=== PATIENT | female | born 1950 | race Caucasian/White ===

== ENCOUNTER 2023-02-23 09:53 | Outpatient (OUT) | payer MEDICARE, SELFPAY ==
[2023-02-23 10:16] LABS: Basophils Percent Auto 0.6 % (0.2-2.0); Eosinophils Absolute Auto 0.2 10^3/uL (0.0-0.7); Eosinophils Percent Auto 2.6 % (0.9-7.0); Hematocrit 43.2 % (36.0-48.0); Hemoglobin 14.1 g/dL (12.0-16.0); Lymphocytes Absolute Auto 3.7 10^3/uL (1.2-3.8); Lymphocytes Percent Auto 50.8 % (20.5-60.0); Mean Corpuscular HGB Conc 32.6 g/dL (29.9-35.2); Mean Corpuscular Hemoglobin 29.3 pg (26.7-34.0); Mean Corpuscular Volume 89.6 fL (81.0-99.0); Mean Platelet Volume 11.3 fL (9.5-13.5); Monocytes Absolute Auto 0.5 10^3/uL (0.3-0.8); Monocytes Percent Auto 6.2 % (1.7-12.0); Neutrophils Absolute Auto 2.9 10^3/uL (1.4-6.5); Neutrophils Percent Auto 39.8 % (43.0-75.0); Platelet Count 218 10^3/uL (150-450); Red Blood Count 4.82 10^6/uL (4.20-5.40); Red Cell Distribution Width 14.3 % (11.0-15.0); White Blood Count 7.3 10^3/uL (4.0-11.0)
[2023-02-23 11:11] LABS: Alanine Aminotransferase 58 U/L (14-59); Anion Gap 14.3; BUN Creatinine Ratio 18.2; Calcium 9.2 mg/dL (8.5-10.1); Carbon Dioxide 25.6 mmol/L (21.0-32.0); Chloride 104 mmol/L (98-107); Chol HDL Ratio 3.6; Cholesterol 151 mg/dL (<=200); Estimated GFR (African America >60 (>=60); Estimated GFR (Non-African Ame >60 (>=60); Glucose 111 mg/dL (74-106); HDL Cholesterol 42 mg/dL (40-60); Potassium 3.9 mmol/L (3.5-5.1); Sodium 140 mmol/L (136-145); Thyroid Stimulating Hormone 4.853 uIU/mL (0.358-3.740); Triglycerides 95 mg/dL (<=150)
== END 2023-02-23 09:54 | disposition home or self-care (01) ==
LOC: LAB 09:55
PROVIDERS: PCP Internal Medicine; Visit Provider Internal Medicine
DX: Z79.899 Other long term (current) drug therapy (principal); E78.00 Pure hypercholesterolemia, unspecified; I10 Essential (primary) hypertension; E55.9 Vitamin D deficiency, unspecified; E06.3 Autoimmune thyroiditis
CPT/HCPCS: 36415; 80048; 80061; 82306; 84443; 84460; 85025

== ENCOUNTER 2023-05-18 10:50 | Outpatient (OUT) | payer MEDICARE, SELFPAY ==
--- NOTE | 2023-05-18 10:55 | MM_ITS ---
Patient Name: EPI GEORGE MR#: [id number] : 1950 Exam Date: 05/18/2023 Ordering Doctor: DR Al Soto D.O. RADIOLOGY REPORT PROCEDURE: MM TOMOSYNTHESIS SCREENING BI COMPARISON: MG MAMM SCREEN 3D IFEANYI CAD, 03/28/2021. MG MAMM SCREEN 3D IFEANYI CAD, 05/16/2022. INDICATIONS: screening Calculator Name NCI Breast Cancer Risk Assessment Tool 5 Year Breast Cancer Risk 1.30% Lifetime Breast Cancer Risk 3.30% Personal Breast Cancer No Personal Ovarian Cancer No Treatments None Family Cancers None LOCATION: [facility] BREAST COMPOSITION: Heterogeneously dense,which may obscure small masses. FINDINGS: DIAGNOSTIC CATEGORY 1--NEGATIVE. NO CHANGE FROM COMPARISON ASSESSMENT. Scattered benign-appearing calcifications are present. Scattered benign-appearing lymph nodes are present. RIGHT BREAST: No significant suspicious finding. LEFT BREAST: No significant suspicious finding. RECOMMENDATIONS: ROUTINE MAMMOGRAM AND CLINICAL EVALUATION IN 12 MONTHS. PLEASE NOTE: A NORMAL MAMMOGRAM DOES NOT EXCLUDE THE POSSIBILITY OF BREAST CANCER. A CLINICALLY SUSPICIOUS PALPABLE LUMP SHOULD BE BIOPSIED. Dictated by: Renan Ryder MD on 05/18/2023 at 14:17 Approved by: Renan Ryder MD on 05/18/2023 at 14:18
--- NOTE | 2023-05-18 10:55 | XR_ITS ---
[address] [address] Patient Name: EPI GEORGE MRN: [id number] date: 1950 Sex: F Assigned Patient Location: MAMMO Current Patient Location: [facility] Accession/Order Number: [id number] Exam Date: 05/18/2023 11:15 Report Date: 05/18/2023 11:49 At the request of: EDGAR LEVINE Procedure: XR DEXA axial skeleton EXAMINATION: XR DEXA axial skeleton, 05/18/2023 11:15 AM EST HISTORY: menopause Z78.0 COMPARISON: 2021, 2016, 2008. TECHNIQUE: Dual-energy X-ray absorptiometry (DEXA) bone density study performed for the axial skeleton. HISTORY: menopause Z78.0 FINDINGS: Bone mineral density AP spine L1-L4 measures 1.108 g/sq cm. T score -0.6. WHO classification: Normal. Lowest bone mineral density left femoral trochanter measures 0.662 g/sq cm. T score -1.6. WHO classification: Osteopenia XR/XR DEXA axial skeleton IMPRESSION: Osteopenia. Moderate fracture risk Electronically authenticated by: FRANCESCO PARKER Date: 05/18/2023 11:49
--- OUTSIDE RECORDS SUMMARY | 2023-05-18 11:12 | XMS_ITS | CCD ---
Author Name Unknown Address [address] [place] [address] Organization [facility] Care Team Providers Care Veterinary Technician Instructor Name Role Phone TAMERA [facility] Primary Care Unavailable DANNY, STEVIE Carbajal Attending Unavailable CROAK, STEVIE Carbajal Admitting Unavailable BALL, DR HERNÁNDEZ Admitting Unavailable BALL, DR HERNÁNDEZ Attending Unavailable BALL, DR HERNÁNDEZ Primary Care Unavailable BALL, DR HERNÁNDEZ Consulting Unavailable ZieberDandre Consulting Unavailable BALL, DR HERNÁNDEZ Admitting Unavailable BALL, DR HERNÁNDEZ Attending Unavailable BALL, DR HERNÁNDEZ Primary Care Unavailable BALL, DR HERNÁNDEZ Consulting Unavailable BALL, DR HERNÁNDEZ Admitting Unavailable BALL, DR HERNÁNDEZ Attending Unavailable BALL, DR HERNÁNDEZ Primary Care Unavailable BALL, DR HERNÁNDEZ Consulting Unavailable REQUEST, DR GONSALVES LISTED Admitting Unavaila ble REQUEST, DR GONSALVES LISTED Attending Unavaila ble BALL, DR HERNÁNDEZ Primary Care Unavailable REQUEST, DR GONSALVES LISTED Consulting Unavaila ble Ball, Al Unavailable Allergies Allergy Classification Reported Allergen(s) Allergy Type Date of Onset Reaction(s) Facility (1 source) Sulfamethoxazole / Trimethoprim Drug Allergy [facility] Repository (2 sources) patient allergy list reviewed by nurse or physicia Propensity to adverse reactions 06-30-19 Comment:Done [facility] Other (2 sources) Allergies Reconciled Propensity to adverse reactions Unknown [facility] Other (3 sources) Substance with sulfonamide structure and antibacterial mechanism of action (substance) Drug allergy 03-29-19 Unknown [facility] Other Medications Current Medications Medication Drug Class(es) Dates Sig (Normalized) Sig (Original) amLODIPine 2.5 mg oral tablet (4 sources) Dihydropyridine Calcium Channel Mar Start: 05-11-2023 take 2.5 mg by mouth twice daily Amlodipine Active 2.5 MG PO Twice daily May 11, 2023 12:00am take 1 tablet by mouth twice vidhi ly amLODIPine Besylate 2.5 MG 1 tablet Orally twice daily for 90 days Active take 1 tablet by mouth once henrietta y amLODIPine Besylate 2.5 MG Take 1 tablet by mouth once daily for 90 Active atorvastatin (3 sources) HMG-CoA Reductase Inhibitor Atorvastatin Calcium Active estradiol 0.1 mg/ml vaginal cream (2 sources) Estrogen Start: 05-11-2023 Estradiol Active 1 APPLICATOR VAGINAL As Directed May 11, 2023 12:00am Estradiol 0.1 MG /GM as directed Vaginal Active levothyroxine sodium 0.075 mg oral tablet (4 sources) l-Thyroxine Start: 05-11-2023 take 1 tablet by mouth once daily Levothyroxine (Euthyrox) 75 mcg tablet Active 75 MCG PO Daily May 11, 2023 12:00am Start: 02-26-2022 take 1 tablet by suzie th every twenty-four hours Euthyrox 75 MCG 1 tablet on an empty stomach oral daily for 90 days *Pick strength-form from [employer] for eRX* Feb, Active Start: 02-26-2022 take 1 tablet by mouth once da dario Euthyrox 75mcg Euthyrox 75mcg, 1 Tablet daily # 90, 02/26/2022, Ref. x3. Active oral daily for 90 *Pick strength-form from [employer] for eRX* Feb, Active losartan potassium 100 mg oral tablet (5 sources) Angiotensin 2 Receptor Mar Start: 05-11-2023 take 100 mg by mouth once daily Losartan Active 100 MG PO Daily May 11, 2023 12:00am Start: 02-26-2022 take 1 tablet by suzie th every twenty-four hours Losartan Potassium 100 MG 1 tablet Orally Once a day for 90 days Feb, Active lovastatin 20 mg oral tablet (4 sources) HMG-CoA Reductase Inhibitor Start: 05-11-2023 take 20 mg by mouth once daily Lovastatin Active 20 MG PO Daily May 11, 2023 12:00am Start: 02-26-2022 take 1 tablet by suzie th every twenty-four hours Lovastatin 20 MG 1 tablet oral daily for 90 days *Pick strength-form from [employer] for eRX* Feb, Active polymyxin b 11211 unt/ml / trimethoprim 1 mg/ml ophthalmic solution (1 source) Dihydrofolate Reductase Inhibitor Antibacterial, Polymyxin-class Antibacterial Start: 05-11-2023 take 1 drop(s) into the eye(s) four times daily Polymyxin B Sulf-Trimethoprim Active 1 DROPS OPHTHALMIC Four times daily 12 25May 11, 2023 12:00am Completed/Discontinued Medications Medication Drug Class(es) Dates Sig (Normalized) Sig (Original) cephalexin 500 mg oral capsule (3 sources) Cephalosporin Antibacterial Start: 09-26-2018 take 1 capsule by mouth every eight hours Cephalexin 500 MG 1 capsule Orally three times a day for 5 days Sep, Not-Taking/PRN Losartan Potassium-HCTZ (3 sources) Losartan Potassium-HCTZ Not-Taking/PRN Losartan Potassi um-HCTZ Active phenazopyridine hydrochloride 200 mg oral tablet (3 sources) Start: 09-26-2018 take 1 tablet by mouth every eight hours Pyridium 200 MG 1 tablet after meals Orally Three times a day for 2 day(s) Sep, Not-Taking/PRN Problems Active Problems Problem Classification Problem Date Documented Date Episodic/Chronic Diseases of white blood cells (7 sources) Lymphocytosis (symptomatic); Translations: [Lymphocytosis] Onset: 08-21-2021 Chronic Disorders of lipid metabolism (14 sources) Pure hypercholesterolemia, unspecified; Translations: [Hyperlipidemia] Onset: 06-29-2016 Resolved: 02-20-2021 Chronic Essential hypertension (9 sources) Essential (primary) hypertension; Translations: [Essential hypertension] Onset: 03-01-2022 Chronic Genitourinary symptoms and ill-defined conditions (3 sources) Polyuria; Translations: [Other polyuria] Episodic Immunizations and screening for infectious disease (3 sources) Vaccination given; Translations: [Encounter for immunization] Episodic Inflammation; infection of eye (except that caused by tuberculosis or sexually transmitteddisease) (2 sources) Bacterial conjunctivitis; Translations: [Unspecified conjunctivitis] 05-11-2023 Episodic Nutritional deficiencies (3 sources) Vitamin D deficiency; Translations: [Vitamin D deficiency, unspecified] Chronic Other aftercare (2 sources) Other correction (current) drug therapy; Translations: [OTH PROPERTY CUSTODIAN CURRENT DRUG THERAPY] Onset: 03-01-2022 Episodic Other aftercare (3 sources) Long-term current use of drug therapy; Translations: [Other 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 (current) drug therapy] Episodic Other injuries and conditions due to external causes (3 sources) History of fall; Translations: [History of falling] Episodic Other nutritional; endocrine; and metabolic disorders (3 sources) Overweight; Translations: [Overweight] Episodic Other screening for suspected conditions (not mental disorders or infectious disease) (5 sources) Encounter for screening mammogram for malignant neoplasm of breast; Translations: [ENC SCR MAMMO MALIG NEOPLASM BREAST] Onset: 05-16-2022 Episodic Prolapse of female genital organs (3 sources) Uterovaginal prolapse; Translations: [Uterovaginal prolapse, unspecified] Chronic Residual codes; unclassified (3 sources) Postmenopausal state; Translations: [Asymptomatic menopausal state] Episodic Residual codes; unclassified (3 sources) Procedure not done; Translations: [Procedure and treatment not carried out because of patient's decision for unspecified reasons] Episodic Residual codes; unclassified (1 source) Asymptomatic menopausal state Episodic Thyroid disorders (13 sources) Autoimmune thyroiditis; Translations: [Thyroiditis] Onset: 03-01-2022 Chronic Viral infection (6 sources) Herpes simplex; Translations: [Herpesviral infection, unspecified] Episodic Past or Other Problems Problem Classification Problem Date Documented Da te Episodic/Chronic Bacterial infection; unspecified site (3 sources) Bacterial infectious disease; Translations: [Bacterial infection, unspecified, in conditions classified elsewhere and of unspecified site] Onset: 09-29-2018 Episodic Malaise and fatigue (3 sources) Malaise and fatigue; Translations: [Other malaise and fatigue] Onset: 06-12-2017 Episodic Menopausal disorders (6 sources) Menopausal symptom; Translations: [Symptomatic menopausal or female climacteric states] Onset: 04-29-2016 Resolved: 02-20-2021 Chronic Residual codes; unclassified (3 sources) Requires influenza virus vaccination; Translations: [Need for prophylactic vaccination and inoculation, Influenza] Onset: 01-06-2018 Episodic Spondylosis; intervertebral disc disorders; other back problems (3 sources) Low back pain; Translations: [Low back pain, unspecified] Onset: 10-12-2018 Episodic Unclassified (3 sources) Long-term current use of drug therapy; Translations: [Long-term (current) use of other medications] Onset: 06-21-2018 Urinary tract infections (3 sources) Acute cystitis; Translations: [Acute cystitis without hematuria] Onset: 09-29-2018 Episodic Results Test Name Value Interpretation Reference Range Facility GEOVANNI - TSHon 06-05-2022 TSH 0.299 uIU/mL Critically low 0.358-3.740 [facility] Comment on above: Performed By: #### D ATTSH #### [facility] [address] [address] [address] Kali Haynes TSH RANGE SEE BELOW Normal [facility] Comment on above: Result Comment: <0.3 4 UIU/ml HYPERTHYROID 0.34-5.60 UIU/ml EUTHYROID >5.60 UIU/ml HYPOTHYROID Performed By: #### D ATTSH #### [facility] [address] [address] [address] Kali Haynes MG MAMM SCREEN 3D IFEANYI CADon 05-16-2022 MG MAMM SCREEN 3D IFEANYI CAD Patient: EPI DAILEY Exam Date: 05/16/2022 : 1950 Gender:F Ordering : DR AL SOTO D.O. Admission #: [id number] Family : Order #: [id number] CLICK HERE TO VIEW EXAM RADIOLOGY REPORT PROCEDURE: MAMMOGRAM SCREENING 3D BILATERAL CAD COMPARISON: MG MAMM SCREEN IFEANYI W CAD, 07/01/2018. MG MAMM SCREEN IFEANYI W CAD, 07/10/2016. MG MAMM IFEANYI SCRN W CAD DIG, 11/08/2014. MG MAMM SCREEN 3D IFEANYI CAD, 03/28/2021. INDICATIONS: Screening mammography Calculator Name NCI Breast Cancer Risk Assessment Tool 5 Year Breast Cancer Risk 1.30% Lifetime Breast Cancer Risk 3.50% Personal Breast Cancer No Personal Ovarian Cancer No Treatments None Family Cancers None LOCATION: [facility] BREAST COMPOSITION: Heterogeneously dense,which may obscure small masses. FINDINGS: DIAGNOSTIC CATEGORY 1--NEGATIVE. RIGHT BREAST: No significant suspicious finding. No significant change has occurred. LEFT BREAST: No significant suspicious finding. No significant change has occurred. RECOMMENDATIONS: ROUTINE MAMMOGRAM AND CLINICAL EVALUATION IN 12 MONTHS. PLEASE NOTE: A NORMAL MAMMOGRAM DOES NOT EXCLUDE THE POSSIBILITY OF BREAST CANCER. A CLINICALLY SUSPICIOUS PALPABLE LUMP SHOULD BE BIOPSIED. Dictated by: Dandre Ward M.D. on 05/16/2022 at 14:23 Approved by: Dandre Ward M.D. on 05/16/2022 at 14:31 Normal [facility] CBC AUTO DIFFon 02-24-2022 BASO # 0.0 103/ul Normal 0.0-0.1 [facility] Comment on above: Performed By: #### C BC #### [facility] [address] [address] [address] Kali Haynes Basophils/100 WBC (Bld) 0.5 % Normal 0.2-2.0 [facility] Comment on above: Performed By: #### C BC #### [facility] [address] [address] [address] Kali Haynes EO # 0.2 103/ul Normal 0.0-0.7 [facility] Comment on above: Performed By: #### C BC #### [facility] [address] [address] [address] Kali Haynes Eosinophils/100 WBC (Bld) 2.8 % Normal 0.9-7.0 [facility] Comment on above: Performed By: #### C BC #### [facility] [address] [address] [address] Kali Haynes Erythrocyte distribution width (RBC) [Ratio] 13.9 % Normal 11.0-15.0 [facility] Comment on above: Performed By: #### C BC #### [facility] [address] [address] [address] Kali Haynes Hematocrit (Bld) [Volume fraction] 43.0 % Normal 36.0-48.0 [facility] Comment on above: Performed By: #### C BC #### [facility] [address] [address] [address] Kali Haynes Hemoglobin (Bld) [Mass/Vol] 14.5 g/dL Normal 12.0-16.0 [facility] Comment on above: Performed By: #### C BC #### [facility] [address] [address] [address] Kali Haynes IG # 0.01 10e3/ul Normal 0.00-0.03 [facility] Comment on above: Performed By: #### C BC #### [facility] [address] [place] [address] Dr. Kali Haynes IG % 0.2 % Normal 0.0-0.5 [facility] Comment on above: Performed By: #### C BC #### [facility] [address] [place] [address] Dr. Kali Haynes LYMPH # 3.9 103/ul Critically high 1.2-3.8 [facility] Comment on above: Performed By: #### C BC #### [facility] [address] [place] [address] Dr. Kali Haynes Lymphocytes/100 WBC (Bld) 59.7 % Normal 20.5-60.0 [facility] Comment on above: Performed By: #### C BC #### [facility] [address] [place] [address] Dr. Kali Haynes MANUAL DIFF REQ NO Normal [facility] Comment on above: Performed By: #### C BC #### [facility] [address] [place] [address] Dr. Kali Haynes MCH (RBC) [Entitic mass] 29.3 pg Normal 26.7-34.0 [facility] Comment on above: Performed By: #### C BC #### [facility] [address] [place] [address] Dr. Kali Haynes MCHC (RBC) [Mass/Vol] 33.7 g/dL Normal 29.9-35.2 [facility] Comment on above: Performed By: #### C BC #### [facility] [address] [place] [address] Dr. Kali Haynes MCV (RBC) [Entitic vol] 86.9 fL Normal 81.0-99.0 [facility] Comment on above: Performed By: #### C BC #### [facility] [address] [place] [address] Dr. Kali Haynes MONO # 0.4 103/ul Normal 0.3-0.8 [facility] Comment on above: Performed By: #### C BC #### [facility] [address] [address] [address] Kali Haynes Monocytes/100 WBC (Bld) 6.5 % Normal 1.7-12.0 [facility] Comment on above: Performed By: #### C BC #### [facility] [address] [address] [address] Kali Haynes NEUT # 2.0 103/ul Normal 1.4-6.5 [facility] Comment on above: Performed By: #### C BC #### [facility] [address] [address] [address] Kali Haynes Neutrophils/100 WBC (Bld) 30.3 % Critically low 43.0-75.0 [facility] Comment on above: Performed By: #### C BC #### [facility] [address] [place] [address] Dr. Kali Haynes Platelet mean volume (Bld) [Entitic vol] 11.1 fL Normal 9.5-13.5 [facility] Comment on above: Performed By: #### C BC #### [facility] [address] [place] [address] Dr. Kali Haynes PLT 221 103/ul Normal 150-450 [facility] Comment on above: Performed By: #### C BC #### [facility] [address] [place] [address] Dr. Kali Haynes RBC 4.95 106/ul Normal 4.20-5.40 [facility] Comment on above: Performed By: #### C BC #### [facility] [address] [place] [address] Dr. Kali Haynes WBC 6.5 103/ul Normal 4.0-11.0 [facility] Comment on above: Performed By: #### C BC #### [facility] [address] [place] [address] Dr. Kali Haynes LIPID PROFILEon 02-24-2022 CHOL-HDL RATIO NORM SEE BELOW Normal [facility] Comment on above: Result Comment: 3.3 - 4.4 LOW RISK 4.4 - 7.1 AVERAGE RISK 7.1 - 11.0 MODERATE RISK >11.0 HIGH RISK Performed By: #### T SH, BMP, LIPID, ALT #### [facility] [address] [address] [address] Kali Haynes Cholesterol [Mass/Vol] 151 mg/dL Normal <=200 [facility] Comment on above: Performed By: #### T SH, BMP, LIPID, ALT #### [facility] [address] [address] [address] Kali Haynes Cholesterol in HDL [Mass/Vol] 39 mg/dL Critically low 40-60 [facility] Comment on above: Performed By: #### T SH, BMP, LIPID, ALT #### [facility] [address] [place] [address] Dr. Kali Haynes Cholesterol in LDL [Mass/Vol] 85.6 mg/dL Normal [facility] Comment on above: Performed By: #### T SH, BMP, LIPID, ALT #### [facility] [address] [address] [address] Kali Haynes Cholesterol.total/C holesterol in HDL [Mass ratio] 3.9 {ratio} Normal [facility] Comment on above: Performed By: #### T SH, BMP, LIPID, ALT #### [facility] [address] [place] [address] Dr. Kali Haynes HDL NORMAL > or = 60 mg/dl - LO W CARDIOVASCULAR RISK <40 mg/dl - HIGH CARDIOVASCULAR RISK Normal [facility] Comment on above: Performed By: #### T SH, BMP, LIPID, ALT #### [facility] [address] [place] [address] Dr. Kali Haynes LDL CALC NORMAL SEE BELOW Normal [facility] Comment on above: Result Comment: <100 mg/dl OPTIMAL 100 - 129 mg/dl NEAR OR ABOVE OPTIMAL 130 - 159 mg/dl BORDERLINE HIGH 160 - 189 mg/dl HIGH >190 mg/dl VERY HIGH Performed By: #### T SH, BMP, LIPID, ALT #### [facility] [address] [address] [address] Kali Haynes Triglyceride [Mass/Vol] 132 mg/dL Normal <=150 [facility] Comment on above: Performed By: #### T SH, BMP, LIPID, ALT #### [facility] [address] [address] [address] Kali Haynes VLDL CALC 26.4 mg/dL Normal [facility] Comment on above: Performed By: #### T SH, BMP, LIPID, ALT #### [facility] [address] [address] [address] Kali Haynes PROF CHEM 8 (BAS METB)on Anion gap [Moles/Vol] 12.5 mmol/L Normal [facility] Comment on above: Performed By: #### T SH, BMP, LIPID, ALT #### [facility] [address] [address] [address] Kali Haynes Calcium [Mass/Vol] 9.4 mg/dL Normal 8.5-10.1 [facility] Comment on above: Performed By: #### T SH, BMP, LIPID, ALT #### [facility] [address] [place] [address] Dr. Kali Haynes Chloride [Moles/Vol] 103 mmol/L Normal 98-107 [facility] Comment on above: Performed By: #### T SH, BMP, LIPID, ALT #### [facility] [address] [place] [address] Dr. Kali Haynes CO2 [Moles/Vol] 26.3 mmol/L Normal 21.0-32.0 [facility] Comment on above: Performed By: #### T SH, BMP, LIPID, ALT #### [facility] [address] [place] [address] Dr. Kali Haynes Creatinine [Mass/Vol] 0.82 mg/dL Normal 0.55-1.02 [facility] Comment on above: Performed By: #### T SH, BMP, LIPID, ALT #### [facility] [address] [place] [address] Dr. Kali Haynes EGFR-AF BURUNDIAN >60 Normal >=60 [facility] Comment on above: Performed By: #### T SH, BMP, LIPID, ALT #### [facility] [address] [address] [address] Kali Haynes EGFR-NON AF BURUNDIAN >60 Normal >=60 [facility] Comment on above: Performed By: #### T SH, BMP, LIPID, ALT #### [facility] [address] [address] [address] Kali Haynes Glucose [Mass/Vol] 110 mg/dL Critically high 74-106 [facility] Comment on above: Performed By: #### T SH, BMP, LIPID, ALT #### [facility] [address] [address] [address] Kali Haynes Potassium [Moles/Vol] 3.8 mmol/L Normal 3.5-5.1 [facility] Comment on above: Performed By: #### T SH, BMP, LIPID, ALT #### [facility] [address] [address] [address] Kali Haynes Sodium [Moles/Vol] 138 mmol/L Normal 136-145 [facility] Comment on above: Performed By: #### T SH, BMP, LIPID, ALT #### [facility] [address] [address] [address] Kali Haynes Urea nitrogen [Mass/Vol] 17.0 mg/dL Normal 7.0-18.0 [facility] Comment on above: Performed By: #### T SH, BMP, LIPID, ALT #### [facility] [address] [address] [address] Kali Haynes Urea nitrogen/Creatinine [Mass ratio] 20.7 mg/mg Normal [facility] Comment on above: Performed By: #### T SH, BMP, LIPID, ALT #### [facility] [address] [address] [address] Kali Haynes SGPTon 02-24-2022 ALT [Catalytic activity/Vol] 36 U/L Normal 14-59 [facility] Comment on above: Performed By: #### T SH, BMP, LIPID, ALT #### [facility] [address] [address] [address] Kali Haynes TSHon 02-24-2022 TSH 4.788 uIU/mL Critically high 0.358-3.740 [facility] Comment on above: Performed By: #### T SH, BMP, LIPID, ALT #### [facility] [address] [place] [address] Dr. Kali Haynes CBC AUTO DIFFon 08-21-2021 BASO # 0.0 103/ul Normal 0.0-0.1 [facility] Comment on above: Performed By: #### C BC #### [facility] [address] [place] [address] Dr. Kali Haynes Basophils/100 WBC (Bld) 0.5 % Normal 0.2-2.0 [facility] Comment on above: Performed By: #### C BC #### [facility] [address] [place] [address] Dr. Kali Haynes EO # 0.2 103/ul Normal 0.0-0.7 [facility] Comment on above: Performed By: #### C BC #### [facility] [address] [place] [address] Dr. Kali Haynes Eosinophils/100 WBC (Bld) 2.6 % Normal 0.9-7.0 [facility] Comment on above: Performed By: #### C BC #### [facility] [address] [place] [address] Dr. Kali Haynes Erythrocyte distribution width (RBC) [Ratio] 14.4 % Normal 11.0-15.0 [facility] Comment on above: Performed By: #### C BC #### [facility] [address] [place] [address] Dr. Kali Haynes Hematocrit (Bld) [Volume fraction] 40.4 % Normal 36.0-48.0 [facility] Comment on above: Performed By: #### C BC #### [facility] [address] [place] [address] Dr. Kali Haynes Hemoglobin (Bld) [Mass/Vol] 13.3 g/dL Normal 12.0-16.0 [facility] Comment on above: Performed By: #### C BC #### [facility] [address] [place] [address] Dr. Kali Haynes IG # 0.01 10e3/ul Normal 0.00-0.03 [facility] Comment on above: Performed By: #### C BC #### [facility] [address] [place] [address] Dr. Kali Haynes IG % 0.2 % Normal 0.0-0.5 [facility] Comment on above: Performed By: #### C BC #### [facility] [address] [place] [address] Dr. Kali Haynes LYMPH # 3.0 103/ul Normal 1.2-3.8 [facility] Comment on above: Performed By: #### C BC #### [facility] [address] [place] [address] Dr. Kali Haynes Lymphocytes/100 WBC (Bld) 48.6 % Normal 20.5-60.0 [facility] Comment on above: Performed By: #### C BC #### [facility] [address] [place] [address] Dr. Kali Haynes MANUAL DIFF REQ NO Normal [facility] Comment on above: Performed By: #### C BC #### [facility] [address] [place] [address] Dr. Kali Haynes MCH (RBC) [Entitic mass] 29.0 pg Normal 26.7-34.0 [facility] Comment on above: Performed By: #### C BC #### [facility] [address] [place] [address] Dr. Kali Haynes MCHC (RBC) [Mass/Vol] 32.9 g/dL Normal 29.9-35.2 [facility] Comment on above: Performed By: #### C BC #### [facility] [address] [place] [address] Dr. Kali Haynes MCV (RBC) [Entitic vol] 88.0 fL Normal 81.0-99.0 [facility] Comment on above: Performed By: #### C BC #### [facility] [address] [place] [address] Dr. Kali Haynes MONO # 0.5 103/ul Normal 0.3-0.8 [facility] Comment on above: Performed By: #### C BC #### [facility] Laboratory [address] [place] [address] Dr. Kali Haynes Monocytes/100 WBC (Bld) 7.4 % Normal 1.7-12.0 [facility] Comment on above: Performed By: #### C BC #### [facility] [address] [place] [address] Dr. Kali Haynes NEUT # 2.5 103/ul Normal 1.4-6.5 [facility] Comment on above: Performed By: #### C BC #### [facility] [address] [place] [address] Dr. Kali Haynes Neutrophils/100 WBC (Bld) 40.7 % Critically low 43.0-75.0 [facility] Comment on above: Performed By: #### C BC #### [facility] [address] [place] [address] Dr. Kali Haynes Platelet mean volume (Bld) [Entitic vol] 11.3 fL Normal 9.5-13.5 [facility] Comment on above: Performed By: #### C BC #### [facility] [address] [place] [address] Dr. Kali Haynes PLT 218 103/ul Normal 150-450 [facility] Comment on above: Performed By: #### C BC #### [facility] [address] [place] [address] Dr. Kali Haynes RBC 4.59 106/ul Normal 4.20-5.40 [facility] Comment on above: Performed By: #### C BC #### [facility] [address] [place] [address] Dr. Kali Haynes WBC 6.2 103/ul Normal 4.0-11.0 [facility] Comment on above: Performed By: #### C BC #### [facility] [address] [place] [address] Dr. Kali Haynes Basic Metab w/rfx MGon 10-12 (cont.) Normal [facility] Comment on above: Result Comment: Aver age GFR for 60-69 years old: 85 mL/min/1.73sq m Chronic Kidney Disease: <60 mL/min/1.73sq m Kidney failure: <15 mL/min/1.73sq m eGFR calculated using average adult body mass. Additional eGFR calculator available at: http://www.[employer]/multiple_crcl_2012.htm Performed By: #### C DP, BMPX #### [place] [address] Food Stand Manager: Antonio Vázquez MD Anion gap [Moles/Vol] 11 mmol/L Normal 9-17 [facility] Comment on above: Performed By: #### C DP, BMPX #### [place] [address] Food Stand Manager: Antonio Vázquez MD Calcium [Mass/Vol] 9.0 mg/dL Normal 8.6-10.4 [facility] Comment on above: Performed By: #### C DP, BMPX #### [place] [address] Food Stand Manager: Antonio Vázquez MD Chloride [Moles/Vol] 99 mmol/L Normal 98-107 [facility] Comment on above: Performed By: #### C DP, BMPX #### [place] [address] Food Stand Manager: Antonio Vázquez MD CO2 [Moles/Vol] 21 mmol/L Normal 20-31 [facility] Comment on above: Performed By: #### C DP, BMPX #### [place] [id number] Food Stand Manager: Antonio Vázquez MD Creatinine [Mass/Vol] 0.63 mg/dL Normal 0.50-0.90 [facility] Comment on above: Performed By: #### C DP, BMPX #### [facility] [address] [place], [place] [id number] Food Stand Manager: Antonio Vázquez MD GFR, Amer >60 Normal >60 [facility] Comment on above: Performed By: #### C DP, BMPX #### [facility] [id number] [place], [place] [id number] Food Stand Manager: Antonio Vázquez MD GFR,non Amer >60 Normal >60 [facility] Comment on above: Performed By: #### C DP, BMPX #### [place] [id number] Food Stand Manager: Antonio Vázquez MD Glucose [Mass/Vol] 132 mg/dL High 70-99 [facility] Comment on above: Performed By: #### C DP, BMPX #### [place] [id number] Food Stand Manager: Antonio Vázquez MD Potassium [Moles/Vol] 3.7 mmol/L Normal 3.7-5.3 [facility] Comment on above: Performed By: #### C DP, BMPX #### [place] [id number] Food Stand Manager: Antonio Vázquez MD Sodium [Moles/Vol] 131 mmol/L Low 135-144 [facility] Comment on above: Performed By: #### C DP, BMPX #### [address] [id number] Food Stand Manager: Antonio Vázquez MD Urea nitrogen [Mass/Vol] 13 mg/dL Normal 8-23 [facility] Comment on above: Performed By: #### C DP, BMPX #### [place] [address] Food Stand Manager: Antonio Vázquez MD BUN/CRE Ratio NOT REPORTED Normal -20 [facility] Comment on above: Performed By: #### C DP, BMPX #### [place] [address] Food Stand Manager: Antonio Vázquez MD Staging: NOT REPORTED Normal [facility] Comment on above: Performed By: #### C DP, BMPX #### [place] [address] Food Stand Manager: Antonio Vázquez MD CBC with Diffon 10-12-2020 Abs. Basophil 0.10 k/uL Normal 0.0-0.2 [facility] Comment on above: Performed By: #### C DP, BMPX #### [place] [address] Food Stand Manager: Antonio Vázquez MD Abs.Neutrophil (Seg) 6.20 k/uL Normal 1.8-7.7 [facility] Comment on above: Performed By: #### C DP, BMPX #### [place] [address] Food Stand Manager: Antonio Vázquez MD Basophils/100 WBC (Bld) 1 % Normal 0-2 [facility] Comment on above: Performed By: #### C DP, BMPX #### [place] [address] Food Stand Manager: Antonio Vázquez MD Eosinophils (Bld) [#/Vol] 0.00 10*3/uL Normal 0.0-0.4 [facility] Comment on above: Performed By: #### C DP, BMPX #### [place] [address] Food Stand Manager: Antonio Vázquez MD Eosinophils/100 WBC (Bld) 0 % Low 1-4 [facility] Comment on above: Performed By: #### C DP, BMPX #### [place] [address] Food Stand Manager: Antonio Vázquez MD Erythrocyte distribution width (RBC) [Ratio] 14.0 % Normal 12.5-15.4 [facility] Comment on above: Performed By: #### C DP, BMPX #### [place] [address] Food Stand Manager: Antonio Vázquez MD Hematocrit (Bld) [Volume fraction] 34.5 % Low 36-46 [facility] Comment on above: Performed By: #### C DP, BMPX #### [place] [address] Food Stand Manager: Antonio Vázquez MD Hemoglobin (Bld) [Mass/Vol] 11.3 g/dL Low 12.0-16.0 [facility] Comment on above: Performed By: #### C DP, BMPX #### [place] [address] Food Stand Manager: Antonio Vázquez MD Lymphocytes (Bld) [#/Vol] 4.10 10*3/uL Normal 1.0-4.8 [facility] Comment on above: Performed By: #### C DP, BMPX #### [place] [address] Food Stand Manager: Antonio Vázquez MD Lymphocytes/100 WBC (Bld) 38 % Normal 24-44 [facility] Comment on above: Performed By: #### C DP, BMPX #### [place] [address] Food Stand Manager: Antonio Vázquez MD MCH (RBC) [Entitic mass] 29.7 pg Normal 26-34 [facility] Comment on above: Performed By: #### C DP, BMPX #### [place] [address] Food Stand Manager: Antonio Vázquez MD MCHC (RBC) [Mass/Vol] 32.9 g/dL Normal 31-37 [facility] Comment on above: Performed By: #### C DP, BMPX #### [place] [address] Food Stand Manager: Antonio Vázquez MD MCV (RBC) [Entitic vol] 90.4 fL Normal 80-100 [facility] Comment on above: Performed By: #### C DP, BMPX #### [place] [address] Food Stand Manager: Antonio Vázquez MD Monocytes (Bld) [#/Vol] 0.50 10*3/uL Normal 0.1-1.2 [facility] Comment on above: Performed By: #### C DP, BMPX #### [place] [address] Food Stand Manager: Antonio Vázquez MD Monocytes/100 WBC (Bld) 5 % Normal 2-11 [facility] Comment on above: Performed By: #### C DP, BMPX #### [place] [address] Food Stand Manager: Antoino Vázquez MD Neutrophil (Seg) 56 % Normal 36-66 [facility] Comment on above: Performed By: #### C DP, BMPX #### [place] [id number] Food Stand Manager: Antonio Vázquez MD Platelet mean volume (Bld) [Entitic vol] 9.6 fL Normal 6.0-12.0 [facility] Comment on above: Performed By: #### C DP, BMPX #### [place] [id number] Food Stand Manager: Antonio Vázquez MD Platelets (Bld) [#/Vol] 172 10*3/uL Normal 140-450 [facility] Comment on above: Performed By: #### C DP, BMPX #### [place] [address] Food Stand Manager: Antonio Vázquez MD RBC (Bld) [#/Vol] 3.81 10*6/uL Low 4.0-5.2 [facility] Comment on above: Performed By: #### C DP, BMPX #### [place] [address] Food Stand Manager: Antonio Vázquez MD WBC (Bld) [#/Vol] 11.0 10*3/uL Normal 3.5-11.0 [facility] Comment on above: Performed By: #### C DP, BMPX #### [place] [id number] Food Stand Manager: Antonio Vázquez MD Abs.Imm.Granulocyte NOT REPORTED Normal 0.00-0.30 [facility] Comment on above: Performed By: #### C DP, BMPX #### [facility] [address] [place] [address] Food Stand Manager: Antonio Vázquez MD Auto Diff Performed NOT REPORTED Normal [facility] Comment on above: Performed By: #### C DP, BMPX #### [address] [address] Food Stand Manager: Antonio Vázquez MD Immature Granulocyte NOT REPORTED Normal 0 [facility] Comment on above: Performed By: #### C DP, BMPX #### [place] [address] Food Stand Manager: Antonio Vázquez MD NRBC Automated NOT REPORTED Normal [facility] Comment on above: Performed By: #### C DP, BMPX #### [place] [address] Food Stand Manager: Antonio Vázquez MD Platelet Estimate NOT REPORTED Normal [facility] Comment on above: Performed By: #### C DP, BMPX #### [place] [address] Food Stand Manager: Antonio Vázquez MD RBC morphology finding Nom (Bld) NOT REPORTED Normal [facility] Comment on above: Performed By: #### C DP, BMPX #### [place] [address] Food Stand Manager: Antonio Vázquez MD WBC Morphology NOT REPORTED Normal [facility] Comment on above: Performed By: #### C DP, BMPX #### [place] [id number] Food Stand Manager: Antonio Vázquez MD OPERATIVE REPORTon 1 OPERATIVE REPORT [address] [place] [address] OPERATIVE REPORT PATIENT NAME: EPI DAILEY : 1950 MED REC NO: [id number] ROOM: [facility] ACCOUNT NO: [id number] ADMIT DATE: 10/11/2020 PROVIDER: Stevie Hopper DATE OF PROCEDURE: 10/11/2020 INDICATIONS FOR SURGERY: Symptomatic pelvic organ prolapse and stress urinary incontinence. PREOPERATIVE DIAGNOSES: Grade 2 uterine prolapse, grade 3 cystocele, grade 1-2 rectocele under anesthesia with stress urinary incontinence. POSTOPERATIVE DIAGNOSES: Grade 2 uterine prolapse, grade 3 cystocele, grade 1-2 rectocele under anesthesia with stress urinary incontinence plus enterocele and grade 1 endometriosis of the right uterosacral ligament. PROCEDURES: Robotic-assisted laparoscopic hysterectomy with bilateral salpingo-oophorectomy, internal Galdamez-Montelongo culdoplasty with uterosacral suspension and enterocele repair, anterior colporrhaphy, cystourethroscopy, filling cystometrogram, Lynx retropubic sling placement, posterior colporrhaphy, fulguration of endometriosis. SURGEON: Stevie Hopper DO ASSISTANTS: Radha Martinez DO and Juanita Pacheco DO ANESTHESIA: General endotracheal. FINDINGS: As above. SPECIMENS: Uterus, cervix, fallopian tubes, ovaries, vaginal mucosa. BLOOD LOSS: 30 mL. COMPLICATIONS: None. IMPLANTS: Lynx retropubic sling. COURSE: Prior to the procedure, risks and benefits of the procedure explained to the patient. The patient understood and signed informed consent under no duress or confusion. She received a preoperative antibiotic and EPC cuffs were functional. She was taken back to the OR and prepped and draped in sterile fashion in the dorsal lithotomy position in [facility], confirmed to be neutrally positioned by myself. A surgical time-out was taken. A weighted speculum was placed in the vagina and a VCare uterine manipulator was placed without incident. A Awan catheter was also placed to drain clear urine. With the legs lowered and the patient in supine position, an infraumbilical skin incision was made. A Veress needle introduced in the intraperitoneal cavity. A saline test confirmed appropriate placement and adequate CO2 gas insufflation followed for an operative pneumoperitoneum. The Veress was exchanged for an 8-mm bladeless trocar, which was placed atraumatically. The patient was tipped in Trendelenburg position. 8-mm ports were placed in the right and left lower quadrants and a 12-mm port was placed in the right upper quadrant. The robot had bipolar [place] forceps docked in 2 with the robot and monopolar scissors in 4. The utero-ovarian, round, and broad ligaments were clamped, fulgurated and cut down to the level of the uterine vessels. Ureters were away. The broad ligaments were taken down and the vessels were skeletonized, clamped, fulgurated and cut. The bladder flap was taken down anteriorly. Uterosacral ligaments were transected posteriorly and there was some blueberry nodules of endometriosis on the right uterosacral ligament that were fulgurated. Eventually dissection down to the cuff was obtained and circumferential transection of the cuff away from the vagina was completed. Uterus and cervix were delivered vaginally. Tubo-ovarian structures were drawn into the midline, clamped, fulgurated, and cut and then delivered vaginally. The vaginal mucosa was then closed in a [id number] mucosal-mucosal fashion, incorporating the angles and uterosacral ligaments into the cuff for support. PDS suture was also used to complete an internal Galdamez-Montelongo culdoplasty and uterosacral suspension, thus obliterating the enterocele sac. A low-pressure test at this time confirmed some adequate hemostasis. The patient was lowered to 10 degrees Trendelenburg after robot was undocked. The laparoscope was kept active except for the accessory port, which had its fascia closed with a Tomas Solis fascial closure device and no defects were noted. This was to observe the sling being placed to ensure no intraperitoneal passage of the sling trocars. Next, for the sling, a marking pen was used to make two suprapubic hong staying 2 cm lateral to pubic symphysial midline. These were injected with 15 mL a piece of 1% lidocaine plain. The mid-urethra was injected with 5 mL of 1% lidocaine with epinephrine. Scalpel incisions were made in all three areas. Metzenbaum dissection staying superficial to the periurethral fascia, gained access to the retropubic bilaterally without undue increase in bleeding. The urethra was deviated during this time with the Awan catheter. Cystourethroscopy with 17-Filipino 30-degree cystourethroscope confirmed bilateral ureteral patency and Pyridium-stained urine out of the ureters with the Lasix challenge. There was no intravesical or intraurethral passage of sling trocars. The sling with sheath was then attached to the trocars (more content not included)... Normal [facility] Surgical Pathologyon 10-11-2 021 Surgical Pathology (NOTE) -- Diagnosis -- 1. UTERUS, BILATERAL TUBES AND OVARIES, HYSTERECTOMY WITH BILATERAL SALPINGO-OOPHORECTOMY: -ADENOMYOSIS. -BENIGN ENDOMETRIAL POLYPS. -WEAKLY PROLIFERATIVE ENDOMETRIUM. -MILD CHRONIC CERVICITIS WITH FOCAL EROSION. -BENIGN BILATERAL FALLOPIAN TUBES WITH BENIGN PARATUBAL CYSTS. -BENIGN BILATERAL OVARIES. 2. VAGINAL MUCOSA, EXCISION: -BENIGN SQUAMOUS MUCOSA WITH MILD STROMAL CHRONIC INFLAMMATION. Renan Keating M.D Electronically Signed Out 10/12/2020 Clinical Information Pre-op Diagnosis: CYSTOCELE, RECTOCELE, UTERINE PROLAPSE Operative Findings: UTERUS, BILATERAL TUBES AND OVARIES Operation Performed: HYSTERECTOMY VAGINAL LAPAROSCOPIC ROBOTIC ASSISTED WITH BILATERAL SALPINGO-OOPHORECTOMY, VAGINAL REPAIR ANTERIOR/POSTERIOR LYNX SLING CYSTOSCOPY Source of Specimen 1: UTERUS, BILATERAL TUBES, AND OVARIES 2: VAGINAL MUCOSA Gross Description 1. EPI ARIEL, UTERUS, BILATERAL TUBES AND OVARIES Uterus with attached cervix and separate adnexa. Dimensions: Uterus and cervix 7.6 x 5.2 x 2.5 cm. Weight: Uterus and cervix 42 grams, first tube and ovary 3 grams, second tube and ovary 4 grams. Serosa: [place]-ho. Cervix: 4.3 x 3.5 x 3.4 cm, unremarkable with a patent os. Endometrium: The cavity is 3.5 x 1.5 cm with a pale ho surface and anteriorly and posteriorly, there are two polypoid foci, 0.4 cm and 0.7 cm. The subjacent myometrium is unremarkable. Myometrium: The myometrium has a maximum thickness of 1.2 cm with no masses. Tubes/ovaries: The first fallopian tube segment is fimbriated, 3.5 cm long x 0.4 cm in diameter with a pink-ho serosa, a few adhesions and an unremarkable lumen. The 2.5 x 1.5 x 0.8 cm corresponding ovary has an intact pink-ho external surface. Sectioning reveals no masses. The second fimbriated fallopian tube segment is 4.5 cm long x 0.4 cm in diameter with a pink-ho serosa and an unremarkable lumen. The 2.0 x 1.2 x 0.7 cm corresponding ovary has a ho-pink external surface. Sectioning reveals no masses. Cassette summary: A anterior cervix, B posterior cervix, C-D anterior endomyometrium full thickness sections including polypoid focus, E-F posterior endomyometrium full thickness sections including polypoid focus, G-H first tube and ovary with tube in entirety, I-J second tube and ovary with tube in entirety. 2. EPI DAILEY, VAGINAL MUCOSA Wrinkled pink-white fragments, 4.0 x 1.8 x 0.6 cm in aggregate. No masses are seen. Equipment Engineering Technician sections 1cs. tm Microscopic Description 1, 2. Microscopic examination performed. SURGICAL PATHOLOGY CONSULTATION Patient Name: EPI DAILEY Rec: [id number] Path Number: [id number] [facility] ANATOMIC PATHOLOGY [address] [place] [id number] Normal [facility] Comment on above: Performed By: #### P PPVS #### [address] [address] Food Stand Manager: Matthew España MD Type + Screenon 10-11-2020 Type + Screen Sample Expiration 10/14/2020,2359 Arm Band Number BE [id number] ABO/Rh(D) B POSITIVE Antibody Screen NEGATIVE Normal [facility] Comment on above: Performed By: #### T YS #### [facility] [address] [place] [address] Food Stand Manager: Antonio Vázquez MD Auth for Release of Medical Recordson 03-30-2020 Auth for Release of Medical Records [id number] 0CD:127 [facility] Auth for Release of Medical Records [id number] 0CD:127 Normal [facility] Retail - Clinical Noteon Retail - Clinical Note [id number] CD:127 Normal [facility] BASIC METABOLIC PANELon 08- Calcium [Mass/Vol] 9.4 mg/dL Normal 8.6-10.3 [facility] Comment on above: Order Comment: No: D o not add to previous draw Performed By: #### 0 0071, 40592, 21584 #### [facility] [address] [place] [address], [place] Chloride [Moles/Vol] 102 mmol/L Normal 98-107 [facility] Comment on above: Order Comment: No: D o not add to previous draw Performed By: #### 0 0071, 33874, 57880 #### [facility] [address] [place] [address], [place] CO2 [Moles/Vol] 27 mmol/L Normal 21-31 [facility] Comment on above: Order Comment: No: D o not add to previous draw Performed By: #### 0 0071, 81783, 94771 #### [facility] [address] [place] [address], [place] Creatinine [Mass/Vol] 0.63 mg/dL Normal 0.60-1.20 [facility] Comment on above: Order Comment: No: D o not add to previous draw Performed By: #### 0 0071, 17959, 49862 #### [facility] [address] [place] [address], [place] GFR/1.73 sq M predicted among blacks MDRD (S/P/Bld) [Vol rate/Area] mL/min/{1.73_m2} Normal >60 [facility] Comment on above: Order Comment: No: D o not add to previous draw Performed By: #### 0 0071, 40778, 11474 #### [facility] [address] [place] [address], [place] GFR/1.73 sq M predicted among non-blacks MDRD (S/P/Bld) [Vol rate/Area] mL/min/{1.73_m2} Normal >60 [facility] Comment on above: Order Comment: No: D o not add to previous draw Performed By: #### 0 0071, 59263, 42977 #### [facility] [address] [place] [address], [place] Glucose [Mass/Vol] 129 mg/dL High 70-100 [facility] Comment on above: Order Comment: No: D o not add to previous draw Performed By: #### 0 0071, 69347, 60361 #### [facility] [address] [place] [address], [place] Potassium [Moles/Vol] 3.2 mmol/L Low 3.5-5.1 [facility] Comment on above: Order Comment: No: D o not add to previous draw Performed By: #### 0 0071, 65800, 53826 #### [facility] [address] [place] [address], [place] Sodium [Moles/Vol] 137 mmol/L Normal 136-145 [facility] Comment on above: Order Comment: No: D o not add to previous draw Performed By: #### 0 0071, 71155, 13972 #### [facility] [address] [place] [address], [place] Urea nitrogen [Mass/Vol] 11 mg/dL Normal 7-25 [facility] Comment on above: Order Comment: No: D o not add to previous draw Performed By: #### 0 0071, 93655, 60537 #### [facility] [address] [place] [address], [place] CBC COMPLETE BLOOD COUNTon 0 - Erythrocyte distribution width (RBC) [Ratio] 15.2 % High 11.5-15.0 [facility] Comment on above: Order Comment: No: D o not add to previous draw Performed By: #### 0 0071, 15823, 05228 #### [facility] [address] [place] [address], [place] Hematocrit (Bld) [Volume fraction] 37.7 % Normal 36.0-45.0 [facility] Comment on above: Order Comment: No: D o not add to previous draw Performed By: #### 0 0071, 73284, 34489 #### [facility] [address] [place] [address], [place] Hemoglobin (Bld) [Mass/Vol] 12.7 g/dL Normal 12.0-15.0 [facility] Comment on above: Order Comment: No: D o not add to previous draw Performed By: #### 0 0071, 83065, 72140 #### [facility] [address] [place] [address], [place] MCH (RBC) [Entitic mass] 28.7 pg Normal 27.0-33.0 [facility] Comment on above: Order Comment: No: D o not add to previous draw Performed By: #### 0 0071, 66895, 68890 #### [facility] [address] [place] [address], [place] MCHC (RBC) [Mass/Vol] 33.7 g/dL Normal 32.0-35.0 [facility] Comment on above: Order Comment: No: D o not add to previous draw Performed By: #### 0 0071, 85562, 34853 #### [facility] [address] [place] [address], [place] MCV (RBC) [Entitic vol] 85.1 fL Normal 82.0-98.0 [facility] Comment on above: Order Comment: No: D o not add to previous draw Performed By: #### 0 0071, 63276, 82101 #### [facility] [address] [place] [address], [place] Nucleated RBC/100 WBC (Bld) [Ratio] 0 % Normal 0-0 [facility] Comment on above: Order Comment: No: D o not add to previous draw Performed By: #### 0 0071, 11552, 78704 #### [facility] [address] [place] [address], [place] PLAT CNT 237 10*3/uL Normal 150-400 [facility] Comment on above: Order Comment: No: D o not add to previous draw Performed By: #### 0 0071, 88182, 57407 #### [facility] [address] [place] [address], [place] RBC (Bld) [#/Vol] 4.43 10*6/uL Normal 3.80-5.00 [facility] Comment on above: Order Comment: No: D o not add to previous draw Performed By: #### 0 0071, 90757, 37242 #### [facility] [address] [facility] [place] [address], [place] WBC (Bld) [#/Vol] 10.34 10*3/uL Normal 4.00-10.60 [facility] Comment on above: Order Comment: No: D o not add to previous draw Performed By: #### 0 0071, 07181, 23565 #### [facility] [address] Cardiovascular Lab Reporton 11-16-2018 Cardiovascular Lab Report [facility] Patient Name: [facility] Epi MR #: [id number] Department of Physician: Isaura Ching M.D. Division of Service Date: 11/15/2018 Cardiology Birthdate: 1950 Adult Cardiovascular Room #: 3AB 072113 Services [place] [address] Cardiovascular Laboratory Report FINAL IMPRESSIONS: 1. Mild plaque of the left anterior descending coronary artery, otherwise nonobstructive coronary arteries angiographically. 2. Normal global left ventricular systolic function by noninvasive imaging. 3. Suggestion of left ventricular hypertrophy by left ventriculography. 4. Normal right-sided heart pressures and wedge pressures. 5. Normal cardiac output/cardiac index. RECOMMENDATIONS: 1. The patient's presentation is most consistent with a type 2 uid-XR-souetuvhi myocardial infarction/supply-jim nd mismatch. This does not represent an acute coronary syndrome and the patient does not require dual antiplatelet therapy. 2. Aggressive cardiovascular risk factor modification. 3. Optimization of medical management; given plaque disease, aspirin, dqorldfv-vn-tzuo intensity statin therapy, a beta mar. If left ventricular hypertrophy is conformed, would recommend addition of an angiotension concerting enzyme inhibitor or receptor mar. 4. Further recommendations deferred to the inpatient services. PROCEDURES: Ultrasound-guided access of the right internal jugular vein, right heart catheterization, bilateral selective coronary angiography via right radial approach, left ventriculography. METHODS: After risks, benefits, and alternatives were explained, written informed consent was obtained. The patient was prepped and draped in the usual sterile fashion over the right neck and right wrist. Using 1% lidocaine solution, local infiltration anesthesia was achieved over the right neck. Using a modified Seldinger technique, a micropuncture kit and under ultrasound guidance, access of the right internal jugular vein was obtained. A 6-Filipino 11 cm sheath was inserted without difficulty. A Vazquez catheter was used for right heart catheterization measuring pressures in the right atrium, right ventricle, pulmonary artery, and pulmonary capillary wedge positions. Oxygen saturations were obtained and a cardiac output/cardiac index was calculated using the Fatou principle. The Vazquez catheter was removed. Local infiltration anesthesia was achieved over the right wrist. A micropuncture kit was used to access the right radial artery. A 6-Filipino Glidesheath was inserted without difficulty. Bilateral selective coronary angiography was performed using JR5 and JL3.5 catheters. An angled pigtail catheter was used for left ventriculography, using 33 mL at a constant rate of 11 mL/second. Aortic pullback pressure measurements were performed. At this point and after reviewing the images and data, it was elected to conclude the procedure. All catheters removed. The radial sheath was removed with application of a TR band per protocol to achieve optimal hemostasis. Overall, the patient tolerated the procedure well. There were no overt complications. She was to be transferred to the holding area in stable condition. FINDINGS: Hemodynamics: AO 162/87. RA 4. RV 28/3, 7. PA 28/11 (20). PCWP 8. TPG 12. Cardiac output 4.47/cardiac index 2.53. LEFT VENTRICULOGRAPHY: Single plane ventriculography in the right anterior oblique projection shows an ejection fraction estimated to be 50%-55% with no significant wall motion abnormalities or significant mitral regurgitation. There appears to be evidence of left ventricular hypertrophy. The aortic root appears within normal limits in size with no obvious dissection, flaps, or aneurysmal segments. CORONARY ARTERIES: Left main coronary artery. This arises from the left coronary cusp. It bifurcates into the left anterior descending and left circumflex coronary arteries. It is free of significant stenosis. Left anterior descending coronary artery. This shows mild plaque with luminal irregularities in the midportion. No significant high-grade stenosis seen. Left circumflex coronary artery. This is angiographically nonobstructive. Right coronary artery. This is a dominant vessel, giving rise to the posterior descending and posterolateral branches and is angiographically nonobstructive. INDICATIONS: The patient is a 68-year-old woman, who presented with urinary tract infection and sepsis. Troponin was found to be elevated, suggesting possible underlying coronary artery disease. She presented today for coronary angiography and an invasive hemodynamic study. Electronically Signed by: Baltazar Camilo M.D. 11/17/2018 10:17 A Baltazar Camilo M.D. Date Dict: 11/15/2018/11:30 Anne Camilo M.D. Date Trans: 11/16/2018 09:01 Tressa/alisa [id number] Normal [facility] LIVER BATTERYon 11-16-2018 Albumin [Mass/Vol] 3.6 g/dL Normal 3.5-5.7 [facility] Comment on above: Order Comment: No: D o not add to previous draw Performed By: #### 0 0071, [id number], 93882 #### [facility] [address] [place] [address], [place] ALKALINE PHOSPH 54 IU/L Normal 34-104 [facility] Comment on above: Order Comment: No: D o not add to previous draw Performed By: #### 0 0071, 20335, 04361 #### [facility] [address] [place] [address], [place] ALT [Catalytic activity/Vol] 63 U/L High 7-52 [facility] Comment on above: Order Comment: No: D o not add to previous draw Performed By: #### 0 0071, 16796, 27830 #### [facility] [address] [place] [address], [place] AST [Catalytic activity/Vol] 19 U/L Normal 13-39 [facility] Comment on above: Order Comment: No: D o not add to previous draw Performed By: #### 0 0071, 95898, 19391 #### [facility] [address] [place] [address], [place] Bilirubin [Mass/Vol] 0.5 mg/dL Normal 0.3-1.0 [facility] Comment on above: Order Comment: No: D o not add to previous draw Performed By: #### 0 0071, 27499, 93159 #### [facility] [address] [place] [address], [place] Bilirubin.direct [Mass/Vol] 0.1 mg/dL Normal 0.0-0.2 [facility] Comment on above: Order Comment: No: D o not add to previous draw Performed By: #### 0 0071, 56685, 75503 #### [facility] [address] [place] [address], [place] Protein [Mass/Vol] 6.5 g/dL Normal 6.0-8.3 [facility] Comment on above: Order Comment: No: D o not add to previous draw Performed By: #### 0 0071, 19261, 20473 #### [facility] [address] [place] [address], [place] MAGNESIUM BLOODon 11-16-2018 Magnesium [Mass/Vol] 1.8 mg/dL Low 1.9-2.7 [facility] Comment on above: Order Comment: No: D o not add to previous draw Performed By: #### 0 0071, 51360, 46583 #### [facility] [address] [place] [address], [place] PHOSPHORUS BLOODon 9 Phosphate [Mass/Vol] 3.1 mg/dL Normal 2.5-5.0 [facility] Comment on above: Order Comment: No: D o not add to previous draw Performed By: #### 0 0071, 38785, 28857 #### [facility] [address] [place] [address], [place] BASIC METABOLIC PANELon 10-22 Calcium [Mass/Vol] 9.0 mg/dL Normal 8.6-10.3 [facility] Comment on above: Order Comment: No: D o not add to previous draw Performed By: #### 0 0071, 46224, 93228 #### [facility] [address] [place] [address], [place] Chloride [Moles/Vol] 103 mmol/L Normal 98-107 [facility] Comment on above: Order Comment: No: D o not add to previous draw Performed By: #### 0 0071, 67257, 04080 #### [facility] [address] [place] [address], [place] CO2 [Moles/Vol] 25 mmol/L Normal 21-31 [facility] Comment on above: Order Comment: No: D o not add to previous draw Performed By: #### 0 0071, 89130, 30151 #### [facility] [address] [place] [address], [place] Creatinine [Mass/Vol] 0.65 mg/dL Normal 0.60-1.20 [facility] Comment on above: Order Comment: No: D o not add to previous draw Performed By: #### 0 0071, 04523, 61195 #### [facility] [address] [place] [address], [place] GFR/1.73 sq M predicted among blacks MDRD (S/P/Bld) [Vol rate/Area] mL/min/{1.73_m2} Normal >60 [facility] Comment on above: Order Comment: No: D o not add to previous draw Performed By: #### 0 0071, 28173, 21296 #### [facility] [address] [place] [address], [place] GFR/1.73 sq M predicted among non-blacks MDRD (S/P/Bld) [Vol rate/Area] mL/min/{1.73_m2} Normal >60 [facility] Comment on above: Order Comment: No: D o not add to previous draw Performed By: #### 0 0071, 26319, 16106 #### [facility] [address] [place] [address], [place] Glucose [Mass/Vol] 192 mg/dL High 70-100 [facility] Comment on above: Order Comment: No: D o not add to previous draw Performed By: #### 0 0071, 92361, 96114 #### [facility] [address] [place] [address], [place] Potassium [Moles/Vol] 3.0 mmol/L Low 3.5-5.1 [facility] Comment on above: Order Comment: No: D o not add to previous draw Performed By: #### 0 0071, 16249, 18961 #### [facility] [address] [place] [address], [place] Sodium [Moles/Vol] 138 mmol/L Normal 136-145 [facility] Comment on above: Order Comment: No: D o not add to previous draw Performed By: #### 0 0071, 54978, 16581 #### [facility] [address] [place] [address], [place] Urea nitrogen [Mass/Vol] 10 mg/dL Normal 7-25 [facility] Comment on above: Order Comment: No: D o not add to previous draw Performed By: #### 0 0071, 58767, 63166 #### [facility] [address] [place] [address], [place] LIVER BATTERYon 11-15-2018 Albumin [Mass/Vol] 3.3 g/dL Low 3.5-5.7 [facility] Comment on above: Order Comment: No: D o not add to previous draw Performed By: #### 0 0071, 07127, 99504 #### [facility] [address] [place] [address], [place] ALKALINE PHOSPH 51 IU/L Normal 34-104 [facility] Comment on above: Order Comment: No: D o not add to previous draw Performed By: #### 0 0071, 35778, 26419 #### [facility] [address] [place] [address], [place] ALT [Catalytic activity/Vol] 70 U/L High 7-52 [facility] Comment on above: Order Comment: No: D o not add to previous draw Performed By: #### 0 0071, 73622, 73823 #### [facility] [address] [place] [address], [place] AST [Catalytic activity/Vol] 22 U/L Normal 13-39 [facility] Comment on above: Order Comment: No: D o not add to previous draw Performed By: #### 0 0071, 61666, 80669 #### [facility] [address] [place] [address], [place] Bilirubin [Mass/Vol] 0.4 mg/dL Normal 0.3-1.0 [facility] Comment on above: Order Comment: No: D o not add to previous draw Performed By: #### 0 0071, 78080, 63162 #### [facility] [address] [place] [address], [place] Bilirubin.direct [Mass/Vol] 0.1 mg/dL Normal 0.0-0.2 [facility] Comment on above: Order Comment: No: D o not add to previous draw Performed By: #### 0 0071, 03276, 61993 #### [facility] [address] [place] [address], [place] Protein [Mass/Vol] 6.2 g/dL Normal 6.0-8.3 [facility] Comment on above: Order Comment: No: D o not add to previous draw Performed By: #### 0 0071, 01608, 30434 #### [facility] [address] [facility] [facility] UFH HEPARIN ASSAYon 11-16-19 19 UNFRACTIONATED HEPARIN 0.71 IU/mL High 0.30-0.70 [facility] Comment on above: Result Comment: [place] roxaban and Apixaban will interfere with the anti Xa assay used to monitor UFH and LMWH. Performed By: #### 3 0965 #### [facility] [address] BASIC METABOLIC PANELon 10-22 Calcium [Mass/Vol] 8.9 mg/dL Normal 8.6-10.3 [facility] Comment on above: Order Comment: No: D o not add to previous draw Criteria for reflexing a culture was not met. Please call the lab at [phone] within 24 hours of collection time if culture is needed Performed By: #### 3 6094 #### [facility] [address] [place] [address], [place] Chloride [Moles/Vol] 105 mmol/L Normal 98-107 [facility] Comment on above: Order Comment: No: D o not add to previous draw Criteria for reflexing a culture was not met. Please call the lab at [phone] within 24 hours of collection time if culture is needed Performed By: #### 3 0965 #### [facility] [address] [facility] [place] [address], [place] CO2 [Moles/Vol] 25 mmol/L Normal 21-31 [facility] Comment on above: Order Comment: No: D o not add to previous draw Criteria for reflexing a culture was not met. Please call the lab at [phone] within 24 hours of collection time if culture is needed Performed By: #### 3 0965 #### [facility] [address] [place] [address], [place] Creatinine [Mass/Vol] 0.64 mg/dL Normal 0.60-1.20 [facility] Comment on above: Order Comment: No: D o not add to previous draw Criteria for reflexing a culture was not met. Please call the lab at [phone] within 24 hours of collection time if culture is needed Performed By: #### 3 0965 #### [facility] [address] [place] [address], [place] GFR/1.73 sq M predicted among blacks MDRD (S/P/Bld) [Vol rate/Area] mL/min/{1.73_m2} Normal >60 [facility] Comment on above: Order Comment: No: D o not add to previous draw Criteria for reflexing a culture was not met. Please call the lab at [phone] within 24 hours of collection time if culture is needed Performed By: #### 3 0965 #### [facility] [address] [place] [address], [place] GFR/1.73 sq M predicted among non-blacks MDRD (S/P/Bld) [Vol rate/Area] mL/min/{1.73_m2} Normal >60 [facility] Comment on above: Order Comment: No: D o not add to previous draw Criteria for reflexing a culture was not met. Please call the lab at [phone] within 24 hours of collection time if culture is needed Performed By: #### 3 0965 #### [facility] [address] [place] [address], [place] Glucose [Mass/Vol] 129 mg/dL High 70-100 [facility] Comment on above: Order Comment: No: D o not add to previous draw Criteria for reflexing a culture was not met. Please call the lab at [phone] within 24 hours of collection time if culture is needed Performed By: #### 3 0965 #### [facility] [address] [place] [address], [place] Potassium [Moles/Vol] 3.6 mmol/L Normal 3.5-5.1 [facility] Comment on above: Order Comment: No: D o not add to previous draw Criteria for reflexing a culture was not met. Please call the lab at 7668 within 24 hours of collection time if culture is needed Performed By: #### 3 0965 #### [facility] [address] [facility] [place] [address], [place] Sodium [Moles/Vol] 137 mmol/L Normal 136-145 [facility] Comment on above: Order Comment: No: D o not add to previous draw Criteria for reflexing a culture was not met. Please call the lab at [phone] within 24 hours of collection time if culture is needed Performed By: #### 3 0965 #### [facility] [address] [facility] [place] [address], [place] Urea nitrogen [Mass/Vol] 11 mg/dL Normal 7-25 [facility] Comment on above: Order Comment: No: D o not add to previous draw Criteria for reflexing a culture was not met. Please call the lab at [phone] within 24 hours of collection time if culture is needed Performed By: #### 3 0965 #### [facility] [address] [place] [address], [place] CBC W/DIFFon 11-14-2018 ABS BASOPHILS 0.0 10*3/uL Normal 0.0-0.2 [facility] Comment on above: Order Comment: No: D o not add to previous draw Criteria for reflexing a culture was not met. Please call the lab at [phone] within 24 hours of collection time if culture is needed Performed By: #### 3 0965 #### [facility] [address] ABS IMM GRANS 0.0 10*3/uL Normal 0.0-0.2 [facility] Comment on above: Order Comment: No: D o not add to previous draw Criteria for reflexing a culture was not met. Please call the lab at [phone] within 24 hours of collection time if culture is needed Performed By: #### 3 0965 #### [facility] [address] ABS NEUTROPHILS 5.0 10*3/uL Normal 1.6-7.6 [facility] Comment on above: Order Comment: No: D o not add to previous draw Criteria for reflexing a culture was not met. Please call the lab at 7668 within 24 hours of collection time if culture is needed Performed By: #### 3 0965 #### [facility] [address] Basophils/100 WBC (Bld) 0.1 % Normal 0.0-1.0 [facility] Comment on above: Order Comment: No: D o not add to previous draw Criteria for reflexing a culture was not met. Please call the lab at [phone] within 24 hours of collection time if culture is needed Performed By: #### 3 0965 #### [facility] [address] [place] [address], [place] Eosinophils (Bld) [#/Vol] 0.2 10*3/uL Normal 0.0-0.5 [facility] Comment on above: Order Comment: No: D o not add to previous draw Criteria for reflexing a culture was not met. Please call the lab at 7668 within 24 hours of collection time if culture is needed Performed By: #### 3 0965 #### [facility] [address] [place] [address], [place] Eosinophils/100 WBC (Bld) 1.8 % Normal 0.0-6.0 [facility] Comment on above: Order Comment: No: D o not add to previous draw Criteria for reflexing a culture was not met. Please call the lab at [phone] within 24 hours of collection time if culture is needed Performed By: #### 3 0965 #### [facility] [address] [place] [address], [place] Erythrocyte distribution width (RBC) [Ratio] 15.9 % High 11.5-15.0 [facility] Comment on above: Order Comment: No: D o not add to previous draw Criteria for reflexing a culture was not met. Please call the lab at [phone] within 24 hours of collection time if culture is needed Performed By: #### 3 0965 #### [facility] [address] [facility] [place] [address], [place] Hematocrit (Bld) [Volume fraction] 36.8 % Normal 36.0-45.0 [facility] Comment on above: Order Comment: No: D o not add to previous draw Criteria for reflexing a culture was not met. Please call the lab at 7668 within 24 hours of collection time if culture is needed Performed By: #### 3 0965 #### [facility] [address] [facility] [place] [address], [place] Hemoglobin (Bld) [Mass/Vol] 12.1 g/dL Normal 12.0-15.0 [facility] Comment on above: Order Comment: No: D o not add to previous draw Criteria for reflexing a culture was not met. Please call the lab at 7668 within 24 hours of collection time if culture is needed Performed By: #### 3 0965 #### [facility] [address] [place] [address], [place] IMMATURE GRANS 0.4 % Normal 0.0-1.[address] [facility] Comment on above: Order Comment: No: D o not add to previous draw Criteria for reflexing a culture was not met. Please call the lab at [phone] within 24 hours of collection time if culture is needed Performed By: #### 3 0965 #### [facility] [address] [facility] [place] [address], [place] Lymphocytes (Bld) [#/Vol] 4.7 10*3/uL High 1.2-4.0 [facility] Comment on above: Order Comment: No: D o not add to previous draw Criteria for reflexing a culture was not met. Please call the lab at 7668 within 24 hours of collection time if culture is needed Performed By: #### 3 0965 #### [facility] [address] [place] [address], [place] Lymphocytes/100 WBC (Bld) 45.2 % High 20.0-45.0 [facility] Comment on above: Order Comment: No: D o not add to previous draw Criteria for reflexing a culture was not met. Please call the lab at 7668 within 24 hours of collection time if culture is needed Performed By: #### 3 0965 #### [facility] [address] [facility] [place] [address], [place] MCH (RBC) [Entitic mass] 28.7 pg Normal 27.0-33.0 [facility] Comment on above: Order Comment: No: D o not add to previous draw Criteria for reflexing a culture was not met. Please call the lab at [phone] within 24 hours of collection time if culture is needed Performed By: #### 3 0965 #### [facility] [address] [facility] [place] [address], [place] MCHC (RBC) [Mass/Vol] 32.9 g/dL Normal 32.0-35.0 [facility] Comment on above: Order Comment: No: D o not add to previous draw Criteria for reflexing a culture was not met. Please call the lab at 7668 within 24 hours of collection time if culture is needed Performed By: #### 3 0965 #### [facility] [address] [place] [address], [place] MCV (RBC) [Entitic vol] 87.2 fL Normal 82.0-98.0 [facility] Comment on above: Order Comment: No: D o not add to previous draw Criteria for reflexing a culture was not met. Please call the lab at 7668 within 24 hours of collection time if culture is needed Performed By: #### 3 0965 #### [facility] [address] [place] [address], [place] Monocytes (Bld) [#/Vol] 0.5 10*3/uL Normal 0.1-1.0 [facility] Comment on above: Order Comment: No: D o not add to previous draw Criteria for reflexing a culture was not met. Please call the lab at 7668 within 24 hours of collection time if culture is needed Performed By: #### 3 0965 #### [address] MONOS 4.5 % Low 5.0-12.0 [facility] Comment on above: Order Comment: No: D o not add to previous draw Criteria for reflexing a culture was not met. Please call the lab at 7668 within 24 hours of collection time if culture is needed Performed By: #### 3 0965 #### [facility] [address] Neutrophils/100 WBC (Bld) 48.0 % Normal 40.0-72.0 [facility] Comment on above: Order Comment: No: D o not add to previous draw Criteria for reflexing a culture was not met. Please call the lab at 7668 within 24 hours of collection time if culture is needed Performed By: #### 3 0965 #### [place] [address], [place] Nucleated RBC/100 WBC (Bld) [Ratio] 0 % Normal 0-0 [facility] Comment on above: Order Comment: No: D o not add to previous draw Criteria for reflexing a culture was not met. Please call the lab at 7668 within 24 hours of collection time if culture is needed Performed By: #### 3 0965 #### [facility] [address] [place] [address], [place] PLAT CNT 193 10*3/uL Normal 150-400 [facility] Comment on above: Order Comment: No: D o not add to previous draw Criteria for reflexing a culture was not met. Please call the lab at 7668 within 24 hours of collection time if culture is needed Performed By: #### 3 0965 #### [facility] [address] [place] [address], [place] RBC (Bld) [#/Vol] 4.22 10*6/uL Normal 3.80-5.00 [facility] Comment on above: Order Comment: No: D o not add to previous draw Criteria for reflexing a culture was not met. Please call the lab at [phone] within 24 hours of collection time if culture is needed Performed By: #### 3 0965 #### [address] WBC (Bld) [#/Vol] 10.38 10*3/uL Normal 4.00-10.60 [facility] Comment on above: Order Comment: No: D o not add to previous draw Criteria for reflexing a culture was not met. Please call the lab at [phone] within 24 hours of collection time if culture is needed Performed By: #### 3 0965 #### [address] CHEST AND LATERALon 11-15-19 19 CHEST AND LATERAL [facility] Department of Radiology [address] [place] [id number] ======== Patient Name: EPI DAILEY : 1950 Sex: F Age: Race: White Pt. Location: [address] [place] [address] Patient Status: I Ordered Date: 11/14/2018 8:00:00 AM Completed Date: 11/14/2018 12:39 PM Requesting Provider: ROBIN LEBLANC Attending Provider: NIR CENTENO Report Copy To: Signs & Symptoms: Shortness of Breath History: See Comments Comments: R/O Pulmonary Edema Exam: CHEST AND LATERAL ======== CHEST AND LATERAL 11/14/2018 12:39 PM EDT SIGNS AND SYMPTOMS: Shortness of Breath TECHNOLOGIST COMMENTS: Patient states having shortness of breath. Hx of HTN. QUESTION FOR THE RADIOLOGIST: R/O Pulmonary Edema PROTOCOL: AP(PA) and Lateral views were obtained. COMPARISON: None FINDINGS: Trachea is midline. The cardiomediastinal silhouette is within normal limits. Left basilar densities, likely representing atelectatic changes however developing pneumonia cannot be excluded. Small bilateral pleural effusions. No pneumothorax. No acute osseous abnormalities. Cervical fusion hardware is noted. IMPRESSION: * Left basilar densities, likely representing atelectatic changes * Small bilateral pleural effusions. Approved by:Gagan Greene on 11/14/2018 6:42 PM EDT. I, Jamey Hamilton, have reviewed the images and report and concur with these findings. Electronically signed by:Jamey Hamilton. Transcribed by: [email or web address], User Resident: GAGAN GREENE Electronically Signed by: JAMEY HAMILTON @ 11/15/2018 09:14 AM I personally read this/these film(s) with this resident Normal [facility] Comment on above: Order Comment: No: D o not add to previous draw Criteria for reflexing a culture was not met. Please call the lab at [phone] within 24 hours of collection time if culture is needed LIPID PROFILEon 11-14-2018 Cholesterol [Mass/Vol] 113 mg/dL Low 120-200 [facility] Comment on above: Order Comment: No: D o not add to previous draw Criteria for reflexing a culture was not met. Please call the lab at [phone] within 24 hours of collection time if culture is needed Result Comment: CHOL ESTEROL REFERENCE RANGE: 20 YEARS AND OLDER CARDIOVASCULAR RISK Less than 200 mg/dl Low Risk 200 to 239 mg/dl Borderline Risk 240 mg/dl and greater High Risk Performed By: #### 3 0965 #### [facility] [address] [place] [address], [place] Cholesterol in HDL [Mass/Vol] 29 mg/dL Normal 23-92 [facility] Comment on above: Order Comment: No: D o not add to previous draw Criteria for reflexing a culture was not met. Please call the lab at [phone] within 24 hours of collection time if culture is needed Result Comment: Slig ht variation in normal range could be due to gender and/or age. HDL CHOLESTEROL REFERENCE RANGE: 20 years and older Cardiovascular Risk > or =60 mg/dL Desirable 40 TO 59 mg/dL Low Risk <40 mg/dL High Risk Performed By: #### 3 0965 #### [facility] [address] [place] [address], [place] Cholesterol in LDL [Mass/Vol] 61 mg/dL Normal 0-130 [facility] Comment on above: Order Comment: No: D o not add to previous draw Criteria for reflexing a culture was not met. Please call the lab at [phone] within 24 hours of collection time if culture is needed Result Comment: LDL IS A CALCULATION LDL IS ONLY VALID IF THE TRIG IS LESS THAN 400. Performed By: #### 3 0965 #### [facility] [address] [place] [address], [place] Cholesterol.total/C holesterol in HDL [Mass ratio] 3.9 {ratio} Normal 0.0-4.5 [facility] Comment on above: Order Comment: No: D o not add to previous draw Criteria for reflexing a culture was not met. Please call the lab at [phone] within 24 hours of collection time if culture is needed Performed By: #### 3 0965 #### [facility] [address] NON-HDL CHOLESTEROL 84 mg/dL Normal [facility] Comment on above: Order Comment: No: D o not add to previous draw Criteria for reflexing a culture was not met. Please call the lab at [phone] within 24 hours of collection time if culture is needed Performed By: #### 3 0965 #### [facility] [address] Triglyceride [Mass/Vol] 113 mg/dL Normal 40-149 [facility] Comment on above: Order Comment: No: D o not add to previous draw Criteria for reflexing a culture was not met. Please call the lab at [phone] within 24 hours of collection time if culture is needed Result Comment: TRIG LYCERIDE REFERENCE RANGE: 20 YEARS AND OLDER CARDIOVASCULAR RISK LESS THAN 150 mg/dl LOW RISK 150 TO 199 mg/dl BORDERLINE RISK 200 mg/dl AND GREATER HIGH RISK Performed By: #### 3 0965 #### [facility] [address] [facility] [place] [address], [place] VLDL CHOL 23 mg/dL Normal 0-40 [facility] Comment on above: Order Comment: No: D o not add to previous draw Criteria for reflexing a culture was not met. Please call the lab at [phone] within 24 hours of collection time if culture is needed Performed By: #### 3 0965 #### [facility] [address] [facility] [address] MAGNESIUM BLOODon 11-14-2018 Magnesium [Mass/Vol] 2.0 mg/dL Normal 1.9-2.7 [facility] Comment on above: Order Comment: No: D o not add to previous draw Criteria for reflexing a culture was not met. Please call the lab at [phone] within 24 hours of collection time if culture is needed Performed By: #### 3 0965 #### [facility] [address] [place], [place] [address] MRI LUMBAR SPINE W WO CONTRA STon 11-14-2018 MRI LUMBAR SPINE W WO CONTRAST [facility] Department of Radiology [address] [place] [address] ======== Patient Name: EPI DAILEY : 1950 Sex: F Age: Race: White Pt. Location: [id number] Patient Status: I Ordered Date: 11/13/2018 7:45:00 PM Completed Date: 11/14/2018 12:26 PM Requesting Provider: ROBIN LEBLANC Attending Provider: NIR CENTENO Report Copy To: Signs & Symptoms: Weakness in Extremity (specify) History: See Comments Comments: R/O Herniated Disc (Ruptured), left lower extremitty Exam: MRI LUMBAR SPINE W WO CONTRAST ======== MRI LUMBAR SPINE W WO CONTRAST 11/14/2018 12:26 PM EDT SIGNS AND SYMPTOMS: Weakness in Extremity (specify) TECHNOLOGIST COMMENTS: LBP, LLE weakness x1 month QUESTION FOR THE RADIOLOGIST: R/O Herniated Disc (Ruptured), left lower extremitty PROTOCOL: The following pulse sequences were utilized when imaging the lumbar spine: sagittal T2, sagittal T1, sagittal STIR, and axial T2. CONTRAST: Contrast: DOTAREM, 15 milliliter, Intravenous COMPARISON: None. FINDINGS: The bones of the lumbar spine are in anatomic alignment. There is preservation of vertebral body heights and intervertebral disc spaces. The marrow signals within normal limits with suggestion of hemangioma at L5. The conus terminates at the T12-L1 level. No epidural or paraspinous fluid collection is appreciated. At T12-L1: There is a normal disc, central canal, and neural foramen. At L1-L2: There is a normal disc, central canal, and neural foramen. At L2-L3: There is a normal disc, central canal, and neural foramen. At L3-L4: There is a normal disc, central canal, and neural foramen. Mild bilateral facet joint hypertrophy and ligamentum flavum hypertrophy. At L4-L5: There is a normal disc, central canal, and neural foramen. Mild bilateral facet joint and ligamentum flavum hypertrophy. At L5-S1: There is a normal disc, central canal, and neural foramen. The graph following contrast demonstration, no pathologic enhancement is appreciated. IMPRESSION: Suggestion of hemangioma at L5. Otherwise, unremarkable pre and postcontrast MRI examination of the lumbosacral spine. Electronically signed by:Kunal Bloom. Transcribed by: [email or web address], User Resident: Electronically Signed by: KUNAL BLOOM @ 11/15/2018 02:54 PM Normal [facility] Comment on above: Order Comment: No: D o not add to previous draw PROTHROMBIN TIMEon 9 INR Coag (PPP) [Relative time] 1.04 {INR} Normal 0.91-1.16 [facility] Comment on above: Order Comment: No: D o not add to previous draw Criteria for reflexing a culture was not met. Please call the lab at [phone] within 24 hours of collection time if culture is needed Result Comment: ACCC P RECOMMENDED INR FOR WARFARIN THERAPY ------ ------- CONDITION INR PROPHYLAXIS OF VENOUS THROMBOSIS 2-3 (HIGH-RISK SURGERY) TREATMENT OF VENOUS THROMBOSIS 2-3 TREATMENT OF PULMONARY EMBOLISM 2-3 PREVENTION OF SYSTEMIC EMBOLISM: 2-3 ACUTE MYOCARDIAL INFARCTION TISSUE HEART VALVES VALVULAR HEART DISEASE ATRIAL FIBRILLATION RECURRENT SYSTEMIC EMBOLISM MECHANICAL HEART VALVE 2.5-3.5 FROM: ORAL ANTICOAGULANTS. MECHANISM OF ACTION, CLINICAL EFFECTIVENESS, AND OPTIMAL THERAPEUTIC RANGE. CHEST 1995;108:[id number]-246S. Performed By: #### 3 0965 #### [facility] [address] PT Coag (PPP) [Time] 13.6 s Normal 12.3-14.8 [facility] Comment on above: Order Comment: No: D o not add to previous draw Criteria for reflexing a culture was not met. Please call the lab at [phone] within 24 hours of collection time if culture is needed Result Comment: ALL RESULTS MUST BE INTERPRETED WITH RESPECT TO BLOOD DRAWING ARTIFACT OR DILUTION ERROR OF ANTICOAGULANT AT THE TIME OF SAMPLING. Performed By: #### 3 0965 #### [facility] [address] TROPONIN-Ion 11-14-2018 Troponin I.cardiac [Mass/Vol] 1.03 ng/mL Critically high 0.00-0.04 [facility] Comment on above: Order Comment: No: D o not add to previous draw Result Comment: M-MA EVIOUS CRITICAL RESULT REFERENCE RANGES: 0.00 - 0.04 ng/ml NORMAL 0.05 - 0.50 ng/ml INDETERMINATE > 0.50 ng/ml CONSISTENT WITH AN M.I. Performed By: #### 3 5200 #### [facility] [address] UFH HEPARIN ASSAYon 11-15-19 19 UNFRACTIONATED HEPARIN 0.21 IU/mL Low 0.30-0.70 [facility] Comment on above: Result Comment: Dora roxaban and Apixaban will interfere with the anti Xa assay used to monitor UFH and LMWH. Performed By: #### 3 0965 #### [facility] [address] UNFRACTIONATED HEPARIN 0.26 IU/mL Low 0.30-0.70 [facility] Comment on above: Result Comment: Dora roxaban and Apixaban will interfere with the anti Xa assay used to monitor UFH and LMWH. Performed By: #### 3 0965 #### [facility] [address] [place] [address], [place] UNFRACTIONATED HEPARIN 0.21 IU/mL Low 0.30-0.70 [facility] Comment on above: Result Comment: Dora roxaban and Apixaban will interfere with the anti Xa assay used to monitor UFH and LMWH. Performed By: #### 3 0965 #### [facility] [address] [place] [address], [place] UNFRACTIONATED HEPARIN <0.10 Critically low 0.30-0.70 [facility] Comment on above: Result Comment: [place] roxaban and Apixaban will interfere with the anti Xa assay used to monitor UFH and LMWH. RESULTS CHECKED AND CALLED. ACCURATELY READ BACK BY WILIAM DOMINGO RN @0058 Performed By: #### 3 0477 #### [facility] [address] [place] [address], [place] BASIC METABOLIC PANELon 08-2 Calcium [Mass/Vol] 9.2 mg/dL Normal 8.6-10.3 [facility] Comment on above: Order Comment: No: D o not add to previous draw Performed By: #### 0 0071, 16050, 48182 #### [facility] [address] [place] [address], [place] Chloride [Moles/Vol] 103 mmol/L Normal 98-107 [facility] Comment on above: Order Comment: No: D o not add to previous draw Performed By: #### 0 0071, 50630, 41196 #### [facility] [address] [place] [address], [place] CO2 [Moles/Vol] 22 mmol/L Normal 21-31 [facility] Comment on above: Order Comment: No: D o not add to previous draw Performed By: #### 0 0071, 96157, 52631 #### [facility] [address] [place] [address], [place] Creatinine [Mass/Vol] 0.74 mg/dL Normal 0.60-1.20 [facility] Comment on above: Order Comment: No: D o not add to previous draw Performed By: #### 0 0071, 77538, 03749 #### [facility] [address] [place] [address], [place] GFR/1.73 sq M predicted among blacks MDRD (S/P/Bld) [Vol rate/Area] mL/min/{1.73_m2} Normal >60 [facility] Comment on above: Order Comment: No: D o not add to previous draw Performed By: #### 0 0071, 77318, 15815 #### [facility] [address] [place] [address], [place] GFR/1.73 sq M predicted among non-blacks MDRD (S/P/Bld) [Vol rate/Area] mL/min/{1.73_m2} Normal >60 [facility] Comment on above: Order Comment: No: D o not add to previous draw Performed By: #### 0 0071, 10681, 13891 #### [facility] [address] [place] [address], [place] Glucose [Mass/Vol] 116 mg/dL High 70-100 [facility] Comment on above: Order Comment: No: D o not add to previous draw Performed By: #### 0 0071, 75848, 98500 #### [facility] [address] [place] [address], [place] Potassium [Moles/Vol] 3.5 mmol/L Normal 3.5-5.1 [facility] Comment on above: Order Comment: No: D o not add to previous draw Performed By: #### 0 0071, 52085, 42502 #### [facility] [address] [facility] Sodium [Moles/Vol] 137 mmol/L Normal 136-145 [facility] Comment on above: Order Comment: No: D o not add to previous draw Performed By: #### 0 0071, 83391, 00840 #### [facility] [address] [facility]. [address] Urea nitrogen [Mass/Vol] 14 mg/dL Normal 7-25 [facility] Comment on above: Order Comment: No: D o not add to previous draw Performed By: #### 0 0071, 63885, 88450 #### [facility] [address] BNP (B-TYPE NATRIURETIC PEPT NICK)on 11-13-2018 Natriuretic peptide B (Bld) [Mass/Vol] 695 pg/mL High 0-100 [facility] Comment on above: Order Comment: Yes: Add to Previous draw if able Result Comment: Give n the appropriate clinical setting a BNP result of >100 pg/mL indicates congestive heart failure. Performed By: #### 8 5123, 61847 #### [facility] [address] [facility]. [address] CBC W/DIFFon 11-13-2018 ABS BASOPHILS 0.0 10*3/uL Normal 0.0-0.2 [facility] Comment on above: Performed By: #### 5 0103 #### [facility] [address] [facility]. [address] ABS IMM GRANS 0.1 10*3/uL Normal 0.0-0.2 [facility] Comment on above: Performed By: #### 5 0103 #### [facility] [address] [facility]. [address] ABS NEUTROPHILS 9.9 10*3/uL High 1.6-7.6 [facility] Comment on above: Performed By: #### 5 0103 #### [facility] [address] [place] [address], [place] Basophils/100 WBC (Bld) 0.1 % Normal 0.0-1.0 [facility] Comment on above: Performed By: #### 5 0103 #### [facility] [address] [facility] [place] [address], [place] Eosinophils (Bld) [#/Vol] 0.0 10*3/uL Normal 0.0-0.5 [facility] Comment on above: Performed By: #### 5 0103 #### [facility] [address] [facility] [place] [address], [place] Eosinophils/100 WBC (Bld) 0.2 % Normal 0.0-6.0 [facility] Comment on above: Performed By: #### 5 0103 #### [facility] [address] [facility] Erythrocyte distribution width (RBC) [Ratio] 15.9 % High 11.5-15.0 [facility] Comment on above: Performed By: #### 5 0103 #### [facility] [address] [facility] [place] [address], [place] Hematocrit (Bld) [Volume fraction] 36.8 % Normal 36.0-45.0 [facility] Comment on above: Performed By: #### 5 0103 #### [facility] [address] [facility] [place] [address], [place] Hemoglobin (Bld) [Mass/Vol] 12.4 g/dL Normal 12.0-15.0 [facility] Comment on above: Performed By: #### 5 0103 #### [facility] [address] [place] [address], [place] IMMATURE GRANS 0.6 % Normal 0.0-1.0 [facility] Comment on above: Performed By: #### 5 3 #### [facility] [address] [facility]. [address] Lymphocytes (Bld) [#/Vol] 5.0 10*3/uL High 1.2-4.0 [facility] Comment on above: Performed By: #### 5 3 #### [facility] [address] [facility] [place] [address], [place] Lymphocytes/100 WBC (Bld) 32.2 % Normal 20.0-45.0 [facility] Comment on above: Performed By: #### 102 #### [facility] [address] MCH (RBC) [Entitic mass] 28.8 pg Normal 27.0-33.0 [facility] Comment on above: Performed By: #### 102 #### [facility] [address] [facility]. [address] MCHC (RBC) [Mass/Vol] 33.7 g/dL Normal 32.0-35.0 [facility] Comment on above: Performed By: #### 102 #### [facility] [address] MCV (RBC) [Entitic vol] 85.6 fL Normal 82.0-98.0 [facility] Comment on above: Performed By: #### 5 3 #### [facility] [address] [facility] [place] [address], [place] Monocytes (Bld) [#/Vol] 0.5 10*3/uL Normal 0.1-1.0 [facility] Comment on above: Performed By: #### 102 #### [facility] [address] [place] [address], [place] MONOS 3.3 % Low 5.0-12.0 [facility] Comment on above: Performed By: #### 102 #### [facility] [address] [place] [address], [place] Neutrophils/100 WBC (Bld) 63.6 % Normal 40.0-72.0 [facility] Comment on above: Performed By: #### 5 0103 #### [facility] [address] [place] [address], [place] Nucleated RBC/100 WBC (Bld) [Ratio] 0 % Normal 0-0 [facility] Comment on above: Performed By: #### 5 0103 #### [facility] [address] [place] [address], [place] PLAT CNT 213 10*3/uL Normal 150-400 [facility] Comment on above: Performed By: #### 5 0103 #### [facility] [address] [place] [address], [place] RBC (Bld) [#/Vol] 4.30 10*6/uL Normal 3.80-5.00 [facility] Comment on above: Performed By: #### 5 0103 #### [facility] [address] [facility] [place] [address], [place] WBC (Bld) [#/Vol] 15.51 10*3/uL High 4.00-10.60 [facility] Comment on above: Performed By: #### 5 0103 #### [facility] [address] [facility] [place] [address], [place] HEMOGLOBIN A1Con 11-13-2018 HbA1c (Bld) [Mass fraction] 117 mg/dL Normal 70-126 [facility] Comment on above: Order Comment: Yes: Add to Previous draw if able Performed By: #### 8 5123, 80493 #### [facility] [address] [place] [address], [place] HbA1c (Bld) [Mass fraction] 5.7 % Normal 4.0-6.0 [facility] Comment on above: Order Comment: Yes: Add to Previous draw if able Performed By: #### 8 5123, 84572 #### [facility] [address] [place] [address], [place] LIVER BATTERYon 11-13-2018 Albumin [Mass/Vol] 3.7 g/dL Normal 3.5-5.7 [facility] Comment on above: Order Comment: No: D o not add to previous draw Performed By: #### 0 0071, 06347, 23719 #### [facility] [address] [place] [address], [place] ALKALINE PHOSPH 61 IU/L Normal 34-104 [facility] Comment on above: Order Comment: No: D o not add to previous draw Performed By: #### 0 0071, 50321, 67238 #### [facility] [address] [place] [address], [place] ALT [Catalytic activity/Vol] 156 U/L High 7-52 [facility] Comment on above: Order Comment: No: D o not add to previous draw Performed By: #### 0 0071, 11563, 79821 #### [facility] [address] [place] [address], [place] AST [Catalytic activity/Vol] 62 U/L High 13-39 [facility] Comment on above: Order Comment: No: D o not add to previous draw Performed By: #### 0 0071, 04484, 21870 #### [facility] [address] [place] [address], [place] Bilirubin [Mass/Vol] 0.5 mg/dL Normal 0.3-1.0 [facility] Comment on above: Order Comment: No: D o not add to previous draw Performed By: #### 0 0071, 19467, 38201 #### [facility] [address] [place] [address], [place] Bilirubin.direct [Mass/Vol] 0.1 mg/dL Normal 0.0-0.2 [facility] Comment on above: Order Comment: No: D o not add to previous draw Performed By: #### 0 0071, 66947, 51685 #### [facility] [address] [place] [address], [place] Protein [Mass/Vol] 6.8 g/dL Normal 6.0-8.3 [facility] Comment on above: Order Comment: No: D o not add to previous draw Performed By: #### 0 0071, 23801, 00166 #### [facility] [address] [place] [address], [place] TROPONIN-Ion 11-13-2018 Troponin I.cardiac [Mass/Vol] 1.42 ng/mL Critically high 0.00-0.04 [facility] Comment on above: Order Comment: No: D o not add to previous draw Result Comment: M-MA EVIOUS CRITICAL RESULT REFERENCE RANGES: 0.00 - 0.04 ng/ml NORMAL 0.05 - 0.50 ng/ml INDETERMINATE > 0.50 ng/ml CONSISTENT WITH AN M.I. Performed By: #### 3 5200 #### [facility] [address] [facility] [place] [address], [place] Troponin I.cardiac [Mass/Vol] 1.12 ng/mL Critically high 0.00-0.04 [facility] Comment on above: Order Comment: No: D o not add to previous draw Result Comment: M-CR ITICAL RESULT(S) REVIEWED, CALLED TO AND READ BACK BY MONICA HERNANDEZ RN @ 2000 ON 11-13-18 REFERENCE RANGES: 0.00 - 0.04 ng/ml NORMAL 0.05 - 0.50 ng/ml INDETERMINATE > 0.50 ng/ml CONSISTENT WITH AN M.I. Performed By: #### 0 0071, 31361, 00857 #### [facility] [address] [place] [address], [place] URINALYSIS REFLEXon 11-14-19 19 Appearance (U) CLEAR Normal CLEAR [facility] Comment on above: Order Comment: No: D o not add to previous draw Criteria for reflexing a culture was not met. Please call the lab at [phone] within 24 hours of collection time if culture is needed Performed By: #### 3 0965 #### [facility] [address] [place] [address], [place] Bilirubin [Mass/Vol] Negative Normal NEGATIVE [facility] Comment on above: Order Comment: No: D o not add to previous draw Criteria for reflexing a culture was not met. Please call the lab at [phone] within 24 hours of collection time if culture is needed Performed By: #### 3 0965 #### [facility] [address] [place] [address], [place] BLOOD Negative Normal NEGATIVE [facility] Comment on above: Order Comment: No: D o not add to previous draw Criteria for reflexing a culture was not met. Please call the lab at [phone] within 24 hours of collection time if culture is needed Performed By: #### 3 0965 #### [facility] [address] [place] [address], [place] Color (U) YELLOW Abnormal YELLOW [facility] Comment on above: Order Comment: No: D o not add to previous draw Criteria for reflexing a culture was not met. Please call the lab at [phone] within 24 hours of collection time if culture is needed Performed By: #### 3 0965 #### [facility] [address] [place] [address], [place] Glucose [Mass/Vol] Negative Normal NEGATIVE [facility] Comment on above: Order Comment: No: D o not add to previous draw Criteria for reflexing a culture was not met. Please call the lab at [phone] within 24 hours of collection time if culture is needed Performed By: #### 3 0965 #### [facility] [address] [place] [address], [place] KETONE Negative Normal NEGATIVE [facility] Comment on above: Order Comment: No: D o not add to previous draw Criteria for reflexing a culture was not met. Please call the lab at [phone] within 24 hours of collection time if culture is needed Performed By: #### 3 0965 #### [facility] [address] [place] [address], [place] LEUK EMMANUELLE Negative Normal NEGATIVE [facility] Comment on above: Order Comment: No: D o not add to previous draw Criteria for reflexing a culture was not met. Please call the lab at [phone] within 24 hours of collection time if culture is needed Performed By: #### 3 0965 #### [facility] [address] [place] [address], [place] MICRO NOT DONE negative chemical reactions unless requested in original order Normal [facility] Comment on above: Order Comment: No: D o not add to previous draw Criteria for reflexing a culture was not met. Please call the lab at [phone] within 24 hours of collection time if culture is needed Performed By: #### 3 0965 #### [facility] [address] [place] [address], [place] Nitrite Ql (U) Negative Normal NEGATIVE [facility] Comment on above: Order Comment: No: D o not add to previous draw Criteria for reflexing a culture was not met. Please call the lab at [phone] within 24 hours of collection time if culture is needed Performed By: #### 3 0965 #### [facility] [address] [facility] [place] [address], [place] pH (Bld) 6.0 Normal 5.0-8.0 [facility] Comment on above: Order Comment: No: D o not add to previous draw Criteria for reflexing a culture was not met. Please call the lab at [phone] within 24 hours of collection time if culture is needed Performed By: #### 3 [id number] #### [facility] [address] [place] [address], [place] Protein (U) [Mass/Vol] Negative Normal NEGATIVE [facility] Comment on above: Order Comment: No: D o not add to previous draw Criteria for reflexing a culture was not met. Please call the lab at [phone] within 24 hours of collection time if culture is needed Performed By: #### 3 0965 #### [facility] [address] [place] [address], [place] SPEC GRAV 1.009 Low 1.015-1.020 [facility] Comment on above: Order Comment: No: D o not add to previous draw Criteria for reflexing a culture was not met. Please call the lab at [phone] within 24 hours of collection time if culture is needed Performed By: #### 3 0965 #### [facility] [address] [place] [address], [place] Vital Signs Date Time Vital Sign Value Performing Clinician Facility 05-11-2023 13:30-0500 Body height 162.56 cm [facility] 05-11-2023 13:30-0500 Body mass index (BMI) [Ratio] 27.6 kg/m2 [facility] 05-11-2023 13:30-0500 Body weight 73.02 kg [facility] 05-11-2023 13:30-0500 Diastolic blood pressure 72 mm[Hg] [facility] 05-11-2023 13:30-0500 Heart rate 84 /min [facility] 05-11-2023 13:30-0500 SaO2% (BldA) [Mass fraction] 97 % [facility] 05-11-2023 13:30-0500 Systolic blood pressure 168 mm[Hg] [facility] 02-27-2023 11:00-0500 Body height 162.56 cm [employer] Other [facility] 02-27-2023 11:00-0500 Body mass index (BMI) [Ratio] 26.43 kg/m2 [employer] Other [facility] Other 02-27-2023 11:00-0500 Body weight 69.85 kg Al [employer] Other [facility] 02-27-2023 11:00-0500 Diastolic blood pressure 72 mm[Hg] [employer] Other [facility] 02-27-2023 11:00-0500 Respiratory rate 18 /min Al Charles Other [facility] Other 02-27-2023 11:00-0500 Systolic blood pressure 190 mm[Hg] Al Soto Other [facility] Encounters Encounter Date Encounter Type Care Provider Facility Start: 05-11-2023 End: 05-11-2023 ambulatory [facility] Work Phone: Start: 05-11-2023 End: 05-11-2023 Patient encounter procedure [facility] Physician [facility] Work Phone: Start: 02-27-2023 End: 02-27-2023 ambulatory Al Soto Other [facility] Other Start: 02-27-2023 Patient encounter procedure Al Soto [facility] Start: 02-27-2023 End: 02-27-2023 Patient encounter procedure [facility] Physician [facility] Work Phone: Start: 02-19-2023 End: 02-19-2023 ambulatory Al Soto Other [facility] Other Start: 02-19-2023 Telephone encounter Al Soto [facility] Start: 12-29-2022 End: 12-29-2022 ambulatory Al Soto Other [facility] Other Start: 12-29-2022 Nursing evaluation o f patient and report Al Soto [facility] Start: 06-05-2022 End: 06-06-2022 ambulatory NONE LISTED REQUEST Facility:[facility] Start: 05-16-2022 End: 05-17-[address] AL SOTO Facility:[facility] Start: 02-26-2022 Adult health examination Al Soto Other [facility] Other Start: 02-24-2022 End: 02-25-[address] AL SOTO Facility:[facility] Start: 08-21-2021 End: 08-22-[address] AL SOTO Facility:[facility] Start: 10-11-2020 End: 10-12-2020 ambulatory TAMERA M Lesia [facility] Procedures Date Procedure Procedure Detail Performing Clinician Start: 06-29-2017 Screening mammography B jose m Soto Other Start: 04-29-2016 General examination of patient Al Soto Other Start: 04-29-2016 Screening for malign ant neoplasm of colon Al Soto Other Start: 04-29-2016 Screening for osteoporosis Al Soto Other Depression screening Geovany Soto Other Screening for malign ant neoplasm of breast Al Soto Other Immunizations Immunization Date Immunization Notes Care Provider Juana raymond 12-29-2022 influenza virus vaccine, unspecified formulation [facility] 12-29-2022 influenza, high dose seasonal, preservative-free Al Soto Other [employer] Other 12-26-2021 influenza virus vaccine, split virus (incl. purified surface antigen) Al Soto Other [employer] Other 12-26-2021 influenza virus vaccine, unspecified formulation [facility] 07-07-2018 pneumococcal polysaccharide vaccine, 23 valent Al Soto Other [facility] 01-06-2018 influenza virus vaccine, split virus (incl. purified surface antigen) Al Soto Other [facility] [employer] Other 01-06-2018 influenza virus vaccine, unspecified formulation [facility] 06-29-2017 diphtheria, tetanus toxoids and acellular pertussis vaccine, unspecified formulation Al Soto Other [facility] 06-29-2017 pneumococcal conjuga te vaccine, 13 valent Al Soto Other [facility] Payers Date Payer Category Payer Medicare [id number] 1958 Self-pay [id number] 1950 Unknown [id number] 1950 Unknown [id number] 1950 Unknown [id number] [id number] 1950 Unknown [id number] [id number] Self-pay Self Pay [id number] Unknown [id number] [id number] Social History Date Type Detail Facility Unknown if ever smoked [facility] Other Sex Assigned At Sex Assigned At Bir th [facility] Other Start: 05-11-2023 Tobacco smoking status NHIS Never smoked tobacco (finding) [facility] Start: 1950 Sex Assigned At Female F [facility] Evaluation note 02-27-2023 Note Date & Type Note Facility 02-27-2023 Evaluation note Encounter Date Diagnosis Assessment Notes Feb, Medicare annual wellness visit, subsequent (ICD-10 - Z00.00) Personalized health advice was given to the beneficiary including a written plan for screenings discussed and provided. Advanced care planning reviewed and/or information given as requested. Additional counseling was provided here today in regards to, [ ]. The above visit was performed by [ ], under direct supervision of [ ]. Document reviewed and amended by provider signed below. Feb, Primary hypertension (ICD-10 - I10) This patient is instructed to consume a healthy, low-fat, low-salt diet. They are also encouraged to continue exercise to achieve/maintain a normal BMI. Feb, Hypercholesteremia (ICD-10 - E78.00) Instructed on diet and exercise with continued statin therapy.Discussed the beneficial effects of lowering cholesterol in reducing the risk for cerebrovascular and cardiovascular disease. Feb, Other specified hypothyroidism (ICD-10 - E03.8) Feb, Autoimmune thyroiditis (ICD-10 - E06.3) Clinically euthyroid TSH minally elevated, recommend rechecking in 3mo (GEOVANNI) Feb, Screening mammogram for breast cancer (ICD-10 - Z12.31) Instructed patient on monthly SBE and yearly mammograms. Feb, Menopause (ICD-10 - Z78.0) Continue estrogen crm. Healthy diet and exercise. WHIT dawson [facility] Other Evaluation note 02-19-2023 Note Date & Type Note Facility 02-19-2023 Evaluation note Encounter Date Diagnosis Assessment Notes Jan, Primary hypertension (ICD-10 - I10) Jan, Hypercholesteremia (ICD-10 - E78.00) Jan, Other specified hypothyroidism (ICD-10 - E03.8) Jan, Autoimmune thyroiditis (ICD-10 - E06.3) Jan, Vitamin D deficiency (ICD-10 - E55.9) Jan, High risk medication use (ICD-10 - Z79.899) [facility] Other Evaluation note Note Date & Type Note Facility Evaluation note No Information [employer] Other Evaluation note Note Date & Type Note Facility Evaluation note Diagnosis Onset Date Bacterial conjunctivitis of right eye acute [facility] Work Phone: History general Narrative - Reported Note Date & Type Note Facility History general Narrative - Reported Type Medical History hypertension Medical History hypercholesterolemia Surgical History Problem Title : ANTE RIOR CERVICAL DISCECTOMY AND FUSION (ACDF) (78256), Problem Status : Active, Surgical History Problem Title : past surgical history reviewed, Problem Description : past surgical history reviewed, Problem Comment : reviewed - no changes required, Problem Status : Inactive, Surgical History Problem Title : Spin al Fusion - Neck, Problem Status : Active, [facility] Other History general Narrative - Reported Note Date & Type Note Facility History general Narrative - Reported Type Medical History hypertension Medical History hypercholesterolemia Surgical History neck surgery Hospitalization History see surgical history [facility] Other Summary Purpose Family History Relationship Condition Age at Onset Recorded Date/T addy father Unknown Not Specified Unknown Hypertension Unknown Advance Directives Advance Directive Response Recorded Date/ Time Advance Directives No September 27 10:11am Hospital Course Note MR#: [id number] [facility] Pt. Name: Epi Dailey Admitted: 11/13/2018 Discharged: 11/16/2018 Date of : 1950 Physician: Ryan Rehman MD DISCHARGE SUMMARY DIAGNOSES AT ADMISSION: 1. Nei-AA-ehmzdkuai myocardial infarction. 2. Acute congestive heart failure exacerbation. 3. Oropharyngeal candidiasis. DIAGNOSES AT DISCHARGE: 1. Vnc-CE-svdcdpywc myocardial infarction. 2. Acute diastolic congestive heart failure exacerbation, resolved. 3. Oropharyngeal candidiasis, resolved. 4. Questionable pneumonia treated. 5. Hypertension controlled. 6. Hyperlipidemia. 7. Abnormal LFTs, resolved. HOSPITAL COURSE: This is a 68-year-old female, who was recently treated with Bactrim for her urinary tract infection and was also started on antibiotics and steroids for possible pneumonia, was transferred from the [facility] for worsening shortness of breath along with left lower extremity weakness. The patient was started on Zosyn and ciprofloxacin for the last so (more content not included)... Chief Complaint and Reason for Visit Chief Complaint Wellness Rash Reason for Visit Bacterial conjunctiv itis of right eye Additional Source Comments INFORMATION SOURCE (unrecogn ized section and content) DATE CREATED AUTHOR 12/31/2018 [facility] DATE CREATED AUTHOR AUTHOR'S ORGANIZ ATION 03/30/2020 [facility] DATE CREATED AUTHOR AUTHOR'S ORGANIZ ATION 10/29/[address] [facility] DATE CREATED AUTHOR AUTHOR'S ORGANIZ ATION 06/06/2022 [facility] REASON FOR VISIT (unrecogniz ed section and content) [facility] Care Teams (unrecognized sec tion and content) Team Status: Active Member Role Status Dates Al Soto DO Primary Care Provider Active Team Status: Inactive Member Role Status Dates Al Soto DO Attending Provider Active Sta rt: February 27, 2023 End: February 27, 2023 Team Status: Inactive Member Role Status Dates Al Soto DO Primary Care Provider Active Start: May 11, 2023 End: May 11, 2023 PALOMO Shepherd Attending Provider Active Start: April End: May 11, 2023 Goals (unrecognized section and content) Goals may be documented in a n alternate section FOR RECORDS PERTAINING TO PATIENTS WHO ARE OR HAVE BEEN ENROLLED IN A CHEMICAL DEPENDENCY/SUBSTANCEABUSE PROGRAM, SOME INFORMATION MAY BE OMITTED. This clinical summary was aggregated from multiple sources. Caution should be exercised in using it in the provision of clinical care. This summary normalizes information from multiple sources, and as a consequence, information in this document may materially change the coding, format and clinical context of patient data. In addition, data may be omitted in some cases. CLINICAL DECISIONS SHOULD BE BASED ON THE PRIMARY CLINICAL RECORDS. [employer] provides no warranty or guarantee of the accuracy or completeness of information in this document.
== END 2023-05-18 10:51 | disposition home or self-care (01) ==
LOC: MAMMO 10:50
PROVIDERS: PCP Internal Medicine; Visit Provider Internal Medicine
DX: Z12.31 Encounter for screening mammogram for malignant neoplasm of breast (principal); Z78.0 Asymptomatic menopausal state; M85.80 Other specified disorders of bone density and structure, unspecified site
CPT/HCPCS: 77063; 77067; 77080

== ENCOUNTER 2024-03-08 09:49 | Outpatient (OUT) | payer MEDICARE, SELFPAY ==
--- OUTSIDE RECORDS SUMMARY | 2024-03-08 10:04 | XMS_ITS | CCD ---
Author Organization [facility] Care Team Providers Care Insurance Licensing Supervisor Name Role Phone [facility]AM[facility] Primary Care Unavailable CROAK, STEVIE Carbajal Attending Unavailable CROAK, STEVIE Carbajal [...] source) Sulfamethoxazole / Trimethoprim Drug Allergy [facility] Repository (2 sources) patient allergy list reviewed by nurse or physicia Propensity to adverse reactions 06-30-19 Comment:Done [employer] Other (2 sources) Allergies Reconciled Propensity to adverse reactions Unknown [employer] Other (3 sources) Substance with sulfonamide structure and antibacterial mechanism of action (substance) Drug allergy 03-29-19 21 Unknown [employer] Other Medications Current Medications Medication Drug Class(es) [...] daily for 90 days *Pick strength-form from [employer] for eRX* Feb, Active Start: 02-26-2022 take 1 tablet by mouth once da dario Euthyrox 75mcg Euthyrox 75mcg, 1 Tablet daily # 90, 02/26/2022, Ref. x3. Active oral daily for 90 *Pick strength-form from [employer] for eRX* Feb, Active losartan potassium 100 [...] daily for 90 days *Pick strength-form from [employer] for eRX* Feb, Active polymyxin b 11064 unt/ml / trimethoprim 1 mg/ml ophthalmic solution [...] unspecified] Chronic Other aftercare (2 sources) Other [employer]aker (current) drug therapy; Translations: [OTH CARE HOME CURRENT DRUG THERAPY] Onset: 03-01-2022 Episodic Other aftercare (3 sources) Long-term current use of drug therapy; Translations: [Other [employer] (current) drug therapy] Episodic Other injuries and [...] 06-05-2022 TSH 0.299 uIU/mL Critically low 0.358-3.740 [facility] Comment on above: Performed By: #### D ATTSH #### [facility] [address] [place], [place] [address] Dr. Kali Haynes TSH RANGE SEE BELOW Normal [facility] Comment on above: Result Comment: <0.3 4 UIU/ml HYPERTHYROID 0.34-5.60 UIU/ml EUTHYROID >5.60 UIU/ml HYPOTHYROID Performed By: #### D ATTSH #### [facility] [address] [place], [place] [address] Dr. Kali Haynes MG MAMM SCREEN 3D IFEANYI CADon 05-16-2022 MG MAMM SCREEN 3D IFEANYI CAD Patient: EPI DAILEY Exam Date: 05/16/2022 : 1950 Gender:F Ordering : DR AL SOTO D.O. Admission #: [id number] Family : Order #: [id number] CLICK HERE TO VIEW EXAM RADIOLOGY REPORT [...] Treatments None Family Cancers None LOCATION: [facility] BREAST COMPOSITION: Heterogeneously dense,which may obscure [...] M.D. on 05/16/2022 at 14:31 Normal [facility] CBC AUTO DIFFon 02-24-2022 BASO # 0.0 103/ul Normal 0.0-0.1 [facility] Comment on above: Performed By: #### C BC #### [facility] [address] [place] [address] Dr. Kali Haynes Basophils/100 WBC (Bld) 0.5 % Normal 0.2-2.0 [facility] Comment on above: Performed By: #### C BC #### [facility] [address] [place] [address] Dr. Kali Haynes EO # 0.2 103/ul Normal 0.0-0.7 [facility] Comment on above: Performed By: #### C BC #### [facility] [address] [place] [address] Dr. Kali Haynes Eosinophils/100 WBC (Bld) 2.8 % Normal 0.9-7.0 [facility] Comment on above: Performed By: #### C BC #### [facility] [address] [place] [address] Dr. Kali Haynes Erythrocyte distribution width (RBC) [Ratio] 13.9 % Normal 11.0-15.0 [facility] Comment on above: Performed By: #### C BC #### [facility] [address] [place] [address] Dr. Kali Haynes Hematocrit (Bld) [Volume fraction] 43.0 % Normal 36.0-48.0 [facility] Comment on above: Performed By: #### C BC #### [facility] [address] [place] [address] Dr. Kali Haynes Hemoglobin (Bld) [Mass/Vol] 14.5 g/dL Normal 12.0-16.0 [facility] Comment on above: Performed By: #### C BC #### [facility] [address] [place] [address] Dr. Kali Haynes IG # 0.01 10e3/ul Normal 0.00-0.03 [facility] Comment on above: Performed By: #### C BC #### [facility] [address] [place] [address] Dr. Kali Haynes IG % 0.2 % Normal 0.0-0.5 [facility] Comment on above: Performed By: #### C BC #### [facility] [address] [place] [address] Dr. Kali Haynes LYMPH # 3.9 103/ul Critically high 1.2-3.8 [facility] Comment on above: Performed By: #### C BC #### [facility] [address] [place] [address] Dr. Kali Haynes Lymphocytes/100 WBC (Bld) 59.7 % Normal 20.5-60.0 [facility] Comment on above: Performed By: #### C BC #### [facility] [address] [place] [address] Dr. Kali Haynes MANUAL DIFF REQ NO Normal [facility] Comment on above: Performed By: #### C BC #### [facility] [address] [place] [address] Dr. Kali Haynes MCH (RBC) [Entitic mass] 29.3 pg Normal 26.7-34.0 [facility] Comment on above: Performed By: #### C BC #### [facility] [address] [place] [address] Dr. Kali Haynes MCHC (RBC) [Mass/Vol] 33.7 g/dL Normal 29.9-35.2 [facility] Comment on above: Performed By: #### C BC #### [facility] [address] [place] [address] Dr. Kali Haynes MCV (RBC) [Entitic vol] 86.9 fL Normal 81.0-99.0 [facility] Comment on above: Performed By: #### C BC #### [facility] [address] [place] [address] Dr. Kali Hayens MONO # 0.4 103/ul Normal 0.3-0.8 [facility] Comment on above: Performed By: #### C BC #### [facility] [address] [place] [address] Dr. Kali Haynes Monocytes/100 WBC (Bld) 6.5 % Normal 1.7-12.0 [facility] Comment on above: Performed By: #### C BC #### [facility] [address] [place] [address] Dr. Kali Haynes NEUT # 2.0 103/ul Normal 1.4-6.5 [facility] Comment on above: Performed By: #### C BC #### [facility] [address] [place] [address] Dr. Kali Haynes Neutrophils/100 WBC (Bld) 30.3 % Critically low 43.0-75.0 [facility] Comment on above: Performed By: #### C BC #### [facility] [address] [place] [address] Dr. Kali Haynes Platelet mean volume (Bld) [Entitic vol] 11.1 fL Normal 9.5-13.5 [facility] Comment on above: Performed By: #### C BC #### [facility] [address] [place] [address] Dr. Kali Haynes PLT 221 103/ul Normal 150-450 [facility] Comment on above: Performed By: #### C BC #### [facility] [address] [place] [address] Dr. Kali Haynes RBC 4.95 106/ul Normal 4.20-5.40 [facility] Comment on above: Performed By: #### C BC #### [facility] [address] [place] [address] Dr. Kali Haynes WBC 6.5 103/ul Normal 4.0-11.0 [facility] Comment on above: Performed By: #### C BC #### [facility] [address] [place] [address] Dr. Kali Haynes LIPID PROFILEon 02-24-2022 CHOL-HDL RATIO NORM SEE BELOW Normal [facility] Comment on above: Result Comment: 3.3 - 4.4 LOW RISK 4.4 - 7.1 AVERAGE RISK 7.1 - 11.0 MODERATE RISK >11.0 HIGH RISK Performed By: #### T SH, BMP, LIPID, ALT #### [facility] [address] [place] [address] [address] Kali Haynes Cholesterol [Mass/Vol] 151 mg/dL Normal <=200 [facility] Comment on above: Performed By: #### T SH, BMP, LIPID, ALT #### [facility] [address] [place] [address] [address] Kali Haynes Cholesterol in HDL [Mass/Vol] 39 mg/dL Critically low 40-60 [facility] Comment on above: Performed By: #### T SH, BMP, LIPID, ALT #### [facility] [address] [place] [address] [address] Kali Haynes Cholesterol in LDL [Mass/Vol] 85.6 mg/dL Normal [facility] Comment on above: Performed By: #### T SH, BMP, LIPID, ALT #### [facility] [address] [place] [address] [address] Kali Haynes Cholesterol.total/C holesterol in HDL [Mass ratio] 3.9 {ratio} Normal [facility] Comment on above: Performed By: #### T SH, BMP, LIPID, ALT #### [facility] [address] [place] [address] [address] Kali Haynes HDL NORMAL > or = 60 mg/dl - LO W CARDIOVASCULAR RISK <40 mg/dl - HIGH CARDIOVASCULAR RISK Normal [facility] Comment on above: Performed By: #### T SH, BMP, LIPID, ALT #### [facility] [address] [place] [address] [address] Kali Haynes LDL CALC NORMAL SEE BELOW Normal [facility] Comment on above: Result Comment: <100 mg/dl OPTIMAL 100 - 129 mg/dl NEAR OR ABOVE OPTIMAL 130 - 159 mg/dl BORDERLINE HIGH 160 - 189 mg/dl HIGH >190 mg/dl VERY HIGH Performed By: #### T SH, BMP, LIPID, ALT #### [facility] [address] [place] [address] [address] Kali Haynes Triglyceride [Mass/Vol] 132 mg/dL Normal <=150 [facility] Comment on above: Performed By: #### T SH, BMP, LIPID, ALT #### [facility] [address] [place] [address] [address] Kali Haynes VLDL CALC 26.4 mg/dL Normal [facility] Comment on above: Performed By: #### T SH, BMP, LIPID, ALT #### [facility] [address] [place] [address] Dr. Kali Haynes PROF CHEM 8 (BAS METB)on Anion gap [Moles/Vol] 12.5 mmol/L Normal [facility] Comment on above: Performed By: #### T SH, BMP, LIPID, ALT #### [facility] [address] [place] [address] Dr. Kali Haynes Calcium [Mass/Vol] 9.4 mg/dL Normal 8.5-10.1 [facility] Comment on above: Performed By: #### T SH, BMP, LIPID, ALT #### [facility] [address] [place] [address] Dr. Kali Haynes Chloride [Moles/Vol] 103 mmol/L Normal 98-107 [facility] Comment on above: Performed By: #### T SH, BMP, LIPID, ALT #### [facility] [address] [place] [address] [address] Kail Haynes CO2 [Moles/Vol] 26.3 mmol/L Normal 21.0-32.0 [facility] [place] [facility] Comment on above: Performed By: #### T SH, BMP, LIPID, ALT #### [facility] [address] [place] [address] [address] Kali Haynes Creatinine [Mass/Vol] 0.82 mg/dL Normal 0.55-1.02 [facility] Comment on above: Performed By: #### T SH, BMP, LIPID, ALT #### [facility] [address] [place] [address] Dr. Kali Haynes EGFR-AF CITIZ[place] >60 Normal >=60 [facility] Comment on above: Performed By: #### T SH, BMP, LIPID, ALT #### [facility] [address] [place] [address] [address] Kali Haynes EGFR-NON AF CITIZEN [place] >60 Normal >=60 [facility] Comment on above: Performed By: #### T SH, BMP, LIPID, ALT #### [facility] [address] [place] [address] [address] Kali Haynes Glucose [Mass/Vol] 110 mg/dL Critically high 74-106 [facility] Comment on above: Performed By: #### T SH, BMP, LIPID, ALT #### [facility] [address] [place] [address] Dr. Kali Haynes Potassium [Moles/Vol] 3.8 mmol/L Normal 3.5-5.1 [facility] Comment on above: Performed By: #### T SH, BMP, LIPID, ALT #### [facility] [address] [place] [address] Dr. Kali Haynes Sodium [Moles/Vol] 138 mmol/L Normal 136-145 [facility] Comment on above: Performed By: #### T SH, BMP, LIPID, ALT #### [facility] [address] [place] [address] Dr. Kali Haynes Urea nitrogen [Mass/Vol] 17.0 mg/dL Normal 7.0-18.0 [facility] Comment on above: Performed By: #### T SH, BMP, LIPID, ALT #### [facility] [address] [place] [address] Dr. Kali Haynes Urea nitrogen/Creatinine [Mass ratio] 20.7 mg/mg Normal [facility] Comment on above: Performed By: #### T SH, BMP, LIPID, ALT #### [facility] [address] [place] [address] Dr. Kali Haynes SGPTon 02-24-2022 ALT [Catalytic activity/Vol] 36 U/L Normal 14-59 [facility] Comment on above: Performed By: #### T SH, BMP, LIPID, ALT #### [facility] [address] [place] [address] Dr. Kali Haynes TSHon 02-24-2022 TSH 4.788 uIU/mL Critically high 0.358-3.740 [facility] Comment on above: Performed By: #### T SH, BMP, LIPID, ALT #### [facility] [address] [place] [address] [address] Kali Haynes CBC AUTO DIFFon 08-21-2021 BASO # 0.0 103/ul Normal 0.0-0.1 [facility] Comment on above: Performed By: #### C BC #### [facility] [address] [place] [address] [address] Kali Haynes Basophils/100 WBC (Bld) 0.5 % Normal 0.2-2.0 [facility] Comment on above: Performed By: #### C BC #### [facility] [address] [place] [address] [address] Kali Haynes EO # 0.2 103/ul Normal 0.0-0.7 [facility] Comment on above: Performed By: #### C BC #### [facility] [address] [place] [address] [address] Kali Haynes Eosinophils/100 WBC (Bld) 2.6 % Normal 0.9-7.0 [facility] Comment on above: Performed By: #### C BC #### [facility] [address] [place] [address] [address] Kali Haynes Erythrocyte distribution width (RBC) [Ratio] 14.4 % Normal 11.0-15.0 [facility] Comment on above: Performed By: #### C BC #### [facility] [address] [place] [address] [address] Kali Haynes Hematocrit (Bld) [Volume fraction] 40.4 % Normal 36.0-48.0 [facility] Comment on above: Performed By: #### C BC #### [facility] [address] [place] [address] [address] Kali Haynes Hemoglobin (Bld) [Mass/Vol] 13.3 g/dL Normal 12.0-16.0 [facility] Comment on above: Performed By: #### C BC #### [facility] [address] [place] [address] [address] Kali Haynes IG # 0.01 10e3/ul Normal 0.00-0.03 [facility] Comment on above: Performed By: #### C BC #### [facility] [address] [place] [address] Dr. Kali Haynes IG % 0.2 % Normal 0.0-0.5 [facility] Comment on above: Performed By: #### C BC #### [facility] [address] [place] [address] Dr. Kali Haynes LYMPH # 3.0 103/ul Normal 1.2-3.8 [facility] Comment on above: Performed By: #### C BC #### [facility] [address] [place] [address] Dr. Kali Haynes Lymphocytes/100 WBC (Bld) 48.6 % Normal 20.5-60.0 [facility] Comment on above: Performed By: #### C BC #### [facility] [address] [place] [address] Dr. Kali Haynes MANUAL DIFF REQ NO Normal [facility] Comment on above: Performed By: #### C BC #### [facility] [address] [place] [address] Dr. Kali Haynes MCH (RBC) [Entitic mass] 29.0 pg Normal 26.7-34.0 [facility] Comment on above: Performed By: #### C BC #### [facility] [address] [place] [address] Dr. Kali Haynes MCHC (RBC) [Mass/Vol] 32.9 g/dL Normal 29.9-35.2 [facility] Comment on above: Performed By: #### C BC #### [facility] [address] [place] [address] Dr. Kali Haynes MCV (RBC) [Entitic vol] 88.0 fL Normal 81.0-99.0 [facility] Comment on above: Performed By: #### C BC #### [facility] [address] [place] [address] Dr. Kali Haynes MONO # 0.5 103/ul Normal 0.3-0.8 [facility] Comment on above: Performed By: #### C BC #### [facility] [address] [place] [address] Dr. Kali Haynes Monocytes/100 WBC (Bld) 7.4 % Normal 1.7-12.0 [facility] Comment on above: Performed By: #### C BC #### [facility] [address] [place] [address] [address] Kali Haynes NEUT # 2.5 103/ul Normal 1.4-6.5 [facility] Comment on above: Performed By: #### C BC #### [facility] [address] [place] [address] Dr. Kali Haynes Neutrophils/100 WBC (Bld) 40.7 % Critically low 43.0-75.0 [facility] Comment on above: Performed By: #### C BC #### [facility] [address] [place] [address] Dr. Kali Haynes Platelet mean volume (Bld) [Entitic vol] 11.3 fL Normal 9.5-13.5 [facility] Comment on above: Performed By: #### C BC #### [facility] [address] [place] [address] Dr. Kali Haynes PLT 218 103/ul Normal 150-450 [facility] Comment on above: Performed By: #### C BC #### [facility] [address] [place] [address] Dr. Kali Haynes RBC 4.59 106/ul Normal 4.20-5.40 [facility] Comment on above: Performed By: #### C BC #### [facility] [address] [place] [address] Dr. Kali Haynes WBC 6.2 103/ul Normal 4.0-11.0 [facility] Comment on above: Performed By: #### C BC #### [facility] [address] [place] [address] Dr. Kali Haynes Basic Metab w/rfx MGon 10-12 (cont.) Normal [facility] Comment on above: Result Comment: Aver age GFR for 60-69 years old: 85 mL/min/1.73sq m Chronic Kidney Disease: <60 mL/min/1.73sq m Kidney failure: <15 mL/min/1.73sq m eGFR calculated using average adult body mass. Additional eGFR calculator available at: http://www.Axial.Food.ee/multiple_crcl_2012.htm Performed By: #### C DP, BMPX #### [place] [address] [employer] Operator: Antonio Vázquez MD Anion gap [Moles/Vol] 11 mmol/L Normal 9-17 [facility] Comment on above: Performed By: #### C DP, BMPX #### [place] [address] [employer] M[employer] Operator: Antonio Vázquez MD Calcium [Mass/Vol] 9.0 mg/dL Normal 8.6-10.4 [facility] Comment on above: Performed By: #### C DP, BMPX #### [place] [address] [employer] M[employer] Operator: Antonio Vázquez MD Chloride [Moles/Vol] 99 mmol/L Normal 98-107 [facility] Comment on above: Performed By: #### C DP, BMPX #### [place] [address] [employer] Operator: Antonio Vázquez MD CO2 [Moles/Vol] 21 mmol/L Normal 20-31 [facility] Comment on above: Performed By: #### C DP, BMPX #### [place] [address] [employer] Operator: Antonio Vázquez MD Creatinine [Mass/Vol] 0.63 mg/dL Normal 0.50-0.90 [facility] Comment on above: Performed By: #### C DP, BMPX #### [address] [address] [employer] Operator: Antonio Vázquez MD GFR, Amer >60 Normal >60 [facility] Comment on above: Performed By: #### C DP, BMPX #### [place] [address] [employer] Operator: Antonio Vázquez MD GFR,non Amer >60 Normal >60 [facility] Comment on above: Performed By: #### C DP, BMPX #### [place] [address] [employer] Operator: Antonio Vázquez MD Glucose [Mass/Vol] 132 mg/dL High 70-99 [facility] Comment on above: Performed By: #### C DP, BMPX #### [place] [address] [employer] Operator: Antonio Vázquez MD Potassium [Moles/Vol] 3.7 mmol/L Normal 3.7-5.3 [facility] Comment on above: Performed By: #### C DP, BMPX #### [place] [address] [employer] Operator: Antonio Vázquez MD Sodium [Moles/Vol] 131 mmol/L Low 135-144 [facility] Comment on above: Performed By: #### C DP, BMPX #### [place] [address] [employer] Operator: Antonio Vázquez MD Urea nitrogen [Mass/Vol] 13 mg/dL Normal 8-23 [facility] Comment on above: Performed By: #### C DP, BMPX #### [place] [address] Gl[employer] Mounter Operator: Antonio Vázquez MD BUN/CRE Ratio NOT REPORTED Normal 9-20 [facility] Comment on above: Performed By: #### C DP, BMPX #### [place] [address] [employer] Mounter Operator: Antonio Vázquez MD Staging: NOT REPORTED Normal [facility] Comment on above: Performed By: #### C DP, BMPX #### [place] [address] [employer] Mounter Operator: Antonio Vázquez MD CBC with Diffon 10-12-2020 Abs. Basophil 0.10 k/uL Normal 0.0-0.2 [facility] Comment on above: Performed By: #### C DP, BMPX #### [place] [address] [employer] Mounter Operator: Antonio Vázquez MD Abs.Neutrophil (Seg) 6.20 k/uL Normal 1.8-7.7 [facility] Comment on above: Performed By: #### C DP, BMPX #### [place] [address] [employer] Mounter Operator: Antonio Vázquez MD Basophils/100 WBC (Bld) 1 % Normal 0-2 [facility] Comment on above: Performed By: #### C DP, BMPX #### [place] [address] [employer] Mounter Operator: Antonio Vázquez MD Eosinophils (Bld) [#/Vol] 0.00 10*3/uL Normal 0.0-0.4 [facility] Comment on above: Performed By: #### C DP, BMPX #### [facility] [id number] [place] [address] Gl[employer] Mounter Operator: Antonio Vázquez MD Eosinophils/100 WBC (Bld) 0 % Low 1-4 [facility] Comment on above: Performed By: #### C DP, BMPX #### [place] [address] [employer] Mounter Operator: Antonio Vázquez MD Erythrocyte distribution width (RBC) [Ratio] 14.0 % Normal 12.5-15.4 [facility] Comment on above: Performed By: #### C DP, BMPX #### [place] [address] [employer] Mounter Operator: Antonio Vázquez MD Hematocrit (Bld) [Volume fraction] 34.5 % Low 36-46 [facility] Comment on above: Performed By: #### C DP, BMPX #### [place] [address] [employer] Mounter Operator: Antonio Vázquez MD Hemoglobin (Bld) [Mass/Vol] 11.3 g/dL Low 12.0-16.0 [facility] Comment on above: Performed By: #### C DP, BMPX #### [place] [address] [employer] Mounter Operator: Antonio Vázquez MD Lymphocytes (Bld) [#/Vol] 4.10 10*3/uL Normal 1.0-4.8 [facility] Comment on above: Performed By: #### C DP, BMPX #### [place] [address] [employer] Mounter Operator: Antonio Vázquez MD Lymphocytes/100 WBC (Bld) 38 % Normal 24-44 [facility] Comment on above: Performed By: #### C DP, BMPX #### [place] [address] [employer] Mounter Operator: Antonio Vázquez MD MCH (RBC) [Entitic mass] 29.7 pg Normal 26-34 [facility] Comment on above: Performed By: #### C DP, BMPX #### [place] [address] [employer] Mounter Operator: Antonio Vázquez MD MCHC (RBC) [Mass/Vol] 32.9 g/dL Normal 31-37 [facility] Comment on above: Performed By: #### C DP, BMPX #### [place] [address] [employer] Mounter Operator: Antonio Vázquez MD MCV (RBC) [Entitic vol] 90.4 fL Normal 80-100 [facility] Comment on above: Performed By: #### C DP, BMPX #### [place] [address] [employer] Mounter Operator: Antonio Vázquez MD Monocytes (Bld) [#/Vol] 0.50 10*3/uL Normal 0.1-1.2 [facility] Comment on above: Performed By: #### C DP, BMPX #### [place] [address] [employer] Mounter Operator: Antonio Vázquez MD Monocytes/100 WBC (Bld) 5 % Normal 2-11 [facility] Comment on above: Performed By: #### C DP, BMPX #### [place] [address] [employer] Mounter Operator: Antonio Vázquez MD Neutrophil (Seg) 56 % Normal 36-66 [facility] Comment on above: Performed By: #### C DP, BMPX #### [place] [address] [employer] Mounter Operator: Antonio Vázquez MD Platelet mean volume (Bld) [Entitic vol] 9.6 fL Normal 6.0-12.0 [facility] Comment on above: Performed By: #### C DP, BMPX #### [place] [address] Gl[employer] Mounter Operator: Antonio Vázquez MD Platelets (Bld) [#/Vol] 172 10*3/uL Normal 140-450 [facility] Comment on above: Performed By: #### C DP, BMPX #### [place] [address] Glue Mounter Operator: Antonio Vázquez MD RBC (Bld) [#/Vol] 3.81 10*6/uL Low 4.0-5.2 [facility] Comment on above: Performed By: #### C DP, BMPX #### [place] [address] Glue Mounter Operator: Antonio Vázquez MD WBC (Bld) [#/Vol] 11.0 10*3/uL Normal 3.5-11.0 [facility] Comment on above: Performed By: #### C DP, BMPX #### [place] [address] Glue Mounter Operator: Antonio Vázquez MD Abs.Imm.Granulocyte NOT REPORTED Normal 0.00-0.30 [facility] Comment on above: Performed By: #### C DP, BMPX #### [place] [address] Glue Mounter Operator: Antonio Vázquez MD Auto Diff Performed NOT REPORTED Normal [facility] Comment on above: Performed By: #### C DP, BMPX #### [place] [address] Glue Mounter Operator: Antonio Vázquez MD Immature Granulocyte NOT REPORTED Normal 0 [facility] Comment on above: Performed By: #### C DP, BMPX #### [place] [address] Glue Mounter Operator: Antonio Vázquez MD NRBC Automated NOT REPORTED Normal [facility] Comment on above: Performed By: #### C DP, BMPX #### [place] [address] Glue Mounter Operator: Antonio Vázquez MD Platelet Estimate NOT REPORTED Normal [facility] Comment on above: Performed By: #### C DP, BMPX #### [place] [address] Glue Mounter Operator: Antonio Vázquez MD RBC morphology finding Nom (Bld) NOT REPORTED Normal [facility] Comment on above: Performed By: #### C DP, BMPX #### [place] [address] Glue Mounter Operator: Antonio Vázquez MD WBC Morphology NOT REPORTED Normal [facility] Comment on above: Performed By: #### C DP, BMPX #### [place] [address] Glue Mounter Operator: Antonio Vázquez MD OPERATIVE REPORTon OPERATIVE REPORT [address] [address] OPERATIVE REPORT PATIENT NAME: EPI DAILEY : 1950 MED REC NO: [id number] ROOM: [facility] ACCOUNT NO: [id number] ADMIT DATE: 10/11/2020 PROVIDER: Stevie Hopper DATE [...] fashion in the dorsal lithotomy position in [facility], confirmed to be neutrally positioned by myself. [...] vaginal mucosa was then closed in a sfrfmu-ci-crpnf mucosal-mucosal fashion, incorporating the angles and uterosacral [...] time with the Awan catheter. Cystourethroscopy with 17-Italian 30-degree cystourethroscope confirmed bilateral ureteral patency and Pyridium-stained urine out of the ureters with the Lasix challenge. There was no intravesical or intraurethral passage of sling trocars. The sling with sheath was then attached to the trocars (more content not included)... Normal [facility] Surgical Pathologyon 021 Surgical Pathology (NOTE) -- Diagnosis -- [...] second tube and ovary 4 grams. Serosa: [place]-ho. Cervix: 4.3 x 3.5 x 3.4 cm, [...] cm in aggregate. No masses are seen. Rv Technician sections 1cs. tm Microscopic Description 1, 2. Microscopic examination performed. SURGICAL PATHOLOGY CONSULTATION Patient Name: EPI DAILEY [facility] Rec: [id number] Path Number: [id number] [facility] CONSULTING PATHOLOGISTS [facility] ANATOMIC PATHOLOGY [address] [place] [id number] [facility] Comment on above: Performed By: #### P PPVS #### [address] [address] Glue Mounter Operator: Matthew España MD Type + Screenon 10-11-2020 Type + Screen Sample Expiration 10/14/2020,2359 Arm Band Number BE [id number] ABO/Rh(D) B POSITIVE Antibody Screen NEGATIVE [facility] Comment on above: Performed By: #### T YS #### [address] [id number] Glue Mounter Operator: Antonio Vázquez MD Auth for Release of Medical Recordson 03-30-2020 Auth for Release of Medical Records [id number] 0CD:127 [facility] Auth for Release of Medical Records [id number] 0CD:127 [facility] Retail - Clinical Noteon Retail - Clinical Note [id number]#1.00 CD:127 Normal [facility] BASIC METABOLIC PANELon 08-2 Calcium [Mass/Vol] 9.4 mg/dL Normal 8.6-10.3 [facility] Comment on above: Order Comment: No: D o not add to previous draw Performed By: #### 0 0071, 35159, 24948 #### [facility] [address] [place] [address], [place] Chloride [Moles/Vol] 102 mmol/L Normal 98-107 [facility] Comment on above: Order Comment: No: D o not add to previous draw Performed By: #### 0 0071, 68547, 36847 #### [facility] [address] [place] [address], [place] CO2 [Moles/Vol] 27 mmol/L Normal 21-31 [facility] Comment on above: Order Comment: No: D o not add to previous draw Performed By: #### 0 0071, 37552, 36079 #### [facility] [address] [place] [address], [place] Creatinine [Mass/Vol] 0.63 mg/dL Normal 0.60-1.20 [facility] Comment on above: Order Comment: No: D o not add to previous draw Performed By: #### 0 0071, 27488, 98365 #### [facility] [address] [place] [address], [place] GFR/1.73 sq M predicted among blacks MDRD (S/P/Bld) [Vol rate/Area] mL/min/{1.73_m2} Normal >60 [facility] Comment on above: Order Comment: No: D o not add to previous draw Performed By: #### 0 0071, 41643, 13121 #### [facility] [address] [place] [address], [place] GFR/1.73 sq M predicted among non-blacks MDRD (S/P/Bld) [Vol rate/Area] mL/min/{1.73_m2} Normal >60 [facility] Comment on above: Order Comment: No: D o not add to previous draw Performed By: #### 0 0071, 36660, 21043 #### [facility] [address] [place] [address], [place] Glucose [Mass/Vol] 129 mg/dL High 70-100 [facility] Comment on above: Order Comment: No: D o not add to previous draw Performed By: #### 0 0071, 51553, 05051 #### [facility] [address] [place] [address], [facility] Potassium [Moles/Vol] 3.2 mmol/L Low 3.5-5.1 [facility] Comment on above: Order Comment: No: D o not add to previous draw Performed By: #### 0 0071, 44516, 78142 #### [facility] [address] [place] [address], [place] Sodium [Moles/Vol] 137 mmol/L Normal 136-145 [facility] Comment on above: Order Comment: No: D o not add to previous draw Performed By: #### 0 0071, 15562, 31856 #### [facility] [address] [place] [address], [place] Urea nitrogen [Mass/Vol] 11 mg/dL Normal 7-25 [facility] Comment on above: Order Comment: No: D o not add to previous draw Performed By: #### 0 0071, 10122, 55570 #### [facility] [address] [place] [address], [facility] CBC COMPLETE BLOOD COUNTon 0 11-16-2018 Erythrocyte distribution width (RBC) [Ratio] 15.2 % High 11.5-15.0 [facility] Comment on above: Order Comment: No: D o not add to previous draw Performed By: #### 0 0071, 40788, 16752 #### [facility] [address] [place] [address], [facility] Hematocrit (Bld) [Volume fraction] 37.7 % Normal 36.0-45.0 [facility] Comment on above: Order Comment: No: D o not add to previous draw Performed By: #### 0 0071, 01194, 55991 #### [facility] [address] [place] [address], [facility] Hemoglobin (Bld) [Mass/Vol] 12.7 g/dL Normal 12.0-15.0 [facility] Comment on above: Order Comment: No: D o not add to previous draw Performed By: #### 0 0071, 22266, 66496 #### [facility] [address] [place] [address], [facility] MCH (RBC) [Entitic mass] 28.7 pg Normal 27.0-33.0 [facility] Comment on above: Order Comment: No: D o not add to previous draw Performed By: #### 0 0071, 33589, 86332 #### [facility] [address] [place] [address], [facility] MCHC (RBC) [Mass/Vol] 33.7 g/dL Normal 32.0-35.0 [facility] Comment on above: Order Comment: No: D o not add to previous draw Performed By: #### 0 0071, 38417, 69640 #### [facility] [address] [place] [address], [place] MCV (RBC) [Entitic vol] 85.1 fL Normal 82.0-98.0 [facility] Comment on above: Order Comment: No: D o not add to previous draw Performed By: #### 0 0071, 57454, 60639 #### [facility] [address] [place] [address], [place] Nucleated RBC/100 WBC (Bld) [Ratio] 0 % Normal 0-0 [facility] Comment on above: Order Comment: No: D o not add to previous draw Performed By: #### 0 0071, 50046, 35259 #### [facility] [address] [facility] [place] [address], [facility] PLAT CNT 237 10*3/uL Normal 150-400 [facility] Comment on above: Order Comment: No: D o not add to previous draw Performed By: #### 0 0071, 12578, 87479 #### [facility] [address] [place] [address], [facility] RBC (Bld) [#/Vol] 4.43 10*6/uL Normal 3.80-5.00 [facility] Comment on above: Order Comment: No: D o not add to previous draw Performed By: #### 0 0071, 73277, 86846 #### [facility] [address] [facility] [place] [address], [facility] WBC (Bld) [#/Vol] 10.34 10*3/uL Normal 4.00-10.60 [facility] Comment on above: Order Comment: No: D o not add to previous draw Performed By: #### 0 0071, 87290, 77615 #### [facility] [address] [facility]. [address] Cardiovascular Lab Reporton 11-16-2018 Cardiovascular Lab Report [facility] Patient Name: [facility] Epi MR #: [id number] Department of Physician: Isaura Ching M.D. Division of Service Date: 11/15/2018 Cardiology Birthdate: 1950 Adult Cardiovascular Room #: 3AB [id number] [place] [address] Cardiovascular Laboratory Report FINAL IMPRESSIONS: 1. Mild [...] is most consistent with a type 2 kzc-TP-smhhvzznn myocardial infarction/supply-jim nd mismatch. This does not represent an acute coronary syndrome and the patient does not require dual antiplatelet therapy. 2. Aggressive cardiovascular risk factor modification. 3. Optimization of medical management; given plaque disease, aspirin, eqqvonii-mu-ejdw intensity statin therapy, a beta mar. If [...] right internal jugular vein was obtained. A 6-Italian 11 cm sheath was inserted without difficulty. [...] to access the right radial artery. A 6-Italian Glidesheath was inserted without difficulty. Bilateral selective [...] A Baltazar Camilo M.D. Date Dict: 11/15/2018/11:30 Tressa/Baltazar Camilo M.D. Date Trans: 11/16/2018 09:01 Tressa/alisa [id number] Normal [facility] LIVER BATTERYon 11-16-2018 Albumin [Mass/Vol] 3.6 g/dL Normal 3.5-5.7 [facility]: Order Comment: No: D o not add to previous draw Performed By: #### 0 0071, 00148, 31435 #### [facility] [address] [place] [address], [place] ALKALINE PHOSPH 54 IU/L Normal 34-104 [facility] Comment on above: Order Comment: No: D o not add to previous draw Performed By: #### 0 0071, 65029, 70125 #### [facility] [address] [place] [address], [place] ALT [Catalytic activity/Vol] 63 U/L High 7-52 [facility] Comment on above: Order Comment: No: D o not add to previous draw Performed By: #### 0 0071, 00650, 71090 #### [facility] [address] [place] [address], [place] AST [Catalytic activity/Vol] 19 U/L Normal 13-39 [facility] Comment on above: Order Comment: No: D o not add to previous draw Performed By: #### 0 0071, 71808, 87957 #### [facility] [address] [place] [address], [place] Bilirubin [Mass/Vol] 0.5 mg/dL Normal 0.3-1.0 [facility] Comment on above: Order Comment: No: D o not add to previous draw Performed By: #### 0 0071, 43434, 98409 #### [facility] [address] [place] [address], [place] Bilirubin.direct [Mass/Vol] 0.1 mg/dL Normal 0.0-0.2 [facility] Comment on above: Order Comment: No: D o not add to previous draw Performed By: #### 0 0071, 28531, 71079 #### [facility] [address] [place] [address], [place] Protein [Mass/Vol] 6.5 g/dL Normal 6.0-8.3 [facility] Comment on above: Order Comment: No: D o not add to previous draw Performed By: #### 0 0071, 25954, 88659 #### [facility] [address] [place] [address], [facility] MAGNESIUM BLOODon 11-16-2018 Magnesium [Mass/Vol] 1.8 mg/dL Low 1.9-2.7 [facility] Comment on above: Order Comment: No: D o not add to previous draw Performed By: #### 0 0071, 42651, 95284 #### [facility] [address] [place] [address], [facility] PHOSPHORUS BLOODon 9 Phosphate [Mass/Vol] 3.1 mg/dL Normal 2.5-5.0 [facility] Comment on above: Order Comment: No: D o not add to previous draw Performed By: #### 0 0071, 30129, 99071 #### [facility] [address] [place] [address], [facility] BASIC METABOLIC PANELon 10-22 Calcium [Mass/Vol] 9.0 mg/dL Normal 8.6-10.3 [facility] Comment on above: Order Comment: No: D o not add to previous draw Performed By: #### 0 0071, 21257, 21182 #### [facility] [address] [place] [address], [facility] Chloride [Moles/Vol] 103 mmol/L Normal 98-107 [facility] Comment on above: Order Comment: No: D o not add to previous draw Performed By: #### 0 0071, 38322, 36249 #### [facility] [address] [place] [address], [place] CO2 [Moles/Vol] 25 mmol/L Normal 21-31 [facility] Comment on above: Order Comment: No: D o not add to previous draw Performed By: #### 0 0071, 31167, 76520 #### [facility] [address] [place] [address], [place] Creatinine [Mass/Vol] 0.65 mg/dL Normal 0.60-1.20 [facility] Comment on above: Order Comment: No: D o not add to previous draw Performed By: #### 0 0071, 94442, 71767 #### [facility] [address] [place] [address], [place] GFR/1.73 sq M predicted among blacks MDRD (S/P/Bld) [Vol rate/Area] mL/min/{1.73_m2} Normal >60 [facility] Comment on above: Order Comment: No: D o not add to previous draw Performed By: #### 0 0071, 26097, 59748 #### [facility] [address] [place] [address], [place] GFR/1.73 sq M predicted among non-blacks MDRD (S/P/Bld) [Vol rate/Area] mL/min/{1.73_m2} Normal >60 [facility] Comment on above: Order Comment: No: D o not add to previous draw Performed By: #### 0 0071, 91273, 63518 #### [facility] [address] [place] [address], [place] Glucose [Mass/Vol] 192 mg/dL High 70-100 [facility] Comment on above: Order Comment: No: D o not add to previous draw Performed By: #### 0 0071, 41140, 82679 #### [facility] [address] [place] [address], [place] Potassium [Moles/Vol] 3.0 mmol/L Low 3.5-5.1 [facility] Comment on above: Order Comment: No: D o not add to previous draw Performed By: #### 0 0071, 07259, 31350 #### [facility] [address] [place] [address], [place] Sodium [Moles/Vol] 138 mmol/L Normal 136-145 [facility] Comment on above: Order Comment: No: D o not add to previous draw Performed By: #### 0 0071, 17719, 92472 #### [facility] [address] [place] [address], [place] Urea nitrogen [Mass/Vol] 10 mg/dL Normal 7-25 [facility] Comment on above: Order Comment: No: D o not add to previous draw Performed By: #### 0 0071, 79493, 95918 #### [facility] [address] [place] [address], [place] LIVER BATTERYon 11-15-2018 Albumin [Mass/Vol] 3.3 g/dL Low 3.5-5.7 [facility] Comment on above: Order Comment: No: D o not add to previous draw Performed By: #### 0 0071, 54335, 88085 #### [facility] [address] [place] [address], [place] ALKALINE PHOSPH 51 IU/L Normal 34-104 [facility] Comment on above: Order Comment: No: D o not add to previous draw Performed By: #### 0 0071, 06705, 87587 #### [facility] [address] [place] [address], [place] ALT [Catalytic activity/Vol] 70 U/L High 7-52 [facility] Comment on above: Order Comment: No: D o not add to previous draw Performed By: #### 0 0071, 84233, 94378 #### [facility] [address] [place] [address], [place] AST [Catalytic activity/Vol] 22 U/L Normal 13-39 [facility] Comment on above: Order Comment: No: D o not add to previous draw Performed By: #### 0 0071, 56521, 58527 #### [facility] [address] [place] [address], [place] Bilirubin [Mass/Vol] 0.4 mg/dL Normal 0.3-1.0 [facility] Comment on above: Order Comment: No: D o not add to previous draw Performed By: #### 0 0071, 29980, 17757 #### [facility] [address] Bilirubin.direct [Mass/Vol] 0.1 mg/dL Normal 0.0-0.2 [facility] Comment on above: Order Comment: No: D o not add to previous draw Performed By: #### 0 0071, 53316, 91556 #### [facility] [address] [facility]. [address] Protein [Mass/Vol] 6.2 g/dL Normal 6.0-8.3 [facility] Comment on above: Order Comment: No: D o not add to previous draw Performed By: #### 0 0071, 27293, 91312 #### [facility] [address] UFH HEPARIN ASSAYon 11-16-19 19 UNFRACTIONATED HEPARIN 0.71 IU/mL High 0.30-0.70 [facility] Comment on above: Result Comment: [place] roxaban and Apixaban will interfere with the anti Xa assay used to monitor UFH and LMWH. Performed By: #### 3 0965 #### [facility] [address] BASIC METABOLIC PANELon 10-22 Calcium [Mass/Vol] 8.9 mg/dL Normal 8.6-10.3 [facility] Comment on above: Order Comment: No: D o not add to previous draw Criteria for reflexing a culture was not met. Please call the lab at [phone] within 24 hours of collection time if culture is needed Performed By: #### 3 0965 #### [facility] [address] Chloride [Moles/Vol] 105 mmol/L Normal 98-107 [facility] Comment on above: Order Comment: No: D o not add to previous draw Criteria for reflexing a culture was not met. Please call the lab at [phone] within 24 hours of collection time if culture is needed Performed By: #### 3 0965 #### [facility] [address] [place] [address], [facility] CO2 [Moles/Vol] 25 mmol/L Normal 21-31 [facility] Comment on above: Order Comment: No: D o not add to previous draw Criteria for reflexing a culture was not met. Please call the lab at [phone] within 24 hours of collection time if culture is needed Performed By: #### 3 0965 #### [facility] [address] [place] [address], [facility] Creatinine [Mass/Vol] 0.64 mg/dL Normal 0.60-1.20 [facility] Comment on above: Order Comment: No: D o not add to previous draw Criteria for reflexing a culture was not met. Please call the lab at [phone] within 24 hours of collection time if culture is needed Performed By: #### 3 0965 #### [facility] [address] [facility] [place] [place] [address], [facility] GFR/1.73 sq M predicted among blacks MDRD (S/P/Bld) [Vol rate/Area] mL/min/{1.73_m2} Normal >60 [facility] Comment on above: Order Comment: No: D o not add to previous draw Criteria for reflexing a culture was not met. Please call the lab at [phone] within 24 hours of collection time if culture is needed Performed By: #### 3 0965 #### [facility] [address] [facility] [place] [address], [facility] GFR/1.73 sq M predicted among non-blacks MDRD (S/P/Bld) [Vol rate/Area] mL/min/{1.73_m2} Normal >60 [facility] Comment on above: Order Comment: No: D o not add to previous draw Criteria for reflexing a culture was not met. Please call the lab at [phone] within 24 hours of collection time if culture is needed Performed By: #### 3 0965 #### [facility] [address] [facility] [place] [address], [facility] Glucose [Mass/Vol] 129 mg/dL High 70-100 [facility] Comment on above: Order Comment: No: D o not add to previous draw Criteria for reflexing a culture was not met. Please call the lab at [phone] within 24 hours of collection time if culture is needed Performed By: #### 3 0965 #### [facility] [address] [place] [address], [facility] Potassium [Moles/Vol] 3.6 mmol/L Normal 3.5-5.1 [facility] Comment on above: Order Comment: No: D o not add to previous draw Criteria for reflexing a culture was not met. Please call the lab at [phone] within 24 hours of collection time if culture is needed Performed By: #### 3 0965 #### [facility] [address] Sodium [Moles/Vol] 137 mmol/L Normal 136-145 [facility] Comment on above: Order Comment: No: D o not add to previous draw Criteria for reflexing a culture was not met. Please call the lab at [phone] within 24 hours of collection time if culture is needed Performed By: #### 3 0965 #### [facility] [address] Urea nitrogen [Mass/Vol] 11 mg/dL Normal 7-25 [facility] Comment on above: Order Comment: No: D o not add to previous draw Criteria for reflexing a culture was not met. Please call the lab at [phone] within 24 hours of collection time if culture is needed Performed By: #### 3 0965 #### [facility] [address] [place] [address], [facility] CBC W/DIFFon 11-14-2018 ABS BASOPHILS 0.0 10*3/uL Normal 0.0-0.2 [facility] Comment on above: Order Comment: No: D o not add to previous draw Criteria for reflexing a culture was not met. Please call the lab at [phone] within 24 hours of collection time if culture is needed Performed By: #### 3 0965 #### [facility] [address] ABS IMM GRANS 0.0 10*3/uL Normal 0.0-0.2 [facility] Comment on above: Order Comment: No: D o not add to previous draw Criteria for reflexing a culture was not met. Please call the lab at [phone] within 24 hours of collection time if culture is needed Performed By: #### 3 0965 #### [facility] [address] ABS NEUTROPHILS 5.0 10*3/uL Normal 1.6-7.6 [facility] Comment on above: Order Comment: No: D o not add to previous draw Criteria for reflexing a culture was not met. Please call the lab at [phone] within 24 hours of collection time if culture is needed Performed By: #### 3 0965 #### [facility] [address] Basophils/100 WBC (Bld) 0.1 % Normal 0.0-1.0 [facility] Comment on above: Order Comment: No: D o not add to previous draw Criteria for reflexing a culture was not met. Please call the lab at [phone] within 24 hours of collection time if culture is needed Performed By: #### 3 0965 #### [facility] [address] [place] [address], [facility] Eosinophils (Bld) [#/Vol] 0.2 10*3/uL Normal 0.0-0.5 The [facility] Comment on above: Order Comment: No: D o not add to previous draw Criteria for reflexing a culture was not met. Please call the lab at [phone] within 24 hours of collection time if culture is needed Performed By: #### 3 0965 #### [facility] [address] [place] [address], [facility] Eosinophils/100 WBC (Bld) 1.8 % Normal 0.0-6.0 [facility] Comment on above: Order Comment: No: D o not add to previous draw Criteria for reflexing a culture was not met. Please call the lab at 7668 within 24 hours of collection time if culture is needed Performed By: #### 3 0965 #### [facility] [address] Erythrocyte distribution width (RBC) [Ratio] 15.9 % High 11.5-15.0 [facility] Comment on above: Order Comment: No: D o not add to previous draw Criteria for reflexing a culture was not met. Please call the lab at 7668 within 24 hours of collection time if culture is needed Performed By: #### 3 0965 #### [facility] [address] Hematocrit (Bld) [Volume fraction] 36.8 % Normal 36.0-45.0 [facility] Comment on above: Order Comment: No: D o not add to previous draw Criteria for reflexing a culture was not met. Please call the lab at 7668 within 24 hours of collection time if culture is needed Performed By: #### 3 0965 #### [facility] [address] Hemoglobin (Bld) [Mass/Vol] 12.1 g/dL Normal 12.0-15.0 [facility] Comment on above: Order Comment: No: D o not add to previous draw Criteria for reflexing a culture was not met. Please call the lab at 7668 within 24 hours of collection time if culture is needed Performed By: #### 3 0965 #### [facility] [address] [place] [address], [facility] IMMATURE GRANS 0.4 % Normal 0.0-1.0 [facility] Comment on above: Order Comment: No: D o not add to previous draw Criteria for reflexing a culture was not met. Please call the lab at 7668 within 24 hours of collection time if culture is needed Performed By: #### 3 0965 #### [facility] [address] [place] [address], [facility] Lymphocytes (Bld) [#/Vol] 4.7 10*3/uL High 1.2-4.0 [facility] Comment on above: Order Comment: No: D o not add to previous draw Criteria for reflexing a culture was not met. Please call the lab at 7668 within 24 hours of collection time if culture is needed Performed By: #### 3 0965 #### [facility] [address] [place] [address], [facility] Lymphocytes/100 WBC (Bld) 45.2 % High 20.0-45.0 [facility] Comment on above: Order Comment: No: D o not add to previous draw Criteria for reflexing a culture was not met. Please call the lab at 7668 within 24 hours of collection time if culture is needed Performed By: #### 3 0965 #### [facility] [address] [place] [address], [facility] MCH (RBC) [Entitic mass] 28.7 pg Normal 27.0-33.0 [facility] Comment on above: Order Comment: No: D o not add to previous draw Criteria for reflexing a culture was not met. Please call the lab at 7668 within 24 hours of collection time if culture is needed Performed By: #### 3 0965 #### [facility] [address] [place] [address], [facility] MCHC (RBC) [Mass/Vol] 32.9 g/dL Normal 32.0-35.0 [facility] Comment on above: Order Comment: No: D o not add to previous draw Criteria for reflexing a culture was not met. Please call the lab at 7668 within 24 hours of collection time if culture is needed Performed By: #### 3 0965 #### [facility] [address] [place] [address], [facility] MCV (RBC) [Entitic vol] 87.2 fL Normal 82.0-98.0 [facility] Comment on above: Order Comment: No: D o not add to previous draw Criteria for reflexing a culture was not met. Please call the lab at 7668 within 24 hours of collection time if culture is needed Performed By: #### 3 0965 #### [facility] [address] [place] [address], [facility] Monocytes (Bld) [#/Vol] 0.5 10*3/uL Normal 0.1-1.0 [facility] Comment on above: Order Comment: No: D o not add to previous draw Criteria for reflexing a culture was not met. Please call the lab at 7668 within 24 hours of collection time if culture is needed Performed By: #### 3 0965 #### [facility] [address] [place] [address], [place] MONOS 4.5 % Low 5.0-12.0 [facility] Comment on above: Order Comment: No: D o not add to previous draw Criteria for reflexing a culture was not met. Please call the lab at 7668 within 24 hours of collection time if culture is needed Performed By: #### 3 0965 #### [facility] [address] [place] [address], [facility] Neutrophils/100 WBC (Bld) 48.0 % Normal 40.0-72.0 [facility] Comment on above: Order Comment: No: D o not add to previous draw Criteria for reflexing a culture was not met. Please call the lab at 7668 within 24 hours of collection time if culture is needed Performed By: #### 3 0965 #### [facility] [address] [place] [address], [facility] Nucleated RBC/100 WBC (Bld) [Ratio] 0 % Normal 0-0 [facility] Comment on above: Order Comment: No: D o not add to previous draw Criteria for reflexing a culture was not met. Please call the lab at 7668 within 24 hours of collection time if culture is needed Performed By: #### 3 0965 #### [facility] [address] [place] [address], [facility] PLAT CNT 193 10*3/uL Normal 150-400 The [facility] Comment on above: Order Comment: No: D o not add to previous draw Criteria for reflexing a culture was not met. Please call the lab at 7668 within 24 hours of collection time if culture is needed Performed By: #### 3 0965 #### [facility] [address] RBC (Bld) [#/Vol] 4.22 10*6/uL Normal 3.80-5.00 [facility] Comment on above: Order Comment: No: D o not add to previous draw Criteria for reflexing a culture was not met. Please call the lab at 7668 within 24 hours of collection time if culture is needed Performed By: #### 3 0965 #### [facility] [address] WBC (Bld) [#/Vol] 10.38 10*3/uL Normal 4.00-10.60 [facility] Comment on above: Order Comment: No: D o not add to previous draw Criteria for reflexing a culture was not met. Please call the lab at 7668 within 24 hours of collection time if culture is needed Performed By: #### 3 0965 #### [address] CHEST AND LATERALon 11-15-19 CHEST AND LATERAL [facility] Department of Radiology [address] [place] [id number] ======== Patient Name: EPI DAILEY : 1950 Sex: F Age: Race: White Pt. Location: [address] [place] [address] Patient Status: I Ordered Date: 11/14/2018 8:00:00 [...] findings. Electronically signed by:Jamey Hamilton. Transcribed by: [email or web address], User Resident: GAGAN GREENE Electronically Signed by: JAMEY HAMILTON @ 11/15/2018 09:14 AM I personally read this/these film(s) with this resident Normal [facility] Comment on above: Order Comment: No: D o not add to previous draw Criteria for reflexing a culture was not met. Please call the lab at 7668 within 24 hours of collection time if culture is needed LIPID PROFILEon 11-14-2018 Cholesterol [Mass/Vol] 113 mg/dL Low 120-200 [facility] Comment on above: Order Comment: No: [...] Risk Performed By: #### 3 0965 #### [facility] [address] [place] [address], [place] Cholesterol in HDL [Mass/Vol] 29 mg/dL Normal 23-92 [facility] Comment on above: Order Comment: No: [...] Risk Performed By: #### 3 0965 #### [facility] [address] [place] [address], [place] Cholesterol in LDL [Mass/Vol] 61 mg/dL Normal 0-130 [facility] Comment on above: Order Comment: No: D o not add to previous draw Criteria for reflexing a culture was not met. Please call the lab at 7668 within 24 hours of collection time if culture is needed Result Comment: LDL IS A CALCULATION LDL IS ONLY VALID IF THE TRIG IS LESS THAN 400. Performed By: #### 3 0965 #### [facility] [address] [place] [address], [place] Cholesterol.total/C holesterol in HDL [Mass ratio] 3.9 {ratio} Normal 0.0-4.5 [facility] Comment on above: Order Comment: No: D o not add to previous draw Criteria for reflexing a culture was not met. Please call the lab at 7668 within 24 hours of collection time if culture is needed Performed By: #### 3 0965 #### [facility] [address] NON-HDL CHOLESTEROL 84 mg/dL Normal [facility] Comment on above: Order Comment: No: D o not add to previous draw Criteria for reflexing a culture was not met. Please call the lab at 7668 within 24 hours of collection time if culture is needed Performed By: #### 3 0965 #### [facility] [address] [facility]. [address] Triglyceride [Mass/Vol] 113 mg/dL Normal 40-149 [facility] Comment on above: Order Comment: No: [...] RISK Performed By: #### 3 0965 #### [facility] [address] [place] [address], [facility] VLDL CHOL 23 mg/dL Normal 0-40 [facility] Comment on above: Order Comment: No: D o not add to previous draw Criteria for reflexing a culture was not met. Please call the lab at 7668 within 24 hours of collection time if culture is needed Performed By: #### 3 0965 #### [address] [place] [address], [facility] MAGNESIUM BLOODon 11-14-2018 Magnesium [Mass/Vol] 2.0 mg/dL Normal 1.9-2.7 [facility] Comment on above: Order Comment: No: D o not add to previous draw Criteria for reflexing a culture was not met. Please call the lab at 7668 within 24 hours of collection time if culture is needed Performed By: #### 3 0965 #### [facility] [address] [facility] [place] [address], [facility] MRI LUMBAR SPINE W WO CONTRA STon 11-14-2018 MRI LUMBAR SPINE W WO CONTRAST [facility] Department of Radiology [address] [place] [id number] ======== Patient Name: EPI DAILEY : 1950 Sex: F Age: Race: White Pt. Location: [id number] Patient Status: I Ordered Date: 11/13/2018 7:45:00 [...] spine. Electronically signed by:Kunal Bloom. Transcribed by: [email or web address], User Resident: Electronically Signed by: KUNAL BLOOM @ 11/15/2018 02:54 PM Normal [facility] Comment on above: Order Comment: No: D o not add to previous draw PROTHROMBIN TIMEon 9 INR Coag (PPP) [Relative time] 1.04 {INR} Normal 0.91-1.16 [facility] Comment on above: Order Comment: No: D o not add to previous draw Criteria for reflexing a culture was not met. Please call the lab at [phone] within 24 hours of collection time if [...] 1995;[id number]. Performed By: #### 3 0965 #### [facility] [address] PT Coag (PPP) [Time] 13.6 s Normal 12.3-14.8 [facility] Comment on above: Order Comment: No: [...] SAMPLING. Performed By: #### 3 0965 #### [facility] [address] TROPONIN-Ion 11-14-2018 Troponin I.cardiac [Mass/Vol] 1.03 ng/mL Critically high 0.00-0.04 [facility] Comment on above: Order Comment: No: D o not add to previous draw Result Comment: M-ID EVIOUS CRITICAL RESULT REFERENCE RANGES: 0.00 - 0.04 ng/ml NORMAL 0.05 - 0.50 ng/ml INDETERMINATE > 0.50 ng/ml CONSISTENT WITH AN M.I. Performed By: #### 3 5200 #### [facility] [address] UFH HEPARIN ASSAYon 11-15-19 19 UNFRACTIONATED HEPARIN 0.21 IU/mL Low 0.30-0.70 [facility] Comment on above: Result Comment: [place]ora roxaban and Apixaban will interfere with the anti Xa assay used to monitor UFH and LMWH. Performed By: #### 3 0965 #### [facility] [address] UNFRACTIONATED HEPARIN 0.26 IU/mL Low 0.30-0.70 [facility] Comment on above: Result Comment: [place] roxaban and Apixaban will interfere with the anti Xa assay used to monitor UFH and LMWH. Performed By: #### 3 0965 #### [facility] [address] [place] [address], [facility] UNFRACTIONATED HEPARIN 0.21 IU/mL Low 0.30-0.70 [facility] Comment on above: Result Comment: Dora roxaban and Apixaban will interfere with the anti Xa assay used to monitor UFH and LMWH. Performed By: #### 3 0965 #### [facility] [address] [place] [address], [facility] UNFRACTIONATED HEPARIN <0.10 Critically low 0.30-0.70 [facility] Comment on above: Result Comment: [place]ora roxaban and Apixaban will interfere with the anti Xa assay used to monitor UFH and LMWH. RESULTS CHECKED AND CALLED. ACCURATELY READ BACK BY WILIAM DOMINGO RN @0058 Performed By: #### 3 0477 #### [facility] [address] [facility]. [address] BASIC METABOLIC PANELon 08-2 Calcium [Mass/Vol] 9.2 mg/dL Normal 8.6-10.3 [facility] Comment on above: Order Comment: No: D o not add to previous draw Performed By: #### 0 0071, 47736, 97635 #### [facility] [address] [facility] [place] [place] [address], [facility] Chloride [Moles/Vol] 103 mmol/L Normal 98-107 [facility] Comment on above: Order Comment: No: D o not add to previous draw Performed By: #### 0 0071, 80404, 08379 #### [facility] [address] [place] [address], [facility] CO2 [Moles/Vol] 22 mmol/L Normal 21-31 [facility] Comment on above: Order Comment: No: D o not add to previous draw Performed By: #### 0 0071, 66184, 83627 #### [facility] [address] [place] [address], [place] Creatinine [Mass/Vol] 0.74 mg/dL Normal 0.60-1.20 [facility] Comment on above: Order Comment: No: D o not add to previous draw Performed By: #### 0 0071, 38384, 81763 #### [facility] [address] [place] [address], [place] GFR/1.73 sq M predicted among blacks MDRD (S/P/Bld) [Vol rate/Area] mL/min/{1.73_m2} Normal >60 [facility] Comment on above: Order Comment: No: D o not add to previous draw Performed By: #### 0 0071, 75814, 09170 #### [facility] [address] [place] [address], [place] GFR/1.73 sq M predicted among non-blacks MDRD (S/P/Bld) [Vol rate/Area] mL/min/{1.73_m2} Normal >60 [facility] Comment on above: Order Comment: No: D o not add to previous draw Performed By: #### 0 0071, 26976, 13428 #### [facility] [address] [place] [address], [place] Glucose [Mass/Vol] 116 mg/dL High 70-100 [facility] Comment on above: Order Comment: No: D o not add to previous draw Performed By: #### 0 0071, 80832, 38744 #### [facility] [address] [place] [address], [place] Potassium [Moles/Vol] 3.5 mmol/L Normal 3.5-5.1 [facility] Comment on above: Order Comment: No: D o not add to previous draw Performed By: #### 0 0071, 11063, 67731 #### [facility] [address] [place] [address], [place] Sodium [Moles/Vol] 137 mmol/L Normal 136-145 [facility] Comment on above: Order Comment: No: D o not add to previous draw Performed By: #### 0 0071, 00224, 43857 #### [facility] [address] [facility] Urea nitrogen [Mass/Vol] 14 mg/dL Normal 7-25 [facility] Comment on above: Order Comment: No: D o not add to previous draw Performed By: #### 0 0071, 06502, 38086 #### [facility] [address] BNP (B-TYPE NATRIURETIC PEPT NICK)on 11-13-2018 Natriuretic peptide B (Bld) [Mass/Vol] 695 pg/mL High 0-100 [facility] Comment on above: Order Comment: Yes: Add to Previous draw if able Result Comment: Give n the appropriate clinical setting a BNP result of >100 pg/mL indicates congestive heart failure. Performed By: #### 8 5123, 24029 #### [facility] [address] [facility] [place] [address], [facility] CBC W/DIFFon 11-13-2018 ABS BASOPHILS 0.0 10*3/uL Normal 0.0-0.2 The [facility] Comment on above: Performed By: #### 5 0103 #### [facility] [address] [facility] [place] [place] [address], [facility] ABS IMM GRANS 0.1 10*3/uL Normal 0.0-0.2 [facility] Comment on above: Performed By: #### 5 0103 #### [facility] [address] [facility] [place] [place] [address], [facility] ABS NEUTROPHILS 9.9 10*3/uL High 1.6-7.6 [facility] Comment on above: Performed By: #### 5 0103 #### [facility] [address] [facility]. [address] Basophils/100 WBC (Bld) 0.1 % Normal 0.0-1.0 [facility] Comment on above: Performed By: #### 5 0103 #### [facility] [address] [place] [address], [facility] Eosinophils (Bld) [#/Vol] 0.0 10*3/uL Normal 0.0-0.5 [facility] Comment on above: Performed By: #### 5 0103 #### [facility] [address] [place] [address], [facility] Eosinophils/100 WBC (Bld) 0.2 % Normal 0.0-6.0 [facility] Comment on above: Performed By: #### 5 0103 #### [facility] [address] [facility] Erythrocyte distribution width (RBC) [Ratio] 15.9 % High 11.5-15.0 [facility] Comment on above: Performed By: #### 5 0103 #### [facility] [address] Hematocrit (Bld) [Volume fraction] 36.8 % Normal 36.0-45.0 [facility] Comment on above: Performed By: #### 5 0103 #### [facility] [address] [facility] Hemoglobin (Bld) [Mass/Vol] 12.4 g/dL Normal 12.0-15.0 [facility] Comment on above: Performed By: #### 5 0103 #### [facility] [address] [place] [address], [facility] IMMATURE GRANS 0.6 % Normal 0.0-1.0 [facility] Comment on above: Performed By: #### 5 0103 #### [facility] [address] [facility] [place] [address], [facility] Lymphocytes (Bld) [#/Vol] 5.0 10*3/uL High 1.2-4.0 [facility] Comment on above: Performed By: #### 5 0103 #### [facility] [address] [facility] [place] [address], [facility] Lymphocytes/100 WBC (Bld) 32.2 % Normal 20.0-45.0 [facility] Comment on above: Performed By: #### 5 0103 #### [facility] [address] [place] [address], [facility] MCH (RBC) [Entitic mass] 28.8 pg Normal 27.0-33.0 [facility] Comment on above: Performed By: #### 5 3 #### [facility] [address] [facility] MCHC (RBC) [Mass/Vol] 33.7 g/dL Normal 32.0-35.0 [facility] Comment on above: Performed By: #### 5 0103 #### [facility] [address] [facility] [place] [place] [address], [facility] MCV (RBC) [Entitic vol] 85.6 fL Normal 82.0-98.0 [facility] Comment on above: Performed By: #### 5 3 #### [facility] [address] [facility] [place] [place] [address], [facility] Monocytes (Bld) [#/Vol] 0.5 10*3/uL Normal 0.1-1.0 [facility] Comment on above: Performed By: #### 5 3 #### [facility] [address] [facility] [place] [place] [address], [facility] MONOS 3.3 % Low 5.0-12.0 [facility] Comment on above: Performed By: #### 5 3 #### [facility] [address] [place] [address], [facility] Neutrophils/100 WBC (Bld) 63.6 % Normal 40.0-72.0 [facility] Comment on above: Performed By: #### 5 0103 #### [facility] [address] [place] [address], [facility] Nucleated RBC/100 WBC (Bld) [Ratio] 0 % Normal 0-0 [facility] Comment on above: Performed By: #### 5 0103 #### [facility] [address] [place] [address], [facility] PLAT CNT 213 10*3/uL Normal 150-400 The [facility] Comment on above: Performed By: #### 5 0103 #### [facility] [address] [place] [address], [facility] RBC (Bld) [#/Vol] 4.30 10*6/uL Normal 3.80-5.00 [facility] Comment on above: Performed By: #### 5 0103 #### [facility] [address] [place] [address], [facility] WBC (Bld) [#/Vol] 15.51 10*3/uL High 4.00-10.60 [facility] Comment on above: Performed By: #### 5 0103 #### [facility] [address] [place] [address], [facility] HEMOGLOBIN A1Con 11-13-2018 HbA1c (Bld) [Mass fraction] 117 mg/dL Normal 70-126 [facility] Comment on above: Order Comment: Yes: Add to Previous draw if able Performed By: #### 8 5123, 60447 #### [facility] [address] [place] [address], [facility] HbA1c (Bld) [Mass fraction] 5.7 % Normal 4.0-6.0 [facility] Comment on above: Order Comment: Yes: Add to Previous draw if able Performed By: #### 8 8013, 38787 #### [facility] [address] [place] [address], [facility] LIVER BATTERYon 11-13-2018 Albumin [Mass/Vol] 3.7 g/dL Normal 3.5-5.7 [facility] Comment on above: Order Comment: No: D o not add to previous draw Performed By: #### 0 0071, 47755, 80601 #### [facility] [address] [place] [address], [place] ALKALINE PHOSPH 61 IU/L Normal 34-104 [facility] Comment on above: Order Comment: No: D o not add to previous draw Performed By: #### 0 0071, 35019, 06052 #### [facility] [address] [place] [address], [place] ALT [Catalytic activity/Vol] 156 U/L High 7-52 [facility] Comment on above: Order Comment: No: D o not add to previous draw Performed By: #### 0 0071, 26428, 55593 #### [facility] [address] [place] [address], [facility] AST [Catalytic activity/Vol] 62 U/L High 13-39 [facility] Comment on above: Order Comment: No: D o not add to previous draw Performed By: #### 0 0071, 60751, 20409 #### [facility] [address] [place] [address], [place] Bilirubin [Mass/Vol] 0.5 mg/dL Normal 0.3-1.0 [facility] Comment on above: Order Comment: No: D o not add to previous draw Performed By: #### 0 0071, 87400, 58424 #### [facility] [address] [place] [address], [place] Bilirubin.direct [Mass/Vol] 0.1 mg/dL Normal 0.0-0.2 [facility] [facility] Comment on above: Order Comment: No: D o not add to previous draw Performed By: #### 0 [id number], [id number], [id number] #### [facility] [address] [place] [address], [facility] Protein [Mass/Vol] 6.8 g/dL Normal 6.0-8.3 [facility] Comment on above: Order Comment: No: D o not add to previous draw Performed By: #### 0 [id number], [id number], [id number] #### [facility] [address] TROPONIN-Ion 11-13-2018 Troponin I.cardiac [Mass/Vol] 1.42 ng/mL Critically high 0.00-0.04 [facility] Comment on above: Order Comment: No: D o not add to previous draw Result Comment: M-ID EVIOUS CRITICAL RESULT REFERENCE RANGES: 0.00 - 0.04 ng/ml NORMAL 0.05 - 0.50 ng/ml INDETERMINATE > 0.50 ng/ml CONSISTENT WITH AN M.I. Performed By: #### 3 [id number] #### [facility] [address] Troponin I.cardiac [Mass/Vol] 1.12 ng/mL Critically high 0.00-0.04 [facility] Comment on above: Order Comment: No: D o not add to previous draw Result Comment: M-CR ITICAL RESULT(S) REVIEWED, CALLED TO AND READ BACK BY MONICA HERNANDEZ RN @ 2000 ON 11-13-18 REFERENCE RANGES: 0.00 - 0.04 ng/ml NORMAL 0.05 - 0.50 ng/ml INDETERMINATE > 0.50 ng/ml CONSISTENT WITH AN M.I. Performed By: #### 0 0071, [id number], [id number] #### [facility] [address] URINALYSIS REFLEXon 11-14-19 Appearance (U) CLEAR Normal CLEAR [facility] Comment on above: Order Comment: No: D o not add to previous draw Criteria for reflexing a culture was not met. Please call the lab at [phone] within 24 hours of collection time if culture is needed Performed By: #### 3 0965 #### [facility] [address] [place] [address], [place] Bilirubin [Mass/Vol] Negative Normal NEGATIVE [facility] Comment on above: Order Comment: No: D o not add to previous draw Criteria for reflexing a culture was not met. Please call the lab at [phone] within 24 hours of collection time if culture is needed Performed By: #### 3 0965 #### [facility] [address] [place] [address], [place] BLOOD Negative Normal NEGATIVE [facility] Comment on above: Order Comment: No: D o not add to previous draw Criteria for reflexing a culture was not met. Please call the lab at [phone] within 24 hours of collection time if culture is needed Performed By: #### 3 0965 #### [facility] [address] [place] [address], [place] Color (U) YELLOW Abnormal YELLOW [facility] Comment on above: Order Comment: No: D o not add to previous draw Criteria for reflexing a culture was not met. Please call the lab at [phone] within 24 hours of collection time if culture is needed Performed By: #### 3 0965 #### [facility] [address] [place] [address], [place] Glucose [Mass/Vol] Negative Normal NEGATIVE [facility] Comment on above: Order Comment: No: D o not add to previous draw Criteria for reflexing a culture was not met. Please call the lab at [phone] within 24 hours of collection time if culture is needed Performed By: #### 3 0965 #### [facility] [address] [place] [address], [place] KETONE Negative Normal NEGATIVE [facility] Comment on above: Order Comment: No: D o not add to previous draw Criteria for reflexing a culture was not met. Please call the lab at [phone] within 24 hours of collection time if culture is needed Performed By: #### 3 0965 #### [facility] [address] [place] [address], [facility] LEUK EMMANUELLE Negative Normal NEGATIVE [facility] Comment on above: Order Comment: No: D o not add to previous draw Criteria for reflexing a culture was not met. Please call the lab at [phone] within 24 hours of collection time if culture is needed Performed By: #### 3 0965 #### [facility] [address] [facility] [address], [facility] MICRO NOT DONE negative chemical reactions unless requested in original order Normal [facility] Comment on above: Order Comment: No: D o not add to previous draw Criteria for reflexing a culture was not met. Please call the lab at [phone] within 24 hours of collection time if culture is needed Performed By: #### 3 0965 #### [facility] [address] [facility] [place] [address], [facility] Nitrite Ql (U) Negative Normal NEGATIVE [facility] Comment on above: Order Comment: No: D o not add to previous draw Criteria for reflexing a culture was not met. Please call the lab at [phone] within 24 hours of collection time if culture is needed Performed By: #### 3 0965 #### [facility] [address] [facility] [place] [address], [facility] pH (Bld) 6.0 Normal 5.0-8.0 [facility] Comment on above: Order Comment: No: D o not add to previous draw Criteria for reflexing a culture was not met. Please call the lab at [phone] within 24 hours of collection time if culture is needed Performed By: #### 3 0965 #### [facility] [address] [facility] [place] [address], [facility] Protein (U) [Mass/Vol] Negative Normal NEGATIVE [facility] Comment on above: Order Comment: No: D o not add to previous draw Criteria for reflexing a culture was not met. Please call the lab at [phone] within 24 hours of collection time if culture is needed Performed By: #### 3 0965 #### [facility] [address] [facility] [address], [facility] SPEC GRAV 1.009 Low 1.015-1.020 [facility] Comment on above: Order Comment: No: D o not add to previous draw Criteria for reflexing a culture was not met. Please call the lab at [phone] within 24 hours of collection time if culture is needed Performed By: #### 3 0965 #### [facility] [address] Vital Signs Date Time Vital Sign Value Performing Clinician Facility 05-11-2023 13:30-0500 Body height 162.56 cm [facility] 05-11-2023 13:30-0500 Body mass index (BMI) [Ratio] 27.6 kg/m2 [facility] 05-11-2023 13:30-0500 Body weight 73.02 kg [facility] 05-11-2023 13:30-0500 Diastolic blood pressure 72 mm[Hg] [facility] 05-11-2023 13:30-0500 Heart rate 84 /min [facility] 05-11-2023 13:30-0500 SaO2% (BldA) [Mass fraction] 97 % [facility] 05-11-2023 13:30-0500 Systolic blood pressure 168 mm[Hg] [facility] 02-27-2023 11:00-0500 Body height 162.56 cm Al Ball Other [facility] 02-27-2023 11:00-0500 Body mass index (BMI) [Ratio] 26.43 kg/m2 Al Ball Other [facility] Other 02-27-2023 11:00-0500 Body weight 69.85 kg Al Ball Other [facility] 02-27-2023 11:00-0500 Diastolic blood pressure 72 mm[Hg] Al Ball Other [facility] 02-27-2023 11:00-0500 Respiratory rate 18 /min Al Ball Other [facility] Other 02-27-2023 11:00-0500 Systolic blood pressure 190 mm[Hg] Al Soto Other [facility] Encounters Encounter Date Encounter Type Care Provider Facility Start: 05-11-2023 End: 05-11-2023 ambulatory [facility] Work Phone: Start: 05-11-2023 End: 05-11-2023 Patient encounter procedure [facility] Work Phone: Start: 02-27-2023 End: 02-27-2023 ambulatory Al Soto Other [facility] Other Start: 02-27-2023 Patient encounter procedure Al Soto [facility] Start: 02-27-2023 End: 02-27-2023 Patient encounter procedure [facility] Physician [facility] Work Phone: Start: 02-19-2023 End: 02-19-2023 ambulatory Al Soto Other [facility] Other Start: 02-19-2023 Telephone encounter Al Soto [facility] Start: 12-29-2022 End: 12-29-2022 ambulatory Al Soto Other [facility] Other Start: 12-29-2022 Nursing evaluation o f patient and report Al Soto [facility] Start: 06-05-2022 End: 06-06-[address] GONSALVES LISTED REQUEST Facility:[facility] Start: 05-16-2022 End: 05-17-[address] AL SOTO Facility:[facility] Start: 02-26-2022 Adult health examination Al Soto Other [facility] Other Start: 02-24-2022 End: 02-25-[address] AL SOTO Facility:[facility] Start: 08-21-2021 End: 08-22-[address] AL SOTO Facility:[facility] Start: 10-11-2020 End: 10-12-2020 ambulatory [facility] Procedures Date Procedure Procedure Detail Performing Clinician [...] influenza virus vaccine, unspecified formulation [facility] 12-29-2022 influenza, high dose seasonal, preservative-free Al Soto Other [facility] Other 12-26-2021 influenza virus vaccine, split virus (incl. purified surface antigen) Al Soto Other [facility] Other 12-26-2021 influenza virus vaccine, unspecified formulation [facility] 07-07-2018 pneumococcal polysaccharide vaccine, 23 valent Al Soto Other [facility] 01-06-2018 influenza virus vaccine, split virus (incl. purified surface antigen) Al Soto Other [facility] Other 01-06-2018 influenza virus vaccine, unspecified formulation [facility] 06-29-2017 diphtheria, tetanus toxoids and acellular pertussis vaccine, unspecified formulation Al Soto Other [facility] 06-29-2017 pneumococcal conjuga te vaccine, 13 valent Al Soto Other [facility] Payers Date Payer Category Payer Medicare [id number] 1958 Self-pay [id number] 1950 Unknown [id number] [id number] 1950 Unknown [id number] [id number] 1950 Unknown [id number] [id number] 1950 Unknown [id number] [id number] [id number] Self-pay Self Pay [id number] Unknown [id number] [id number] Social History Date Type Detail Facility Unknown if ever smoked [facility] Other Sex Assigned At Sex Assigned At Bir th [facility] Other Start: 05-11-2023 Tobacco smoking status NHIS Never smoked tobacco (finding) [facility] Start: 1950 Sex Assigned At Female F [facility] Evaluation note 02-27-2023 Note Date & Type [...] Continue estrogen crm. Healthy diet and exercise. DEXA qoy [facility] Other Evaluation note 02-19-2023 Note Date & Type Note Facility 02-19-2023 Evaluation note Encounter Date Diagnosis Assessment Notes Jan, Primary hypertension (ICD-10 - I10) Jan, Hypercholesteremia (ICD-10 - E78.00) Jan, Other specified hypothyroidism (ICD-10 - E03.8) Jan, Autoimmune thyroiditis (ICD-10 - E06.3) Jan, Vitamin D deficiency (ICD-10 - E55.9) Jan, High risk medication use (ICD-10 - Z79.899) [facility] Other Evaluation note Note Date & Type Note Facility Evaluation note No Information [facility] Other Evaluation note Note Date & Type Note Facility Evaluation note Diagnosis Onset Date Bacterial conjunctivitis of right eye [facility] Work Phone: History general Narrative - Reported Note Date & Type Note Facility History general Narrative - Reported Type Medical History hypertension Medical History hypercholesterolemia Surgical History Problem Title : ANTE RIOR CERVICAL DISCECTOMY AND FUSION (ACDF) (51835), Problem Status : Active, Surgical History Problem Title : past surgical history reviewed, Problem Description : past surgical history reviewed, Problem Comment : reviewed - no changes required, Problem Status : Inactive, Surgical History Problem Title : Spin al Fusion - Neck, Problem Status : Active, [facility] Other History general Narrative - Reported Note Date & Type Note Facility History general Narrative - Reported Type Medical History hypertension Medical History hypercholesterolemia Surgical History neck surgery Hospitalization History see surgical history [facility] Other Summary Purpose Family History Relationship Condition Age at Onset Recorded Date/T addy father Unknown Not Specified Unknown Hypertension Unknown Advance Directives Advance Directive Response Recorded Date/ Time Advance Directives No September 27 9 10:11am Hospital Course Note MR#: [id number] Pt. Name: Epi Dailey Admitted: 11/13/2018 Discharged: 11/16/2018 Date of : 1950 Physician: Ryan Rehman MD DISCHARGE SUMMARY DIAGNOSES AT ADMISSION: 1. [id number] myocardial infarction. 2. Acute congestive heart failure exacerbation. 3. Oropharyngeal candidiasis. DIAGNOSES AT DISCHARGE: 1. [id number] myocardial infarction. 2. Acute diastolic congestive heart failure exacerbation, resolved. 3. Oropharyngeal candidiasis, resolved. 4. Questionable pneumonia treated. 5. Hypertension controlled. 6. Hyperlipidemia. 7. Abnormal LFTs, resolved. HOSPITAL COURSE: This is a 68-year-old female, who was recently treated with Bactrim for her urinary tract infection and was also started on antibiotics and steroids for possible pneumonia, was transferred from the [facility] for worsening shortness of breath along with left lower extremity weakness. The patient was started on Zosyn and ciprofloxacin for the last so (more content not included)... Chief Complaint and Reason for Visit Chief Complaint Wellness Rash Reason for Visit Bacterial conjunctiv itis of right eye Additional Source Comments INFORMATION SOURCE (unrecogn ized section and content) DATE CREATED AUTHOR 12/31/2018 [facility] DATE CREATED AUTHOR AUTHOR'S ORGANIZ ATION 03/30/2020 [facility] DATE CREATED AUTHOR AUTHOR'S ORGANIZ ATION 10/29/2020 [facility] DATE CREATED AUTHOR AUTHOR'S ORGANIZ ATION 06/06/2022 [facility] pitwi REASON FOR VISIT (unrecogniz ed section and content) FLU [facility]Wellness Lab OrdersW [facility] Care Teams (unrecognized sec tion [...] May 11, 2023 End: May 11, 2023 Maria Guadalupe Youssef APRN MAKE UP OPERATOR HELPER-C Attending Provider Active Start: April End: May [...] BE BASED ON THE PRIMARY CLINICAL RECORDS. [facility] [place] [employer] [facility]. provides no warranty or guarantee of the accuracy or completeness of information in this document.
[2024-03-08 10:21] LABS: Basophils Percent Auto 0.6 % (0.2-2.0); Eosinophils Absolute Auto 0.2 10^3/uL (0.0-0.7); Eosinophils Percent Auto 3.2 % (0.9-7.0); Hematocrit 41.7 % (36.0-48.0); Hemoglobin 14.2 g/dL (12.0-16.0); Immature Granulocytes Abs Auto 0.01 10^3/uL (0.00-0.03); Immature Granulocytes Pct Auto 0.1 % (0.0-0.5); Lymphocytes Absolute Auto 3.7 10^3/uL (1.2-3.8); Lymphocytes Percent Auto 53.7 % (20.5-60.0); Mean Corpuscular HGB Conc 34.1 g/dL (29.9-35.2); Mean Platelet Volume 11.4 fL (9.5-13.5); Monocytes Absolute Auto 0.5 10^3/uL (0.3-0.8); Monocytes Percent Auto 6.7 % (1.7-12.0); Neutrophils Absolute Auto 2.5 10^3/uL (1.4-6.5); Neutrophils Percent Auto 35.7 % (43.0-75.0); Platelet Count 221 10^3/uL (150-450); Red Blood Count 4.74 10^6/uL (4.20-5.40); Red Cell Distribution Width 14.3 % (11.0-15.0); White Blood Count 6.9 10^3/uL (4.0-11.0)
[2024-03-08 10:36] LABS: Alanine Aminotransferase 56 U/L (14-59); Albumin Globulin Ratio 0.9; Albumin Level 3.7 g/dL (3.4-5.0); Alkaline Phosphatase 76 U/L (46-116); Aspartate Amino Transferase 45 U/L (15-37); BUN Creatinine Ratio 14.3; Bilirubin Total 0.5 mg/dL (0.2-1.0); Calcium 9.2 mg/dL (8.5-10.1); Chloride 106 mmol/L (98-107); Chol HDL Ratio 4.1; Cholesterol 151 mg/dL (<=200); Estimated GFR (African America >60 (>=60 mL/min/1.73m^2); Estimated GFR (Non-African Ame >60 (>=60 mL/min/1.73m^2); Globulin 3.9 g/dL; Glucose 107 mg/dL (74-106); HDL Cholesterol 37 mg/dL (40-60); Sodium 142 mmol/L (136-145); Total Protein 7.6 g/dL (6.4-8.2); Triglycerides 149 mg/dL (<=150); VLDL CHOLESTEROL 29.8 mg/dL
== END 2024-03-08 09:50 | disposition home or self-care (01) ==
LOC: LAB 09:52
PROVIDERS: PCP Internal Medicine; Visit Provider Internal Medicine
DX: E03.9 Hypothyroidism, unspecified (principal); I10 Essential (primary) hypertension; E78.00 Pure hypercholesterolemia, unspecified
CPT/HCPCS: 36415; 80053; 80061; 84443; 85025

== ENCOUNTER 2024-04-18 13:31 | Emergency (ER) | payer MEDICARE, SELFPAY ==
[2024-04-18 13:56] VITALS: BP 161/91; PULSE 93; TEMP 36.9; O2SAT 95; BMI 26.6
--- NOTE | 2024-04-18 14:06 | CT_ITS ---
[address] [address] Patient Name: EPI GEORGE MRN: [id number] date: 1950 Sex: F Assigned Patient Location: ER Current Patient Location: ER Accession/Order Number: [id number] Exam Date: 04/18/2024 15:10 Report Date: 04/18/2024 15:39 At the request of: MASON CARROLL Procedure: CT abdomen pelvis w con EXAMINATION: CT abdomen pelvis w con HISTORY: Rectal bleeding , cramping, diarrhea COMPARISON: No relevant comparison available. TECHNIQUE: Axial, Coronal, and Sagittal images were obtained without and/or with IV contrast as indicated by examination type. Dose reduction techniques were achieved by using automated exposure control and/or adjustment of mA and/or kV according to patient size and/or use of iterative reconstruction technique. FINDINGS: LUNG BASES: No visible pulmonary or pleural disease. LIVER: No enlargement, atrophy, suspicious density, or significant focal lesion. BILIARY: No dilatation or calcification. PANCREAS: No lesion, fluid collection, or abnormal duct dilatation. SPLEEN: No enlargement or focal lesion. ADRENALS: No mass or enlargement. KIDNEYS: No mass, obstruction, or calcification. BOWEL/MESENTERY: Prominent circumferential wall thickening and edematous appearance of the descending and proximal sigmoid colon. No bowel obstruction, free air, free fluid. Scattered small lymph nodes within the mesentery. AORTA/VASCULAR: No aneurysm or dissection. RETROPERITONEUM: No mass or adenopathy. LYMPH NODES: No pelvic adenopathy. URINARY BLADDER: No visible focal wall thickening, lesion, or calculus. PELVIC ORGANS: Hysterectomy. ABDOMINAL WALL: No mass or hernia. BONES: No bony lesion or fracture. OTHER: Negative. CT/CT abdomen pelvis w con IMPRESSION: 1. Acute colitis of the descending and sigmoid colon. No obstruction. Electronically authenticated by: TRA LOVE Date: 04/18/2024 15:39
--- NOTE | 2024-04-18 14:08 | ED.GENADUL1 ---
HPI HPI - General Adult General Chief complaint: GI Bleed Stated complaint: ANAL BLEEDING DIARRHEA Time Seen by Provider: 04/18/24 14:02 Source: patient Mode of arrival: walk-in Limitations: no limitations History of Present Illness HPI narrative: 74-year-old female presents to the emergency department for a chief complaint of bloody diarrhea. She has had this for 2 to 3 days and yesterday she had abdominal cramping but that seems to have gone away. No fever or vomiting. She has never had a colonoscopy and has never had rectal bleeding like this previously. Related Data Home Medications ?Medication ?Instructions ?Recorded ?Confirmed amlodipine 2.5 mg tablet 2.5 mg PO BID 04/18/24 04/18/24 levothyroxine 75 mcg tablet 75 mcg PO DAILY 04/18/24 04/18/24 lisinopril 20 mg tablet 20 mg PO BID 04/18/24 04/18/24 lovastatin 20 mg tablet 20 mg PO DAILY 04/18/24 04/18/24 Previous Rx's ?Medication ?Instructions ?Recorded ciprofloxacin HCl 500 mg tablet 500 mg PO Q12H #20 tabs 04/18/24 (Cipro) metronidazole 500 mg tablet 500 mg PO TID #30 tabs 04/18/24 Allergies Allergy/AdvReac Type Severity Reaction Status Date / Time sulfamethoxazole (From AdvReac Mild Redness of Verified 04/18/24 13:55 Bactrim) Skin trimethoprim (From Bactrim) AdvReac Mild Redness of Verified 04/18/24 13:55 Skin Opioid HPI Opioid Management Most Recent Opioid Data: No Data to Display Review of Systems ROS Narrative A ten point review of systems is negative except as noted above. Exam Narrative Exam Narrative: Nurses note and vital signs reviewed and patient is not hypoxic. General: The patient appears well and in no apparent distress. Patient is resting comfortably on cart. Skin: Warm, dry, no pallor noted. There is no rash noted. Head: Normocephalic, atraumatic Eye: Normal conjunctiva, no drainage Ears, Nose, Mouth, and Throat: oral mucosa is moist. Nares patent. Cardiovascular: Regular Rate and Rhythm Respiratory: Patient is in no distress, no accessory muscle use, lungs are clear to auscultation, no wheezing, rales or rhonchi Back: non-tender GI: no tenderness to palpation, no masses appreciated. No rebound, guarding, or rigidity noted. No external hemorrhoids. Musculoskeletal: The patient has no evidence of calf tenderness, no pitting edema, symmetrical pulses noted bilaterally Neurological: A&O, normal speech Psychiatric: Cooperative Constitutional Vital Signs, click to edit/add: Last Vital Signs Temp 98.4 F 04/18/24 13:56 Pulse 84 04/18/24 14:23 Resp 18 04/18/24 14:23 BP 171/87 H 04/18/24 14:23 Pulse Ox 96 04/18/24 14:23 O2 Del Method Room Air 04/18/24 13:56 Course Vital Signs Vital signs: Vital Signs Temperature 98.4 F 04/18/24 13:56 Pulse Rate 93 H 04/18/24 13:56 Respiratory Rate 18 04/18/24 13:56 Blood Pressure 161/91 H 04/18/24 13:56 Pulse Oximetry 95 04/18/24 13:56 Oxygen Delivery Method Room Air 04/18/24 13:56 Temperature 98.4 F 04/18/24 13:56 Pulse Rate 84 04/18/24 14:23 Respiratory Rate 18 04/18/24 14:23 Blood Pressure 171/87 H 04/18/24 14:23 Pulse Oximetry 96 04/18/24 14:23 Oxygen Delivery Method Room Air 04/18/24 13:56 Medical Decision Making MDM Narrative Medical decision making narrative: CT scan per radiologist suggest colitis. The patient tells me that the last 2 times she had a bowel movement there was no blood in it. She does not require admission to the hospital at this point and is prescribed Cipro and Flagyl. Treatment diagnosis and follow-up were discussed with the patient. Differential Diagnosis Differential Diagnosis: Internal hemorrhoid, external hemorrhoid, colitis, diverticulitis Lab Data Lab results reviewed: Yes I reviewed the patient's lab results Labs: Lab Results 04/18/24 Range/Units 14:10 WBC 12.6 H (4.0-11.0) 10^3/uL RBC 4.96 (4.20-5.40) 10^6/uL Hgb 14.5 (12.0-16.0) g/dL Hct 43.6 (36.0-48.0) % MCV 87.9 (81.0-99.0) fL MCH 29.2 (26.7-34.0) pg MCHC 33.3 (29.9-35.2) g/dL RDW 14.0 (11.0-15.0) % Plt Count 265 (150-450) 10^3/uL MPV 11.3 (9.5-13.5) fL Neut % (Auto) 61.9 (43.0-75.0) % Lymph % (Auto) 31.8 (20.5-60.0) % Isabella % (Auto) 5.6 (1.7-12.0) % Eos % (Auto) 0.3 L (0.9-7.0) % Baso % (Auto) 0.2 (0.2-2.0) % Neut # (Auto) 7.8 H (1.4-6.5) 10^3/uL Lymph # (Auto) 4.0 H (1.2-3.8) 10^3/uL Isabella # (Auto) 0.7 (0.3-0.8) 10^3/uL Eos # (Auto) 0.0 (0.0-0.7) 10^3/uL Baso # (Auto) 0.0 (0.0-0.1) 10^3/uL Abs Immat Gran (auto) 0.02 (0.00-0.03) 10^3/uL Imm/Tot Granulo (auto) 0.2 (0.0-0.5) % Sodium 136 (136-145) mmol/L Potassium 3.6 (3.5-5.1) mmol/L Chloride 101 (98-107) mmol/L Carbon Dioxide 24.7 (21.0-32.0) mmol/L Anion Gap 13.9 BUN 13.0 (7.0-18.0) mg/dL Creatinine 1.02 (0.55-1.02) mg/dL Est GFR ( Amer) >60 (>=60 mL/min/1.73m^2) Est GFR (Non-Af Amer) 53 L (>=60 mL/min/1.73m^2) BUN/Creatinine Ratio 12.7 Glucose 123 H (74-106) mg/dL Calcium 9.8 (8.5-10.1) mg/dL Imaging Data CT scan - abdomen: Radiologist's impression: ITS Impressions Abdomen/Pelvis CT 04/18/24 14:06 IMPRESSION: 1. Acute colitis of the descending and sigmoid colon. No obstruction. Electronically authenticated by: TRA LOVE Date: 04/18/2024 15:39 Discharge Plan Discharge Chief Complaint: GI Bleed Clinical Impression: Colitis Patient Disposition: Home, Self-Care Time of Disposition Decision: 15:49 Condition: Good Mode of Transportation: Private Vehicle Prescriptions / Home Meds: New metronidazole 500 mg tablet 500 mg PO TID Qty: 30 0RF ciprofloxacin HCl [Cipro] 500 mg tablet 500 mg PO Q12H Qty: 20 0RF No Action amlodipine 2.5 mg tablet 2.5 mg PO BID lisinopril 20 mg tablet 20 mg PO BID lovastatin 20 mg tablet 20 mg PO DAILY levothyroxine 75 mcg tablet 75 mcg PO DAILY Print Language: Arabic Instructions: Colitis (ED) Referrals: Al Soto DO [Primary Care Provider] - 1 week
--- OUTSIDE RECORDS SUMMARY | 2024-04-18 14:13 | XMS_ITS | CCD ---
Author Organization [facility] Care Team Providers Care Speech Pathology Supervisor Name Role Phone TAMERA CHI Primary [...] source) Sulfamethoxazole / Trimethoprim Drug Allergy [facility] Repository (2 sources) patient allergy list reviewed by nurse or physicia Propensity to adverse reactions 06-30-19 Comment:Done [facility] Other (2 sources) Allergies Reconciled Propensity to adverse reactions Unknown [facility] Other (3 sources) Substance with sulfonamide structure and antibacterial mechanism of action (substance) Drug allergy 03-29-19 21 Unknown [facility] Other Medications Current Medications Medication Drug Class(es) [...] daily for 90 days *Pick strength-form from [employer] for eRX* Feb, Active Start: 02-26-2022 take 1 tablet by mouth once da dario Euthyrox 75mcg Euthyrox 75mcg, 1 Tablet daily # 90, 02/26/2022, Ref. x3. 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 Kali Haynes TSH RANGE SEE BELOW Normal [facility] Comment on above: Result Comment: <0.3 4 UIU/ml HYPERTHYROID 0.34-5.60 UIU/ml EUTHYROID >5.60 UIU/ml HYPOTHYROID Performed By: #### D ATTSH #### [facility] [address] [place], [place] [address] Dr. Kali Haynes MG MAMM SCREEN 3D IFEANYI CADon 05-16-2022 MG MAMM SCREEN 3D IFEANYI CAD Patient: EPI DAILEY Exam Date: 05/16/2022 : 1950 Gender:F Ordering : DR AL SOTO D.O. Admission #: [id number] Family : Order #: [id number] CLICK HERE TO VIEW EXAM RADIOLOGY REPORT [...] Treatments None Family Cancers None LOCATION: [facility] BREAST COMPOSITION: Heterogeneously dense,which may obscure [...] M.D. on 05/16/2022 at 14:31 Normal [facility] CBC AUTO DIFFon 02-24-2022 BASO # 0.0 103/ul Normal 0.0-0.1 [facility] Comment on above: Performed By: #### C BC #### [facility] [address] [place] [address] Dr. Kali Haynes Basophils/100 WBC (Bld) 0.5 % Normal 0.2-2.0 [facility] Comment on above: Performed By: #### C BC #### [facility] [address] [place] [address] Dr. Kali Haynes EO # 0.2 103/ul Normal 0.0-0.7 [facility] Comment on above: Performed By: #### C BC #### [facility] [address] [place] [address] Dr. Kali Haynes Eosinophils/100 WBC (Bld) 2.8 % Normal 0.9-7.0 [facility] Comment on above: Performed By: #### C BC #### [facility] [address] [place] [address] Dr. Kali Haynes Erythrocyte distribution width (RBC) [Ratio] 13.9 % Normal 11.0-15.0 [facility] Comment on above: Performed By: #### C BC #### [facility] [address] [place] [address] Dr. Kali Haynes Hematocrit (Bld) [Volume fraction] 43.0 % Normal 36.0-48.0 [facility] Comment on above: Performed By: #### C BC #### [facility] [address] [place] [address] Dr. Kali Haynes Hemoglobin (Bld) [Mass/Vol] 14.5 g/dL Normal 12.0-16.0 [facility] Comment on above: Performed By: #### C BC #### [facility] [address] [place] [address] Dr. Kali Haynes IG # 0.01 10e3/ul Normal 0.00-0.03 [facility] Comment on above: Performed By: #### C BC #### [facility] [address] [place] [address] Dr. Kali Haynes IG % 0.2 % Normal 0.0-0.5 [facility] Comment on above: Performed By: #### C BC #### [facility] [address] [place] [address] Dr. Kali Haynes LYMPH # 3.9 103/ul Critically high 1.2-3.8 [facility] Comment on above: Performed By: #### C BC #### [facility] [address] [place] [address] Dr. Kali Haynes Lymphocytes/100 WBC (Bld) 59.7 % Normal 20.5-60.0 [facility] Comment on above: Performed By: #### C BC #### [facility] [address] [place] [address] Dr. Kali Haynes MANUAL DIFF REQ NO Normal [facility] Comment on above: Performed By: #### C BC #### [facility] [address] [place] [address] Dr. Kali Haynes MCH (RBC) [Entitic mass] 29.3 pg Normal 26.7-34.0 [facility] Comment on above: Performed By: #### C BC #### [facility] [address] [place] [address] Dr. Kali Haynes MCHC (RBC) [Mass/Vol] 33.7 g/dL Normal 29.9-35.2 [facility] Comment on above: Performed By: #### C BC #### [facility] [address] [place] [address] Dr. Kali Haynes MCV (RBC) [Entitic vol] 86.9 fL Normal 81.0-99.0 [facility] Comment on above: Performed By: #### C BC #### [facility] [address] [place] [address] Dr. Kali Haynes MONO # 0.4 103/ul Normal 0.3-0.8 [facility] Comment on above: Performed By: #### C BC #### [facility] [address] [place] [address] Dr. Kali Haynes Monocytes/100 WBC (Bld) 6.5 % Normal 1.7-12.0 [facility] Comment on above: Performed By: #### C BC #### [facility] [address] [place] [address] Dr. Kali Haynes NEUT # 2.0 103/ul Normal 1.4-6.5 [facility] Comment on above: Performed By: #### C BC #### [facility] [address] [place] [address] Dr. Kali Haynes Neutrophils/100 WBC (Bld) 30.3 % Critically low 43.0-75.0 [facility] Comment on above: Performed By: #### C BC #### [facility] [address] [place] [address] Dr. Kali Haynes Platelet mean volume (Bld) [Entitic vol] 11.1 fL Normal 9.5-13.5 [facility] Comment on above: Performed By: #### C BC #### [facility] [address] [place] [address] Dr. Kali Haynes PLT 221 103/ul Normal 150-450 [facility] Comment on above: Performed By: #### C BC #### [facility] [address] [place] [address] Dr. Kali Haynes RBC 4.95 106/ul Normal 4.20-5.40 [facility] Comment on above: Performed By: #### C BC #### [facility] [address] [place] [address] Dr. Kali Haynes WBC 6.5 103/ul Normal 4.0-11.0 [facility] Comment on above: Performed By: #### C BC #### [facility] [address] [place] [address] Dr. Kali Haynes LIPID PROFILEon 02-24-2022 CHOL-HDL RATIO NORM SEE BELOW Normal [facility] Comment on above: Result Comment: 3.3 - 4.4 LOW RISK 4.4 - 7.1 AVERAGE RISK 7.1 - 11.0 MODERATE RISK >11.0 HIGH RISK Performed By: #### T SH, BMP, LIPID, ALT #### [facility] [address] [place] [address] [address] Kali Haynes Cholesterol [Mass/Vol] 151 mg/dL Normal <=200 [facility] Comment on above: Performed By: #### T SH, BMP, LIPID, ALT #### [facility] [address] [place] [address] [address] Kali Haynes Cholesterol in HDL [Mass/Vol] 39 mg/dL Critically low 40-60 [facility] Comment on above: Performed By: #### T SH, BMP, LIPID, ALT #### [facility] [address] [place] [address] [address] Kali Haynes Cholesterol in LDL [Mass/Vol] 85.6 mg/dL Normal [facility] Comment on above: Performed By: #### T SH, BMP, LIPID, ALT #### [facility] [address] [place] [address] [address] Kali Haynes Cholesterol.total/C holesterol in HDL [Mass ratio] 3.9 {ratio} Normal [facility] Comment on above: Performed By: #### T SH, BMP, LIPID, ALT #### [facility] [address] [place] [address] [address] Kali Haynes HDL NORMAL > or = 60 mg/dl - LO W CARDIOVASCULAR RISK <40 mg/dl - HIGH CARDIOVASCULAR RISK Normal [facility] Comment on above: Performed By: #### T SH, BMP, LIPID, ALT #### [facility] [address] [place] [address] [address] Kali Haynes LDL CALC NORMAL SEE BELOW Normal [facility] Comment on above: Result Comment: <100 mg/dl OPTIMAL 100 - 129 mg/dl NEAR OR ABOVE OPTIMAL 130 - 159 mg/dl BORDERLINE HIGH 160 - 189 mg/dl HIGH >190 mg/dl VERY HIGH Performed By: #### T SH, BMP, LIPID, ALT #### [facility] [address] [place] [address] [address] Kali Haynes Triglyceride [Mass/Vol] 132 mg/dL Normal <=150 [facility] Comment on above: Performed By: #### T SH, BMP, LIPID, ALT #### [facility] [address] [place] [address] [address] Kali Haynes VLDL CALC 26.4 mg/dL Normal [facility] Comment on above: Performed By: #### T SH, BMP, LIPID, ALT #### [facility] [address] [place] [address] Dr. Kali Haynes PROF CHEM 8 (BAS METB)on Anion gap [Moles/Vol] 12.5 mmol/L Normal [facility] Comment on above: Performed By: #### T SH, BMP, LIPID, ALT #### [facility] [address] [place] [address] Dr. Kali Haynes Calcium [Mass/Vol] 9.4 mg/dL Normal 8.5-10.1 [facility] Comment on above: Performed By: #### T SH, BMP, LIPID, ALT #### [facility] [address] [place] [address] Dr. Kali Haynes Chloride [Moles/Vol] 103 mmol/L Normal 98-107 [facility] Comment on above: Performed By: #### T SH, BMP, LIPID, ALT #### [facility] [address] [place] [address] [address] Kali Haynes CO2 [Moles/Vol] 26.3 mmol/L Normal 21.0-32.0 [facility] Comment on above: Performed By: #### T SH, BMP, LIPID, ALT #### [facility] [address] [place] [address] [address] Kali Haynes Creatinine [Mass/Vol] 0.82 mg/dL Normal 0.55-1.02 [facility] Comment on above: Performed By: #### T SH, BMP, LIPID, ALT #### [facility] [address] [place] [address] Dr. Kali Haynes EGFR-AF MARSHALLESE >60 Normal >=60 [facility] Comment on above: Performed By: #### T SH, BMP, LIPID, ALT #### [facility] [address] [place] [address] [address] Kali Haynes EGFR-NON AF MARSHALLESE >60 Normal >=60 [facility] Comment on above: Performed By: #### T SH, BMP, LIPID, ALT #### [facility] [address] [place] [address] [address] Kali Haynes Glucose [Mass/Vol] 110 mg/dL Critically high 74-[address] [facility] Comment on above: Performed By: #### T SH, BMP, LIPID, ALT #### [facility] [address] [place] [address] Dr. Kali Haynes Potassium [Moles/Vol] 3.8 mmol/L Normal 3.5-5.1 [facility] Comment on above: Performed By: #### T SH, BMP, LIPID, ALT #### [facility] [address] [place] [address] Dr. Kali Haynes Sodium [Moles/Vol] 138 mmol/L Normal 136-145 [facility] Comment on above: Performed By: #### T SH, BMP, LIPID, ALT #### [facility] [address] [place] [address] Dr. Kali Haynes Urea nitrogen [Mass/Vol] 17.0 mg/dL Normal 7.0-18.0 [facility] Comment on above: Performed By: #### T SH, BMP, LIPID, ALT #### [facility] [address] [place] [address] Dr. Kali Haynes Urea nitrogen/Creatinine [Mass ratio] 20.7 mg/mg Normal [facility] Comment on above: Performed By: #### T SH, BMP, LIPID, ALT #### [facility] [address] [place] [address] Dr. Kali Haynes SGPTon 02-24-2022 ALT [Catalytic activity/Vol] 36 U/L Normal 14-59 [facility] Comment on above: Performed By: #### T SH, BMP, LIPID, ALT #### [facility] [address] [place] [address] Dr. Kali Haynes TSHon 02-24-2022 TSH 4.788 uIU/mL Critically high 0.358-3.740 [facility] Comment on above: Performed By: #### T SH, BMP, LIPID, ALT #### [facility] [address] [place] [address] [address] Kali Haynes CBC AUTO DIFFon 08-21-2021 BASO # 0.0 103/ul Normal 0.0-0.1 [facility] Comment on above: Performed By: #### C BC #### [facility] [address] [place] [address] [address] Kali Haynes Basophils/100 WBC (Bld) 0.5 % Normal 0.2-2.0 [facility] Comment on above: Performed By: #### C BC #### [facility] [address] [place] [address] [address] Kali Haynes EO # 0.2 103/ul Normal 0.0-0.7 [facility] Comment on above: Performed By: #### C BC #### [facility] [address] [place] [address] [address] Kali Haynes Eosinophils/100 WBC (Bld) 2.6 % Normal 0.9-7.0 [facility] Comment on above: Performed By: #### C BC #### [facility] [address] [place] [address] [address] Kali Haynes Erythrocyte distribution width (RBC) [Ratio] 14.4 % Normal 11.0-15.0 [facility] Comment on above: Performed By: #### C BC #### [facility] [address] [place] [address] [address] Kali Haynes Hematocrit (Bld) [Volume fraction] 40.4 % Normal 36.0-48.0 [facility] Comment on above: Performed By: #### C BC #### [facility] [address] [place] [address] [address] Kali Haynes Hemoglobin (Bld) [Mass/Vol] 13.3 g/dL Normal 12.0-16.0 [facility] Comment on above: Performed By: #### C BC #### [facility] [address] [place] [address] [address] Kali Haynes IG # 0.01 10e3/ul Normal 0.00-0.03 [facility] Comment on above: Performed By: #### C BC #### [facility] [address] [place] [address] Dr. Kali Haynes IG % 0.2 % Normal 0.0-0.5 [facility] Comment on above: Performed By: #### C BC #### [facility] [address] [place] [address] Dr. Kali Haynes LYMPH # 3.0 103/ul Normal 1.2-3.8 [facility] Comment on above: Performed By: #### C BC #### [facility] [address] [place] [address] Dr. Kali Haynes Lymphocytes/100 WBC (Bld) 48.6 % Normal 20.5-60.0 [facility] Comment on above: Performed By: #### C BC #### [facility] [address] [place] [address] Dr. Kali Haynes MANUAL DIFF REQ NO Normal [facility] Comment on above: Performed By: #### C BC #### [facility] [address] [place] [address] Dr. Kali Haynes MCH (RBC) [Entitic mass] 29.0 pg Normal 26.7-34.0 [facility] Comment on above: Performed By: #### C BC #### [facility] [address] [place] [address] Dr. Kali Haynes MCHC (RBC) [Mass/Vol] 32.9 g/dL Normal 29.9-35.2 [facility] Comment on above: Performed By: #### C BC #### [facility] [address] [place] [address] Dr. Kali Haynes MCV (RBC) [Entitic vol] 88.0 fL Normal 81.0-99.0 [facility] Comment on above: Performed By: #### C BC #### [facility] [address] [place] [address] Dr. Kali Haynes MONO # 0.5 103/ul Normal 0.3-0.8 [facility] Comment on above: Performed By: #### C BC #### [facility] [address] [place] [address] Dr. Kali Haynes Monocytes/100 WBC (Bld) 7.4 % Normal 1.7-12.0 [facility] Comment on above: Performed By: #### C BC #### [facility] [address] [place] [address] [address] Kali Haynes NEUT # 2.5 103/ul Normal 1.4-6.5 [facility] Comment on above: Performed By: #### C BC #### [facility] [address] [place] [address] Dr. Kali Haynes Neutrophils/100 WBC (Bld) 40.7 % Critically low 43.0-75.0 [facility] Comment on above: Performed By: #### C BC #### [facility] [address] [place] [address] Dr. Kali Haynes Platelet mean volume (Bld) [Entitic vol] 11.3 fL Normal 9.5-13.5 [facility] Comment on above: Performed By: #### C BC #### [facility] [address] [place] [address] Dr. Kali Haynes PLT 218 103/ul Normal 150-450 [facility] Comment on above: Performed By: #### C BC #### [facility] [address] [place] [address] Dr. Kali Haynes RBC 4.59 106/ul Normal 4.20-5.40 [facility] Comment on above: Performed By: #### C BC #### [facility] [address] [place] [address] Dr. Kali Haynes WBC 6.2 103/ul Normal 4.0-11.0 [facility] Comment on above: Performed By: #### C BC #### [facility] [address] [place] [address] Dr. Kali Haynes Basic Metab w/rfx MGon 10-12 (cont.) Normal [facility] Comment on above: Result Comment: Aver age GFR for 60-69 years old: 85 mL/min/1.73sq m Chronic Kidney Disease: <60 mL/min/1.73sq m Kidney failure: <15 mL/min/1.73sq m eGFR calculated using average adult body mass. Additional eGFR calculator available at: http://www.[employer].Applyful/multiple_crcl_2012.htm Performed By: #### C DP, BMPX #### [place] [address] [employer] Supervisor: Antonio Vázquez MD Anion gap [Moles/Vol] 11 mmol/L Normal 9-17 [facility] Comment on above: Performed By: #### C DP, BMPX #### [place] [address] [employer] Supervisor: Antonio Vázquez MD Calcium [Mass/Vol] 9.0 mg/dL Normal 8.6-10.4 [facility] Comment on above: Performed By: #### C DP, BMPX #### [place] [address] [employer] Supervisor: Antonio Vázquez MD Chloride [Moles/Vol] 99 mmol/L Normal 98-107 [facility] Comment on above: Performed By: #### C DP, BMPX #### [place] [address] [employer] Supervisor: Antonio Vázquez MD CO2 [Moles/Vol] 21 mmol/L Normal 20-31 [facility] Comment on above: Performed By: #### C DP, BMPX #### [place] [address] [employer] Supervisor: Antonio Vázquez MD Creatinine [Mass/Vol] 0.63 mg/dL Normal 0.50-0.90 [facility] Comment on above: Performed By: #### C DP, BMPX #### [address] [address] [employer] Supervisor: Antonio Vázquez MD GFR, Amer >60 Normal >60 [facility] Comment on above: Performed By: #### C DP, BMPX #### [place] [address] [employer] Supervisor: Antonio Vázquez MD GFR,non Amer >60 Normal >60 [facility] Comment on above: Performed By: #### C DP, BMPX #### [place] [address] [employer] Supervisor: Antonio Vázquez MD Glucose [Mass/Vol] 132 mg/dL High 70-99 [facility] Comment on above: Performed By: #### C DP, BMPX #### [place] [address] [employer] Supervisor: Antonio Vázquez MD Potassium [Moles/Vol] 3.7 mmol/L Normal 3.7-5.3 [facility] Comment on above: Performed By: #### C DP, BMPX #### [place] [address] [employer] Supervisor: Antonio Vázquez MD Sodium [Moles/Vol] 131 mmol/L Low 135-144 [facility] Comment on above: Performed By: #### C DP, BMPX #### [place] [address] [employer] Supervisor: Antonio Vázquez MD Urea nitrogen [Mass/Vol] 13 mg/dL Normal 8-23 [facility] Comment on above: Performed By: #### C DP, BMPX #### [place] [address] [employer] Supervisor: Antonio Vázquez MD BUN/CRE Ratio NOT REPORTED Normal 9-20 [facility] Comment on above: Performed By: #### C DP, BMPX #### [place] [address] [employer] Supervisor: Antonio Vázquez MD Staging: NOT REPORTED Normal [facility] Comment on above: Performed By: #### C DP, BMPX #### [place] [address] [employer] Supervisor: Antonio Vázquez MD CBC with Diffon 10-12-2020 Abs. Basophil 0.10 k/uL Normal 0.0-0.2 [facility] Comment on above: Performed By: #### C DP, BMPX #### [place] [address] [employer] Supervisor: Antonio Vázquez MD Abs.Neutrophil (Seg) 6.20 k/uL Normal 1.8-7.7 [facility] Comment on above: Performed By: #### C DP, BMPX #### [place] [address] [employer] Supervisor: Antonio Vázquez MD Basophils/100 WBC (Bld) 1 % Normal 0-2 [facility] Comment on above: Performed By: #### C DP, BMPX #### [place] [address] [employer] Supervisor: Antonio Vázquez MD Eosinophils (Bld) [#/Vol] 0.00 10*3/uL Normal 0.0-0.4 [facility] Comment on above: Performed By: #### C DP, BMPX #### [facility] [id number] [place] [address] [employer] Supervisor: Antonio Vázquez MD Eosinophils/100 WBC (Bld) 0 % Low 1-4 [facility] Comment on above: Performed By: #### C DP, BMPX #### [place] [address] [employer] Supervisor: Antonio Vázquez MD Erythrocyte distribution width (RBC) [Ratio] 14.0 % Normal 12.5-15.4 [facility] Comment on above: Performed By: #### C DP, BMPX #### [place] [address] [employer] Supervisor: Antonio Vázquez MD Hematocrit (Bld) [Volume fraction] 34.5 % Low 36-46 [facility] Comment on above: Performed By: #### C DP, BMPX #### [place] [address] [employer] Supervisor: Antonio Vázquez MD Hemoglobin (Bld) [Mass/Vol] 11.3 g/dL Low 12.0-16.0 [facility] Comment on above: Performed By: #### C DP, BMPX #### [place] [address] [employer] Supervisor: Antonio Vázquez MD Lymphocytes (Bld) [#/Vol] 4.10 10*3/uL Normal 1.0-4.8 [facility] Comment on above: Performed By: #### C DP, BMPX #### [place] [address] [employer] Supervisor: Antonio Vázquez MD Lymphocytes/100 WBC (Bld) 38 % Normal 24-44 [facility] Comment on above: Performed By: #### C DP, BMPX #### [place] [address] [employer] Supervisor: Antonio Vázquez MD MCH (RBC) [Entitic mass] 29.7 pg Normal 26-34 [facility] Comment on above: Performed By: #### C DP, BMPX #### [place] [address] [employer] Supervisor: Antonio Vázquez MD MCHC (RBC) [Mass/Vol] 32.9 g/dL Normal 31-37 [facility] Comment on above: Performed By: #### C DP, BMPX #### [place] [address] [employer] Supervisor: Antonio Vázquez MD MCV (RBC) [Entitic vol] 90.4 fL Normal 80-100 [facility] Comment on above: Performed By: #### C DP, BMPX #### [place] [address] [employer] Supervisor: Antonio Vázquez MD Monocytes (Bld) [#/Vol] 0.50 10*3/uL Normal 0.1-1.2 [facility] Comment on above: Performed By: #### C DP, BMPX #### [place] [address] [employer] Supervisor: Antonio Vázquez MD Monocytes/100 WBC (Bld) 5 % Normal 2-11 [facility] Comment on above: Performed By: #### C DP, BMPX #### [place] [address] [employer] Supervisor: Antonio Vázquez MD Neutrophil (Seg) 56 % Normal 36-66 [facility] Comment on above: Performed By: #### C DP, BMPX #### [place] [address] [employer] Supervisor: Antonio Vázquez MD Platelet mean volume (Bld) [Entitic vol] 9.6 fL Normal 6.0-12.0 [facility] [facility] Comment on above: Performed By: #### C DP, BMPX #### [place] [address] [employer] Supervisor: Antonio Vázquez MD Platelets (Bld) [#/Vol] 172 10*3/uL Normal 140-450 [facility] Comment on above: Performed By: #### C DP, BMPX #### [place] [address] [employer] Supervisor: Antonio Vázquez MD RBC (Bld) [#/Vol] 3.81 10*6/uL Low 4.0-5.2 [facility] Comment on above: Performed By: #### C DP, BMPX #### [place] [address] [employer] Supervisor: Antonio Vázquez MD WBC (Bld) [#/Vol] 11.0 10*3/uL Normal 3.5-11.0 [facility] Comment on above: Performed By: #### C DP, BMPX #### [place] [address] [employer] Supervisor: Antonio Vázquez MD Abs.Imm.Granulocyte NOT REPORTED Normal 0.00-0.30 [facility] Comment on above: Performed By: #### C DP, BMPX #### [place] [address] [employer] Supervisor: Antonio Vázquez MD Auto Diff Performed NOT REPORTED Normal [facility] Comment on above: Performed By: #### C DP, BMPX #### [place] [address] [employer] Supervisor: Antonio Vázquez MD Immature Granulocyte NOT REPORTED Normal 0 [facility] Comment on above: Performed By: #### C DP, BMPX #### [place] [address] [employer] Supervisor: Atnonio Vázquez MD NRBC Automated NOT REPORTED Normal [facility] Comment on above: Performed By: #### C DP, BMPX #### [place] [address] [employer] Supervisor: Antonio Vázquez MD Platelet Estimate NOT REPORTED Normal [facility] Comment on above: Performed By: #### C DP, BMPX #### [place] [address] [employer] Supervisor: Antonio Vázquez MD RBC morphology finding Nom (Bld) NOT REPORTED Normal [facility] Comment on above: Performed By: #### C DP, BMPX #### [place] [address] [employer] Supervisor: Antonio Vázquez MD WBC Morphology NOT REPORTED Normal [facility] Comment on above: Performed By: #### C DP, BMPX #### [place] [address] [employer] Supervisor: Antonio Vázquez MD OPERATIVE REPORTon OPERATIVE REPORT [address] [id number] OPERATIVE REPORT PATIENT NAME: EPI DAILEY : 1950 MED REC NO: [id number] ROOM: [facility] ACCOUNT NO: [id number] ADMIT DATE: 10/11/2020 PROVIDER: Stevie Hopper DATE [...] fashion in the dorsal lithotomy position in [facility], confirmed to be neutrally positioned by [...] vaginal mucosa was then closed in a mjqeyx-ml-bcbgf mucosal-mucosal fashion, incorporating the angles and uterosacral [...] time with the Awan catheter. Cystourethroscopy with 17-Samoan 30-degree cystourethroscope confirmed bilateral ureteral patency and Pyridium-stained urine out of the ureters with the Lasix challenge. There was no intravesical or intraurethral passage of sling trocars. The sling with sheath was then attached to the trocars (more content not included)... Normal [facility] Surgical Pathologyon 021 Surgical Pathology (NOTE) -- [...] second tube and ovary 4 grams. Serosa: [place]-ho. Cervix: 4.3 x 3.5 x 3.4 cm, [...] cm in aggregate. No masses are seen. Nurse Executive sections 1cs. tm Microscopic Description 1, 2. Microscopic examination performed. SURGICAL PATHOLOGY CONSULTATION Patient Name: EPI DAILEY [facility] Rec: [id number] Path Number: [id number] [facility] CONSULTING PATHOLOGISTS [facility] ANATOMIC PATHOLOGY [address] [place] [id number] [facility] Comment on above: Performed By: #### P PPVS #### [address] [address] [employer] Supervisor: Matthew España MD Type + Screenon 10-11-2020 Type + Screen Sample Expiration 10/14/2020,2359 Arm Band Number BE [id number] ABO/Rh(D) B POSITIVE Antibody Screen NEGATIVE [facility] Comment on above: Performed By: #### T YS #### [address] [id number] [employer] Supervisor: Antonio Vázquez MD Auth for Release of Medical Recordson 03-30-2020 Auth for Release of Medical Records [id number] 0CD:127 [facility] Auth for Release of Medical Records [id number] 0CD:127 [facility] Retail - Clinical Noteon Retail - Clinical Note [id number] CD:127 Normal [facility] BASIC METABOLIC PANELon 08-2 Calcium [Mass/Vol] 9.4 mg/dL Normal 8.6-10.3 [facility] Comment on above: Order Comment: No: D o not add to previous draw Performed By: #### 0 0071, 92417, 81316 #### [facility] [address] [place] [address], [place] Chloride [Moles/Vol] 102 mmol/L Normal 98-107 [facility] Comment on above: Order Comment: No: D o not add to previous draw Performed By: #### 0 0071, 95115, 70873 #### [facility] [address] [place] [address], [place] CO2 [Moles/Vol] 27 mmol/L Normal 21-31 [facility] Comment on above: Order Comment: No: D o not add to previous draw Performed By: #### 0 0071, 00907, 68244 #### [facility] [address] [place] [address], [place] Creatinine [Mass/Vol] 0.63 mg/dL Normal 0.60-1.20 [facility] Comment on above: Order Comment: No: D o not add to previous draw Performed By: #### 0 0071, 25738, 37257 #### [facility] [address] [place] [address], [place] GFR/1.73 sq M predicted among blacks MDRD (S/P/Bld) [Vol rate/Area] mL/min/{1.73_m2} Normal >60 [facility] Comment on above: Order Comment: No: D o not add to previous draw Performed By: #### 0 0071, 73109, 72719 #### [facility] [address] [place] [address], [place] GFR/1.73 sq M predicted among non-blacks MDRD (S/P/Bld) [Vol rate/Area] mL/min/{1.73_m2} Normal >60 [facility] Comment on above: Order Comment: No: D o not add to previous draw Performed By: #### 0 0071, 07785, 79430 #### [facility] [address] [place] [address], [place] Glucose [Mass/Vol] 129 mg/dL High 70-100 [facility] Comment on above: Order Comment: No: D o not add to previous draw Performed By: #### 0 0071, 07070, 35218 #### [facility] [address] [place] [address], [facility] Potassium [Moles/Vol] 3.2 mmol/L Low 3.5-5.1 [facility] Comment on above: Order Comment: No: D o not add to previous draw Performed By: #### 0 0071, 59635, 20628 #### [facility] [address] [place] [address], [place] Sodium [Moles/Vol] 137 mmol/L Normal 136-145 [facility] Comment on above: Order Comment: No: D o not add to previous draw Performed By: #### 0 0071, 98317, 95742 #### [facility] [address] [place] [address], [place] Urea nitrogen [Mass/Vol] 11 mg/dL Normal 7-25 [facility] Comment on above: Order Comment: No: D o not add to previous draw Performed By: #### 0 0071, 17430, 49301 #### [facility] [address] [place] [address], [facility] CBC COMPLETE BLOOD COUNTon 0 11-16-2018 Erythrocyte distribution width (RBC) [Ratio] 15.2 % High 11.5-15.0 [facility] Comment on above: Order Comment: No: D o not add to previous draw Performed By: #### 0 0071, 43063, 91207 #### [facility] [address] [place] [address], [facility] Hematocrit (Bld) [Volume fraction] 37.7 % Normal 36.0-45.0 [facility] Comment on above: Order Comment: No: D o not add to previous draw Performed By: #### 0 0071, 04023, 76975 #### [facility] [address] [place] [address], [facility] Hemoglobin (Bld) [Mass/Vol] 12.7 g/dL Normal 12.0-15.0 [facility] Comment on above: Order Comment: No: D o not add to previous draw Performed By: #### 0 0071, 10451, 69982 #### [facility] [address] [place] [address], [facility] MCH (RBC) [Entitic mass] 28.7 pg Normal 27.0-33.0 [facility] Comment on above: Order Comment: No: D o not add to previous draw Performed By: #### 0 0071, 90498, 03550 #### [facility] [address] [place] [address], [facility] MCHC (RBC) [Mass/Vol] 33.7 g/dL Normal 32.0-35.0 [facility] Comment on above: Order Comment: No: D o not add to previous draw Performed By: #### 0 0071, 73792, 65140 #### [facility] [address] [place] [address], [place] MCV (RBC) [Entitic vol] 85.1 fL Normal 82.0-98.0 [facility] Comment on above: Order Comment: No: D o not add to previous draw Performed By: #### 0 0071, 61816, 25828 #### [facility] [address] [place] [address], [place] Nucleated RBC/100 WBC (Bld) [Ratio] 0 % Normal 0-0 [facility] Comment on above: Order Comment: No: D o not add to previous draw Performed By: #### 0 0071, 69739, 61383 #### [facility] [address] [facility] [place] [address], [facility] PLAT CNT 237 10*3/uL Normal 150-400 [facility] Comment on above: Order Comment: No: D o not add to previous draw Performed By: #### 0 0071, 58358, 71221 #### [facility] [address] [facility] [place] [address], [facility] RBC (Bld) [#/Vol] 4.43 10*6/uL Normal 3.80-5.00 [facility] Comment on above: Order Comment: No: D o not add to previous draw Performed By: #### 0 0071, 42964, 32308 #### [facility] [address] [facility] [place] [address], [facility] WBC (Bld) [#/Vol] 10.34 10*3/uL Normal 4.00-10.60 [facility] Comment on above: Order Comment: No: D o not add to previous draw Performed By: #### 0 0071, 78550, 50281 #### [facility] [address] [facility]. [address] Cardiovascular Lab Reporton 11-16-2018 Cardiovascular Lab Report [facility] Patient Name: [facility] Epi MR #: [id number] Department of Physician: Isaura Ching M.D. Division of Service Date: 11/15/2018 Cardiology Birthdate: 1950 Adult Cardiovascular Room #: 3AB [address] [place] [address] Cardiovascular Laboratory Report FINAL IMPRESSIONS: 1. Mild [...] is most consistent with a type 2 bun-OM-sszbsdgpf myocardial infarction/supply-jim nd mismatch. This does not represent an acute coronary syndrome and the patient does not require dual antiplatelet therapy. 2. Aggressive cardiovascular risk factor modification. 3. Optimization of medical management; given plaque disease, aspirin, ffbqohrp-jk-ybne intensity statin therapy, a beta mar. If [...] right internal jugular vein was obtained. A 6-Samoan 11 cm sheath was inserted without difficulty. [...] to access the right radial artery. A 6-Samoan Glidesheath was inserted without difficulty. Bilateral selective [...] Camilo M.D. Date Trans: 11/16/2018 09:01 Tressa/alisa [id number] Normal [facility] LIVER BATTERYon 11-16-2018 Albumin [Mass/Vol] 3.6 g/dL Normal 3.5-5.7 [facility] Comment on above: Order Comment: No: D o not add to previous draw Performed By: #### 0 0071, 33477, 52709 #### [facility] [address] [place] [address], [place] ALKALINE PHOSPH 54 IU/L Normal 34-104 [facility] Comment on above: Order Comment: No: D o not add to previous draw Performed By: #### 0 0071, 80253, 35733 #### [facility] [address] [place] [address], [place] ALT [Catalytic activity/Vol] 63 U/L High 7-52 [facility] Comment on above: Order Comment: No: D o not add to previous draw Performed By: #### 0 0071, 42019, 89542 #### [facility] [address] [place] [address], [place] AST [Catalytic activity/Vol] 19 U/L Normal 13-39 [facility] Comment on above: Order Comment: No: D o not add to previous draw Performed By: #### 0 0071, 92297, 17802 #### [facility] [address] [place] [address], [place] Bilirubin [Mass/Vol] 0.5 mg/dL Normal 0.3-1.0 [facility] Comment on above: Order Comment: No: D o not add to previous draw Performed By: #### 0 0071, 02929, 90677 #### [facility] [address] [place] [address], [place] Bilirubin.direct [Mass/Vol] 0.1 mg/dL Normal 0.0-0.2 [facility] Comment on above: Order Comment: No: D o not add to previous draw Performed By: #### 0 0071, 18976, 99354 #### [facility] [address] [place] [address], [place] Protein [Mass/Vol] 6.5 g/dL Normal 6.0-8.3 [facility] Comment on above: Order Comment: No: D o not add to previous draw Performed By: #### 0 0071, 02954, 57379 #### [facility] [address] [place] [address], [facility] MAGNESIUM BLOODon 11-16-2018 Magnesium [Mass/Vol] 1.8 mg/dL Low 1.9-2.7 [facility] Comment on above: Order Comment: No: D o not add to previous draw Performed By: #### 0 0071, 53940, 76711 #### [facility] [address] [place] [address], [facility] PHOSPHORUS BLOODon 9 Phosphate [Mass/Vol] 3.1 mg/dL Normal 2.5-5.0 [facility] Comment on above: Order Comment: No: D o not add to previous draw Performed By: #### 0 0071, 03797, 33743 #### [facility] [address] [place] [address], [facility] BASIC METABOLIC PANELon 10-22 Calcium [Mass/Vol] 9.0 mg/dL Normal 8.6-10.3 [facility] Comment on above: Order Comment: No: D o not add to previous draw Performed By: #### 0 0071, 87283, 92955 #### [facility] [address] [place] [address], [facility] Chloride [Moles/Vol] 103 mmol/L Normal 98-107 [facility] Comment on above: Order Comment: No: D o not add to previous draw Performed By: #### 0 0071, 68157, 76927 #### [facility] [address] [place] [address], [place] CO2 [Moles/Vol] 25 mmol/L Normal 21-31 [facility] Comment on above: Order Comment: No: D o not add to previous draw Performed By: #### 0 0071, 74957, 07259 #### [facility] [address] [place] [address], [place] Creatinine [Mass/Vol] 0.65 mg/dL Normal 0.60-1.20 [facility] Comment on above: Order Comment: No: D o not add to previous draw Performed By: #### 0 0071, 55482, 03633 #### [facility] [address] [place] [address], [place] GFR/1.73 sq M predicted among blacks MDRD (S/P/Bld) [Vol rate/Area] mL/min/{1.73_m2} Normal >60 [facility] Comment on above: Order Comment: No: D o not add to previous draw Performed By: #### 0 0071, 19578, 81577 #### [facility] [address] [place] [address], [place] GFR/1.73 sq M predicted among non-blacks MDRD (S/P/Bld) [Vol rate/Area] mL/min/{1.73_m2} Normal >60 [facility] Comment on above: Order Comment: No: D o not add to previous draw Performed By: #### 0 0071, 76436, 98647 #### [facility] [address] [place] [address], [place] Glucose [Mass/Vol] 192 mg/dL High 70-100 [facility] Comment on above: Order Comment: No: D o not add to previous draw Performed By: #### 0 0071, 90425, 06626 #### [facility] [address] [place] [address], [place] Potassium [Moles/Vol] 3.0 mmol/L Low 3.5-5.1 [facility] Comment on above: Order Comment: No: D o not add to previous draw Performed By: #### 0 0071, 08642, 75670 #### [facility] [address] [place] [address], [place] Sodium [Moles/Vol] 138 mmol/L Normal 136-145 [facility] Comment on above: Order Comment: No: D o not add to previous draw Performed By: #### 0 0071, 75169, 20029 #### [facility] [address] [place] [address], [place] Urea nitrogen [Mass/Vol] 10 mg/dL Normal 7-25 [facility] Comment on above: Order Comment: No: D o not add to previous draw Performed By: #### 0 0071, 27054, 39366 #### [facility] [address] [place] [address], [place] LIVER BATTERYon 11-15-2018 Albumin [Mass/Vol] 3.3 g/dL Low 3.5-5.7 [facility] Comment on above: Order Comment: No: D o not add to previous draw Performed By: #### 0 0071, 66135, 89761 #### [facility] [address] [place] [address], [place] ALKALINE PHOSPH 51 IU/L Normal 34-104 [facility] Comment on above: Order Comment: No: D o not add to previous draw Performed By: #### 0 0071, 86795, 86970 #### [facility] [address] [place] [address], [place] ALT [Catalytic activity/Vol] 70 U/L High 7-52 [facility] Comment on above: Order Comment: No: D o not add to previous draw Performed By: #### 0 0071, 48670, 93247 #### [facility] [address] [place] [address], [place] AST [Catalytic activity/Vol] 22 U/L Normal 13-39 [facility] Comment on above: Order Comment: No: D o not add to previous draw Performed By: #### 0 0071, 20854, 02930 #### [facility] [address] [place] [address], [place] Bilirubin [Mass/Vol] 0.4 mg/dL Normal 0.3-1.0 [facility] Comment on above: Order Comment: No: D o not add to previous draw Performed By: #### 0 0071, 12758, 44846 #### [facility] [address] Bilirubin.direct [Mass/Vol] 0.1 mg/dL Normal 0.0-0.2 [facility] Comment on above: Order Comment: No: D o not add to previous draw Performed By: #### 0 0071, 76522, 21082 #### [facility] [address] [facility]. [address] Protein [Mass/Vol] 6.2 g/dL Normal 6.0-8.3 [facility] Comment on above: Order Comment: No: D o not add to previous draw Performed By: #### 0 0071, 70611, 27252 #### [facility] [address] UFH HEPARIN ASSAYon 11-16-19 19 UNFRACTIONATED HEPARIN 0.71 IU/mL High 0.30-0.70 [facility] Comment on above: Result Comment: Dora roxaban and Apixaban will interfere with the anti Xa assay used to monitor UFH and LMWH. Performed By: #### 3 0965 #### [facility] [address] BASIC METABOLIC PANELon 10-22 Calcium [Mass/Vol] 8.9 mg/dL Normal 8.6-10.3 [facility] Comment on above: Order Comment: No: D o not add to previous draw Criteria for reflexing a culture was not met. Please call the lab at [phone] within 24 hours of collection time if culture is needed Performed By: #### 3 0965 #### [facility] [address] Chloride [Moles/Vol] 105 mmol/L Normal 98-107 [facility] Comment on above: Order Comment: No: D o not add to previous draw Criteria for reflexing a culture was not met. Please call the lab at [phone] within 24 hours of collection time if culture is needed Performed By: #### 3 0965 #### [facility] [address] [place] [address], [facility] CO2 [Moles/Vol] 25 mmol/L Normal 21-31 [facility] Comment on above: Order Comment: No: D o not add to previous draw Criteria for reflexing a culture was not met. Please call the lab at [phone] within 24 hours of collection time if culture is needed Performed By: #### 3 0965 #### [facility] [address] [place] [address], [facility] Creatinine [Mass/Vol] 0.64 mg/dL Normal 0.60-1.20 [facility] Comment on above: Order Comment: No: D o not add to previous draw Criteria for reflexing a culture was not met. Please call the lab at [phone] within 24 hours of collection time if culture is needed Performed By: #### 3 0965 #### [facility] [address] [facility] [place] [address], [facility] GFR/1.73 sq M predicted among blacks MDRD (S/P/Bld) [Vol rate/Area] mL/min/{1.73_m2} Normal >60 [facility] Comment on above: Order Comment: No: D o not add to previous draw Criteria for reflexing a culture was not met. Please call the lab at [phone] within 24 hours of collection time if culture is needed Performed By: #### 3 0965 #### [facility] [address] [facility] [place] [address], [facility] GFR/1.73 sq M predicted among non-blacks MDRD (S/P/Bld) [Vol rate/Area] mL/min/{1.73_m2} Normal >60 [facility] Comment on above: Order Comment: No: D o not add to previous draw Criteria for reflexing a culture was not met. Please call the lab at [phone] within 24 hours of collection time if culture is needed Performed By: #### 3 0965 #### [facility] [address] [facility] [place] [address], [facility] Glucose [Mass/Vol] 129 mg/dL High 70-100 [facility] Comment on above: Order Comment: No: D o not add to previous draw Criteria for reflexing a culture was not met. Please call the lab at [phone] within 24 hours of collection time if culture is needed Performed By: #### 3 0965 #### [facility] [address] [place] [address], [facility] Potassium [Moles/Vol] 3.6 mmol/L Normal 3.5-5.1 [facility] Comment on above: Order Comment: No: D o not add to previous draw Criteria for reflexing a culture was not met. Please call the lab at [phone] within 24 hours of collection time if culture is needed Performed By: #### 3 0965 #### [facility] [address] Sodium [Moles/Vol] 137 mmol/L Normal 136-145 [facility] Comment on above: Order Comment: No: D o not add to previous draw Criteria for reflexing a culture was not met. Please call the lab at [phone] within 24 hours of collection time if culture is needed Performed By: #### 3 0965 #### [facility] [address] Urea nitrogen [Mass/Vol] 11 mg/dL Normal 7-25 [facility] Comment on above: Order Comment: No: D o not add to previous draw Criteria for reflexing a culture was not met. Please call the lab at [phone] within 24 hours of collection time if culture is needed Performed By: #### 3 0965 #### [facility] [address] [place] [address], [facility] CBC W/DIFFon 11-14-2018 ABS BASOPHILS 0.0 10*3/uL Normal 0.0-0.2 [facility] Comment on above: Order Comment: No: D o not add to previous draw Criteria for reflexing a culture was not met. Please call the lab at [phone] within 24 hours of collection time if culture is needed Performed By: #### 3 0965 #### [facility] [address] ABS IMM GRANS 0.0 10*3/uL Normal 0.0-0.2 [facility] Comment on above: Order Comment: No: D o not add to previous draw Criteria for reflexing a culture was not met. Please call the lab at [phone] within 24 hours of collection time if culture is needed Performed By: #### 3 0965 #### [facility] [address] ABS NEUTROPHILS 5.0 10*3/uL Normal 1.6-7.6 [facility] Comment on above: Order Comment: No: D o not add to previous draw Criteria for reflexing a culture was not met. Please call the lab at [phone] within 24 hours of collection time if culture is needed Performed By: #### 3 0965 #### [facility] [address] Basophils/100 WBC (Bld) 0.1 % Normal 0.0-1.0 [facility] Comment on above: Order Comment: No: D o not add to previous draw Criteria for reflexing a culture was not met. Please call the lab at [phone] within 24 hours of collection time if culture is needed Performed By: #### 3 0965 #### [facility] [address] [place] [address], [facility] Eosinophils (Bld) [#/Vol] 0.2 10*3/uL Normal 0.0-0.5 [facility] Comment on above: Order Comment: No: D o not add to previous draw Criteria for reflexing a culture was not met. Please call the lab at [phone] within 24 hours of collection time if culture is needed Performed By: #### 3 0965 #### [facility] [address] [place] [address], [facility] Eosinophils/100 WBC (Bld) 1.8 % Normal 0.0-6.0 [facility] Comment on above: Order Comment: No: D o not add to previous draw Criteria for reflexing a culture was not met. Please call the lab at [phone] within 24 hours of collection time if culture is needed Performed By: #### 3 0965 #### [facility] [address] Erythrocyte distribution width (RBC) [Ratio] 15.9 % High 11.5-15.0 [facility] Comment on above: Order Comment: No: D o not add to previous draw Criteria for reflexing a culture was not met. Please call the lab at [phone] within 24 hours of collection time if culture is needed Performed By: #### 3 0965 #### [facility] [address] Hematocrit (Bld) [Volume fraction] 36.8 % Normal 36.0-45.0 [facility] Comment on above: Order Comment: No: D o not add to previous draw Criteria for reflexing a culture was not met. Please call the lab at 7668 within 24 hours of collection time if culture is needed Performed By: #### 3 0965 #### [facility] [address] Hemoglobin (Bld) [Mass/Vol] 12.1 g/dL Normal 12.0-15.0 [facility] Comment on above: Order Comment: No: D o not add to previous draw Criteria for reflexing a culture was not met. Please call the lab at 7668 within 24 hours of collection time if culture is needed Performed By: #### 3 0965 #### [facility] [address] [place] [address], [facility] IMMATURE GRANS 0.4 % Normal 0.0-1.0 [facility] Comment on above: Order Comment: No: D o not add to previous draw Criteria for reflexing a culture was not met. Please call the lab at 7668 within 24 hours of collection time if culture is needed Performed By: #### 3 0965 #### [facility] [address] [place] [address], [facility] Lymphocytes (Bld) [#/Vol] 4.7 10*3/uL High 1.2-4.0 [facility] Comment on above: Order Comment: No: D o not add to previous draw Criteria for reflexing a culture was not met. Please call the lab at 7668 within 24 hours of collection time if culture is needed Performed By: #### 3 0965 #### [facility] [address] [place] [address], [facility] Lymphocytes/100 WBC (Bld) 45.2 % High 20.0-45.0 [facility] Comment on above: Order Comment: No: D o not add to previous draw Criteria for reflexing a culture was not met. Please call the lab at 7668 within 24 hours of collection time if culture is needed Performed By: #### 3 0965 #### [facility] [address] [facility] [place] [address], [facility] MCH (RBC) [Entitic mass] 28.7 pg Normal 27.0-33.0 [facility] Comment on above: Order Comment: No: D o not add to previous draw Criteria for reflexing a culture was not met. Please call the lab at [phone] within 24 hours of collection time if culture is needed Performed By: #### 3 0965 #### [facility] [address] [facility] [place] [address], [facility] MCHC (RBC) [Mass/Vol] 32.9 g/dL Normal 32.0-35.0 [facility] Comment on above: Order Comment: No: D o not add to previous draw Criteria for reflexing a culture was not met. Please call the lab at [phone] within 24 hours of collection time if culture is needed Performed By: #### 3 0965 #### [facility] [address] [place] [address], [facility] MCV (RBC) [Entitic vol] 87.2 fL Normal 82.0-98.0 [facility] Comment on above: Order Comment: No: D o not add to previous draw Criteria for reflexing a culture was not met. Please call the lab at [phone] within 24 hours of collection time if culture is needed Performed By: #### 3 0965 #### [facility] [address] [place] [address], [facility] Monocytes (Bld) [#/Vol] 0.5 10*3/uL Normal 0.1-1.0 [facility] Comment on above: Order Comment: No: D o not add to previous draw Criteria for reflexing a culture was not met. Please call the lab at 7668 within 24 hours of collection time if culture is needed Performed By: #### 3 0965 #### [facility] [address] [place] [address], [place] MONOS 4.5 % Low 5.0-12.0 [facility] Comment on above: Order Comment: No: D o not add to previous draw Criteria for reflexing a culture was not met. Please call the lab at [phone] within 24 hours of collection time if culture is needed Performed By: #### 3 0965 #### [facility] [address] [place] [address], [facility] Neutrophils/100 WBC (Bld) 48.0 % Normal 40.0-72.0 [facility] Comment on above: Order Comment: No: D o not add to previous draw Criteria for reflexing a culture was not met. Please call the lab at 7668 within 24 hours of collection time if culture is needed Performed By: #### 3 0965 #### [facility] [address] [place] [address], [facility] Nucleated RBC/100 WBC (Bld) [Ratio] 0 % Normal 0-0 [facility] Comment on above: Order Comment: No: D o not add to previous draw Criteria for reflexing a culture was not met. Please call the lab at [phone] within 24 hours of collection time if culture is needed Performed By: #### 3 0965 #### [facility] [address] [place] [address], [facility] PLAT CNT 193 10*3/uL Normal 150-400 [facility] Comment on above: Order Comment: No: D o not add to previous draw Criteria for reflexing a culture was not met. Please call the lab at [phone] within 24 hours of collection time if culture is needed Performed By: #### 3 0965 #### [facility] [address] RBC (Bld) [#/Vol] 4.22 10*6/uL Normal 3.80-5.00 [facility] Comment on above: Order Comment: No: D o not add to previous draw Criteria for reflexing a culture was not met. Please call the lab at [phone] within 24 hours of collection time if culture is needed Performed By: #### 3 0965 #### [facility] [address] WBC (Bld) [#/Vol] 10.38 10*3/uL Normal 4.00-10.60 [facility] Comment on above: Order Comment: No: D o not add to previous draw Criteria for reflexing a culture was not met. Please call the lab at 7668 within 24 hours of collection time if culture is needed Performed By: #### 3 0965 #### [address] CHEST AND LATERALon 11-15-19 CHEST AND LATERAL [facility] Department of Radiology [address] [place] [id number] ======== Patient Name: EPI DAILEY : 1950 Sex: F Age: Race: White Pt. Location: [address] [place] [address] Patient Status: I Ordered Date: 11/14/2018 8:00:00 [...] findings. Electronically signed by:Jamey Hamilton. Transcribed by: [email or web address], User Resident: GAGAN GREENE Electronically Signed by: JAMEY HAMILTON @ 11/15/2018 09:14 AM I personally read this/these film(s) with this resident Normal [facility] Comment on above: Order Comment: No: D o not add to previous draw Criteria for reflexing a culture was not met. Please call the lab at [phone] within 24 hours of collection time if culture is needed LIPID PROFILEon 11-14-2018 Cholesterol [Mass/Vol] 113 mg/dL Low 120-200 [facility] Comment on above: Order Comment: No: [...] Risk Performed By: #### 3 0965 #### [facility] [address] [place] [address], [place] Cholesterol in HDL [Mass/Vol] 29 mg/dL Normal 23-92 [facility] Comment on above: Order Comment: No: [...] Risk Performed By: #### 3 0965 #### [facility] [address] [facility] [place] [address], [place] Cholesterol in LDL [Mass/Vol] 61 mg/dL Normal 0-130 [facility] Comment on above: Order Comment: No: D o not add to previous draw Criteria for reflexing a culture was not met. Please call the lab at [phone] within 24 hours of collection time if culture is needed Result Comment: LDL IS A CALCULATION LDL IS ONLY VALID IF THE TRIG IS LESS THAN 400. Performed By: #### 3 0965 #### [facility] [address] [place] [address], [place] Cholesterol.total/C holesterol in HDL [Mass ratio] 3.9 {ratio} Normal 0.0-4.5 [facility] Comment on above: Order Comment: No: D o not add to previous draw Criteria for reflexing a culture was not met. Please call the lab at [phone] within 24 hours of collection time if culture is needed Performed By: #### 3 0965 #### [facility] [address] NON-HDL CHOLESTEROL 84 mg/dL Normal [facility] Comment on above: Order Comment: No: D o not add to previous draw Criteria for reflexing a culture was not met. Please call the lab at [phone] within 24 hours of collection time if culture is needed Performed By: #### 3 0965 #### [facility] [address] [facility]. [address] Triglyceride [Mass/Vol] 113 mg/dL Normal 40-149 [facility] Comment on above: Order Comment: No: [...] RISK Performed By: #### 3 0965 #### [facility] [address] [place] [address], [facility] VLDL CHOL 23 mg/dL Normal 0-40 [facility] Comment on above: Order Comment: No: D o not add to previous draw Criteria for reflexing a culture was not met. Please call the lab at [phone] within 24 hours of collection time if culture is needed Performed By: #### 3 0965 #### [address] [place] [address], [facility] MAGNESIUM BLOODon 11-14-2018 Magnesium [Mass/Vol] 2.0 mg/dL Normal 1.9-2.7 [facility] Comment on above: Order Comment: No: D o not add to previous draw Criteria for reflexing a culture was not met. Please call the lab at [phone] within 24 hours of collection time if culture is needed Performed By: #### 3 0965 #### [facility] [address] [facility] [place] [address], [facility] MRI LUMBAR SPINE W WO CONTRA STon 11-14-2018 MRI LUMBAR SPINE W WO CONTRAST [facility] Department of Radiology [address] [place] [id number] ======== Patient Name: EPI DAILEY : 1950 Sex: F Age: Race: White Pt. Location: [id number] Patient Status: I Ordered Date: 11/13/2018 7:45:00 [...] spine. Electronically signed by:Kunal Bloom. Transcribed by: [email or web address], User Resident: Electronically Signed by: KUNAL BLOOM @ 11/15/2018 02:54 PM Normal [facility] Comment on above: Order Comment: No: D o not add to previous draw PROTHROMBIN TIMEon 9 INR Coag (PPP) [Relative time] 1.04 {INR} Normal 0.91-1.16 [facility] Comment on above: Order Comment: No: D o not add to previous draw Criteria for reflexing a culture was not met. Please call the lab at [phone] within 24 hours of collection time if [...] 1995;[id number]. Performed By: #### 3 0965 #### [facility] [address] PT Coag (PPP) [Time] 13.6 s Normal 12.3-14.8 [facility] Comment on above: Order Comment: No: [...] SAMPLING. Performed By: #### 3 0965 #### [facility] [address] TROPONIN-Ion 11-14-2018 Troponin I.cardiac [Mass/Vol] 1.03 ng/mL Critically high 0.00-0.04 [facility] Comment on above: Order Comment: No: D o not add to previous draw Result Comment: M-IL EVIOUS CRITICAL RESULT REFERENCE RANGES: 0.00 - 0.04 ng/ml NORMAL 0.05 - 0.50 ng/ml INDETERMINATE > 0.50 ng/ml CONSISTENT WITH AN M.I. Performed By: #### 3 5200 #### [facility] [address] UFH HEPARIN ASSAYon 11-15-19 19 UNFRACTIONATED HEPARIN 0.21 IU/mL Low 0.30-0.70 [facility] Comment on above: Result Comment: Dora roxaban and Apixaban will interfere with the anti Xa assay used to monitor UFH and LMWH. Performed By: #### 3 0965 #### [facility] [address] UNFRACTIONATED HEPARIN 0.26 IU/mL Low 0.30-0.70 [facility] Comment on above: Result Comment: Dora roxaban and Apixaban will interfere with the anti Xa assay used to monitor UFH and LMWH. Performed By: #### 3 0965 #### [facility] [address] [place] [address], [facility] UNFRACTIONATED HEPARIN 0.21 IU/mL Low 0.30-0.70 [facility] Comment on above: Result Comment: Dora roxaban and Apixaban will interfere with the anti Xa assay used to monitor UFH and LMWH. Performed By: #### 3 0965 #### [facility] [address] [place] [address], [facility] UNFRACTIONATED HEPARIN <0.10 Critically low 0.30-0.70 [facility] Comment on above: Result Comment: Lodi roxaban and Apixaban will interfere with the anti Xa assay used to monitor UFH and LMWH. RESULTS CHECKED AND CALLED. ACCURATELY READ BACK BY WILIAM DOMINGO RN @0058 Performed By: #### 3 0477 #### [facility] [address] [facility]. [address] BASIC METABOLIC PANELon 08-2 Calcium [Mass/Vol] 9.2 mg/dL Normal 8.6-10.3 [facility] Comment on above: Order Comment: No: D o not add to previous draw Performed By: #### 0 0071, 24544, 18095 #### [facility] [address] [facility] [place] [address], [facility] Chloride [Moles/Vol] 103 mmol/L Normal 98-107 [facility] Comment on above: Order Comment: No: D o not add to previous draw Performed By: #### 0 0071, 04286, 46136 #### [facility] [address] [place] [address], [facility] CO2 [Moles/Vol] 22 mmol/L Normal 21-31 [facility] Comment on above: Order Comment: No: D o not add to previous draw Performed By: #### 0 0071, 48739, 15620 #### [facility] [address] [place] [address], [place] Creatinine [Mass/Vol] 0.74 mg/dL Normal 0.60-1.20 [facility] Comment on above: Order Comment: No: D o not add to previous draw Performed By: #### 0 0071, 96708, 21410 #### [facility] [address] [place] [address], [place] GFR/1.73 sq M predicted among blacks MDRD (S/P/Bld) [Vol rate/Area] mL/min/{1.73_m2} Normal >60 [facility] Comment on above: Order Comment: No: D o not add to previous draw Performed By: #### 0 0071, 14859, 20286 #### [facility] [address] [place] [address], [place] GFR/1.73 sq M predicted among non-blacks MDRD (S/P/Bld) [Vol rate/Area] mL/min/{1.73_m2} Normal >60 [facility] Comment on above: Order Comment: No: D o not add to previous draw Performed By: #### 0 0071, 12493, 12861 #### [facility] [address] [place] [address], [place] Glucose [Mass/Vol] 116 mg/dL High 70-100 [facility] Comment on above: Order Comment: No: D o not add to previous draw Performed By: #### 0 0071, 48504, 00464 #### [facility] [address] [place] [address], [place] Potassium [Moles/Vol] 3.5 mmol/L Normal 3.5-5.1 [facility] Comment on above: Order Comment: No: D o not add to previous draw Performed By: #### 0 0071, 51544, 23242 #### [facility] [address] [place] [address], [place] Sodium [Moles/Vol] 137 mmol/L Normal 136-145 [facility] Comment on above: Order Comment: No: D o not add to previous draw Performed By: #### 0 0071, 15522, 50777 #### [facility] [address] [facility] [address] Urea nitrogen [Mass/Vol] 14 mg/dL Normal 7-25 [facility] Comment on above: Order Comment: No: D o not add to previous draw Performed By: #### 0 0071, 51844, 05106 #### [facility] [address] BNP (B-TYPE NATRIURETIC PEPT NICK)on 11-13-2018 Natriuretic peptide B (Bld) [Mass/Vol] 695 pg/mL High 0-100 [facility] Comment on above: Order Comment: Yes: Add to Previous draw if able Result Comment: Give n the appropriate clinical setting a BNP result of >100 pg/mL indicates congestive heart failure. Performed By: #### 8 5123, 71555 #### [facility] [address] [facility] [place] [address], [facility] CBC W/DIFFon 11-13-2018 ABS BASOPHILS 0.0 10*3/uL Normal 0.0-0.2 [facility] Comment on above: Performed By: #### 5 0103 #### [facility] [address] [facility] [place] [address], [facility] ABS IMM GRANS 0.1 10*3/uL Normal 0.0-0.2 [facility] Comment on above: Performed By: #### 5 0103 #### [facility] [address] [facility] [place] [address], [facility] ABS NEUTROPHILS 9.9 10*3/uL High 1.6-7.6 [facility] Comment on above: Performed By: #### 5 0103 #### [facility] [address] [facility]. [address] Basophils/100 WBC (Bld) 0.1 % Normal 0.0-1.0 [facility] Comment on above: Performed By: #### 5 0103 #### [facility] [address] [place] [address], [facility] Eosinophils (Bld) [#/Vol] 0.0 10*3/uL Normal 0.0-0.5 [facility] Comment on above: Performed By: #### 5 0103 #### [facility] [address] [place] [address], [facility] Eosinophils/100 WBC (Bld) 0.2 % Normal 0.0-6.0 [facility] Comment on above: Performed By: #### 5 0103 #### [facility] [address] [facility] [address] Erythrocyte distribution width (RBC) [Ratio] 15.9 % High 11.5-15.0 [facility] Comment on above: Performed By: #### 5 0103 #### [facility] [address] Hematocrit (Bld) [Volume fraction] 36.8 % Normal 36.0-45.0 [facility] Comment on above: Performed By: #### 5 0103 #### [facility] [address] [facility] [address] Hemoglobin (Bld) [Mass/Vol] 12.4 g/dL Normal 12.0-15.0 [facility] Comment on above: Performed By: #### 5 0103 #### [facility] [address] [place] [address], [facility] IMMATURE GRANS 0.6 % Normal 0.0-1.0 [facility] Comment on above: Performed By: #### 5 0103 #### [facility] [address] [facility] [place] [address], [facility] Lymphocytes (Bld) [#/Vol] 5.0 10*3/uL High 1.2-4.0 [facility] Comment on above: Performed By: #### 5 0103 #### [facility] [address] [facility] [place] [address], [facility] Lymphocytes/100 WBC (Bld) 32.2 % Normal 20.0-45.0 [facility] Comment on above: Performed By: #### 5 0103 #### [facility] [address] [facility] [place] [address], [facility] MCH (RBC) [Entitic mass] 28.8 pg Normal 27.0-33.0 [facility] Comment on above: Performed By: #### 5 3 #### [facility] [address] [facility] [address] MCHC (RBC) [Mass/Vol] 33.7 g/dL Normal 32.0-35.0 [facility] Comment on above: Performed By: #### 5 0103 #### [facility] [address] [facility] [place] [address], [facility] MCV (RBC) [Entitic vol] 85.6 fL Normal 82.0-98.0 [facility] Comment on above: Performed By: #### 5 3 #### [facility] [address] [facility] [place] [address], [facility] Monocytes (Bld) [#/Vol] 0.5 10*3/uL Normal 0.1-1.0 [facility] Comment on above: Performed By: #### 5 3 #### [facility] [address] [facility] [place] [address], [facility] MONOS 3.3 % Low 5.0-12.0 [facility] Comment on above: Performed By: #### 5 3 #### [facility] [address] [facility] [place] [address], [facility] Neutrophils/100 WBC (Bld) 63.6 % Normal 40.0-72.0 [facility] Comment on above: Performed By: #### 5 0103 #### [facility] [address] [place] [address], [facility] Nucleated RBC/100 WBC (Bld) [Ratio] 0 % Normal 0-0 [facility] Comment on above: Performed By: #### 5 0103 #### [facility] [address] [place] [address], [facility] PLAT CNT 213 10*3/uL Normal 150-400 [facility] Comment on above: Performed By: #### 5 0103 #### [facility] [address] [facility] [place] [address], [facility] RBC (Bld) [#/Vol] 4.30 10*6/uL Normal 3.80-5.00 [facility] Comment on above: Performed By: #### 5 0103 #### [facility] [address] [place] [address], [facility] WBC (Bld) [#/Vol] 15.51 10*3/uL High 4.00-10.60 [facility] Comment on above: Performed By: #### 5 0103 #### [facility] [address] [facility] [place] [address], [facility] HEMOGLOBIN A1Con 11-13-2018 HbA1c (Bld) [Mass fraction] 117 mg/dL Normal 70-126 [facility] Comment on above: Order Comment: Yes: Add to Previous draw if able Performed By: #### 8 5123, 89048 #### [facility] [address] [place] [address], [facility] HbA1c (Bld) [Mass fraction] 5.7 % Normal 4.0-6.0 [facility] Comment on above: Order Comment: Yes: Add to Previous draw if able Performed By: #### 8 5883, 10005 #### [facility] [address] [place] [address], [facility] LIVER BATTERYon 11-13-2018 Albumin [Mass/Vol] 3.7 g/dL Normal 3.5-5.7 [facility] Comment on above: Order Comment: No: D o not add to previous draw Performed By: #### 0 0071, 07163, 24758 #### [facility] [address] [place] [address], [place] ALKALINE PHOSPH 61 IU/L Normal 34-104 [facility] Comment on above: Order Comment: No: D o not add to previous draw Performed By: #### 0 0071, 83827, 65489 #### [facility] [address] [place] [address], [place] ALT [Catalytic activity/Vol] 156 U/L High 7-52 [facility] Comment on above: Order Comment: No: D o not add to previous draw Performed By: #### 0 0071, 31300, 39877 #### [facility] [address] [place] [address], [facility] AST [Catalytic activity/Vol] 62 U/L High 13-39 [facility] Comment on above: Order Comment: No: D o not add to previous draw Performed By: #### 0 0071, 67425, 02229 #### [facility] [address] [place] [address], [place] Bilirubin [Mass/Vol] 0.5 mg/dL Normal 0.3-1.0 [facility] Comment on above: Order Comment: No: D o not add to previous draw Performed By: #### 0 0071, 16690, 62232 #### [facility] [address] [place] [address], [place] Bilirubin.direct [Mass/Vol] 0.1 mg/dL Normal 0.0-0.2 [facility] Comment on above: Order Comment: No: D o not add to previous draw Performed By: #### 0 0071, 23311, 43635 #### [facility] [address] [place] [address], [facility] Protein [Mass/Vol] 6.8 g/dL Normal 6.0-8.3 [facility] Comment on above: Order Comment: No: D o not add to previous draw Performed By: #### 0 0071, 14655, 04256 #### [facility] [address] TROPONIN-Ion 11-13-2018 Troponin I.cardiac [Mass/Vol] 1.42 ng/mL Critically high 0.00-0.04 [facility] Comment on above: Order Comment: No: D o not add to previous draw Result Comment: M-IL EVIOUS CRITICAL RESULT REFERENCE RANGES: 0.00 - 0.04 ng/ml NORMAL 0.05 - 0.50 ng/ml INDETERMINATE > 0.50 ng/ml CONSISTENT WITH AN M.I. Performed By: #### 3 5200 #### [facility] [address] Troponin I.cardiac [Mass/Vol] 1.12 ng/mL Critically high 0.00-0.04 [facility] Comment on above: Order Comment: No: D o not add to previous draw Result Comment: M-CR ITICAL RESULT(S) REVIEWED, CALLED TO AND READ BACK BY MONICA HERNANDEZ RN @ 2000 ON 11-13-18 REFERENCE RANGES: 0.00 - 0.04 ng/ml NORMAL 0.05 - 0.50 ng/ml INDETERMINATE > 0.50 ng/ml CONSISTENT WITH AN M.I. Performed By: #### 0 [id number], [id number], [id number] #### [facility] [address] URINALYSIS REFLEXon 11-14-19 Appearance (U) CLEAR Normal CLEAR [facility] Comment on above: Order Comment: No: D o not add to previous draw Criteria for reflexing a culture was not met. Please call the lab at [phone] within 24 hours of collection time if culture is needed Performed By: #### 3 0965 #### [facility] [address] [place] [address], [place] Bilirubin [Mass/Vol] Negative Normal NEGATIVE [facility] Comment on above: Order Comment: No: D o not add to previous draw Criteria for reflexing a culture was not met. Please call the lab at [phone] within 24 hours of collection time if culture is needed Performed By: #### 3 0965 #### [facility] [address] [place] [address], [place] BLOOD Negative Normal NEGATIVE [facility] Comment on above: Order Comment: No: D o not add to previous draw Criteria for reflexing a culture was not met. Please call the lab at [phone] within 24 hours of collection time if culture is needed Performed By: #### 3 0965 #### [facility] [address] [place] [address], [place] Color (U) YELLOW Abnormal YELLOW [facility] Comment on above: Order Comment: No: D o not add to previous draw Criteria for reflexing a culture was not met. Please call the lab at [phone] within 24 hours of collection time if culture is needed Performed By: #### 3 0965 #### [facility] [address] [place] [address], [place] Glucose [Mass/Vol] Negative Normal NEGATIVE [facility] Comment on above: Order Comment: No: D o not add to previous draw Criteria for reflexing a culture was not met. Please call the lab at [phone] within 24 hours of collection time if culture is needed Performed By: #### 3 0965 #### [facility] [address] [place] [address], [place] KETONE Negative Normal NEGATIVE [facility] Comment on above: Order Comment: No: D o not add to previous draw Criteria for reflexing a culture was not met. Please call the lab at [phone] within 24 hours of collection time if culture is needed Performed By: #### 3 0965 #### [facility] [address] [place] [address], [facility] LEUK EMMANUELLE Negative Normal NEGATIVE [facility] Comment on above: Order Comment: No: D o not add to previous draw Criteria for reflexing a culture was not met. Please call the lab at [phone] within 24 hours of collection time if culture is needed Performed By: #### 3 0965 #### [facility] [address] [facility] [place] [address], [facility] MICRO NOT DONE negative chemical reactions unless requested in original order Normal [facility] Comment on above: Order Comment: No: D o not add to previous draw Criteria for reflexing a culture was not met. Please call the lab at [phone] within 24 hours of collection time if culture is needed Performed By: #### 3 0965 #### [facility] [address] [facility] [place] [address], [facility] Nitrite Ql (U) Negative Normal NEGATIVE [facility] Comment on above: Order Comment: No: D o not add to previous draw Criteria for reflexing a culture was not met. Please call the lab at [phone] within 24 hours of collection time if culture is needed Performed By: #### 3 0965 #### [facility] [address] [facility] [place] [address], [facility] pH (Bld) 6.0 Normal 5.0-8.0 [facility] Comment on above: Order Comment: No: D o not add to previous draw Criteria for reflexing a culture was not met. Please call the lab at [phone] within 24 hours of collection time if culture is needed Performed By: #### 3 0965 #### [facility] [address] [facility] [place] [address], [facility] Protein (U) [Mass/Vol] Negative Normal NEGATIVE [facility] Comment on above: Order Comment: No: D o not add to previous draw Criteria for reflexing a culture was not met. Please call the lab at [phone] within 24 hours of collection time if culture is needed Performed By: #### 3 0965 #### [facility] [address] [place] [address], [facility] SPEC GRAV 1.009 Low 1.015-1.020 [facility] Comment on above: Order Comment: No: D o not add to previous draw Criteria for reflexing a culture was not met. Please call the lab at [phone] within 24 hours of collection time if culture is needed Performed By: #### 3 0965 #### [facility] [address] Vital Signs Date Time Vital Sign Value Performing Clinician Facility 05-11-2023 13:30-0500 Body height 162.56 cm [facility] 05-11-2023 13:30-0500 Body mass index (BMI) [Ratio] 27.6 kg/m2 [facility] 05-11-2023 13:30-0500 Body weight 73.02 kg [facility] 05-11-2023 13:30-0500 Diastolic blood pressure 72 mm[Hg] [facility] 05-11-2023 13:30-0500 Heart rate 84 /min [facility] 05-11-2023 13:30-0500 SaO2% (BldA) [Mass fraction] 97 % [facility] 05-11-2023 13:30-0500 Systolic blood pressure 168 mm[Hg] [facility] 02-27-2023 11:00-0500 Body height 162.56 cm Al Ball Other [facility] 02-27-2023 11:00-0500 Body mass index (BMI) [Ratio] 26.43 kg/m2 [place] Ball Other [facility] 02-27-2023 11:00-0500 Body weight 69.85 kg Al Ball Other [facility] 02-27-2023 11:00-0500 Diastolic blood pressure 72 mm[Hg] Al Ball Other [facility] 02-27-2023 11:00-0500 Respiratory rate 18 /min Al Ball Other [facility] Other 02-27-2023 11:00-0500 Systolic blood pressure 190 mm[Hg] Al Soto Other [facility] Encounters Encounter Date Encounter Type Care Provider Facility Start: 05-11-2023 End: 05-11-2023 ambulatory [facility] Work Phone: Start: 05-11-2023 End: 05-11-2023 Patient encounter procedure [facility] Work Phone: Start: 02-27-2023 End: 02-27-2023 ambulatory Al Soto Other [facility] Other Start: 02-27-2023 Patient encounter procedure Al Soto [facility] Start: 02-27-2023 End: 02-27-2023 Patient encounter procedure [facility] Work Phone: Start: 02-19-2023 End: 02-19-2023 ambulatory Al Soto Other [facility] Other Start: 02-19-2023 Telephone encounter Al Soto [facility] Start: 12-29-2022 End: 12-29-2022 ambulatory Al Soto Other [facility] Other Start: 12-29-2022 Nursing evaluation o f patient and report Al Soto [facility] Start: 06-05-2022 End: 06-06-[address] GONSALVES LISTED REQUEST Facility:[facility] Start: 05-16-2022 End: 05-17-[address] AL SOTO Facility:[facility] Start: 02-26-2022 Adult health examination Al Soto Other [facility] Other Start: 02-24-2022 End: 02-25-[address] AL SOTO Facility:[facility] Start: 08-21-2021 End: 08-22-[address] AL SOTO Facility:[facility] Start: 10-11-2020 End: 10-12-2020 ambulatory [facility] Procedures Date Procedure Procedure Detail [...] raymond 12-29-2022 influenza virus vaccine, unspecified formulation [facility] 12-29-2022 influenza, high dose seasonal, preservative-free Al Soto Other [facility] Other 12-26-2021 influenza virus vaccine, split virus (incl. purified surface antigen) Al Soto Other [facility] Other 12-26-2021 influenza virus vaccine, unspecified formulation [facility] 07-07-2018 pneumococcal polysaccharide vaccine, 23 valent Al Soto Other [facility] 01-06-2018 influenza virus vaccine, split virus (incl. purified surface antigen) Al Soto Other [facility] Other 01-06-2018 influenza virus vaccine, unspecified formulation [facility] 06-29-2017 diphtheria, tetanus toxoids and acellular pertussis vaccine, unspecified formulation Al Soto Other [facility] 06-29-2017 pneumococcal conjuga te vaccine, 13 valent Al Soto Other [facility] Payers Date Payer Category Payer Medicare [id number] 1958 Self-pay [id number] 1950 Unknown [id number] 1950 Unknown [id number] 1950 Unknown [id number] [id number] 1950 Unknown [id number] [id number] [id number] Self-pay Self Pay [id number] Unknown [id number] [id number] Social History Date Type Detail Facility Unknown if ever smoked [facility] Other Sex Assigned At Sex Assigned At Bir th [facility] Other Start: 05-11-2023 Tobacco smoking status NHIS Never smoked tobacco (finding) [facility] Start: 1950 Sex Assigned At Female F [facility] Evaluation note 02-27-2023 Note Date & [...] crm. Healthy diet and exercise. DEXA qoy [facility] Other Evaluation note 02-19-2023 Note Date & Type Note Facility 02-19-2023 Evaluation note Encounter Date Diagnosis Assessment Notes Jan, Primary hypertension (ICD-10 - I10) Jan, Hypercholesteremia (ICD-10 - E78.00) Jan, Other specified hypothyroidism (ICD-10 - E03.8) Jan, Autoimmune thyroiditis (ICD-10 - E06.3) Jan, Vitamin D deficiency (ICD-10 - E55.9) Jan, High risk medication use (ICD-10 - Z79.899) [facility] Other Evaluation note Note Date & Type Note Facility Evaluation note No Information [facility] Other Evaluation note Note Date & Type Note Facility Evaluation note Diagnosis Onset Date Bacterial conjunctivitis of right eye [facility] Work Phone: History general Narrative - Reported Note Date & Type Note Facility History general Narrative - Reported Type Medical History hypertension Medical History hypercholesterolemia Surgical History Problem Title : ANTE RIOR CERVICAL DISCECTOMY AND FUSION (ACDF) (89611), Problem Status : Active, Surgical History Problem Title : past surgical history reviewed, Problem Description : past surgical history reviewed, Problem Comment : reviewed - no changes required, Problem Status : Inactive, Surgical History Problem Title : Spin al Fusion - Neck, Problem Status : Active, [facility] Other History general Narrative - Reported Note Date & Type Note Facility History general Narrative - Reported Type Medical History hypertension Medical History hypercholesterolemia Surgical History neck surgery Hospitalization History see surgical history [facility] Other Summary Purpose Family History Relationship Condition Age at Onset Recorded Date/T addy father Unknown Not Specified Unknown Hypertension Unknown Advance Directives Advance Directive Response Recorded Date/ Time Advance Directives No September 27 9 10:11am Hospital Course Note MR#: [id number] [facility] Pt. Name: Epi Dailey Admitted: 11/13/2018 Discharged: 11/16/2018 Date of : 1950 Physician: Ryan Rehman MD DISCHARGE SUMMARY DIAGNOSES AT ADMISSION: 1. Ngp-PW-fygdmxqxo myocardial infarction. 2. Acute congestive heart failure exacerbation. 3. Oropharyngeal candidiasis. DIAGNOSES AT DISCHARGE: 1. Wwv-VM-gtrmnuqva myocardial infarction. 2. Acute diastolic congestive heart failure exacerbation, resolved. 3. Oropharyngeal candidiasis, resolved. 4. Questionable pneumonia treated. 5. Hypertension controlled. 6. Hyperlipidemia. 7. Abnormal LFTs, resolved. HOSPITAL COURSE: This is a 68-year-old female, who was recently treated with Bactrim for her urinary tract infection and was also started on antibiotics and steroids for possible pneumonia, was [facility] for worsening shortness of breath along with left lower extremity weakness. The patient was started on Zosyn and ciprofloxacin for the last so (more content not included)... Chief Complaint and Reason for Visit Chief Complaint Wellness Rash Reason for Visit Bacterial conjunctiv itis of right eye Additional Source Comments INFORMATION SOURCE (unrecogn ized section and content) DATE CREATED AUTHOR 12/31/2018 [facility] DATE CREATED AUTHOR AUTHOR'S ORGANIZ ATION 03/30/2020 [facility] DATE CREATED AUTHOR AUTHOR'S ORGANIZ ATION 10/29/2020 [facility] DATE CREATED AUTHOR AUTHOR'S ORGANIZ ATION 06/06/2022 [facility] pitmn REASON FOR VISIT (unrecogniz ed section and content) [facility] Care Teams (unrecognized sec tion and content) Team Status: Active Member Role Status Dates lA Soto DO Primary Care Provider Active Team Status: Inactive Member Role Status Dates Al Soto DO Attending Provider Active Sta rt: February 27, 2023 End: February 27, 2023 Team Status: Inactive Member Role Status Dates Al Soto DO Primary Care Provider Active Start: May 11, 2023 End: May 11, 2023 Maria Guadalupe Youssef APRN ASSISTANT CURATOR-C Attending Provider Active Start: April End: May [...] BE BASED ON THE PRIMARY CLINICAL RECORDS. [facility]. provides no warranty or guarantee of the accuracy or completeness of information in this document.
[2024-04-18 14:23] VITALS: BP 171/87; PULSE 84; O2SAT 96
[2024-04-18 14:29] LABS: Basophils Percent Auto 0.2 % (0.2-2.0); Eosinophils Percent Auto 0.3 % (0.9-7.0); Hematocrit 43.6 % (36.0-48.0); Hemoglobin 14.5 g/dL (12.0-16.0); Immature Granulocytes Abs Auto 0.02 10^3/uL (0.00-0.03); Immature Granulocytes Pct Auto 0.2 % (0.0-0.5); Lymphocytes Percent Auto 31.8 % (20.5-60.0); Mean Corpuscular HGB Conc 33.3 g/dL (29.9-35.2); Mean Corpuscular Hemoglobin 29.2 pg (26.7-34.0); Mean Corpuscular Volume 87.9 fL (81.0-99.0); Mean Platelet Volume 11.3 fL (9.5-13.5); Monocytes Absolute Auto 0.7 10^3/uL (0.3-0.8); Monocytes Percent Auto 5.6 % (1.7-12.0); Neutrophils Absolute Auto 7.8 10^3/uL (1.4-6.5); Neutrophils Percent Auto 61.9 % (43.0-75.0); Platelet Count 265 10^3/uL (150-450); Red Blood Count 4.96 10^6/uL (4.20-5.40); White Blood Count 12.6 10^3/uL (4.0-11.0)
[2024-04-18 14:37] LABS: Anion Gap 13.9; BUN Creatinine Ratio 12.7; Calcium 9.8 mg/dL (8.5-10.1); Carbon Dioxide 24.7 mmol/L (21.0-32.0); Chloride 101 mmol/L (98-107); Estimated GFR (African America >60 (>=60 mL/min/1.73m^2); Estimated GFR (Non-African Ame 53 (>=60 mL/min/1.73m^2); Glucose 123 mg/dL (74-106); Potassium 3.6 mmol/L (3.5-5.1); Sodium 136 mmol/L (136-145)
== END 2024-04-18 15:55 | disposition home or self-care (01) ==
PROVIDERS: Emergency Provider Emergency Medicine; PCP Internal Medicine
DX: K52.9 Noninfective gastroenteritis and colitis, unspecified (principal); Z90.710 Acquired absence of both cervix and uterus
CPT/HCPCS: 36415; 74177; 80048; 85025; 87045; 87046; 87427; 99285; Q9967

== ENCOUNTER 2024-05-19 11:26 | Outpatient (OUT) | payer MEDICARE, SELFPAY ==
--- NOTE | 2024-05-19 11:32 | MM_ITS ---
Patient Name: EPI GEORGE MR#: [id number] : 1950 Exam Date: 05/19/2024 Ordering Doctor: DR Al Soto D.O. RADIOLOGY REPORT PROCEDURE: MM TOMOSYNTHESIS SCREENING BI COMPARISON: MM TOMOSYNTHESIS SCREENING BI, 05/18/2023. MG MAMM SCREEN 3D IFEANYI CAD, 05/16/2022. MG MAMM SCREEN 3D IFEANYI CAD, 03/28/2021. MG MAMM IFEANYI SCRN W CAD DIG, 11/08/2014. INDICATIONS: Screening Calculator Name NCI Breast Cancer Risk Assessment Tool 5 Year Breast Cancer Risk 1.30% Lifetime Breast Cancer Risk 3.10% Personal Breast Cancer No Personal Ovarian Cancer No Treatments None Family Cancers None LOCATION: [facility] BREAST COMPOSITION: There are scattered areas of fibroglandular density. FINDINGS: DIAGNOSTIC CATEGORY 1--NEGATIVE. NO CHANGE FROM COMPARISON ASSESSMENT. RIGHT BREAST: No significant suspicious finding. LEFT BREAST: No significant suspicious finding. RECOMMENDATIONS: ROUTINE MAMMOGRAM AND CLINICAL EVALUATION IN 12 MONTHS. PLEASE NOTE: A NORMAL MAMMOGRAM DOES NOT EXCLUDE THE POSSIBILITY OF BREAST CANCER. A CLINICALLY SUSPICIOUS PALPABLE LUMP SHOULD BE BIOPSIED. Dictated by: Jose Hampton DO on 05/19/2024 at 13:25 Approved by: Jose Hampton DO on 05/19/2024 at 13:28
== END 2024-05-19 11:27 | disposition home or self-care (01) ==
LOC: MAMMO 11:26
PROVIDERS: PCP Internal Medicine; Visit Provider Internal Medicine
DX: Z12.31 Encounter for screening mammogram for malignant neoplasm of breast (principal)
CPT/HCPCS: 77063; 77067

== ENCOUNTER 2024-08-11 10:53 | Outpatient (RCR) | payer MEDICARE, SELFPAY | END 2024-09-15 07:48 | disposition home or self-care (01) | LOC: PT 10:53 | PROVIDERS: PCP Internal Medicine; Visit Provider Internal Medicine | DX: M25.511 Pain in right shoulder (principal) | CPT/HCPCS: 97110; 97112; 97140; 97163 ==

== ENCOUNTER 2024-10-28 12:28 | Outpatient (OUT) | payer MEDICARE, SELFPAY ==
--- OUTSIDE RECORDS SUMMARY | 2024-10-28 12:30 | XMS_ITS | Encounter Summary ---
Author Organization [facility] s tem Address [id number] [address] [place] [address] Care Team Providers Care Floor Trader Name Role Phone Unavailable Primary Care Provider Unavailabl e Encounter Details Date Type Department Care Team (Late st Contact Info) Description 11/03/2022 [facility] [address] [place] [address] Keri Wilkerson Social History Tobacco Use Types Packs/Day Years Used Date Smoking Tobacco: Never Smokeless Tobacco: Never Alcohol Use Standard Drinks/Week Comments Yes 0 (1 standard drink = 0.6 oz pur e alcohol) social Childcare Answer Date Recorded Childcare Unknown 08/30/2018 Employment Answer Date Recorded Employment Unknown 08/30/2018 Comments No Sex and Gender Information Value Date Recorded Sex Assigned at Not on file Legal Sex Female 12:14 PM EDT Gender Identity Not on file Sexual Orientation Not on file documented as of this encounter Miscellaneous Notes * Telephone Encounter - Keri Wilkerson - 11/03/2022 2:12 PM EDT Patient called the office after doing some reading/research. She read that a hormonal cream could help her prolapse. She would like your opinion on it it would be something that could possibly help her. If something is sent in for her she would like it sent to [facility] in [place]. Please advise. Thank you. * Telephone Encounter - SISSY Joshua - 11/03/2022 2:12 PM EDT I called patient back. Questions answered about vaginal estrogen. Patient has an appt next week with the provider that did her surgery and she states she will ask him about it. She declines a prescription today. documented in this encounter Plan of Treatment Not on file documented as of this encounter Visit Diagnoses Not on filedocumented in this encounter
--- OUTSIDE RECORDS SUMMARY | 2024-10-28 12:30 | XMS_ITS | Clinical Summary ---
Author Organization [facility] Address [address], [address] [place] [address] Care Team Providers Care Director Of Enterprise Applications Name Role Phone Al Soto DO Primary Care Provider [phone] Allergies Active Allergy Reactions Criticality Noted Date Comments Sulfa Antibiotics Hives,Other (See Comments) 03/29/2020 Sulfamethoxazole-Trimethopri m 09/22/2024 Medications Coenzyme Q10 (COQ10) 100 MG CAPS Take by mouth daily Active lovastatin (MEVACOR) 20 MG tablet Take 1 tablet by mouth nightly Active levothyroxine (SYNTHROID) 50 MCG tablet Take 1 tablet by mouth Daily Active losartan (COZAAR) 25 MG tablet Take 1 tablet by mouth daily Active amLODIPine (NORVASC) 2.5 MG tablet Take 1 tablet by mouth in the morning and at bedtime Active estradiol (ESTRACE VAGINAL) 0.1 MG/GM vaginal creamIndicatio ns:Postmenopau shawn atrophic vaginitis Place 1 g vaginally Twice a Week 42.5 g 3 4 Active nystatin-triam cinolone (MYCOLOG II) 394747-1.1 UNIT/GM-% cream Apply topically 2 times daily. 1 each 5 Active metroNIDAZOLE (METROGEL) 0.75 % vaginal gel Place 1 Applicatorful vaginally 2 times daily for 5 days 10 each 5 025 Active Problems Problem Noted Date Diagnosed Date RALH, BSO, A/P repair, Lynx sling, Cysto 10/11/20 10/11/2020 Overview (10/12/2020): Robotic-assisted laparoscopic hysterectomy with bilateral salpingo-oophorectomy, internal Galdamez-Montelongo culdoplasty with uterosacral suspension and enterocele repair, anterior colporrhaphy, cystourethroscopy, filling cystometrogram, Lynx retropubic sling placement, posterior colporrhaphy, fulguration of endometriosis Cystocele with rectocele 10/09/2020 Uterine prolapse 10/09/2020 Hypertension Thyroid disease Hyperlipidemia Encounters Date Type Department Care Team Description 09/22/2024 9:13 PM EDT - 09/22/2024 11:59 PM EDT Hospital Encounter [facility] [address] [place] [address] Vaginal itching Discharge Disposition: Home or Self Care 09/22/2024 2:15 PM EDT Office Visit [facility]ro[facility] [address] [place] [address] Poli Hopper DO Vaginal itching (Primary Dx); Pelvic pressure in female; Vaginal atrophy; Urethrocele 09/22/2024 Results Follow-Up [facility]necology [facility] [address] [place] [address] Poli Hopper DO from Last 3 Months Immunizations Immunization Administration Dates Next Due COVID-19, MODERNA SHIRA bloom r, Primary or Immunocompromised, (age 12y+), IM, 100 mcg/0.5mL 05/28/2020,05/01/2020 Social History Tobacco Use Types Packs/Day Years Used Date Smoking Tobacco: Never Smokeless Tobacco: Never Tobacco Cessation:Counseling Given: Not Answered Alcohol Use Standard Drinks/Week Comments Yes 0 (1 standard drink = 0.6 oz pur e alcohol) social Comments No Sex and Gender Information Value Date Recorded Sex Assigned at Not on file Legal Sex Female 4:30 AM EST Gender Identity Not on file Sexual Orientation Not on file Last Filed Vital Signs Vital Sign Reading Time Taken Comments Blood Pressure 170/82 09/22/2024 2:22 PM EDT Pulse 90 01/25/2024 1:51 PM EST Temperature 36.8 C (98.2 F) 01/25/2024 1:51 PM EST Respiratory Rate 14 10/12/2020 8:00 AM EDT Oxygen Saturation 98% 09/22/2024 2:22 PM EDT Inhaled Oxygen Concentration - - Weight 72.6 kg (160 lb) 01/25/2024 1:51 PM EST Height 158.8 cm (5' 2.5 ) 01/25/2024 1:51 PM EST Body Mass Index 28.8 01/25/2024 1:51 PM EST Plan of Treatment Health Maintenance Due Date Last Done Comments Lipids 1961 Depression Screen 1963 Hepatitis C screen 1969 Breast cancer screen 1991 Colonoscopy 01/11/1996 Colorectal Cancer Screen 01/11/1996 FIT/FOBT: Average risk 01/11/1996 Fecal-DNA (Cologuard): Average risk 01/11/1996 Sigmoidoscopy/CT colonography 01/11/1996 DEXA (modify frequency per FRAX score) 2006 COVID-19 Vaccine ( season) 2023 05/28/2020, 05/01/2020 Annual Wellness Visit (Medicare) 12/28/2023 Flu vaccine (#1) 10/21/2024 12/21/2023, 11/2022, 12/26/2021, Additional history exists Respiratory Syncytial Virus (RSV) or age 60 yrs+ (1 - 1-dose 75+ series) 2026 DTaP/Tdap/Td vaccine (2 - Tdap) 06/30/2027 06/29/2017 Pneumococcal 50+ years Vaccine Completed 07/07/2018, 06/29/2017 Shingles vaccine Completed 10/15/2022, 04/04/2022 Hepatitis A vaccine Aged Out No longe r eligible based on patient's age to complete this topic Hepatitis B vaccine Aged Out No longe r eligible based on patient's age to complete this topic Hib vaccine Aged Out No longer eligi ble based on patient's age to complete this topic Meningococcal (ACWY) vaccine Aged Out No longer eligible based on patient's age to complete this topic Meningococcal B vaccine Aged Out No l onger eligible based on patient's age to complete this topic Polio vaccine Aged Out No longer elig ible based on patient's age to complete this topic Medical Devices Implanted Type Area Heater Tender Device Identifier Shelf Expiration Date Model / Serial / Lot Sling Watch Repair Technician Polypr Suprpub Midurethral Halo Ndl Guid Tb Hndl Implanted:Qty: 1 on 10/11/2020 by Poli Hopper DO at [facility] Urologic al/Watch Repair Technician Urinary Bladder [facility]- 07/23/2023 [id number] / / [id number] Description:[id number] Procedures Procedure Name Priority Date/Time Associated Diagnosis Comments VAGINITIS DNA PROBE Routine 09/22/2024 9 :14 PM EDT Vaginal itching POCT URINALYSIS DIPSTICK W/O MICROSCOPE (AUTO) Routine 09/22/2024 3:51 PM EDT Vaginal itching from Last 3 Months Results * (ABNORMAL) Vaginitis DNA Probe (09/22/2024 9:14 PM EDT) Source .VAGINAL SWAB 09/22/2024 9:14 PM EDT [facility] Nomi Trichomonas NEGATIVE NEGATIVE 09/22/2024 9:14 PM EDT [facility] Comment:for Trichomonas Vagi nalis GARDNERELLA VAGINALIS POSITIVE(A) NEGATIVE 09/22/2024 9:14 PM EDT [facility] N[facility] Comment:for Gardnerella vagi nalis Zaida species NEGATIVE NEGATIVE 9:14 PM EDT [facility] N[facility] Comment: for Zaida sp. Method of testing is a DNA probe intended for detection and identification of Zaida species, Gardnerella vaginalis, and Trichomonas vaginalis nucleic acid in vaginal fluid specimens from patients with symptoms of vaginitis/vaginosis. SPECIMEN FROM CERVIX OR VAGINA / Unknown 09/22/2024 9:14 PM EDT 09/22/2024 9:14 PM EDT Poli Hopper DO MICROBIOLOGY - GENERAL ORDERAB LES Final Result [facility] [address] [place] [address], [facility] [phone] * POCT Urinalysis No Micro (Auto) (09/22/2024 3:51 PM EDT) Color, UA yellow Clarity, UA clear Glucose, UA POC norm mg/dL Bilirubin, UA neg Ketones, UA neg mg/dL Spec Grav, UA 1.020 Blood, UA POC neg pH, UA 6 Protein, UA POC neg mg/dL Urobilinogen, UA norm mg/dL Leukocytes, UA neg Nitrite, UA neg Urine 09/22/2024 3:51 PM EDT Poli Hopper DO POINT OF CARE TEST ORDERABLES Final Result from Last 3 Months Insurance MEDICARE [address] MEDICARE Advance Directives * Full Code (Latest Code Status on File) Date Activated Date Inactivated Comments 10/11/2020 12:36 PM 10/12/2020 3:44 PM Care Teams Director Of Enterprise Applications Relationship Specialty Start Date End Date Ball, Al, DO [address] [place] [address] PCP - General Internal Medicine 01/25/24
--- OUTSIDE RECORDS SUMMARY | 2024-10-28 12:30 | XMS_ITS | Encounter Summary ---
Author Organization [facility] Address [address] [place], [place] [id number] Care Team Providers Care Bulb Brander Name Role Phone Al Soto DO Primary Care Provider [phone] Pcp, No Primary Care Provider Unavailabl e Source Comments In the event this information is protected by the Federal Confidentiality of Alcohol and Drug AbusePatient Records regulations: The Federal rules restrict any use of the information to criminally investigate or prosecute any alcohol or drug abuse patient.[facility] Encounter Details Date Type Department Care Team (Latest Contact Info) Description 07/18/2002 Prob Sum Review Provider, [facility] Social History Tobacco Use Types Packs/Day Years Used Date Smoking Tobacco: Never Assessed Comments Unknown Sex and Gender Information Value Date Recorded Sex Assigned at Not on file Legal Sex Female 9:57 AM EST Gender Identity Not on file Sexual Orientation Not on file documented as of this encounter Plan of Treatment Not on file documented as of this encounter Visit Diagnoses Not on filedocumented in this encounter Care Teams Bulb Brander Relationship Specialty Start Date End Date Al Soto DO [address] [place] [address] PCP - General 05/10/02 10/04/21 Pcp, No PCP - General 10/05/21 04/22/22 documented as of this encounter
--- OUTSIDE RECORDS SUMMARY | 2024-10-28 12:30 | XMS_ITS | Clinical Summary ---
Author Organization [facility] Healthcare Address [address] [place] [address] Care Team Providers Care Attending Radiologist Name Role Phone Unavailable Primary Care Provider Unavailabl e Social History Tobacco Use Types Packs/Day Years Used Date Smoking Tobacco: Never Assessed Comments Unknown Sex and Gender Information Value Date Recorded Sex Assigned at Not on file Legal Sex Female 12:02 PM EST Gender Identity Not on file Sexual Orientation Not on file Plan of Treatment Not on file
--- OUTSIDE RECORDS SUMMARY | 2024-10-28 12:31 | XMS_ITS | Clinical Summary ---
Author Organization [facility] Address [address] [place], [place] [id number] Care Team Providers Care Senior Safety Support Manager Name Role Phone Unavailable Primary Care Provider Unavailabl e Social History Tobacco Use Types Packs/Day Years Used Date Smoking Tobacco: Never Assessed Comments Unknown Sex and Gender Information Value Date Recorded Sex Assigned at Not on file Legal Sex Female 9:57 AM EST Gender Identity Not on file Sexual Orientation Not on file Plan of Treatment Health Maintenance Due Date Last Done Comments Anxiety Screening 1969 Depression Screening 1969 Hepatitis C Screening 1969 DTaP,Tdap,Td Vaccine (1 - Tdap) [address] Colonography 01/11/1996 Cologuard (FIT-DNA) 01/11/1996 Colonoscopy 01/11/1996 Colorectal Cancer Screening 01/11/1996 Diabetes Screening 01/11/1996 Fecal Occult Blood 01/11/1996 Lipid Screening 01/11/1996 Sigmoidoscopy 01/11/1996 Pneumococcal Vaccine: 50+ (1 of 1 - PCV) 2001 Shingrix Vaccine (1 of 2) 2001 Bone Density Screening 01/11/2016 Advance Directive Discussion 03/23/2024 Influenza Vaccine (#1) 2024 RSV Vaccine (1 - 1-dose 75+ series) 2026 Insurance [employer]
--- OUTSIDE RECORDS SUMMARY | 2024-10-28 12:31 | XMS_ITS | Encounter Summary ---
Author Organization [facility] Address [address] [facility] [address] [facility], [address] [place] [address] Care Team Providers Care Student Career Development Specialist Name Role Phone Al Soto DO Primary Care Provider [phone] Encounter Details Date Type Department Care Team (Late st Contact Info) Description 09/22/2024 Results Follow-Up [facility] Urogynecology and Pelvic Rehabilitation [address] [facility] [address] [place] [id number] Poli Hopper DO [address] [facility] [address] [place] [address] Social History Tobacco Use Types Packs/Day Years [...] on filedocumented in this encounter Care Teams Student Career Development Specialist Relationship Specialty Start Date End Date Al Soto DO [address] [facility] [place] [address] PCP - General Internal Medicine 01/25/24 documented as of this encounter
--- OUTSIDE RECORDS SUMMARY | 2024-10-28 12:31 | XMS_ITS | Clinical Summary ---
Author Organization [facility] Address [address] [place] [address] Phone Care Team Providers Care Wearing Apparel Presser Name Role Phone Unavailable Primary Care Provider Unavailabl e Encounters Date Type Department Care Team Description 09/21/2024 Telephone [facility] [address] [place] [address] [place] [phone] Bonifacio Melton MD from Last 3 Months Social History Tobacco Use Types Packs/Day Years Used Date Smoking Tobacco: Never Assessed Comments Unknown Sex and Gender Information Value Date Recorded Sex Assigned at Not on file Legal Sex Female 7:42 PM EST Gender Identity Not on file Sexual Orientation Not on file Plan of Treatment Not on file
--- OUTSIDE RECORDS SUMMARY | 2024-10-28 12:31 | XMS_ITS | Encounter Summary ---
Author Organization [facility] Address [address] [place] [address] Phone Care Team Providers Care Forestry Pilot Name Role Phone Unavailable Primary Care Provider Unavailabl e Encounter Details Date Type Department Care Team (Late st Contact Info) Description 09/21/2024 Telephone [facility] [address] [phone] Bonifacio Melton MD [address] [facility], [address] [place] [id number] Social History Tobacco Use Types Packs/Day Years [...]
--- NOTE | 2024-10-28 12:40 | MR_ITS ---
The [address] [address] Patient Name: EPI GEORGE MRN: [id number] date: 1950 Sex: F Assigned Patient Location: LAB Current Patient Location: LAB Accession/Order Number: [id number] Exam Date: 10/28/2024 19:32 Report Date: 10/28/2024 19:40 At the request of: EDGAR LEIVNE DO Procedure: MR cervical spine wo/w con MRI of the cervical spine performed without with contrast INDICATION: History of cervical spine arthrodesis cervical spine pain with radiculopathy radiating into shoulders and elbows. COMPARISON: None FINDINGS: The craniocervical junction is maintained. Cervical cord is unremarkable in signal morphology. The postsurgical changes status post multilevel ACF C5-C7. The vertebral heights preserved. Mild straightening. Slight heterogeneous appearance of bone marrow with overall diminished marrow signal is nonspecific but could suggest an infiltrative process and correlation with CBC is recommended. Heterogeneous appearance of ascites seen with multiple myeloma. No findings of pathologic fracture. Prevertebral and paraspinal soft tissues unremarkable. C2-C3: Facet arthropathy. Mild right foraminal narrowing. Left foramen patent. Canal is patent. No significant disc disease. C3-C4: Facet arthropathy, moderate to severe. This causes moderate to severe neural foraminal narrowing. Canal is patent. C4-C5: Moderate facet arthropathy. Canal and foramina are patent. No significant disease. C5-6: Interbody fusion. Canal and foramina are patent. C6-7: Interbody fusion. Minimal ossific spurring extending to both foramina zones noted causing mild foraminal narrowing. Canal is patent. C7-T1: Mild to moderate facet arthropathy. No significant disease central canal or neural from narrowing identified At T1-T2 there is evidence of a right subarticular zone disc protrusion on the sagittal images. Suspect mild canal narrowing. Mild left and [id number] right foraminal narrowing. Following contrast administration, no abnormal postcontrast enhancement identified MR/MR cervical spine wo/w con IMPRESSION: Degenerative changes notably involving posterior elements of the cervical spine causing foraminal encroachment, most pronounced C3-C4, as detailed above. Diffusely diminished marrow signal appearing heterogeneous. Correlate with CBC is strongly recommended. This could suggest an infiltrative or myeloproliferative process, one such differential includes anemia. Given the heterogeneous appearance of the marrow signal, multiple myeloma could be considered in the differential for the marrow signal abnormality.. There are no findings of pathologic compression fracture. Incidental note of the right subarticular zone protrusion T1-T2 Impression dictated by: Chad Decker M.D. 10/28/2024 7:40 PM Dictation Location: [place] [address] Electronically authenticated by: [id number] Date: 10/28/2024 19:40
--- OUTSIDE RECORDS SUMMARY | 2024-10-28 12:43 | XMS_ITS | CCD ---
Author Organization [facility] Inform ion [facility] Care Team Providers Care Short Haul Driver Name Role Phone CHARLES, DR HERNÁNDEZ Admitting Unavailable BALL, DR HERNÁNDEZ Attending Unavailable BALL, DR HERNÁNDEZ Primary Care Unavailable BALL, DR HERNÁNDEZ Consulting Unavailable [employer] Consulting Unavailable BALL, DR HERNÁNDEZ Admitting Unavailable [...] REQUEST, DR GONSALVES LISTED Consulting Unavaila ble Al Soto Unavailable Al Soto DO Primary Care Provider Al Soto DO Attending Provider [phone] Al Soto DO Primary Care Provider STEVIE DELGADO Referring AL Chaney Primary Care Unavailable Allergies Allergy Classification Reported Allergen(s) Allergy Type Date of Onset Reaction(s) Facility (1 source) Sulfamethoxazole / Trimethoprim Drug Allergy [facility] Repository (2 sources) patient allergy list reviewed by nurse or physicia Propensity to adverse reactions 06-30-19 18 Comment:Done [employer] Other (2 sources) Allergies Reconciled Propensity to adverse reactions Unknown [employer] Other (4 sources) Substance with sulfonamide structure and antibacterial mechanism of action (substance) Drug allergy 03-29-19 21 Hives, Other (See Comments) [facility] (1 source) Sulfamethoxazole / Trimethoprim Drug Allergy 09-23-19 [facility] Medications Current Medications Medication Drug Class(es) Dates Sig (Normalized) Sig (Original) amLODIPine 2.5 mg oral tablet (9 sources) Dihydropyridine Calcium Channel Mar Start: 02-29-2024 take 1 tablet by mouth twice daily Amlodipine 2.5 mg tablet Active 0 .ROUTE .COMPLEX 180 February 29, 2024 5:57pm Take 1 tablet by mouth twice daily for 90 days Complies with drug therapy Start: 05-11-2023 End: 02-29-2024 take 1 tablet by mouth twice daily Amlodipine 2.5 mg tablet Discontinued 2.5 MG PO Twice daily May 11, 2023 1:00am February 29, 2024 5:57pm take 1 tablet by suzie th once daily amLODIPine Besylate 2.5 MG Take 1 tablet by mouth once daily for 90 Active atorvastatin (3 sources) HMG-CoA Reductase Inhibitor Atorvastatin Calcium Active baclofen 10 mg oral tablet (1 source) gamma-Aminobutyric Acid-ergic Agonist Start: take 1 tablet by mouth once daily at bedtime Baclofen 10 mg tablet Active 10 MG PO Daily at bedtime 10 July 29, 2024 12:00am Complies with drug therapy estradiol 0.1 mg/ml vaginal cream (5 sources) Estrogen Start: estradiol (ESTRACE VAGINAL) 0.1 MG/GM vaginal cream Indications: Postmenopausal atrophic vaginitis Place 1 g vaginally Twice a Week 42.5 g 3 01/25/2024 Active Start: 05-11-2023 Estradiol 0.01 % (0.1 mg/gram) cream Active 1 APPLICATOR VAGINAL As Directed May 11, 2023 1:00am Complies with drug therapy Estradiol 0.1 MG /GM as directed Vaginal Active levothyroxine sodium 0.075 mg oral tablet (9 sources) l-Thyroxine Start: 03-03-2024 take 1 tablet by mouth once daily Levothyroxine 75 mcg tablet Active 0 .ROUTE .COMPLEX March 03, 2024 11:30am TAKE 1 TABLET BY MOUTH ONCE DAILY ON AN EMPTY STOMACH FOR 90 DAYS Complies with drug therapy Start: 03-03-2024 take 1 tablet by suzie th once daily Levothyroxine 75 mcg tablet Active 0 .ROUTE .COMPLEX March 03, 2024 10:30am TAKE 1 TABLET BY MOUTH ONCE DAILY ON AN EMPTY STOMACH FOR 90 DAYS Start: 05-11-2023 End: 03-03-2024 take 1 tablet by mouth once daily Levothyroxine (Euthyrox) 75 mcg tablet Discontinued 75 MCG PO Daily May 11, 2023 1:00am March 03, 2024 11:30am Start: 02-26-2022 take 1 tablet by suzie th every twenty-four hours Euthyrox 75 MCG 1 tablet on an empty stomach oral daily for 90 days *Pick strength-form from Lumexis for eRX* Feb, Active Start: 02-26-2022 take 1 tablet by suzie th once daily Euthyrox 75mcg Euthyrox 75mcg, 1 Tablet daily # 90, 02/26/2022, Ref. x3. Active oral daily for 90 *Pick strength-form from Lumexis for eRX* Feb, Active take 1 tablet by suzie th once daily levothyroxine (SYNTHROID) 50 MCG tablet Take 1 tablet by mouth Daily Active lisinopril 20 mg oral tablet (4 sources) Angiotensin Converting Enzyme Inhibitor Start: 03-14-2024 End: 03-14-2024 take 1 tablet by mouth twice daily Lisinopril 20 mg tablet Active 20 MG PO Twice daily 180 90 March 14, 2024 1:00am Complies with drug therapy lovastatin 20 mg oral tablet (9 sources) HMG-CoA Reductase Inhibitor Start: 02-22-2024 take 1 tablet by mouth once daily Lovastatin 20 mg tablet Active 0 .ROUTE .COMPLEX February 22, 2024 9:38am Take 1 tablet by mouth once daily for 90 days Complies with drug therapy Start: 05-11-2023 End: 02-22-2024 take 1 tablet by mouth once daily Lovastatin 20 mg tablet Discontinued 20 MG PO Daily May 11, 2023 1:00am February 22, 2024 9:39am Start: 02-26-2022 take 1 tablet by suzie th every twenty-four hours Lovastatin 20 MG 1 tablet oral daily for 90 days *Pick strength-form from Lumexis for eRX* Feb, Active nystatin 080493 unt/ml / triamcinolone acetonide 1 mg/ml topical cream (1 source) Polyene Antifungal, Corticosteroid Start: 09-22-2024 nystatin-triamcinolone (MYCOLOG II) 358304-4.1 UNIT/GM-% cream Apply topically 2 times daily. 1 each 09/22/2024 Active polymyxin b 75268 unt/ml / trimethoprim 1 mg/ml ophthalmic solution (3 sources) Dihydrofolate Reductase Inhibitor Antibacterial, Polymyxin-class Antibacterial Start: 05-11-2023 take 1 drop(s) into the eye(s) four times daily Polymyxin B Sulf-Trimethoprim 10,000 unit- 1 mg/mL drops Active 1 DROPS OPHTHALMIC Four times daily 12 25May 11, 2023 1:00am Complies with drug therapy Start: 05-11-2023 take 1 drop(s) into the eye(s) four times daily Polymyxin B Sulf-Trimethoprim Active 1 DROPS OPHTHALMIC Four times daily 12 25May 11, 2023 12:00am ubidecarenone 100 mg / vitam in e 5 unt oral capsule (1 source) take 1 capsule by mo uth once daily Coenzyme Q10 (COQ10) 100 MG CAPS Take by mouth daily Active Completed/Discontinued Medications Medication Drug Class(es) Dates Sig (Normalized) Sig (Original) cephalexin 500 mg oral capsule (3 sources) Cephalosporin Antibacterial Start: 09-26-2018 take 1 capsule by mouth every eight hours Cephalexin 500 MG 1 capsule Orally three times a day for 5 days Sep, Not-Taking/PRN fluconazole 150 mg oral tablet (1 source) Azole Antifungal Start: 05-10-2024 End: 09-02-2024 take 1 tablet by mouth once daily Fluconazole 150 mg tablet Discontinued 150 MG PO Daily 03 23May 10, 2024 1:00am September 02, 2024 7:37am losartan potassium 100 mg oral tablet (8 sources) Angiotensin 2 Receptor Mar Start: 05-11-2023 End: 03-14-2024 take 1 tablet by mouth once daily Losartan 100 mg tablet Discontinued 100 MG PO Daily May 11, 2023 1:00am March 14, 2024 12:43pm Start: 02-26-2022 take 1 tablet by suzie every twenty-four hours Losartan Potassium 100 MG 1 tablet Orally Once a day for 90 days Feb, Active take 1 tablet by mouth once henrietta y losartan (COZAAR) 25 MG tablet Take 1 tablet by mouth daily Active Losartan Potassium-HCTZ (3 sources) Losartan Potassi um-HCTZ Not-Taking/PRN Losartan Potassi um-HCTZ Active phenazopyridine hydrochloride 200 mg oral tablet (3 sources) Start: 09-26-2018 take 1 tablet by mouth every eight hours Pyridium 200 MG 1 tablet after meals Orally Three times a day for 2 day(s) Sep, Not-Taking/PRN predniSONE 20 mg oral tablet (1 source) Start: 07-29-2024 End: 09-02-2024 Prednisone 20 mg tablet Discontinued 20 MG PO As Directed 15 10 July 29, 2024 12:00am September 02, 2024 7:37am 1 tab bid w/ food x 5 days, then qd w/ food x 5 days Problems Active Problems Problem Classification Problem Date Documented Da te Episodic/Chronic Diseases of white blood cells (7 sources) Lymphocytosis (symptomatic); Translations: [Lymphocytosis] Onset: 08-21-2021 Chronic Disorders of lipid metabolism (18 sources) Pure hypercholesterolemia, unspecified; Translations: [Hyperlipidemia] Onset: 06-29-2016 Resolved: 02-20-2021 Chronic Essential hypertension (13 sources) Essential (primary) hypertension; Translations: [Essential hypertension] Onset: 03-01-2022 Chronic Gastrointestinal hemorrhage (3 sources) Hematochezia; Translations: [Melena] 04-26-2024 Episodic Genitourinary symptoms and ill-defined conditions (3 sources) Polyuria; Translations: [Other polyuria] Episodic Immunizations and screening for infectious disease (3 sources) Vaccination given; Translations: [Encounter for immunization] Episodic Inflammation; infection of eye (except that caused by tuberculosis or sexually transmitteddisease) (2 sources) Bacterial conjunctivitis; Translations: [Unspecified conjunctivitis] 05-11-2023 Episodic Noninfectious gastroenteritis (3 sources) Colitis; Translations: [Noninfective gastroenteritis and colitis, unspecified] 04-26-2024 Episodic Nutritional deficiencies (3 sources) Vitamin D deficiency; Translations: [Vitamin D deficiency, unspecified] Chronic Other aftercare (2 sources) Other snf (current) drug therapy; Translations: [OTH NURSING HOME CURRENT DRUG THERAPY] Onset: 03-01-2022 Episodic Other aftercare (3 sources) Long-term current use of drug therapy; Translations: [Other terminal operations manager (current) drug therapy] Episodic Other connective tissue disease (1 source) History of cervical spine fusion; Translations: [Arthrodesis status] 09-20-2024 Episodic Other connective tissue disease (2 sources) Radicular pain; Translations: [Neuralgia and neuritis, unspecified] 07-29-2024 Episodic Other female genital disorders (1 source) Pruritus of vagina; Translations: [Other specified noninflammatory disorders of vagina] 09-22-2024 Episodic Other female genital disorders (1 source) Other specified noninflammatory disorders of vagina; Translations: [Other specified noninflammatory disorders of vagina] Onset: 09-22-2024 Episodic Other injuries and conditions due to external causes (3 sources) History of fall; Translations: [History of falling] Episodic Other nutritional; endocrine; and metabolic disorders (5 sources) Overweight; Translations: [Overweight] 02-19-2024 Episodic Other nutritional; endocrine; and metabolic disorders (1 source) Overweight; Translations: [Overweight] 03-14-2024 Episodic Other screening for suspected conditions (not mental disorders or infectious disease) (8 sources) Encounter for screening mammogram for malignant neoplasm of breast; Translations: [Patient encounter status] Onset: 05-16-2022 Episodic Prolapse of female genital organs (5 sources) Uterovaginal prolapse; Translations: [Uterovaginal prolapse, unspecified] Onset: 10-09-2020 10-09-2020 Chronic Residual codes; unclassified (3 sources) Postmenopausal state; Translations: [Asymptomatic menopausal state] Episodic Residual codes; unclassified (3 sources) Procedure not done; Translations: [Procedure and treatment not carried out because of patient's decision for unspecified reasons] Episodic Residual codes; unclassified (1 source) Asymptomatic menopausal state Episodic Spondylosis; intervertebral disc disorders; other back problems (3 sources) Cervical spondylosis; Translations: [Other spondylosis with radiculopathy, cervical region] 09-20-2024 Chronic Spondylosis; intervertebral disc disorders; other back problems (4 sources) Low back pain; Translations: [Low back pain, unspecified] Onset: 10-12-2018 07-29-2024 Episodic Thyroid disorders (16 sources) Autoimmune thyroiditis; Translations: [Thyroiditis] Onset: 03-01-2022 Chronic Thyroid disorders (1 source) Disorder of thyroid gland; Translations: [Disorder of thyroid, unspecified] 10-11-2020 Episodic Viral infection (6 sources) Herpes simplex; Translations: [...] vaccination and inoculation, Influenza] Onset: 01-06-2018 Episodic Unclassified (3 sources) Long-term current use of drug therapy; Translations: [Long-term (current) use of other medications] Onset: 06-21-2018 Urinary tract infections (3 sources) Acute cystitis; Translations: [Acute cystitis without hematuria] Onset: 09-29-2018 Episodic Results Test Name Value Interpretation Reference Range Facility Vaginitis DNA Probeon 2024 Zaida Negative Normal NEG [facility] Comment on above: Result Comment: for Zaida sp. Method of testing is a DNA probe intended for detection and identification of Zaida species, Gardnerella vaginalis, and Trichomonas vaginalis nucleic acid in vaginal fluid specimens from patients with symptoms of vaginitis/vaginosis. Performed By: #### V AGP #### [employer] [address] [place] [address] [id number] [employer] Unit Leader: Matthew España MD Gardnerella Positive Abnormal NEG [facility] Comment on above: Result Comment: for Gardnerella vaginalis Performed By: #### V AGP #### [employer] [address] [place] [address] [id number] [employer] Unit Leader: Matthew España MD Trichomonas Negative Normal NEG [facility] Comment on above: Result Comment: for Trichomonas Vaginalis Performed By: #### V AGP #### [employer] [address] [place] [address] [id number] [employer] Unit Leader: Matthew España MD Vaginitis DNA Probeon 2024 Source .VAGINAL SWAB Normal [facility] Comment on above: Performed By: #### V AGP #### [facility] [employer] [address] [place] [id number] Infantry Unit Leader: Matthew España MD Basophils Auto (Bld) [#/Vol] on 04-18-2024 Basophils (Bld) [#/Vol] Automated basophil count 0.0-0.1 [facility] Basophils/100 WBC Auto (Bld) on 04-18-2024 Basophils/100 WBC (Bld) Automated basophil % 0.2-2.0 [facility] Eosinophils/100 WBC Auto (Bl d)on 04-18-2024 Eosinophils/100 WBC (Bld) Automated eosinophil % Low 0.9-7.0 [facility] Erythrocyte distribution wid th Auto (RBC) [Ratio]on 04-18-2024 Erythrocyte distribution width (RBC) [Ratio] Erythrocyte distribution width [Ratio] by Automated count 11.0-15.0 [facility] Estimated glomerular filtrat ion rate (GFR) non- Americanon 04-18-2024 GFR/1.73 sq M.predicted among non-blacks MDRD (S/P/Bld) [Vol rate/Area] Estimated glomerular filtration rate (GFR) non- Low >=60 mL/min/1.73m 2 [facility] Hematocrit Auto (Bld) [Volum e fraction]on 04-18-2024 Hematocrit (Bld) [Volume fraction] Hematocrit [Volume Fraction] of Blood by Automated count 36.0-48.0 [facility] Hemoglobin [Mass/volume] in Bloodon 04-18-2024 Hemoglobin (Bld) [Mass/Vol] Hemoglobin [Mass/volume] in Blood 12.0-16.0 [facility] Laboratory - Chemistry and C hemistry - challengeon 04-18-2024 Calcium [Mass/Vol] 9.8 mg/dL 8.5-10.1 [facility] Chloride [Moles/Vol] 101 mmol/L 98-107 [facility] CO2 [Moles/Vol] 24.7 mmol/L 21.0-32.0 [facility] Creatinine [Mass/Vol] 1.02 mg/dL 0.55-1.02 [facility] GFR/1.73 sq M.predicted MDRD (S/P/Bld) [Vol rate/Area] mL/min/{1.73_m2} >=60 mL/min/1.73m 2 [facility] Glucose [Mass/Vol] 123 mg/dL High 74-106 [facility] Potassium [Moles/Vol] 3.6 mmol/L 3.5-5.1 [facility] Sodium [Moles/Vol] 136 mmol/L 136-145 [facility] Urea nitrogen [Mass/Vol] 13.0 mg/dL 7.0-18.0 [facility] Urea nitrogen/Creatinine [Mass ratio] 12.7 mg/mg [facility] Laboratory - Hematology and Cell countson 04-18-2024 Immature granulocytes/100 WBC (Bld) 0.2 % 0.0-0.5 [facility] Leukocytes [#/volume] correc nayla for nucleated erythrocytes in Blood by Automated counon 04-18-2024 WBC corrected for nucl RBC Auto (Bld) [#/Vol] Leukocytes [#/volume] corrected for nucleated erythrocytes in Blood by Automated coun High 4.0-11.0 [facility] Lymphocytes Auto (Bld) [#/Vo l]on 04-18-2024 Lymphocytes (Bld) [#/Vol] Lymphocytes [#/volume] in Blood by Automated count High 1.2-3.8 [facility] Lymphocytes/100 WBC Auto (Bl d)on 04-18-2024 Lymphocytes/100 WBC (Bld) Lymphocytes/100 leukocytes in Blood by Automated count 20.5-60.0 [facility] MCH Auto (RBC) [Entitic mass ]on 04-18-2024 MCH (RBC) [Entitic mass] MCH [Entitic mass] by Automated count 26.7-34.0 [facility] MCHC Auto (RBC) [Mass/Vol]on 04-18-2024 MCHC (RBC) [Mass/Vol] MCHC [Mass/volume] by Automated count 29.9-35.2 [facility] MCV Auto (RBC) [Entitic vol] on 04-18-2024 MCV (RBC) [Entitic vol] MCV [Entitic volume] by Automated count 81.0-99.0 [facility] Monocytes Auto (Bld) [#/Vol] on 04-18-2024 Monocytes (Bld) [#/Vol] Automated blood monocyte count 0.3-0.8 [facility] Monocytes/100 WBC Auto (Bld) on 04-18-2024 Monocytes/100 WBC (Bld) Automated monocyte % 1.7-12.0 [facility] Neutrophils Auto (Bld) [#/Vo l]on 04-18-2024 Neutrophils (Bld) [#/Vol] Neutrophils [#/volume] in Blood by Automated count High 1.4-6.5 [facility] Neutrophils/100 WBC Auto (Bl d)on 04-18-2024 Neutrophils/100 WBC (Bld) Automated neutrophil % 43.0-75.0 [facility] No Panel Informationon 04-18 Eosinophils # (Auto) 0.0 10 3/uL 0.0-0.7 [facility] Immature Granulocyte # (Auto) 0.02 10 3/uL 0.00-0.03 [facility] Platelet mean volume Auto (B ld) [Entitic vol]on 04-18-2024 Platelet mean volume (Bld) [Entitic vol] Platelet mean volume [Entitic volume] in Blood by Automated count 9.5-13.5 [facility] Platelets Auto (Bld) [#/Vol] on 04-18-2024 Platelets (Bld) [#/Vol] Platelets [#/volume] in Blood by Automated count 150-450 [facility] RBC Auto (Bld) [#/Vol]on RBC (Bld) [#/Vol] Erythrocytes [#/volume] in Blood by Automated count 4.20-5.40 [facility] Serum or plasma anion gap de terminationon 04-18-2024 Anion gap [Moles/Vol] Serum or plasma anion gap determination [facility] Basophils Auto (Bld) [#/Vol] on 03-08-2024 Basophils (Bld) [#/Vol] Automated basophil count 0.0-0.1 [facility] Basophils/100 WBC Auto (Bld) on 03-08-2024 Basophils/100 WBC (Bld) Automated basophil % 0.2-2.0 [facility] Cholesterol in LDL Calc [Mas s/Vol]on 03-08-2024 Cholesterol in LDL [Mass/Vol] Cholesterol in LDL [Mass/volume] in Serum or Plasma by calculation [facility] Comment on above: <100 mg/dl [id number] 0-129 mg/dl NEAR OR ABOVE [id number] mg/dl BORDERLINE [id number] mg/dl HIGH>190 mg/dl VERY HIGH Cholesterol in VLDL Calc [Ma ss/Vol]on 03-08-2024 Cholesterol in VLDL [Mass/Vol] Cholesterol in VLDL [Mass/volume] in Serum or Plasma by calculation [facility] Eosinophils/100 WBC Auto (Bl d)on 03-08-2024 Eosinophils/100 WBC (Bld) Automated eosinophil % 0.9-7.0 [facility] Erythrocyte distribution wid th Auto (RBC) [Ratio]on 03-08-2024 Erythrocyte distribution width (RBC) [Ratio] Erythrocyte distribution width [Ratio] by Automated count 11.0-15.0 [facility] Estimated glomerular filtrat ion rate (GFR) non- Americanon 03-08-2024 GFR/1.73 sq M.predicted among non-blacks MDRD (S/P/Bld) [Vol rate/Area] Estimated glomerular filtration rate (GFR) non- >=60 mL/min/1.73m 2 [facility] Globulin Calc (S) [Mass/Vol] on 03-08-2024 Globulin (S) [Mass/Vol] Serum globulin measurement by calculation (mass/volume) [facility] Hematocrit Auto (Bld) [Volum e fraction]on 03-08-2024 Hematocrit (Bld) [Volume fraction] Hematocrit [Volume Fraction] of Blood by Automated count 36.0-48.0 [facility] Hemoglobin [Mass/volume] in Bloodon 03-08-2024 Hemoglobin (Bld) [Mass/Vol] Hemoglobin [Mass/volume] in Blood 12.0-16.0 [facility] Laboratory - Chemistry and C hemistry - challengeon 03-08-2024 Albumin [Mass/Vol] 3.7 g/dL 3.4-5.0 [facility] ALP [Catalytic activity/Vol] 76 U/L 46-116 [facility] ALT [Catalytic activity/Vol] 56 U/L 14-59 [facility] AST [Catalytic activity/Vol] 45 U/L High 15-37 [facility] Bilirubin [Mass/Vol] 0.5 mg/dL 0.2-1.0 [facility] Calcium [Mass/Vol] 9.2 mg/dL 8.5-10.1 [facility] Chloride [Moles/Vol] 106 mmol/L 98-107 [facility] Cholesterol [Mass/Vol] 151 mg/dL <=200 [facility] Cholesterol in HDL [Mass/Vol] 37 mg/dL Low 40-60 [facility] Comment on above: > or =60 mg/dl - LOW CARDIOVASCULAR RISK<40 mg/dl - HIGH CARDIOVASCULAR RISK CO2 [Moles/Vol] 27.0 mmol/L 21.0-32.0 [facility] Creatinine [Mass/Vol] 0.91 mg/dL 0.55-1.02 [facility] GFR/1.73 sq M.predicted MDRD (S/P/Bld) [Vol rate/Area] mL/min/{1.73_m2} >=60 mL/min/1.73m 2 [facility] Glucose [Mass/Vol] 107 mg/dL High 74-106 [facility] Potassium [Moles/Vol] 4.0 mmol/L 3.5-5.1 [facility] Protein [Mass/Vol] 7.6 g/dL 6.4-8.2 [facility] Sodium [Moles/Vol] 142 mmol/L 136-145 [facility] Triglyceride [Mass/Vol] 149 mg/dL <=150 [facility] TSH Qn 1.900 m[IU]/L 0.358-3.740 [facility] Urea nitrogen [Mass/Vol] 13.0 mg/dL 7.0-18.0 [facility] Urea nitrogen/Creatinine [Mass ratio] 14.3 mg/mg [facility] Laboratory - Hematology and Cell countson 03-08-2024 Immature granulocytes/100 WBC (Bld) 0.1 % 0.0-0.5 [facility] Leukocytes [#/volume] correc nayla for nucleated erythrocytes in Blood by Automated counon 03-08-2024 WBC corrected for nucl RBC Auto (Bld) [#/Vol] Leukocytes [#/volume] corrected for nucleated erythrocytes in Blood by Automated coun 4.0-11.0 [facility] Lymphocytes Auto (Bld) [#/Vo l]on 03-08-2024 Lymphocytes (Bld) [#/Vol] Lymphocytes [#/volume] in Blood by Automated count 1.2-3.8 [facility] Lymphocytes/100 WBC Auto (Bl d)on 03-08-2024 Lymphocytes/100 WBC (Bld) Lymphocytes/100 leukocytes in Blood by Automated count 20.5-60.0 [facility] MCH Auto (RBC) [Entitic mass ]on 03-08-2024 MCH (RBC) [Entitic mass] MCH [Entitic mass] by Automated count 26.7-34.0 [facility] MCHC Auto (RBC) [Mass/Vol]on 03-08-2024 MCHC (RBC) [Mass/Vol] MCHC [Mass/volume] by Automated count 29.9-35.2 [facility] MCV Auto (RBC) [Entitic vol] on 03-08-2024 MCV (RBC) [Entitic vol] MCV [Entitic volume] by Automated count 81.0-99.0 [facility] Monocytes Auto (Bld) [#/Vol] on 03-08-2024 Monocytes (Bld) [#/Vol] Automated blood monocyte count 0.3-0.8 [facility] Monocytes/100 WBC Auto (Bld) on 03-08-2024 Monocytes/100 WBC (Bld) Automated monocyte % 1.7-12.0 [facility] Neutrophils Auto (Bld) [#/Vo l]on 03-08-2024 Neutrophils (Bld) [#/Vol] Neutrophils [#/volume] in Blood by Automated count 1.4-6.5 [facility] Neutrophils/100 WBC Auto (Bl d)on 03-08-2024 Neutrophils/100 WBC (Bld) Automated neutrophil % Low 43.0-75.0 [facility] No Panel Informationon 03-08 Eosinophils # (Auto) 0.2 10 3/uL 0.0-0.7 [facility] Immature Granulocyte # (Auto) 0.01 10 3/uL 0.00-0.03 [facility] Platelet mean volume Auto (B ld) [Entitic vol]on 03-08-2024 Platelet mean volume (Bld) [Entitic vol] Platelet mean volume [Entitic volume] in Blood by Automated count 9.5-13.5 [facility] Platelets Auto (Bld) [#/Vol] on 03-08-2024 Platelets (Bld) [#/Vol] Platelets [#/volume] in Blood by Automated count 150-450 [facility] RBC Auto (Bld) [#/Vol]on RBC (Bld) [#/Vol] Erythrocytes [#/volume] in Blood by Automated count 4.20-5.40 [facility] Serum or plasma albumin/glob ulin mass ratioon 03-08-2024 Albumin/Globulin [Mass ratio] Serum or plasma albumin/globulin mass ratio [facility] Serum or plasma anion gap de terminationon 03-08-2024 Anion gap [Moles/Vol] Serum or plasma anion gap determination [facility] Serum or plasma total choles terol/high density lipoprotein (HDL) cholesterol mass lai 03-08-2024 Cholesterol.total/Ch olesterol in HDL [Mass ratio] Serum or plasma total cholesterol/high density lipoprotein (HDL) cholesterol mass rat [facility] Comment on above: 3.3 - 4.4 LOW RISK4. 4 - 7.1 AVERAGE RISK7.1 - 11.0 MODERATE RISK>11.0 HIGH RISK GEOVANNI - TSHon 06-05-2022 TSH 0.299 uIU/mL Critically low 0.358-3.740 [facility] Comment on above: Performed By: #### D ATTSH #### [facility] [address] [address] [address] Kali Haynes TSH RANGE SEE BELOW Normal [facility] Comment on above: Result Comment: <0.3 4 UIU/ml HYPERTHYROID 0.34-5.60 UIU/ml EUTHYROID >5.60 UIU/ml HYPOTHYROID Performed By: #### D ATTSH #### [facility] [address] [address] [address] Kali Haynes MG MAMM SCREEN 3D IFEANYI CADon 05-16-2022 MG MAMM SCREEN 3D IFEANYI CAD Patient: EPI DAILEY Exam Date: 05/16/2022 : 1950 Gender:F Ordering : DR AL SOTO D.O. Admission #: [id number] Family : Order #: [id number] CLICK HERE TO VIEW EXAM RADIOLOGY REPORT [...] Treatments None Family Cancers None LOCATION: [facility] BREAST COMPOSITION: Heterogeneously dense,which may obscure [...] M.D. on 05/16/2022 at 14:31 Normal [facility] CBC AUTO DIFFon 02-24-2022 BASO # 0.0 103/ul Normal 0.0-0.1 [facility] Comment on above: Performed By: #### C BC #### [facility] [address] [place], [place] [address] Dr. Kali Haynes Basophils/100 WBC (Bld) 0.5 % Normal 0.2-2.0 [facility] Comment on above: Performed By: #### C BC #### [facility] [address] [place] [address] Dr. Kali Haynes EO # 0.2 103/ul Normal 0.0-0.7 [facility] Comment on above: Performed By: #### C BC #### [facility] [address] [place] [address] Dr. Kali Haynes Eosinophils/100 WBC (Bld) 2.8 % Normal 0.9-7.0 [facility] Comment on above: Performed By: #### C BC #### [facility] [address] [place] [address] Dr. Kali Haynes Erythrocyte distribution width (RBC) [Ratio] 13.9 % Normal 11.0-15.0 [facility] Comment on above: Performed By: #### C BC #### [facility] [address] [place] [address] Dr. Kali Haynes Hematocrit (Bld) [Volume fraction] 43.0 % Normal 36.0-48.0 [facility] Comment on above: Performed By: #### C BC #### [facility] [address] [place] [address] Dr. Kali Haynes Hemoglobin (Bld) [Mass/Vol] 14.5 g/dL Normal 12.0-16.0 [facility] Comment on above: Performed By: #### C BC #### [facility] [address] [place] [address] Dr. Kali Haynes IG # 0.01 10e3/ul Normal 0.00-0.03 [facility] Comment on above: Performed By: #### C BC #### [facility] [address] [place] [address] Dr. Kali Haynes IG % 0.2 % Normal 0.0-0.5 [facility] Comment on above: Performed By: #### C BC #### [facility] [address] [place] [address] Dr. Kali Haynes LYMPH # 3.9 103/ul Critically high 1.2-3.8 [facility] Comment on above: Performed By: #### C BC #### [facility] [address] [place] [address] Dr. Kali Haynes Lymphocytes/100 WBC (Bld) 59.7 % Normal 20.5-60.0 [facility] Comment on above: Performed By: #### C BC #### [facility] [address] [place] [address] Dr. Kali Haynes MANUAL DIFF REQ NO Normal [facility] Comment on above: Performed By: #### C BC #### [facility] [address] [place] [address] Dr. Kali Haynes MCH (RBC) [Entitic mass] 29.3 pg Normal 26.7-34.0 [facility] Comment on above: Performed By: #### C BC #### [facility] [address] [place] [address] Dr. Kali Haynes MCHC (RBC) [Mass/Vol] 33.7 g/dL Normal 29.9-35.2 [facility] Comment on above: Performed By: #### C BC #### [facility] [address] [place] [address] Dr. Kali Haynes MCV (RBC) [Entitic vol] 86.9 fL Normal 81.0-99.0 [facility] Comment on above: Performed By: #### C BC #### [facility] [address] [place] [address] Dr. Kali Haynes MONO # 0.4 103/ul Normal 0.3-0.8 [facility] Comment on above: Performed By: #### C BC #### [facility] [address] [place] [address] Dr. Kali Haynes Monocytes/100 WBC (Bld) 6.5 % Normal 1.7-12.0 [facility] Comment on above: Performed By: #### C BC #### [facility] [address] [place] [address] Dr. Kali Haynes NEUT # 2.0 103/ul Normal 1.4-6.5 [facility] Comment on above: Performed By: #### C BC #### [facility] [address] [place] [address] Dr. Kali Haynes Neutrophils/100 WBC (Bld) 30.3 % Critically low 43.0-75.0 [facility] Comment on above: Performed By: #### C BC #### [facility] [address] [place] [address] Dr. Kali Haynes Platelet mean volume (Bld) [Entitic vol] 11.1 fL Normal 9.5-13.5 [facility] Comment on above: Performed By: #### C BC #### [facility] [address] [place] [address] Dr. Kali Haynes PLT 221 103/ul Normal 150-450 [facility] Comment on above: Performed By: #### C BC #### [facility] [address] [place] [address] Dr. Kali Haynes RBC 4.95 106/ul Normal 4.20-5.40 [facility] Comment on above: Performed By: #### C BC #### [facility] [address] [place] [address] Dr. Kali Haynes WBC 6.5 103/ul Normal 4.0-11.0 [facility] Comment on above: Performed By: #### C BC #### [facility] [address] [place] [address] Dr. Kali Haynes LIPID PROFILEon 02-24-2022 CHOL-HDL RATIO NORM SEE BELOW Normal [facility] Comment on above: Result Comment: 3.3 - 4.4 LOW RISK 4.4 - 7.1 AVERAGE RISK 7.1 - 11.0 MODERATE RISK >11.0 HIGH RISK Performed By: #### T SH, BMP, LIPID, ALT #### [facility] [address] [place] [address] Dr. Kali Haynes Cholesterol [Mass/Vol] 151 mg/dL Normal <=200 [facility] Comment on above: Performed By: #### T SH, BMP, LIPID, ALT #### [facility] [address] [place] [address] Dr. Kali Haynes Cholesterol in HDL [Mass/Vol] 39 mg/dL Critically low 40-60 [facility] Comment on above: Performed By: #### T SH, BMP, LIPID, ALT #### [facility] [address] [address] [address] Kali Haynes Cholesterol in LDL [Mass/Vol] 85.6 mg/dL Normal [facility] Comment on above: Performed By: #### T SH, BMP, LIPID, ALT #### [facility] [address] [address] [address] Kali Haynes Cholesterol.total/Ch olesterol in HDL [Mass ratio] 3.9 {ratio} Normal [facility] Comment on above: Performed By: #### T SH, BMP, LIPID, ALT #### [facility] [address] [place] [address] Dr. Kali Haynes HDL NORMAL > or = 60 mg/dl - LO W CARDIOVASCULAR RISK <40 mg/dl - HIGH CARDIOVASCULAR RISK Normal [facility] Comment on above: Performed By: #### T SH, BMP, LIPID, ALT #### [facility] [address] [address] [address] Kali Haynes LDL CALC NORMAL SEE BELOW Normal [facility] Comment on above: Result Comment: <100 mg/dl OPTIMAL 100 - 129 mg/dl NEAR OR ABOVE OPTIMAL 130 - 159 mg/dl BORDERLINE HIGH 160 - 189 mg/dl HIGH >190 mg/dl VERY HIGH Performed By: #### T SH, BMP, LIPID, ALT #### [facility] [address] [place] [address] Dr. Kali Haynes Triglyceride [Mass/Vol] 132 mg/dL Normal <=150 [facility] Comment on above: Performed By: #### T SH, BMP, LIPID, ALT #### [facility] [address] [address] [address] Kali Haynes VLDL CALC 26.4 mg/dL Normal [facility] Comment on above: Performed By: #### T SH, BMP, LIPID, ALT #### [facility] [address] [address] [address] Kali Haynes PROF CHEM 8 (BAS METB)on Anion gap [Moles/Vol] 12.5 mmol/L Normal [facility] Comment on above: Performed By: #### T SH, BMP, LIPID, ALT #### [facility] [address] [address] [address] Kali Haynes Calcium [Mass/Vol] 9.4 mg/dL Normal 8.5-10.1 [facility] Comment on above: Performed By: #### T SH, BMP, LIPID, ALT #### [facility] [address] [address] [address] Kali Haynes Chloride [Moles/Vol] 103 mmol/L Normal 98-107 [facility] Comment on above: Performed By: #### T SH, BMP, LIPID, ALT #### [facility] [address] [place] [address] Dr. Kali Haynes CO2 [Moles/Vol] 26.3 mmol/L Normal 21.0-32.0 [facility] Comment on above: Performed By: #### T SH, BMP, LIPID, ALT #### [facility] [address] [place] [address] Dr. Kali Haynes Creatinine [Mass/Vol] 0.82 mg/dL Normal 0.55-1.02 [facility] Comment on above: Performed By: #### T SH, BMP, LIPID, ALT #### [facility] [address] [place] [address] Dr. Kali Haynes EGFR-AF [facility] >60 Normal >=60 [facility] Comment on above: Performed By: #### T SH, BMP, LIPID, ALT #### [facility] [address] [place] [address] Dr. Kali Haynes EGFR-NON AF [facility] >60 Normal >=60 [facility] Comment on above: Performed By: #### T SH, BMP, LIPID, ALT #### [facility] [address] [place] [address] Dr. Kali Haynes Glucose [Mass/Vol] 110 mg/dL Critically high 74-106 [facility] Comment on above: Performed By: #### T SH, BMP, LIPID, ALT #### [facility] [address] [place] [address] Dr. Kali Haynes Potassium [Moles/Vol] 3.8 mmol/L Normal 3.5-5.1 [facility] Comment on above: Performed By: #### T SH, BMP, LIPID, ALT #### [facility] [address] [place] [address] Dr. Kali Haynes Sodium [Moles/Vol] 138 mmol/L Normal 136-145 [facility] Comment on above: Performed By: #### T SH, BMP, LIPID, ALT #### [facility] [address] [place] [address] Dr. Kali Haynes Urea nitrogen [Mass/Vol] 17.0 mg/dL Normal 7.0-18.0 [facility] Comment on above: Performed By: #### T SH, BMP, LIPID, ALT #### [facility] [address] [place] [address] Dr. Kali Haynes Urea nitrogen/Creatinine [Mass ratio] 20.7 mg/mg Normal [facility] Comment on above: Performed By: #### T SH, BMP, LIPID, ALT #### [facility] [address] [place] [address] Dr. [facility] ALT [Catalytic activity/Vol] 36 U/L Normal 14-59 [facility] Comment on above: Performed By: #### T SH, BMP, LIPID, ALT #### [facility] [address] [place] [address] Dr. Kali Haynes TSHon 02-24-2022 TSH 4.788 uIU/mL Critically high 0.358-3.740 [facility] Comment on above: Performed By: #### T SH, BMP, LIPID, ALT #### [facility] [address] [place] [address] Dr. Kali Haynes CBC AUTO DIFFon 08-21-2021 BASO # 0.0 103/ul Normal 0.0-0.1 [facility] Comment on above: Performed By: #### C BC #### [facility] [address] [place] [address] Dr. Kali Haynes Basophils/100 WBC (Bld) 0.5 % Normal 0.2-2.0 [facility] Comment on above: Performed By: #### C BC #### [facility] [address] [place] [address] Dr. Kali Haynes EO # 0.2 103/ul Normal 0.0-0.7 [facility] Comment on above: Performed By: #### C BC #### [facility] [address] [place] [address] Dr. Kali Haynes Eosinophils/100 WBC (Bld) 2.6 % Normal 0.9-7.0 [facility] Comment on above: Performed By: #### C BC #### [facility] [address] [place] [address] Dr. Kali Haynes Erythrocyte distribution width (RBC) [Ratio] 14.4 % Normal 11.0-15.0 [facility] Comment on above: Performed By: #### C BC #### [facility] [address] [place] [address] Dr. Kali Haynes Hematocrit (Bld) [Volume fraction] 40.4 % Normal 36.0-48.0 [facility] Comment on above: Performed By: #### C BC #### [facility] [address] [place] [address] Dr. Kali Haynes Hemoglobin (Bld) [Mass/Vol] 13.3 g/dL Normal 12.0-16.0 [facility] Comment on above: Performed By: #### C BC #### [facility] [address] [place] [address] Dr. Kali Haynes IG # 0.01 10e3/ul Normal 0.00-0.03 [facility] Comment on above: Performed By: #### C BC #### [facility] [address] [place] [address] Dr. Kali Haynes IG % 0.2 % Normal 0.0-0.5 [facility] Comment on above: Performed By: #### C BC #### [facility] [address] [place] [address] Dr. Kali Haynes LYMPH # 3.0 103/ul Normal 1.2-3.8 [facility] Comment on above: Performed By: #### C BC #### [facility] [address] [place] [address] Dr. Kali Haynes Lymphocytes/100 WBC (Bld) 48.6 % Normal 20.5-60.0 [facility] Comment on above: Performed By: #### C BC #### [facility] [address] [place] [address] Dr. Kali Haynes MANUAL DIFF REQ NO Normal [facility] Comment on above: Performed By: #### C BC #### [facility] [address] [place] [address] Dr. Kali Haynes MCH (RBC) [Entitic mass] 29.0 pg Normal 26.7-34.0 [facility] Comment on above: Performed By: #### C BC #### [facility] [address] [place] [address] Dr. Kali Haynes MCHC (RBC) [Mass/Vol] 32.9 g/dL Normal 29.9-35.2 [facility] Comment on above: Performed By: #### C BC #### [facility] [address] [place] [address] Dr. Kali Haynes MCV (RBC) [Entitic vol] 88.0 fL Normal 81.0-99.0 [facility] Comment on above: Performed By: #### C BC #### [facility] [address] [place] [address] Dr. Kali Haynes MONO # 0.5 103/ul Normal 0.3-0.8 [facility] Comment on above: Performed By: #### C BC #### [facility] [address] [place] [address] Dr. Kali Haynes Monocytes/100 WBC (Bld) 7.4 % Normal 1.7-12.0 [facility] Comment on above: Performed By: #### C BC #### [facility] [address] [place] [address] Dr. Kali Haynes NEUT # 2.5 103/ul Normal 1.4-6.5 [facility] Comment on above: Performed By: #### C BC #### [facility] [address] [place] [address] Dr. Kali Haynes Neutrophils/100 WBC (Bld) 40.7 % Critically low 43.0-75.0 [facility] Comment on above: Performed By: #### C BC #### [facility] [address] [place] [address] Dr. Kali Haynes Platelet mean volume (Bld) [Entitic vol] 11.3 fL Normal 9.5-13.5 [facility] Comment on above: Performed By: #### C BC #### [facility] [address] [place] [address] Dr. Kali Haynes PLT 218 103/ul Normal 150-450 [facility] Comment on above: Performed By: #### C BC #### [facility] [address] [place] [address] Dr. Kali Haynes RBC 4.59 106/ul Normal 4.20-5.40 [facility] Comment on above: Performed By: #### C BC #### [facility] [address] [place] [address] Dr. Kali Haynes WBC 6.2 103/ul Normal 4.0-11.0 [facility] Comment on above: Performed By: #### C BC #### [facility] [address] [place] [address] Dr. Kali Haynes Auth for Release of Medical Recordson 03-30-2020 Auth for Release of Medical Records .[id number] 0CD:127 [facility] Auth for Release of Medical Records ..[id number] 0CD:127 [facility] Retail - Clinical Noteon Retail - Clinical Note [id number] CD:127 [facility] BASIC METABOLIC PANELon 10-22 Calcium [Mass/Vol] 9.4 mg/dL Normal 8.6-10.[address] [facility] Comment on above: Order Comment: No: D o not add to previous draw Performed By: #### 0 0071, 65480, 50741 #### [facility] [address] [place] [address], [place] Chloride [Moles/Vol] 102 mmol/L Normal 98-107 [facility] Comment on above: Order Comment: No: D o not add to previous draw Performed By: #### 0 0071, 11565, 90267 #### [facility] [address] [place] [address], [place] CO2 [Moles/Vol] 27 mmol/L Normal 21-31 [facility] Comment on above: Order Comment: No: D o not add to previous draw Performed By: #### 0 0071, 34882, 24169 #### [facility] [address] [place] [address], [place] Creatinine [Mass/Vol] 0.63 mg/dL Normal 0.60-1.20 [facility] Comment on above: Order Comment: No: D o not add to previous draw Performed By: #### 0 0071, 86926, 16481 #### [facility] [address] [place] [address], [place] GFR/1.73 sq M predicted among blacks MDRD (S/P/Bld) [Vol rate/Area] mL/min/{1.73_m2} Normal >60 [facility] Comment on above: Order Comment: No: D o not add to previous draw Performed By: #### 0 0071, 03991, 48846 #### [facility] [address] [place] [address], [place] GFR/1.73 sq M predicted among non-blacks MDRD (S/P/Bld) [Vol rate/Area] mL/min/{1.73_m2} Normal >60 [facility] Comment on above: Order Comment: No: D o not add to previous draw Performed By: #### 0 0071, 75858, 08097 #### [facility] [address] [place] [address], [place] Glucose [Mass/Vol] 129 mg/dL High 70-100 [facility] Comment on above: Order Comment: No: D o not add to previous draw Performed By: #### 0 0071, 31855, 88572 #### [facility] [address] [place] [address], [place] Potassium [Moles/Vol] 3.2 mmol/L Low 3.5-5.1 [facility] Comment on above: Order Comment: No: D o not add to previous draw Performed By: #### 0 0071, 41041, 90671 #### [facility] [address] [place] [address], [place] Sodium [Moles/Vol] 137 mmol/L Normal 136-145 [facility] Comment on above: Order Comment: No: D o not add to previous draw Performed By: #### 0 0071, 11750, 20403 #### [facility] [address] [place] [address], [place] Urea nitrogen [Mass/Vol] 11 mg/dL Normal 7-25 [facility] Comment on above: Order Comment: No: D o not add to previous draw Performed By: #### 0 0071, 77057, 79722 #### [facility] [address] [place] [address], [place] CBC COMPLETE BLOOD COUNTon 0 - Erythrocyte distribution width (RBC) [Ratio] 15.2 % High 11.5-15.0 [facility] Comment on above: Order Comment: No: D o not add to previous draw Performed By: #### 0 0071, 20186, 23767 #### [facility] [address] [place] [address], [place] Hematocrit (Bld) [Volume fraction] 37.7 % Normal 36.0-45.0 [facility] Comment on above: Order Comment: No: D o not add to previous draw Performed By: #### 0 0071, 21991, 36692 #### [facility] [address] [place] [address], [facility] Hemoglobin (Bld) [Mass/Vol] 12.7 g/dL Normal 12.0-15.0 [facility] Comment on above: Order Comment: No: D o not add to previous draw Performed By: #### 0 0071, 48398, 00158 #### [facility] [address] [place] [address], [facility] MCH (RBC) [Entitic mass] 28.7 pg Normal 27.0-33.0 [facility] Comment on above: Order Comment: No: D o not add to previous draw Performed By: #### 0 0071, 32147, 92370 #### [facility] [address] [place] [address], [facility] MCHC (RBC) [Mass/Vol] 33.7 g/dL Normal 32.0-35.0 [facility] Comment on above: Order Comment: No: D o not add to previous draw Performed By: #### 0 0071, 05710, 30398 #### [facility] [address] [facility] [facility] [place] [address], [facility] MCV (RBC) [Entitic vol] 85.1 fL Normal 82.0-98.0 [facility] Comment on above: Order Comment: No: D o not add to previous draw Performed By: #### 0 0071, 58013, 38226 #### [facility] [address] [facility] [place] [address], [facility] Nucleated RBC/100 WBC (Bld) [Ratio] 0 % Normal 0-0 [facility] Comment on above: Order Comment: No: D o not add to previous draw Performed By: #### 0 0071, 70623, 84519 #### [facility] [address] [place] [address], [facility] PLAT CNT 237 10*3/uL Normal 150-400 [facility] Comment on above: Order Comment: No: D o not add to previous draw Performed By: #### 0 0071, 50509, 91037 #### [facility] [address] [place] [address], [facility] RBC (Bld) [#/Vol] 4.43 10*6/uL Normal 3.80-5.00 [facility] Comment on above: Order Comment: No: D o not add to previous draw Performed By: #### 0 0071, 75344, 25791 #### [facility] [address] [place] [address], [facility] WBC (Bld) [#/Vol] 10.34 10*3/uL Normal 4.00-10.60 [facility] Comment on above: Order Comment: No: D o not add to previous draw Performed By: #### 0 0071, 69275, 20346 #### [facility] [address] [facility] [place], [place] [id number] [place] [address] Cardiovascular Lab Reporton 11-16-2018 Cardiovascular Lab Report [facility] Patient Name: [facility] MR #: [id number] Department of Physician: Isaura Ching M.D. Division of Service Date: 11/15/2018 Cardiology Birthdate: 1950 Adult Cardiovascular Room #: 3AB [id number] Services [employer] [facility] [address] [place], [place] [address] Cardiovascular Laboratory Report FINAL IMPRESSIONS: 1. 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 This does not represent an acute coronary syndrome and the patient does not require dual antiplatelet therapy. 2. Aggressive cardiovascular risk factor modification. 3. Optimization of medical management; given plaque disease, aspirin, uerzdulu-pz-ylkn intensity statin therapy, a beta mar. If left ventricular hypertrophy is conformed, would recommend addition of an angiotension concerting enzyme inhibitor or receptor amr. 4. Further recommendations deferred to the inpatient [...] right internal jugular vein was obtained. A 6-Ukrainian 11 cm sheath was inserted without difficulty. [...] to access the right radial artery. A 6-Ukrainian Glidesheath was inserted without difficulty. Bilateral selective [...] Camilo M.D. Date Trans: 11/16/2018 09:01 Tressa/alisa [id number] Normal [facility] LIVER BATTERYon 11-16-2018 Albumin [Mass/Vol] 3.6 g/dL Normal 3.5-5.7 [facility] Comment on above: Order Comment: No: D o not add to previous draw Performed By: #### 0 0071, 35656, 72580 #### [facility] [address] [place] [address], [facility] ALKALINE PHOSPH 54 IU/L Normal 34-104 [facility] Comment on above: Order Comment: No: D o not add to previous draw Performed By: #### 0 0071, 47445, 13090 #### [facility] [address] [place] [address], [place] ALT [Catalytic activity/Vol] 63 U/L High 7-52 [facility] Comment on above: Order Comment: No: D o not add to previous draw Performed By: #### 0 0071, 79486, 11796 #### [facility] [address] [place] [address], [place] AST [Catalytic activity/Vol] 19 U/L Normal 13-39 [facility] Comment on above: Order Comment: No: D o not add to previous draw Performed By: #### 0 0071, 50423, 00569 #### [facility] [address] [place] [address], [place] Bilirubin [Mass/Vol] 0.5 mg/dL Normal 0.3-1.0 [facility] Comment on above: Order Comment: No: D o not add to previous draw Performed By: #### 0 0071, 12135, 20875 #### [facility] [address] [place] [address], [place] Bilirubin.direct [Mass/Vol] 0.1 mg/dL Normal 0.0-0.2 [facility] Comment on above: Order Comment: No: D o not add to previous draw Performed By: #### 0 0071, 32865, 73880 #### [facility] [address] [place] [address], [place] Protein [Mass/Vol] 6.5 g/dL Normal 6.0-8.3 [facility] Comment on above: Order Comment: No: D o not add to previous draw Performed By: #### 0 0071, 76143, 73624 #### [facility] [address] [place] [address], [place] MAGNESIUM BLOODon 11-16-2018 Magnesium [Mass/Vol] 1.8 mg/dL Low 1.9-2.7 [facility] Comment on above: Order Comment: No: D o not add to previous draw Performed By: #### 0 0071, 42202, 53593 #### [facility] [address] [place] [address], [place] PHOSPHORUS BLOODon 9 Phosphate [Mass/Vol] 3.1 mg/dL Normal 2.5-5.0 [facility] Comment on above: Order Comment: No: D o not add to previous draw Performed By: #### 0 0071, 42138, 92984 #### [facility] [address] [place] [address], [place] BASIC METABOLIC PANELon 10-22 Calcium [Mass/Vol] 9.0 mg/dL Normal 8.6-10.[address] [facility] Comment on above: Order Comment: No: D o not add to previous draw Performed By: #### 0 0071, 69619, 77663 #### [facility] [address] [place] [address], [place] Chloride [Moles/Vol] 103 mmol/L Normal 98-107 [facility] Comment on above: Order Comment: No: D o not add to previous draw Performed By: #### 0 0071, 56322, 57965 #### [facility] [address] [place] [address], [place] CO2 [Moles/Vol] 25 mmol/L Normal 21-31 [facility] Comment on above: Order Comment: No: D o not add to previous draw Performed By: #### 0 0071, 25511, 70266 #### [facility] [address] [place] [address], [place] Creatinine [Mass/Vol] 0.65 mg/dL Normal 0.60-1.20 [facility] Comment on above: Order Comment: No: D o not add to previous draw Performed By: #### 0 0071, 16811, 43024 #### [facility] [address] [place] [address], [place] GFR/1.73 sq M predicted among blacks MDRD (S/P/Bld) [Vol rate/Area] mL/min/{1.73_m2} Normal >60 [facility] Comment on above: Order Comment: No: D o not add to previous draw Performed By: #### 0 0071, 29080, 52054 #### [facility] [address] [place] [address], [place] GFR/1.73 sq M predicted among non-blacks MDRD (S/P/Bld) [Vol rate/Area] mL/min/{1.73_m2} Normal >60 [facility] Comment on above: Order Comment: No: D o not add to previous draw Performed By: #### 0 0071, 17549, 84087 #### [facility] [address] [place] [address], [place] Glucose [Mass/Vol] 192 mg/dL High 70-100 [facility]: Order Comment: No: D o not add to previous draw Performed By: #### 0 0071, 04808, 79813 #### [facility] [address] [place] [address], [place] Potassium [Moles/Vol] 3.0 mmol/L Low 3.5-5.1 [facility] Comment on above: Order Comment: No: D o not add to previous draw Performed By: #### 0 0071, 66243, 42628 #### [facility] [address] [place] [address], [place] Sodium [Moles/Vol] 138 mmol/L Normal 136-145 [facility] Comment on above: Order Comment: No: D o not add to previous draw Performed By: #### 0 0071, 60780, 72707 #### [facility] [address] [place] [address], [place] Urea nitrogen [Mass/Vol] 10 mg/dL Normal 7-25 [facility] Comment on above: Order Comment: No: D o not add to previous draw Performed By: #### 0 0071, 10752, 33725 #### [facility] [address] [place] [address], [place] LIVER BATTERYon 11-15-2018 Albumin [Mass/Vol] 3.3 g/dL Low 3.5-5.[address] [facility] Comment on above: Order Comment: No: D o not add to previous draw Performed By: #### 0 0071, 24825, 46892 #### [facility] [address] [place] [address], [place] ALKALINE PHOSPH 51 IU/L Normal 34-104 [facility] Comment on above: Order Comment: No: D o not add to previous draw Performed By: #### 0 0071, 13943, 19869 #### [facility] [address] [place] [address], [place] ALT [Catalytic activity/Vol] 70 U/L High 7-52 [facility] Comment on above: Order Comment: No: D o not add to previous draw Performed By: #### 0 0071, 37081, 10867 #### [facility] [address] [place] [address], [place] AST [Catalytic activity/Vol] 22 U/L Normal 13-39 [facility] Comment on above: Order Comment: No: D o not add to previous draw Performed By: #### 0 0071, 10527, 32770 #### [facility] [address] [place] [address], [place] Bilirubin [Mass/Vol] 0.4 mg/dL Normal 0.3-1.0 [facility] Comment on above: Order Comment: No: D o not add to previous draw Performed By: #### 0 0071, 73272, 84278 #### [facility] [address] [place] [address], [place] Bilirubin.direct [Mass/Vol] 0.1 mg/dL Normal 0.0-0.2 [facility] Comment on above: Order Comment: No: D o not add to previous draw Performed By: #### 0 0071, 64978, 17000 #### [facility] [address] [place] [address], [facility] Protein [Mass/Vol] 6.2 g/dL Normal 6.0-8.3 [facility] Comment on above: Order Comment: No: D o not add to previous draw Performed By: #### 0 0071, 81898, 01925 #### [facility] [address] [facility] [address] UFH HEPARIN ASSAYon 11-16-19 19 UNFRACTIONATED HEPARIN 0.71 IU/mL High 0.30-0.70 [facility] Comment on above: Result Comment: Dora roxaban and Apixaban will interfere with the anti Xa assay used to monitor UFH and LMWH. Performed By: #### 3 0965 #### [facility] [address] BASIC METABOLIC PANELon 10-22 Calcium [Mass/Vol] 8.9 mg/dL Normal 8.6-10.3 [facility] Comment on above: Order Comment: No: D o not add to previous draw Criteria for reflexing a culture was not met. Please call the lab at [phone] within 24 hours of collection time if culture is needed Performed By: #### 3 0965 #### [facility] [address] [place] [address], [facility] Chloride [Moles/Vol] 105 mmol/L Normal 98-107 [facility] Comment on above: Order Comment: No: D o not add to previous draw Criteria for reflexing a culture was not met. Please call the lab at [phone] within 24 hours of collection time if culture is needed Performed By: #### 3 0965 #### [facility] [address] [place] [address], [facility] CO2 [Moles/Vol] 25 mmol/L Normal 21-31 [facility] Comment on above: Order Comment: No: D o not add to previous draw Criteria for reflexing a culture was not met. Please call the lab at [phone] within 24 hours of collection time if culture is needed Performed By: #### 3 0965 #### [facility] [address] [facility] [place] [address], [facility] Creatinine [Mass/Vol] 0.64 mg/dL Normal 0.60-1.20 [facility] Comment on above: Order Comment: No: D o not add to previous draw Criteria for reflexing a culture was not met. Please call the lab at [phone] within 24 hours of collection time if culture is needed Performed By: #### 3 0965 #### [facility] [address] [facility] [place] [address], [facility] GFR/1.73 sq M predicted among blacks MDRD (S/P/Bld) [Vol rate/Area] mL/min/{1.73_m2} Normal >60 [facility] Comment on above: Order Comment: No: D o not add to previous draw Criteria for reflexing a culture was not met. Please call the lab at [phone] within 24 hours of collection time if culture is needed Performed By: #### 3 0965 #### [facility] [address] [facility] [place] [address], [facility] GFR/1.73 sq M predicted among non-blacks MDRD (S/P/Bld) [Vol rate/Area] mL/min/{1.73_m2} Normal >60 [facility] Comment on above: Order Comment: No: D o not add to previous draw Criteria for reflexing a culture was not met. Please call the lab at [phone] within 24 hours of collection time if culture is needed Performed By: #### 3 0965 #### [facility] [address] [place] [address], [facility] Glucose [Mass/Vol] 129 mg/dL High 70-[address] [facility] Comment on above: Order Comment: No: D o not add to previous draw Criteria for reflexing a culture was not met. Please call the lab at [phone] within 24 hours of collection time if culture is needed Performed By: #### 3 0965 #### [facility] [address] [place] [address], [facility] Potassium [Moles/Vol] 3.6 mmol/L Normal 3.5-5.1 [facility] Comment on above: Order Comment: No: D o not add to previous draw Criteria for reflexing a culture was not met. Please call the lab at [phone] within 24 hours of collection time if culture is needed Performed By: #### 3 0965 #### [facility] [address] [facility] [place] [address], [facility] Sodium [Moles/Vol] 137 mmol/L Normal 136-145 [facility] Comment on above: Order Comment: No: D o not add to previous draw Criteria for reflexing a culture was not met. Please call the lab at [phone] within 24 hours of collection time if culture is needed Performed By: #### 3 0965 #### [facility] [address] [facility] [place] [address], [facility] Urea nitrogen [Mass/Vol] 11 mg/dL Normal 7-25 [facility] Comment on above: Order Comment: No: D o not add to previous draw Criteria for reflexing a culture was not met. Please call the lab at [phone] within 24 hours of collection time if culture is needed Performed By: #### 3 0965 #### [facility] [address] [facility] [place] [address], [facility] CBC W/DIFFon 11-14-2018 ABS BASOPHILS 0.0 10*3/uL Normal 0.0-0.2 [facility] Comment on above: Order Comment: No: D o not add to previous draw Criteria for reflexing a culture was not met. Please call the lab at [phone] within 24 hours of collection time if culture is needed Performed By: #### 3 0965 #### [facility] [address] ABS IMM GRANS 0.0 10*3/uL Normal 0.0-0.2 [facility] Comment on above: Order Comment: No: D o not add to previous draw Criteria for reflexing a culture was not met. Please call the lab at [phone] within 24 hours of collection time if culture is needed Performed By: #### 3 0965 #### [facility] [address] ABS NEUTROPHILS 5.0 10*3/uL Normal 1.6-7.6 [facility] Comment on above: Order Comment: No: D o not add to previous draw Criteria for reflexing a culture was not met. Please call the lab at [phone] within 24 hours of collection time if culture is needed Performed By: #### 3 0965 #### [facility] [address] Basophils/100 WBC (Bld) 0.1 % Normal 0.0-1.0 [facility] Comment on above: Order Comment: No: D o not add to previous draw Criteria for reflexing a culture was not met. Please call the lab at [phone] within 24 hours of collection time if culture is needed Performed By: #### 3 0965 #### [facility] [address] [place] [address], [facility] Eosinophils (Bld) [#/Vol] 0.2 10*3/uL Normal 0.0-0.5 [facility] Comment on above: Order Comment: No: D o not add to previous draw Criteria for reflexing a culture was not met. Please call the lab at [phone] within 24 hours of collection time if culture is needed Performed By: #### 3 0965 #### [facility] [address] [place] [address], [facility] Eosinophils/100 WBC (Bld) 1.8 % Normal 0.0-6.0 [facility] Comment on above: Order Comment: No: D o not add to previous draw Criteria for reflexing a culture was not met. Please call the lab at [phone] within 24 hours of collection time if culture is needed Performed By: #### 3 0965 #### [facility] [address] [facility] Erythrocyte distribution width (RBC) [Ratio] 15.9 % High 11.5-15.0 [facility] Comment on above: Order Comment: No: D o not add to previous draw Criteria for reflexing a culture was not met. Please call the lab at [phone] within 24 hours of collection time if culture is needed Performed By: #### 3 0965 #### [facility] [address] [facility] [address] Hematocrit (Bld) [Volume fraction] 36.8 % Normal 36.0-45.0 [facility] Comment on above: Order Comment: No: D o not add to previous draw Criteria for reflexing a culture was not met. Please call the lab at [phone] within 24 hours of collection time if culture is needed Performed By: #### 3 0965 #### [facility] [address] [facility]. [address] Hemoglobin (Bld) [Mass/Vol] 12.1 g/dL Normal 12.0-15.0 [facility] Comment on above: Order Comment: No: D o not add to previous draw Criteria for reflexing a culture was not met. Please call the lab at [phone] within 24 hours of collection time if culture is needed Performed By: #### 3 0965 #### [facility] [address] [place] [address], [facility] IMMATURE GRANS 0.4 % Normal 0.0-1.0 [facility] Comment on above: Order Comment: No: D o not add to previous draw Criteria for reflexing a culture was not met. Please call the lab at [phone] within 24 hours of collection time if culture is needed Performed By: #### 3 0965 #### [facility] [address] Lymphocytes (Bld) [#/Vol] 4.7 10*3/uL High 1.2-4.0 [facility] Comment on above: Order Comment: No: D o not add to previous draw Criteria for reflexing a culture was not met. Please call the lab at [phone] within 24 hours of collection time if culture is needed Performed By: #### 3 0965 #### [facility] [address] Lymphocytes/100 WBC (Bld) 45.2 % High 20.0-45.0 [facility] Comment on above: Order Comment: No: D o not add to previous draw Criteria for reflexing a culture was not met. Please call the lab at [phone] within 24 hours of collection time if culture is needed Performed By: #### 3 0965 #### [facility] [address] MCH (RBC) [Entitic mass] 28.7 pg Normal 27.0-33.0 [facility] Comment on above: Order Comment: No: D o not add to previous draw Criteria for reflexing a culture was not met. Please call the lab at [phone] within 24 hours of collection time if culture is needed Performed By: #### 3 0965 #### [facility] [address] MCHC (RBC) [Mass/Vol] 32.9 g/dL Normal 32.0-35.0 [facility] Comment on above: Order Comment: No: D o not add to previous draw Criteria for reflexing a culture was not met. Please call the lab at [phone] within 24 hours of collection time if culture is needed Performed By: #### 3 0965 #### [facility] [address] [place] [address], [facility] MCV (RBC) [Entitic vol] 87.2 fL Normal 82.0-98.0 [facility] Comment on above: Order Comment: No: D o not add to previous draw Criteria for reflexing a culture was not met. Please call the lab at [phone] within 24 hours of collection time if culture is needed Performed By: #### 3 0965 #### [facility] [address] [facility] [place] [address], [facility] Monocytes (Bld) [#/Vol] 0.5 10*3/uL Normal 0.1-1.0 [facility] Comment on above: Order Comment: No: D o not add to previous draw Criteria for reflexing a culture was not met. Please call the lab at [phone] within 24 hours of collection time if culture is needed Performed By: #### 3 0965 #### [facility] [address] MONOS 4.5 % Low 5.0-12.0 [facility] Comment on above: Order Comment: No: D o not add to previous draw Criteria for reflexing a culture was not met. Please call the lab at [phone] within 24 hours of collection time if culture is needed Performed By: #### 3 0965 #### [facility] [address] [facility] [place] [address], [facility] Neutrophils/100 WBC (Bld) 48.0 % Normal 40.0-72.0 [facility] Comment on above: Order Comment: No: D o not add to previous draw Criteria for reflexing a culture was not met. Please call the lab at [phone] within 24 hours of collection time if culture is needed Performed By: #### 3 0965 #### [facility] [address] [facility] [place] [address], [facility] Nucleated RBC/100 WBC (Bld) [Ratio] 0 % Normal 0-0 [facility] Comment on above: Order Comment: No: D o not add to previous draw Criteria for reflexing a culture was not met. Please call the lab at [phone] within 24 hours of collection time if culture is needed Performed By: #### 3 0965 #### [facility] [address] [place] [address], [facility] PLAT CNT 193 10*3/uL Normal 150-400 [facility] Comment on above: Order Comment: No: D o not add to previous draw Criteria for reflexing a culture was not met. Please call the lab at [phone] within 24 hours of collection time if culture is needed Performed By: #### 3 0965 #### [address] RBC (Bld) [#/Vol] 4.22 10*6/uL Normal 3.80-5.00 [facility] Comment on above: Order Comment: No: D o not add to previous draw Criteria for reflexing a culture was not met. Please call the lab at [phone] within 24 hours of collection time if culture is needed Performed By: #### 3 0965 #### [address] WBC (Bld) [#/Vol] 10.38 10*3/uL Normal 4.00-10.60 [facility] Comment on above: Order Comment: No: D o not add to previous draw Criteria for reflexing a culture was not met. Please call the lab at [phone] within 24 hours of collection time if culture is needed Performed By: #### 3 0965 #### [address] CHEST AND LATERALon 11-15-19 CHEST AND LATERAL [facility] Department of Radiology [address] [place] [id number] ======== Patient Name: EPI DAILEY : 1950 Sex: F Age: Race: White Pt. Location: [address] [place] [address] Patient Status: I Ordered Date: 11/14/2018 8:00:00 [...] findings. Electronically signed by:Jamey Hamilton. Transcribed by: [email or web address], User Resident: GAGAN GREENE Electronically Signed by: JAMEY HAMILTON @ 11/15/2018 09:14 AM I personally read this/these film(s) with this resident Normal [facility] Comment on above: Order Comment: No: D o not add to previous draw Criteria for reflexing a culture was not met. Please call the lab at [phone] within 24 hours of collection time if culture is needed LIPID PROFILEon 11-14-2018 Cholesterol [Mass/Vol] 113 mg/dL Low 120-200 [facility] Comment on above: Order Comment: [...] Risk Performed By: #### 3 0965 #### [facility] [address] [place] [address], [facility] Cholesterol in HDL [Mass/Vol] 29 mg/dL Normal 23-92 [facility] Comment on above: Order Comment: [...] Risk Performed By: #### 3 0965 #### [facility] [address] [facility] [place] [address], [facility] Cholesterol in LDL [Mass/Vol] 61 mg/dL Normal 0-130 [facility] Comment on above: Order Comment: No: D o not add to previous draw Criteria for reflexing a culture was not met. Please call the lab at [phone] within 24 hours of collection time if culture is needed Result Comment: LDL IS A CALCULATION LDL IS ONLY VALID IF THE TRIG IS LESS THAN 400. Performed By: #### 3 0965 #### [facility] [address] [facility] [place] [address], [facility] Cholesterol.total/Ch olesterol in HDL [Mass ratio] 3.9 {ratio} Normal 0.0-4.5 [facility] Comment on above: Order Comment: No: D o not add to previous draw Criteria for reflexing a culture was not met. Please call the lab at [phone] within 24 hours of collection time if culture is needed Performed By: #### 3 0965 #### [facility] [address] [place] [address], [place] NON-HDL CHOLESTEROL 84 mg/dL Normal [facility] Comment on above: Order Comment: No: D o not add to previous draw Criteria for reflexing a culture was not met. Please call the lab at [phone] within 24 hours of collection time if culture is needed Performed By: #### 3 0965 #### [facility] [address] [place], [place] [id number] [place] [address] Triglyceride [Mass/Vol] 113 mg/dL Normal 40-149 [facility] Comment on above: Order Comment: [...] RISK Performed By: #### 3 0965 #### [facility] [address] VLDL CHOL 23 mg/dL Normal 0-40 [facility] Comment on above: Order Comment: No: D o not add to previous draw Criteria for reflexing a culture was not met. Please call the lab at [phone] within 24 hours of collection time if culture is needed Performed By: #### 3 0965 #### [id number] [place] [address] MAGNESIUM BLOODon 11-14-2018 Magnesium [Mass/Vol] 2.0 mg/dL Normal 1.9-2.7 [facility] Comment on above: Order Comment: No: D o not add to previous draw Criteria for reflexing a culture was not met. Please call the lab at [phone] within 24 hours of collection time if culture is needed Performed By: #### 3 0965 #### [facility] [address] [place] [address], [facility] MRI LUMBAR SPINE W WO CONTRA STon 11-14-2018 MRI LUMBAR SPINE W WO CONTRAST [facility] Department of Radiology [address] [place] [address] ======== Patient Name: EPI DAILEY : 1950 Sex: F Age: Race: White Pt. Location: [id number] Patient Status: I Ordered Date: 11/13/2018 7:45:00 [...] spine. Electronically signed by:Kunal Bloom. Transcribed by: [id number], User Resident: Electronically Signed by: KUNAL BLOOM @ 11/15/2018 02:54 PM Normal [facility] Comment on above: Order Comment: No: D o not add to previous draw PROTHROMBIN TIMEon 9 INR Coag (PPP) [Relative time] 1.04 {INR} Normal 0.91-1.16 [facility] Comment on above: Order Comment: No: D o not add to previous draw Criteria for reflexing a culture was not met. Please call the lab at [phone] within 24 hours of collection time if culture is needed Result Comment: ACCC P RECOMMENDED INR FOR WARFARIN THERAPY ------- ------- CONDITION INR PROPHYLAXIS OF VENOUS THROMBOSIS 2-3 (HIGH-RISK SURGERY) TREATMENT OF VENOUS THROMBOSIS 2-3 TREATMENT OF PULMONARY EMBOLISM 2-3 PREVENTION OF SYSTEMIC EMBOLISM: 2-3 ACUTE MYOCARDIAL INFARCTION TISSUE HEART VALVES VALVULAR HEART DISEASE ATRIAL FIBRILLATION RECURRENT SYSTEMIC EMBOLISM MECHANICAL HEART VALVE 2.5-3.5 FROM: ORAL ANTICOAGULANTS. MECHANISM OF ACTION, CLINICAL EFFECTIVENESS, AND OPTIMAL THERAPEUTIC RANGE. CHEST 1995;108:231S-246S. Performed By: #### 3 0965 #### [facility] [address] [facility]. [address] PT Coag (PPP) [Time] 13.6 s Normal 12.3-14.8 [facility] Comment on above: Order Comment: [...] SAMPLING. Performed By: #### 3 0965 #### [facility] [address] [facility]. [address] TROPONIN-Ion 11-14-2018 Troponin I.cardiac [Mass/Vol] 1.03 ng/mL Critically high 0.00-0.04 [facility] Comment on above: Order Comment: No: D o not add to previous draw Result Comment: M-NC EVIOUS CRITICAL RESULT REFERENCE RANGES: 0.00 - 0.04 ng/ml NORMAL 0.05 - 0.50 ng/ml INDETERMINATE > 0.50 ng/ml CONSISTENT WITH AN M.I. Performed By: #### 3 5200 #### [facility] [address] UFH HEPARIN ASSAYon 11-15-19 19 UNFRACTIONATED HEPARIN 0.21 IU/mL Low 0.30-0.70 [facility] Comment on above: Result Comment: Guild roxaban and Apixaban will interfere with the anti Xa assay used to monitor UFH and LMWH. Performed By: #### 3 0965 #### [facility] [address] [facility]. [address] UNFRACTIONATED HEPARIN 0.26 IU/mL Low 0.30-0.70 [facility] Comment on above: Result Comment: Dora roxaban and Apixaban will interfere with the anti Xa assay used to monitor UFH and LMWH. Performed By: #### 3 0965 #### [facility] [address] [place] [address], [facility] UNFRACTIONATED HEPARIN 0.21 IU/mL Low 0.30-0.70 [facility] Comment on above: Result Comment: Dora roxaban and Apixaban will interfere with the anti Xa assay used to monitor UFH and LMWH. Performed By: #### 3 0965 #### [facility] [address] [place] [id number], [facility] UNFRACTIONATED HEPARIN <0.10 Critically low 0.30-0.70 [facility] Comment on above: Result Comment: Dora roxaban and Apixaban will interfere with the anti Xa assay used to monitor UFH and LMWH. RESULTS CHECKED AND CALLED. ACCURATELY READ BACK BY WILIAM DOMINGO RN @0058 Performed By: #### 3 0477 #### [facility] [address] [facility] [place] [address], [facility] BASIC METABOLIC PANELon 08-2 Calcium [Mass/Vol] 9.2 mg/dL Normal 8.6-10.[address] [facility] Comment on above: Order Comment: No: D o not add to previous draw Performed By: #### 0 0071, 30643, 64358 #### [facility] [address] [facility] [place] [address], [facility] Chloride [Moles/Vol] 103 mmol/L Normal 98-107 [facility] Comment on above: Order Comment: No: D o not add to previous draw Performed By: #### 0 0071, 25227, 98671 #### [facility] [address] [place] [address], [place] CO2 [Moles/Vol] 22 mmol/L Normal 21-31 [facility] Comment on above: Order Comment: No: D o not add to previous draw Performed By: #### 0 0071, 87949, 26653 #### [facility] [address] [place] [address], [place] Creatinine [Mass/Vol] 0.74 mg/dL Normal 0.60-1.20 [facility] Comment on above: Order Comment: No: D o not add to previous draw Performed By: #### 0 0071, 92355, 70322 #### [facility] [address] [place] [address], [place] GFR/1.73 sq M predicted among blacks MDRD (S/P/Bld) [Vol rate/Area] mL/min/{1.73_m2} Normal >60 [facility] Comment on above: Order Comment: No: D o not add to previous draw Performed By: #### 0 0071, 98996, 20445 #### [facility] [address] [place] [address], [place] GFR/1.73 sq M predicted among non-blacks MDRD (S/P/Bld) [Vol rate/Area] mL/min/{1.73_m2} Normal >60 [facility] Comment on above: Order Comment: No: D o not add to previous draw Performed By: #### 0 0071, 88602, 95974 #### [facility] [address] [place] [address], [place] Glucose [Mass/Vol] 116 mg/dL High 70-100 [facility] Comment on above: Order Comment: No: D o not add to previous draw Performed By: #### 0 0071, 63628, 08364 #### [facility] [address] [place] [address], [place] Potassium [Moles/Vol] 3.5 mmol/L Normal 3.5-5.1 [facility] Comment on above: Order Comment: No: D o not add to previous draw Performed By: #### 0 0071, 12585, 51938 #### [facility] [address] [place] [address], [place] Sodium [Moles/Vol] 137 mmol/L Normal 136-145 [facility]: Order Comment: No: D o not add to previous draw Performed By: #### 0 0071, 89511, 68803 #### [facility] [address] Urea nitrogen [Mass/Vol] 14 mg/dL Normal 7-25 [facility] Comment on above: Order Comment: No: D o not add to previous draw Performed By: #### 0 0071, 18693, 88018 #### [facility] [address] [facility]. [address] BNP (B-TYPE NATRIURETIC PEPT NICK)on 11-13-2018 Natriuretic peptide B (Bld) [Mass/Vol] 695 pg/mL High 0-100 [facility] Comment on above: Order Comment: Yes: Add to Previous draw if able Result Comment: Give n the appropriate clinical setting a BNP result of >100 pg/mL indicates congestive heart failure. Performed By: #### 8 5123, 66773 #### [facility] [address] [facility]. [address] CBC W/DIFFon 11-13-2018 ABS BASOPHILS 0.0 10*3/uL Normal 0.0-0.2 [facility] Comment on above: Performed By: #### 5 0103 #### [facility] [address] [facility]. [address] ABS IMM GRANS 0.1 10*3/uL Normal 0.0-0.2 [facility] Comment on above: Performed By: #### 5 0103 #### [facility] [address] ABS NEUTROPHILS 9.9 10*3/uL High 1.6-7.6 [facility] Comment on above: Performed By: #### 5 0103 #### [facility] [address] [place] [address], [facility] Basophils/100 WBC (Bld) 0.1 % Normal 0.0-1.0 [facility] Comment on above: Performed By: #### 5 0103 #### [facility] [address] [place] [address], [facility] Eosinophils (Bld) [#/Vol] 0.0 10*3/uL Normal 0.0-0.5 [facility] Comment on above: Performed By: #### 5 0103 #### [facility] [address] [facility] [place] [address], [facility] Eosinophils/100 WBC (Bld) 0.2 % Normal 0.0-6.0 [facility] Comment on above: Performed By: #### 5 0103 #### [facility] [address] [facility]. [address] Erythrocyte distribution width (RBC) [Ratio] 15.9 % High 11.5-15.0 [facility] Comment on above: Performed By: #### 5 0103 #### [facility] [address] [facility]. [address] Hematocrit (Bld) [Volume fraction] 36.8 % Normal 36.0-45.0 [facility] Comment on above: Performed By: #### 5 0103 #### [facility] [address] [facility] [place] [address], [facility] Hemoglobin (Bld) [Mass/Vol] 12.4 g/dL Normal 12.0-15.0 [facility] Comment on above: Performed By: #### 5 0103 #### [facility] [address] [facility] [place] [address], [facility] IMMATURE GRANS 0.6 % Normal 0.0-1.0 [facility] Comment on above: Performed By: #### 5 0103 #### [facility] [address] [place] [address], [facility] Lymphocytes (Bld) [#/Vol] 5.0 10*3/uL High 1.2-4.0 [facility] Comment on above: Performed By: #### 5 0103 #### [facility] [address] [place] [address], [facility] Lymphocytes/100 WBC (Bld) 32.2 % Normal 20.0-45.0 [facility] Comment on above: Performed By: #### 5 0103 #### [facility] [address] [place] [address], [facility] MCH (RBC) [Entitic mass] 28.8 pg Normal 27.0-33.0 [facility] Comment on above: Performed By: #### 5 0103 #### [facility] [address] [facility] [place] [address], [facility] MCHC (RBC) [Mass/Vol] 33.7 g/dL Normal 32.0-35.0 [facility] Comment on above: Performed By: #### 5 3 #### [facility] [address] [facility] [place] [address], [facility] MCV (RBC) [Entitic vol] 85.6 fL Normal 82.0-98.0 [facility] Comment on above: Performed By: #### 5 3 #### [facility] [address] [facility] [place] [address], [facility] Monocytes (Bld) [#/Vol] 0.5 10*3/uL Normal 0.1-1.0 [facility] Comment on above: Performed By: #### 5 3 #### [facility] [address] [facility] [place] [address], [facility] MONOS 3.3 % Low 5.0-12.0 [facility] Comment on above: Performed By: #### 5 3 #### [facility] [address] [place] [address], [facility] Neutrophils/100 WBC (Bld) 63.6 % Normal 40.0-72.0 [facility] Comment on above: Performed By: #### 5 3 #### [facility] [address] [place] [address], [facility] Nucleated RBC/100 WBC (Bld) [Ratio] 0 % Normal 0-0 [facility] Comment on above: Performed By: #### 5 3 #### [facility] [address] [place] [address], [place] PLAT CNT 213 10*3/uL Normal 150-400 [facility] Comment on above: Performed By: #### 5 0103 #### [facility] [address] [place] [address], [place] RBC (Bld) [#/Vol] 4.30 10*6/uL Normal 3.80-5.00 [facility] Comment on above: Performed By: #### 5 3 #### [facility] [address] [place] [address], [facility] WBC (Bld) [#/Vol] 15.51 10*3/uL High 4.00-10.60 [facility] Comment on above: Performed By: #### 5 0103 #### [facility] [address] [place] [address], [facility] HEMOGLOBIN A1Con 11-13-2018 HbA1c (Bld) [Mass fraction] 117 mg/dL Normal 70-126 [facility] Comment on above: Order Comment: Yes: Add to Previous draw if able Performed By: #### 8 3273, 61284 #### [facility] [address] [place] [address], [facility] HbA1c (Bld) [Mass fraction] 5.7 % Normal 4.0-6.0 [facility] Comment on above: Order Comment: Yes: Add to Previous draw if able Performed By: #### 8 0443, 14067 #### [facility] [address] [place] [address], [place] LIVER BATTERYon 11-13-2018 Albumin [Mass/Vol] 3.7 g/dL Normal 3.5-5.7 [facility] Comment on above: Order Comment: No: D o not add to previous draw Performed By: #### 0 0071, 25097, 67520 #### [facility] [address] [place] [address], [place] ALKALINE PHOSPH 61 IU/L Normal 34-104 [facility] Comment on above: Order Comment: No: D o not add to previous draw Performed By: #### 0 0071, 64983, 23084 #### [facility] [address] [place] [address], [place] ALT [Catalytic activity/Vol] 156 U/L High 7-52 [facility] Comment on above: Order Comment: No: D o not add to previous draw Performed By: #### 0 0071, 98583, 17330 #### [facility] [address] [place] [address], [place] AST [Catalytic activity/Vol] 62 U/L High 13-39 [facility] Comment on above: Order Comment: No: D o not add to previous draw Performed By: #### 0 0071, 74876, 33282 #### [facility] [address] [place] [address], [place] Bilirubin [Mass/Vol] 0.5 mg/dL Normal 0.3-1.0 [facility] Comment on above: Order Comment: No: D o not add to previous draw Performed By: #### 0 0071, 77235, 20179 #### [facility] [address] [place] [address], [place] Bilirubin.direct [Mass/Vol] 0.1 mg/dL Normal 0.0-0.2 [facility] Comment on above: Order Comment: No: D o not add to previous draw Performed By: #### 0 0071, 49083, 11233 #### [facility] [address] [place] [address], [place] Protein [Mass/Vol] 6.8 g/dL Normal 6.0-8.[address] [facility] Comment on above: Order Comment: No: D o not add to previous draw Performed By: #### 0 0071, 66851, 47351 #### [facility] [address] [place] [address], [facility] TROPONIN-Ion 11-13-2018 Troponin I.cardiac [Mass/Vol] 1.42 ng/mL Critically high 0.00-0.04 [facility] Comment on above: Order Comment: No: D o not add to previous draw Result Comment: M-NC EVIOUS CRITICAL RESULT REFERENCE RANGES: 0.00 - 0.04 ng/ml NORMAL 0.05 - 0.50 ng/ml INDETERMINATE > 0.50 ng/ml CONSISTENT WITH AN M.I. Performed By: #### 3 5200 #### [facility] [address] [facility]. [address] Troponin I.cardiac [Mass/Vol] 1.12 ng/mL Critically high 0.00-0.04 [facility] Comment on above: Order Comment: No: D o not add to previous draw Result Comment: M-CR ITICAL RESULT(S) REVIEWED, CALLED TO AND READ BACK BY MONICA HERNANDEZ RN @ 2000 ON 11-13-18 REFERENCE RANGES: 0.00 - 0.04 ng/ml NORMAL 0.05 - 0.50 ng/ml INDETERMINATE > 0.50 ng/ml CONSISTENT WITH AN M.I. Performed By: #### 0 0071, 93269, 78155 #### [facility] [address] [place] [address], [facility] URINALYSIS REFLEXon 11-14-19 19 Appearance (U) CLEAR Normal CLEAR [facility] Comment on above: Order Comment: No: D o not add to previous draw Criteria for reflexing a culture was not met. Please call the lab at [phone] within 24 hours of collection time if culture is needed Performed By: #### 3 7110 #### [facility] [address] [place] [address], [place] Bilirubin [Mass/Vol] Negative Normal NEGATIVE [facility] Comment on above: Order Comment: No: D o not add to previous draw Criteria for reflexing a culture was not met. Please call the lab at [phone] within 24 hours of collection time if culture is needed Performed By: #### 3 0965 #### [facility] [address] [place] [address], [place] BLOOD Negative Normal NEGATIVE [facility] Comment on above: Order Comment: No: D o not add to previous draw Criteria for reflexing a culture was not met. Please call the lab at [phone] within 24 hours of collection time if culture is needed Performed By: #### 3 0965 #### [facility] [address] [place] [address], [place] Color (U) YELLOW Abnormal YELLOW [facility] Comment on above: Order Comment: No: D o not add to previous draw Criteria for reflexing a culture was not met. Please call the lab at [phone] within 24 hours of collection time if culture is needed Performed By: #### 3 0965 #### [facility] [address] [place] [address], [place] Glucose [Mass/Vol] Negative Normal NEGATIVE [facility] Comment on above: Order Comment: No: D o not add to previous draw Criteria for reflexing a culture was not met. Please call the lab at [phone] within 24 hours of collection time if culture is needed Performed By: #### 3 0965 #### [facility] [address] [place] [address], [place] KETONE Negative Normal NEGATIVE [facility] Comment on above: Order Comment: No: D o not add to previous draw Criteria for reflexing a culture was not met. Please call the lab at [phone] within 24 hours of collection time if culture is needed Performed By: #### 3 0965 #### [facility] [address] [place] [address], [place] LEUK EMMANUELLE Negative Normal NEGATIVE [facility] Comment on above: Order Comment: No: D o not add to previous draw Criteria for reflexing a culture was not met. Please call the lab at [phone] within 24 hours of collection time if culture is needed Performed By: #### 3 0965 #### [facility] [address] [place] [address], [facility] MICRO NOT DONE negative chemical reactions unless requested in original order Normal [facility] Comment on above: Order Comment: No: D o not add to previous draw Criteria for reflexing a culture was not met. Please call the lab at [phone] within 24 hours of collection time if culture is needed Performed By: #### 3 0965 #### [facility] [address] [facility] [place] [address], [facility] Nitrite Ql (U) Negative Normal NEGATIVE [facility] Comment on above: Order Comment: No: D o not add to previous draw Criteria for reflexing a culture was not met. Please call the lab at [phone] within 24 hours of collection time if culture is needed Performed By: #### 3 0965 #### [facility] [address] [facility] [place] [place] [address], [facility] pH (Bld) 6.0 Normal 5.0-8.0 [facility] Comment on above: Order Comment: No: D o not add to previous draw Criteria for reflexing a culture was not met. Please call the lab at [phone] within 24 hours of collection time if culture is needed Performed By: #### 3 0965 #### [facility] [address] [facility] [place] [address], [facility] Protein (U) [Mass/Vol] Negative Normal NEGATIVE [facility] Comment on above: Order Comment: No: D o not add to previous draw Criteria for reflexing a culture was not met. Please call the lab at [phone] within 24 hours of collection time if culture is needed Performed By: #### 3 0965 #### [facility] [address] [place] [address], [facility] SPEC GRAV 1.009 Low 1.015-1.020 [facility] Comment on above: Order Comment: No: D o not add to previous draw Criteria for reflexing a culture was not met. Please call the lab at [phone] within 24 hours of collection time if culture is needed Performed By: #### 3 0965 #### [facility] [address] [place] [address], [facility] Vital Signs Date Time Vital Sign Value Performing Clinician Facility 09-20-2024 15:03-0400 Body height 162.56 cm Al Ball DO Work Phone: [facility] 09-20-2024 15:03-0400 Body mass index (BMI) [Ratio] 27.5 kg/m2 Al Ball DO Work Phone: [facility] 09-20-2024 15:03-0400 Body weight 72.68 kg Al Ball DO Work Phone: [facility] 09-20-2024 15:03-0400 Diastolic blood pressure 74 mm[Hg] Al Ball DO Work Phone: [facility] 09-20-2024 15:03-0400 Heart rate 76 /min Al Ball DO Work Phone: [facility] 09-20-2024 15:03-0400 Respiratory rate 12 /min Al Ball DO Work Phone: [facility] 09-20-2024 15:03-0400 Systolic blood pressure 192 mm[Hg] Al Ball DO Work Phone: [facility] 07-29-2024 09:43-0400 Body height 162.56 cm Al Ball DO Work Phone: [facility] 07-29-2024 09:43-0400 Body mass index (BMI) [Ratio] 27.4 kg/m2 Al Ball DO Work Phone: [facility] 07-29-2024 09:43-0400 Body weight 72.57 kg Al Ball DO Work Phone: [facility] 07-29-2024 09:43-0400 Diastolic blood pressure 92 mm[Hg] Al Ball DO Work Phone: [facility] 07-29-2024 09:43-0400 Heart rate 85 /min Al Ball DO Work Phone: [facility] 07-29-2024 09:43-0400 Respiratory rate 12 /min Al Ball DO Work Phone: [facility] 07-29-2024 09:43-0400 Systolic blood pressure 197 mm[Hg] Al Ball DO Work Phone: [facility] 04-29-2024 11:43-0500 Body height 162.56 cm [facility] 04-29-2024 11:43-0500 Body mass index (BMI) [Ratio] 27.3 kg/m2 [facility] 04-29-2024 11:43-0500 Body weight 72.29 kg [facility] 04-29-2024 11:43-0500 Diastolic blood pressure 81 mm[Hg] [facility] 04-29-2024 11:43-0500 Heart rate 92 /min [facility] 04-29-2024 11:43-0500 Respiratory rate 12 /min [facility] 04-29-2024 11:43-0500 Systolic blood pressure 180 mm[Hg] [facility] 03-14-2024 11:34-0500 Body height 162.56 cm [facility] 03-14-2024 11:34-0500 Body mass index (BMI) [Ratio] 27.6 kg/m2 [facility] 03-14-2024 11:34-0500 Body weight 73.02 kg [facility] 03-14-2024 11:34-0500 Diastolic blood pressure 75 mm[Hg] [facility] 03-14-2024 11:34-0500 Heart rate 83 /min [facility] 03-14-2024 11:34-0500 Respiratory rate 12 /min [facility] 03-14-2024 11:34-0500 Systolic blood pressure 150 mm[Hg] [facility] 05-11-2023 13:30-0500 Body height 162.56 cm [facility] 05-11-2023 13:30-0500 Body mass index (BMI) [Ratio] 27.6 kg/m2 [facility] 05-11-2023 13:30-0500 Body weight 73.02 kg [facility] 05-11-2023 13:30-0500 Diastolic blood pressure 72 mm[Hg] [facility] 05-11-2023 13:30-0500 Heart rate 84 /min [facility] 05-11-2023 13:30-0500 SaO2% (BldA) [Mass fraction] 97 % [facility] 05-11-2023 13:30-0500 Systolic blood pressure 168 mm[Hg] [facility] 02-27-2023 11:00-0500 Body height 162.56 cm Al Soto Other [facility] 02-27-2023 11:00-0500 Body mass index (BMI) [Ratio] 26.43 kg/m2 Al Soto Other [employer] Other 02-27-2023 11:00-0500 Body weight 69.85 kg Al Soto Other [facility] 02-27-2023 11:00-0500 Diastolic blood pressure 72 mm[Hg] Al Soto Other [facility] 02-27-2023 11:00-0500 Respiratory rate 18 /min Al Soto Other [facility] [employer] Other 02-27-2023 11:00-0500 Systolic blood pressure 190 mm[Hg] Al Soto Other [facility] Encounters Encounter Date Encounter Type Care Provider Facility Start: 09-22-2024 End: 09-22-2024 [facility] Start: 09-22-2024 End: 09-22-2024 Subsequent hospital visit by physician Al Soto DO Work Phone: [facility] Comment on above: Vaginal itching Start: 09-20-2024 End: 09-20-2024 ambulatory Al Soto DO Work Phone: [facility] Work Phone: Start: 09-20-2024 End: 09-20-2024 Patient encounter procedure Al Soto DO [facility] Work Phone: Start: 07-29-2024 End: 07-29-2024 Patient encounter procedure Al Soto DO -[facility] Work Phone: Start: 04-29-2024 End: 04-29-2024 ambulatory [facility] Work Phone: Start: 04-29-2024 End: 04-29-2024 Patient encounter procedure [facility] Work Phone: Start: 04-19-2024 Non-patient / Non-visit [facility] Work Phone: Start: 04-18-2024 Non-patient / Non-visit [facility] Work Phone: Start: 03-14-2024 End: 03-14-2024 Patient encounter procedure [facility] [facility] Work Phone: Start: 03-12-2024 Patient encounter procedure [facility] Start: 03-11-2024 Non-patient / Non-visit [facility] Work Phone: Start: 03-08-2024 Non-patient / Non-visit [facility] Work Phone: Start: 05-11-2023 End: 05-11-2023 ambulatory [facility] Work Phone: Start: 05-11-2023 End: 05-11-2023 Patient encounter procedure [facility] Work Phone: Start: 02-27-2023 End: 02-27-2023 ambulatory Al Soto Other [employer] Other Start: 02-27-2023 Patient encounter procedure Al Soto [facility] Start: 02-27-2023 End: 02-27-2023 Patient encounter procedure [facility] Work Phone: Start: 02-19-2023 End: 02-19-2023 ambulatory Al Soto Other [employer] Other Start: 02-19-2023 Telephone encounter Al Soto FP [facility] Start: 12-29-2022 End: 12-29-2022 ambulatory Al Soto Other [employer] Other Start: 12-29-2022 Nursing evaluation o f patient and report Al Soto [facility] Start: 06-05-2022 End: 06-06-[address] GONSALVES LISTED REQUEST Facility:H1 Start: 05-16-2022 End: 05-17-[address] AL SOTO Facility:H1 Start: 02-26-2022 Adult health examination Al Soto Other [employer] Other Start: 02-24-2022 End: 02-25-[address] AL SOTO Facility:[facility]1 Start: 08-21-2021 End: 08-22-[address] AL SOTO Facility:[facility]1 Procedures Date Procedure Procedure Detail Performing Clinician Start: 10-11-2020 H/O: hysterectomy RALH, BSO, A /P repair, Lynx sling, Cysto 10/11/20 Al Charles DO Work Phone: Start: 06-29-2017 Screening mammography B enjastefan Soto Other Start: 04-29-2016 General examination of patient Al Soto Other Start: 04-29-2016 Screening for malign ant neoplasm of colon Al Soto Other Start: 04-29-2016 Screening for osteoporosis Al Soto Other Depression screening Geovany Soto Other Screening for malign ant neoplasm of breast Al Soto Other Plan of Treatment Date Care Activity Detail Author Start: 06-30-2027 DTaP/Tdap/Td vaccine (2 - Tdap) DTaP/Tdap/Td vaccine (2 - Tdap) [facility] [employer] Start: 2026 Respiratory Syncytia l Virus (RSV) or age 60 yrs+ (1 - 1-dose 75+ series) Respiratory Syncytial Virus (RSV) or age 60 yrs+ (1 - 1-dose 75+ series) [employer] [employer] Start: 10-21-2024 Influenza vaccination Flu vaccine (# 1) [facility] Start: 12-28-2023 Annual Wellness Visi t (Medicare) Annual Wellness Visit (Medicare) [facility] Start: 11-22-2023 COVID-19 Vaccine ( season) COVID-19 Vaccine ( season) [facility] Start: 2006 Screening for osteoporosis DEXA (modify frequency per FRAX score) [facility] Start: 01-11-1996 Screening for malign ant neoplasm of colon [facility] [employer] Start: 1991 Screening for malign ant neoplasm of breast Breast cancer screen [facility] Start: 1969 Hepatitis C screening Hepatitis C sc reen [facility] Start: 1963 Depression Screen Depression Screen [facility] Start: 1961 Lipid panel Lipids [place] Leftronic MG Breast - bilatera l Screening [facility] End: 09-22-2024 Vaginitis DNA Probe [facility] Comment on above: 1 Occurrences starti ng 09/22/2024 until 09/22/2024 Immunizations Immunization Date Immunization Notes Care Provider Fa mandi 12-29-2022 influenza virus vaccine, unspecified formulation [facility] 12-29-2022 influenza, high dose seasonal, preservative-free Al Soto Other [employer] Other 12-26-2021 influenza virus vaccine, split virus (incl. purified surface antigen) Al Soto Other [employer] Other 12-26-2021 influenza virus vaccine, unspecified formulation [facility] 05-28-2020 COVID-19, MODERNA BL UE border, Primary or Immunocompromised, (age 12y+), IM, 100 mcg/0.5mL Al Ball DO Work Phone: [facility] 05-01-2020 COVID-19, MODERNA BL UE border, Primary or Immunocompromised, (age 12y+), IM, 100 mcg/0.5mL Al Ball DO Work Phone: [facility] 07-07-2018 pneumococcal polysaccharide vaccine, 23 valent Al Soto Other [facility] 01-06-2018 influenza virus vaccine, split virus (incl. purified surface antigen) Al Soto Other [employer] Other 01-06-2018 influenza virus vaccine, unspecified formulation [facility] 06-29-2017 diphtheria, tetanus toxoids and acellular pertussis vaccine, unspecified formulation Al Soto Other [facility] 06-29-2017 pneumococcal conjuga te vaccine, 13 valent Al Soto Other [facility] Payers Date Payer Category Payer Unknown [id number] 1959 Self-pay [id number] 1959 Unknown [id number] 1950 Unknown [id number] 1950 Unknown [id number] [id number] 1950 Unknown [id number] [id number] [id number] 1950 Unknown [id number] Self-pay Self Pay [id number] Unknown [id number] [id number] [id number] Social History Date Type Detail Facility Unknown if ever smoked [facility] [employer] Other Start: 09-22-2024 Sex Assigned At N [facility] [employer] Other Start: 05-11-2023 End: 01-25-2024 Tobacco smoking status NHIS Never smoked tobacco (finding) [facility] Start: 1950 Sex Assigned At Female F [facility] Start: 05-04-2012 End: 04-29-2024 Sex Female (finding) [facility] Start: 01-25-2024 Tobacco use and exposure Smokeless tobacco non-user [facility] [employer] Start: 09-22-2024 Alcoholic beverage intake Current drinker of alcohol (finding) [facility] [employer] [facility] [employer] Start: 09-22-2024 History of Social function [facility] [employer] Start: 10-01-2020 Alcohol Comment social [facility] [employer] Start: 1950 Sex assigned at Not on file B on [employer] Medical Equipment Procedure Code Equipment Code Equipment Origin al Text Equipment Identifier Dates Sling Corn Cooker Polypr Suprpub Midurethral Halo Ndl Guid Tb Hndl [id number] Start: 10-11-2020 Comment on above: Description: [id number] Evaluation note 07-29-2024 Note Date & Type Note Facility 07-29-2024 Evaluation note Diagnosis Onset Date Resolution Cervical spondylosis acute July 29, 2024 9:32am Radicular pain in right arm acute July 29, 2024 9: 32am Neck pain noneactive July 29, 2024 9:32am [facility] Work Phone: Evaluation note 03-14-2024 Note Date & Type Note Facility 03-14-2024 Evaluation note Diagnosis Onset Date Resolution Essential (primary) hypertension acute March 14, 2024 11:25am Hypercholesterolemia acute Dece [id number] 11:25am Hypothyroid acute February 11:25am Medicare annual wellness visit, subsequent acute March 14, 2024 11:25am Overweight acute March 14, 2024 11:25am Screening mammogram for breast cancer acute March 14, 2024 11:25am Colitis acute April 29, 2024 11:25am Hematochezia acute April 11:25am [facility] Work Phone: Evaluation note 02-27-2023 Note Date & Type [...] Continue estrogen crm. Healthy diet and exercise. [employer] Other Evaluation note 02-19-2023 Note Date & Type Note Facility 02-19-2023 Evaluation note Encounter Date Diagnosis Assessment Notes Jan, Primary hypertension (ICD-10 - I10) Jan, Hypercholesteremia (ICD-10 - E78.00) Jan, Other specified hypothyroidism (ICD-10 - E03.8) Jan, Autoimmune thyroiditis (ICD-10 - E06.3) Jan, Vitamin D deficiency (ICD-10 - E55.9) Jan, High risk medication use (ICD-10 - Z79.899) [employer] Other Evaluation note Note Date & Type Note Facility Evaluation note No Information [facility] [employer] Other Evaluation note Note Date & Type Note Facility Evaluation note Diagnosis Onset Date Bacterial conjunctivitis of right eye acute [facility] Work Phone: Evaluation note Note Date & Type Note Facility Evaluation note Diagnosis Vaginal itching Pruritus of genital organs documented in this encounter [facility] History general Narrative - Reported Note Date & Type Note Facility History general Narrative - Reported Type Medical History hypertension Medical History hypercholesterolemia Surgical History Problem Title : ANTE RIOR CERVICAL DISCECTOMY AND FUSION (ACDF) (35827), Problem Status : Active, Surgical History Problem Title : past surgical history reviewed, Problem Description : past surgical history reviewed, Problem Comment : reviewed - no changes required, Problem Status : Inactive, Surgical History Problem Title : Spin al Fusion - Neck, Problem Status : Active, [employer] Other History general Narrative - Reported Note Date & Type Note Facility History general Narrative - Reported Type Medical History hypertension Medical History hypercholesterolemia Surgical History neck surgery Hospitalization History see surgical history [employer] Other Reason for referral (narrative) Note Date & Type Note Facility Reason for referral (narrative) No reason for referral information available [facility] Work Phone: Summary Purpose Family History No Family History Records Found Relationship Condition Age at Onset Recorded Date/T addy father Unknown Not Specified Unknown Hypertension Unknown Relationship Condition Age at Onset Recorded Date/T addy father Unknown mother Unknown Hypertension Unknown Advance Directives No Advanced Directives Records Found Advance Directive Response Recorded Date/ Time Advance Directives No September 27 10:11am Advance Directive Response Recorded Date/ Time Advance Directives No September 27 11:11am Date Activated Date Inactivated Comments 10/11/2020 12:36 PM 10/12/2020 3:44 PM Hospital Course Note MR#: [id number] [facility] Pt. Name: Epi Dailey Admitted: 11/13/2018 Discharged: 11/16/2018 Date of : 1950 Physician: Ryan Rehman MD DISCHARGE SUMMARY DIAGNOSES AT ADMISSION: 1. Ulu-XV-uavpareth myocardial infarction. 2. Acute congestive heart failure exacerbation. 3. Oropharyngeal candidiasis. DIAGNOSES AT DISCHARGE: 1. Hca-RK-pjkgovzti myocardial infarction. 2. Acute diastolic congestive heart failure exacerbation, resolved. 3. Oropharyngeal candidiasis, resolved. 4. Questionable pneumonia treated. 5. Hypertension controlled. 6. Hyperlipidemia. 7. Abnormal LFTs, resolved. HOSPITAL COURSE: This is a 68-year-old female, who was recently treated with Bactrim for her urinary tract infection and was also started on antibiotics and steroids for possible pneumonia, was transferred from the [facility] for worsening shortness of breath along with left lower extremity weakness. The patient was started on Zosyn and ciprofloxacin for the last so (more content not included)... Chief Complaint and Reason for Visit Chief Complaint Wellness Rash Reason for Visit Bacterial conjunctiv itis of right eye Chief Complaint Admit Date CC Adult Risk Stratification March 112023 1:53pm Wellness March 14, 2024 11:25am Amb Documentation April 19, 2024 1 1:00am Follow up, colitis April 29, 2024 1 1:25am Reason for Visit Admit Date Essential (primary) hypertension Decembe r 2023 11:25am Hypercholesterolemia March 14, 2024 11:25am Hypothyroid March 14, 2024 11:25am Medicare annual wellness visit, subseque nt March 14, 2024 11:25am Overweight March 14, 2024 11:25am Screening mammogram for breast cancer [facility] 11:25am Colitis April 29, 2024 1 1:25am Hematochezia April 29, 2024 1 1:25am Chief Complaint Admit Date right shoulder pain July 29, 2024 9:32am discuss MRI September 20, 2024 2:52p m Reason for Visit Admit Date Cervical spondylosis July 29, 2024 9:32a m Radicular pain in right arm July 29 9:32am Neck pain July 29, 2024 9:32am Additional Source Comments INFORMATION SOURCE (unrecogn ized section and content) DATE CREATED AUTHOR 12/31/2018 [facility] DATE CREATED AUTHOR AUTHOR'S ORGANIZ ATION 03/30/2020 [facility] DATE CREATED AUTHOR AUTHOR'S ORGANIZ ATION 06/06/2022 [facility] DATE CREATED AUTHOR AUTHOR'S ORGANIZ ATION 09/25/2024 [facility] REASON FOR VISIT (unrecogniz ed section and content) [facility] Care Teams (unrecognized sec tion and content) Team Status: Active Member Role Status Dates Al Soto DO Primary Care Provider Active Team Status: Inactive Member Role Status Dates Al Soto DO Primary Care Provider Active Start: July 29, 2024 End: July 29, 2024 Al Soto DO Attending Provider Active Sta rt: July 29, 2024 End: July 29, 2024 Team Status: Inactive Member Role Status Dates Al Soto DO Primary Care Provider Active Start: September 20, 2024 End: September 20, 2024 Al Soto DO Attending Provider Active Sta rt: September 20, 2024 End: September 20, 2024 Team Status: Active Member Role Status Dates Al Soto DO Primary Care Provide r, Attending Provider Active Start: March 08, 2024 Team Status: Active Member Role Status Dates Al Soto DO Primary Care Provide r, Attending Provider Active Start: March 11, 2024 Team Status: Inactive Member Role Status Dates Al Soto DO Primary Care Provide r, Attending Provider Active Start: March 14, 2024 End: March 14, 2024 Team Status: Active Member Role Status Dates Al Soto DO Primary Care Provider Active Start: April 18, 2024 Fernie Chaidez DO Attending Provider Active S tart: April 18, 2024 Team Status: Active Member Role Status Dates Al Soto DO Primary Care Provider Active Start: April 19, 2024 Epi Hamilton CMA Attending Provider Active Start: April 19, 2024 Team Status: Inactive Member Role Status Dates Al Soto DO Primary Care Provide r, Attending Provider Active Start: April 29, 2024 End: April 29, 2024 Team Status: Inactive Member Role Status Dates Al Soto DO Attending Provider Active Sta rt: February 27, 2023 End: February 27, 2023 Team Status: Inactive Member Role Status Dates Al Soto DO Primary Care Provider Active Start: May 11, 2023 End: May 11, 2023 Maria Guadalupe Youssef APRN BUSINESS INTELLIGENCE CONSULTANT-C Attending Provider Active Start: April End: May 11, 2023 Short Haul Driver Relationship Specialty Start Date End Date Al Soto DO [address] [place] [address] PCP - General Internal Medicine 01/25/24 Goals (unrecognized section and content) Goals may [...] BE BASED ON THE PRIMARY CLINICAL RECORDS. [facility]. provides no warranty or guarantee of the accuracy or completeness of information in this document.
[2024-10-28 12:44] LABS: Estimated GFR (African America >60 (>=60 mL/min/1.73m^2); Estimated GFR (Non-African Ame >60 (>=60 mL/min/1.73m^2)
== END 2024-10-28 12:29 | disposition home or self-care (01) ==
LOC: LAB 12:28
PROVIDERS: Pathology Anatomic Pathology & Clinical Pathology; PCP Internal Medicine; Visit Provider Internal Medicine
DX: M47.22 Other spondylosis with radiculopathy, cervical region (principal); Z98.1 Arthrodesis status; M79.2 Neuralgia and neuritis, unspecified; M50.30 Other cervical disc degeneration, unspecified cervical region
CPT/HCPCS: 36415; 72156; 82565; A9575

== ENCOUNTER 2024-10-31 15:12 | Outpatient (OUT) | payer MEDICARE, SELFPAY ==
--- NOTE | 2024-10-31 15:36 | XR_ITS ---
[address] [address] Patient Name: EPI GEORGE MRN: [id number] date: 1950 Sex: F Assigned Patient Location: LAB Current Patient Location: LAB Accession/Order Number: [id number] Exam Date: 10/31/2024 16:03 Report Date: 10/31/2024 16:04 At the request of: EDGAR LEVINE DO Procedure: XR shoulder RT min 2V RIGHT SHOULDER - - 3 views CLINICAL HISTORY: Shoulder Pain COMPARISON: None FINDINGS: Mild degenerative changes of the AC and glenohumeral joints without acute bony process. XR/XR shoulder RT min 2V IMPRESSION: MILD DEGENERATIVE CHANGES INVOLVING THE RIGHT SHOULDER WITHOUT ACUTE BONY PROCESS. Impression dictated by: Jose Hampton Jr., D.O. 10/31/2024 4:04 PM Dictation Location: [place] [address] Electronically authenticated by: [id number] Y Date: 10/31/2024 16:04
--- NOTE | 2024-10-31 15:36 | XR_ITS ---
[address] [address] Patient Name: EPI GEORGE MRN: [id number] date: 1950 Sex: F Assigned Patient Location: LAB Current Patient Location: LAB Accession/Order Number: [id number] Exam Date: 10/31/2024 16:04 Report Date: 10/31/2024 16:05 At the request of: EDGAR LEVINE DO Procedure: XR scapula RT RIGHT SCAPULA - 2 views CLINICAL HISTORY: Shoulder Pain COMPARISON: None FINDINGS: No acute bony process. XR/XR scapula RT IMPRESSION: NO ACUTE BONY PROCESS. Impression dictated by: Jose Hampton Jr., D.O. 10/31/2024 4:05 PM Dictation Location: [place] [address] Electronically authenticated by: [id number] Y Date: 10/31/2024 16:05
[2024-10-31 15:51] LABS: Hematocrit 44.1 % (36.0-48.0); Hemoglobin 15.0 g/dL (12.0-16.0); Immature Granulocytes Abs Auto 0.00 10^3/uL (0.00-0.03); Immature Granulocytes Pct Auto 0.0 % (0.0-0.5); Lymphocytes Absolute Auto 3.1 10^3/uL (1.2-3.8); Mean Corpuscular HGB Conc 34.0 g/dL (29.9-35.2); Mean Corpuscular Hemoglobin 29.7 pg (26.7-34.0); Mean Corpuscular Volume 87.3 fL (81.0-99.0); Platelet Count 232 10^3/uL (150-450); Red Blood Count 5.05 10^6/uL (4.20-5.40); White Blood Count 6.6 10^3/uL (4.0-11.0)
[2024-10-31 15:55] LABS: Anion Gap 15.1; Blood Urea Nitrogen 12.0 mg/dL (7.0-18.0); Calcium 10.3 mg/dL (8.5-10.1); Carbon Dioxide 24.8 mmol/L (21.0-32.0); Chloride 104 mmol/L (98-107); Estimated GFR (African America >60 (>=60 mL/min/1.73m^2); Estimated GFR (Non-African Ame >60 (>=60 mL/min/1.73m^2); Glucose 110 mg/dL (74-106); Potassium 3.9 mmol/L (3.5-5.1); Sodium 140 mmol/L (136-145)
[2024-11-02 16:09] LABS: Albumin 4.2 g/dL (2.9-4.4); Alpha-1-Globulin 0.3 g/dL (0.0-0.4); Alpha-2-Globulin 1.1 g/dL (0.4-1.0); Free Kappa Lt Chains,S 24.8 mg/L (3.3-19.4); Free Lambda Lt Chains,S 17.2 mg/L (5.7-26.3); Gamma Globulin 1.5 g/dL (0.4-1.8); Immunoglobulin A, Qn, Serum 247 mg/dL (64-422); Kappa/Lambda Ratio,S 1.44 (0.26-1.65)
== END 2024-10-31 15:13 | disposition home or self-care (01) ==
LOC: LAB 15:14
PROVIDERS: PCP Internal Medicine; Visit Provider Internal Medicine
DX: M25.511 Pain in right shoulder (principal); R93.7 Abnormal findings on diagnostic imaging of other parts of musculoskeletal system; R53.83 Other fatigue
CPT/HCPCS: 36415; 73010; 73030; 80048; 82784; 83521; 84155; 84165; 85025; 86334

== ENCOUNTER 2024-12-08 10:07 | Outpatient (OUT) | payer MEDICARE, SELFPAY ==
--- OUTSIDE RECORDS SUMMARY | 2024-12-08 10:10 | XMS_ITS | Clinical Summary ---
Author Organization [facility] Address [address] [place] [address] Phone Care Team Providers Care Imaging Analyst Name Role Phone Unavailable Primary Care Provider Unavailabl e Encounters Date Type Department Care Team Description 11/09/2024 Transcribe Orders [facility] [address] [place] [address] Nely Whittington MA 11/09/2024 Transcribe Orders [facility] [address] [place] [address] Al Soto, Other spondylosis with radiculopathy, cervical region (Primary Dx); Arthrodesis status 09/21/2024 Telephone [facility] [address] [place] [address] Bonifacio Melton MD from Last 3 [...]
--- OUTSIDE RECORDS SUMMARY | 2024-12-08 10:10 | XMS_ITS | Encounter Summary ---
Author Organization [facility] Address [address] [place] [address] Phone Care Team Providers Care Anesthesiology Physician Name Role Phone Unavailable Primary Care Provider Unavailabl e Reason for Referral * Consultation (Routine) - Authorized Specialty Diagnoses / Procedures Referred By Brandi yost Referred To Contact Orthopaedic Surgery / Orthopedic Surgery Diagnoses Other spondylosis with radiculopathy, cervical region Arthrodesis status Al Soto DO [address] [place] [address] Phone: tel: fax: Referral ID Status Reason Start Date Expiration Date Visits Requested Visits Authorized [id number] Authorized Specialty Services Required 11/09/2024 11/09/2025 1 1 Encounter Details Date Type Department Care Team (Late st Contact Info) Description 11/09/2024 Transcribe Orders [facility] [address] [place] [address] Al Soto DO [address] [place], [place] [id number] Other spondylosis with radiculopathy, cervical region (Primary Dx); Arthrodesis status Social History Tobacco Use Types Packs/Day Years Used Date Smoking Tobacco: Never Assessed Comments Unknown Sex and Gender Information Value Date Recorded Sex Assigned at Not on file Legal Sex Female 7:42 PM EST Gender Identity Not on file Sexual Orientation Not on file documented as of this encounter Plan of Treatment Scheduled Referrals Name Type Priority Associated Diagnoses Order Schedule Referral to Adult Orthopedics and Sports Medicine Outpatient Referral Non-Urgent Other spondylosis with radiculopathy, cervical region Arthrodesis status Expected: 11/09/2024 (Approximate), Expires: 11/09/2025 documented as of this encounter Visit Diagnoses Diagnosis Other spondylosis with radiculopathy, cervical region- Primary Arthrodesis status documented in this encounter
--- OUTSIDE RECORDS SUMMARY | 2024-12-08 10:10 | XMS_ITS | Encounter Summary ---
Author Organization [employer] s [employer] Address [id number] [address] [place] [address] Care Team Providers Care Building Certifier Name Role Phone Unavailable Primary Care Provider Unavailabl e Encounter Details Date Type Department Care Team (Late st Contact Info) Description 11/03/2022 [facility]phone [facility] [address] [place] [address] Keri Wilkerson Social History Tobacco [...] her she would like it sent to [email or web address] in [place]. Please advise. Thank you. * Telephone Encounter [...]
--- OUTSIDE RECORDS SUMMARY | 2024-12-08 10:10 | XMS_ITS | Clinical Summary ---
Author Organization [employer] Address [id number] [address] [place] [address] Care Team Providers Care Product/Industry Consultant Name Role Phone Unavailable Primary Care Provider Unavailabl e Allergies Active Allergy Reactions Criticality Noted Date Comments Sulfa (Sulfonamide Antibiotics) Hives 09/20 Sulfamethoxazole-Trimethoprim Vomiting 2022 Medications levothyroxine (SYNTHROID, LEVOTHROID) 50 MCG tablet Take 1 tablet (50 mcg total) by mouth in the morning. Active losartan (COZAAR) 50 mg tablet Take 2 tablets (100 mg total) by mouth in the morning. Active amLODIPine (NORVASC) 2.5 mg tablet Take 1 tablet (2.5 mg total) by mouth in the morning. Active Active Problems No known active problems Social History Tobacco Use Types Packs/Day Years [...] Sign Reading Time Taken Comments Blood Pressure 174/98 10/07/2022 1:44 PM EDT Pulse - - Temperature - - Respiratory Rate - - Oxygen Saturation - - Inhaled Oxygen Concentration - - Weight 66.1 kg (145 lb 12.8 oz) 10/07/2022 1:44 PM EDT Height 160 cm (5' 3 ) 10/07/2022 1:44 PM EDT Body Mass Index 25.83 10/07/2022 1:44 PM EDT Plan of Treatment Health Maintenance Due Date Last Done Comments Depression Screening 1962 Tobacco Screening 1962 DTaP,Tdap and Td Vaccines (1 - Tdap) 1970 Fall Risk Screening 01/11/2016 Zoster (Shingles) Vaccine (2 of 2) 05/30/2022 04/04/2022 Adult BMI Screening 10/08/2023 10/07/2022 COVID-19 Vaccine ( - 2024-2 6 season) 2024 10/08/2021, 01/21/2021, 05/28/2020, Additional history exists Influenza Vaccine 11/21/2024 12/26/2021, , 12/29/2019, Additional history exists Medical Devices Not on file Insurance [employer]ICARE
--- OUTSIDE RECORDS SUMMARY | 2024-12-08 10:10 | XMS_ITS | Clinical Summary ---
Author Organization [facility] Address [address], [address] [place] [address] Care Team Providers Care Mash Filter Press Operator Name Role Phone Al Soto DO Primary Care Provider [phone] Allergies Active Allergy Reactions Criticality Noted Date [...] Active estradiol (ESTRACE VAGINAL) 0.1 MG/GM vaginal creamIndication s:Postmenopausa l atrophic vaginitis Place 1 g vaginally Twice a Week 42.5 g 3 4 Active nystatin-triamc inolone (MYCOLOG II) 966545-2.1 UNIT/GM-% cream Apply topically 2 times daily. 1 each 5 Active Active Problems Problem Noted Date Diagnosed Date RALH, BSO, A/P repair, Lynx sling, Cysto 10/11/20 10/11/2020 Overview (10/12/2020): Robotic-assisted laparoscopic hysterectomy with bilateral salpingo-oophorectomy, internal Wittmann-Montelongo culdoplasty with uterosacral suspension and enterocele repair, anterior colporrhaphy, cystourethroscopy, filling cystometrogram, Lynx retropubic sling placement, posterior colporrhaphy, fulguration of endometriosis Cystocele with rectocele 10/09/2020 Uterine prolapse 10/09/2020 Hypertension Thyroid disease Hyperlipidemia Encounters Date Type Department Care Team Description 09/22/2024 9:13 PM EDT - 09/22/2024 11:59 PM EDT Hospital Encounter [facility] [address] [place] [address] Vaginal itching Discharge Disposition: Home or Self Care 09/22/2024 2:15 PM EDT Office Visit [facility] [address] [place] [id number] Poli Hopper DO Vaginal itching (Primary Dx); Pelvic pressure in female; Vaginal atrophy; Urethrocele 09/22/2024 Results Follow-Up [facility] [address] [place] [address] [place] [id number] Poli Hopper DO from Last 3 Months Immunizations Immunization Administration Dates Next Due COVID-19, Inactive, MODERNA BLUE border, Primary or Immunocompromised, (age 12y+) 05/28/2020,05/01/2020 Social History Tobacco Use Types Packs/Day [...] DEXA (modify frequency per FRAX score) 2006 Annual Wellness Visit (Medicare) 12/28/2023 Flu vaccine (#1) 10/21/2024 12/21/2023, 11/2022, 12/26/2021, Additional history exists COVID-19 Vaccine ( season) 2024 05/28/2020, 05/01/2020 Respiratory Syncytial Virus (RSV) or age 60 [...] this topic Medical Devices Implanted Type Area Cnc Maintenance Mechanic Device Identifier Shelf Expiration Date Model / Serial / Lot Sling Tow Bar Driver Polypr Suprpub Midurethral Halo Ndl Guid Tb Hndl Implanted:Qty: 1 on 10/11/2020 by Poli Hopper DO at [facility]/Tow Bar Driver Urinary Bladder [employer] [facility]- 07/23/2023 [id number] / / [id number] Description:[id number] Procedures Procedure Name Priority Date/Time Associated Diagnosis Comments VAGINITIS DNA PROBE Routine 09/22/2024 9 :14 PM EDT Vaginal itching POCT URINALYSIS DIPSTICK W/O MICROSCOPE (AUTO) Routine 09/22/2024 3:51 PM EDT Vaginal itching from Last 3 Months Results * (ABNORMAL) Vaginitis DNA Probe (09/22/2024 9:14 PM EDT) Source .VAGINAL SWAB 09/22/2024 9:14 PM EDT [facility] [employer]oo Trichomonas NEGATIVE NEGATIVE 09/22/2024 9:14 PM EDT [facility] Comment:for Trichomonas Vagi nalis GARDNERELLA VAGINALIS POSITIVE(A) NEGATIVE 09/22/2024 9:14 PM EDT [facility] [employer] Comment:for Gardnerella vagi nalis Zaida species NEGATIVE NEGATIVE 9:14 PM EDT [facility] [employer] Comment: for Zaida sp. Method of testing is a DNA probe intended for detection and identification of Zaida species, Gardnerella vaginalis, and Trichomonas vaginalis nucleic acid in vaginal fluid specimens from patients with symptoms of vaginitis/vaginosis. SPECIMEN FROM CERVIX OR VAGINA / Unknown 09/22/2024 9:14 PM EDT 09/22/2024 9:14 PM EDT us Poli Hopper DO MICROBIOLOGY - GENERAL ORDERAB LES [place] [address], [facility] [phone] * POCT Urinalysis No Micro (Auto) (09/22/2024 [...] Result from Last 3 Months Insurance MEDICARE MEDICARE Advance Directives * Full Code (Latest Code Status on File) Date Activated Date Inactivated Comments 10/11/2020 12:36 PM 10/12/2020 3:44 PM Care Teams Mash Filter Press Operator Relationship Specialty Start Date End Date Al Soto DO [address] [facility] [place] [id number] PCP - General Internal Medicine 01/25/24
--- OUTSIDE RECORDS SUMMARY | 2024-12-08 10:10 | XMS_ITS | Encounter Summary ---
Author Organization [facility] Address [address] [place], [place] [id number] Care Team Providers Care Necktie Stitcher Name Role Phone Al Soto DO Primary Care Provider [phone] Pcp, No Primary Care Provider Unavailabl e Source Comments In the event this information is protected by the Federal Confidentiality of Alcohol and Drug AbusePatient Records regulations: The Federal rules restrict any use of the information to criminally investigate or prosecute any alcohol or drug abuse patient.[facility] Encounter Details Date Type Department Care Team [...] on filedocumented in this encounter Care Teams Necktie Stitcher Relationship Specialty Start Date End Date Al Soto DO [address] [facility] [address] [place] [address] PCP - General 05/10/02 10/04/21 Pcp, No PCP - General 10/05/21 04/22/22 documented as of this encounter
--- OUTSIDE RECORDS SUMMARY | 2024-12-08 10:10 | XMS_ITS | Encounter Summary ---
Author Organization [facility] Address [address] [place] [address] Phone Care Team Providers Care Incising Machine Operator Name Role Phone Unavailable Primary Care Provider Unavailabl e Encounter Details Date Type Department Care Team (Late st Contact Info) Description 09/21/2024 Telephone [facility] [address] [phone] Bonifacio Melton MD [address] [facility], [address] [place] [address] Social History Tobacco Use Types Packs/Day [...]
--- OUTSIDE RECORDS SUMMARY | 2024-12-08 10:10 | XMS_ITS | Encounter Summary ---
Author Organization [facility] Address [address] [place] [address] Phone Care Team Providers Care Chairman & Ceo Name Role Phone Unavailable Primary Care Provider Unavailabl e Encounter Details Date Type Department Care Team (Late st Contact Info) Description 11/09/2024 Transcribe Orders [facility] [address] [place] [address] Nely Whittington MA Social History Tobacco Use Types Packs/Day Years [...]
--- OUTSIDE RECORDS SUMMARY | 2024-12-08 10:10 | XMS_ITS | Clinical Summary ---
Author Organization [facility] Address [address] [place], [place] [phone] Care Team Providers Care Welcome Wagon Hostess Name Role Phone Unavailable Primary Care Provider [...]
--- OUTSIDE RECORDS SUMMARY | 2024-12-08 10:10 | XMS_ITS | Clinical Summary ---
Author Organization [facility] Address [address] [place] [address] Care Team Providers Care Strap Setter Name Role Phone Unavailable Primary Care Provider [...]
--- OUTSIDE RECORDS SUMMARY | 2024-12-08 10:19 | XMS_ITS | CCD ---
Author Organization [facility] CliniSyma Care Team Providers Care Galley Boy Name Role Phone DR AL SOTO Admitting Unavailable BALL, DR HERNÁNDEZ Attending Unavailable BALL, DR HERNÁNDEZ Primary Care Unavailable BALL, DR HERNÁNDEZ Consulting Unavailable Zieber, Dandre Consulting Unavailable BALL, DR HERNÁNDEZ Admitting Unavailable [...] Unavailable Al Soto DO Primary Care Provider [phone] Al Soto DO Attending Provider [phone] Al Soto DO Primary Care Provider [phone] STEVIE DELGADO Referring AL Chaney Primary Care Unavailable Al Soto DO Primary Care Provider Al Soto DO Attending Provider [place] MEZA, Marcela Attending Provider Unavailab le Allergies Allergy Classification Reported Allergen(s) Allergy Type Date of Onset Reaction(s) Facility (1 source) Sulfamethoxazole / Trimethoprim Drug Allergy [facility] Repository (2 sources) patient allergy list reviewed by nurse or physicia Propensity to adverse reactions 06-30-19 18 Comment:Done Spreedly Other (2 sources) Allergies Reconciled Propensity to adverse reactions Unknown Spreedly Other (4 sources) Substance with sulfonamide structure and antibacterial mechanism of action (substance) Drug allergy 03-29-19 21 Hives, Other (See Comments) [facility] (1 source) Sulfamethoxazole / Trimethoprim Drug Allergy 09-23-19 25 [facility] Medications Current Medications Medication Drug Class(es) Dates Sig (Normalized) Sig (Original) amLODIPine 2.5 mg oral tablet (11 sources) Dihydropyridine Calcium Channel Mar Start: 02-29-2024 [...] Calcium Active baclofen 10 mg oral tablet (2 sources) gamma-Aminobutyric Acid-ergic Agonist Start: take 1 tablet by mouth once daily at bedtime Baclofen 10 mg tablet Active 10 MG PO Daily at bedtime 12 30July 29, 2024 12:00am Complies with drug therapy estradiol 0.1 mg/ml vaginal cream (6 sources) Estrogen Start: estradiol (ESTRACE VAGINAL) 0.1 MG/GM vaginal cream Indications: Postmenopausal atrophic vaginitis Place 1 g vaginally Twice a Week 42.5 g 3 01/25/2024 Active Start: 05-11-2023 Estradiol 0.01 % (0.1 mg/gram) cream Active 1 APPLICATOR VAGINAL As Directed May 11, 2023 1:00am Complies with drug therapy Estradiol 0.1 MG /GM as directed Vaginal Active levothyroxine sodium 0.075 mg oral tablet (11 sources) l-Thyroxine Start: 03-03-2024 take 1 tablet [...] daily for 90 days *Pick strength-form from [employer] for eRX* Feb, Active Start: 02-26-2022 take 1 tablet by suzie th once daily Euthyrox 75mcg Euthyrox 75mcg, 1 Tablet daily # 90, 02/26/2022, Ref. x3. Active oral daily for 90 *Pick strength-form from [employer] for eRX* Feb, Active take 1 tablet by suzie th once daily levothyroxine (SYNTHROID) 50 MCG tablet Take 1 tablet by mouth Daily Active lisinopril 20 mg oral tablet (6 sources) Angiotensin Converting Enzyme Inhibitor Start: 03-14-2024 End: 03-14-2024 take 1 tablet by mouth twice daily Lisinopril 20 mg tablet Active 20 MG PO Twice daily 180 90 March 14, 2024 1:00am Complies with drug therapy lovastatin 20 mg oral tablet (11 sources) HMG-CoA Reductase Inhibitor Start: 02-22-2024 take 1 tablet by mouth once daily Lovastatin 20 mg tablet Active 0 .ROUTE .COMPLEX 90 February 22, 2024 9:38am Take 1 tablet by mouth once daily for 90 days Complies with drug therapy Start: 02-26-2022 End: 02-22-2024 take 1 tablet by mouth once daily Lovastatin 20 mg tablet Discontinued 20 MG PO Daily May 11, 2023 1:00am February 22, 2024 9:39am nystatin [id number] unt/ml / triamcinolone acetonide 1 mg/ml topical cream (1 source) Polyene Antifungal, Corticosteroid Start: 09-22-2024 nystatin-triamcinolone (MYCOLOG II) 617098-2.1 UNIT/GM-% cream Apply topically 2 times daily. 1 each 09/22/2024 Active polymyxin b 92504 unt/ml / trimethoprim 1 mg/ml ophthalmic solution (4 sources) Dihydrofolate Reductase Inhibitor Antibacterial, Polymyxin-class Antibacterial [...] Sep, Not-Taking/PRN fluconazole 150 mg oral tablet (2 sources) Azole Antifungal Start: 05-10-2024 End: 09-02-2024 take 1 tablet by mouth once daily Fluconazole 150 mg tablet Discontinued 150 MG PO Daily 03 23May 10, 2024 1:00am September 02, 2024 7:37am losartan potassium 100 mg oral tablet (9 sources) Angiotensin 2 Receptor Mar Start: 05-11-2023 [...] Sep, Not-Taking/PRN predniSONE 20 mg oral tablet (2 sources) Start: 07-29-2024 End: 09-02-2024 Prednisone 20 mg [...] Onset: 08-21-2021 Chronic Disorders of lipid metabolism (19 sources) Pure hypercholesterolemia, unspecified; Translations: [Hyperlipidemia] Onset: 06-29-2016 Resolved: 02-20-2021 Chronic Essential hypertension (14 sources) Essential (primary) hypertension; Translations: [Essential hypertension] Onset: 03-01-2022 Chronic Gastrointestinal hemorrhage (4 sources) Hematochezia; Translations: [Melena] 04-26-2024 Episodic Genitourinary symptoms and ill-defined conditions (3 sources) Polyuria; Translations: [Other polyuria] Episodic Immunizations and screening for infectious disease (3 sources) Vaccination given; Translations: [Encounter for immunization] Episodic Inflammation; infection of eye (except that caused by tuberculosis or sexually transmitteddisease) (2 sources) Bacterial conjunctivitis; Translations: [Unspecified conjunctivitis] 05-11-2023 Episodic Noninfectious gastroenteritis (4 sources) Colitis; Translations: [Noninfective gastroenteritis and colitis, unspecified] 04-26-2024 Episodic Nutritional deficiencies (3 sources) Vitamin D deficiency; Translations: [Vitamin D deficiency, unspecified] Chronic Other aftercare (2 sources) Other technician terminal and repeater (current) drug therapy; Translations: [OTH FISHER MUSSEL CURRENT DRUG THERAPY] Onset: 03-01-2022 Episodic Other aftercare (3 sources) Long-term current use of drug therapy; Translations: [Other technician terminal and repeater (current) drug therapy] Episodic Other connective tissue disease (4 sources) History of cervical spine fusion; Translations: [Arthrodesis status] 09-20-2024 Episodic Other connective tissue disease (3 sources) Radicular pain; Translations: [Neuralgia and neuritis, [...] fall; Translations: [History of falling] Episodic Other non-traumatic joint disorders (1 source) Shoulder pain; Translations: [Pain in unspecified shoulder] 10-31-2024 Episodic Other nutritional; endocrine; and metabolic disorders (2 sources) Hypercalcemia; Translations: [Hypercalcemia] 11-18-2024 Chronic Other nutritional; endocrine; and metabolic disorders (6 sources) Overweight; Translations: [Overweight] 02-19-2024 Episodic Other nutritional; endocrine; and metabolic disorders (1 source) Overweight; Translations: [Overweight] 03-14-2024 Episodic Other screening for suspected conditions (not mental disorders or infectious disease) (9 sources) Encounter for screening mammogram for malignant [...] Spondylosis; intervertebral disc disorders; other back problems (7 sources) Cervical spondylosis; Translations: [Other spondylosis with radiculopathy, cervical region] 09-20-2024 Chronic Spondylosis; intervertebral disc disorders; other back problems (4 sources) Low back pain; Translations: [Low back pain, unspecified] Onset: 10-12-2018 07-29-2024 Episodic Thyroid disorders (17 sources) Autoimmune thyroiditis; Translations: [Thyroiditis] Onset: 03-01-2022 [...] Test Name Value Interpretation Reference Range Facility Albumin [Mass/volume] in Ser um or PlasmaOrdered By: Al Soto on 10-31-2024 Albumin [Mass/Vol] 4.2 g/dL 2.9-4.4 [facility] Basophils Auto (Bld) [#/Vol] Ordered By: Al Soto on 10-31-2024 Basophils (Bld) [#/Vol] 0.0 10 3/uL 0.0-0.1 [facility] Basophils/100 WBC Auto (Bld) Ordered By: Al Soto on 10-31-2024 Basophils/100 WBC (Bld) 0.5 % 0.2-2.0 [facility] Eosinophils/100 WBC Auto (Bl d)Ordered By: Al Soto on 10-31-2024 Eosinophils/100 WBC (Bld) 1.2 % 0.9-7.0 [facility] Erythrocyte distribution wid th Auto (RBC) [Ratio]Ordered By: Al Soto on 10-31-2024 Erythrocyte distribution width (RBC) [Ratio] 13.8 % 11.0-15.0 [facility] Glomerular filtration rate ( GFR) estimation in non- AmericanOrdered By: Al Soto on 10-31-2024 GFR/1.73 sq M.predicted among non-blacks MDRD (S/P/Bld) [Vol rate/Area] mL/min/{1.73_m2} >=60 mL/min/1.73m 2 [facility] Hematocrit Auto (Bld) [Volum e fraction]Ordered By: Al Soto on 10-31-2024 Hematocrit (Bld) [Volume fraction] 44.1 % 36.0-48.0 [facility] Hemoglobin [Mass/volume] in BloodOrdered By: Al Soto 10-31-2024 Hemoglobin (Bld) [Mass/Vol] 15.0 g/dL 12.0-16.0 [facility] IgA [Mass/volume] in Serum o r PlasmaOrdered By: Al Soto 10-31-2024 IgA [Mass/Vol] 247 mg/dL 64-422 [facility] IgG [Mass/volume] in Serum o r PlasmaOrdered By: Al oSto 10-31-2024 IgG [Mass/Vol] 1471 mg/dL 586-1602 [facility] IgM [Mass/volume] in Serum o r PlasmaOrdered By: Al Soto 10-31-2024 IgM [Mass/Vol] 64 mg/dL 26-217 [facility] Immunoglobulin light chains. kappa.free [Mass/volume] in SerumOrdered By: Al Soto 10-31-2024 Immunoglobulin light chains.kappa.free (S) [Mass/Vol] 24.8 mg/L Abnormal 3.3-19.4 [facility] Immunoglobulin light chains. kappa.free/Immunoglobulin light chains.lambda.free [MassOrdered By: Al Soto on 10-31-2024 Immunoglobulin light chains.kappa.free/Immuno globulin light chains.lambda.free (S) [Mass ratio] 1.44 0.26-1.65 [facility] Comment on above: Performed at: [address] [id number] Director: Craig Goel PhD, Phone: [phone] Immunoglobulin light chains. lambda.free [Mass/volume] in Serum or PlasmaOrdered By: Al Soto on 10-31-2024 Immunoglobulin light chains.lambda.free [Mass/Vol] 17.2 mg/L 5.7-26.3 [facility] Laboratory - Chemistry and C hemistry - challengeOrdered By: Al Soto on 10-31-2024 Calcium [Mass/Vol] 10.3 mg/dL High 8.5-10.1 [facility] Chloride [Moles/Vol] 104 mmol/L 98-107 [facility] CO2 [Moles/Vol] 24.8 mmol/L 21.0-32.0 [facility] Creatinine [Mass/Vol] 0.90 mg/dL 0.55-1.02 [facility] GFR/1.73 sq M.predicted MDRD (S/P/Bld) [Vol rate/Area] mL/min/{1.73_m2} >=60 mL/min/1.73m 2 [facility] Glucose [Mass/Vol] 110 mg/dL High 74-106 [facility] Potassium [Moles/Vol] 3.9 mmol/L 3.5-5.1 [facility] Sodium [Moles/Vol] 140 mmol/L 136-145 [facility] Urea nitrogen [Mass/Vol] 12.0 mg/dL 7.0-18.0 [facility] Urea nitrogen/Creatinine [Mass ratio] 13.3 mg/mg [facility] Laboratory - Hematology and Cell countsOrdered By: Al Soto on 10-31-2024 Immature granulocytes/100 WBC (Bld) 0.0 % 0.0-0.5 [facility] Leukocytes [#/volume] correc nayla for nucleated erythrocytes in Blood by Automated counOrdered By: Al Soto on 10-31-2024 WBC corrected for nucl RBC Auto (Bld) [#/Vol] 6.6 10 3/uL 4.0-11.0 [facility] Lymphocytes Auto (Bld) [#/Vo l]Ordered By: Al Soto on 10-31-2024 Lymphocytes (Bld) [#/Vol] 3.1 10 3/uL 1.2-3.8 [facility] Lymphocytes/100 WBC Auto (Bl d)Ordered By: Al Soto on 10-31-2024 Lymphocytes/100 WBC (Bld) 46.7 % 20.5-60.0 [facility] MCH Auto (RBC) [Entitic mass ]Ordered By: Al Soto on 10-31-2024 MCH (RBC) [Entitic mass] 29.7 pg 26.7-34.0 [facility] MCHC Auto (RBC) [Mass/Vol]Or dered By: Al Soto on 10-31-2024 MCHC (RBC) [Mass/Vol] 34.0 g/dL 29.9-35.2 [facility] MCV Auto (RBC) [Entitic vol] Ordered By: Al Soto on 10-31-2024 MCV (RBC) [Entitic vol] 87.3 fL 81.0-99.0 [facility] Monocytes Auto (Bld) [#/Vol] Ordered By: Al Soto on 10-31-2024 Monocytes (Bld) [#/Vol] 0.3 10 3/uL 0.3-0.8 [facility] Monocytes/100 WBC Auto (Bld) Ordered By: Al Soto on 10-31-2024 Monocytes/100 WBC (Bld) 4.9 % 1.7-12.0 [facility] Neutrophils Auto (Bld) [#/Vo l]Ordered By: Al Soto on 10-31-2024 Neutrophils (Bld) [#/Vol] 3.1 10 3/uL 1.4-6.5 [facility] Neutrophils/100 WBC Auto (Bl d)Ordered By: Al Soto on 10-31-2024 Neutrophils/100 WBC (Bld) 46.7 % 43.0-75.0 [facility] No Panel InformationOrdered By: Al Soto on 10-31-2024 Eosinophils # (Auto) 0.1 10 3/uL 0.0-0.7 [facility] Immature Granulocyte # (Auto) 0.00 10 3/uL 0.00-0.03 [facility] Protein Electrophoresis M-Nestor Not Observed g/dL Not Observed [facility] Protein Electrophoresis Note Comment . [facility] Comment on above: Protein electrophore sis scan will follow via computer,mail, or hand turner delivery. Platelet mean volume Auto (B ld) [Entitic vol]Ordered By: Al Soto on 10-31-2024 Platelet mean volume (Bld) [Entitic vol] 11.6 fL 9.5-13.5 [facility] Platelets Auto (Bld) [#/Vol] Ordered By: Al Soto on 10-31-2024 Platelets (Bld) [#/Vol] 232 10 3/uL 150-450 [facility] Protein [Mass/volume] in Ser um or PlasmaOrdered By: Al Soto on 10-31-2024 Protein [Mass/Vol] 8.5 g/dL 6.0-8.5 [facility] RBC Auto (Bld) [#/Vol]Ordere d By: Al Soto on 10-31-2024 RBC (Bld) [#/Vol] 5.05 10 6/uL 4.20-5.40 [facility] Serum globulin measurement ( mass/volume)Ordered By: Al Soto on 10-31-2024 Globulin (S) [Mass/Vol] 4.3 g/dL Abnormal 2.2-3.9 [facility] Serum or plasma albumin/glob ulin mass ratioOrdered By: Al Soto 10-31-2024 Albumin/Globulin [Mass ratio] 1.0 {ratio} 0.7-1.7 [facility] Serum or plasma alpha 1 glob ulin measurement by electrophoresis (mass/volume)Ordered By: Al Soto on 10-31-2024 Alpha 1 globulin Elph [Mass/Vol] 0.3 g/dL 0.0-0.4 [facility] Serum or plasma alpha 2 glob ulin measurement by electrophoresis (mass/volume)Ordered By: Al Soto on 10-31-2024 Alpha 2 globulin Elph [Mass/Vol] 1.1 g/dL Abnormal 0.4-1.0 [facility] Serum or plasma anion gap de terminationOrdered By: Al Soto on 10-31-2024 Anion gap [Moles/Vol] 15.1 mmol/L [facility] Serum or plasma beta globuli n measurement by electrophoresis (mass/volume)Ordered By: Al Soto on 10-31-2024 Beta globulin Elph [Mass/Vol] 1.4 g/dL Abnormal 0.7-1.3 [facility] Serum or plasma gamma globul in measurement by electrophoresis (mass/volume)Ordered By: Al Soto on 10-31-2024 Gamma globulin Elph [Mass/Vol] 1.5 g/dL 0.4-1.8 [facility] Serum or plasma immunoelectr ophoresis interpretationOrdered By: Al Soto on 10-31-2024 Interpretation IEP [Interp] Comment . [facility] Comment on above: No monoclonality det ected. Glomerular filtration rate ( GFR) estimation in non- AmericanOrdered By: Marcela Haynes on 10-28-2024 GFR/1.73 sq M.predicted among non-blacks MDRD (S/P/Bld) [Vol rate/Area] mL/min/{1.73_m2} >=60 mL/min/1.73m 2 [facility] Laboratory - Chemistry and C hemistry - challengeOrdered By: Marcela Haynes on 10-28-2024 Creatinine [Mass/Vol] 0.85 mg/dL 0.55-1.02 [facility] GFR/1.73 sq M.predicted MDRD (S/P/Bld) [Vol rate/Area] mL/min/{1.73_m2} >=60 mL/min/1.73m 2 [facility] Vaginitis DNA Probeon 2024 Zaida Negative Normal NEG [facility] Comment on above: Result Comment: for Zaida sp. Method of testing is a DNA probe intended for detection and identification of Zaida species, Gardnerella vaginalis, and Trichomonas vaginalis nucleic acid in vaginal fluid specimens from patients with symptoms of vaginitis/vaginosis. Performed By: #### V AGP #### [employer] [address] [place] [id number] [employer]: Matthew España MD Gardnerella Positive Abnormal NEG [facility] Comment on above: Result Comment: for Gardnerella vaginalis Performed By: #### V AGP #### [employer] [address] [place] [id number] [employer]: Matthew España MD Trichomonas Negative Normal NEG [facility] Comment on above: Result Comment: for Trichomonas Vaginalis Performed By: #### V AGP #### [facility] [address] [place], [place] [id number] [employer]: Matthew España MD Vaginitis DNA Probeon 2024 Source .VAGINAL SWAB Normal [facility] Comment on above: Performed By: #### V AGP #### [facility] [address] [place], [place] [id number] [employer]: Matthew España MD Basophils Auto (Bld) [#/Vol] on 04-18-2024 Basophils (Bld) [#/Vol] Automated basoph il count 0.0-0.1 [facility] Basophils/100 WBC Auto (Bld) on 04-18-2024 Basophils/100 WBC (Bld) Automated basophil % 0. 2-2.0 [facility] Eosinophils/100 WBC Auto (Bl d)on 04-18-2024 Eosinophils/100 WBC (Bld) Automated eosinophil % Low 0.9-7.0 [facility] Erythrocyte distribution wid th Auto (RBC) [Ratio]on 04-18-2024 Erythrocyte distribution width (RBC) [Ratio] Erythrocyte distribution width [Ratio] by Automated count 11.0-15.0 [facility] Estimated glomerular filtrat ion rate (GFR) non- Americanon 04-18-2024 GFR/1.73 sq M.predicted among non-blacks MDRD (S/P/Bld) [Vol rate/Area] Estimated glomerular filtration rate (GFR) non- Low >=60 mL/min/1.73m 2 [facility] Hematocrit Auto (Bld) [Volum e fraction]on 04-18-2024 Hematocrit (Bld) [Volume fraction] Hematocrit [Volume Fraction] of Blood by Automated count 36.0-48.0 [facility] Hemoglobin [Mass/volume] in Bloodon 04-18-2024 Hemoglobin (Bld) [Mass/Vol] Hemoglobin [Mass/volume] in Blood 12.0-16.0 [facility] Laboratory - Chemistry and C hemistry - challengeon 04-18-2024 Calcium [Mass/Vol] 9.8 mg/dL 8.5-10.1 [facility] Chloride [Moles/Vol] 101 mmol/L 98-107 [facility] CO2 [Moles/Vol] 24.7 mmol/L 21.0-32.0 [facility] Creatinine [Mass/Vol] 1.02 mg/dL 0.55-1.02 [facility] GFR/1.73 sq M.predicted MDRD (S/P/Bld) [Vol rate/Area] mL/min/{1.73_m2} >=60 mL/min/1.73m 2 [facility] Glucose [Mass/Vol] 123 mg/dL High 74-106 [facility] Potassium [Moles/Vol] 3.6 mmol/L 3.5-5.1 [facility] Sodium [Moles/Vol] 136 mmol/L 136-145 [facility] Urea nitrogen [Mass/Vol] 13.0 mg/dL 7.0-18.0 [facility] Urea nitrogen/Creatinine [Mass ratio] 12.7 mg/mg [facility] Laboratory - Hematology and Cell countson 04-18-2024 Immature granulocytes/100 WBC (Bld) 0.2 % 0.0-0.5 [facility] Leukocytes [#/volume] correc nayla for nucleated erythrocytes in Blood by Automated counon 04-18-2024 WBC corrected for nucl RBC Auto (Bld) [#/Vol] Leukocytes [#/volume] corrected for nucleated erythrocytes in Blood by Automated coun High 4.0-11.0 [facility] Lymphocytes Auto (Bld) [#/Vo l]on 04-18-2024 Lymphocytes (Bld) [#/Vol] Lymphocytes [#/volume] in Blood by Automated count High 1.2-3.8 [facility] Lymphocytes/100 WBC Auto (Bl d)on 04-18-2024 Lymphocytes/100 WBC (Bld) Lymphocytes/100 leukocytes in Blood by Automated count 20.5-60.0 [facility] MCH Auto (RBC) [Entitic mass ]on 04-18-2024 MCH (RBC) [Entitic mass] MCH [Entitic ma ss] by Automated count 26.7-34.0 [facility] MCHC Auto (RBC) [Mass/Vol]on 04-18-2024 MCHC (RBC) [Mass/Vol] MCHC [Mass/volume] by Automated count 29.9-35.2 [facility] MCV Auto (RBC) [Entitic vol] on 04-18-2024 MCV (RBC) [Entitic vol] MCV [Entitic vol ume] by Automated count 81.0-99.0 [facility] Monocytes Auto (Bld) [#/Vol] on 04-18-2024 Monocytes (Bld) [#/Vol] Automated blood monocyte count 0.3-0.8 [facility] Monocytes/100 WBC Auto (Bld) on 04-18-2024 Monocytes/100 WBC (Bld) Automated monocyte % 1. 7-12.0 [facility] Neutrophils Auto (Bld) [#/Vo l]on 04-18-2024 Neutrophils (Bld) [#/Vol] Neutrophils [#/volume] in Blood by Automated count High 1.4-6.5 [facility] Neutrophils/100 WBC Auto (Bl d)on 04-18-2024 Neutrophils/100 WBC (Bld) Automated neutrophil % 43.0-75.0 [facility] No Panel Informationon 04-18 Eosinophils # (Auto) 0.0 10 3/uL 0.0-0.7 [facility] Immature Granulocyte # (Auto) 0.02 10 3/uL 0.00-0.03 [facility] Platelet mean volume Auto (B ld) [Entitic vol]on 04-18-2024 Platelet mean volume (Bld) [Entitic vol] Platelet mean volume [Entitic volume] in Blood by Automated count 9.5-13.5 [facility] Platelets Auto (Bld) [#/Vol] on 04-18-2024 Platelets (Bld) [#/Vol] Platelets [#/vol ume] in Blood by Automated count 150-450 [facility] RBC Auto (Bld) [#/Vol]on RBC (Bld) [#/Vol] Erythrocytes [#/volume] in Blood by Automated count 4.20-5.40 [facility] Serum or plasma anion gap de terminationon 04-18-2024 Anion gap [Moles/Vol] Serum or plasma anion gap determination [facility] Basophils Auto (Bld) [#/Vol] on 03-08-2024 Basophils (Bld) [#/Vol] Automated basoph il count 0.0-0.1 [facility] Basophils/100 WBC Auto (Bld) on 03-08-2024 Basophils/100 WBC (Bld) Automated basophil % 0. 2-2.0 [facility] Cholesterol in LDL Calc [Mas s/Vol]on 03-08-2024 Cholesterol in LDL [Mass/Vol] Cholesterol in LDL [Mass/volume] in Serum or Plasma by calculation [facility] Comment on above: <100 mg/dl [id number] 0-129 mg/dl NEAR OR ABOVE [id number] mg/dl BORDERLINE [id number] mg/dl HIGH>190 mg/dl VERY HIGH Cholesterol in VLDL Calc [Ma ss/Vol]on 03-08-2024 Cholesterol in VLDL [Mass/Vol] Cholesterol in VLDL [Mass/volume] in Serum or Plasma by calculation [facility] Eosinophils/100 WBC Auto (Bl d)on 03-08-2024 Eosinophils/100 WBC (Bld) Automated eosinophil % 0.9-7.0 [facility] Erythrocyte distribution wid th Auto (RBC) [Ratio]on 03-08-2024 Erythrocyte distribution width (RBC) [Ratio] Erythrocyte distribution width [Ratio] by Automated count 11.0-15.0 [facility] Estimated glomerular filtrat ion rate (GFR) non- Americanon 03-08-2024 GFR/1.73 sq M.predicted among non-blacks MDRD (S/P/Bld) [Vol rate/Area] Estimated glomerular filtration rate (GFR) non- >=60 mL/min/1.73m 2 [facility] Globulin Calc (S) [Mass/Vol] on 03-08-2024 Globulin (S) [Mass/Vol] Serum globulin measurement by calculation (mass/volume) [facility] Hematocrit Auto (Bld) [Volum e fraction]on 03-08-2024 Hematocrit (Bld) [Volume fraction] Hematocrit [Volume Fraction] of Blood by Automated count 36.0-48.0 [facility] Hemoglobin [Mass/volume] in Bloodon 03-08-2024 Hemoglobin (Bld) [Mass/Vol] Hemoglobin [Mass/volume] in Blood 12.0-16.0 [facility] Laboratory - Chemistry and C hemistry - challengeon 03-08-2024 Albumin [Mass/Vol] 3.7 g/dL 3.4-5.0 [facility] ALP [Catalytic activity/Vol] 76 U/L 46-116 [facility] ALT [Catalytic activity/Vol] 56 U/L 14-59 [facility] AST [Catalytic activity/Vol] 45 U/L High 15-37 [facility] Bilirubin [Mass/Vol] 0.5 mg/dL 0.2-1.0 [facility] Calcium [Mass/Vol] 9.2 mg/dL 8.5-10.1 [facility] Chloride [Moles/Vol] 106 mmol/L 98-107 [facility] Cholesterol [Mass/Vol] 151 mg/dL <=200 [facility] Cholesterol in HDL [Mass/Vol] 37 mg/dL Low 40-60 [facility] Comment on above: > or =60 mg/dl - LOW CARDIOVASCULAR RISK<40 mg/dl - HIGH CARDIOVASCULAR RISK CO2 [Moles/Vol] 27.0 mmol/L 21.0-32.0 [facility] Creatinine [Mass/Vol] 0.91 mg/dL 0.55-1.02 [facility] GFR/1.73 sq M.predicted MDRD (S/P/Bld) [Vol rate/Area] mL/min/{1.73_m2} >=60 mL/min/1.73m 2 [facility] Glucose [Mass/Vol] 107 mg/dL High 74-106 [facility] Potassium [Moles/Vol] 4.0 mmol/L 3.5-5.1 [facility] Protein [Mass/Vol] 7.6 g/dL 6.4-8.2 [facility] Sodium [Moles/Vol] 142 mmol/L 136-145 [facility] Triglyceride [Mass/Vol] 149 mg/dL <=150 [facility] TSH Qn 1.900 m[IU]/L 0.358-3.740 [facility] Urea nitrogen [Mass/Vol] 13.0 mg/dL 7.0-18.0 [facility] Urea nitrogen/Creatinine [Mass ratio] 14.3 mg/mg [facility] Laboratory - Hematology and Cell countson 03-08-2024 Immature granulocytes/100 WBC (Bld) 0.1 % 0.0-0.5 [facility] Leukocytes [#/volume] correc nayla for nucleated erythrocytes in Blood by Automated counon 03-08-2024 WBC corrected for nucl RBC Auto (Bld) [#/Vol] Leukocytes [#/volume] corrected for nucleated erythrocytes in Blood by Automated coun 4.0-11.0 [facility] Lymphocytes Auto (Bld) [#/Vo l]on 03-08-2024 Lymphocytes (Bld) [#/Vol] Lymphocytes [#/volume] in Blood by Automated count 1.2-3.8 [facility] Lymphocytes/100 WBC Auto (Bl d)on 03-08-2024 Lymphocytes/100 WBC (Bld) Lymphocytes/100 leukocytes in Blood by Automated count 20.5-60.0 [facility] MCH Auto (RBC) [Entitic mass ]on 03-08-2024 MCH (RBC) [Entitic mass] MCH [Entitic ma ss] by Automated count 26.7-34.0 [facility] MCHC Auto (RBC) [Mass/Vol]on 03-08-2024 MCHC (RBC) [Mass/Vol] MCHC [Mass/volume] by Automated count 29.9-35.2 [facility] MCV Auto (RBC) [Entitic vol] on 03-08-2024 MCV (RBC) [Entitic vol] MCV [Entitic vol ume] by Automated count 81.0-99.0 [facility] Monocytes Auto (Bld) [#/Vol] on 03-08-2024 Monocytes (Bld) [#/Vol] Automated blood monocyte count 0.3-0.8 [facility] Monocytes/100 WBC Auto (Bld) on 03-08-2024 Monocytes/100 WBC (Bld) Automated monocyte % 1. 7-12.0 [facility] Neutrophils Auto (Bld) [#/Vo l]on 03-08-2024 Neutrophils (Bld) [#/Vol] Neutrophils [#/volume] in Blood by Automated count 1.4-6.5 [facility] Neutrophils/100 WBC Auto (Bl d)on 03-08-2024 Neutrophils/100 WBC (Bld) Automated neutrophil % Low 43.0-75.0 [facility] No Panel Informationon 03-08 Eosinophils # (Auto) 0.2 10 3/uL 0.0-0.7 [facility] Immature Granulocyte # (Auto) 0.01 10 3/uL 0.00-0.03 [facility] Platelet mean volume Auto (B ld) [Entitic vol]on 03-08-2024 Platelet mean volume (Bld) [Entitic vol] Platelet mean volume [Entitic volume] in Blood by Automated count 9.5-13.5 [facility] Platelets Auto (Bld) [#/Vol] on 03-08-2024 Platelets (Bld) [#/Vol] Platelets [#/vol ume] in Blood by Automated count 150-450 [facility] RBC Auto (Bld) [#/Vol]on RBC (Bld) [#/Vol] Erythrocytes [#/volume] in Blood by Automated count 4.20-5.40 [facility] Serum or plasma albumin/glob ulin mass ratioon 03-08-2024 Albumin/Globulin [Mass ratio] Serum or plasma albumin/globulin mass ratio [facility] Serum or plasma anion gap de terminationon 03-08-2024 Anion gap [Moles/Vol] Serum or plasma anion gap determination [facility] Serum or plasma total choles terol/high density lipoprotein (HDL) cholesterol mass lai 03-08-2024 Cholesterol.total/Choles terol in HDL [Mass ratio] Serum or plasma total cholesterol/high density lipoprotein (HDL) cholesterol mass rat [facility] Comment on above: 3.3 - 4.4 LOW RISK4. 4 - 7.1 AVERAGE RISK7.1 - 11.0 MODERATE RISK>11.0 HIGH RISK GEOVANNI - TSHon 06-05-2022 TSH 0.299 uIU/mL Critically low 0.358-3.740 [facility] Comment on above: Performed By: #### D ATTSH #### [facility] [address] [place], [place] [address] Dr. Kali Haynes TSH RANGE SEE BELOW Normal [facility] Comment on above: Result Comment: <0.3 4 UIU/ml HYPERTHYROID 0.34-5.60 UIU/ml EUTHYROID >5.60 UIU/ml HYPOTHYROID Performed By: #### D ATTSH #### [facility] [address] [place], [place] [address] Dr. Kali Haynes MG MAMM SCREEN 3D IFEANYI CADon 05-16-2022 MG MAMM SCREEN 3D IFEANYI CAD Patient: EPI DAILEY Exam Date: 05/16/2022 : 1950 Gender:F Ordering : DR AL SOTO D.O. Admission #: [id number] Family : Order #: [id number] CLICK HERE TO VIEW EXAM RADIOLOGY REPORT [...] Treatments None Family Cancers None LOCATION: [facility] BREAST COMPOSITION: Heterogeneously dense,which may obscure small [...] M.D. on 05/16/2022 at 14:31 Normal [facility] CBC AUTO DIFFon 02-24-2022 BASO # 0.0 103/ul Normal 0.0-0.1 [facility] Comment on above: Performed By: #### C BC #### [facility] [address] [place] [address] [address] Kali Haynes Basophils/100 WBC (Bld) 0.5 % Normal 0.2-2.0 [facility] Comment on above: Performed By: #### C BC #### [facility] [address] [address] Dr. Kali Haynes EO # 0.2 103/ul Normal 0.0-0.7 [facility] Comment on above: Performed By: #### C BC #### [facility] [address] [place] [address] Dr. Kali Haynes Eosinophils/100 WBC (Bld) 2.8 % Normal 0.9-7.0 [facility] Comment on above: Performed By: #### C BC #### [facility] [address] [address] Dr. Kali Haynes Erythrocyte distribution width (RBC) [Ratio] 13.9 % Normal 11.0-15.0 [facility] Comment on above: Performed By: #### C BC #### [facility] [address] [place] [address] Dr. Kali Haynes Hematocrit (Bld) [Volume fraction] 43.0 % Normal 36.0-48.0 [facility] Comment on above: Performed By: #### C BC #### [facility] [address] [place] [address] Dr. Kali Haynes Hemoglobin (Bld) [Mass/Vol] 14.5 g/dL Normal 12.0-16.0 [facility] Comment on above: Performed By: #### C BC #### [facility] [address] [place] [address] Dr. Kali Haynes IG # 0.01 10e3/ul Normal 0.00-0.03 [facility] Comment on above: Performed By: #### C BC #### [facility] [address] [place] [address] Dr. Kali Haynes IG % 0.2 % Normal 0.0-0.5 [facility] Comment on above: Performed By: #### C BC #### [facility] [address] [place] [address] Dr. Kali Haynes LYMPH # 3.9 103/ul Critically high 1.2-3.8 [facility] Comment on above: Performed By: #### C BC #### [facility] [address] [place] [address] Dr. Kali Haynes Lymphocytes/100 WBC (Bld) 59.7 % Normal 20.5-60.0 [facility] Comment on above: Performed By: #### C BC #### [facility] [address] [place] [address] Dr. Kali Haynes MANUAL DIFF REQ NO Normal [facility] Comment on above: Performed By: #### C BC #### [facility] [address] [place] [address] Dr. Kali Haynes MCH (RBC) [Entitic mass] 29.3 pg Normal 26.7-34.0 [facility] Comment on above: Performed By: #### C BC #### [facility] [address] [place] [address] Dr. Kali Haynes MCHC (RBC) [Mass/Vol] 33.7 g/dL Normal 29.9-35.2 [facility] Comment on above: Performed By: #### C BC #### [facility] [address] [place] [address] Dr. Kali Haynes MCV (RBC) [Entitic vol] 86.9 fL Normal 81.0-99.0 [facility] Comment on above: Performed By: #### C BC #### [facility] [address] [place] [address] Dr. Kali Haynes MONO # 0.4 103/ul Normal 0.3-0.8 [facility] Comment on above: Performed By: #### C BC #### [facility] [address] [place] [address] Dr. Kali Haynes Monocytes/100 WBC (Bld) 6.5 % Normal 1.7-12.0 [facility] Comment on above: Performed By: #### C BC #### [facility] [address] [place] [address] Dr. Kali Haynes NEUT # 2.0 103/ul Normal 1.4-6.5 [facility] Comment on above: Performed By: #### C BC #### [facility] [address] [place] [address] Dr. Kali Haynes Neutrophils/100 WBC (Bld) 30.3 % Critically low 43.0-75.0 [facility] Comment on above: Performed By: #### C BC #### [facility] [address] [place] [address] Dr. Kali Haynes Platelet mean volume (Bld) [Entitic vol] 11.1 fL Normal 9.5-13.5 [facility] Comment on above: Performed By: #### C BC #### [facility] [address] [place] [address] Dr. Kali Haynes PLT 221 103/ul Normal 150-450 [facility] Comment on above: Performed By: #### C BC #### [facility] [address] [place] [address] Dr. Kali Haynes RBC 4.95 106/ul Normal 4.20-5.40 [facility] Comment on above: Performed By: #### C BC #### [facility] [address] [place] [address] Dr. Kali Haynes WBC 6.5 103/ul Normal 4.0-11.0 [facility] Comment on above: Performed By: #### C BC #### [facility] [address] [place] [address] Dr. Kali Haynes LIPID PROFILEon 02-24-2022 CHOL-HDL RATIO NORM SEE BELOW Normal [facility] Comment on above: Result Comment: 3.3 - 4.4 LOW RISK 4.4 - 7.1 AVERAGE RISK 7.1 - 11.0 MODERATE RISK >11.0 HIGH RISK Performed By: #### T SH, BMP, LIPID, ALT #### [facility] [address] [place] [address] [address] Kali Haynes Cholesterol [Mass/Vol] 151 mg/dL Normal <=200 [facility] Comment on above: Performed By: #### T SH, BMP, LIPID, ALT #### [facility] [address] [place] [address] [address] Kali Haynes Cholesterol in HDL [Mass/Vol] 39 mg/dL Critically low 40-60 [facility] Comment on above: Performed By: #### T SH, BMP, LIPID, ALT #### [facility] [address] [place] [address] [address] Kali Haynes Cholesterol in LDL [Mass/Vol] 85.6 mg/dL Normal [facility] Comment on above: Performed By: #### T SH, BMP, LIPID, ALT #### [facility] [address] [place] [address] [address] Kali Haynes Cholesterol.total/Choles terol in HDL [Mass ratio] 3.9 {ratio} Normal [facility] Comment on above: Performed By: #### T SH, BMP, LIPID, ALT #### [facility] [address] [place] [address] [address] Kali Haynes HDL NORMAL > or = 60 mg/dl - LOW CARDIOVASCULAR RISK <40 mg/dl - HIGH CARDIOVASCULAR RISK Normal [facility] Comment on above: Performed By: #### T SH, BMP, LIPID, ALT #### [facility] [address] [place] [address] [address] Kali Haynes LDL CALC NORMAL SEE BELOW Normal [facility] Comment on above: Result Comment: <100 mg/dl OPTIMAL 100 - 129 mg/dl NEAR OR ABOVE OPTIMAL 130 - 159 mg/dl BORDERLINE HIGH 160 - 189 mg/dl HIGH >190 mg/dl VERY HIGH Performed By: #### T SH, BMP, LIPID, ALT #### [facility] [address] [place] [address] [address] Kali Haynes Triglyceride [Mass/Vol] 132 mg/dL Normal <=150 [facility] Comment on above: Performed By: #### T SH, BMP, LIPID, ALT #### [facility] [address] [place] [address] [address] Kali Haynes VLDL CALC 26.4 mg/dL Normal [facility] Comment on above: Performed By: #### T SH, BMP, LIPID, ALT #### [facility] [address] [place] [address] [address] Kali Haynes PROF CHEM 8 (BAS METB)on Anion gap [Moles/Vol] 12.5 mmol/L Normal [facility] Comment on above: Performed By: #### T SH, BMP, LIPID, ALT #### [facility] [address] [place] [address] [address] Kali Haynes Calcium [Mass/Vol] 9.4 mg/dL Normal 8.5-10.1 [facility] Comment on above: Performed By: #### T SH, BMP, LIPID, ALT #### [facility] [address] [place] [address] Dr. Kali Haynes Chloride [Moles/Vol] 103 mmol/L Normal 98-107 [facility] Comment on above: Performed By: #### T SH, BMP, LIPID, ALT #### [facility] [address] [place] [address] [address] Kali Haynes CO2 [Moles/Vol] 26.3 mmol/L Normal 21.0-32.0 [facility] Comment on above: Performed By: #### T SH, BMP, LIPID, ALT #### [facility] [address] [place] [address] [address] Kali Haynes Creatinine [Mass/Vol] 0.82 mg/dL Normal 0.55-1.02 [facility] Comment on above: Performed By: #### T SH, BMP, LIPID, ALT #### [facility] [address] [place] [address] [address] Kali Haynes EGFR-AF GUINEAN >60 Normal >=60 [facility] Comment on above: Performed By: #### T SH, BMP, LIPID, ALT #### [facility] [address] [place] [address] [address] Kali Haynes EGFR-NON AF GUINEAN >60 Normal >=60 [facility] Comment on above: Performed By: #### T SH, BMP, LIPID, ALT #### [facility] [address] [place] [address] [address] Kali Haynes Glucose [Mass/Vol] 110 mg/dL Critically high 74-106 [facility] Comment on above: Performed By: #### T SH, BMP, LIPID, ALT #### [facility] [address] [place] [address] [address] Kali Haynes Potassium [Moles/Vol] 3.8 mmol/L Normal 3.5-5.1 [facility] Comment on above: Performed By: #### T SH, BMP, LIPID, ALT #### [facility] [address] [place] [address] Dr. Kali Haynes Sodium [Moles/Vol] 138 mmol/L Normal 136-145 [facility] Comment on above: Performed By: #### T SH, BMP, LIPID, ALT #### [facility] [address] [address] Dr. Kali Haynes Urea nitrogen [Mass/Vol] 17.0 mg/dL Normal 7.0-18.0 [facility] Comment on above: Performed By: #### T SH, BMP, LIPID, ALT #### [facility] [address] [place] [address] Dr. Kali Haynes Urea nitrogen/Creatinine [Mass ratio] 20.7 mg/mg Normal [facility] Comment on above: Performed By: #### T SH, BMP, LIPID, ALT #### [facility] [address] [address] Dr. Kali Haynes SGPTon 02-24-2022 ALT [Catalytic activity/Vol] 36 U/L Normal 14-59 [facility] Comment on above: Performed By: #### T SH, BMP, LIPID, ALT #### [facility] [address] [place] [address] Dr. Kali Haynes TSHon 02-24-2022 TSH 4.788 uIU/mL Critically high 0.358-3.[address] [facility] Comment on above: Performed By: #### T SH, BMP, LIPID, ALT #### [facility] [address] [place] [address] [address] Kali Haynes CBC AUTO DIFFon 08-21-2021 BASO # 0.0 103/ul Normal 0.0-0.1 [facility] Comment on above: Performed By: #### C BC #### [facility] [address] [place] [address] Dr. Kali Haynes Basophils/100 WBC (Bld) 0.5 % Normal 0.2-2.0 [facility] Comment on above: Performed By: #### C BC #### [facility] [address] [place] [address] Dr. Kali Haynes EO # 0.2 103/ul Normal 0.0-0.7 [facility] Comment on above: Performed By: #### C BC #### [facility] [address] [place] [address] Dr. Kali Haynes Eosinophils/100 WBC (Bld) 2.6 % Normal 0.9-7.0 [facility] Comment on above: Performed By: #### C BC #### [facility] [address] [place] [address] Dr. Kali Haynes Erythrocyte distribution width (RBC) [Ratio] 14.4 % Normal 11.0-15.0 [facility] Comment on above: Performed By: #### C BC #### [facility] [address] [place] [address] Dr. Kali Haynes Hematocrit (Bld) [Volume fraction] 40.4 % Normal 36.0-48.0 [facility] Comment on above: Performed By: #### C BC #### [facility] [address] [place] [address] Dr. Kali Haynes Hemoglobin (Bld) [Mass/Vol] 13.3 g/dL Normal 12.0-16.0 [facility] Comment on above: Performed By: #### C BC #### [facility] [address] [place] [address] Dr. Kali Haynes IG # 0.01 10e3/ul Normal 0.00-0.03 [facility] Comment on above: Performed By: #### C BC #### [facility] [address] [place] [address] Dr. Kali Haynes IG % 0.2 % Normal 0.0-0.5 [facility] Comment on above: Performed By: #### C BC #### [facility] [address] [place] [address] Dr. Kali Haynes LYMPH # 3.0 103/ul Normal 1.2-3.8 [facility] Comment on above: Performed By: #### C BC #### [facility] [address] [place] [address] Dr. Kali Haynes Lymphocytes/100 WBC (Bld) 48.6 % Normal 20.5-60.0 [facility] Comment on above: Performed By: #### C BC #### [facility] [address] [place] [address] Dr. Kali Haynes MANUAL DIFF REQ NO Normal [facility] Comment on above: Performed By: #### C BC #### [facility] [address] [place] [address] Dr. Kali Haynes MCH (RBC) [Entitic mass] 29.0 pg Normal 26.7-34.0 [facility] Comment on above: Performed By: #### C BC #### [facility] [address] [place] [address] Dr. Kali Haynes MCHC (RBC) [Mass/Vol] 32.9 g/dL Normal 29.9-35.2 [facility] Comment on above: Performed By: #### C BC #### [facility] [address] [place] [address] Dr. Kali Haynes MCV (RBC) [Entitic vol] 88.0 fL Normal 81.0-99.0 [facility] Comment on above: Performed By: #### C BC #### [facility] [address] [place] [address] Dr. Kali Haynes MONO # 0.5 103/ul Normal 0.3-0.8 [facility] Comment on above: Performed By: #### C BC #### [facility] [address] [place] [address] Dr. Kali Haynes Monocytes/100 WBC (Bld) 7.4 % Normal 1.7-12.0 [facility] Comment on above: Performed By: #### C BC #### [facility] [address] [place] [address] Dr. Kali Haynes NEUT # 2.5 103/ul Normal 1.4-6.5 [facility] Comment on above: Performed By: #### C BC #### [facility] [address] [place] [address] Dr. Kali Haynes Neutrophils/100 WBC (Bld) 40.7 % Critically low 43.0-75.0 [facility] Comment on above: Performed By: #### C BC #### [facility] [address] [place] [address] Dr. Kali Haynes Platelet mean volume (Bld) [Entitic vol] 11.3 fL Normal 9.5-13.5 [facility] Comment on above: Performed By: #### C BC #### [facility] [address] [place] [address] Dr. Kali Haynes PLT 218 103/ul Normal 150-450 [facility] Comment on above: Performed By: #### C BC #### [facility] [address] [place] [address] Dr. Kali Haynes RBC 4.59 106/ul Normal 4.20-5.40 [facility] Comment on above: Performed By: #### C BC #### [facility] [address] [place] [address] Dr. Kali Haynes WBC 6.2 103/ul Normal 4.0-11.0 [facility] Comment on above: Performed By: #### C BC #### [facility] [address] [place] [address] Dr. Kali Haynes Auth for Release of Medical Recordson 03-30-2020 Auth for Release of Medical Records [id number] #1.00CD:127 Normal [facility] Auth for Release of Medical Records [id number] #1.00CD:127 Normal [facility] Retail - Clinical Noteon Retail - Clinical Note [id number]# 1.00CD:127 Normal [facility] BASIC METABOLIC PANELon - Calcium [Mass/Vol] 9.4 mg/dL Normal 8.6-10.3 [facility] Comment on above: Order Comment: No: D o not add to previous draw Performed By: #### 0 0071, [id number], [id number] #### [facility] [address] [place] [id number], [facility] Chloride [Moles/Vol] 102 mmol/L Normal 98-107 [facility] Comment on above: Order Comment: No: D o not add to previous draw Performed By: #### 0 0071, [id number], [id number] #### [facility] [address] [place] [address], [place] CO2 [Moles/Vol] 27 mmol/L Normal 21-31 [facility] Comment on above: Order Comment: No: D o not add to previous draw Performed By: #### 0 0071, [id number], [id number] #### [facility] [address] [place] [address], [place] Creatinine [Mass/Vol] 0.63 mg/dL Normal 0.60-1.20 [facility] Comment on above: Order Comment: No: D o not add to previous draw Performed By: #### 0 0071, [id number], [id number] #### [facility] [address] [place] [address], [place] GFR/1.73 sq M predicted among blacks MDRD (S/P/Bld) [Vol rate/Area] mL/min/{1.73_m2} Normal >60 [facility] Comment on above: Order Comment: No: D o not add to previous draw Performed By: #### 0 0071, [id number], [id number] #### [facility] [address] [place] [address], [place] GFR/1.73 sq M predicted among non-blacks MDRD (S/P/Bld) [Vol rate/Area] mL/min/{1.73_m2} Normal >60 [facility] Comment on above: Order Comment: No: D o not add to previous draw Performed By: #### 0 [id number], [id number], [id number] #### [facility] [address] [place] [address], [place] Glucose [Mass/Vol] 129 mg/dL High 70-100 [facility] Comment on above: Order Comment: No: D o not add to previous draw Performed By: #### 0 0071, [id number], 23116 #### [facility] [address] [place] [address], [place] Potassium [Moles/Vol] 3.2 mmol/L Low 3.5-5.1 [facility] Comment on above: Order Comment: No: D o not add to previous draw Performed By: #### 0 0071, [id number], 93872 #### [facility] [address] [place] [address], [place] Sodium [Moles/Vol] 137 mmol/L Normal 136-145 [facility] Comment on above: Order Comment: No: D o not add to previous draw Performed By: #### 0 0071, [id number], [id number] #### [facility] [address] [place] [address], [place] Urea nitrogen [Mass/Vol] 11 mg/dL Normal 7-25 [facility] Comment on above: Order Comment: No: D o not add to previous draw Performed By: #### 0 0071, 33091, 37519 #### [facility] [address] [place] [address], [place] CBC COMPLETE BLOOD COUNTon 0 11-16-2018 Erythrocyte distribution width (RBC) [Ratio] 15.2 % High 11.5-15.0 [facility] Comment on above: Order Comment: No: D o not add to previous draw Performed By: #### 0 0071, [id number], 48645 #### [facility] [address] [place] [id number], [facility] Hematocrit (Bld) [Volume fraction] 37.7 % Normal 36.0-45.0 [facility] Comment on above: Order Comment: No: D o not add to previous draw Performed By: #### 0 0071, 15116, 39430 #### [facility] [address] [place] [address], [facility] Hemoglobin (Bld) [Mass/Vol] 12.7 g/dL Normal 12.0-15.0 [facility] Comment on above: Order Comment: No: D o not add to previous draw Performed By: #### 0 0071, 00504, 10713 #### [facility] [address] [place] [address], [place] MCH (RBC) [Entitic mass] 28.7 pg Normal 27.0-33.0 [facility] Comment on above: Order Comment: No: D o not add to previous draw Performed By: #### 0 0071, 10076, 17991 #### [facility] [address] [place] [address], [facility] MCHC (RBC) [Mass/Vol] 33.7 g/dL Normal 32.0-35.0 [facility] Comment on above: Order Comment: No: D o not add to previous draw Performed By: #### 0 0071, 58772, 77851 #### [facility] [address] [place] [address], [place] MCV (RBC) [Entitic vol] 85.1 fL Normal 82.0-98.0 [facility] Comment on above: Order Comment: No: D o not add to previous draw Performed By: #### 0 0071, 49968, 55291 #### [facility] [address] [facility] [place] [address], [facility] Nucleated RBC/100 WBC (Bld) [Ratio] 0 % Normal 0-0 [facility] Comment on above: Order Comment: No: D o not add to previous draw Performed By: #### 0 0071, 77977, 98632 #### [facility] [address] [facility] [place] [address], [facility] PLAT CNT 237 10*3/uL Normal 150-400 [facility] Comment on above: Order Comment: No: D o not add to previous draw Performed By: #### 0 0071, 47578, 30139 #### [facility] [address] [facility] [place] [address], [facility] RBC (Bld) [#/Vol] 4.43 10*6/uL Normal 3.80-5.00 [facility] Comment on above: Order Comment: No: D o not add to previous draw Performed By: #### 0 0071, 79200, 27518 #### [facility] [address] [facility] [place] [address], [facility] WBC (Bld) [#/Vol] 10.34 10*3/uL Normal 4.00-10.60 [facility] Comment on above: Order Comment: No: D o not add to previous draw Performed By: #### 0 0071, 70757, 78781 #### [facility] [address] [facility]. [address] Cardiovascular Lab Reporton 11-16-2018 Cardiovascular Lab Report [facility] Patient Name: [facility] Epi MR #: [id number] Department of Physician: Isaura Ching M.D. Division of Service Date: 11/15/2018 Cardiology Birthdate: 1950 Adult Cardiovascular Room #: 3AB [id number] Services [facility] [address] [address] Cardiovascular Laboratory Report FINAL IMPRESSIONS: 1. Mild [...] is most consistent with a type 2 yat-AU-xhmjewrvc myocardial infarction/supply-de ana mismatch. This does not represent an acute coronary syndrome and the patient does not require dual antiplatelet therapy. 2. Aggressive cardiovascular risk factor modification. 3. Optimization of medical management; given plaque disease, aspirin, dyuqwdrc-dv-qcfa intensity statin therapy, a beta mar. If [...] right internal jugular vein was obtained. A 6-Cymraes 11 cm sheath was inserted without difficulty. [...] to access the right radial artery. A 6-Cymraes Glidesheath was inserted without difficulty. Bilateral selective [...] Camilo M.D. Date Trans: 11/16/2018 09:01 Tressa/alisa [id number] Normal [facility] LIVER BATTERYon 11-16-2018 Albumin [Mass/Vol] 3.6 g/dL Normal 3.5-5.7 [facility] Comment on above: Order Comment: No: D o not add to previous draw Performed By: #### 0 0071, 06426, 37519 #### [facility] [address] [place] [address], [place] ALKALINE PHOSPH 54 IU/L Normal 34-104 [facility] Comment on above: Order Comment: No: D o not add to previous draw Performed By: #### 0 0071, 80397, 12422 #### [facility] [address] [place] [address], [place] ALT [Catalytic activity/Vol] 63 U/L High 7-52 [facility] Comment on above: Order Comment: No: D o not add to previous draw Performed By: #### 0 0071, 19008, 80937 #### [facility] [address] [place] [address], [place] AST [Catalytic activity/Vol] 19 U/L Normal 13-39 [facility] Comment on above: Order Comment: No: D o not add to previous draw Performed By: #### 0 0071, 23853, 12813 #### [facility] [address] [place] [address], [place] Bilirubin [Mass/Vol] 0.5 mg/dL Normal 0.3-1.0 [facility] Comment on above: Order Comment: No: D o not add to previous draw Performed By: #### 0 0071, 32031, 59347 #### [facility] [address] [place] [address], [place] Bilirubin.direct [Mass/Vol] 0.1 mg/dL Normal 0.0-0.2 [facility] Comment on above: Order Comment: No: D o not add to previous draw Performed By: #### 0 0071, 91217, 57065 #### [facility] [address] [place] [address], [place] Protein [Mass/Vol] 6.5 g/dL Normal 6.0-8.3 [facility] Comment on above: Order Comment: No: D o not add to previous draw Performed By: #### 0 0071, 44689, 88985 #### [facility] [address] [place] [address], [place] MAGNESIUM BLOODon 11-16-2018 Magnesium [Mass/Vol] 1.8 mg/dL Low 1.9-2.7 [facility] Comment on above: Order Comment: No: D o not add to previous draw Performed By: #### 0 0071, 91390, 60162 #### [facility] [address] [place] [address], [place] PHOSPHORUS BLOODon 9 Phosphate [Mass/Vol] 3.1 mg/dL Normal 2.5-5.0 [facility] Comment on above: Order Comment: No: D o not add to previous draw Performed By: #### 0 0071, 77774, 40168 #### [facility] [address] [place] [address], [place] BASIC METABOLIC PANELon 10-22 Calcium [Mass/Vol] 9.0 mg/dL Normal 8.6-10.3 [facility] Comment on above: Order Comment: No: D o not add to previous draw Performed By: #### 0 0071, 96491, 06298 #### [facility] [address] [place] [address], [place] Chloride [Moles/Vol] 103 mmol/L Normal 98-107 [facility] Comment on above: Order Comment: No: D o not add to previous draw Performed By: #### 0 0071, 34085, 32503 #### [facility] [address] [place] [address], [place] CO2 [Moles/Vol] 25 mmol/L Normal 21-31 [facility] Comment on above: Order Comment: No: D o not add to previous draw Performed By: #### 0 0071, 61103, 70893 #### [facility] [address] [place] [address], [place] Creatinine [Mass/Vol] 0.65 mg/dL Normal 0.60-1.20 [facility] Comment on above: Order Comment: No: D o not add to previous draw Performed By: #### 0 0071, 31207, 11503 #### [facility] [address] [place] [address], [place] GFR/1.73 sq M predicted among blacks MDRD (S/P/Bld) [Vol rate/Area] mL/min/{1.73_m2} Normal >60 [facility] Comment on above: Order Comment: No: D o not add to previous draw Performed By: #### 0 0071, 64735, 77414 #### [facility] [address] [place] [address], [place] GFR/1.73 sq M predicted among non-blacks MDRD (S/P/Bld) [Vol rate/Area] mL/min/{1.73_m2} Normal >60 [facility] Comment on above: Order Comment: No: D o not add to previous draw Performed By: #### 0 0071, 40709, 21731 #### [facility] [address] [place] [address], [place] Glucose [Mass/Vol] 192 mg/dL High 70-100 [facility] Comment on above: Order Comment: No: D o not add to previous draw Performed By: #### 0 0071, 63535, 59385 #### [facility] [address] [place] [address], [place] Potassium [Moles/Vol] 3.0 mmol/L Low 3.5-5.1 [facility] Comment on above: Order Comment: No: D o not add to previous draw Performed By: #### 0 0071, 93167, 14491 #### [facility] [address] [place] [address], [place] Sodium [Moles/Vol] 138 mmol/L Normal 136-145 [facility] Comment on above: Order Comment: No: D o not add to previous draw Performed By: #### 0 0071, 63070, 12321 #### [facility] [address] [place] [address], [place] Urea nitrogen [Mass/Vol] 10 mg/dL Normal 7-25 [facility] Comment on above: Order Comment: No: D o not add to previous draw Performed By: #### 0 0071, 36609, 67773 #### [facility] [address] [place] [address], [place] LIVER BATTERYon 11-15-2018 Albumin [Mass/Vol] 3.3 g/dL Low 3.5-5.7 [facility] Comment on above: Order Comment: No: D o not add to previous draw Performed By: #### 0 0071, 54850, 61335 #### [facility] [address] [place] [address], [place] ALKALINE PHOSPH 51 IU/L Normal 34-104 [facility] Comment on above: Order Comment: No: D o not add to previous draw Performed By: #### 0 0071, 69577, 67196 #### [facility] [address] [place] [address], [place] ALT [Catalytic activity/Vol] 70 U/L High 7-52 [facility] Comment on above: Order Comment: No: D o not add to previous draw Performed By: #### 0 0071, 47699, 81456 #### [facility] [address] [place] [address], [place] AST [Catalytic activity/Vol] 22 U/L Normal 13-39 [facility] Comment on above: Order Comment: No: D o not add to previous draw Performed By: #### 0 0071, 03486, 74414 #### [facility] [address] [place] [address], [place] Bilirubin [Mass/Vol] 0.4 mg/dL Normal 0.3-1.0 [facility] Comment on above: Order Comment: No: D o not add to previous draw Performed By: #### 0 0071, 90109, 54242 #### [facility] [address] Bilirubin.direct [Mass/Vol] 0.1 mg/dL Normal 0.0-0.2 [facility] Comment on above: Order Comment: No: D o not add to previous draw Performed By: #### 0 0071, 27302, 71987 #### [facility] [address] Protein [Mass/Vol] 6.2 g/dL Normal 6.0-8.3 [facility] Comment on above: Order Comment: No: D o not add to previous draw Performed By: #### 0 0071, 85558, 17467 #### [facility] [address] [facility]. [address] UFH HEPARIN ASSAYon 11-16-19 19 UNFRACTIONATED HEPARIN 0.71 IU/mL High 0.30-0.70 [facility] Comment on above: Result Comment: Arnot roxaban and Apixaban will interfere with the anti Xa assay used to monitor UFH and LMWH. Performed By: #### 3 0965 #### [facility] [address] [facility]. [address] BASIC METABOLIC PANELon 10-22 Calcium [Mass/Vol] 8.9 mg/dL Normal 8.6-10.3 [facility] Comment on above: Order Comment: No: D o not add to previous draw Criteria for reflexing a culture was not met. Please call the lab at [phone] within 24 hours of collection time if culture is needed Performed By: #### 3 0965 #### [facility] [address] [facility] [place] [place] [address], [facility] Chloride [Moles/Vol] 105 mmol/L Normal 98-107 [facility] Comment on above: Order Comment: No: D o not add to previous draw Criteria for reflexing a culture was not met. Please call the lab at [phone] within 24 hours of collection time if culture is needed Performed By: #### 3 0965 #### [facility] [address] [place] [address], [facility] CO2 [Moles/Vol] 25 mmol/L Normal 21-31 [facility] Comment on above: Order Comment: No: D o not add to previous draw Criteria for reflexing a culture was not met. Please call the lab at [phone] within 24 hours of collection time if culture is needed Performed By: #### 3 0965 #### [facility] [address] [place] [address], [facility] Creatinine [Mass/Vol] 0.64 mg/dL Normal 0.60-1.20 [facility] Comment on above: Order Comment: No: D o not add to previous draw Criteria for reflexing a culture was not met. Please call the lab at [phone] within 24 hours of collection time if culture is needed Performed By: #### 3 0965 #### [facility] [address] [place] [address], [facility] GFR/1.73 sq M predicted among blacks MDRD (S/P/Bld) [Vol rate/Area] mL/min/{1.73_m2} Normal >60 [facility] Comment on above: Order Comment: No: D o not add to previous draw Criteria for reflexing a culture was not met. Please call the lab at [phone] within 24 hours of collection time if culture is needed Performed By: #### 3 0965 #### [facility] [address] [place] [address], [facility] GFR/1.73 sq M predicted among non-blacks MDRD (S/P/Bld) [Vol rate/Area] mL/min/{1.73_m2} Normal >60 [facility] Comment on above: Order Comment: No: D o not add to previous draw Criteria for reflexing a culture was not met. Please call the lab at [phone] within 24 hours of collection time if culture is needed Performed By: #### 3 0965 #### [facility] [address] [facility] [place] [place] [address], [facility] Glucose [Mass/Vol] 129 mg/dL High 70-100 [facility] Comment on above: Order Comment: No: D o not add to previous draw Criteria for reflexing a culture was not met. Please call the lab at [phone] within 24 hours of collection time if culture is needed Performed By: #### 3 0965 #### [facility] [address] [place] [address], [facility] Potassium [Moles/Vol] 3.6 mmol/L Normal 3.5-5.1 [facility] Comment on above: Order Comment: No: D o not add to previous draw Criteria for reflexing a culture was not met. Please call the lab at [phone] within 24 hours of collection time if culture is needed Performed By: #### 3 0965 #### [facility] [address] Sodium [Moles/Vol] 137 mmol/L Normal 136-145 [facility] Comment on above: Order Comment: No: D o not add to previous draw Criteria for reflexing a culture was not met. Please call the lab at [phone] within 24 hours of collection time if culture is needed Performed By: #### 3 0965 #### [facility] [address] Urea nitrogen [Mass/Vol] 11 mg/dL Normal 7-25 [facility] Comment on above: Order Comment: No: D o not add to previous draw Criteria for reflexing a culture was not met. Please call the lab at [phone] within 24 hours of collection time if culture is needed Performed By: #### 3 0965 #### [facility] [address] [place] [address], [facility] CBC W/DIFFon 11-14-2018 ABS BASOPHILS 0.0 10*3/uL Normal 0.0-0.2 [facility] Comment on above: Order Comment: No: D o not add to previous draw Criteria for reflexing a culture was not met. Please call the lab at [phone] within 24 hours of collection time if culture is needed Performed By: #### 3 0965 #### [facility] [address] [place] [address], [facility] ABS IMM GRANS 0.0 10*3/uL Normal 0.0-0.2 [facility] Comment on above: Order Comment: No: D o not add to previous draw Criteria for reflexing a culture was not met. Please call the lab at [phone] within 24 hours of collection time if culture is needed Performed By: #### 3 0965 #### [facility] [address] [place] [address], [facility] ABS NEUTROPHILS 5.0 10*3/uL Normal 1.6-7.6 [facility] Comment on above: Order Comment: No: D o not add to previous draw Criteria for reflexing a culture was not met. Please call the lab at [phone] within 24 hours of collection time if culture is needed Performed By: #### 3 0965 #### [facility] [address] [place] [address], [facility] Basophils/100 WBC (Bld) 0.1 % Normal 0.0-1.0 T j[facility] Comment on above: Order Comment: No: D o not add to previous draw Criteria for reflexing a culture was not met. Please call the lab at [phone] within 24 hours of collection time if culture is needed Performed By: #### 3 0965 #### [facility] [address] [place] [address], [facility] Eosinophils (Bld) [#/Vol] 0.2 10*3/uL Normal 0.0-0.5 [facility] Comment on above: Order Comment: No: D o not add to previous draw Criteria for reflexing a culture was not met. Please call the lab at [phone] within 24 hours of collection time if culture is needed Performed By: #### 3 0965 #### [facility] [address] [place] [address], [facility] Eosinophils/100 WBC (Bld) 1.8 % Normal 0.0-6.0 [facility] Comment on above: Order Comment: No: D o not add to previous draw Criteria for reflexing a culture was not met. Please call the lab at [phone] within 24 hours of collection time if culture is needed Performed By: #### 3 0965 #### [facility] [address] Erythrocyte distribution width (RBC) [Ratio] 15.9 % High 11.5-15.0 [facility] Comment on above: Order Comment: No: D o not add to previous draw Criteria for reflexing a culture was not met. Please call the lab at [phone] within 24 hours of collection time if culture is needed Performed By: #### 3 0965 #### [facility] [address] Hematocrit (Bld) [Volume fraction] 36.8 % Normal 36.0-45.0 [facility] Comment on above: Order Comment: No: D o not add to previous draw Criteria for reflexing a culture was not met. Please call the lab at [phone] within 24 hours of collection time if culture is needed Performed By: #### 3 0965 #### [facility] [address] Hemoglobin (Bld) [Mass/Vol] 12.1 g/dL Normal 12.0-15.0 [facility] Comment on above: Order Comment: No: D o not add to previous draw Criteria for reflexing a culture was not met. Please call the lab at [phone] within 24 hours of collection time if culture is needed Performed By: #### 3 0965 #### [facility] [address] [place] [address], [facility] IMMATURE GRANS 0.4 % Normal 0.0-1.0 [facility] Comment on above: Order Comment: No: D o not add to previous draw Criteria for reflexing a culture was not met. Please call the lab at [phone] within 24 hours of collection time if culture is needed Performed By: #### 3 0965 #### [facility] [address] [id number], [facility] Lymphocytes (Bld) [#/Vol] 4.7 10*3/uL High 1.2-4.0 [facility] Comment on above: Order Comment: No: D o not add to previous draw Criteria for reflexing a culture was not met. Please call the lab at [phone] within 24 hours of collection time if culture is needed Performed By: #### 3 0965 #### [facility] [address] [place] [address], [facility] Lymphocytes/100 WBC (Bld) 45.2 % High 20.0-45.0 [facility] Comment on above: Order Comment: No: D o not add to previous draw Criteria for reflexing a culture was not met. Please call the lab at [phone] within 24 hours of collection time if culture is needed Performed By: #### 3 0965 #### [facility] [address] [place] [address], [facility] MCH (RBC) [Entitic mass] 28.7 pg Normal 27.0-33.0 [facility] Comment on above: Order Comment: No: D o not add to previous draw Criteria for reflexing a culture was not met. Please call the lab at [phone] within 24 hours of collection time if culture is needed Performed By: #### 3 0965 #### [facility] [address] [place] [address], [facility] MCHC (RBC) [Mass/Vol] 32.9 g/dL Normal 32.0-35.0 [facility] Comment on above: Order Comment: No: D o not add to previous draw Criteria for reflexing a culture was not met. Please call the lab at [phone] within 24 hours of collection time if culture is needed Performed By: #### 3 0965 #### [facility] [address] [id number], [facility] MCV (RBC) [Entitic vol] 87.2 fL Normal 82.0-98.0 Cherie garcia [facility] Comment on above: Order Comment: No: D o not add to previous draw Criteria for reflexing a culture was not met. Please call the lab at [phone] within 24 hours of collection time if culture is needed Performed By: #### 3 0965 #### [facility] [address] [place] [address], [facility] Monocytes (Bld) [#/Vol] 0.5 10*3/uL Normal 0.1-1.0 [facility] Comment on above: Order Comment: No: D o not add to previous draw Criteria for reflexing a culture was not met. Please call the lab at [phone] within 24 hours of collection time if culture is needed Performed By: #### 3 0965 #### [facility] [address] [facility] [place] [place] [address], [facility] MONOS 4.5 % Low 5.0-12.0 [facility] Comment on above: Order Comment: No: D o not add to previous draw Criteria for reflexing a culture was not met. Please call the lab at [phone] within 24 hours of collection time if culture is needed Performed By: #### 3 0965 #### [facility] [address] [facility] [place] [place] [address], [facility] Neutrophils/100 WBC (Bld) 48.0 % Normal 40.0-72.0 [facility] Comment on above: Order Comment: No: D o not add to previous draw Criteria for reflexing a culture was not met. Please call the lab at [phone] within 24 hours of collection time if culture is needed Performed By: #### 3 0965 #### [facility] [address] [place] [id number], [facility] Nucleated RBC/100 WBC (Bld) [Ratio] 0 % Normal 0-0 [facility] Comment on above: Order Comment: No: D o not add to previous draw Criteria for reflexing a culture was not met. Please call the lab at [phone] within 24 hours of collection time if culture is needed Performed By: #### 3 0965 #### [facility] [address] PLAT CNT 193 10*3/uL Normal 150-400 [facility] Comment on above: Order Comment: No: D o not add to previous draw Criteria for reflexing a culture was not met. Please call the lab at [phone] within 24 hours of collection time if culture is needed Performed By: #### 3 0965 #### [address] RBC (Bld) [#/Vol] 4.22 10*6/uL Normal 3.80-5.00 [facility] Comment on above: Order Comment: No: D o not add to previous draw Criteria for reflexing a culture was not met. Please call the lab at [phone] within 24 hours of collection time if culture is needed Performed By: #### 3 0965 #### [address] WBC (Bld) [#/Vol] 10.38 10*3/uL Normal 4.00-10.60 [facility] Comment on above: Order Comment: No: D o not add to previous draw Criteria for reflexing a culture was not met. Please call the lab at [phone] within 24 hours of collection time if culture is needed Performed By: #### 3 0965 #### [address] CHEST AND LATERALon 11-15-19 CHEST AND LATERAL [facility] Department of Radiology [address] [place] [phone] Patient Name: EPI DAILEY : 1950 Sex: F Age: Race: White Pt. Location: [id number] Patient Status: I Ordered Date: 11/14/2018 8:00:00 AM Completed Date: 11/14/2018 12:39 PM Requesting Provider: ROBIN LEBLANC Attending Provider: NIR CENTENO Report Copy To: Signs & Symptoms: Shortness of Breath History: See Comments Comments: R/O Pulmonary Edema Exam: CHEST AND LATERAL CHEST AND LATERAL 11/14/2018 12:39 PM EDT [...] findings. Electronically signed by:Jamey Hamilton. Transcribed by: [email or web address], User Resident: GAGAN GREENE Electronically Signed by: JAMEY HAMILTON @ 11/15/2018 09:14 AM I personally read this/these film(s) with this resident Normal [facility] Comment on above: Order Comment: No: D o not add to previous draw Criteria for reflexing a culture was not met. Please call the lab at [phone] within 24 hours of collection time if culture is needed LIPID PROFILEon 11-14-2018 Cholesterol [Mass/Vol] 113 mg/dL Low 120-200 [facility] Comment on above: Order Comment: No: [...] Risk Performed By: #### 3 0965 #### [facility] [address] [place] [address], [facility] Cholesterol in HDL [Mass/Vol] 29 mg/dL Normal 23-92 [facility] Comment on above: Order Comment: No: [...] Risk Performed By: #### 3 0965 #### [facility] [address] [facility] [place] [address], [facility] Cholesterol in LDL [Mass/Vol] 61 mg/dL Normal 0-130 [facility] Comment on above: Order Comment: No: D o not add to previous draw Criteria for reflexing a culture was not met. Please call the lab at [phone] within 24 hours of collection time if culture is needed Result Comment: LDL IS A CALCULATION LDL IS ONLY VALID IF THE TRIG IS LESS THAN 400. Performed By: #### 3 0965 #### [facility] [address] [place] [address], [facility] Cholesterol.total/Choles terol in HDL [Mass ratio] 3.9 {ratio} Normal 0.0-4.5 [facility] Comment on above: Order Comment: No: D o not add to previous draw Criteria for reflexing a culture was not met. Please call the lab at [phone] within 24 hours of collection time if culture is needed Performed By: #### 3 0965 #### [facility] [address] [place] [address], [facility] NON-HDL CHOLESTEROL 84 mg/dL Normal [facility] Comment on above: Order Comment: No: D o not add to previous draw Criteria for reflexing a culture was not met. Please call the lab at [phone] within 24 hours of collection time if culture is needed Performed By: #### 3 0965 #### [address] Triglyceride [Mass/Vol] 113 mg/dL Normal 40-149 [facility] Comment on above: Order Comment: No: [...] RISK Performed By: #### 3 0965 #### [address] VLDL CHOL 23 mg/dL Normal 0-40 [facility] Comment on above: Order Comment: No: D o not add to previous draw Criteria for reflexing a culture was not met. Please call the lab at [phone] within 24 hours of collection time if culture is needed Performed By: #### 3 0965 #### [address] MAGNESIUM BLOODon 11-14-2018 Magnesium [Mass/Vol] 2.0 mg/dL Normal 1.9-2.7 [facility] Comment on above: Order Comment: No: D o not add to previous draw Criteria for reflexing a culture was not met. Please call the lab at [phone] within 24 hours of collection time if culture is needed Performed By: #### 3 0965 #### [address] MRI LUMBAR SPINE W WO CONTRA STon 11-14-2018 MRI LUMBAR SPINE W WO CONTRAST [facility] Department of Radiology [address] [place] [phone] Patient Name: EPI DAILEY : 1950 Sex: F Age: Race: White Pt. Location: [id number] Patient Status: I Ordered Date: 11/13/2018 7:45:00 PM Completed Date: 11/14/2018 12:26 PM Requesting Provider: ROBIN LEBLANC Attending Provider: NIR CENTENO Report Copy To: Signs & Symptoms: Weakness in Extremity (specify) History: See Comments Comments: R/O Herniated Disc (Ruptured), left lower extremitty Exam: MRI LUMBAR SPINE W WO CONTRAST MRI LUMBAR SPINE W WO CONTRAST 11/14/2018 [...] spine. Electronically signed by:Kunal Bloom. Transcribed by: [email or web address], User Resident: Electronically Signed by: KUNAL BLOOM @ 11/15/2018 02:54 PM Normal [facility] Comment on above: Order Comment: No: D o not add to previous draw PROTHROMBIN TIMEon 9 INR Coag (PPP) [Relative time] 1.04 {INR} Normal 0.91-1.16 [facility] Comment on above: Order Comment: No: D o not add to previous draw Criteria for reflexing a culture was not met. Please call the lab at [phone] within 24 hours of collection time if culture is needed Result Comment: ACCC P RECOMMENDED INR FOR WARFARIN THERAPY ------- CONDITION INR PROPHYLAXIS OF VENOUS THROMBOSIS 2-3 (HIGH-RISK SURGERY) TREATMENT OF VENOUS THROMBOSIS 2-3 TREATMENT OF PULMONARY EMBOLISM 2-3 PREVENTION OF SYSTEMIC EMBOLISM: 2-3 ACUTE MYOCARDIAL INFARCTION TISSUE HEART VALVES VALVULAR HEART DISEASE ATRIAL FIBRILLATION RECURRENT SYSTEMIC EMBOLISM MECHANICAL HEART VALVE 2.5-3.5 FROM: ORAL ANTICOAGULANTS. MECHANISM OF ACTION, CLINICAL EFFECTIVENESS, AND OPTIMAL THERAPEUTIC RANGE. CHEST 1995;108:231S-246S. Performed By: #### 3 0965 #### [facility] [address] PT Coag (PPP) [Time] 13.6 s Normal 12.3-14.8 [facility] Comment on above: Order Comment: No: [...] SAMPLING. Performed By: #### 3 0965 #### [facility] [address] TROPONIN-Ion 11-14-2018 Troponin I.cardiac [Mass/Vol] 1.03 ng/mL Critically high 0.00-0.04 [facility] Comment on above: Order Comment: No: D o not add to previous draw Result Comment: M-TN EVIOUS CRITICAL RESULT REFERENCE RANGES: 0.00 - 0.04 ng/ml NORMAL 0.05 - 0.50 ng/ml INDETERMINATE > 0.50 ng/ml CONSISTENT WITH AN M.I. Performed By: #### 3 5200 #### [facility] [address] UFH HEPARIN ASSAYon 11-15-19 19 UNFRACTIONATED HEPARIN 0.21 IU/mL Low 0.30-0.70 [facility] Comment on above: Result Comment: Arnot roxaban and Apixaban will interfere with the anti Xa assay used to monitor UFH and LMWH. Performed By: #### 3 0965 #### [facility] [address] UNFRACTIONATED HEPARIN 0.26 IU/mL Low 0.30-0.70 [facility] Comment on above: Result Comment: Dora roxaban and Apixaban will interfere with the anti Xa assay used to monitor UFH and LMWH. Performed By: #### 3 0965 #### [facility] [address] [place] [id number], [facility] UNFRACTIONATED HEPARIN 0.21 IU/mL Low 0.30-0.70 [facility] Comment on above: Result Comment: Dora roxaban and Apixaban will interfere with the anti Xa assay used to monitor UFH and LMWH. Performed By: #### 3 0965 #### [facility] [address] [place] [address], [facility] UNFRACTIONATED HEPARIN <0.10 Critically low 0.30-0.70 [facility] Comment on above: Result Comment: Dora roxaban and Apixaban will interfere with the anti Xa assay used to monitor UFH and LMWH. RESULTS CHECKED AND CALLED. ACCURATELY READ BACK BY WILIAM DOMINGO RN @0058 Performed By: #### 3 0477 #### [facility] [address] [place] [id number], [facility] BASIC METABOLIC PANELon 08-2 Calcium [Mass/Vol] 9.2 mg/dL Normal 8.6-10.3 [facility] Comment on above: Order Comment: No: D o not add to previous draw Performed By: #### 0 0071, 38830, 36687 #### [facility] [address] [place] [address], [facility] Chloride [Moles/Vol] 103 mmol/L Normal 98-107 [facility] Comment on above: Order Comment: No: D o not add to previous draw Performed By: #### 0 0071, 56623, 61131 #### [facility] [address] [place] [address], [place] CO2 [Moles/Vol] 22 mmol/L Normal 21-31 [facility] Comment on above: Order Comment: No: D o not add to previous draw Performed By: #### 0 0071, 24872, 58600 #### [facility] [address] [place] [address], [place] Creatinine [Mass/Vol] 0.74 mg/dL Normal 0.60-1.20 [facility] Comment on above: Order Comment: No: D o not add to previous draw Performed By: #### 0 0071, 25946, 10769 #### [facility] [address] [place] [address], [place] GFR/1.73 sq M predicted among blacks MDRD (S/P/Bld) [Vol rate/Area] mL/min/{1.73_m2} Normal >60 [facility] Comment on above: Order Comment: No: D o not add to previous draw Performed By: #### 0 0071, 58814, 73601 #### [facility] [address] [place] [address], [place] GFR/1.73 sq M predicted among non-blacks MDRD (S/P/Bld) [Vol rate/Area] mL/min/{1.73_m2} Normal >60 [facility] Comment on above: Order Comment: No: D o not add to previous draw Performed By: #### 0 0071, 01993, 59879 #### [facility] [address] [place] [address], [place] Glucose [Mass/Vol] 116 mg/dL High 70-100 [facility] Comment on above: Order Comment: No: D o not add to previous draw Performed By: #### 0 0071, 91618, 75422 #### [facility] [address] [place] [address], [place] Potassium [Moles/Vol] 3.5 mmol/L Normal 3.5-5.1 [facility] Comment on above: Order Comment: No: D o not add to previous draw Performed By: #### 0 0071, 18575, 08080 #### [facility] [address] [place] [address], [place] Sodium [Moles/Vol] 137 mmol/L Normal 136-145 [facility] Comment on above: Order Comment: No: D o not add to previous draw Performed By: #### 0 0071, 27137, 24528 #### [facility] [address] Urea nitrogen [Mass/Vol] 14 mg/dL Normal 7-25 [facility] Comment on above: Order Comment: No: D o not add to previous draw Performed By: #### 0 0071, 43492, 80890 #### [facility] [address] BNP (B-TYPE NATRIURETIC PEPT NICK)on 11-13-2018 Natriuretic peptide B (Bld) [Mass/Vol] 695 pg/mL High 0-100 [facility] Comment on above: Order Comment: Yes: Add to Previous draw if able Result Comment: Give n the appropriate clinical setting a BNP result of >100 pg/mL indicates congestive heart failure. Performed By: #### 8 5123, 61177 #### [facility] [address] CBC W/DIFFon 11-13-2018 ABS BASOPHILS 0.0 10*3/uL Normal 0.0-0.2 [facility] Comment on above: Performed By: #### 5 0103 #### [facility] [address] ABS IMM GRANS 0.1 10*3/uL Normal 0.0-0.2 [facility] Comment on above: Performed By: #### 5 0103 #### [facility] [address] ABS NEUTROPHILS 9.9 10*3/uL High 1.6-7.6 [facility] Comment on above: Performed By: #### 5 0103 #### [facility] [address] Basophils/100 WBC (Bld) 0.1 % Normal 0.0-1.0 [facility] Comment on above: Performed By: #### 5 0103 #### [facility] [address] [facility] [address] Eosinophils (Bld) [#/Vol] 0.0 10*3/uL Normal 0.0-0.5 [facility] Comment on above: Performed By: #### 3 #### [facility] [address] [facility] [place] [address], [facility] Eosinophils/100 WBC (Bld) 0.2 % Normal 0.0-6.0 [facility] Comment on above: Performed By: #### 3 #### [facility] [address] Erythrocyte distribution width (RBC) [Ratio] 15.9 % High 11.5-15.0 [facility] Comment on above: Performed By: #### 3 #### [facility] [address] Hematocrit (Bld) [Volume fraction] 36.8 % Normal 36.0-45.0 [facility] Comment on above: Performed By: #### 102 #### [facility] [address] Hemoglobin (Bld) [Mass/Vol] 12.4 g/dL Normal 12.0-15.0 [facility] Comment on above: Performed By: #### 5 3 #### [facility] [address] IMMATURE GRANS 0.6 % Normal 0.0-1.0 [facility] Comment on above: Performed By: #### 102 #### [facility] [address] [place] [address], [facility] Lymphocytes (Bld) [#/Vol] 5.0 10*3/uL High 1.2-4.0 [facility] Comment on above: Performed By: #### 3 #### [facility] [address] [facility] [place] [address], [facility] Lymphocytes/100 WBC (Bld) 32.2 % Normal 20.0-45.0 [facility] Comment on above: Performed By: #### 5 3 #### [facility] [address] [facility] [place] [address], [facility] MCH (RBC) [Entitic mass] 28.8 pg Normal 27.0-33.0 [facility] Comment on above: Performed By: #### 5 3 #### [facility] [address] [facility] [place] [place] [address], [facility] MCHC (RBC) [Mass/Vol] 33.7 g/dL Normal 32.0-35.0 [facility] Comment on above: Performed By: #### 5 3 #### [facility] [address] [facility] [place] [address], [facility] MCV (RBC) [Entitic vol] 85.6 fL Normal 82.0-98.0 T [facility] Comment on above: Performed By: #### 5 3 #### [facility] [address] [facility] [place] [place] [address], [facility] Monocytes (Bld) [#/Vol] 0.5 10*3/uL Normal 0.1-1.0 [facility] Comment on above: Performed By: #### 5 3 #### [facility] [address] [place] [address], [facility] MONOS 3.3 % Low 5.0-12.0 [facility] Comment on above: Performed By: #### 5 3 #### [facility] [address] [facility] [place] [place] [address], [facility] Neutrophils/100 WBC (Bld) 63.6 % Normal 40.0-72.0 [facility] Comment on above: Performed By: #### 5 3 #### [facility] [address] [place] [address], [facility] Nucleated RBC/100 WBC (Bld) [Ratio] 0 % Normal 0-0 [facility] Comment on above: Performed By: #### 5 0103 #### [facility] [address] [place] [address], [place] PLAT CNT 213 10*3/uL Normal 150-400 [facility] Comment on above: Performed By: #### 5 0103 #### [facility] [address] [place] [address], [facility] RBC (Bld) [#/Vol] 4.30 10*6/uL Normal 3.80-5.00 [facility] Comment on above: Performed By: #### 5 0103 #### [facility] [address] [place] [address], [facility] WBC (Bld) [#/Vol] 15.51 10*3/uL High 4.00-10.60 [facility] Comment on above: Performed By: #### 5 0103 #### [facility] [address] [place] [address], [facility] HEMOGLOBIN A1Con 11-13-2018 HbA1c (Bld) [Mass fraction] 117 mg/dL Normal 70-126 [facility] Comment on above: Order Comment: Yes: Add to Previous draw if able Performed By: #### 8 5123, 69577 #### [facility] [address] [place] [address], [facility] HbA1c (Bld) [Mass fraction] 5.7 % Normal 4.0-6.0 [facility] Comment on above: Order Comment: Yes: Add to Previous draw if able Performed By: #### 8 5223, 93621 #### [facility] [address] [place] [address], [place] LIVER BATTERYon 11-13-2018 Albumin [Mass/Vol] 3.7 g/dL Normal 3.5-5.7 [facility] Comment on above: Order Comment: No: D o not add to previous draw Performed By: #### 0 0071, 74717, 67152 #### [facility] [address] [place] [address], [place] ALKALINE PHOSPH 61 IU/L Normal 34-104 [facility] Comment on above: Order Comment: No: D o not add to previous draw Performed By: #### 0 0071, 53607, 24971 #### [facility] [address] [place] [address], [place] ALT [Catalytic activity/Vol] 156 U/L High 7-52 [facility] Comment on above: Order Comment: No: D o not add to previous draw Performed By: #### 0 0071, 87979, 95075 #### [facility] [address] [place] [address], [place] AST [Catalytic activity/Vol] 62 U/L High 13-39 [facility] Comment on above: Order Comment: No: D o not add to previous draw Performed By: #### 0 0071, 01625, 56927 #### [facility] [address] [place] [address], [place] Bilirubin [Mass/Vol] 0.5 mg/dL Normal 0.3-1.0 [facility] Comment on above: Order Comment: No: D o not add to previous draw Performed By: #### 0 0071, 46271, 23485 #### [facility] [address] [place] [address], [place] Bilirubin.direct [Mass/Vol] 0.1 mg/dL Normal 0.0-0.2 [facility] Comment on above: Order Comment: No: D o not add to previous draw Performed By: #### 0 0071, 22873, 49177 #### [facility] [address] [place] [address], [place] Protein [Mass/Vol] 6.8 g/dL Normal 6.0-8.3 [facility] Comment on above: Order Comment: No: D o not add to previous draw Performed By: #### 0 0071, 10998, 48469 #### [facility] [address] [place] [address], [facility] TROPONIN-Ion 11-13-2018 Troponin I.cardiac [Mass/Vol] 1.42 ng/mL Critically high 0.00-0.04 [facility] Comment on above: Order Comment: No: D o not add to previous draw Result Comment: M-TN EVIOUS CRITICAL RESULT REFERENCE RANGES: 0.00 - 0.04 ng/ml NORMAL 0.05 - 0.50 ng/ml INDETERMINATE > 0.50 ng/ml CONSISTENT WITH AN M.I. Performed By: #### 3 5200 #### [facility] [address] [facility] [place] [address], [facility] Troponin I.cardiac [Mass/Vol] 1.12 ng/mL Critically high 0.00-0.04 [facility] Comment on above: Order Comment: No: D o not add to previous draw Result Comment: M-CR ITICAL RESULT(S) REVIEWED, CALLED TO AND READ BACK BY MONICA HERNANDEZ RN @ 2000 ON 11-13-18 REFERENCE RANGES: 0.00 - 0.04 ng/ml NORMAL 0.05 - 0.50 ng/ml INDETERMINATE > 0.50 ng/ml CONSISTENT WITH AN M.I. Performed By: #### 0 0071, 70887, 93353 #### [facility] [address] [place] [address], [facility] URINALYSIS REFLEXon 11-14-19 19 Appearance (U) CLEAR Normal CLEAR [facility] Comment on above: Order Comment: No: D o not add to previous draw Criteria for reflexing a culture was not met. Please call the lab at [phone] within 24 hours of collection time if culture is needed Performed By: #### 3 5711 #### [facility] [address] [place] [address], [facility] Bilirubin [Mass/Vol] Negative Normal NEGATIVE [facility] Comment on above: Order Comment: No: D o not add to previous draw Criteria for reflexing a culture was not met. Please call the lab at [phone] within 24 hours of collection time if culture is needed Performed By: #### 3 0965 #### [facility] [address] [place] [address], [place] BLOOD Negative Normal NEGATIVE [facility] Comment on above: Order Comment: No: D o not add to previous draw Criteria for reflexing a culture was not met. Please call the lab at [phone] within 24 hours of collection time if culture is needed Performed By: #### 3 0965 #### [facility] [address] [place] [address], [place] Color (U) YELLOW Abnormal YELLOW [facility] Comment on above: Order Comment: No: D o not add to previous draw Criteria for reflexing a culture was not met. Please call the lab at [phone] within 24 hours of collection time if culture is needed Performed By: #### 3 0965 #### [facility] [address] [place] [address], [place] Glucose [Mass/Vol] Negative Normal NEGATIVE [facility] Comment on above: Order Comment: No: D o not add to previous draw Criteria for reflexing a culture was not met. Please call the lab at [phone] within 24 hours of collection time if culture is needed Performed By: #### 3 0965 #### [facility] [address] [place] [address], [place] KETONE Negative Normal NEGATIVE [facility] Comment on above: Order Comment: No: D o not add to previous draw Criteria for reflexing a culture was not met. Please call the lab at [phone] within 24 hours of collection time if culture is needed Performed By: #### 3 0965 #### [facility] [address] [place] [address], [place] LEUK EMMANUELLE Negative Normal NEGATIVE [facility] Comment on above: Order Comment: No: D o not add to previous draw Criteria for reflexing a culture was not met. Please call the lab at [phone] within 24 hours of collection time if culture is needed Performed By: #### 3 0965 #### [facility] [address] [facility] [place] [address], [facility] MICRO NOT DONE negative chemical reactions unless requested in original order Normal [facility] Comment on above: Order Comment: No: D o not add to previous draw Criteria for reflexing a culture was not met. Please call the lab at [phone] within 24 hours of collection time if culture is needed Performed By: #### 3 0965 #### [facility] [address] [place] [address], [facility] Nitrite Ql (U) Negative Normal NEGATIVE [facility] Comment on above: Order Comment: No: D o not add to previous draw Criteria for reflexing a culture was not met. Please call the lab at [phone] within 24 hours of collection time if culture is needed Performed By: #### [id number] #### [facility] [address] [facility] [place] [place] [address], [facility] pH (Bld) 6.0 Normal 5.0-8.0 [facility] Comment on above: Order Comment: No: D o not add to previous draw Criteria for reflexing a culture was not met. Please call the lab at [phone] within 24 hours of collection time if culture is needed Performed By: #### [id number] #### [facility] [address] [facility] [place] [address], [facility] Protein (U) [Mass/Vol] Negative Normal NEGATIVE Th e [facility] Comment on above: Order Comment: No: D o not add to previous draw Criteria for reflexing a culture was not met. Please call the lab at [phone] within 24 hours of collection time if culture is needed Performed By: #### [id number] #### [facility] [address] [id number], [facility] SPEC GRAV 1.009 Low 1.015-1.020 [facility] Comment on above: Order Comment: No: D o not add to previous draw Criteria for reflexing a culture was not met. Please call the lab at [phone] within 24 hours of collection time if culture is needed Performed By: #### [id number] #### [facility] [address] [place] [address], [facility] Vital Signs Date Time Vital Sign Value Performing Clinician Facility 11-22-2024 14:44-0400 Body height 162.56 cm Al Ball DO Work Phone: [facility] 11-22-2024 14:44-0400 Body mass index (BMI) [Ratio] 27.3 kg/m2 Al Ball DO Work Phone: [facility] 11-22-2024 14:44-0400 Body weight 72.12 kg Al Ball DO Work Phone: [facility] 11-22-2024 14:44-0400 Diastolic blood pressure 75 mm[Hg] Al Ball DO Work Phone: [facility] 11-22-2024 14:44-0400 Heart rate 82 /min Al Ball DO Work Phone: [facility] 11-22-2024 14:44-0400 Respiratory rate 12 /min Al Ball DO Work Phone: [facility] 11-22-2024 14:44-0400 Systolic blood pressure 192 mm[Hg] Al Ball DO Work Phone: [facility] 09-20-2024 15:03-0400 Body height 162.56 cm Al Ball DO Work Phone: [facility] 09-20-2024 15:03-0400 Body mass index (BMI) [Ratio] 27.5 kg/m2 Al Ball DO Work Phone: [facility] 09-20-2024 15:03-0400 Body weight 72.68 kg Al Ball DO Work Phone: [facility] 09-20-2024 15:03-0400 Diastolic blood pressure 74 mm[Hg] La Ball DO Work Phone: [facility] 09-20-2024 15:03-0400 Heart rate 76 /min Al Ball DO Work Phone: [facility] 09-20-2024 15:03-0400 Respiratory rate 12 /min Al Ball DO Work Phone: [facility] 09-20-2024 15:03-0400 Systolic blood pressure 192 mm[Hg] Al Ball DO Work Phone: [facility] 07-29-2024 09:43-0400 Body height 162.56 cm La Ball DO Work Phone: [facility] 07-29-2024 09:43-0400 Body mass index (BMI) [Ratio] 27.4 kg/m2 Al Ball DO Work Phone: [facility] 07-29-2024 09:43-0400 Body weight 72.57 kg Al Ball DO Work Phone: [facility] 07-29-2024 09:43-0400 Diastolic blood pressure 92 mm[Hg] Al Ball DO Work Phone: [facility] 07-29-2024 09:43-0400 Heart rate 85 /min Al Ball DO Work Phone: [facility] 07-29-2024 09:43-0400 Respiratory rate 12 /min Al Ball DO Work Phone: [facility] 07-29-2024 09:43-0400 Systolic blood pressure 197 mm[Hg] Al Ball DO Work Phone: [facility] 04-29-2024 11:43-0500 Body height 162.56 cm [facility] 04-29-2024 11:43-0500 Body mass index (BMI) [Ratio] 27.3 kg/m2 [facility] 04-29-2024 11:43-0500 Body weight 72.29 kg [facility] 04-29-2024 11:43-0500 Diastolic blood pressure 81 mm[Hg] [facility] 04-29-2024 11:43-0500 Heart rate 92 /min [facility] 04-29-2024 11:43-0500 Respiratory rate 12 /min [facility] 04-29-2024 11:43-0500 Systolic blood pressure 180 mm[Hg] [facility] 03-14-2024 11:34-0500 Body height 162.56 cm [facility] 03-14-2024 11:34-0500 Body mass index (BMI) [Ratio] 27.6 kg/m2 [facility] 03-14-2024 11:34-0500 Body weight 73.02 kg [facility] 03-14-2024 11:34-0500 Diastolic blood pressure 75 mm[Hg] [facility] 03-14-2024 11:34-0500 Heart rate 83 /min [facility] 03-14-2024 11:34-0500 Respiratory rate 12 /min [facility] 03-14-2024 11:34-0500 Systolic blood pressure 150 mm[Hg] [facility] 05-11-2023 13:30-0500 Body height 162.56 cm [facility] 05-11-2023 13:30-0500 Body mass index (BMI) [Ratio] 27.6 kg/m2 [facility] 05-11-2023 13:30-0500 Body weight 73.02 kg [facility] 05-11-2023 13:30-0500 Diastolic blood pressure 72 mm[Hg] [facility] 05-11-2023 13:30-0500 Heart rate 84 /min [facility] 05-11-2023 13:30-0500 SaO2% (BldA) [Mass fraction] 97 % [facility] 05-11-2023 13:30-0500 Systolic blood pressure 168 mm[Hg] [facility] 02-27-2023 11:00-0500 Body height 162.56 cm Al Ball Other [facility] 02-27-2023 11:00-0500 Body mass index (BMI) [Ratio] 26.43 kg/m2 Al Ball Other [employer] Other 02-27-2023 11:00-0500 Body weight 69.85 kg Al Soto Other [facility] 02-27-2023 11:00-0500 Diastolic blood pressure 72 mm[Hg] Al Soto Other [facility] 02-27-2023 11:00-0500 Respiratory rate 18 /min Al Soto Other [facility] [employer] Other 02-27-2023 11:00-0500 Systolic blood pressure 190 mm[Hg] Al Soto Other [facility] Encounters Encounter Date Encounter Type Care Provider Facility Start: 11-22-2024 End: 11-22-2024 ambulatory Al Soto DO Work Phone: [facility] Work Phone: Start: 11-22-2024 End: 11-22-2024 Patient encounter procedure Al Soto DO -LUIS FERNANDO Soto [facility] Work Phone: Start: 10-31-2024 Non-patient / Non-visit Al boucher DO -[facility] [employer] Work Phone: Start: 10-28-2024 Non-patient / Non-visit Marcela plata MD -[facility] Work Phone: Start: 09-22-2024 End: 09-22-2024 ambulatory STEVIE DELAGDO [facility] Start: 09-22-2024 End: 09-22-2024 Subsequent hospital visit by physician Al Charles PERDOMO Work Phone: [facility] Comment on above: Vaginal itching Start: 09-20-2024 End: 09-20-2024 ambulatory Al Soto DO Work Phone: [facility] Work Phone: Start: 09-20-2024 End: 09-20-2024 Patient encounter procedure Al Soto DO -[facility] Work Phone: Start: 07-29-2024 End: 07-29-2024 Patient encounter procedure Al LY [facility] Work Phone: Start: 04-29-2024 End: 04-29-2024 ambulatory [facility] Work Phone: Start: 04-29-2024 End: 04-29-2024 Patient encounter procedure [facility] Work Phone: Start: 04-19-2024 Non-patient / Non-visit [facility] Work Phone: Start: 04-18-2024 Non-patient / Non-visit [facility] [employer] Work Phone: Start: 03-14-2024 End: 03-14-2024 Patient encounter procedure [facility] Work Phone: Start: 03-12-2024 Patient encounter procedure [facility] Start: 03-11-2024 Non-patient / Non-visit [facility] Work Phone: Start: 03-08-2024 Non-patient / Non-visit [facility] [employer] Work Phone: Start: 05-11-2023 End: 05-11-2023 ambulatory [facility] Work Phone: Start: 05-11-2023 End: 05-11-2023 Patient encounter procedure [facility] Work Phone: Start: 02-27-2023 End: 02-27-2023 ambulatory Al Soto Other [employer] Other Start: 02-27-2023 Patient encounter procedure Al Soto [facility] Start: 02-27-2023 End: 02-27-2023 [facility] Work Phone: Start: 02-19-2023 End: 02-19-2023 ambulatory Al Soto Other [employer] Other Start: 02-19-2023 Telephone encounter Al Soto [facility] Start: 12-29-2022 End: 12-29-2022 ambulatory Al Soto Other [employer] Other Start: 12-29-2022 Nursing evaluation o f patient and report [facility] Start: 06-05-2022 End: 06-06-[address] GONSALVES LISTED REQUEST Facility:[facility] Start: 05-16-2022 End: 05-17-[address] AL SOTO Facility:[facility] Start: 02-26-2022 Adult health examination Al Soto Other [employer] Other Start: 02-24-2022 End: 02-25-[address] AL SOTO Facility:[facility] Start: 08-21-2021 End: 08-22-[address] AL SOTO Facility:[facility] Procedures Date Procedure Procedure Detail Performing Clinician Start: 10-11-2020 H/O: hysterectomy RALH, BSO, A /P repair, Lynx sling, Cysto 10/11/20 Al Soto DO Work Phone: Start: 06-29-2017 Screening mammography B jose m [...] - Tdap) DTaP/Tdap/Td vaccine (2 - Tdap) [facility] Start: 2026 Respiratory Syncytia l Virus (RSV) or age 60 yrs+ (1 - 1-dose 75+ series) Respiratory Syncytial Virus (RSV) or age 60 yrs+ (1 - 1-dose 75+ series) [facility] [employer] Start: 10-21-2024 Influenza vaccination Flu vaccine (# 1) [facility] [employer] Start: 12-28-2023 Annual Wellness Visi t (Medicare) Annual Wellness Visit (Medicare) [facility] [employer] Start: 11-22-2023 COVID-19 Vaccine ( season) COVID-19 Vaccine ( season) [facility] [employer] Start: 2006 Screening for osteoporosis DEXA (modify frequency per FRAX score) [facility] [employer] Start: 01-11-1996 Screening for malign ant neoplasm of colon [facility] [employer] Start: 1991 Screening for malign ant neoplasm of breast Breast cancer screen [facility] [employer] Start: 1969 Hepatitis C screening Hepatitis C sc reen [facility] Start: 1963 Depression Screen Depression Screen [facility] [employer] Start: 1961 [facility] Breast - bilatera l Screening [facility] End: 09-22-2024 Vaginitis DNA Probe [facility] Comment on above: 1 Occurrences starti ng 09/22/2024 until 09/22/2024 [facility] Immunizations Immunization Date Immunization Notes Care Provider Juana raymond 12-29-2022 influenza virus vaccine, unspecified formulation [facility] 12-29-2022 influenza, high dose seasonal, preservative-free Al Soto Other [employer] [facility] [employer] Other 12-26-2021 influenza virus vaccine, split virus (incl. purified surface antigen) Al Soto Other [employer] Other 12-26-2021 influenza virus vaccine, unspecified formulation [facility] 05-28-2020 COVID-19, MODERNA BL UE border, Primary or Immunocompromised, (age 12y+), IM, 100 mcg/0.5mL Al Soto DO Work Phone: [facility] [employer] 05-01-2020 COVID-19, MODERNA BL UE border, Primary or Immunocompromised, (age 12y+), IM, 100 mcg/0.5mL Al Soto DO Work Phone: [facility] 07-07-2018 pneumococcal polysaccharide vaccine, 23 valent Al Soto Other [facility] 01-06-2018 influenza virus vaccine, split virus (incl. purified surface antigen) Al Soto Other [place] [employer] Other 01-06-2018 influenza virus vaccine, unspecified formulation [facility] 06-29-2017 diphtheria, tetanus toxoids and acellular pertussis vaccine, unspecified formulation Al Soto Other [facility] 06-29-2017 pneumococcal conjuga te vaccine, 13 valent Al Soto Other [facility] Payers Date Payer Category Payer Unknown [id number] 1959 Self-pay [id number] 1959 Unknown [id number] 1950 Unknown [id number] [id number] 1950 Unknown [id number] [id number] [id number] 1950 Unknown [id number] [id number] [id number] 1950 Unknown [id number] Self-pay Self Pay [id number] Unknown [id number] [id number] Social History Date Type Detail Facility Unknown if ever smoked [facility] [employer] Other Start: 09-22-2024 Sex Assigned At N [facility] [employer] Other Start: 05-11-2023 End: 05-11-2023 Tobacco smoking status NHIS Never smoked tobacco (finding) [facility] Start: 1950 Sex Assigned At Female F [facility] Start: 05-04-2012 End: 04-29-2024 Sex Female (finding) [facility] Start: 01-25-2024 Tobacco use and exposure Smokeless tobacco non-user [facility] [employer] Start: 09-22-2024 Alcoholic beverage intake Current drinker of alcohol (finding) [employer] Start: 09-22-2024 History of Social function [facility] [employer] Start: 10-01-2020 Alcohol Comment social [facility] [employer] [address] Start: 1950 Sex assigned at Not on file B on [employer] Medical [employer] Procedure Code Equipment Code Equipment Origin al Text Equipment Identifier Dates Sling Generator Rebuilder Polypr Suprpub Midurethral Halo Ndl Guid Tb Hndl [id number] Start: 10-11-2020 Comment on above: Description: [id number] Clinical Notes 02-19-2023 to 09-20-2024 Note Date & Type Note Facility 09-20-2024 Evaluation note Diagnosis Onset Date Resolution Cervical spondylosis with radiculopathy acute September 20 2:52pm Hx of fusion of cervical spine acute September 20, 2024 2:52pm Cervical spondylosis with radiculopathy acute November 2:25pm Hx of fusion of cervical spine acute November 22 2:25pm Hypercalcemia acute November 222024 2:25pm [facility] Work Phone: 1(396) 866-426705-09-2025 Evaluation note* Diagnosis Onset Date Resolution Status Admit Date Cervical spondylosis acute July 29, 2024 9:32am Radicular pain in right arm acute July 29, 2024 9:32am Neck pain noneactive July 29, 2024 9:32am [facility] Work Phone: 1(863) 300-451812-23-2024 Evaluation note* Diagnosis Onset Date Resolution Status Admit Date Essential (primary) hypertension acu te March 14, 2024 11:25am Hypercholesterolemia acute Dece mber 2023 11:25am Hypothyroid acute February 11:25am Medicare annual wellness vis it, subsequent acute March 14, 2 024 11:25am Overweight acute March 14, 2024 11:25am Screening mammogram for surinder st cancer acute March 14, 2 024 11:25am Colitis acute April 29, 2024 11:25am Hematochezia acute April 11:25am [facility] Work Phone: 1(868) 647-860612-08-2023 Evaluation note* Encounter Date Diagnosis Assessment Notes Treatment Notes Treatment Clinical Notes Feb, Medicare annual wellness visit, subsequent [...] specified hypothyroidism (ICD-10 - E03.8) Feb, Autoimmune thyroidit is (ICD-10 - E06.3) Clinically euthyroid TSH minally elevated, recommend rechecking in 3mo (GEOVANNI) Feb, Screening mammogram for breast cancer (ICD-10 - Z12.31) Instructed patient on monthly SBE and yearly mammograms. Feb, Menopause (ICD-10 - Z78.0) Continue estrogen crm. Healthy diet and exercise. [employer] Other 11-30-2023 Evaluation note* Encounter Date Diagnosis Assessment Notes Treatment Notes Treatment Clinical Notes Jan, Primary hypertension (ICD-10 - I10) Jan, Hypercholesteremia (ICD-10 - E78.00) Jan, Other specified hypothyroidism (ICD-10 - E03.8) Jan, Autoimmune thyroidit is (ICD-10 - E06.3) Jan, Vitamin D deficiency (ICD-10 - E55.9) Jan, High risk medication use (ICD-10 - Z79.899) [place] [employer] Other Evaluation [facility]No [facility] [employer] Other Evaluation note* Diagnosis Onset Date Resolution Status Bacterial conjunctivitis of right eye acute [facility] Work Phone: Evaluation note* Diagnosis Vaginal itching Pruritus of genital organs documented in this encounter [facility] Narrative - Reported* Type Description Date Medical History hypertension Medical History hypercholesterolemia Surgical History Problem Title : ANTE RIOR CERVICAL DISCECTOMY AND FUSION (ACDF) (32016), Problem Status : Active, Surgical History Problem Title : past surgical history reviewed, Problem Description : past surgical history reviewed, Problem Comment : reviewed - no changes required, Problem Status : Inactive, Surgical History Problem Title : Spinal Fusion - Neck, Problem Status : Active, [employer] Other History general Narrative - Reported* Type Description Date Medical History hypertension Medical History hypercholesterolemia Surgical History neck surgery Hospitalization History see surgical history [place] [employer] Other Reason for referral (narrative)No reason for referral [facility] Work Phone: Summary Purpose Family History Relationship Condition Age at Onset Recorded Date/T addy father Unknown Not Specified Unknown Hypertension Unknown Relationship Condition Age at Onset Recorded Date/T addy father Unknown mother Unknown Hypertension Unknown Advance Directives Advance Directive Response Recorded Date/ Time Advance Directives No September 27 10:11am Advance Directive Response Recorded Date/ Time Advance Directives No September 27 11:11am Date Activated Date Inactivated Comments 10/11/2020 12:36 PM 10/12/2020 3:44 PM Hospital Course Note MR#: [id number] [facility] Pt. Name: Epi Dailey Admitted: 11/13/2018 Discharged: 11/16/2018 Date of : 1950 Physician: Ryan Rehman MD DISCHARGE SUMMARY DIAGNOSES AT ADMISSION: 1. Nsa-GS-[id number] myocardial infarction. 2. Acute congestive heart failure exacerbation. 3. Oropharyngeal candidiasis. DIAGNOSES AT DISCHARGE: 1. Pmg-DT-kmwpypawz myocardial infarction. 2. Acute diastolic congestive heart failure exacerbation, resolved. 3. Oropharyngeal candidiasis, resolved. 4. Questionable pneumonia treated. 5. Hypertension controlled. 6. Hyperlipidemia. 7. Abnormal LFTs, resolved. HOSPITAL COURSE: This is a 68-year-old female, who was recently treated with Bactrim for her urinary tract infection and was also started on antibiotics and steroids for possible pneumonia, was transferred from the [place] for worsening shortness of breath along with [...] 11:25am Screening mammogram for breast [facility] 2023 11:25am Colitis April 29, 2024 1 1:25am Hematochezia April 29, 2024 1 1:25am Chief Complaint Admit Date right shoulder pain July 29, 2024 9:32am discuss MRI September 20, 2024 2:52p m Reason for Visit Admit Date Cervical spondylosis July 29, 2024 9:32a m Radicular pain in right arm July 29 9:32am Neck pain July 29, 2024 9:32am Chief Complaint Admit Date discuss MRI September 20, 2024 2:52p m Discuss MRI November 22, 2024 2:25pm Reason for Visit Admit Date Cervical spondylosis with radiculopathy September 20, 2024 2:52pm Hx of fusion of cervical spine September 20, 2024 2:52pm Cervical spondylosis with radiculopathy November 22, 2024 2:25pm Hx of fusion of cervical spine November 22, 2024 2:25pm Hypercalcemia November 22, 2024 2:25pm Additional Source Comments INFORMATION SOURCE (unrecogn ized section and content) DATE CREATED AUTHOR 12/31/2018 [facility] DATE CREATED AUTHOR AUTHOR'S ORGANIZ ATION 03/30/2020 [facility] DATE CREATED AUTHOR AUTHOR'S ORGANIZ ATION 06/06/2022 [facility] DATE CREATED AUTHOR AUTHOR'S ORGANIZ ATION 09/25/2024 [facility] REASON FOR VISIT (unrecogniz ed section [...] May 11, 2023 Maria Guadalupe Youssef APRN AIR SEALING TECHNICIAN-C Attending Provider Active Start: April End: May 11, 2023 Galley Boy Relationship Specialty Start Date End Date Al Soto DO [address] [place] [id number] PCP - General Internal Medicine 01/25/24 Team Status: Active Member Role Status Dates Al Soto DO Primary Care Provider Active Start: October 28, 2024 Marcela Haynes MD Attending Provider Active S tart: October 28, 2024 Team Status: Active Member Role Status Dates Al Soto DO Primary Care Provider Active Start: October 31, 2024 Al Soto DO Attending Provider Active Sta rt: October 31, 2024 Team Status: Inactive Member Role Status Dates Al Soto DO Primary Care Provider Active Start: November 22, 2024 End: November 22, 2024 Al Soto DO Attending Provider Active Sta rt: November 22, 2024 End: November 22, 2024 Goals (unrecognized section and content) Goals may [...] THE PRIMARY CLINICAL RECORDS. [facility] [employer] [facility]. provides no warranty or guarantee of the accuracy or completeness of information in this document.
[2024-12-08 11:16] LABS: Anion Gap 14.1; Blood Urea Nitrogen 14.0 mg/dL (7.0-18.0); Calcium 9.1 mg/dL (8.5-10.1); Carbon Dioxide 26.0 mmol/L (21.0-32.0); Chloride 106 mmol/L (98-107); Estimated GFR (African America >60 (>=60 mL/min/1.73m^2); Estimated GFR (Non-African Ame >60 (>=60 mL/min/1.73m^2); Glucose 112 mg/dL (74-106); Potassium 4.1 mmol/L (3.5-5.1); Sodium 142 mmol/L (136-145)
== END 2024-12-08 10:08 | disposition home or self-care (01) ==
LOC: LAB 10:07
PROVIDERS: PCP Internal Medicine; Visit Provider Internal Medicine
DX: E55.9 Vitamin D deficiency, unspecified (principal)
CPT/HCPCS: 36415; 80048; 82306; 83970; 84100

== ENCOUNTER 2024-12-13 11:08 | Outpatient (REF) | payer MEDICARE, SELFPAY ==
--- OUTSIDE RECORDS SUMMARY | 2024-12-13 11:11 | XMS_ITS | Clinical Summary ---
Author Organization [facility] Address [address] [place], [place] [id number] Care Team Providers Care Forest Nursery Worker Name Role Phone Unavailable Primary Care Provider [...]
--- OUTSIDE RECORDS SUMMARY | 2024-12-13 11:11 | XMS_ITS | Encounter Summary ---
Author Organization [facility] Address [address] [place] [address] Phone Care Team Providers Care Form Tamper Operator Name Role Phone Unavailable Primary Care Provider Unavailabl e Encounter Details Date Type Department Care Team (Late st Contact Info) Description 11/09/2024 Transcribe Orders [facility] [address] [place] [address] Nely Whittington MA Social History Tobacco Use [...]
--- OUTSIDE RECORDS SUMMARY | 2024-12-13 11:11 | XMS_ITS | Encounter Summary ---
Author Organization [facility] Address [address] [place], [place] [id number] Care Team Providers Care Inspector Packer Name Role Phone Al Soto DO Primary Care Provider [phone] Pcp, No Primary Care Provider Unavailabl e Source Comments In the event this information is protected by the Federal Confidentiality of Alcohol and Drug AbusePatient Records regulations: The Federal rules restrict any use of the information to criminally investigate or prosecute any alcohol or drug abuse patient.[facility] Encounter Details Date Type Department Care [...] on filedocumented in this encounter Care Teams Inspector Packer Relationship Specialty Start Date End Date Al Soto DO [address] [place] [address] PCP - General 05/10/02 10/04/21 Pcp, No PCP - General 10/05/21 04/22/22 documented as of this encounter
--- OUTSIDE RECORDS SUMMARY | 2024-12-13 11:11 | XMS_ITS | Encounter Summary ---
Author Organization [employer] Address [facility] [id number] [address] [place] [address] Care Team Providers Care Drywall Stripper Helper Name Role Phone Unavailable Primary Care Provider Unavailabl e Encounter Details Date Type Department Care Team (Late st Contact Info) Description 11/03[facility]2022 [facility]phone [facility] [address] [place] [address] Keri Wilkerson Social History Tobacco [...] her she would like it sent to [facility] in [place]. Please advise. Thank you. * Telephone Encounter [...]
--- OUTSIDE RECORDS SUMMARY | 2024-12-13 11:11 | XMS_ITS | Clinical Summary ---
Author Organization [facility] Address [address] [place] [address] Phone Care Team Providers Care Pipe Coverer Name Role Phone Unavailable Primary Care Provider Unavailabl e Encounters Date Type Department Care Team Description 11/09/2024 Transcribe Orders [facility] [address] [place] [address] Nely Whittington MA 11/09/2024 Transcribe Orders [facility] [address] [place] [address] Al Soto, Other spondylosis with radiculopathy, cervical region (Primary Dx); Arthrodesis status 09/21/2024 Telephone [facility] [address] [place] [address] Bonifacio Melton MD from Last [...]
--- OUTSIDE RECORDS SUMMARY | 2024-12-13 11:11 | XMS_ITS | Encounter Summary ---
Author Organization [facility] Address [address] [place] [address] Phone Care Team Providers Care Senior Front End Engineer Name Role Phone Unavailable Primary Care Provider Unavailabl e Reason for Referral * Consultation (Routine) - Authorized Specialty Diagnoses / Procedures Referred By Brandi yost Referred To Contact Orthopaedic Surgery / Orthopedic Surgery Diagnoses Other spondylosis with radiculopathy, cervical region Arthrodesis status Al Soto DO [address] [place] [address] Phone: tel: fax: Referral ID Status Reason Start Date Expiration Date Visits Requested Visits Authorized [id number] Authorized Specialty Services Required 11/09/2024 11/09/2025 1 1 Encounter Details Date Type Department Care Team (Late st Contact Info) Description 11/09/2024 Transcribe Orders [facility] [address] [place] [address] Al Soto DO [address] [place], [place] [id number] Other spondylosis with radiculopathy, cervical region (Primary [...]
--- OUTSIDE RECORDS SUMMARY | 2024-12-13 11:11 | XMS_ITS | Clinical Summary ---
Author Organization [facility] Address [address] [place] [address] Care Team Providers Care Patient Coordinator Name Role Phone Unavailable Primary Care Provider [...]
--- OUTSIDE RECORDS SUMMARY | 2024-12-13 11:11 | XMS_ITS | Clinical Summary ---
Author Organization [employer] tem Address [facility] [id number] [address] [place] [address] Care Team Providers Care Mmd Unit Teacher Name Role Phone Unavailable Primary Care Provider [...]
--- OUTSIDE RECORDS SUMMARY | 2024-12-13 11:11 | XMS_ITS | Encounter Summary ---
Author Organization [facility] Address [address] [place] [address] Phone Care Team Providers Care Surgical Instrument Maker Name Role Phone Unavailable Primary Care Provider Unavailabl e Encounter Details Date Type Department Care Team (Late st Contact Info) Description 09/21/2024 Telephone [facility] [address] [address] Bonifacio Melton MD [address] [facility], [address] [place] [id number] Social History Tobacco Use Types Packs/Day [...]
--- OUTSIDE RECORDS SUMMARY | 2024-12-13 11:14 | XMS_ITS | CCD ---
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 Role Phone DR AL SOTO Admitting [...] Care Provider Al Soto DO Attending Provider [phone] Al Soto DO Primary Care Provider STEVIE DELGADO Referring AL Chaney Primary Care Unavailable Al Soto DO Primary Care Provider Al Soto DO Attending Provider [place] MEZA, Marcela Attending Provider Unavailab le Allergies Allergy Classification Reported Allergen(s) Allergy Type Date of Onset Reaction(s) Facility (1 source) Sulfamethoxazole / Trimethoprim Drug Allergy [facility] Repository (2 sources) patient allergy list reviewed by nurse or physicia Propensity to adverse reactions 06-30-19 18 Comment:Done DiBcom Other (2 sources) Allergies Reconciled Propensity to adverse reactions Unknown DiBcom Other (4 sources) Substance with sulfonamide structure and antibacterial mechanism of action (substance) Drug allergy 03-29-19 21 Hives, Other (See Comments) [facility] (1 source) Sulfamethoxazole / Trimethoprim Drug Allergy 09-23-19 25 [facility] Medications Current Medications Medication Drug Class(es) Dates [...] daily for 90 days *Pick strength-form from 2nd Watch for eRX* Feb, Active Start: 02-26-2022 take 1 tablet by suzie th once daily Euthyrox 75mcg Euthyrox 75mcg, 1 Tablet daily # 90, 02/26/2022, Ref. x3. Active oral daily for 90 *Pick strength-form from 2nd Watch for eRX* Feb, Active take 1 tablet [...] 2023 1:00am February 22, 2024 9:39am nystatin 332290 unt/ml / triamcinolone acetonide 1 mg/ml topical cream (1 source) Polyene Antifungal, Corticosteroid Start: 09-22-2024 nystatin-triamcinolone (MYCOLOG II) 241051-7.1 UNIT/GM-% cream Apply topically 2 times daily. 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 Eosinophils/100 WBC Auto (Bl d)Ordered By: Al Soto on 10-31-2024 Eosinophils/100 WBC (Bld) 1.2 % 0.9-7.0 [facility] Erythrocyte distribution wid th Auto (RBC) [Ratio]Ordered By: Al Soto on 10-31-2024 Erythrocyte distribution width (RBC) [Ratio] 13.8 % 11.0-15.0 [facility] Glomerular filtration rate ( GFR) estimation in non- AmericanOrdered By: Al Soto on 10-31-2024 GFR/1.73 sq M.predicted among non-blacks MDRD (S/P/Bld) [Vol rate/Area] mL/min/{1.73_m2} >=60 mL/min/1.73m 2 [facility] Hematocrit Auto (Bld) [Volum e fraction]Ordered By: Al Soto on 10-31-2024 Hematocrit (Bld) [Volume fraction] 44.1 % 36.0-48.0 [facility] Hemoglobin [Mass/volume] in BloodOrdered By: Al Soto 10-31-2024 Hemoglobin (Bld) [Mass/Vol] 15.0 g/dL 12.0-16.0 [facility] IgA [Mass/volume] in Serum o r PlasmaOrdered By: Al Soto 10-31-2024 IgA [Mass/Vol] 247 mg/dL 64-422 [facility] IgG [Mass/volume] in Serum o r PlasmaOrdered By: Al Soto 10-31-2024 IgG [Mass/Vol] 1471 mg/dL [id number] [facility] IgM [Mass/volume] in Serum o r PlasmaOrdered By: Al Soto 10-31-2024 IgM [Mass/Vol] 64 mg/dL 26-217 [facility] Immunoglobulin light chains. kappa.free [Mass/volume] in SerumOrdered By: Al Soto 10-31-2024 Immunoglobulin light chains.kappa.free (S) [Mass/Vol] 24.8 mg/L Abnormal 3.3-19.4 [facility] Immunoglobulin light chains. kappa.free/Immunoglobulin light chains.lambda.free [MassOrdered By: Al Soto on 10-31-2024 Immunoglobulin light chains.kappa.free/Immuno globulin light chains.lambda.free (S) [Mass ratio] 1.44 0.26-1.65 [facility] Comment on above: Performed at: [address] [id number] Director: Craig Goel PhD, Phone: [phone] Immunoglobulin light chains. lambda.free [Mass/volume] in Serum or PlasmaOrdered By: Al Soto on 10-31-2024 Immunoglobulin light chains.lambda.free [Mass/Vol] 17.2 mg/L 5.7-26.3 [facility] Laboratory - Chemistry and C hemistry - challengeOrdered By: Al Soto on 10-31-2024 Calcium [Mass/Vol] 10.3 mg/dL High 8.5-10.1 [facility] Chloride [Moles/Vol] 104 mmol/L 98-[address] [facility] CO2 [Moles/Vol] 24.8 mmol/L 21.0-32.0 [facility] Creatinine [Mass/Vol] 0.90 mg/dL 0.55-1.02 [facility] GFR/1.73 sq M.predicted MDRD (S/P/Bld) [Vol rate/Area] mL/min/{1.73_m2} >=60 mL/min/1.73m 2 [facility] Glucose [Mass/Vol] 110 mg/dL High 74-106 [facility] Potassium [Moles/Vol] 3.9 mmol/L 3.5-5.1 [facility] Sodium [Moles/Vol] 140 mmol/L 136-145 [facility] Urea nitrogen [Mass/Vol] 12.0 mg/dL 7.0-18.0 [facility] Urea nitrogen/Creatinine [Mass ratio] 13.3 mg/mg [facility] Laboratory - Hematology and Cell countsOrdered By: Al Soto on 10-31-2024 Immature granulocytes/100 WBC (Bld) 0.0 % 0.0-0.5 [facility] Leukocytes [#/volume] correc nayla for nucleated erythrocytes in Blood by Automated counOrdered By: Al Soto on 10-31-2024 WBC corrected for nucl RBC Auto (Bld) [#/Vol] 6.6 10 3/uL 4.0-11.0 [facility] Lymphocytes Auto (Bld) [#/Vo l]Ordered By: Al Soto on 10-31-2024 Lymphocytes (Bld) [#/Vol] 3.1 10 3/uL 1.2-3.8 [facility] Lymphocytes/100 WBC Auto (Bl d)Ordered By: Al Soto on 10-31-2024 Lymphocytes/100 WBC (Bld) 46.7 % 20.5-60.0 [facility] MCH Auto (RBC) [Entitic mass ]Ordered By: Al Soto on 10-31-2024 MCH (RBC) [Entitic mass] 29.7 pg 26.7-34.0 [facility] MCHC Auto (RBC) [Mass/Vol]Or dered By: Al Soto on 10-31-2024 MCHC (RBC) [Mass/Vol] 34.0 g/dL 29.9-35.2 [facility] MCV Auto (RBC) [Entitic vol] Ordered By: Al Soto on 10-31-2024 MCV (RBC) [Entitic vol] 87.3 fL 81.0-99.[address] [facility] Monocytes Auto (Bld) [#/Vol] Ordered By: Al Soto on 10-31-2024 Monocytes (Bld) [#/Vol] 0.3 10 3/uL 0.3-0.8 [facility] Monocytes/100 WBC Auto (Bld) Ordered By: Al Soto on 10-31-2024 Monocytes/100 WBC (Bld) 4.9 % 1.7-12.[address] [facility] Neutrophils Auto (Bld) [#/Vo l]Ordered By: Al Soto on 10-31-2024 Neutrophils (Bld) [#/Vol] 3.1 10 3/uL 1.4-6.5 [facility] Neutrophils/100 WBC Auto (Bl d)Ordered By: Al Soto on 10-31-2024 Neutrophils/100 WBC (Bld) 46.7 % 43.0-75.0 [facility] No Panel InformationOrdered By: Al Soto on 10-31-2024 Eosinophils # (Auto) 0.1 10 3/uL 0.0-0.7 [facility] Immature Granulocyte # (Auto) 0.00 10 3/uL 0.00-0.03 [facility] Protein Electrophoresis M-Nestor Not Observed g/dL Not Observed [facility] Protein Electrophoresis Note Comment . [facility] Comment on above: Protein electrophore sis scan will follow via computer,mail, or commercial housekeeper delivery. Platelet mean volume Auto (B ld) [Entitic vol]Ordered By: Al Soto on 10-31-2024 Platelet mean volume (Bld) [Entitic vol] 11.6 fL 9.5-13.5 [facility] Platelets Auto (Bld) [#/Vol] Ordered By: Al Soto on 10-31-2024 Platelets (Bld) [#/Vol] 232 10 3/uL 150-450 [facility] Protein [Mass/volume] in Ser um or PlasmaOrdered By: Al Soto on 10-31-2024 Protein [Mass/Vol] 8.5 g/dL 6.0-8.5 [facility] RBC Auto (Bld) [#/Vol]Ordere d By: Al Soto on 10-31-2024 RBC (Bld) [#/Vol] 5.05 10 6/uL 4.20-5.40 [facility] Serum globulin measurement ( mass/volume)Ordered By: Al Soto on 10-31-2024 Globulin (S) [Mass/Vol] 4.3 g/dL Abnormal 2.2-3.[address] [facility] Serum or plasma albumin/glob ulin mass ratioOrdered By: Al Soto 10-31-2024 Albumin/Globulin [Mass ratio] 1.0 {ratio} 0.7-1.7 [facility] Serum or plasma alpha 1 glob ulin measurement by electrophoresis (mass/volume)Ordered By: Al Soto on 10-31-2024 Alpha 1 globulin Elph [Mass/Vol] 0.3 g/dL 0.0-0.4 [facility] Serum or plasma alpha 2 glob ulin measurement by electrophoresis (mass/volume)Ordered By: Al Soto on 10-31-2024 Alpha 2 globulin Elph [Mass/Vol] 1.1 g/dL Abnormal 0.4-1.0 [facility] Serum or plasma anion gap de terminationOrdered By: Al Soto on 10-31-2024 Anion gap [Moles/Vol] 15.1 mmol/L [facility] Serum or plasma beta globuli n measurement by electrophoresis (mass/volume)Ordered By: Al Soto on 10-31-2024 Beta globulin Elph [Mass/Vol] 1.4 g/dL Abnormal 0.7-1.3 [facility] Serum or plasma gamma globul in measurement by electrophoresis (mass/volume)Ordered By: Al Soto on 10-31-2024 Gamma globulin Elph [Mass/Vol] 1.5 g/dL 0.4-1.8 [facility] Serum or plasma immunoelectr ophoresis interpretationOrdered By: Al Soto on 10-31-2024 Interpretation IEP [Interp] Comment . [facility] Comment on above: No monoclonality det ected. Glomerular filtration rate ( GFR) estimation in non- AmericanOrdered By: Marcela Haynes on 10-28-2024 GFR/1.73 sq M.predicted among non-blacks MDRD (S/P/Bld) [Vol rate/Area] mL/min/{1.73_m2} >=60 mL/min/1.73m 2 [facility] Laboratory - Chemistry and C hemistry - challengeOrdered By: Marcela Haynes on 10-28-2024 Creatinine [Mass/Vol] 0.85 mg/dL 0.55-1.02 [facility] GFR/1.73 sq M.predicted MDRD (S/P/Bld) [Vol rate/Area] mL/min/{1.73_m2} >=60 mL/min/1.73m 2 [facility] Vaginitis DNA Probeon 2024 Zaida Negative Normal NEG [facility] Comment on above: Result Comment: for Zaida sp. Method of testing is a DNA probe intended for detection and identification of Zaida species, Gardnerella vaginalis, and Trichomonas vaginalis nucleic acid in vaginal fluid specimens from patients with symptoms of vaginitis/vaginosis. Performed By: #### V AGP #### [employer] [address] [place] [id number] [employer] Machine Operator: Matthew España MD Gardnerella Positive Abnormal NEG [facility] Comment on above: Result Comment: for Gardnerella vaginalis Performed By: #### V AGP #### [employer] [address] [place] [id number] [employer] Operator: Matthew España MD Trichomonas Negative Normal NEG [facility] Comment on above: Result Comment: for Trichomonas Vaginalis Performed By: #### V AGP #### [facility] [address] [place], [place] [id number] [employer] Machine Operator: Matthew España MD Vaginitis DNA Probeon 2024 Source .VAGINAL SWAB Normal [facility] Comment on above: Performed By: #### V AGP #### [facility] [address] [place], [place] [id number] [employer] Operator: Matthew España MD Basophils Auto (Bld) [#/Vol] on 04-18-2024 Basophils (Bld) [#/Vol] Automated basoph il count 0.0-0.1 [facility] Basophils/100 WBC Auto (Bld) on 04-18-2024 Basophils/100 WBC (Bld) Automated basophil % 0. 2-2.0 [facility] Eosinophils/100 WBC Auto (Bl d)on 04-18-2024 Eosinophils/100 WBC (Bld) Automated eosinophil % Low 0.9-7.0 [facility] Erythrocyte distribution wid th Auto (RBC) [Ratio]on 04-18-2024 Erythrocyte distribution width (RBC) [Ratio] Erythrocyte distribution width [Ratio] by Automated count 11.0-15.0 [facility] Estimated glomerular filtrat ion rate (GFR) non- Americanon 04-18-2024 GFR/1.73 sq M.predicted among non-blacks MDRD (S/P/Bld) [Vol rate/Area] Estimated glomerular filtration rate (GFR) non- Low >=60 mL/min/1.73m 2 [facility] Hematocrit Auto (Bld) [Volum e fraction]on 04-18-2024 Hematocrit (Bld) [Volume fraction] Hematocrit [Volume Fraction] of Blood by Automated count 36.0-48.0 [facility] Hemoglobin [Mass/volume] in Bloodon 04-18-2024 Hemoglobin (Bld) [Mass/Vol] Hemoglobin [Mass/volume] in Blood 12.0-16.0 [facility] Laboratory - Chemistry and C hemistry - challengeon 04-18-2024 Calcium [Mass/Vol] 9.8 mg/dL 8.5-10.1 [facility] Chloride [Moles/Vol] 101 mmol/L 98-[address] [facility] CO2 [Moles/Vol] 24.7 mmol/L 21.0-32.0 [facility] Creatinine [Mass/Vol] 1.02 mg/dL 0.55-1.02 [facility] GFR/1.73 sq M.predicted MDRD (S/P/Bld) [Vol rate/Area] mL/min/{1.73_m2} >=60 mL/min/1.73m 2 [facility] Glucose [Mass/Vol] 123 mg/dL High 74-106 [facility] Potassium [Moles/Vol] 3.6 mmol/L 3.5-5.1 [facility] Sodium [Moles/Vol] 136 mmol/L 136-145 [facility] Urea nitrogen [Mass/Vol] 13.0 mg/dL 7.0-18.0 [facility] Urea nitrogen/Creatinine [Mass ratio] 12.7 mg/mg [facility] Laboratory - Hematology and Cell countson 04-18-2024 Immature granulocytes/100 WBC (Bld) 0.2 % 0.0-0.5 [facility] Leukocytes [#/volume] correc nayla for nucleated erythrocytes in Blood by Automated counon 04-18-2024 WBC corrected for nucl RBC Auto (Bld) [#/Vol] Leukocytes [#/volume] corrected for nucleated erythrocytes in Blood by Automated coun High 4.0-11.0 [facility] Lymphocytes Auto (Bld) [#/Vo l]on 04-18-2024 Lymphocytes (Bld) [#/Vol] Lymphocytes [#/volume] in Blood by Automated count High 1.2-3.8 [facility] Lymphocytes/100 WBC Auto (Bl d)on 04-18-2024 Lymphocytes/100 WBC (Bld) Lymphocytes/100 leukocytes in Blood by Automated count 20.5-60.0 [facility] MCH Auto (RBC) [Entitic mass ]on 04-18-2024 MCH (RBC) [Entitic mass] MCH [Entitic ma ss] by Automated count 26.7-34.0 [facility] MCHC Auto (RBC) [Mass/Vol]on 04-18-2024 MCHC (RBC) [Mass/Vol] MCHC [Mass/volume] by Automated count 29.9-35.2 [facility] MCV Auto (RBC) [Entitic vol] on 04-18-2024 MCV (RBC) [Entitic vol] MCV [Entitic vol ume] by Automated count 81.0-99.0 [facility] Monocytes Auto (Bld) [#/Vol] on 04-18-2024 Monocytes (Bld) [#/Vol] Automated blood monocyte count 0.3-0.8 [facility] Monocytes/100 WBC Auto (Bld) on 04-18-2024 Monocytes/100 WBC (Bld) Automated monocyte % 1. 7-12.0 [facility] Neutrophils Auto (Bld) [#/Vo l]on 04-18-2024 Neutrophils (Bld) [#/Vol] Neutrophils [#/volume] in Blood by Automated count High 1.4-6.5 [facility] Neutrophils/100 WBC Auto (Bl d)on 04-18-2024 Neutrophils/100 WBC (Bld) Automated neutrophil % 43.0-75.0 [facility] No Panel Informationon 04-18 Eosinophils # (Auto) 0.0 10 3/uL 0.0-0.7 [facility] Immature Granulocyte # (Auto) 0.02 10 3/uL 0.00-0.03 [facility] Platelet mean volume Auto (B ld) [Entitic vol]on 04-18-2024 Platelet mean volume (Bld) [Entitic vol] Platelet mean volume [Entitic volume] in Blood by Automated count 9.5-13.5 [facility] Platelets Auto (Bld) [#/Vol] on 04-18-2024 Platelets (Bld) [#/Vol] Platelets [#/vol ume] in Blood by Automated count 150-450 [facility] RBC Auto (Bld) [#/Vol]on RBC (Bld) [#/Vol] Erythrocytes [#/volume] in Blood by Automated count 4.20-5.40 [facility] Serum or plasma anion gap de terminationon 04-18-2024 Anion gap [Moles/Vol] Serum or plasma anion gap determination [facility] Basophils Auto (Bld) [#/Vol] on 03-08-2024 Basophils (Bld) [#/Vol] Automated basoph il count 0.0-0.1 [facility] Basophils/100 WBC Auto (Bld) on 03-08-2024 Basophils/100 WBC (Bld) Automated basophil % 0. 2-2.0 [facility] Cholesterol in LDL Calc [Mas s/Vol]on 03-08-2024 Cholesterol in LDL [Mass/Vol] Cholesterol in LDL [Mass/volume] in Serum or Plasma by calculation [facility] Comment on above: <100 mg/dl [id number] 0-129 mg/dl NEAR OR ABOVE [id number] mg/dl BORDERLINE [id number] mg/dl HIGH>190 mg/dl VERY HIGH Cholesterol in VLDL Calc [Ma ss/Vol]on 03-08-2024 Cholesterol in VLDL [Mass/Vol] Cholesterol in VLDL [Mass/volume] in Serum or Plasma by calculation [facility] Eosinophils/100 WBC Auto (Bl d)on 03-08-2024 Eosinophils/100 WBC (Bld) Automated eosinophil % 0.9-7.0 [facility] Erythrocyte distribution wid th Auto (RBC) [Ratio]on 03-08-2024 Erythrocyte distribution width (RBC) [Ratio] Erythrocyte distribution width [Ratio] by Automated count 11.0-15.0 [facility] Estimated glomerular filtrat ion rate (GFR) non- Americanon 03-08-2024 GFR/1.73 sq M.predicted among non-blacks MDRD (S/P/Bld) [Vol rate/Area] Estimated glomerular filtration rate (GFR) non- >=60 mL/min/1.73m 2 [facility] Globulin Calc (S) [Mass/Vol] on 03-08-2024 Globulin (S) [Mass/Vol] Serum globulin measurement by calculation (mass/volume) [facility] Hematocrit Auto (Bld) [Volum e fraction]on 03-08-2024 Hematocrit (Bld) [Volume fraction] Hematocrit [Volume Fraction] of Blood by Automated count 36.0-48.0 [facility] Hemoglobin [Mass/volume] in Bloodon 03-08-2024 Hemoglobin (Bld) [Mass/Vol] Hemoglobin [Mass/volume] in Blood 12.0-16.0 [facility] Laboratory - Chemistry and C hemistry - challengeon 03-08-2024 Albumin [Mass/Vol] 3.7 g/dL 3.4-5.0 [facility] ALP [Catalytic activity/Vol] 76 U/L 46-116 [facility] ALT [Catalytic activity/Vol] 56 U/L 14-59 [facility] AST [Catalytic activity/Vol] 45 U/L High 15-37 [facility] Bilirubin [Mass/Vol] 0.5 mg/dL 0.2-1.[address] [facility] Calcium [Mass/Vol] 9.2 mg/dL 8.5-10.1 [facility] Chloride [Moles/Vol] 106 mmol/L 98-[address] [facility] Cholesterol [Mass/Vol] 151 mg/dL <=200 [facility] Cholesterol in HDL [Mass/Vol] 37 mg/dL Low 40-60 [facility] Comment on above: > or =60 mg/dl - LOW CARDIOVASCULAR RISK<40 mg/dl - HIGH CARDIOVASCULAR RISK CO2 [Moles/Vol] 27.0 mmol/L 21.0-32.0 [facility] Creatinine [Mass/Vol] 0.91 mg/dL 0.55-1.02 [facility] GFR/1.73 sq M.predicted MDRD (S/P/Bld) [Vol rate/Area] mL/min/{1.73_m2} >=60 mL/min/1.73m 2 [facility] Glucose [Mass/Vol] 107 mg/dL High 74-106 [facility] Potassium [Moles/Vol] 4.0 mmol/L 3.5-5.1 [facility] Protein [Mass/Vol] 7.6 g/dL 6.4-8.2 [facility] Sodium [Moles/Vol] 142 mmol/L 136-145 [facility] Triglyceride [Mass/Vol] 149 mg/dL <=[address] [facility] TSH Qn 1.900 m[IU]/L 0.358-3.740 [facility] Urea nitrogen [Mass/Vol] 13.0 mg/dL 7.0-18.0 [facility] Urea nitrogen/Creatinine [Mass ratio] 14.3 mg/mg [facility] Laboratory - Hematology and Cell countson 03-08-2024 Immature granulocytes/100 WBC (Bld) 0.1 % 0.0-0.5 [facility] Leukocytes [#/volume] correc nayla for nucleated erythrocytes in Blood by Automated counon 03-08-2024 WBC corrected for nucl RBC Auto (Bld) [#/Vol] Leukocytes [#/volume] corrected for nucleated erythrocytes in Blood by Automated coun 4.0-11.0 [facility] Lymphocytes Auto (Bld) [#/Vo l]on 03-08-2024 Lymphocytes (Bld) [#/Vol] Lymphocytes [#/volume] in Blood by Automated count 1.2-3.8 [facility] Lymphocytes/100 WBC Auto (Bl d)on 03-08-2024 Lymphocytes/100 WBC (Bld) Lymphocytes/100 leukocytes in Blood by Automated count 20.5-60.0 [facility] MCH Auto (RBC) [Entitic mass ]on 03-08-2024 MCH (RBC) [Entitic mass] MCH [Entitic ma ss] by Automated count 26.7-34.0 [facility] MCHC Auto (RBC) [Mass/Vol]on 03-08-2024 MCHC (RBC) [Mass/Vol] MCHC [Mass/volume] by Automated count 29.9-35.2 [facility] MCV Auto (RBC) [Entitic vol] on 03-08-2024 MCV (RBC) [Entitic vol] MCV [Entitic vol ume] by Automated count 81.0-99.0 [facility] Monocytes Auto (Bld) [#/Vol] on 03-08-2024 Monocytes (Bld) [#/Vol] Automated blood monocyte count 0.3-0.8 [facility] Monocytes/100 WBC Auto (Bld) on 03-08-2024 Monocytes/100 WBC (Bld) Automated monocyte % 1. 7-12.0 [facility] Neutrophils Auto (Bld) [#/Vo l]on 03-08-2024 Neutrophils (Bld) [#/Vol] Neutrophils [#/volume] in Blood by Automated count 1.4-6.5 [facility] Neutrophils/100 WBC Auto (Bl d)on 03-08-2024 Neutrophils/100 WBC (Bld) Automated neutrophil % Low 43.0-75.0 [facility] No Panel Informationon 03-08 Eosinophils # (Auto) 0.2 10 3/uL 0.0-0.7 [facility] Immature Granulocyte # (Auto) 0.01 10 3/uL 0.00-0.03 [facility] Platelet mean volume Auto (B ld) [Entitic vol]on 03-08-2024 Platelet mean volume (Bld) [Entitic vol] Platelet mean volume [Entitic volume] in Blood by Automated count 9.5-13.5 [facility] Platelets Auto (Bld) [#/Vol] on 03-08-2024 Platelets (Bld) [#/Vol] Platelets [#/vol ume] in Blood by Automated count 150-450 [facility] RBC Auto (Bld) [#/Vol]on RBC (Bld) [#/Vol] Erythrocytes [#/volume] in Blood by Automated count 4.20-5.40 [facility] Serum or plasma albumin/glob ulin mass ratioon 03-08-2024 Albumin/Globulin [Mass ratio] Serum or plasma albumin/globulin mass ratio [facility] Serum or plasma anion gap de terminationon 03-08-2024 Anion gap [Moles/Vol] Serum or plasma anion gap determination [facility] Serum or plasma total choles terol/high density lipoprotein (HDL) cholesterol mass lai 03-08-2024 Cholesterol.total/Choles terol in HDL [Mass ratio] Serum or plasma total cholesterol/high density lipoprotein (HDL) cholesterol mass rat [facility] Comment on above: 3.3 - 4.4 LOW RISK4. 4 - 7.1 AVERAGE RISK7.1 - 11.0 MODERATE RISK>11.0 HIGH RISK GEOVANNI - TSHon 06-05-2022 TSH 0.299 uIU/mL Critically low 0.358-3.740 [facility] Comment on above: Performed By: #### D ATTSH #### [facility] [address], [place] [address] Dr. Kali Haynes TSH RANGE SEE BELOW Normal [facility] Comment on above: Result Comment: <0.3 4 UIU/ml HYPERTHYROID 0.34-5.60 UIU/ml EUTHYROID >5.60 UIU/ml HYPOTHYROID Performed By: #### D ATTSH #### [facility] [address], [place] [address] Dr. Kali Haynes MG MAMM SCREEN 3D IFEANYI CADon 05-16-2022 MG MAMM SCREEN 3D IFEANYI CAD Patient: EPI DAILEY Exam Date: 05/16/2022 : 1950 Gender:F Ordering : DR AL SOTO D.O. Admission #: [id number] Family : Order #: [id number] CLICK HERE TO VIEW EXAM RADIOLOGY REPORT [...] Treatments None Family Cancers None LOCATION: [facility] BREAST COMPOSITION: Heterogeneously dense,which may obscure [...] M.D. on 05/16/2022 at 14:31 Normal [facility] CBC AUTO DIFFon 02-24-2022 BASO # 0.0 103/ul Normal 0.0-0.1 [facility] Comment on above: Performed By: #### C BC #### [facility] [address] [place] [address] [address] Kali Haynes Basophils/100 WBC (Bld) 0.5 % Normal 0.2-2.0 [facility] Comment on above: Performed By: #### C BC #### [facility] [address] [place] [address] Dr. Kali Haynes EO # 0.2 103/ul Normal 0.0-0.7 [facility] Comment on above: Performed By: #### C BC #### [facility] [address] [place] [address] Dr. Kali Haynes Eosinophils/100 WBC (Bld) 2.8 % Normal 0.9-7.0 [facility] Comment on above: Performed By: #### C BC #### [facility] [address] [place] [address] Dr. Kali Haynes Erythrocyte distribution width (RBC) [Ratio] 13.9 % Normal 11.0-15.0 [facility] Comment on above: Performed By: #### C BC #### [facility] [address] [place] [address] Dr. Kali Haynes Hematocrit (Bld) [Volume fraction] 43.0 % Normal 36.0-48.0 [facility] Comment on above: Performed By: #### C BC #### [facility] [address] [place] [address] Dr. Kali Haynes Hemoglobin (Bld) [Mass/Vol] 14.5 g/dL Normal 12.0-16.0 [facility] Comment on above: Performed By: #### C BC #### [facility] [address] [place] [address] Dr. Kali Haynes IG # 0.01 10e3/ul Normal 0.00-0.03 [facility] Comment on above: Performed By: #### C BC #### [facility] [address] [place] [address] Dr. Kali Haynes IG % 0.2 % Normal 0.0-0.5 [facility] Comment on above: Performed By: #### C BC #### [facility] [address] [place] [address] Dr. Kali Haynes LYMPH # 3.9 103/ul Critically high 1.2-3.8 [facility] Comment on above: Performed By: #### C BC #### [facility] [address] [place] [address] Dr. Kali Haynes Lymphocytes/100 WBC (Bld) 59.7 % Normal 20.5-60.0 [facility] Comment on above: Performed By: #### C BC #### [facility] [address] [place] [address] Dr. Kali Haynes MANUAL DIFF REQ NO Normal [facility] Comment on above: Performed By: #### C BC #### [facility] [address] [place] [address] Dr. Kali Haynes MCH (RBC) [Entitic mass] 29.3 pg Normal 26.7-34.0 [facility] Comment on above: Performed By: #### C BC #### [facility] [address] [place] [address] Dr. Kali Haynes MCHC (RBC) [Mass/Vol] 33.7 g/dL Normal 29.9-35.2 [facility] Comment on above: Performed By: #### C BC #### [facility] [address] [place] [address] Dr. Kali Haynes MCV (RBC) [Entitic vol] 86.9 fL Normal 81.0-99.0 [facility] Comment on above: Performed By: #### C BC #### [facility] [address] [place] [address] Dr. Kali Haynes MONO # 0.4 103/ul Normal 0.3-0.8 [facility] Comment on above: Performed By: #### C BC #### [facility] [address] [place] [address] Dr. Kali Haynes Monocytes/100 WBC (Bld) 6.5 % Normal 1.7-12.0 [facility] Comment on above: Performed By: #### C BC #### [facility] [address] [place] [address] Dr. Kali Haynes NEUT # 2.0 103/ul Normal 1.4-6.5 [facility] Comment on above: Performed By: #### C BC #### [facility] [address] [place] [address] Dr. Kali Haynes Neutrophils/100 WBC (Bld) 30.3 % Critically low 43.0-75.0 [facility] Comment on above: Performed By: #### C BC #### [facility] [address] [place] [address] Dr. Kali Haynes Platelet mean volume (Bld) [Entitic vol] 11.1 fL Normal 9.5-13.5 [facility] Comment on above: Performed By: #### C BC #### [facility] [address] [place] [address] Dr. Kali Haynes PLT 221 103/ul Normal 150-450 [facility] Comment on above: Performed By: #### C BC #### [facility] [address] [place] [address] Dr. Kali Haynes RBC 4.95 106/ul Normal 4.20-5.40 [facility] Comment on above: Performed By: #### C BC #### [facility] [address] [place] [address] Dr. Kali Haynes WBC 6.5 103/ul Normal 4.0-11.0 [facility] Comment on above: Performed By: #### C BC #### [facility] [address] [place] [address] Dr. Kali Haynes LIPID PROFILEon 02-24-2022 CHOL-HDL RATIO NORM SEE BELOW Normal [facility] Comment on above: Result Comment: 3.3 - 4.4 LOW RISK 4.4 - 7.1 AVERAGE RISK 7.1 - 11.0 MODERATE RISK >11.0 HIGH RISK Performed By: #### T SH, BMP, LIPID, ALT #### [facility] [address] [address] [address] Kali Haynes Cholesterol [Mass/Vol] 151 mg/dL Normal <=200 [facility] Comment on above: Performed By: #### T SH, BMP, LIPID, ALT #### [facility] [address] [address] [address] Kali Haynes Cholesterol in HDL [Mass/Vol] 39 mg/dL Critically low 40-60 [facility] Comment on above: Performed By: #### T SH, BMP, LIPID, ALT #### [facility] [address] [address] [address] Kali Haynes Cholesterol in LDL [Mass/Vol] 85.6 mg/dL Normal [facility] Comment on above: Performed By: #### T SH, BMP, LIPID, ALT #### [facility] [address] [address] [address] Kali Hanyes Cholesterol.total/Choles terol in HDL [Mass ratio] 3.9 {ratio} Normal [facility] Comment on above: Performed By: #### T SH, BMP, LIPID, ALT #### [facility] [address] [address] [address] Kali Haynes HDL NORMAL > or = 60 mg/dl - LOW CARDIOVASCULAR RISK <40 mg/dl - HIGH CARDIOVASCULAR RISK Normal [facility] Comment on above: Performed By: #### T SH, BMP, LIPID, ALT #### [facility] [address] [address] [address] Kali Haynse LDL CALC NORMAL SEE BELOW Normal [facility] Comment on above: Result Comment: <100 mg/dl OPTIMAL 100 - 129 mg/dl NEAR OR ABOVE OPTIMAL 130 - 159 mg/dl BORDERLINE HIGH 160 - 189 mg/dl HIGH >190 mg/dl VERY HIGH Performed By: #### T SH, BMP, LIPID, ALT #### [facility] [address] [address] [address] Kali Haynes Triglyceride [Mass/Vol] 132 mg/dL Normal <=150 [facility] Comment on above: Performed By: #### T SH, BMP, LIPID, ALT #### [facility] [address] [address] [address] Kali Haynes VLDL CALC 26.4 mg/dL Normal [facility] Comment on above: Performed By: #### T SH, BMP, LIPID, ALT #### [facility] [address] [address] [address] Kali Haynes PROF CHEM 8 (BAS METB)on Anion gap [Moles/Vol] 12.5 mmol/L Normal [facility] Comment on above: Performed By: #### T SH, BMP, LIPID, ALT #### [facility] [address] [address] [address] Kali Haynes Calcium [Mass/Vol] 9.4 mg/dL Normal 8.5-10.1 [facility] Comment on above: Performed By: #### T SH, BMP, LIPID, ALT #### [facility] [address] [place] [address] Dr. Kali Haynes Chloride [Moles/Vol] 103 mmol/L Normal 98-107 [facility] Comment on above: Performed By: #### T SH, BMP, LIPID, ALT #### [facility] [address] [address] [address] Kali Haynes CO2 [Moles/Vol] 26.3 mmol/L Normal 21.0-32.0 [facility] Comment on above: Performed By: #### T SH, BMP, LIPID, ALT #### [facility] [address] [address] [address] Kali Haynes Creatinine [Mass/Vol] 0.82 mg/dL Normal 0.55-1.02 [facility] Comment on above: Performed By: #### T SH, BMP, LIPID, ALT #### [facility] [address] [address] [address] Kali Haynes EGFR-AF SOUTH AFRICAN >60 Normal >=60 [facility] Comment on above: Performed By: #### T SH, BMP, LIPID, ALT #### [facility] [address] [address] [address] Kali Haynes EGFR-NON AF SOUTH AFRICAN >60 Normal >=60 [facility] Comment on above: Performed By: #### T SH, BMP, LIPID, ALT #### [facility] [address] [address] [address] Kali Haynes Glucose [Mass/Vol] 110 mg/dL Critically high 74-106 [facility] Comment on above: Performed By: #### T SH, BMP, LIPID, ALT #### [facility] [address] [address] [address] Kali Haynes Potassium [Moles/Vol] 3.8 mmol/L Normal 3.5-5.1 [facility] Comment on above: Performed By: #### T SH, BMP, LIPID, ALT #### [facility] [address] [place] [address] Dr. Kali Haynes Sodium [Moles/Vol] 138 mmol/L Normal 136-145 [facility] Comment on above: Performed By: #### T SH, BMP, LIPID, ALT #### [facility] [address] [place] [address] Dr. Kali Haynes Urea nitrogen [Mass/Vol] 17.0 mg/dL Normal 7.0-18.0 [facility] Comment on above: Performed By: #### T SH, BMP, LIPID, ALT #### [facility] [address] [place] [address] Dr. Kali aHynes Urea nitrogen/Creatinine [Mass ratio] 20.7 mg/mg Normal [facility] Comment on above: Performed By: #### T SH, BMP, LIPID, ALT #### [facility] [address] [place] [address] Dr. Kali Haynes SGPTon 02-24-2022 ALT [Catalytic activity/Vol] 36 U/L Normal 14-59 [facility] Comment on above: Performed By: #### T SH, BMP, LIPID, ALT #### [facility] [address] [place] [address] Dr. Kali Haynes TSHon 02-24-2022 TSH 4.788 uIU/mL Critically high 0.358-3.740 [facility] [place] [facility] Comment on above: Performed By: #### T SH, BMP, LIPID, ALT #### [facility] [address] [address] [address] Kali Haynes CBC AUTO DIFFon 08-21-2021 BASO # 0.0 103/ul Normal 0.0-0.1 [facility] Comment on above: Performed By: #### C BC #### [facility] [address] [place] [address] Dr. Kali Haynes Basophils/100 WBC (Bld) 0.5 % Normal 0.2-2.0 [facility] Comment on above: Performed By: #### C BC #### [facility] [address] [place] [address] Dr. Kali Haynes EO # 0.2 103/ul Normal 0.0-0.7 [facility] Comment on above: Performed By: #### C BC #### [facility] [address] [place] [address] Dr. Kali Haynes Eosinophils/100 WBC (Bld) 2.6 % Normal 0.9-7.0 [facility] Comment on above: Performed By: #### C BC #### [facility] [address] [place] [address] Dr. Kali Haynes Erythrocyte distribution width (RBC) [Ratio] 14.4 % Normal 11.0-15.0 [facility] Comment on above: Performed By: #### C BC #### [facility] [address] [place] [address] Dr. Kali Haynes Hematocrit (Bld) [Volume fraction] 40.4 % Normal 36.0-48.0 [facility] Comment on above: Performed By: #### C BC #### [facility] [address] [place] [address] Dr. Kali Haynes Hemoglobin (Bld) [Mass/Vol] 13.3 g/dL Normal 12.0-16.0 [facility] Comment on above: Performed By: #### C BC #### [facility] [address] [place] [address] Dr. Kali Haynes IG # 0.01 10e3/ul Normal 0.00-0.03 [facility] Comment on above: Performed By: #### C BC #### [facility] [address] [place] [address] Dr. Kali Haynes IG % 0.2 % Normal 0.0-0.5 [facility] Comment on above: Performed By: #### C BC #### [facility] [address] [place] [address] Dr. Kali Haynes LYMPH # 3.0 103/ul Normal 1.2-3.8 [facility] Comment on above: Performed By: #### C BC #### [facility] [address] [place] [address] Dr. Kali Haynes Lymphocytes/100 WBC (Bld) 48.6 % Normal 20.5-60.0 [facility] Comment on above: Performed By: #### C BC #### [facility] [address] [place] [address] Dr. Kali Haynes MANUAL DIFF REQ NO Normal [facility] Comment on above: Performed By: #### C BC #### [facility] [address] [place] [address] Dr. Kali Haynes MCH (RBC) [Entitic mass] 29.0 pg Normal 26.7-34.0 [facility] Comment on above: Performed By: #### C BC #### [facility] [address] [place] [address] Dr. Kali Haynes MCHC (RBC) [Mass/Vol] 32.9 g/dL Normal 29.9-35.2 [facility] Comment on above: Performed By: #### C BC #### [facility] [address] [place] [address] Dr. Kali Haynes MCV (RBC) [Entitic vol] 88.0 fL Normal 81.0-99.0 [facility] Comment on above: Performed By: #### C BC #### [facility] [address] [place] [address] Dr. Kali Haynes MONO # 0.5 103/ul Normal 0.3-0.8 [facility] Comment on above: Performed By: #### C BC #### [facility] [address] [place] [address] Dr. Kali Haynes Monocytes/100 WBC (Bld) 7.4 % Normal 1.7-12.0 [facility] Comment on above: Performed By: #### C BC #### [facility] [address] [place] [address] Dr. Kali Haynes NEUT # 2.5 103/ul Normal 1.4-6.5 [facility] Comment on above: Performed By: #### C BC #### [facility] [address] [place] [address] Dr. Kali Haynes Neutrophils/100 WBC (Bld) 40.7 % Critically low 43.0-75.0 [facility] Comment on above: Performed By: #### C BC #### [facility] [address] [place] [address] Dr. Kali Haynes Platelet mean volume (Bld) [Entitic vol] 11.3 fL Normal 9.5-13.5 [facility] Comment on above: Performed By: #### C BC #### [facility] [address] [place] [address] Dr. Kali Haynes PLT 218 103/ul Normal 150-450 [facility] Comment on above: Performed By: #### C BC #### [facility] [address] [place] [address] Dr. Kali Haynes RBC 4.59 106/ul Normal 4.20-5.40 [facility] Comment on above: Performed By: #### C BC #### [facility] [address] [place] [address] Dr. Kali Haynes WBC 6.2 103/ul Normal 4.0-11.0 [facility] Comment on above: Performed By: #### C BC #### [facility] [address] [place] [address] Dr. Kali Haynes Auth for Release of Medical Recordson 03-30-2020 Auth for Release of Medical Records [id number] #1.00CD:127 Normal [facility] Auth for Release of Medical Records [id number] #1.00CD:127 Normal [facility] Retail - Clinical Noteon Retail - Clinical Note [id number]# 1.00CD:127 Normal [facility] BASIC METABOLIC PANELon - Calcium [Mass/Vol] 9.4 mg/dL Normal 8.6-10.3 [facility] Comment on above: Order Comment: No: D o not add to previous draw Performed By: #### 0 0071, 64531, 41704 #### [facility] [address] [place] [id number], [facility] Chloride [Moles/Vol] 102 mmol/L Normal 98-107 [facility] Comment on above: Order Comment: No: D o not add to previous draw Performed By: #### 0 0071, 19924, 25090 #### [facility] [address] [place] [address], [place] CO2 [Moles/Vol] 27 mmol/L Normal 21-31 [facility] Comment on above: Order Comment: No: D o not add to previous draw Performed By: #### 0 0071, 25236, 36352 #### [facility] [address] [place] [address], [place] Creatinine [Mass/Vol] 0.63 mg/dL Normal 0.60-1.20 [facility] Comment on above: Order Comment: No: D o not add to previous draw Performed By: #### 0 0071, 95976, 04477 #### [facility] [address] [place] [address], [place] GFR/1.73 sq M predicted among blacks MDRD (S/P/Bld) [Vol rate/Area] mL/min/{1.73_m2} Normal >60 [facility] Comment on above: Order Comment: No: D o not add to previous draw Performed By: #### 0 0071, 67546, 27556 #### [facility] [address] [place] [address], [place] GFR/1.73 sq M predicted among non-blacks MDRD (S/P/Bld) [Vol rate/Area] mL/min/{1.73_m2} Normal >60 [facility] Comment on above: Order Comment: No: D o not add to previous draw Performed By: #### 0 0071, 60386, 73621 #### [facility] [address] [place] [address], [place] Glucose [Mass/Vol] 129 mg/dL High 70-100 [facility] Comment on above: Order Comment: No: D o not add to previous draw Performed By: #### 0 0071, 86863, 57908 #### [facility] [address] [place] [address], [place] Potassium [Moles/Vol] 3.2 mmol/L Low 3.5-5.1 [facility] Comment on above: Order Comment: No: D o not add to previous draw Performed By: #### 0 0071, 35684, 85615 #### [facility] [address] [place] [address], [place] Sodium [Moles/Vol] 137 mmol/L Normal 136-145 [facility] Comment on above: Order Comment: No: D o not add to previous draw Performed By: #### 0 0071, 98994, 55934 #### [facility] [address] [place] [address], [place] Urea nitrogen [Mass/Vol] 11 mg/dL Normal 7-25 [facility] Comment on above: Order Comment: No: D o not add to previous draw Performed By: #### 0 0071, 13526, 13873 #### [facility] [address] [place] [address], [place] CBC COMPLETE BLOOD COUNTon 0 11-16-2018 Erythrocyte distribution width (RBC) [Ratio] 15.2 % High 11.5-15.0 [facility] Comment on above: Order Comment: No: D o not add to previous draw Performed By: #### 0 0071, 36503, 45480 #### [facility] [address] [place] [id number], [facility] Hematocrit (Bld) [Volume fraction] 37.7 % Normal 36.0-45.0 [facility] Comment on above: Order Comment: No: D o not add to previous draw Performed By: #### 0 0071, 82685, 53682 #### [facility] [address] [place] [address], [facility] Hemoglobin (Bld) [Mass/Vol] 12.7 g/dL Normal 12.0-15.0 [facility] Comment on above: Order Comment: No: D o not add to previous draw Performed By: #### 0 0071, 27255, 45915 #### [facility] [address] [place] [address], [place] MCH (RBC) [Entitic mass] 28.7 pg Normal 27.0-33.0 [facility] Comment on above: Order Comment: No: D o not add to previous draw Performed By: #### 0 0071, 31350, 23716 #### [facility] [address] [place] [address], [facility] MCHC (RBC) [Mass/Vol] 33.7 g/dL Normal 32.0-35.0 [facility] Comment on above: Order Comment: No: D o not add to previous draw Performed By: #### 0 0071, 11306, 26135 #### [facility] [address] [place] [address], [place] MCV (RBC) [Entitic vol] 85.1 fL Normal 82.0-98.0 [facility] Comment on above: Order Comment: No: D o not add to previous draw Performed By: #### 0 0071, 90483, 57081 #### [facility] [address] [facility] [place] [address], [facility] Nucleated RBC/100 WBC (Bld) [Ratio] 0 % Normal 0-0 [facility] Comment on above: Order Comment: No: D o not add to previous draw Performed By: #### 0 0071, 79592, 52096 #### [facility] [address] [facility] [place] [address], [facility] PLAT CNT 237 10*3/uL Normal 150-400 [facility] Comment on above: Order Comment: No: D o not add to previous draw Performed By: #### 0 0071, 78479, 36128 #### [facility] [address] [facility] [place] [address], [facility] RBC (Bld) [#/Vol] 4.43 10*6/uL Normal 3.80-5.00 [facility] Comment on above: Order Comment: No: D o not add to previous draw Performed By: #### 0 0071, 78123, 56492 #### [facility] [address] [facility] [place] [address], [facility] WBC (Bld) [#/Vol] 10.34 10*3/uL Normal 4.00-10.60 [facility] Comment on above: Order Comment: No: D o not add to previous draw Performed By: #### 0 0071, 32923, 55026 #### [facility] [address] [facility]. [address] Cardiovascular Lab Reporton 11-16-2018 Cardiovascular Lab Report [facility] Patient Name: [facility] Epi MR #: [id number] Department of Physician: Isaura Ching M.D. Division of Service Date: 11/15/2018 Cardiology Birthdate: 1950 Adult Cardiovascular Room #: 3AB 125192 Services [facility] [address] [place] [address] Cardiovascular Laboratory Report FINAL IMPRESSIONS: 1. Mild [...] is most consistent with a type 2 mvs-TL-cqemqrdei myocardial infarction/supply-de ana mismatch. This does not represent an acute coronary syndrome and the patient does not require dual antiplatelet therapy. 2. Aggressive cardiovascular risk factor modification. 3. Optimization of medical management; given plaque disease, aspirin, auqrhfek-et-guel intensity statin therapy, a beta amr. If left ventricular hypertrophy is conformed, would [...] right internal jugular vein was obtained. A 6-Libyan 11 cm sheath was inserted without difficulty. [...] to access the right radial artery. A 6-Libyan Glidesheath was inserted without difficulty. Bilateral selective [...] Camilo M.D. Date Trans: 11/16/2018 09:01 Tressa/alisa [id number] Normal [facility] LIVER BATTERYon 11-16-2018 Albumin [Mass/Vol] 3.6 g/dL Normal 3.5-5.7 [facility] Comment on above: Order Comment: No: D o not add to previous draw Performed By: #### 0 0071, 93517, 20588 #### [facility] [address] [place] [address], [place] ALKALINE PHOSPH 54 IU/L Normal 34-104 [facility] Comment on above: Order Comment: No: D o not add to previous draw Performed By: #### 0 0071, 55697, 33590 #### [facility] [address] [place] [address], [place] ALT [Catalytic activity/Vol] 63 U/L High 7-52 [facility] Comment on above: Order Comment: No: D o not add to previous draw Performed By: #### 0 0071, 61750, 69034 #### [facility] [address] [place] [address], [place] AST [Catalytic activity/Vol] 19 U/L Normal 13-39 [facility] Comment on above: Order Comment: No: D o not add to previous draw Performed By: #### 0 0071, 31252, 83090 #### [facility] [address] [place] [address], [place] Bilirubin [Mass/Vol] 0.5 mg/dL Normal 0.3-1.0 [facility] Comment on above: Order Comment: No: D o not add to previous draw Performed By: #### 0 0071, 85797, 39871 #### [facility] [address] [place] [address], [place] Bilirubin.direct [Mass/Vol] 0.1 mg/dL Normal 0.0-0.2 [facility] Comment on above: Order Comment: No: D o not add to previous draw Performed By: #### 0 0071, 91467, 96252 #### [facility] [address] [place] [address], [place] Protein [Mass/Vol] 6.5 g/dL Normal 6.0-8.3 [facility] Comment on above: Order Comment: No: D o not add to previous draw Performed By: #### 0 0071, 97721, 46577 #### [facility] [address] [place] [address], [place] MAGNESIUM BLOODon 11-16-2018 Magnesium [Mass/Vol] 1.8 mg/dL Low 1.9-2.7 [facility] Comment on above: Order Comment: No: D o not add to previous draw Performed By: #### 0 0071, 73929, 22703 #### [facility] [address] [place] [address], [place] PHOSPHORUS BLOODon 9 Phosphate [Mass/Vol] 3.1 mg/dL Normal 2.5-5.0 [facility] Comment on above: Order Comment: No: D o not add to previous draw Performed By: #### 0 0071, 73900, 23915 #### [facility] [address] [place] [address], [place] BASIC METABOLIC PANELon 10-22 Calcium [Mass/Vol] 9.0 mg/dL Normal 8.6-10.3 [facility] Comment on above: Order Comment: No: D o not add to previous draw Performed By: #### 0 0071, 22426, 11601 #### [facility] [address] [place] [address], [place] Chloride [Moles/Vol] 103 mmol/L Normal 98-107 [facility] Comment on above: Order Comment: No: D o not add to previous draw Performed By: #### 0 0071, 48916, 82035 #### [facility] [address] [place] [address], [place] CO2 [Moles/Vol] 25 mmol/L Normal 21-31 [facility] Comment on above: Order Comment: No: D o not add to previous draw Performed By: #### 0 0071, 77202, 35647 #### [facility] [address] [place] [address], [place] Creatinine [Mass/Vol] 0.65 mg/dL Normal 0.60-1.20 [facility] Comment on above: Order Comment: No: D o not add to previous draw Performed By: #### 0 0071, 13434, 78246 #### [facility] [address] [place] [address], [place] GFR/1.73 sq M predicted among blacks MDRD (S/P/Bld) [Vol rate/Area] mL/min/{1.73_m2} Normal >60 [facility] Comment on above: Order Comment: No: D o not add to previous draw Performed By: #### 0 0071, 02578, 91617 #### [facility] [address] [place] [address], [place] GFR/1.73 sq M predicted among non-blacks MDRD (S/P/Bld) [Vol rate/Area] mL/min/{1.73_m2} Normal >60 [facility] Comment on above: Order Comment: No: D o not add to previous draw Performed By: #### 0 0071, 96131, 59438 #### [facility] [address] [place] [address], [place] Glucose [Mass/Vol] 192 mg/dL High 70-100 [facility] Comment on above: Order Comment: No: D o not add to previous draw Performed By: #### 0 0071, 22541, 60422 #### [facility] [address] [place] [address], [place] Potassium [Moles/Vol] 3.0 mmol/L Low 3.5-5.1 [facility] Comment on above: Order Comment: No: D o not add to previous draw Performed By: #### 0 0071, 55311, 21192 #### [facility] [address] [place] [address], [place] Sodium [Moles/Vol] 138 mmol/L Normal 136-145 [facility] Comment on above: Order Comment: No: D o not add to previous draw Performed By: #### 0 0071, 03523, 20544 #### [facility] [address] [place] [address], [place] Urea nitrogen [Mass/Vol] 10 mg/dL Normal 7-25 [facility] Comment on above: Order Comment: No: D o not add to previous draw Performed By: #### 0 0071, 97558, 17167 #### [facility] [address] [place] [address], [place] LIVER BATTERYon 11-15-2018 Albumin [Mass/Vol] 3.3 g/dL Low 3.5-5.7 [facility] Comment on above: Order Comment: No: D o not add to previous draw Performed By: #### 0 0071, 14015, 40349 #### [facility] [address] [place] [address], [place] ALKALINE PHOSPH 51 IU/L Normal 34-104 [facility] Comment on above: Order Comment: No: D o not add to previous draw Performed By: #### 0 0071, 53612, 34850 #### [facility] [address] [place] [address], [place] ALT [Catalytic activity/Vol] 70 U/L High 7-52 [facility] Comment on above: Order Comment: No: D o not add to previous draw Performed By: #### 0 0071, 07904, 00993 #### [facility] [address] [place] [address], [place] AST [Catalytic activity/Vol] 22 U/L Normal 13-39 [facility] Comment on above: Order Comment: No: D o not add to previous draw Performed By: #### 0 0071, 35223, 62824 #### [facility] [address] [place] [address], [place] Bilirubin [Mass/Vol] 0.4 mg/dL Normal 0.3-1.0 [facility] Comment on above: Order Comment: No: D o not add to previous draw Performed By: #### 0 0071, 61926, 56963 #### [facility] [address] Bilirubin.direct [Mass/Vol] 0.1 mg/dL Normal 0.0-0.2 [facility] Comment on above: Order Comment: No: D o not add to previous draw Performed By: #### 0 0071, 68879, 72493 #### [facility] [address] Protein [Mass/Vol] 6.2 g/dL Normal 6.0-8.3 [facility] Comment on above: Order Comment: No: D o not add to previous draw Performed By: #### 0 0071, 70415, 80270 #### [facility] [address] [facility]. [address] UFH HEPARIN ASSAYon 11-16-19 19 UNFRACTIONATED HEPARIN 0.71 IU/mL High 0.30-0.70 [facility] Comment on above: Result Comment: [place] roxaban and Apixaban will interfere with the anti Xa assay used to monitor UFH and LMWH. Performed By: #### 3 0965 #### [facility] [address] [facility]. [address] BASIC METABOLIC PANELon 10-22 Calcium [Mass/Vol] 8.9 mg/dL Normal 8.6-10.3 [facility] Comment on above: Order Comment: No: D o not add to previous draw Criteria for reflexing a culture was not met. Please call the lab at [phone] within 24 hours of collection time if culture is needed Performed By: #### 3 0965 #### [facility] [address] [facility] [place] [address], [facility] Chloride [Moles/Vol] 105 mmol/L Normal 98-107 [facility] Comment on above: Order Comment: No: D o not add to previous draw Criteria for reflexing a culture was not met. Please call the lab at 7631 within 24 hours of collection time if culture is needed Performed By: #### 3 0965 #### [facility] [address] [place] [address], [facility] CO2 [Moles/Vol] 25 mmol/L Normal 21-31 [facility] Comment on above: Order Comment: No: D o not add to previous draw Criteria for reflexing a culture was not met. Please call the lab at [phone] within 24 hours of collection time if culture is needed Performed By: #### 3 0965 #### [facility] [address] [place] [address], [facility] Creatinine [Mass/Vol] 0.64 mg/dL Normal 0.60-1.20 [facility] Comment on above: Order Comment: No: D o not add to previous draw Criteria for reflexing a culture was not met. Please call the lab at [phone] within 24 hours of collection time if culture is needed Performed By: #### 3 0965 #### [facility] [address] [place] [address], [facility] GFR/1.73 sq M predicted among blacks MDRD (S/P/Bld) [Vol rate/Area] mL/min/{1.73_m2} Normal >60 [facility] Comment on above: Order Comment: No: D o not add to previous draw Criteria for reflexing a culture was not met. Please call the lab at [phone] within 24 hours of collection time if culture is needed Performed By: #### 3 0965 #### [facility] [address] [place] [address], [facility] GFR/1.73 sq M predicted among non-blacks MDRD (S/P/Bld) [Vol rate/Area] mL/min/{1.73_m2} Normal >60 [facility] Comment on above: Order Comment: No: D o not add to previous draw Criteria for reflexing a culture was not met. Please call the lab at [phone] within 24 hours of collection time if culture is needed Performed By: #### 3 0965 #### [facility] [address] [facility] [place] [address], [facility] Glucose [Mass/Vol] 129 mg/dL High 70-100 [facility] Comment on above: Order Comment: No: D o not add to previous draw Criteria for reflexing a culture was not met. Please call the lab at [phone] within 24 hours of collection time if culture is needed Performed By: #### 3 0965 #### [facility] [address] [place] [address], [facility] Potassium [Moles/Vol] 3.6 mmol/L Normal 3.5-5.1 [facility] Comment on above: Order Comment: No: D o not add to previous draw Criteria for reflexing a culture was not met. Please call the lab at [phone] within 24 hours of collection time if culture is needed Performed By: #### 3 0965 #### [facility] [address] Sodium [Moles/Vol] 137 mmol/L Normal 136-145 [facility] Comment on above: Order Comment: No: D o not add to previous draw Criteria for reflexing a culture was not met. Please call the lab at 7668 within 24 hours of collection time if culture is needed Performed By: #### 3 0965 #### [facility] [address] Urea nitrogen [Mass/Vol] 11 mg/dL Normal 7-25 [facility] Comment on above: Order Comment: No: D o not add to previous draw Criteria for reflexing a culture was not met. Please call the lab at [phone] within 24 hours of collection time if culture is needed Performed By: #### 3 0965 #### [facility] [address] [place] [address], [facility] CBC W/DIFFon 11-14-2018 ABS BASOPHILS 0.0 10*3/uL Normal 0.0-0.2 [facility] Comment on above: Order Comment: No: D o not add to previous draw Criteria for reflexing a culture was not met. Please call the lab at 7668 within 24 hours of collection time if culture is needed Performed By: #### 3 0965 #### [facility] [address] [place] [address], [facility] ABS IMM GRANS 0.0 10*3/uL Normal 0.0-0.2 [facility] Comment on above: Order Comment: No: D o not add to previous draw Criteria for reflexing a culture was not met. Please call the lab at 7668 within 24 hours of collection time if culture is needed Performed By: #### 3 0965 #### [facility] [address] [place] [address], [facility] ABS NEUTROPHILS 5.0 10*3/uL Normal 1.6-7.6 [facility] Comment on above: Order Comment: No: D o not add to previous draw Criteria for reflexing a culture was not met. Please call the lab at 7668 within 24 hours of collection time if culture is needed Performed By: #### 3 0965 #### [facility] [address] [place] [address], [facility] Basophils/100 WBC (Bld) 0.1 % Normal 0.0-1.0 T jose [facility] Comment on above: Order Comment: No: D o not add to previous draw Criteria for reflexing a culture was not met. Please call the lab at [phone] within 24 hours of collection time if culture is needed Performed By: #### 3 0965 #### [facility] [address] [place] [address], [facility] Eosinophils (Bld) [#/Vol] 0.2 10*3/uL Normal 0.0-0.5 [facility] Comment on above: Order Comment: No: D o not add to previous draw Criteria for reflexing a culture was not met. Please call the lab at 7668 within 24 hours of collection time if culture is needed Performed By: #### 3 0965 #### [facility] [address] [place] [address], [facility] Eosinophils/100 WBC (Bld) 1.8 % Normal 0.0-6.0 [facility] Comment on above: Order Comment: No: D o not add to previous draw Criteria for reflexing a culture was not met. Please call the lab at 7668 within 24 hours of collection time if culture is needed Performed By: #### 3 0965 #### [facility] [address] Erythrocyte distribution width (RBC) [Ratio] 15.9 % High 11.5-15.0 [facility] Comment on above: Order Comment: No: D o not add to previous draw Criteria for reflexing a culture was not met. Please call the lab at 7668 within 24 hours of collection time if culture is needed Performed By: #### 3 0965 #### [facility] [address] Hematocrit (Bld) [Volume fraction] 36.8 % Normal 36.0-45.0 [facility] Comment on above: Order Comment: No: D o not add to previous draw Criteria for reflexing a culture was not met. Please call the lab at 7668 within 24 hours of collection time if culture is needed Performed By: #### 3 0965 #### [facility] [address] Hemoglobin (Bld) [Mass/Vol] 12.1 g/dL Normal 12.0-15.0 [facility] Comment on above: Order Comment: No: D o not add to previous draw Criteria for reflexing a culture was not met. Please call the lab at 7668 within 24 hours of collection time if culture is needed Performed By: #### 3 0965 #### [facility] [address] [place] [address], [facility] IMMATURE GRANS 0.4 % Normal 0.0-1.0 [facility] Comment on above: Order Comment: No: D o not add to previous draw Criteria for reflexing a culture was not met. Please call the lab at 7668 within 24 hours of collection time if culture is needed Performed By: #### 3 0965 #### [facility] [address] [place] [place] [id number], [facility] Lymphocytes (Bld) [#/Vol] 4.7 10*3/uL High 1.2-4.0 [facility] Comment on above: Order Comment: No: D o not add to previous draw Criteria for reflexing a culture was not met. Please call the lab at 7668 within 24 hours of collection time if culture is needed Performed By: #### 3 0965 #### [facility] [address] [place] [address], [facility] Lymphocytes/100 WBC (Bld) 45.2 % High 20.0-45.0 [facility] Comment on above: Order Comment: No: D o not add to previous draw Criteria for reflexing a culture was not met. Please call the lab at 7668 within 24 hours of collection time if culture is needed Performed By: #### 3 0965 #### [facility] [address] [place] [address], [facility] MCH (RBC) [Entitic mass] 28.7 pg Normal 27.0-33.0 [facility] Comment on above: Order Comment: No: D o not add to previous draw Criteria for reflexing a culture was not met. Please call the lab at 7668 within 24 hours of collection time if culture is needed Performed By: #### 3 0965 #### [facility] [address] [place] [address], [facility] MCHC (RBC) [Mass/Vol] 32.9 g/dL Normal 32.0-35.0 [facility] Comment on above: Order Comment: No: D o not add to previous draw Criteria for reflexing a culture was not met. Please call the lab at 7668 within 24 hours of collection time if culture is needed Performed By: #### 3 0965 #### [facility] [address] [place] [address] [place] [id number], [facility] MCV (RBC) [Entitic vol] 87.2 fL Normal 82.0-98.0 Cherie garcia [facility] Comment on above: Order Comment: No: D o not add to previous draw Criteria for reflexing a culture was not met. Please call the lab at 7668 within 24 hours of collection time if culture is needed Performed By: #### 3 0965 #### [facility] [address] [place] [address], [facility] Monocytes (Bld) [#/Vol] 0.5 10*3/uL Normal 0.1-1.0 [facility] Comment on above: Order Comment: No: D o not add to previous draw Criteria for reflexing a culture was not met. Please call the lab at 7668 within 24 hours of collection time if culture is needed Performed By: #### 3 0965 #### [facility] [address] [facility] [place] [address], [facility] MONOS 4.5 % Low 5.0-12.0 [facility] Comment on above: Order Comment: No: D o not add to previous draw Criteria for reflexing a culture was not met. Please call the lab at 7668 within 24 hours of collection time if culture is needed Performed By: #### 3 0965 #### [facility] [address] [facility] [place] [address], [facility] Neutrophils/100 WBC (Bld) 48.0 % Normal 40.0-72.0 [facility] Comment on above: Order Comment: No: D o not add to previous draw Criteria for reflexing a culture was not met. Please call the lab at 7668 within 24 hours of collection time if culture is needed Performed By: #### 3 0965 #### [facility] [address] [place] [id number], [facility] Nucleated RBC/100 WBC (Bld) [Ratio] 0 % Normal 0-0 [facility] Comment on above: Order Comment: No: D o not add to previous draw Criteria for reflexing a culture was not met. Please call the lab at 7668 within 24 hours of collection time if culture is needed Performed By: #### 3 0965 #### [facility] [address] PLAT CNT 193 10*3/uL Normal 150-400 [facility] Comment on above: Order Comment: No: D o not add to previous draw Criteria for reflexing a culture was not met. Please call the lab at 7668 within 24 hours of collection time if culture is needed Performed By: #### 3 0965 #### [address] RBC (Bld) [#/Vol] 4.22 10*6/uL Normal 3.80-5.00 [facility] Comment on above: Order Comment: No: D o not add to previous draw Criteria for reflexing a culture was not met. Please call the lab at 7668 within 24 hours of collection time if culture is needed Performed By: #### 3 0965 #### [address] WBC (Bld) [#/Vol] 10.38 10*3/uL Normal 4.00-10.60 [facility] Comment on above: Order Comment: No: D o not add to previous draw Criteria for reflexing a culture was not met. Please call the lab at 7668 within 24 hours of collection time if culture is needed Performed By: #### 3 0965 #### [address] CHEST AND LATERALon 11-15-19 CHEST AND LATERAL [facility] Department of Radiology [address] [place] [id number] Patient Name: EPI DAILEY : 1950 Sex: F Age: Race: White Pt. Location: [id number] Patient Status: I Ordered Date: 11/14/2018 8:00:00 [...] findings. Electronically signed by:Jamey Hamilton. Transcribed by: [email or web address], User Resident: GAGAN GREENE Electronically Signed by: JAMEY HAMILTON @ 11/15/2018 09:14 AM I personally read this/these film(s) with this resident Normal [facility] Comment on above: Order Comment: No: D o not add to previous draw Criteria for reflexing a culture was not met. Please call the lab at [phone] within 24 hours of collection time if culture is needed LIPID PROFILEon 11-14-2018 Cholesterol [Mass/Vol] 113 mg/dL Low 120-200 Th e [facility] Comment on above: Order Comment: [...] Risk Performed By: #### 3 0965 #### [facility] [address] [place] [address], [facility] Cholesterol in HDL [Mass/Vol] 29 mg/dL Normal 23-92 [facility] Comment on above: Order Comment: [...] Risk Performed By: #### 3 0965 #### [facility] [address] [facility] [place] [address], [facility] Cholesterol in LDL [Mass/Vol] 61 mg/dL Normal 0-130 [facility] Comment on above: Order Comment: No: D o not add to previous draw Criteria for reflexing a culture was not met. Please call the lab at [phone] within 24 hours of collection time if culture is needed Result Comment: LDL IS A CALCULATION LDL IS ONLY VALID IF THE TRIG IS LESS THAN 400. Performed By: #### 3 0965 #### [facility] [address] [place] [address], [facility] Cholesterol.total/Choles terol in HDL [Mass ratio] 3.9 {ratio} Normal 0.0-4.5 [facility] Comment on above: Order Comment: No: D o not add to previous draw Criteria for reflexing a culture was not met. Please call the lab at 7668 within 24 hours of collection time if culture is needed Performed By: #### 3 0965 #### [facility] [address] [place] [address], [facility] NON-HDL CHOLESTEROL 84 mg/dL Normal [facility] Comment on above: Order Comment: No: D o not add to previous draw Criteria for reflexing a culture was not met. Please call the lab at 7668 within 24 hours of collection time if culture is needed Performed By: #### 3 0965 #### [address] Triglyceride [Mass/Vol] 113 mg/dL Normal 40-149 T [facility] Comment on above: Order Comment: [...] RISK Performed By: #### 3 0965 #### [address] VLDL CHOL 23 mg/dL Normal 0-40 [facility] Comment on above: Order Comment: No: D o not add to previous draw Criteria for reflexing a culture was not met. Please call the lab at 7668 within 24 hours of collection time if culture is needed Performed By: #### 3 0965 #### [address] MAGNESIUM BLOODon 11-14-2018 Magnesium [Mass/Vol] 2.0 mg/dL Normal 1.9-2.7 [facility] Comment on above: Order Comment: No: D o not add to previous draw Criteria for reflexing a culture was not met. Please call the lab at 7668 within 24 hours of collection time if culture is needed Performed By: #### 3 0965 #### [address] MRI LUMBAR SPINE W WO CONTRA STon 11-14-2018 MRI LUMBAR SPINE W WO CONTRAST [facility] Department of Radiology [address] [place] [id number] Patient Name: EPI DAILEY : 1950 Sex: F Age: Race: White Pt. Location: [id number] Patient Status: I Ordered Date: 11/13/2018 7:45:00 [...] spine. Electronically signed by:Kunal Bloom. Transcribed by: [email or web address], User Resident: Electronically Signed by: KUNAL BLOOM @ 11/15/2018 02:54 PM Normal [facility] Comment on above: Order Comment: No: D o not add to previous draw PROTHROMBIN TIMEon 9 INR Coag (PPP) [Relative time] 1.04 {INR} Normal 0.91-1.16 [facility] Comment on above: Order Comment: [...] 1995;[id number]. Performed By: #### 3 0965 #### [facility] [address] PT Coag (PPP) [Time] 13.6 s Normal 12.3-14.8 [facility] Comment on above: Order Comment: [...] SAMPLING. Performed By: #### 3 0965 #### [facility] [address] TROPONIN-Ion 11-14-2018 Troponin I.cardiac [Mass/Vol] 1.03 ng/mL Critically high 0.00-0.04 [facility] Comment on above: Order Comment: No: D o not add to previous draw Result Comment: M-AK EVIOUS CRITICAL RESULT REFERENCE RANGES: 0.00 - 0.04 ng/ml NORMAL 0.05 - 0.50 ng/ml INDETERMINATE > 0.50 ng/ml CONSISTENT WITH AN M.I. Performed By: #### 3 5200 #### [facility] [address] UFH HEPARIN ASSAYon 11-15-19 19 UNFRACTIONATED HEPARIN 0.21 IU/mL Low 0.30-0.70 [facility] Comment on above: Result Comment: [place] roxaban and Apixaban will interfere with the anti Xa assay used to monitor UFH and LMWH. Performed By: #### 3 0965 #### [facility] [address] UNFRACTIONATED HEPARIN 0.26 IU/mL Low 0.30-0.70 [facility] Comment on above: Result Comment: [place] roxaban and Apixaban will interfere with the anti Xa assay used to monitor UFH and LMWH. Performed By: #### 3 0965 #### [facility] [address] [place] [id number], [facility] UNFRACTIONATED HEPARIN 0.21 IU/mL Low 0.30-0.70 Th [facility] Comment on above: Result Comment: [place]ora roxaban and Apixaban will interfere with the anti Xa assay used to monitor UFH and LMWH. Performed By: #### 3 0965 #### [facility] [address] [place] [address], [facility] UNFRACTIONATED HEPARIN <0.10 Critically low 0.30-0.70 [facility] Comment on above: Result Comment: [place]ora roxaban and Apixaban will interfere with the anti Xa assay used to monitor UFH and LMWH. RESULTS CHECKED AND CALLED. ACCURATELY READ BACK BY WILIAM DOMINGO RN @0058 Performed By: #### 3 0477 #### [facility] [address] [place] [id number], [facility] BASIC METABOLIC PANELon 08-2 Calcium [Mass/Vol] 9.2 mg/dL Normal 8.6-10.3 [facility] Comment on above: Order Comment: No: D o not add to previous draw Performed By: #### 0 0071, 26370, 73725 #### [facility] [address] [place] [address], [facility] Chloride [Moles/Vol] 103 mmol/L Normal 98-107 [facility] Comment on above: Order Comment: No: D o not add to previous draw Performed By: #### 0 0071, 46531, 99075 #### [facility] [address] [place] [address], [place] CO2 [Moles/Vol] 22 mmol/L Normal 21-31 [facility] Comment on above: Order Comment: No: D o not add to previous draw Performed By: #### 0 0071, 99655, 91516 #### [facility] [address] [place] [address], [place] Creatinine [Mass/Vol] 0.74 mg/dL Normal 0.60-1.20 [facility] Comment on above: Order Comment: No: D o not add to previous draw Performed By: #### 0 0071, 44584, 66065 #### [facility] [address] [place] [address], [place] GFR/1.73 sq M predicted among blacks MDRD (S/P/Bld) [Vol rate/Area] mL/min/{1.73_m2} Normal >60 [facility] Comment on above: Order Comment: No: D o not add to previous draw Performed By: #### 0 0071, 71916, 07483 #### [facility] [address] [place] [address], [place] GFR/1.73 sq M predicted among non-blacks MDRD (S/P/Bld) [Vol rate/Area] mL/min/{1.73_m2} Normal >60 [facility] Comment on above: Order Comment: No: D o not add to previous draw Performed By: #### 0 0071, 16242, 22268 #### [facility] [address] [place] [address], [place] Glucose [Mass/Vol] 116 mg/dL High 70-100 [facility] Comment on above: Order Comment: No: D o not add to previous draw Performed By: #### 0 0071, 35529, 42390 #### [facility] [address] [place] [address], [place] Potassium [Moles/Vol] 3.5 mmol/L Normal 3.5-5.1 [facility] Comment on above: Order Comment: No: D o not add to previous draw Performed By: #### 0 0071, 34207, 62596 #### [facility] [address] [place] [address], [place] Sodium [Moles/Vol] 137 mmol/L Normal 136-145 [facility] Comment on above: Order Comment: No: D o not add to previous draw Performed By: #### 0 0071, 85602, 96472 #### [facility] [address] Urea nitrogen [Mass/Vol] 14 mg/dL Normal 7-25 [facility] Comment on above: Order Comment: No: D o not add to previous draw Performed By: #### 0 0071, 37572, 05905 #### [facility] [address] BNP (B-TYPE NATRIURETIC PEPT NICK)on 11-13-2018 Natriuretic peptide B (Bld) [Mass/Vol] 695 pg/mL High 0-100 [facility] Comment on above: Order Comment: Yes: Add to Previous draw if able Result Comment: Give n the appropriate clinical setting a BNP result of >100 pg/mL indicates congestive heart failure. Performed By: #### 8 5123, 92846 #### [facility] [address] CBC W/DIFFon 11-13-2018 ABS BASOPHILS 0.0 10*3/uL Normal 0.0-0.2 [facility] Comment on above: Performed By: #### 5 0103 #### [facility] [address] ABS IMM GRANS 0.1 10*3/uL Normal 0.0-0.2 [facility] Comment on above: Performed By: #### 5 0103 #### [facility] [address] ABS NEUTROPHILS 9.9 10*3/uL High 1.6-7.6 [facility] Comment on above: Performed By: #### 5 0103 #### [facility] [address] Basophils/100 WBC (Bld) 0.1 % Normal 0.0-1.0 [facility] Comment on above: Performed By: #### 5 0103 #### [facility] [address] [facility] [address] Eosinophils (Bld) [#/Vol] 0.0 10*3/uL Normal 0.0-0.5 [facility] Comment on above: Performed By: #### 3 #### [facility] 3000 [facility] [place] [address], [facility] Eosinophils/100 WBC (Bld) 0.2 % Normal 0.0-6.0 [facility] Comment on above: Performed By: #### 3 #### [facility] [address] Erythrocyte distribution width (RBC) [Ratio] 15.9 % High 11.5-15.0 [facility] Comment on above: Performed By: #### 3 #### [facility] [address] Hematocrit (Bld) [Volume fraction] 36.8 % Normal 36.0-45.0 [facility] Comment on above: Performed By: #### 102 #### [facility] [address] Hemoglobin (Bld) [Mass/Vol] 12.4 g/dL Normal 12.0-15.0 [facility] Comment on above: Performed By: #### 5 3 #### [facility] [address] IMMATURE GRANS 0.6 % Normal 0.0-1.0 [facility] Comment on above: Performed By: #### 102 #### [facility] [address] [place] [address], [facility] Lymphocytes (Bld) [#/Vol] 5.0 10*3/uL High 1.2-4.0 [facility] Comment on above: Performed By: #### 3 #### [facility] [address] [facility] [place] [address], [facility] Lymphocytes/100 WBC (Bld) 32.2 % Normal 20.0-45.0 [facility] Comment on above: Performed By: #### 5 3 #### [facility] [address] [facility] [place] [address], [facility] MCH (RBC) [Entitic mass] 28.8 pg Normal 27.0-33.0 [facility] Comment on above: Performed By: #### 5 3 #### [facility] [address] [facility] [place] [address], [facility] MCHC (RBC) [Mass/Vol] 33.7 g/dL Normal 32.0-35.0 [facility] Comment on above: Performed By: #### 5 3 #### [facility] [address] [facility] [place] [address], [facility] MCV (RBC) [Entitic vol] 85.6 fL Normal 82.0-98.0 [facility] Comment on above: Performed By: #### 5 3 #### [facility] [address] [facility] [place] [address], [facility] Monocytes (Bld) [#/Vol] 0.5 10*3/uL Normal 0.1-1.0 [facility] Comment on above: Performed By: #### 5 3 #### [facility] [address] [place] [address], [facility] MONOS 3.3 % Low 5.0-12.0 [facility] Comment on above: Performed By: #### 5 3 #### [facility] [address] [facility] [place] [address], [facility] Neutrophils/100 WBC (Bld) 63.6 % Normal 40.0-72.0 [facility] Comment on above: Performed By: #### 5 3 #### [facility] [address] [place] [address], [facility] Nucleated RBC/100 WBC (Bld) [Ratio] 0 % Normal 0-0 [facility] Comment on above: Performed By: #### 5 0103 #### [facility] [address] [place] [address], [place] PLAT CNT 213 10*3/uL Normal 150-400 [facility] Comment on above: Performed By: #### 5 0103 #### [facility] [address] [place] [address], [facility] RBC (Bld) [#/Vol] 4.30 10*6/uL Normal 3.80-5.00 [facility] Comment on above: Performed By: #### 5 0103 #### [facility] [address] [place] [address], [facility] WBC (Bld) [#/Vol] 15.51 10*3/uL High 4.00-10.60 [facility] Comment on above: Performed By: #### 5 0103 #### [facility] [address] [place] [address], [facility] HEMOGLOBIN A1Con 11-13-2018 HbA1c (Bld) [Mass fraction] 117 mg/dL Normal 70-126 [facility] Comment on above: Order Comment: Yes: Add to Previous draw if able Performed By: #### 8 5123, 37711 #### [facility] [address] [place] [address], [facility] HbA1c (Bld) [Mass fraction] 5.7 % Normal 4.0-6.0 [facility] Comment on above: Order Comment: Yes: Add to Previous draw if able Performed By: #### 8 5063, 08652 #### [facility] [address] [place] [address], [place] LIVER BATTERYon 11-13-2018 Albumin [Mass/Vol] 3.7 g/dL Normal 3.5-5.7 [facility] Comment on above: Order Comment: No: D o not add to previous draw Performed By: #### 0 0071, 35743, 52691 #### [facility] [address] [place] [address], [place] ALKALINE PHOSPH 61 IU/L Normal 34-104 [facility] Comment on above: Order Comment: No: D o not add to previous draw Performed By: #### 0 0071, 16428, 80181 #### [facility] [address] [place] [address], [place] ALT [Catalytic activity/Vol] 156 U/L High 7-52 [facility] Comment on above: Order Comment: No: D o not add to previous draw Performed By: #### 0 0071, 41517, 90052 #### [facility] [address] [place] [address], [place] AST [Catalytic activity/Vol] 62 U/L High 13-39 [facility] Comment on above: Order Comment: No: D o not add to previous draw Performed By: #### 0 0071, 07369, 59721 #### [facility] [address] [place] [address], [place] Bilirubin [Mass/Vol] 0.5 mg/dL Normal 0.3-1.0 [facility] Comment on above: Order Comment: No: D o not add to previous draw Performed By: #### 0 0071, 58143, 86577 #### [facility] [address] [place] [address], [place] Bilirubin.direct [Mass/Vol] 0.1 mg/dL Normal 0.0-0.2 [facility] Comment on above: Order Comment: No: D o not add to previous draw Performed By: #### 0 0071, 40733, 64842 #### [facility] [address] [place] [address], [place] Protein [Mass/Vol] 6.8 g/dL Normal 6.0-8.3 [facility] Comment on above: Order Comment: No: D o not add to previous draw Performed By: #### 0 0071, 37171, 18982 #### [facility] [address] [place] [address], [facility] TROPONIN-Ion 11-13-2018 Troponin I.cardiac [Mass/Vol] 1.42 ng/mL Critically high 0.00-0.04 [facility] Comment on above: Order Comment: No: D o not add to previous draw Result Comment: M-AK EVIOUS CRITICAL RESULT REFERENCE RANGES: 0.00 - 0.04 ng/ml NORMAL 0.05 - 0.50 ng/ml INDETERMINATE > 0.50 ng/ml CONSISTENT WITH AN M.I. Performed By: #### 3 5200 #### [facility] [address] [facility] [place] [address], [facility] Troponin I.cardiac [Mass/Vol] 1.12 ng/mL Critically high 0.00-0.04 [facility] Comment on above: Order Comment: No: D o not add to previous draw Result Comment: M-CR ITICAL RESULT(S) REVIEWED, CALLED TO AND READ BACK BY MONICA HERNANDEZ RN @ 2000 ON 11-13-18 REFERENCE RANGES: 0.00 - 0.04 ng/ml NORMAL 0.05 - 0.50 ng/ml INDETERMINATE > 0.50 ng/ml CONSISTENT WITH AN M.I. Performed By: #### 0 0071, 16952, 81688 #### [facility] [address] [place] [address], [facility] URINALYSIS REFLEXon 11-14-19 19 Appearance (U) CLEAR Normal CLEAR [facility] Comment on above: Order Comment: No: D o not add to previous draw Criteria for reflexing a culture was not met. Please call the lab at [phone] within 24 hours of collection time if culture is needed Performed By: #### 3 0061 #### [facility] [address] [place] [address], [facility] Bilirubin [Mass/Vol] Negative Normal NEGATIVE [facility] Comment on above: Order Comment: No: D o not add to previous draw Criteria for reflexing a culture was not met. Please call the lab at [phone] within 24 hours of collection time if culture is needed Performed By: #### 3 0965 #### [facility] [address] [place] [address], [place] BLOOD Negative Normal NEGATIVE [facility] Comment on above: Order Comment: No: D o not add to previous draw Criteria for reflexing a culture was not met. Please call the lab at [phone] within 24 hours of collection time if culture is needed Performed By: #### 3 0965 #### [facility] [address] [place] [address], [place] Color (U) YELLOW Abnormal YELLOW [facility] Comment on above: Order Comment: No: D o not add to previous draw Criteria for reflexing a culture was not met. Please call the lab at [phone] within 24 hours of collection time if culture is needed Performed By: #### 3 0965 #### [facility] [address] [place] [address], [place] Glucose [Mass/Vol] Negative Normal NEGATIVE [facility] Comment on above: Order Comment: No: D o not add to previous draw Criteria for reflexing a culture was not met. Please call the lab at [phone] within 24 hours of collection time if culture is needed Performed By: #### 3 0965 #### [facility] [address] [place] [address], [place] KETONE Negative Normal NEGATIVE [facility] Comment on above: Order Comment: No: D o not add to previous draw Criteria for reflexing a culture was not met. Please call the lab at [phone] within 24 hours of collection time if culture is needed Performed By: #### 3 0965 #### [facility] [address] [place] [address], [place] LEUK EMMANUELLE Negative Normal NEGATIVE [facility] Comment on above: Order Comment: No: D o not add to previous draw Criteria for reflexing a culture was not met. Please call the lab at [phone] within 24 hours of collection time if culture is needed Performed By: #### 3 0965 #### [facility] [address] [facility] [place] [address], [facility] MICRO NOT DONE negative chemical reactions unless requested in original order Normal [facility] Comment on above: Order Comment: No: D o not add to previous draw Criteria for reflexing a culture was not met. Please call the lab at [phone] within 24 hours of collection time if culture is needed Performed By: #### 3 0965 #### [facility] [address] [place] [address], [facility] Nitrite Ql (U) Negative Normal NEGATIVE [facility] Comment on above: Order Comment: No: D o not add to previous draw Criteria for reflexing a culture was not met. Please call the lab at [phone] within 24 hours of collection time if culture is needed Performed By: #### 3 0965 #### [facility] [address] [facility] [place] [address], [facility] pH (Bld) 6.0 Normal 5.0-8.0 [facility] Comment on above: Order Comment: No: D o not add to previous draw Criteria for reflexing a culture was not met. Please call the lab at [phone] within 24 hours of collection time if culture is needed Performed By: #### 3 0965 #### [facility] [address] [facility] [place] [address], [facility] Protein (U) [Mass/Vol] Negative Normal NEGATIVE [facility] Comment on above: Order Comment: No: D o not add to previous draw Criteria for reflexing a culture was not met. Please call the lab at [phone] within 24 hours of collection time if culture is needed Performed By: #### 3 0965 #### [facility] [address] [place] [id number], [facility] SPEC GRAV 1.009 Low 1.015-1.020 [facility] Comment on above: Order Comment: No: D o not add to previous draw Criteria for reflexing a culture was not met. Please call the lab at [phone] within 24 hours of collection time if culture is needed Performed By: #### 3 0965 #### [facility] [address] [place] [address], [facility] Vital Signs Date Time Vital Sign Value Performing Clinician Facility 11-22-2024 14:44-0400 Body height 162.56 cm Al Ball DO Work Phone: [facility] 11-22-2024 14:44-0400 Body mass index (BMI) [Ratio] 27.3 kg/m2 Al Ball DO Work Phone: [facility] 11-22-2024 14:44-0400 Body weight 72.12 kg Al Ball DO Work Phone: [facility] 11-22-2024 14:44-0400 Diastolic blood pressure 75 mm[Hg] Al Ball DO Work Phone: [facility] 11-22-2024 14:44-0400 Heart rate 82 /min Al Ball DO Work Phone: [facility] 11-22-2024 14:44-0400 Respiratory rate 12 /min Al Ball DO Work Phone: [facility] 11-22-2024 14:44-0400 Systolic blood pressure 192 mm[Hg] Al Ball DO Work Phone: [facility] 09-20-2024 15:03-0400 Body height 162.56 cm Al Ball DO Work Phone: [facility] 09-20-2024 15:03-0400 Body mass index (BMI) [Ratio] 27.5 kg/m2 Al Ball DO Work Phone: [facility] 09-20-2024 15:03-0400 Body weight 72.68 kg Al Ball DO Work Phone: [facility] 09-20-2024 15:03-0400 Diastolic blood pressure 74 mm[Hg] Al Ball DO Work Phone: [facility] 09-20-2024 15:03-0400 Heart rate 76 /min Al Ball DO Work Phone: [facility] 09-20-2024 15:03-0400 Respiratory rate 12 /min Al Ball DO Work Phone: [facility] 09-20-2024 15:03-0400 Systolic blood pressure 192 mm[Hg] Al Ball DO Work Phone: [facility] 07-29-2024 09:43-0400 Body height 162.56 cm Al Ball DO Work Phone: [facility] 07-29-2024 09:43-0400 Body mass index (BMI) [Ratio] 27.4 kg/m2 Al Ball DO Work Phone: [facility] 07-29-2024 09:43-0400 Body weight 72.57 kg Al Ball DO Work Phone: [facility] 07-29-2024 09:43-0400 Diastolic blood pressure 92 mm[Hg] Al Ball DO Work Phone: [facility] 07-29-2024 09:43-0400 Heart rate 85 /min Al Ball DO Work Phone: [facility] 07-29-2024 09:43-0400 Respiratory rate 12 /min Al Ball DO Work Phone: [facility] 07-29-2024 09:43-0400 Systolic blood pressure 197 mm[Hg] Al Ball DO Work Phone: [facility] 04-29-2024 11:43-0500 Body height 162.56 cm [facility] 04-29-2024 11:43-0500 Body mass index (BMI) [Ratio] 27.3 kg/m2 [facility] 04-29-2024 11:43-0500 Body weight 72.29 kg [facility] 04-29-2024 11:43-0500 Diastolic blood pressure 81 mm[Hg] [facility] 04-29-2024 11:43-0500 Heart rate 92 /min [facility] 04-29-2024 11:43-0500 Respiratory rate 12 /min [facility] 04-29-2024 11:43-0500 Systolic blood pressure 180 mm[Hg] [facility] 03-14-2024 11:34-0500 Body height 162.56 cm [facility] 03-14-2024 11:34-0500 Body mass index (BMI) [Ratio] 27.6 kg/m2 [facility] 03-14-2024 11:34-0500 Body weight 73.02 kg [facility] 03-14-2024 11:34-0500 Diastolic blood pressure 75 mm[Hg] [facility] 03-14-2024 11:34-0500 Heart rate 83 /min [facility] 03-14-2024 11:34-0500 Respiratory rate 12 /min [facility] 03-14-2024 11:34-0500 Systolic blood pressure 150 mm[Hg] [facility] 05-11-2023 13:30-0500 Body height 162.56 cm [facility] 05-11-2023 13:30-0500 Body mass index (BMI) [Ratio] 27.6 kg/m2 [facility] 05-11-2023 13:30-0500 Body weight 73.02 kg [facility] 05-11-2023 13:30-0500 Diastolic blood pressure 72 mm[Hg] [facility] 05-11-2023 13:30-0500 Heart rate 84 /min [facility] 05-11-2023 13:30-0500 SaO2% (BldA) [Mass fraction] 97 % [facility] 05-11-2023 13:30-0500 Systolic blood pressure 168 mm[Hg] [facility] 02-27-2023 11:00-0500 Body height 162.56 cm Al Ball Other [facility] 02-27-2023 11:00-0500 Body mass index (BMI) [Ratio] 26.43 kg/m2 Al Ball Other [facility] Other 02-27-2023 11:00-0500 Body weight 69.85 kg Al Soto Other [facility] 02-27-2023 11:00-0500 Diastolic blood pressure 72 mm[Hg] Al Soto Other [facility] 02-27-2023 11:00-0500 Respiratory rate 18 /min Al Soto Other [facility] Other 02-27-2023 11:00-0500 Systolic blood pressure 190 mm[Hg] Al Soto Other [facility] Encounters Encounter Date Encounter Type Care Provider Facility Start: 11-22-2024 End: 11-22-2024 ambulatory Al Soto DO Work Phone: [facility] Work Phone: Start: 11-22-2024 End: 11-22-2024 Patient encounter procedure Al Soto DO -LUIS FERNANDO Soto [facility] Work Phone: Start: 10-31-2024 Non-patient / Non-visit Al boucher DO -[facility] Work Phone: Start: 10-28-2024 Non-patient / Non-visit Marcela plata MD -[facility] Work Phone: Start: 09-22-2024 End: 09-22-2024 ambulatory STEVIE DELGADO [facility] Start: 09-22-2024 End: 09-22-2024 Subsequent hospital visit by physician Al Charles PERDOMO Work Phone: [facility] Comment on above: Vaginal itching Start: 09-20-2024 End: 09-20-2024 ambulatory Al Soto DO Work Phone: [facility] Work Phone: Start: 09-20-2024 End: 09-20-2024 Patient encounter procedure Al Soto DO -[facility] Work Phone: Start: 07-29-2024 End: 07-29-2024 Patient encounter procedure Al [facility] [facility] Work Phone: Start: 04-29-2024 End: 04-29-2024 ambulatory [facility] Work Phone: Start: 04-29-2024 End: 04-29-2024 Patient encounter procedure [facility] Work Phone: Start: 04-19-2024 Non-patient / Non-visit [facility] Work Phone: Start: 04-18-2024 Non-patient / Non-visit [facility] [employer] [facility] Work Phone: Start: 03-14-2024 End: 03-14-2024 Patient encounter procedure [facility] Work Phone: Start: 03-12-2024 Patient encounter procedure [facility] Start: 03-11-2024 Non-patient / Non-visit [facility] Work Phone: Start: 03-08-2024 Non-patient / Non-visit [facility] [employer] [facility] Work Phone: Start: 05-11-2023 End: 05-11-2023 ambulatory [facility] Work Phone: Start: 05-11-2023 End: 05-11-2023 Patient encounter procedure [facility] Work Phone: Start: 02-27-2023 End: 02-27-2023 ambulatory Al Soto Other [facility] Other Start: 02-27-2023 Patient encounter procedure Al Soto [facility] Start: 02-27-2023 End: 02-27-2023 [facility] encounter [facility] Work Phone: Start: 02-19-2023 End: 02-19-2023 ambulatory Al Soto Other [facility] Other Start: 02-19-2023 Telephone encounter Al [facility] Start: 12-29-2022 End: 12-29-2022 ambulatory Al Soto Other [facility] Other Start: 12-29-2022 Nursing evaluation o f patient and report [facility] Start: 06-05-2022 End: 06-06-[address] GONSALVES LISTED REQUEST Facility:[facility] Start: 05-16-2022 End: 05-17-[address] AL SOTO Facility:[facility] Start: 02-26-2022 Adult health examination Al Soto Other [facility] Other Start: 02-24-2022 End: 02-25-[address] [...] - Tdap) DTaP/Tdap/Td vaccine (2 - Tdap) [facility] Start: 2026 Respiratory Syncytia l Virus (RSV) or age 60 yrs+ (1 - 1-dose 75+ series) Respiratory Syncytial Virus (RSV) or age 60 yrs+ (1 - 1-dose 75+ series) [facility] Start: 10-21-2024 Influenza vaccination Flu vaccine (# 1) [facility] Start: 12-28-2023 Annual Wellness Visi t (Medicare) Annual Wellness Visit (Medicare) [facility] Start: 11-22-2023 COVID-19 Vaccine ( season) COVID-19 Vaccine ( season) [facility] Start: 2006 Screening for osteoporosis DEXA (modify frequency per FRAX score) [facility] Start: 01-11-1996 Screening for malign ant neoplasm of colon [facility] Start: 1991 Screening for malign ant neoplasm of breast Breast cancer screen [facility] Start: 1969 Hepatitis C screening Hepatitis C sc reen [facility] Start: 1963 Depression Screen Depression Screen [facility] Start: 1961 [facility] Breast - bilatera l Screening [facility] End: 09-22-2024 Vaginitis DNA Probe [facility] Comment on above: 1 Occurrences starti ng 09/22/2024 until 09/22/2024 [facility] Immunizations Immunization Date Immunization Notes Care Provider Juana raymond 12-29-2022 influenza virus vaccine, unspecified formulation [facility] 12-29-2022 influenza, high dose seasonal, preservative-free Al Soto Other [employer] [facility] Other 12-26-2021 influenza virus vaccine, split virus (incl. purified surface antigen) Al Soto Other [employer] Other 12-26-2021 influenza virus vaccine, unspecified formulation [facility] 05-28-2020 COVID-19, MODERNA BL UE border, Primary or Immunocompromised, (age 12y+), IM, 100 mcg/0.5mL Al Soto DO Work Phone: [facility] 05-01-2020 COVID-19, MODERNA BL UE border, Primary or Immunocompromised, (age 12y+), IM, 100 mcg/0.5mL Al Soto DO Work Phone: [facility] 07-07-2018 pneumococcal polysaccharide vaccine, 23 valent Al Soto Other [facility] 01-06-2018 influenza virus vaccine, split virus (incl. purified surface antigen) Al Soto Other [facility] Other 01-06-2018 influenza virus vaccine, unspecified formulation [facility] 06-29-2017 diphtheria, tetanus toxoids and acellular pertussis vaccine, unspecified formulation Al Soto Other [facility] 06-29-2017 pneumococcal conjuga te vaccine, 13 valent Al Soto Other [facility] Payers Date Payer Category Payer Unknown [id number] 1958 Self-pay [id number] 1958 Unknown [id number] 1950 Unknown [id number] 1950 Unknown [id number] [id number] 1950 Unknown [id number] [id number] [id number] 1950 Unknown [id number] Self-pay Self Pay [id number] Unknown [id number] [id number] [id number] Social History Date Type Detail Facility Unknown if ever smoked [facility] Other Start: 09-22-2024 Sex Assigned At N [facility] Other Start: 05-11-2023 End: 05-11-2023 Tobacco smoking status NHIS Never smoked tobacco (finding) [facility] Start: 1950 Sex Assigned At Female F [facility] Start: 05-04-2012 End: 04-29-2024 Sex Female (finding) [facility] Start: 01-25-2024 Tobacco use and exposure Smokeless tobacco non-user [facility] [employer] Start: 09-22-2024 Alcoholic beverage intake Current drinker of alcohol (finding) [employer] Start: 09-22-2024 History of Social function [facility] [employer] Start: 10-01-2020 Alcohol Comment social [facility] [employer] Start: 1950 Sex assigned at Not on file B on [employer] Medical Equipment Procedure Code Equipment Code Equipment Origin al Text Equipment Identifier Dates Sling Dietetic Aide Polypr Suprpub Midurethral Halo Ndl Guid Tb Hndl [id number] Start: 10-11-2020 Comment on above: Description: [id number] Clinical Notes 02-19-2023 to 09-20-2024 Note Date & Type Note Facility 09-20-2024 Evaluation note Diagnosis Onset Date Resolution Cervical spondylosis with radiculopathy acute September 20 2:52pm Hx of fusion of cervical spine acute September 20, 2024 2:52pm Cervical spondylosis with radiculopathy acute November 2:25pm Hx of fusion of cervical spine acute November 22 2:25pm Hypercalcemia acute November 222024 2:25pm [facility] Work Phone: 1(594) 185-650705-09-2025 Evaluation note* Diagnosis Onset Date Resolution Status Admit Date Cervical spondylosis acute July 29, 2024 9:32am Radicular pain in right arm acute July 29, 2024 9:32am Neck pain noneactive July 29, 2024 9:32am [facility] Work Phone: 1(677) 559-986312-23-2024 Evaluation note* Diagnosis Onset Date Resolution Status [...] 29, 2024 11:25am Hematochezia acute April 11:25am [facility] Work Phone: 1(613) 942-102912-08-2023 Evaluation note* Encounter Date Diagnosis Assessment Notes [...] estrogen crm. Healthy diet and exercise. [employer] Other 11-30-2023 Evaluation note* Encounter Date Diagnosis Assessment Notes Treatment Notes Treatment Clinical Notes Jan, Primary hypertension (ICD-10 - I10) Jan, Hypercholesteremia (ICD-10 - E78.00) Jan, Other specified hypothyroidism (ICD-10 - E03.8) Jan, Autoimmune thyroidit is (ICD-10 - E06.3) Jan, Vitamin D deficiency (ICD-10 - E55.9) Jan, High risk medication use (ICD-10 - Z79.899) [facility] Other Evaluation noteNo [facility] Other Evaluation note* Diagnosis Onset Date Resolution Status Bacterial conjunctivitis of right eye acute [facility] Work Phone: Evaluation note* Diagnosis Vaginal itching Pruritus of genital organs documented in this [facility] Narrative - Reported* Type Description Date Medical History hypertension Medical History hypercholesterolemia Surgical History Problem Title : ANTE RIOR CERVICAL DISCECTOMY AND FUSION (ACDF) (49235), Problem Status : Active, Surgical History Problem Title : past surgical history reviewed, Problem Description : past surgical history reviewed, Problem Comment : reviewed - no changes required, Problem Status : Inactive, Surgical History Problem Title : Spinal Fusion - Neck, Problem Status : Active, [employer] Other History general Narrative - Reported* Type Description Date Medical History hypertension Medical History hypercholesterolemia Surgical History neck surgery Hospitalization History see surgical history [facility] Other Reason for referral (narrative)No reason for referral information availableMadison [facility] Work Phone: Summary Purpose Family History Relationship [...] 3:44 PM Hospital Course Note MR#: [id number] [facility] Pt. Name: Epi Dailey Admitted: 11/13/2018 Discharged: 11/16/2018 Date of : 1950 Physician: Ryan Rehman MD DISCHARGE SUMMARY DIAGNOSES AT ADMISSION: 1. Flw-EO-ynuydsoxu myocardial infarction. 2. Acute congestive heart failure exacerbation. 3. Oropharyngeal candidiasis. DIAGNOSES AT DISCHARGE: 1. Xlf-DQ-hupcezkjd myocardial infarction. 2. Acute diastolic congestive heart failure exacerbation, resolved. 3. Oropharyngeal candidiasis, resolved. 4. Questionable pneumonia treated. 5. Hypertension controlled. 6. Hyperlipidemia. 7. Abnormal LFTs, resolved. HOSPITAL COURSE: This is a 68-year-old female, who was recently treated with Bactrim for her urinary tract infection and was also started on antibiotics and steroids for possible pneumonia, was transferred from the [place] for worsening shortness of breath along with [...] 11:25am Screening mammogram for breast [facility] 11:25am Colitis April 29, 2024 1 [...] section and content) DATE CREATED AUTHOR 12/31/2018 [facility] DATE CREATED AUTHOR AUTHOR'S ORGANIZ ATION 03/30/2020 [facility] DATE CREATED AUTHOR AUTHOR'S ORGANIZ ATION 06/06/2022 [facility] DATE CREATED AUTHOR AUTHOR'S ORGANIZ ATION 09/25/2024 [facility] REASON FOR VISIT (unrecogniz ed section and content) [facility] Care Teams (unrecognized sec tion and [...] May 11, 2023 Maria Guadalupe Youssef APRN [employer]C Attending Provider Active Start: April End: May 11, 2023 [employer] Worker Relationship Specialty Start Date End Date Al Soto DO [address] [place] [id number] PCP - General Internal Medicine 01/25/24 Team Status: Active Member Role Status Dates Al Soto DO Primary Care Provider Active Start: October 28, 2024 Marcela Haynes MD Attending Provider Active S tart: October 28, 2024 Team Status: Active Member Role Status Dates Al Soto DO Primary Care Provider Active Start: October 31, 2024 Al Stoo DO Attending Provider Active Sta rt: October [...] BE BASED ON THE PRIMARY CLINICAL RECORDS. [facility] [employer] [facility]. provides no warranty or guarantee of the accuracy or completeness of information in this document.
[2024-12-13 12:18] LABS: Calcium 24 Hour Urine 205.2 mg/24hr (100.0-300.0); Total Volume 24 Hour Urine 1900 mL/24hr
== END 2024-12-13 11:09 | disposition home or self-care (01) ==
LOC: LAB 11:08
PROVIDERS: PCP Internal Medicine; Visit Provider Internal Medicine
DX: E83.52 Hypercalcemia (principal)
CPT/HCPCS: 82340

== ENCOUNTER 2025-02-24 08:39 | Outpatient (OUT) | payer MEDICARE, SELFPAY ==
--- OUTSIDE RECORDS SUMMARY | 2025-02-24 08:48 | XMS_ITS | CCD ---
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 Name Role Phone DR AL SOTO Admitting [...] Unavailable Al Soto DO Primary Care Provider [phone] Al Soto DO Attending Provider Al Soto DO Primary Care Provider [phone] STEVIE DELGADO Referring Unavailable AL SOTO Primary Care Unavailable Al Soto DO Primary Care Provider [phone] Al Soto DO Attending Provider [phone] Marcela Haynes MD Attending Provider Unavailab Al Fisher DO Primary Care Provider NICKIE FELICIANO Attending Unavailable NICKIE FELICIANO Referring Unavailable Allergies Allergy ClassificationReported Allergen(s)Allergy TypeDate of OnsetReaction(s) Facility (1 source)Sulfamethoxazole / TrimethoprimDrug AllergyThe [facility] (2 sources)patient allergy list reviewed by nurse or physiciaPropensity to adverse tchxrigxh03-13-1586Uohjrzv:[place] Other (2 sources)Allergies ReconciledPropensity to adverse reactionsKosciusko Community HospitalNordex Online Other (7 sources)Substance with sulfonamide structure and antibacterial mechanism of action (substance)Drug qbbrecc19-40-3374Abekf, Other (See Comments)[facility] (4 sources)Sulfamethoxazole / TrimethoprimDrug Ljstine79-21-5043Aqf [facility] Medications Current Medications MedicationDrug Class(es)DatesSig (Normalized)Sig (Original)[id number] 200 actuat albuterol 0.09 mg/actuat metered dose inhaler (3 sources)beta2-Adrenergic AgonistStart: 09-64-2704glul 2 puff(s) by inhalation every four hoursalbuterol HFA (ProAir HFA) 90 mcg/act inhaler Indications: Acute cough Inhale 2 puffs every 4 (four) hours if needed (cough) 8.5 g 12/26/2024 ActiveamLODIPine 2.5 mg oral tablet (14 sources)Dihydropyridine Calcium Channel BlockerStart: 35-00-4558xton 1 tablet by mouth twice dailyAmlodipine 2.5 mg tablet Active 0 .ROUTE .COMPLEX 180 February 29, 2024 5:57pm Take 1 tablet by mouth twice daily for 90 days Complies with drug therapyStart: 05-11-2023 End: 01-22-9657afbm 1 tablet by mouth twice dailyAmlodipine 2.5 mg tablet Discontinued 2.5 MG PO Twice daily May 11, 2023 1:00am February 29, 2024 5:57pmtake 1 tablet by mouth once dailyamLODIPine Besylate 2.5 MG Take 1 tablet by mouth once daily for 90 Activeatorvastatin (3 sources)HMG-CoA Reductase InhibitorAtorvastatin Calcium Activebaclofen 10 mg oral tablet (5 sources)gamma-Aminobutyric Acid-ergic AgonistStart: 94-57-3089oownyrso (Lioresal) 10 MG tablet 07/29/2024 Activedoxycycline monohydrate 100 mg oral tablet (3 sources)Tetracycline-class DrugStart: 12-26-2024 End: 79-82-9711fawi 1 tablet by mouth oncedoxycycline (Adoxa) 100 MG tablet Indications: Acute cough Take 1 tablet (100 mg) by mouth every 12(twelve) hours for 10 days Take with a full glass of water and do not lie down for at least 30 minutes after, avoid sun exposure 20 tablet 12/26/2024 01/05/2025 Active estradiol 0.1 mg/ml vaginal cream (6 sources)EstrogenStart: 88-02-4735apqmetuqg (ESTRACE VAGINAL) 0.1 MG/GM vaginal cream Indications: Postmenopausal atrophic vaginitis Place 1 g vaginally Twice a Week 42.5 g 3 01/25/2024 ActiveStart: 77-70-0233Oqxvxtthv 0.01 % (0.1 mg/gram) cream Active 1 APPLICATOR VAGINAL As Directed May 11, 2023 1:0 0am Complies with drug therapyEstradiol 0.1 MG/GM as directed Vaginal Active levothyroxine sodium 0.075 mg oral tablet (14 sources)l-ThyroxineStart: 21-69-7493qdqz 1 tablet by mouth once daily levothyroxine (Synthroid, Levoxyl) 75 MCG tablet TAKE 1 TABLET BY MOUTH ONCE DAILY ON AN EMPTY STOMACH 11/29/2024 ActiveStart: 10-73-3856ennl 1 tablet by mouth once dailyLevothyroxine 75 mcg tablet Active 0 .ROUTE .COMPLEX March 03, 2024 11:30am TAKE 1 TABLET BY MOUTH ONCE DAILY ON AN EMPTY STOMACH FOR 90 DAYS Complies with drug therapyStart: 00-22-8268rblw 1 tablet by mouth once dailyLevothyroxine 75 mcg tablet Active 0 .ROUTE .COMPLEX March 03, 2024 10:30am TAKE 1 TABLET BY MOUTH ONCE DAILY ON AN EMPTY STOMACH FOR 90 DAYSStart: 05-11-2023 End: 89-79-5191bzjb 1 tablet by mouth once dailyLevothyroxine (Euthyrox) 75 mcg tablet Discontinued 75 MCG PO Daily May 11, 2023 1:00am March 03, 2024 11:30amStart: 63-40-3142lhip 1 tablet by mouth every twenty-four hours Euthyrox 75 MCG 1 tablet on an empty stomach oral daily for 90 days *Pick strength-form from [employer] SuperTurbo for eRX* Feb, ActiveStart: 24-24-6594xsfb 1 tablet by mouth once dailyEuthyrox 75mcg Euthyrox 75mcg, 1 Tablet daily # 90, 02/26/2022, Ref. x3. Active oral daily for 90 *Pick strength-form from [employer] SuperTurbo for eRX* 07 Feb, 2022 Activetake 1 tablet by mouth once dailylevothyroxine (SYNTHROID) 50 MCG tablet Take 1 tablet by mouth Daily Activelisinopril 20 mg oral tablet (9 sources)Angiotensin Converting Enzyme InhibitorStart: 60-69-3695yknz 1 tablet by mouth in the morninglisinopril 20 MG tablet Take 20 mg by mouth in the morning and 20 mg before bedtime. 12/02/2024 ActiveStart: 03-14-2024 End: 25-36-2353refi 1 tablet by mouth twice dailyLisinopril 20 mg tablet Active 20 MG PO Twice daily 180 March 14, 2024 1:00am Complies withdrug therapy lovastatin 20 mg oral tablet (11 sources)HMG-CoA Reductase InhibitorStart: 47-85-1891qpsj 1 tablet by mouth once dailyLovastatin 20 mg tablet Active 0 .ROUTE .COMPLEX February 22, 2024 9:38am Take 1 tablet by mouth once daily for 90 days Complies with drug therapy Start: 02-26-2022 End: 10-27-7295ktwy 1 tablet by mouth once dailyLovastatin 20 mg tablet Discontinued 20 MG PO Daily May 11, 2023 1:00am February 22, 2024 9:39am nystatin [id number] unt/ml / triamcinolone acetonide 1 mg/ml topical cream (1 source)Polyene Antifungal, CorticosteroidStart: 47-57-4766hovioauu- triamcinolone (MYCOLOG II) 368710-3.1 UNIT/GM-% cream Apply topically 2 times daily. 1 each 09/22/2024 Activepolymyxin b 42836 unt/ml / trimethoprim 1 mg/ml ophthalmic solution (4 sources)Dihydrofolate Reductase Inhibitor Antibacterial, Polymyxin-class AntibacterialStart: 70-23-8535spei 1 drop(s) into the eye(s) four times daily Polymyxin B Sulf-Trimethoprim 10,000 unit- 1 mg/mL drops Active 1 DROPS OPHTHALMIC Four times daily10 May 11, 2023 1:00am Complies with drug therapyStart: 83-92-1416yflz 1 drop(s) into the eye(s) four times dailyPolymyxin B Sulf-Trimethoprim Active 1 DROPS OPHTHALMIC Four times daily 10 May 11, 2023 12:00amubidecarenone 100 mg / vitamin e 5 unt oral capsule (1 source)take 1 capsule by mouth once dailyCoenzyme Q10 (COQ10) 100 MG CAPS Take by mouth daily Active Completed/Discontinued Medications MedicationDrug Class(es)DatesSig (Normalized)Sig (Original)cephalexin 500 mg oral capsule (3 sources)Cephalosporin AntibacterialStart: 02-61-2347arlx 1 capsule by mouth every eight hoursCephalexin 500 MG 1 capsule Orally three times a day for 5 days Sep, Not-Taking/PRNfluconazole 150 mg oral tablet (2 sources)Azole AntifungalStart: 05-10-2024 End: 61-71-6735wyls 1 tablet by mouth once dailyFluconazole 150 mg tablet Discontinued 150 MG PO Daily 1 May 10, 2024 1:00am September 02, 2024 7:37amlosartan potassium 100 mg oral tablet (9 sources)Angiotensin 2 Receptor BlockerStart: 05-11-2023 End: 45-34-7494memk 1 tablet by mouth once dailyLosartan 100 mg tablet Discontinued 100 MG PO Daily May 11, 2023 1:00am March 14, 2024 1 2:43pmStart: 67-95-6805uzyu 1 tablet by mouth every twenty-four hoursLosartan Potassium 100 MG 1 tablet Orally Once a day for 90 days Feb, Activetake 1 tablet by mouth once dailylosartan (COZAAR) 25 MG tablet Take 1 tablet by mouth daily ActiveLosartan Potassium-HCTZ (3 sources)Losartan Potassium-HCTZ Not-Taking/PRNLosartan Potassium-HCTZ Active phenazopyridine hydrochloride 200 mg oral tablet (3 sources)Start: 25-58-7572ivlo 1 tablet by mouth every eight hoursPyridium 200 MG 1 tablet after meals Orally Three times a day for 2 day(s) Sep, Not-Taking/PRNpredniSONE 20 mg oral tablet (2 sources)Start: 07-29-2024 End: 74-53-7021Uxtprckcxj 20 mg tablet Discontinued 20 MG PO As Directed 04 01July 29, 2024 12:00am September 02, 2024 7:37am 1 tab bid w/ food x 5 days, then qd w/ food x 5 days Problems Active Problems Problem ClassificationProblemDateDocumented DateEpisodic/ChronicAcute bronchitis (2 sources)Acute bronchitis; Translations: [Acute bronchitis, unspecified] 92-68-4357QiidmuwyLvrwkhem of white blood cells (7 sources)Lymphocytosis (symptomatic); Translations: [Lymphocytosis]Onset: 54-49-0655GqczsouWrfhlkcgw of lipid metabolism (19 sources)Pure hypercholesterolemia, unspecified; Translations: [Hyperlipidemia]Onset: 06-29-2016 Resolved: 07-53-7850GerfchhNylbalazm hypertension (14 sources)Essential (primary) hypertension; Translations: [Essential hypertension]Onset: 88-61-9989ZbntjfmEsttfdxgetwmzqit hemorrhage (4 sources)Hematochezia; Translations: [Melena]08-65-5319IstcpekvWcwsyspfeizsa symptoms and ill-defined conditions (3 sources)Polyuria; Translations: [Other polyuria]EpisodicImmunizations and screening for infectious disease (3 sources)Vaccination given; Translations: [Encounter for immunization]Episodic Inflammation; infection of eye (except that caused by tuberculosis or sexually transmitteddisease) (2 sources)Bacterial conjunctivitis; Translations: [Unspecified conjunctivitis] 23-62-6776FxrksuapHmfuhpvrbrten gastroenteritis (4 sources)Colitis; Translations: [Noninfective gastroenteritis and colitis, unspecified]26-19-3356BaycqashDlwrjcohzma deficiencies (3 sources)Vitamin D deficiency; Translations: [Vitamin D deficiency, unspecified]ChronicOther aftercare (2 sources)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; Translations: [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 CURRENT DRUG THERAPY]Onset: 53-47-0472IspymbkzFwfgs aftercare (3 sources)Long-term current use of drug therapy; Translations: [Other halfway (current) drug therapy]EpisodicOther connective tissue disease (4 sources)History of cervical spine fusion; Translations: [Arthrodesis status] 24-12-1350IleywfbuSwxhs connective tissue disease (3 sources)Radicular pain; Translations: [Neuralgia and neuritis, unspecified] 46-23-7923UjhhreeaAleup female genital disorders (1 source)Pruritus of vagina; Translations: [Other specified noninflammatory disorders of vagina]72-80-9148EkkcyzwzRziqn female genital disorders (1 source)Other specified noninflammatory disorders of vagina; Translations: [Other specified noninflammatorydisorders of vagina]Onset: 88-79-9812Chvprdqt Other injuries and conditions due to external causes (3 sources)History of fall; Translations: [History of falling]EpisodicOther lower respiratory disease (2 sources)Cough; Translations: [Acute cough]15-47-4481UnvcamccMqtps non- traumatic joint disorders (1 source)Shoulder pain; Translations: [Pain in unspecified shoulder]10-31-2024 EpisodicOther nutritional; endocrine; and metabolic disorders (2 sources)Hypercalcemia; Translations: [Hypercalcemia]55-10-2288PlohqnmFfkoq nutritional; endocrine; and metabolic disorders (6 sources)Overweight; Translations: [Overweight]85-07-2456TkemfhdpTqnmu nutritional; endocrine; and metabolic disorders (1 source)Overweight; Translations: [Overweight]79-88-2958ZsxgoubxZcklf screening for suspected conditions (not mental disorders or infectious disease) (9 sources)Encounter for screening mammogram for malignant neoplasm of breast; Translations: [Patient encounter status]Onset: 95-76-5938EzofrpwoKvvvnslz of female genital organs (5 sources)Uterovaginal prolapse; Translations: [Uterovaginal prolapse, unspecified]Onset: 146837-69-3246FbxjxdnQvsslgyo codes; unclassified (3 sources)Postmenopausal state; Translations: [Asymptomatic menopausal state] EpisodicResidual codes; unclassified (3 sources)Procedure not done; Translations: [Procedure and treatment not carried out because of patient's decision for unspecified reasons]Episodic Residual codes; unclassified (1 source)Asymptomatic menopausal stateEpisodicSpondylosis; intervertebral disc disorders; other back problems (7 sources)Cervical spondylosis; Translations: [Other spondylosis with radiculopathy, cervical region]88-94-2289OxdhzjbRvxbqrqfzjz; intervertebral disc disorders; other back problems (4 sources)Low back pain; Translations: [Low back pain, unspecified]Onset: 374193-50-4084OajpqivxTzarcfm disorders (17 sources)Autoimmune thyroiditis; Translations: [Thyroiditis]Onset: 03-01-2022 ChronicThyroid disorders (1 source)Disorder of thyroid gland; Translations: [Disorder of thyroid, unspecified]55-53-9501UpowplpoJzacm infection (6 sources)Herpes simplex; Translations: [Herpesviral infection, unspecified] Episodic Past or Other Problems Problem ClassificationProblemDateDocumented DateEpisodic/ChronicBacterial infection; unspecified site (3 sources)Bacterial infectious disease; Translations: [Bacterial infection, unspecified, in conditions classified elsewhere and of unspecified site]Onset: 51-72-0805XjaxlcqtAxcvvit and fatigue (3 sources)Malaise and fatigue; Translations: [Other malaise and fatigue]Onset: 60-37-1142NmwybttgBlvptohhga disorders (6 sources)Menopausal symptom; Translations: [Symptomatic menopausal or female climacteric states]Onset: 04-29-2016 Resolved: 72-22-4059FfieehiLlwqeies codes; unclassified (3 sources)Requires influenza virus vaccination; Translations: [Need for prophylactic vaccination and inoculation, Influenza]Onset: 88-14-1624Gxwidheb Unclassified (3 sources)Long-term current use of drug therapy; Translations: [Long-term (current) use of other medications]Onset: 17-18-8788Snibthk tract infections (3 sources)Acute cystitis; Translations: [Acute cystitis without hematuria] Onset: 53-95-6207Ujkwriss Results Test NameValueInterpretationReference RangeFacilityXR CHEST 2 VIEWSon 12-26-2024 XR CHEST 2 VIEWSEXAMINATION: XR CHEST 2 VIEWS HISTORY: Cough TECHNIQUE: Frontal and lateral views of the chest. COMPARISON: None available FINDINGS: Cardiomediastinal silhouette is within normal limits. No pneumothorax, pleural effusion, or consolidation. No acute osseous abnormality. IMPRESSION: No radiographic evidence of acute intrathoracic process. ELECTRONICALLY SIGNED BY: Bonifacio Colindres DONormalNot AvailableXR Chest 2 Views on 12-26-2024 No radiographic evidence of acute intrathoracic process. ELECTRONICALLY SIGNED BY: KRISTIN HernandezMAGINGEXAMINATION: XR CHEST 2 VIEWS HISTORY: Cough TECHNIQUE: Frontal and lateral views of the chest. COMPARISON: None available FINDINGS: Cardiomediastinal silhouette is within normal limits. No pneumothorax, pleural effusion, or consolidation. No acute osseous abnormality. IMAGINGSteffBonifacio arteaga, DO - 12/26/2024 EXAMINATION: XR CHEST 2 VIEWS HISTORY: Cough TECHNIQUE: Frontal and lateral views of the chest. COMPARISON: None available FINDINGS: Cardiomediastinal silhouette is within normal limits. No pneumothorax, pleural effusion, or consolidation. No acute osseous abnormality. IMPRESSION: No radiographic evidence of acute intrathoracic process. ELECTRONICALLY SIGNED BY: Bonifacio Colindres DO [facility] HealthcareRadiology Study observation (narrative)[facility] HealthcareXR Chest 2 ViewsOrdered By: Bonifacio Colindres on 41-90-1050[facility] Work Phone: albumin [Mass/volume] in Serum or PlasmaOrdered By: Al Soto on 84-18-3680Yfwelxw [Mass/Vol]4.2 g/dL2.9-4.4FSheltering Arms HospitalBasophils Auto (Bld) [#/Vol]Ordered By: Al Soto on 83-98-5339Sjfjaytrb (Bld) [#/Vol]0.0 10 3/uL0.0-0.1FSheltering Arms HospitalBasophils/100 WBC Auto (Bld)Ordered By: Al Soto on 10-31-2024 Basophils/100 WBC (Bld)0.5 %0.2-2.0[facility] Eosinophils/100 WBC Auto (Bld)Ordered By: Al Soto on 10-31-2024 Eosinophils/100 WBC (Bld)1.2 %0.9-7.0[facility] Erythrocyte distribution width Auto (RBC) [Ratio]Ordered By: Al Soto on 24-91-3874Qbjrhljmlgc distribution width (RBC) [Ratio]13.8 %11.0-15.0[facility] Medical CenterGlomerular filtration rate (GFR) estimation in non- AmericanOrdered By: Al Soto on 98-97-2783BII/1.73 sq M.predicted among non-blacks MDRD (S/P/Bld) [Vol rate/Area]mL/min/{1.73_m2}>=60 mL/min/1.73m 2FSheltering Arms HospitalHematocrit Auto (Bld) [Volume fraction]Ordered By: Al Soto on 31-87-4975Pfuqflnash (Bld) [Volume fraction]44.1 %36.0-48.0 [facility] CenterHemoglobin [Mass/volume] in BloodOrdered By: Al Soto on 29-35-4855Rjsxwxsjkk (Bld) [Mass/Vol]15.0 g/dL12.0-16.0 [facility] CenterIgA [Mass/volume] in Serum or PlasmaOrdered By: Al Soto on 04-33-9064ZvF [Mass/Vol]247 mg/tS41-974IpxvxwruhTrinity Health System Twin City Medical CenterIgG [Mass/volume] in Serum or PlasmaOrdered By: Al Soto on 87-68-7429JyC [Mass/Vol]1471 mg/zL564-2911PucpemjmpTrinity Health System Twin City Medical CenterIgM [Mass/volume] in Serum or PlasmaOrdered By: Al Soto 43-63-0153OlL [Mass/Vol]64 mg/yH20-420RqtwttcbdTrinity Health System Twin City Medical CenterImmunoglobulin light chains.kappa.free [Mass/volume] in SerumOrdered By: Al Soto 10-31-2024 Immunoglobulin light chains.kappa.free (S) [Mass/Vol]24.8 mg/LAbnormal3.3-19.4 [facility] CenterImmunoglobulin light chains.kappa.free/Immunoglobulin light chains.lambda.free [MassOrdered By: Al Soto 14-11-1688Htrjdpwetkbdav light chains.kappa.free/Immunoglobulin light chains.lambda.free (S) [Mass ratio]1.440.26-1.65[facility] Medical CenterComment on above:Performed at: [facility] Lab[address] [id number] Director: Craig Goel PhD, Phone: [phone] Immunoglobulin light chains.lambda.free [Mass/volume] in Serum or PlasmaOrdered By: Al Soto 27-52-1991Monjhegdxvacml light chains.lambda.free [Mass/Vol]17.2 mg/L5.7-26.3FSheltering Arms HospitalLaboratory - Chemistry and Chemistry - challengeOrdered By: Al Soto 10-31-2024 Calcium [Mass/Vol]10.3 mg/dLHigh8.5-10.1FSheltering Arms Hospital Chloride [Moles/Vol]104 mmol/C58-957QtqvzsunrTrinity Health System [facility] Medical CenterCO2 [Moles/Vol]24.8 mmol/L21.0-32.0[facility] CenterCreatinine [Mass/Vol]0.90 mg/dL0.55-1.02[facility] CenterGFR/1.73 sq M.predicted MDRD (S/P/Bld) [Vol rate/Area]mL/min/{1.73_m2}>=60 mL/min/1.73m 2 [facility] CenterGlucose [Mass/Vol]110 mg/eIHpqc57-068IdljzyogiTrinity Health System [facility] Medical CenterPotassium [Moles/Vol]3.9 mmol/L3.5-5.1FHenry County Hospitalodium [Moles/Vol]140 mmol/F656-579KvseeogcrTrinity Health System Twin City Medical CenterUrea nitrogen [Mass/Vol]12.0 mg/dL7.0-18.0[facility] CenterUrea nitrogen/Creatinine [Mass ratio]13.3 mg/mgTrinity Health System Twin City Medical CenterLaboratory - Hematology and Cell countsOrdered By: Al Soto on 76-49-8462Zonlawub granulocytes/100 WBC (Bld)0.0 %0.0-0.5FSheltering Arms HospitalLeukocytes [#/volume] corrected for nucleated erythrocytes in Blood by Automated counOrdered By: Al Soto on 79-87-0596RVC corrected for nucl RBC Auto (Bld) [#/Vol]6.6 10 3/uL4.0-11.0[facility] Lymphocytes Auto (Bld) [#/Vol]Ordered By: Al Soto on 23-36-6761Jkaokuhjbby (Bld) [#/Vol]3.1 10 3/uL1.2-3.8[facility] CenterLymphocytes/100 WBC Auto (Bld)Ordered By: Al Soto on 91-28-1709Vpnfmgzgybb/100 WBC (Bld) 46.7 %20.5-60.0[facility] CenterMCH Auto (RBC) [Entitic mass] Ordered By: Al Soto on 04-18-4321TGL (RBC) [Entitic mass]29.7 pg26.7-34.0 [facility] CenterMCHC Auto (RBC) [Mass/Vol]Ordered By: Al Soto on 41-19-6489BDDV (RBC) [Mass/Vol]34.0 g/dL29.9-35.2FSheltering Arms HospitalMCV Auto (RBC) [Entitic vol]Ordered By: Al Soto on 68-12-3645SID (RBC) [Entitic vol]87.3 fL81.0-99.0[facility] CenterMonocytes Auto (Bld) [#/Vol]Ordered By: Al Soto on 10-31-2024 Monocytes (Bld) [#/Vol]0.3 10 3/uL0.3-0.8[facility] Monocytes/100 WBC Auto (Bld)Ordered By: Al Soto on 74-79-3850Kyicokzjo/100 WBC (Bld)4.9 %1.7-12.0[facility] CenterNeutrophils Auto (Bld) [#/Vol]Ordered By: Al Soto on 59-01-5820Hlxjrudauez (Bld) [#/Vol]3.1 10 3/uL1.4-6.5FSheltering Arms HospitalNeutrophils/100 WBC Auto (Bld) Ordered By: Al Soto on 70-59-7819Wlbhaewfvva/100 WBC (Bld)46.7 %43.0-75.0 [facility] CenterNo Panel InformationOrdered By: Al Soto on 24-96-4709Okatljpejhh # (Auto)0.1 10 3/uL0.0-0.7FSheltering Arms HospitalImmature Granulocyte # (Auto)0.00 10 3/uL0.00-0.03[facility] CenterProtein Electrophoresis M-SpikeNot Observed g/dLNot Observed [facility] CenterProtein Electrophoresis NoteComment.[facility] CenterComment on above:Protein electrophoresis scan will follow via computer,mail, or sliver lapper delivery.Platelet mean volume Auto (Bld) [Entitic vol]Ordered By: Al Soto on 47-18-3057Pbpqkmkt mean volume (Bld) [Entitic vol]11.6 fL9.5-13.5Fire[facility] Medical CenterPlatelets Auto (Bld) [#/Vol] Ordered By: Al Soto on 56-61-6053Bgojpsthn (Bld) [#/Vol]232 10 3/eJ532-338 [facility] CenterProtein [Mass/volume] in Serum or PlasmaOrdered By: Al Soto on 36-15-4526Dcbkkjc [Mass/Vol]8.5 g/dL6.0-8.5FSheltering Arms HospitalRBC Auto (Bld) [#/Vol]Ordered By: Al Soto on 22-80-3521TLT (Bld) [#/Vol]5.05 10 6/uL4.20-5.40[facility] Systemerum globulin measurement (mass/volume)Ordered By: Al Soto on 68-38-9461Nllppkvs (S) [Mass/Vol]4.3 g/dLAbnormal2.2-3.9[facility] Systemerum or plasma albumin/globulin mass ratioOrdered By: Al Soto 23-95-3724Akiautc/Globulin [Mass ratio]1.0 {ratio}0.7-1.7FHenry County Hospitalerum or plasma alpha 1 globulin measurement by electrophoresis (mass/volume)Ordered By: Al Soto 67-20-0864Vxtcg 1 globulin Elph [Mass/Vol]0.3 g/dL0.0-0.4FHenry County Hospitalerum or plasma alpha 2 globulin measurement by electrophoresis (mass/volume)Ordered By: Al Soto 45-58-9344Itljq 2 globulin Elph [Mass/Vol]1.1 g/dLAbnormal 0.4-1.0[facility] Systemerum or plasma anion gap determination Ordered By: Al Soto 48-15-3805Whiqj gap [Moles/Vol]15.1 mmol/LFHenry County Hospitalerum or plasma beta globulin measurement by electrophoresis (mass/volume)Ordered By: Al Soto 13-20-5115Werz globulin Elph [Mass/Vol]1.4 g/dLAbnormal0.7-1.3FSheltering Arms Hospital Serum or plasma gamma globulin measurement by electrophoresis (mass/volume) Ordered By: Al Soto 44-05-2225Azukw globulin Elph [Mass/Vol]1.5 g/dL 0.4-1.8[facility] Systemerum or plasma immunoelectrophoresis interpretationOrdered By: Al Soto on 41-74-1093Kgfprcknvctnfl IEP [Interp] Comment.[facility] CenterComment on above:No monoclonality detected.Glomerular filtration rate (GFR) estimation in non- Ordered By: Marcela Haynes on 51-20-9109LMO/1.73 sq M.predicted among non- blacks MDRD (S/P/Bld) [Vol rate/Area]mL/min/{1.73_m2}>=60 mL/min/1.73m 2 [facility] CenterLaboratory - Chemistry and Chemistry - challengeOrdered By: Marcela Haynes on 52-09-1796Onvtjkcyam [Mass/Vol]0.85 mg/dL0.55-1.02[facility] CenterGFR/1.73 sq M.predicted MDRD (S/P/Bld) [Vol rate/Area]mL/min/{1.73_m2}>=60 mL/min/1.73m 2FSheltering Arms HospitalVaginitis DNA Probeon 64-90-7861GujtclgPcfnnhnmYbiecwCAGGouhnMain Campus Medical CenterComment on above:Result Comment: for Zaida sp. Method of testing is a DNA probe intended for detection and identification of Zaida species, Gardnerella vaginalis, and Trichomonas vaginalis nucleic acid in vaginal fluid specimens from patients with symptoms of vaginitis/vaginosis. Performed By: #### VAGP #### [facility] [address] [place], [place] [id number] Gut Snatcher: Cara GonsalesllaPositiveAbnoRegency Hospital Cleveland EastComment on above:Result Comment: for Gardnerella vaginalis Performed By: #### VAGP #### [facility] [address] [place], [place] [id number] Gut Snatcher: Kobe GonsalesonasNegAdena Health SystemComment on above:Result Comment: for Trichomonas Vaginalis Performed By: #### VAGP #### [address] [place] [address] Gut Snatcher: Matthew España MDVaginitis DNA Probeon 37-86-2427Uxbpuj.VAGINAL SWABNormalMercy Kentfield Hospital San FranciscoComment on above:Performed By: #### VAGP #### [address] [place] [address] Gut Snatcher: Matthew España MDBasophils Auto (Bld) [#/Vol]on 04-18-2024 Basophils (Bld) [#/Vol]Automated basophil count0.0-0.1FSheltering Arms HospitalBasophils/100 WBC Auto (Bld)on 80-42-9029Nueypebzx/100 WBC (Bld)Automated basophil %0.2-2.0[facility] CenterEosinophils/100 WBC Auto (Bld)on 90-93-1356Jcjdnywlfxs/100 WBC (Bld)Automated eosinophil %Low0.9-7.0 [facility] CenterErythrocyte distribution width Auto (RBC) [Ratio]on 59-74-6515Dwrrfbuepvm distribution width (RBC) [Ratio]Erythrocyte distribution width [Ratio] by Automated count11.0-15.0[facility] Medical CenterEstimated glomerular filtration rate (GFR) non- Americanon 57-30-6574MTL/1.73 sq M.predicted among non-blacks MDRD (S/P/Bld) [Vol rate/Area]Estimated glomerular filtration rate (GFR) non- AmericanLow>=60 mL/min/1.73m 2FSheltering Arms HospitalHematocrit Auto (Bld) [Volume fraction]on 99-53-3183Sazympxjry (Bld) [Volume fraction]Hematocrit [Volume Fraction] of Blood by Automated count36.0-48.0[facility] Hemoglobin [Mass/volume] in Bloodon 22-25-8294Scmkckrvew (Bld) [Mass/Vol] Hemoglobin [Mass/volume] in Blood12.0-16.0[facility] Laboratory - Chemistry and Chemistry - challengeon 82-33-1504Zvfqgwi [Mass/Vol] 9.8 mg/dL8.5-10.1FSheltering Arms HospitalChloride [Moles/Vol]101 mmol/L 98-107[facility] Medical CenterCO2 [Moles/Vol]24.7 mmol/L21.0-32.0 [facility] CenterCreatinine [Mass/Vol]1.02 mg/dL0.55-1.02 [facility] CenterGFR/1.73 sq M.predicted MDRD (S/P/Bld) [Vol rate/Area]mL/min/{1.73_m2}>=60 mL/min/1.73m 2FSheltering Arms Hospital Glucose [Mass/Vol]123 mg/aUQdul06-556AirzosbpuTrinity Health System [facility] Medical CenterPotassium [Moles/Vol]3.6 mmol/L3.5-5.1FHenry County Hospitalodium [Moles/Vol] 136 mmol/N790-305WcatgjzefTrinity Health System [facility] Medical CenterUrea nitrogen [Mass/Vol]13.0 mg/dL7.0-18.0[facility] CenterUrea nitrogen/Creatinine [Mass ratio]12.7 mg/mgTrinity Health System [facility] Medical CenterLaboratory - Hematology and Cell countson 01-58-2009Lpvsrdic granulocytes/100 WBC (Bld)0.2 %0.0-0.5FSheltering Arms HospitalLeukocytes [#/volume] corrected for nucleated erythrocytes in Blood by Automated counon 44-39-0873FMM corrected for nucl RBC Auto (Bld) [#/Vol]Leukocytes [#/volume] corrected for nucleated erythrocytes in Blood by Automated counHigh4.0-11.0[facility] CenterLymphocytes Auto (Bld) [#/Vol]on 16-94-6586Ytxjnxvarie (Bld) [#/Vol]Lymphocytes [#/volume] in Blood by Automated countPocahontas Memorial Hospital1.2-3.8[facility] Lymphocytes/100 WBC Auto (Bld)on 59-58-3908Brhdetqfsyv/100 WBC (Bld) Lymphocytes/100 leukocytes in Blood by Automated count20.5-60.0[facility] CenterMCH Auto (RBC) [Entitic mass]on 36-68-4014QLR (RBC) [Entitic mass]MCH [Entitic mass] by Automated count26.7-34.0[facility] CenterMCHC Auto (RBC) [Mass/Vol]on 32-61-1022LRWK (RBC) [Mass/Vol]MCHC [Mass/volume] by Automated count29.9-35.2FSheltering Arms HospitalMCV Auto (RBC) [Entitic vol]on 37-14-6436MAU (RBC) [Entitic vol]MCV [Entitic volume] by Automated count81.0-99.0[facility] CenterMonocytes Auto (Bld) [#/Vol]on 44-93-3371Vnsixoism (Bld) [#/Vol]Automated blood monocyte count0.3-0.8 [facility] CenterMonocytes/100 WBC Auto (Bld)on 04-18-2024 Monocytes/100 WBC (Bld)Automated monocyte %1.7-12.0[facility] CenterNeutrophils Auto (Bld) [#/Vol]on 68-96-5582Guelewjlupw (Bld) [#/Vol] Neutrophils [#/volume] in Blood by Automated countHigh1.4-6.5FSheltering Arms HospitalNeutrophils/100 WBC Auto (Bld)on 15-31-8072Idplfmyhrwl/100 WBC (Bld)Automated neutrophil %43.0-75.0[facility] CenterNo Panel Informationon 37-34-5847Rwdorgvwyhe # (Auto)0.0 10 3/uL0.0-0.7FSheltering Arms HospitalImmature Granulocyte # (Auto)0.02 10 3/uL0.00-0.03[facility] CenterPlatelet mean volume Auto (Bld) [Entitic vol]on 19-68-0016Kfcphcgf mean volume (Bld) [Entitic vol]Platelet mean volume [Entitic volume] in Blood by Automated count9.5-13.5FSheltering Arms Hospital Platelets Auto (Bld) [#/Vol]on 77-61-0847Vzlvhkyxs (Bld) [#/Vol]Platelets [#/volume] in Blood by Automated fcdyf511-481LfevdvghgTrinity Health System [facility] Center RBC Auto (Bld) [#/Vol]on 15-92-8610ZJI (Bld) [#/Vol]Erythrocytes [#/volume] in Blood by Automated count4.20-5.40Mount Carmel Health Systemerum or plasma anion gap determinationon 94-15-9970Qfqbp gap [Moles/Vol]Serum or plasma anion gap determinationTrinity Health System [facility] Medical CenterBasophils Auto (Bld) [#/Vol]on 05-41-4067Lumzudbou (Bld) [#/Vol]Automated basophil count0.0-0.1 [facility] CenterBasophils/100 WBC Auto (Bld)on 03-08-2024 Basophils/100 WBC (Bld)Automated basophil %0.2-2.0[facility] CenterCholesterol in LDL Calc [Mass/Vol]on 97-09-8362Cxgferrevne in LDL [Mass/Vol]Cholesterol in LDL [Mass/volume] in Serum or Plasma by calculation [facility] CenterComment on above:<100 mg/dl VKRMEGM054-552 mg/dl NEAR OR ABOVE YZAGKWY519-792 mg/dl BORDERLINE REBE269-248 mg/dl HIGH>190 mg/dl VERY HIGHCholesterol in VLDL Calc [Mass/Vol]on 53-13-2772Dkyxwlwakze in VLDL [Mass/Vol]Cholesterol in VLDL [Mass/volume] in Serum or Plasma by calculationTrinity Health System Twin City Medical CenterEosinophils/100 WBC Auto (Bld)on 01-72-5456Bfdmhikniyt/100 WBC (Bld)Automated eosinophil %0.9-7.0[facility] CenterErythrocyte distribution width Auto (RBC) [Ratio]on 64-89-7054Ntkdsggyvkn distribution width (RBC) [Ratio]Erythrocyte distribution width [Ratio] by Automated count11.0-15.0[facility] Estimated glomerular filtration rate (GFR) non- Americanon 03-08-2024 GFR/1.73 sq M.predicted among non-blacks MDRD (S/P/Bld) [Vol rate/Area]Estimated glomerular filtration rate (GFR) non->=60 mL/min/1.73m 2 [facility] CenterGlobulin Calc (S) [Mass/Vol]on 03-08-2024 Globulin (S) [Mass/Vol]Serum globulin measurement by calculation (mass/volume) [facility] CenterHematocrit Auto (Bld) [Volume fraction]on 07-10-8499Swqinwtcih (Bld) [Volume fraction]Hematocrit [Volume Fraction] of Blood by Automated count36.0-48.0[facility] CenterHemoglobin [Mass/volume] in Bloodon 77-98-1847Bbdnczvkky (Bld) [Mass/Vol]Hemoglobin [Mass/volume] in Blood12.0-16.0[facility] CenterLaboratory - Chemistry and Chemistry - challengeon 05-48-0670Rczfutd [Mass/Vol]3.7 g/dL 3.4-5.0[facility] CenterALP [Catalytic activity/Vol]76 U/L46-116 [facility] CenterALT [Catalytic activity/Vol]56 U/L14-59 [facility] CenterAST [Catalytic activity/Vol]45 U/YZqiz44-17 [facility] CenterBilirubin [Mass/Vol]0.5 mg/dL0.2-1.0[facility] CenterCalcium [Mass/Vol]9.2 mg/dL8.5-10.1FSheltering Arms HospitalChloride [Moles/Vol]106 mmol/C45-944GxvtylirfTrinity Health System Twin City Medical CenterCholesterol [Mass/Vol]151 mg/dL<=200[facility] Cholesterol in HDL [Mass/Vol]37 mg/kAFlm53-39UkrpqmmhyTr[facility] Comment on above:> or =60 mg/dl - LOW CARDIOVASCULAR RISK<40 mg/dl - HIGH CARDIOVASCULAR RISKCO2 [Moles/Vol]27.0 mmol/L21.0-32.0[facility] CenterCreatinine [Mass/Vol]0.91 mg/dL0.55-1.02[facility] GFR/1.73 sq M.predicted MDRD (S/P/Bld) [Vol rate/Area]mL/min/{1.73_m2}>=60 mL/min/1.73m 2FSheltering Arms HospitalGlucose [Mass/Vol]107 mg/dLHigh 74-106[facility] CenterPotassium [Moles/Vol]4.0 mmol/L3.5-5.1 [facility] CenterProtein [Mass/Vol]7.6 g/dL6.4-8.2FHenry County Hospitalodium [Moles/Vol]142 mmol/Z286-543MkkftoppcTrinity Health System [facility] Medical CenterTriglyceride [Mass/Vol]149 mg/dL<=150[facility] CenterTSH Qn1.900 m[IU]/L0.358-3.740[facility] CenterUrea nitrogen [Mass/Vol]13.0 mg/dL7.0-18.0[facility] CenterUrea nitrogen/Creatinine [Mass ratio]14.3 mg/mgTrinity Health System [facility] Center Laboratory - Hematology and Cell countson 42-89-1282Abbjabub granulocytes/100 WBC (Bld)0.1 %0.0-0.5FSheltering Arms HospitalLeukocytes [#/volume] corrected for nucleated erythrocytes in Blood by Automated counon 53-14-3998YEO corrected for nucl RBC Auto (Bld) [#/Vol]Leukocytes [#/volume] corrected for nucleated erythrocytes in Blood by Automated coun4.0-11.0[facility] CenterLymphocytes Auto (Bld) [#/Vol]on 85-09-5644Oascuilcgar (Bld) [#/Vol]Lymphocytes [#/volume] in Blood by Automated count1.2-3.8[facility] CenterLymphocytes/100 WBC Auto (Bld)on 03-08-2024 Lymphocytes/100 WBC (Bld)Lymphocytes/100 leukocytes in Blood by Automated count 20.5-60.0[facility] HospitalH Auto (RBC) [Entitic mass]on 09-02-9952DDY (RBC) [Entitic mass]MCH [Entitic mass] by Automated count26.7-34.0 [facility] CenterMCHC Auto (RBC) [Mass/Vol]on 37-35-1432BRTF (RBC) [Mass/Vol]MCHC [Mass/volume] by Automated count29.9-35.2FSheltering Arms HospitalMCV Auto (RBC) [Entitic vol]on 49-75-3292WNX (RBC) [Entitic vol] MCV [Entitic volume] by Automated count81.0-99.0[facility] CenterMonocytes Auto (Bld) [#/Vol]on 75-61-3400Dxfebxhjx (Bld) [#/Vol]Automated blood monocyte count0.3-0.8[facility] CenterMonocytes/100 WBC Auto (Bld)on 41-55-4967Djbjuhdqg/100 WBC (Bld)Automated monocyte %1.7-12.0 [facility] CenterNeutrophils Auto (Bld) [#/Vol]on 03-08-2024 Neutrophils (Bld) [#/Vol]Neutrophils [#/volume] in Blood by Automated count 1.4-6.5FSheltering Arms HospitalNeutrophils/100 WBC Auto (Bld)on 58-15-5525Jlwwrkywjot/100 WBC (Bld)Automated neutrophil %Low43.0-75.0[facility] CenterNo Panel Informationon 62-22-7048Strvrpdoufw # (Auto)0.2 10 3/uL0.0-0.7FSheltering Arms HospitalImmature Granulocyte # (Auto)0.01 10 3/uL0.00-0.03[facility] CenterPlatelet mean volume Auto (Bld) [Entitic vol]on 39-06-0966Rbwwmipf mean volume (Bld) [Entitic vol]Platelet mean volume [Entitic volume] in Blood by Automated count9.5-13.5FSheltering Arms HospitalPlatelets Auto (Bld) [#/Vol]on 22-13-7589Erglfhskz (Bld) [#/Vol]Platelets [#/volume] in Blood by Automated ahewa755-193WpiwvccxvTrinity Health System Twin City Medical CenterRBC Auto (Bld) [#/Vol]on 21-90-9627ZGA (Bld) [#/Vol]Erythrocytes [#/volume] in Blood by Automated count4.20-5.40[facility] Serum or plasma albumin/globulin mass ratioon 35-32-8139Jqwqsmx/Globulin [Mass ratio]Serum or plasma albumin/globulin mass ratioMount Carmel Health Systemerum or plasma anion gap determinationon 45-90-0080Oudpe gap [Moles/Vol] Serum or plasma anion gap determinationMount Carmel Health Systemerum or plasma total cholesterol/high density lipoprotein (HDL) cholesterol mass lai 51-54-8164Fovzhuqvuwf.total/Cholesterol in HDL [Mass ratio]Serum or plasma total cholesterol/high density lipoprotein (HDL) cholesterol mass [facility] HospitalComment on above:3.3 - 4.4 LOW RISK4.4 - 7.1 AVERAGE RISK7.1 - 11.0 MODERATE RISK>11.0 HIGH RISKDAT - TSHon 06-55-2100DLW6.299 uIU/mL Critically low0.358-3.740[facility] CenterComment on above:Performed By: #### DATTSH #### [facility] [address] [place] [address] Dr. Kali Leggett Salem City HospitalComment on above: Result Comment: <0.34 UIU/ml HYPERTHYROID 0.34-5.60 UIU/ml EUTHYROID >5.60 UIU/ml HYPOTHYROIDPerformed By: #### DATTSH #### [facility] [address] [place] [address] Dr. Kali Haynes MAMM SCREEN 3D IFEANYI CADon 49-89-5703XZ MAMM SCREEN 3D IFEANYI CAD Patient: EPI DAILEY Exam Date: 05/16/2022 : 1950 Gender:F Ordering : DR AL SOTO D.O. Admission #: [id number] Family : Order #: [id number] CLICK HERE TO VIEW EXAM RADIOLOGY REPORT [...] Treatments None Family Cancers None LOCATION: [facility] BREAST COMPOSITION: Heterogeneously dense,which may [...] by: Dandre Ward M.D. on 05/16/2022 at 14:31NoOhio State East Hospital AUTO DIFFon 73-65-6129EVDZ #0.0 103/ulNormal0.0-0.1[facility] Medical CenterComment on above:Performed By: #### CBC #### [facility] [address] [place] [address] Dr. Kali HaynesBasophils/100 WBC (Bld)0.5 %Normal0.2-2.0[facility] Comment on above:Performed By: #### CBC #### [facility] [address] [place] [address] Dr. Kali Mendoza #0.2 103/ulNormal0.0-0.7ThMartin Memorial HospitalComment on above: Performed By: #### CBC #### [facility] [address] [place] [address] Dr. Kali Koenigosinophils/100 WBC (Bld)2.8 %Normal0.9-7.0[facility] Comment on above:Performed By: #### CBC #### [facility] [address] [place] [address] Dr. Kali Koenigrythrocyte distribution width (RBC) [Ratio]13.9 %Ghmzup96.0-15.0 [facility] CenterComment on above:Performed By: #### CBC #### [facility] [address] [place] [address] Dr. Kali HaynesHematocrit (Bld) [Volume fraction]43.0 %Odsqtc05.0-48.0[facility] CenterComment on above:Performed By: #### CBC #### [facility] [address] [place] [address] Dr. Kali HaynesHemoglobin (Bld) [Mass/Vol]14.5 g/xYAuzfet94.0-16.0The [facility] HospitalComment on above:Performed By: #### CBC #### [facility] [address] [place] [address] Dr. Kali Marie #0.01 10e3/ulNormal0.00-0.03The [facility] HospitalComment on above:Performed By: #### CBC #### [facility] [address] [place] [address] Dr. Kali Marie %0.2 %Normal0.0-0.5The [facility] HospitalComment on above: Performed By: #### CBC #### [facility] [address] [place] [address] Dr. Kali Estevez #3.9 103/ulCritically high1.2-3.8The [facility] Comment on above:Performed By: #### CBC #### [facility] [address] [place] [address] Dr. Kali De La Garzahocytes/100 WBC (Bld)59.7 %Clyxwt34.5-60.0The [facility] HospitalComment on above:Performed By: #### CBC #### [facility] [address] [place] [address] Dr. Kali MendezUAL DIFF REQNONormalThe [facility] HospitalComment on above: Performed By: #### CBC #### [facility] [address] [place] [address] Dr. Kali Corona (RBC) [Entitic mass]29.3 goUywsfo27.7-34.0The [facility] HospitalComment on above:Performed By: #### CBC #### [facility] [address] [place] [address] Dr. Kali Corona (RBC) [Mass/Vol]33.7 g/cNBiefat56.9-35.2The [facility] HospitalComment on above:Performed By: #### CBC #### [facility] [address] [place], [place] [address] Dr. Kali CoronaV (RBC) [Entitic vol]86.9 nACbsttd29.0-99.0The [facility] HospitalComment on above:Performed By: #### CBC #### [facility] [address] [place] [address] Dr. Kali Gurrola #0.4 103/ulNormal0.3-0.8The [facility] HospitalComment on above:Performed By: #### CBC #### [facility] [address] [place] [address] Dr. Kali Hernandesocytes/100 WBC (Bld)6.5 %Normal1.7-12.0The [facility] Comment on above:Performed By: #### CBC #### [facility] [address] [place] [address] Dr. Kali Shell #2.0 103/ulNormal1.4-6.5The [facility] HospitalComment on above:Performed By: #### CBC #### [facility] [address] [place] [address] Dr. Kali Keatingutrophils/100 WBC (Bld)30.3 %Critically low43.0-75.0The [facility] HospitalComment on above:Performed By: #### CBC #### [facility] [address] [place] [address] Dr. Kali Lorenzolet mean volume (Bld) [Entitic vol]11.1 fLNormal9.5-13.5The [facility] HospitalComment on above:Performed By: #### CBC #### [facility] [address] [place] [address] Dr. Kali HaynesPLT221 103/nzLkxpva203-429Mfn [facility] HospitalComment on above: Performed By: #### CBC #### [facility] [address] [place] [address] Dr. Kali HaynesRBC4.95 106/ulNormal4.20-5.40The [facility] HospitalComment on above:Performed By: #### CBC #### [facility] [address] [address] [address] Kali HaynesWBC6.5 103/ulNormal4.0-11.0The [facility] HospitalComment on above: Performed By: #### CBC #### [facility] [address] [place] [address] Dr. Kali García PROFILEon 66-06-5758VOFM-HDL RATIO NORMSEE BELOWSycamore Medical CenterComment on above:Result Comment: 3.3 - 4.4 LOW RISK 4.4 - 7.1 AVERAGE RISK 7.1 - 11.0 MODERATE RISK >11.0 HIGH RISKPerformed By: #### TSH, BMP, LIPID, ALT #### [facility] [address] [place] [address] Dr. Kali Andrewsesterol [Mass/Vol]151 mg/dLNormal<=200The [facility] Comment on above:Performed By: #### TSH, BMP, LIPID, ALT #### [facility] [address] [place] [address] Dr. Kali Andrewsesterol in HDL [Mass/Vol]39 mg/dLCritically bar35-92Pyc [facility] HospitalComment on above:Performed By: #### TSH, BMP, LIPID, ALT #### [facility] [address] [place] [address] Dr. Kali Andrewsesterol in LDL [Mass/Vol]85.6 mg/dLSycamore Medical CenterComment on above:Performed By: #### TSH, BMP, LIPID, ALT #### [facility] [address] [place] [address] Dr. Kali Cortes.total/Cholesterol in HDL [Mass ratio]3.9 {ratio} NormalThe [facility] HospitalComment on above:Performed By: #### TSH, BMP, LIPID, ALT #### [facility] [address] [place] [address] Dr. Kali Conner NORMAL> or = 60 mg/dl - LOW CARDIOVASCULAR RISK <40 mg/dl - HIGH CARDIOVASCULAR RISKNoCherrington HospitalComment on above:Performed By: #### TSH, BMP, LIPID, ALT #### [facility] [address] [address] [address] Kali Holguin CALC NORMALSEE BELOWSycamore Medical CenterComment on above:Result Comment: <100 mg/dl OPTIMAL 100 - 129 mg/dl NEAR OR ABOVE OPTIMAL 130 - 159 mg/dl BORDERLINE HIGH 160 - 189 mg/dl HIGH >190 mg/dl VERY HIGH Performed By: #### TSH, BMP, LIPID, ALT #### [facility] [address] [address] [address] Klai HaynesTriglyceride [Mass/Vol]132 mg/dLNormal<=150[facility] Comment on above:Performed By: #### TSH, BMP, LIPID, ALT #### [facility] [address] [address] [address] Kali HaynesVLDL CALC26.4 mg/dLSycamore Medical CenterComment on above: Performed By: #### TSH, BMP, LIPID, ALT #### [facility] [address] [place] [address] Dr. Kali HaynesPROF CHEM 8 (BAS METB)on 86-16-3441Dhxob gap [Moles/Vol]12.5 mmol/LNormalUniversity Hospitals Lake West Medical CenterComment on above:Performed By: #### TSH, BMP, LIPID, ALT #### [facility] [address] [address] [address] Kali HaynesCalcium [Mass/Vol]9.4 mg/dLNormal8.5-10.1[facility] Comment on above:Performed By: #### TSH, BMP, LIPID, ALT #### [facility] [address] [place] [address] Dr. Kali HaynesChloride [Moles/Vol]103 mmol/BVwzqme03-108Bde [facility] Comment on above:Performed By: #### TSH, BMP, LIPID, ALT #### [facility] [address] [address] [address] Kali HaynesCO2 [Moles/Vol]26.3 mmol/RKrsdps74.0-32.0[facility] Comment on above:Performed By: #### TSH, BMP, LIPID, ALT #### [facility] [address] [address] [address] Kali HaynesCreatinine [Mass/Vol]0.82 mg/dLNormal0.55-1.02The [facility] HospitalComment on above:Performed By: #### TSH, BMP, LIPID, ALT #### [facility] [address] [address] [address] Kali KoengiGFR-AF CITIZEN OF [place]>60Normal>=60The [facility] HospitalComment on above:Performed By: #### TSH, BMP, LIPID, ALT #### [facility] [address] [place] [address] Dr. Kali Sanz-NON AF CITIZEN OF [place]>60Normal>=60The [facility] HospitalComment on above:Performed By: #### TSH, BMP, LIPID, ALT #### [facility] [address] [place] [address] Dr. Kali HaynesGlucose [Mass/Vol]110 mg/dLCritically aqse89-093Bsy [facility] HospitalComment on above:Performed By: #### TSH, BMP, LIPID, ALT #### [facility] [address] [place] [address] Dr. Kali HaynesPotassium [Moles/Vol]3.8 mmol/LNormal3.5-5.1[facility] Comment on above:Performed By: #### TSH, BMP, LIPID, ALT #### [facility] [address] [place] [address] Dr. Kali Turnerdium [Moles/Vol]138 mmol/AHfrcwa541-131Qpg [facility] Comment on above:Performed By: #### TSH, BMP, LIPID, ALT #### [facility] [address] [place] [address] Dr. Kali HaynesUrea nitrogen [Mass/Vol]17.0 mg/dLNormal7.0-18.0The [facility] HospitalComment on above:Performed By: #### TSH, BMP, LIPID, ALT #### [facility] [address] [place] [address] Dr. Kali Yi nitrogen/Creatinine [Mass ratio]20.7 mg/mgNormalThe [facility] HospitalComment on above:Performed By: #### TSH, BMP, LIPID, ALT #### [facility] [address] [place] [address] Dr. Kali Moncada 67-62-1113MVO [Catalytic activity/Vol]36 U/MXdivuj57-80Lxx [facility] HospitalComment on above:Performed By: #### TSH, BMP, LIPID, ALT #### [facility] [address] [place] [address] Dr. Kali Goodman 37-92-6340REO7.788 uIU/mLCritically high0.358-3.740The [facility] HospitalComment on above:Performed By: #### TSH, BMP, LIPID, ALT #### [facility] [address] [place] [address] Dr. Kali Lara AUTO DIFFon 03-60-1504NGNF #0.0 103/ulNormal0.0-0.1The [facility] HospitalComment on above:Performed By: #### CBC #### [facility] [address] [place] [address] Dr. Kali Mofefttsophils/100 WBC (Bld)0.5 %Normal0.2-2.0[facility] Comment on above:Performed By: #### CBC #### [facility] [address] [place] [address] Dr. Kali Mendoza #0.2 103/ulNormal0.0-0.7The [facility] HospitalComment on above: Performed By: #### CBC #### [facility] [address] [place] [address] Dr. Kali Koenigosinophils/100 WBC (Bld)2.6 %Normal0.9-7.0The [facility] Comment on above:Performed By: #### CBC #### [facility] [address] [place] [address] Dr. Kali Koenigrythrocyte distribution width (RBC) [Ratio]14.4 %Uahail82.0-15.0 The [facility] HospitalComment on above:Performed By: #### CBC #### [facility] [address] [place] [address] Dr. Kali HaynesHematocrit (Bld) [Volume fraction]40.4 %Wxywpy11.0-48.0The [facility] HospitalComment on above:Performed By: #### CBC #### [facility] [address] [place] [address] Dr. Kali HaynesHemoglobin (Bld) [Mass/Vol]13.3 g/iANjrpou86.0-16.0The [facility] HospitalComment on above:Performed By: #### CBC #### [facility] [address] [place] [address] Dr. Kali Marie #0.01 10e3/ulNormal0.00-0.03The [facility] HospitalComment on above:Performed By: #### CBC #### [facility] [address] [place] [address] Dr. Kali Marie %0.2 %Normal0.0-0.5The [facility] HospitalComment on above: Performed By: #### CBC #### [facility] [address] [place] [address] Dr. Kali Estevez #3.0 103/ulNormal1.2-3.8The [facility] HospitalComment on above:Performed By: #### CBC #### [facility] [address] [place] [address] Dr. Kali Willismphocytes/100 WBC (Bld)48.6 %Qbugvo14.5-60.0The [facility] HospitalComment on above:Performed By: #### CBC #### [facility] [address] [place] [address] Dr. Kali MendezUAL DIFF REQNONormalThe [facility] HospitalComment on above: Performed By: #### CBC #### [facility] [address] [place] [address] Dr. Kali Adorno (RBC) [Entitic mass]29.0 mwEarxho05.7-34.0The [facility] HospitalComment on above:Performed By: #### CBC #### [facility] [address] [place] [address] Dr. Kali Corona (RBC) [Mass/Vol]32.9 g/oNDwjqbr42.9-35.2The [facility] HospitalComment on above:Performed By: #### CBC #### [facility] [address] [place] [address] Dr. Kali Corona (RBC) [Entitic vol]88.0 yVNkgxlm38.0-99.0The [facility] HospitalComment on above:Performed By: #### CBC #### [facility] [address] [place] [address] Dr. Kali Gurrola #0.5 103/ulNormal0.3-0.8The [facility] HospitalComment on above:Performed By: #### CBC #### [facility] [address] [place] [address] Dr. Kali Hernandesocytes/100 WBC (Bld)7.4 %Normal1.7-12.0The [facility] Comment on above:Performed By: #### CBC #### [facility] [address] [place] [address] Dr. Kali Shell #2.5 103/ulNormal1.4-6.5The [facility] HospitalComment on above:Performed By: #### CBC #### [facility] [address] [place] [address] Dr. Kali Keatingutrophils/100 WBC (Bld)40.7 %Critically low43.0-75.0The [facility] HospitalComment on above:Performed By: #### CBC #### [facility] [address] [place] [address] Dr. Kali Lorenzolet mean volume (Bld) [Entitic vol]11.3 fLNormal9.5-13.5The [facility] HospitalComment on above:Performed By: #### CBC #### [facility] [address] [address] [address] Kali HaynesPLT218 103/fcRppofn443-663Kqa [facility] HospitalComment on above: Performed By: #### CBC #### [facility] [address] [address] [address] Kali HaynesRBC4.59 106/ulNormal4.20-5.40The [facility] HospitalComment on above:Performed By: #### CBC #### [facility] [address] [address] [address] Kali HaynesWBC6.2 103/ulNormal4.0-11.0The [facility] HospitalComment on above: Performed By: #### CBC #### [facility] [address] [address] [address] Kali Anna for Release of Medical Recordson [id number] for Release of Medical [id number]#1.00CD:[address] [place] [address] for Release of Medical Records [id number]#1.00CD:[address] [place], [place] [address]Retail - Clinical Noteon 71-25-9524Iajdhs - Clinical Note [id number]#1.00CD:[address] [place], [place] [address]BASIC METABOLIC PANELon 94-99-7452Aqrfdxy [Mass/Vol]9.4 mg/dLNormal 8.6-10.3The [facility] HospitalComment on above:Order Comment: No: Do not add to previous drawPerformed By: #### 58346, 39936, 77505 #### [facility] [address] [place] [address], USAChloride [Moles/Vol]102 mmol/EFcjnip12-782Pkb [facility] HospitalComment on above:Order Comment: No: Do not add to previous drawPerformed By: #### 56191, 21387, 84169 #### [facility] [address] [place] [address], USACO2 [Moles/Vol]27 mmol/NIbsidf38-70Phh [facility] HospitalComment on above:Order Comment: No: Do not add to previous draw Performed By: #### 76108, 87316, 35524 #### [facility] [address] [place] [address], USACreatinine [Mass/Vol]0.63 mg/dLNormal0.60-1.20The [facility] HospitalComment on above:Order Comment: No: Do not add to previous drawPerformed By: #### 84042, 45293, 75453 #### [facility] [address] [place] [address], USAGFR/1.73 sq M predicted among blacks MDRD (S/P/Bld) [Vol rate/Area]mL/min/{1.73_m2}Normal>60The [facility] Comment on above:Order Comment: No: Do not add to previous drawPerformed By: #### 46742, 41582, 34581 #### [facility] [address] [place] [address], USAGFR/1.73 sq M predicted among non-blacks MDRD (S/P/Bld) [Vol rate/Area]mL/min/{1.73_m2}Normal>60The [facility] Comment on above:Order Comment: No: Do not add to previous drawPerformed By: #### 79029, 16866, 08035 #### [facility] [address] [place] [address], USAGlucose [Mass/Vol]129 mg/aRJrpf82-016Fyb [facility] HospitalComment on above:Order Comment: No: Do not add to previous drawPerformed By: #### 46450, 86951, 27648 #### [facility] [address] [place] [address], USAPotassium [Moles/Vol]3.2 mmol/LLow3.5-5.1The [facility] HospitalComment on above:Order Comment: No: Do not add to previous drawPerformed By: #### 81674, 47379, 87609 #### [facility] [address] [place] [address], USASodium [Moles/Vol]137 mmol/HXpztyh160-548Gtx [facility] HospitalComment on above:Order Comment: No: Do not add to previous drawPerformed By: #### 92873, 38618, 21813 #### [facility] [address] [place] [address], USAUrea nitrogen [Mass/Vol]11 mg/dLNormal7-25The [facility] HospitalComment on above:Order Comment: No: Do not add to previous drawPerformed By: #### 85900, 77399, 10933 #### [facility] [address] [address], USACBC COMPLETE BLOOD COUNTon 17-00-4614Iwiidhrvkbq distribution width (RBC) [Ratio]15.2 %High11.5-15.0The [facility] HospitalComment on above:Order Comment: No: Do not add to previous draw Performed By: #### 27440, 63706, 59343 #### [facility] [address] [place] [address], USAHematocrit (Bld) [Volume fraction]37.7 %Ynqvcp91.0-45.0The [facility] HospitalComment on above:Order Comment: No: Do not add to previous drawPerformed By: #### 37553, 72787, 08943 #### [facility] [address] [facility] [place] [address], USAHemoglobin (Bld) [Mass/Vol]12.7 g/qSEovkvc19.0-15.0The [facility] HospitalComment on above:Order Comment: No: Do not add to previous drawPerformed By: #### 22592, 65014, 72356 #### [facility] [address] [place] [address], [facility] [place] [Entitic mass]28.7 axNnmpgg37.0-33.0The [facility] HospitalComment on above:Order Comment: No: Do not add to previous drawPerformed By: #### 47761, 45162, 85597 #### [facility] [address] [place] [address], [facility] (RBC) [Mass/Vol]33.7 g/nJPfjwgv26.0-35.0The [facility] HospitalComment on above:Order Comment: No: Do not add to previous drawPerformed By: #### 43779, 84072, 01388 #### [facility] [address] [place] [address], [facility] (RBC) [Entitic vol]85.1 jCSupkqc97.0-98.0The [facility] HospitalComment on above:Order Comment: No: Do not add to previous drawPerformed By: #### 73473, 63914, 76372 #### [facility] [address] [place] [address], USANucleated RBC/100 WBC (Bld) [Ratio]0 %Normal0-0The [facility] HospitalComment on above:Order Comment: No: Do not add to previous drawPerformed By: #### 51699, 11027, 70442 #### [facility] [address] [place] [address], USAPLAT MQA189 10*3/pURsvywo754-345Dxj [facility] HospitalComment on above:Order Comment: No: Do not add to previous draw Performed By: #### 49160, 94785, 45003 #### [facility] [address] [place] [address], [facility] CENTERRBC (Bld) [#/Vol]4.43 10*6/uLNormal3.80-5.00The [facility] HospitalComment on above:Order Comment: No: Do not add to previous drawPerformed By: #### 71035, 84448, 97400 #### [facility] [address] [place] [address], [facility]CHIATRIC CENTERWBC (Bld) [#/Vol]10.34 10*3/uLNormal4.00-10.60The [facility] HospitalComment on above:Order Comment: No: Do not add to previous drawPerformed By: #### 96298, 98301, 50832 #### [facility] [address] [place] [address], [facility] CENTERCardiovascular Lab Reporton [id number] Lab ReportUnSelect Medical Specialty [facility] - [facility], Inc Patient Name: [facility] [place] Epi MR #: [id number] Department of Physician: Isaura Ching M.D. Division of Service Date: 11/15/2018 Cardiology Birthdate: 1950 Adult Cardiovascular Room #: 3AB [id number] [facility] [address] [address] Cardiovascular Laboratory Report FINAL IMPRESSIONS: 1. Mild [...] is most consistent with a type 2 rsg-IC-uzppcavwl myocardial infarction/supply-demand mismatch. This does not represent an acute coronary syndrome and the patient does not require dual antiplatelet therapy. 2. Aggressive cardiovascular risk factor modification. 3. Optimization of medical management; given plaque disease, aspirin, eqqwdmla-rg-jzlo intensity statin therapy, a beta heraclio. If left ventricular hypertrophy is conformed, would recommend addition of an angiotension concerting enzyme inhibitor or receptor heraclio. 4. Further recommendations deferred to the inpatient [...] right internal jugular vein was obtained. A 6-Mongolian 11 cm sheath was inserted without difficulty. [...] to access the right radial artery. A 6-Mongolian Glidesheath was inserted without difficulty. Bilateral selective [...] Camilo M.D. Date Trans: 11/16/2018 09:01 Tressa/alisa DN_JN:[id number] Medical CenterLIVER BATTERYon 80-29-8192Gsftazw [Mass/Vol]3.6 g/dLNormal3.5-5.7The [facility] HospitalComment on above:Order Comment: No: Do not add to previous draw Performed By: #### 50434, 44386, 38617 #### [facility] [address] [place] [address], USAALKALINE NPKMVK77 IU/FXjhctk96-564Zai [facility] HospitalComment on above:Order Comment: No: Do not add to previous draw Performed By: #### 75437, 06489, 60969 #### [facility] [address] [place] [address], USAALT [Catalytic activity/Vol]63 U/LHigh7-52The [facility] HospitalComment on above:Order Comment: No: Do not add to previous drawPerformed By: #### 01180, 64799, 82754 #### [facility] [address] [place] [address], USAAST [Catalytic activity/Vol]19 U/TMrjzur70-37Nnl [facility] HospitalComment on above:Order Comment: No: Do not add to previous drawPerformed By: #### 57191, 02236, 71735 #### [facility] [address] [place] [address], USABilirubin [Mass/Vol]0.5 mg/dLNormal0.3-1.0The [facility] HospitalComment on above:Order Comment: No: Do not add to previous drawPerformed By: #### 78909, 95282, 48973 #### [facility] [address] [place] [address], USABilirubin.direct [Mass/Vol]0.1 mg/dLNormal0.0-0.2The [facility] HospitalComment on above:Order Comment: No: Do not add to previous drawPerformed By: #### 27522, 81626, 59598 #### [facility] [address] [place] [address], USAProtein [Mass/Vol]6.5 g/dLNormal6.0-8.3The [facility] HospitalComment on above:Order Comment: No: Do not add to previous drawPerformed By: #### 35715, 47034, 71281 #### [facility] [address] [place] [address], USAMAGNESIUM BLOODon 94-70-9793Xlcadbbxn [Mass/Vol]1.8 mg/dL Low1.9-2.7The [facility] HospitalComment on above:Order Comment: No: Do not add to previous drawPerformed By: #### 82132, 69104, 82209 #### [facility] [address] [place] [address], USAPHOSPHORUS BLOODon 83-04-8097Qbjcekhai [Mass/Vol]3.1 mg/dL Normal2.5-5.0The [facility] HospitalComment on above:Order Comment: No: Do not add to previous drawPerformed By: #### 81542, 20660, 34544 #### [facility] [address] [place] [address], USABASIC METABOLIC PANELon 19-44-3893Msmhlig [Mass/Vol]9.0 mg/dLNormal8.6-10.3The [facility] HospitalComment on above:Order Comment: No: Do not add to previous drawPerformed By: #### 42811, 95875, 56856 #### [facility] [address] [place] [address], USAChloride [Moles/Vol]103 mmol/LIgxgok67-028Uuh [facility] HospitalComment on above:Order Comment: No: Do not add to previous drawPerformed By: #### 08314, 00054, 29533 #### [facility] [address] [place] [address], USACO2 [Moles/Vol]25 mmol/LOupcsf55-29Bqc [facility] HospitalComment on above:Order Comment: No: Do not add to previous draw Performed By: #### 84941, 74349, 89317 #### [facility] [address] [place] [address], USACreatinine [Mass/Vol]0.65 mg/dLNormal0.60-1.20The [facility] HospitalComment on above:Order Comment: No: Do not add to previous drawPerformed By: #### 18388, 71022, 06728 #### [facility] [address] [place] [address], USAGFR/1.73 sq M predicted among blacks MDRD (S/P/Bld) [Vol rate/Area]mL/min/{1.73_m2}Normal>60The [facility] Comment on above:Order Comment: No: Do not add to previous drawPerformed By: #### 36452, 19153, 45556 #### [facility] [address] [place] [address], USAGFR/1.73 sq M predicted among non-blacks MDRD (S/P/Bld) [Vol rate/Area]mL/min/{1.73_m2}Normal>60The [facility] Comment on above:Order Comment: No: Do not add to previous drawPerformed By: #### 82625, 86203, 81684 #### [facility] [address] [place] [address], USAGlucose [Mass/Vol]192 mg/lCAsak97-075San [facility] HospitalComment on above:Order Comment: No: Do not add to previous drawPerformed By: #### 74969, 73263, 09625 #### [facility] [address] [place] [address], USAPotassium [Moles/Vol]3.0 mmol/LLow3.5-5.1The [facility] HospitalComment on above:Order Comment: No: Do not add to previous drawPerformed By: #### 27421, 74215, 58469 #### [facility] [address] [place] [address], USASodium [Moles/Vol]138 mmol/PVayibv932-991Pfu [facility] HospitalComment on above:Order Comment: No: Do not add to previous drawPerformed By: #### 55461, 37575, 98377 #### [facility] [address] [place] [address], USAUrea nitrogen [Mass/Vol]10 mg/dLNormal7-25The [facility] HospitalComment on above:Order Comment: No: Do not add to previous drawPerformed By: #### 73170, 98504, 25462 #### [facility] [address] [place] [address], USALIVER BATTERYon 81-40-8342Wxjkgqq [Mass/Vol]3.3 g/dLLow 3.5-5.7The [facility] HospitalComment on above:Order Comment: No: Do not add to previous drawPerformed By: #### 06966, 57270, 95729 #### [facility] [address] [place] [address], USAALKALINE ICKICI78 IU/LBcxezs23-723Axd [facility] HospitalComment on above:Order Comment: No: Do not add to previous draw Performed By: #### 97355, 02948, 21971 #### [facility] [address] [place] [address], USAALT [Catalytic activity/Vol]70 U/LHigh7-52The [facility] HospitalComment on above:Order Comment: No: Do not add to previous drawPerformed By: #### 64778, 60235, 39334 #### [facility] [address] [place] [address], USAAST [Catalytic activity/Vol]22 U/FAklhwt73-22Bzl [facility] HospitalComment on above:Order Comment: No: Do not add to previous drawPerformed By: #### 49454, 01616, 63493 #### [facility] [address] [place] [address], USABilirubin [Mass/Vol]0.4 mg/dLNormal0.3-1.0The [facility] HospitalComment on above:Order Comment: No: Do not add to previous drawPerformed By: #### 38109, 90747, 48646 #### [facility] [address] [place] [address], USABilirubin.direct [Mass/Vol]0.1 mg/dLNormal0.0-0.2The [facility] HospitalComment on above:Order Comment: No: Do not add to previous drawPerformed By: #### 73626, 00620, 84732 #### [facility] [address] [place] [address], USAProtein [Mass/Vol]6.2 g/dLNormal6.0-8.3The [facility] HospitalComment on above:Order Comment: No: Do not add to previous drawPerformed By: #### 52213, 91411, 27909 #### [facility] [address] [place] [address], USAUFH HEPARIN ASSAYon 10-97-4654QOKHDIMMMBZSJM HEPARIN0.71 IU/mLHigh0.30-0.70The [facility] HospitalComment on above:Result Comment: Rivaroxaban and Apixaban will interfere with the anti Xa assay used to monitor UFH and LMWH.Performed By: #### 81741 #### [facility] [address] [place] [address], USABASIC METABOLIC PANELon 33-49-5953Vgwsiun [Mass/Vol]8.9 mg/dLNormal8.6-10.3The [facility] HospitalComment on above:Order Comment: No: Do not add to previous draw Criteria for reflexing a culture was not met. Please call the lab at 7668 within 24 hours of collection time if culture is neededPerformed By: #### 96104 #### [facility] [address] [place] [address], USAChloride [Moles/Vol]105 mmol/INadxjs04-607Bej [facility] HospitalComment on above:Order Comment: No: Do not add to previous draw Criteria for reflexing a culture was not met. Please call the lab at 7668 within 24 hours of collection time if culture is neededPerformed By: #### 18630 #### [facility] [address] [place] [address], USACO2 [Moles/Vol]25 mmol/DIfkzfk75-45Aef [facility] HospitalComment on above:Order Comment: No: Do not add to previous draw Criteria for reflexing a culture was not met. Please call the lab at 7668 within 24 hours of collection time if culture is neededPerformed By: #### 34848 #### [facility] [address] [place] [address], USACreatinine [Mass/Vol]0.64 mg/dLNormal0.60-1.20The [facility] HospitalComment on above:Order Comment: No: Do not add to previous draw Criteria for reflexing a culture was not met. Please call the lab at 7668 within 24 hours of collection time if culture is neededPerformed By: #### 95142 #### [facility] [address] [address], USAGFR/1.73 sq M predicted among blacks MDRD (S/P/Bld) [Vol rate/Area]mL/min/{1.73_m2}Normal>60The [facility] Comment on above:Order Comment: No: Do not add to previous draw Criteria for reflexing a culture was not met. Please call the lab at 7668 within 24 hours of collection time if culture is neededPerformed By: #### 27537 #### [facility] [address] [facility] [place] [address], USAGFR/1.73 sq M predicted among non-blacks MDRD (S/P/Bld) [Vol rate/Area]mL/min/{1.73_m2}Normal>60The [facility] Comment on above:Order Comment: No: Do not add to previous draw Criteria for reflexing a culture was not met. Please call the lab at 7668 within 24 hours of collection time if culture is neededPerformed By: #### 41254 #### [facility] [address] [facility] [place] [address], USAGlucose [Mass/Vol]129 mg/yJAbpe88-442Ouf [facility] HospitalComment on above:Order Comment: No: Do not add to previous draw Criteria for reflexing a culture was not met. Please call the lab at 7668 within 24 hours of collection time if culture is neededPerformed By: #### 12315 #### [facility] [address] [facility] [place] [address], USAPotassium [Moles/Vol]3.6 mmol/LNormal3.5-5.1The [facility] HospitalComment on above:Order Comment: No: Do not add to previous draw Criteria for reflexing a culture was not met. Please call the lab at 7668 within 24 hours of collection time if culture is neededPerformed By: #### 33797 #### [facility] [address] [facility] [place] [place] [address], [facility] PSY[facility]AT[facility] CENTERSodium [Moles/Vol]137 mmol/XCjufvz779-058Vwc [facility] HospitalComment on above:Order Comment: No: Do not add to previous draw Criteria for reflexing a culture was not met. Please call the lab at 7668 within 24 hours of collection time if culture is neededPerformed By: #### 07025 #### [facility] [address] [facility] [place] [place] [address], USAUrea nitrogen [Mass/Vol]11 mg/dLNormal7-25The [facility] HospitalComment on above:Order Comment: No: Do not add to previous draw Criteria for reflexing a culture was not met. Please call the lab at [phone] within 24 hours of collection time if culture is neededPerformed By: #### 73635 #### [facility] [address] [facility] [place] [place] [address], [facility] PSYCHIATRIC CENTERCB W/DIFFon 97-80-5617ZGI BASOPHILS0.0 10*3/uLNormal 0.0-0.2The [facility] HospitalComment on above:Order Comment: No: Do not add to previous draw Criteria for reflexing a culture was not met. Please call the lab at 7668 within 24 hours of collection time if culture is neededPerformed By: #### 65348 #### [facility] [address] [facility] [place] [place] [address], [facility] PSYCHIATRIC CENTERABS IMM GRANS0.0 10*3/uLNormal0.0-0.2The [facility] HospitalComment on above:Order Comment: No: Do not add to previous draw Criteria for reflexing a culture was not met. Please call the lab at [phone] within 24 hours of collection time if culture is neededPerformed By: #### [id number] #### [facility] [address] [facility] [place] [place] [address], USAABS NEUTROPHILS5.0 10*3/uLNormal1.6-7.6The [place] [facility] Harding HospitalComment on above:Order Comment: No: Do not add to previous draw Criteria for reflexing a culture was not met. Please call the lab at 7668 within 24 hours of collection time if culture is neededPerformed By: #### [id number] #### [facility] [address] [facility] [place] [address], USABasophils/100 WBC (Bld)0.1 %Normal0.0-1.0The [place] [facility] HospitalComment on above:Order Comment: No: Do not add to previous draw Criteria for reflexing a culture was not met. Please call the lab at 7668 within 24 hours of collection time if culture is neededPerformed By: #### [id number] #### [facility] [address] [facility] [place] [address], USAEosinophils (Bld) [#/Vol]0.2 10*3/uLNormal0.0-0.5The [place] [facility] HospitalComment on above:Order Comment: No: Do not add to previous draw Criteria for reflexing a culture was not met. Please call the lab at 7668 within 24 hours of collection time if culture is neededPerformed By: #### [id number] #### [facility] [address] [facility] [place] [address], USAEosinophils/100 WBC (Bld)1.8 %Normal0.0-6.0The [place] [facility] HospitalComment on above:Order Comment: No: Do not add to previous draw Criteria for reflexing a culture was not met. Please call the lab at 7668 within 24 hours of collection time if culture is neededPerformed By: #### [id number] #### [facility] [address] [place] [address], USAErythrocyte distribution width (RBC) [Ratio]15.9 %High 11.5-15.0The [place] [facility] HospitalComment on above:Order Comment: No: Do not add to previous draw Criteria for reflexing a culture was not met. Please call the lab at 7668 within 24 hours of collection time if culture is neededPerformed By: #### [id number] #### [facility] [address] [place] [address], USAHematocrit (Bld) [Volume fraction]36.8 %Bkmtwh69.0-45.0The [place] [facility] HospitalComment on above:Order Comment: No: Do not add to previous draw Criteria for reflexing a culture was not met. Please call the lab at 7668 within 24 hours of collection time if culture is neededPerformed By: #### [id number] #### [facility] [address] [facility] [address], USAHemoglobin (Bld) [Mass/Vol]12.1 g/sFIrtxoj90.0-15.0The [place] [facility] HospitalComment on above:Order Comment: No: Do not add to previous draw Criteria for reflexing a culture was not met. Please call the lab at 7668 within 24 hours of collection time if culture is neededPerformed By: #### [id number] #### [facility] [address] [facility] [address], USAIMMATURE GRANS0.4 %Normal0.0-1.0The [place] [facility]ing HospitalComment on above:Order Comment: No: Do not add to previous draw Criteria for reflexing a culture was not met. Please call the lab at 7668 within 24 hours of collection time if culture is neededPerformed By: #### [id number] #### [facility] [address] [place] [address], USALymphocytes (Bld) [#/Vol]4.7 10*3/uLHigh1.2-4.0The [place] [facility] HospitalComment on above:Order Comment: No: Do not add to previous draw Criteria for reflexing a culture was not met. Please call the lab at 7668 within 24 hours of collection time if culture is neededPerformed By: #### [id number] #### [facility] [address] [facility] [place] [address], [facility] CENTERLymphocytes/100 WBC (Bld)45.2 %High20.0-45.0The [place] [facility] HospitalComment on above:Order Comment: No: Do not add to previous draw Criteria for reflexing a culture was not met. Please call the lab at 7668 within 24 hours of collection time if culture is neededPerformed By: #### 70521 #### [facility] [address] [facility] [place] [address], [facility] (RBC) [Entitic mass]28.7 pfRiamkb83.0-33.0The [place] [facility] HospitalComment on above:Order Comment: No: Do not add to previous draw Criteria for reflexing a culture was not met. Please call the lab at 7668 within 24 hours of collection time if culture is neededPerformed By: #### [id number] #### [facility] [address] [facility] [place] [address], [facility]AT[facility] CENTERMCHC (RBC) [Mass/Vol]32.9 g/bZNuhgeq54.0-35.0The [place] [facility] HospitalComment on above:Order Comment: No: Do not add to previous draw Criteria for reflexing a culture was not met. Please call the lab at 7668 within 24 hours of collection time if culture is neededPerformed By: #### [id number] #### [facility] [address] [facility]. [place] [id number], [facility] (RBC) [Entitic vol]87.2 rSGqxdcp03.0-98.0The [place] [facility] HospitalComment on above:Order Comment: No: Do not add to previous draw Criteria for reflexing a culture was not met. Please call the lab at 7668 within 24 hours of collection time if culture is neededPerformed By: #### [id number] #### [facility] [address] [facility] [place] [address], [facility] CENTERMonocytes (Bld) [#/Vol]0.5 10*3/uLNormal0.1-1.0The [place] [facility] HospitalComment on above:Order Comment: No: Do not add to previous draw Criteria for reflexing a culture was not met. Please call the lab at 7668 within 24 hours of collection time if culture is neededPerformed By: #### 69050 #### [facility] [address] [place] [address], USAMONOS4.5 %Low5.0-12.0The [place] [facility] HospitalComment on above:Order Comment: No: Do not add to previous draw Criteria for reflexing a culture was not met. Please call the lab at 7668 within 24 hours of collection time if culture is neededPerformed By: #### [id number] #### [facility] [address] [place] [address], USANeutrophils/100 WBC (Bld)48.0 %Bmvcjp20.0-72.0The [place] [facility] HospitalComment on above:Order Comment: No: Do not add to previous draw Criteria for reflexing a culture was not met. Please call the lab at 7668 within 24 hours of collection time if culture is neededPerformed By: #### [id number] #### [facility] [address] [facility] [place] [address], USANucleated RBC/100 WBC (Bld) [Ratio]0 %Normal0-0The [place] [facility] HospitalComment on above:Order Comment: No: Do not add to previous draw Criteria for reflexing a culture was not met. Please call the lab at 7668 within 24 hours of collection time if culture is neededPerformed By: #### [id number] #### [facility] [address] [facility] [place] [address], USAPLAT ORE715 10*3/fEOmdwqf111-449Axa [facility] HospitalComment on above:Order Comment: No: Do not add to previous draw Criteria for reflexing a culture was not met. Please call the lab at 7668 within 24 hours of collection time if culture is neededPerformed By: #### [id number] #### [facility] [address] [place] [address], [facility] PSY[facility]AT[facility] CENTERRBC (Bld) [#/Vol]4.22 10*6/uLNormal3.80-5.00The [place] [facility] HospitalComment on above:Order Comment: No: Do not add to previous draw Criteria for reflexing a culture was not met. Please call the lab at 7668 within 24 hours of collection time if culture is neededPerformed By: #### [id number] #### [facility] [address] [place] [address], [facility] PSYCHIATR[facility] CENTERWBC (Bld) [#/Vol]10.38 10*3/uLNormal4.00-10.60The [place] [facility] HospitalComment on above:Order Comment: No: Do not add to previous draw Criteria for reflexing a culture was not met. Please call the lab at 7668 within 24 hours of collection time if culture is neededPerformed By: #### 69928 #### [place] [address], [facility]ENTERCHEST AND [facility] [id number] AND [facility] Department of Radiology [address] [place] [address] [phone] Patient Name: EPI DAILEY : 1950 Sex: F Age: Race: White Pt. Location: [id number] Patient Status: I Ordered Date: 11/14/2018 8:00:00 [...] * Small bilateral pleural effusions. Approved by:Gagan Raygoza on 11/14/2018 6:42 PM EDT. I, Jamey Hamilton, have reviewed the images and report and concur with these findings. Electronically signed by:Jamey Hamilton. Transcribed by: [email or web address], User Resident: GAGAN RAYGOZA Electronically Signed by: JAMEY HAMILTON @ 11/15/2018 09:14 AM I personally read this/these film(s) with this residentMercy Health Defiance HospitalComment on above:Order Comment: No: Do not add to previous draw Criteria for reflexing a culture was not met. Please call the lab at 7668 within 24 hours of collection time if culture is neededLIPID PROFILEon [id number] [Mass/Vol]113 mg/qJSic133-544Ziu [facility] HospitalComment on above:Order Comment: No: Do not add to previous draw Criteria for reflexing a culture was not met. Please call the lab at 7668 within 24 hours of collection time if culture is neededResult Comment: CHOLESTEROL REFERENCE RANGE: 20 YEARS AND OLDER CARDIOVASCULAR RISK Less than 200 mg/dl Low Risk 200 to 239 mg/dl Borderline Risk 240 mg/dl and greater High RiskPerformed By: #### [id number] #### [facility] [address] [place] [address], USACholesterol in HDL [Mass/Vol]29 mg/hMIbmefi23-04Foc [facility] HospitalComment on above:Order Comment: No: Do not add to previous draw Criteria for reflexing a culture was not met. Please call the lab at 7668 within 24 hours of collection time if culture is neededResult Comment: Slight variation in normal range could be due to gender and/or age. HDL CHOLESTEROL REFERENCE RANGE: 20 years and older Cardiovascular Risk > or =60 mg/dL Desirable 40 TO 59 mg/dL Low Risk <40 mg/dL High RiskPerformed By: #### 55116 #### [facility] [address] [facility] [place] [address], USACholesterol in LDL [Mass/Vol]61 mg/dLNormal0-130The [facility] HospitalComment on above:Order Comment: No: Do not add to previous draw Criteria for reflexing a culture was not met. Please call the lab at 7668 within 24 hours of collection time if culture is neededResult Comment: LDL IS A CALCULATION LDL IS ONLY VALID IF THE TRIG IS LESS THAN 400.Performed By: #### 77392 #### [facility] [address] [facility] [place] [address], USACholesterol.total/Cholesterol in HDL [Mass ratio]3.9 {ratio}Normal0.0-4.5The [facility] HospitalComment on above: Order Comment: No: Do not add to previous draw Criteria for reflexing a culture was not met. Please call the lab at 7668 within 24 hours of collection time if culture is neededPerformed By: #### 64565 #### [facility] [address] [place] [address], USANON-HDL FGOZIJCZMBU41 mg/dLNormalThe [facility] HospitalComment on above:Order Comment: No: Do not add to previous draw Criteria for reflexing a culture was not met. Please call the lab at 7668 within 24 hours of collection time if culture is neededPerformed By: #### [id number] #### [facility] [address] [facility] [place] [address], USATriglyceride [Mass/Vol]113 mg/zRLxjjeo89-328Xvx [facility] HospitalComment on above:Order Comment: No: Do not add to previous draw Criteria for reflexing a culture was not met. Please call the lab at 7668 within 24 hours of collection time if culture is neededResult Comment: TRIGLYCERIDE REFERENCE RANGE: 20 YEARS AND OLDER CARDIOVASCULAR RISK LESS THAN 150 mg/dl LOW RISK 150 TO 199 mg/dl BORDERLINE RISK 200 mg/dl AND GREATER HIGH RISKPerformed By: #### [id number] #### [address] [place] [address], USAVLDL CHOL23 mg/dLNormal0-40The [facility] HospitalComment on above:Order Comment: No: Do not add to previous draw Criteria for reflexing a culture was not met. Please call the lab at 7668 within 24 hours of collection time if culture is neededPerformed By: #### 48762 #### [address] [place] [address], USAMAGNESIUM BLOODon [id number] [Mass/Vol]2.0 mg/dL Normal1.9-2.7The [facility] HospitalComment on above:Order Comment: No: Do not add to previous draw Criteria for reflexing a culture was not met. Please call the lab at 7668 within 24 hours of collection time if culture is neededPerformed By: #### 52730 #### [address] [place] [address], USAMRI LUMBAR SPINE W WO CONTRASTon [id number] LUMBAR SPINE W WO CONTRASTUnACMC Healthcare [facility] Department of Radiology [address] [place] [address] Patient Name: EPI DAILEY : 1950 Sex: F Age: Race: White Pt. Location: [address] [place] [address] Patient Status: I Ordered Date: 11/13/2018 7:45:00 [...] spine. Electronically signed by:Kunal Bloom. Transcribed by: [email or web address], User Resident: Electronically Signed by: KUNAL BLOOM @ 11/15/2018 02:54 PMNormalThe [facility] Harding HospitalComment on above:Order Comment: No: Do not add to previous drawPROTHROMBIN TIMEon [id number] Coag (PPP) [Relative time] 1.04 {INR}Normal0.91-1.16The [facility] HospitalComment on above:Order Comment: No: Do not add to previous draw Criteria for reflexing a culture was not met. Please call the lab at 7668 within 24 hours of collection time if culture is neededResult Comment: ACCCP RECOMMENDED INR FOR WARFARIN THERAPY ------- CONDITION INR PROPHYLAXIS OF VENOUS THROMBOSIS 2-3 (HIGH-RISK SURGERY) TREATMENT OF VENOUS THROMBOSIS 2-3 TREATMENT OF PULMONARY EMBOLISM 2-3 PREVENTION OF SYSTEMIC EMBOLISM: 2-3 ACUTE MYOCARDIAL INFARCTION TISSUE HEART VALVES VALVULAR HEART DISEASE ATRIAL FIBRILLATION RECURRENT SYSTEMIC EMBOLISM MECHANICAL HEART VALVE 2.5-3.5 FROM: ORAL ANTICOAGULANTS. MECHANISM OF ACTION, CLINICAL EFFECTIVENESS, AND OPTIMAL THERAPEUTIC RANGE. CHEST 1995;108:231S-246S.Performed By: #### [id number] #### [facility] [address] [place] [address], USAPT Coag (PPP) [Time]13.6 oVpakhg66.3-14.8The [facility] HospitalComment on above:Order Comment: No: Do not add to previous draw Criteria for reflexing a culture was not met. Please call the lab at 7668 within 24 hours of collection time if culture is neededResult Comment: ALL RESULTS MUST BE INTERPRETED WITH RESPECT TO BLOOD DRAWING ARTIFACT OR DILUTION ERROR OF ANTICOAGULANT AT THE TIME OF SAMPLING.Performed By: #### [id number] #### [facility] [address] [facility] [place] [address], USATROPONIN-Ion [id number] I.cardiac [Mass/Vol]1.03 ng/mLCritically high0.00-0.04The [facility] HospitalComment on above:Order Comment: No: Do not add to previous drawResult Comment: M-PREVIOUS CRITICAL RESULT REFERENCE RANGES: 0.00 - 0.04 ng/ml NORMAL 0.05 - 0.50 ng/ml INDETERMINATE > 0.50 ng/ml CONSISTENT WITH AN M.I.Performed By: #### 73567 #### [facility] [address] [facility] [place] [address], USAUFH HEPARIN ASSAYon [id number] HEPARIN0.21 IU/mLLow0.30-0.70The [facility] HospitalComment on above:Result Comment: Rivaroxaban and Apixaban will interfere with the anti Xa assay used to monitor UFH and LMWH.Performed By: #### 93356 #### [facility] [address] [facility] [place] [address], USAUNFRACTIONATED HEPARIN0.26 IU/mLLow0.30-0.70The [facility] HospitalComment on above:Result Comment: Rivaroxaban and Apixaban will interfere with the anti Xa assay used to monitor UFH and LMWH.Performed By: #### [id number] #### [facility] [address] [facility] [place] [address], USAUNFRACTIONATED HEPARIN0.21 IU/mLLow0.30-0.70The [facility] HospitalComment on above:Result Comment: Rivaroxaban and Apixaban will interfere with the anti Xa assay used to monitor UFH and LMWH.Performed By: #### 60248 #### [facility] [address] [place] [address], USAUNFRACTIONATED HEPARIN<0.10Critically low0.30-0.70The [facility] HospitalComment on above:Result Comment: Rivaroxaban and Apixaban will interfere with the anti Xa assay used to monitor UFH and LMWH. RESULTS CHECKED AND CALLED. ACCURATELY READ BACK BY WILIAM DOMINGO RN @0058Performed By: #### 91497 #### [facility] [address] [place] [address], USABASIC METABOLIC PANELon [id number] [Mass/Vol]9.2 mg/dLNormal8.6-10.3The [facility] HospitalComment on above:Order Comment: No: Do not add to previous drawPerformed By: #### 23777, 68481, 58493 #### [facility] [address] [place] [address], USAChloride [Moles/Vol]103 mmol/EKtxfys03-570Dzc [facility] HospitalComment on above:Order Comment: No: Do not add to previous drawPerformed By: #### 69046, 48824, 68204 #### [facility] [address] [place] [address], USACO2 [Moles/Vol]22 mmol/ZXflugk46-64Coi [facility] HospitalComment on above:Order Comment: No: Do not add to previous draw Performed By: #### 54359, 87401, 62272 #### [facility] [address] [place] [address], USACreatinine [Mass/Vol]0.74 mg/dLNormal0.60-1.20The [facility] HospitalComment on above:Order Comment: No: Do not add to previous drawPerformed By: #### 64264, 82116, 70444 #### [facility] [address] [place] [address], USAGFR/1.73 sq M predicted among blacks MDRD (S/P/Bld) [Vol rate/Area]mL/min/{1.73_m2}Normal>60The [facility] Comment on above:Order Comment: No: Do not add to previous drawPerformed By: #### 36709, 95161, 98541 #### [facility] [address] [place] [address], USAGFR/1.73 sq M predicted among non-blacks MDRD (S/P/Bld) [Vol rate/Area]mL/min/{1.73_m2}Normal>60The [facility] Comment on above:Order Comment: No: Do not add to previous drawPerformed By: #### 64745, 09535, 18644 #### [facility] [address] [place] [address], USAGlucose [Mass/Vol]116 mg/dMYufj37-128Alm [facility] HospitalComment on above:Order Comment: No: Do not add to previous drawPerformed By: #### 14121, 28362, 94220 #### [facility] [address] [place] [address], USAPotassium [Moles/Vol]3.5 mmol/LNormal3.5-5.1The [facility] HospitalComment on above:Order Comment: No: Do not add to previous drawPerformed By: #### 48534, 49855, 25274 #### [facility] [address] [place] [address], USASodium [Moles/Vol]137 mmol/TJmwefi612-447Hcu [facility] HospitalComment on above:Order Comment: No: Do not add to previous drawPerformed By: #### 50261, 29071, 77803 #### [facility] [address] [place] [address], USAUrea nitrogen [Mass/Vol]14 mg/dLNormal7-25The [facility] HospitalComment on above:Order Comment: No: Do not add to previous drawPerformed By: #### 76502, 90076, 19215 #### [facility] [address] [place] [id number], USABNP (B-TYPE NATRIURETIC PEPTIDE)on 42-61-1409Kfwxyahtlnq peptide B (Bld) [Mass/Vol]695 pg/mLHigh0-100The [facility] HospitalComment on above:Order Comment: Yes: Add to Previous draw if ableResult Comment: Given the appropriate clinical setting a BNP result of >100 pg/mL indicates congestive heart failure.Performed By: #### 98547, 84612 #### [facility] [address] [facility] [place] [address], USACBC W/DIFFon [id number] BASOPHILS0.0 10*3/uLNormal 0.0-0.2The [facility] HospitalComment on above:Performed By: #### 20488 #### [facility] [address] [facility] [address], USAABS IMM GRANS0.1 10*3/uLNormal0.0-0.2The [facility] HospitalComment on above:Performed By: #### 14044 #### [facility] [address] [place] [address], USAABS NEUTROPHILS9.9 10*3/uLHigh1.6-7.6The [facility] HospitalComment on above:Performed By: #### 46488 #### [facility] [address] [place] [address], USABasophils/100 WBC (Bld)0.1 %Normal0.0-1.0The [facility] HospitalComment on above:Performed By: #### 86544 #### [facility] [address] [place] [address], USAEosinophils (Bld) [#/Vol]0.0 10*3/uLNormal0.0-0.5The [facility] HospitalComment on above:Performed By: #### 15871 #### [facility] [address] [facility] [place] [address], USAEosinophils/100 WBC (Bld)0.2 %Normal0.0-6.0The [facility] HospitalComment on above:Performed By: #### 92102 #### [facility] [address] [facility] [place] [address], USAErythrocyte distribution width (RBC) [Ratio]15.9 %High 11.5-15.0The [facility] HospitalComment on above:Performed By: #### 64839 #### [facility] [address] [facility] [place] [address], USAHematocrit (Bld) [Volume fraction]36.8 %Zeawtt06.0-45.0The [facility] HospitalComment on above:Performed By: #### 81565 #### [facility] [address] [facility] [place] [address], USAHemoglobin (Bld) [Mass/Vol]12.4 g/bEBsfymm45.0-15.0The [facility] HospitalComment on above:Performed By: #### 67604 #### [facility] [address] [facility] [place] [address], USAIMMATURE GRANS0.6 %Normal0.0-1.0The [facility] HospitalComment on above:Performed By: #### 83438 #### [facility] [address] [facility] [place] [address], USALymphocytes (Bld) [#/Vol]5.0 10*3/uLHigh1.2-4.0The [facility] HospitalComment on above:Performed By: #### 94389 #### [facility] [address] [place] [address], USALymphocytes/100 WBC (Bld)32.2 %Qtvqog57.0-45.0The [facility] HospitalComment on above:Performed By: #### 63718 #### [facility] [address] [place] [id number], [facility] (RBC) [Entitic mass]28.8 xvDtgdea37.0-33.0The [facility] HospitalComment on above:Performed By: #### 72310 #### [facility] [address] [place] [id number], [facility] CENTERMCHC (RBC) [Mass/Vol]33.7 g/xRRsbzpq40.0-35.0The [facility] HospitalComment on above:Performed By: #### 70391 #### [facility] [address] [place] [address], [facility]ATR[facility] CENTERMCV (RBC) [Entitic vol]85.6 sZJjtudz12.0-98.0The [facility] HospitalComment on above:Performed By: #### 33407 #### [facility] [address] [address], USAMonocytes (Bld) [#/Vol]0.5 10*3/uLNormal0.1-1.0The [facility] HospitalComment on above:Performed By: #### 97736 #### [facility] [address] [place] [id number], USAMONOS3.3 %Low5.0-12.0The [facility] HospitalComment on above:Performed By: #### 97846 #### [facility] [address] [place] [address], USANeutrophils/100 WBC (Bld)63.6 %Yqmwra02.0-72.0The [facility]ing HospitalComment on above:Performed By: #### 93809 #### [facility] [address] [place] [address], USANucleated RBC/100 WBC (Bld) [Ratio]0 %Normal0-0The [facility] State Harding HospitalComment on above:Performed By: #### [id number] #### [facility] [address] [place] [address], USAPLAT TET336 10*3/lGXblwoc558-146Tuj [facility] Harding HospitalComment on above:Performed By: #### [id number] #### [facility] [address] [place] [address], USARBC (Bld) [#/Vol]4.30 10*6/uLNormal3.80-5.00The [facility] Harding HospitalComment on above:Performed By: #### [id number] #### [facility] [address] [place] [address], USAWBC (Bld) [#/Vol]15.51 10*3/uLHigh4.00-10.60The [facility] Harding HospitalComment on above:Performed By: #### [id number] #### [facility] [address] [place] [address], USAHEMOGLOBIN A1Con 12-22-4218TaE7p (Bld) [Mass fraction]117 mg/zQZeybcs04-666Aqk [facility] HospitalComment on above:Order Comment: Yes: Add to Previous draw if ablePerformed By: #### 62447, 14436 #### [facility] [address] [place] [address], XQUBjG9d (Bld) [Mass fraction]5.7 %Normal4.0-6.0The [facility] Harding HospitalComment on above:Order Comment: Yes: Add to Previous draw if ablePerformed By: #### 05003, [id number] #### [facility] [address] [place] [address], USALIVER BATTERYon 02-70-6107Wtjeuyu [Mass/Vol]3.7 g/dLNormal 3.5-5.7The [facility] Harding HospitalComment on above:Order Comment: No: Do not add to previous drawPerformed By: #### 21025, 98120, 46286 #### [facility] [address] [place] [address], USAALKALINE WUFCFU71 IU/IHxcapv33-809Hza [facility]ing HospitalComment on above:Order Comment: No: Do not add to previous draw Performed By: #### 15040, 51097, 50022 #### [facility] [address] [place] [address], USAALT [Catalytic activity/Vol]156 U/LHigh7-52The [facility] Harding HospitalComment on above:Order Comment: No: Do not add to previous drawPerformed By: #### 88833, 75735, 47496 #### [facility] [address] [place] [address], USAAST [Catalytic activity/Vol]62 U/UJqit84-43Zni [facility] HospitalComment on above:Order Comment: No: Do not add to previous drawPerformed By: #### 69181, 87544, 38718 #### [facility] [address] [place] [address], USABilirubin [Mass/Vol]0.5 mg/dLNormal0.3-1.0The [facility] Harding HospitalComment on above:Order Comment: No: Do not add to previous drawPerformed By: #### 28904, 64741, 71785 #### [facility] [address] [place] [address], USABilirubin.direct [Mass/Vol]0.1 mg/dLNormal0.0-0.2The [facility] Harding HospitalComment on above:Order Comment: No: Do not add to previous drawPerformed By: #### 34037, 24710, 30942 #### [facility] [address] [place] [address], USAProtein [Mass/Vol]6.8 g/dLNormal6.0-8.3The [facility] Harding HospitalComment on above:Order Comment: No: Do not add to previous drawPerformed By: #### 21567, 27397, 70361 #### [facility] [address] [place] [address], USATROPONIN-Ion 25-37-0797Rpzvjunl I.cardiac [Mass/Vol]1.42 ng/mLCritically high0.00-0.04The [facility] Harding HospitalComment on above:Order Comment: No: Do not add to previous drawResult Comment: M-PREVIOUS CRITICAL RESULT REFERENCE RANGES: 0.00 - 0.04 ng/ml NORMAL 0.05 - 0.50 ng/ml INDETERMINATE > 0.50 ng/ml CONSISTENT WITH AN M.I.Performed By: #### 78225 #### [facility] [address] [place] [address], USATroponin I.cardiac [Mass/Vol]1.12 ng/mLCritically high 0.00-0.04The [facility] Harding HospitalComment on above:Order Comment: No: Do not add to previous drawResult Comment: M-CRITICAL RESULT(S) REVIEWED, CALLED TO AND READ BACK BY MONICA HERNANDEZ RN @ 2000 ON 11-13-18 REFERENCE RANGES: 0.00 - 0.04 ng/ml NORMAL 0.05 - 0.50 ng/ml INDETERMINATE > 0.50 ng/ml CONSISTENT WITH AN M.I.Performed By: #### 53615, 10994, 00224 #### [facility] [address] [place] [address], USAURINALYSIS REFLEXon 28-20-7861Pfjoakvdal (U)CLEARNormal CLEARThe [facility] State Harding HospitalComment on above:Order Comment: No: Do not add to previous draw Criteria for reflexing a culture was not met. Please call the lab at [phone] within 24 hours of collection time if culture is neededPerformed By: #### 07903 #### [facility] [address] [place] [address], USABilirubin [Mass/Vol]NegativeNormalNEGATIVEThe [facility] Harding HospitalComment on above:Order Comment: No: Do not add to previous draw Criteria for reflexing a culture was not met. Please call the lab at 7668 within 24 hours of collection time if culture is neededPerformed By: #### 74152 #### [facility] [address] [place] [address], USABLOODNegativeNormalNEGATIVEThe [facility] Harding HospitalComment on above:Order Comment: No: Do not add to previous draw Criteria for reflexing a culture was not met. Please call the lab at 7668 within 24 hours of collection time if culture is neededPerformed By: #### 48093 #### [facility] [address] [place] [address], USAColor (U)YELLOWAbnormalYELLOWThe [facility] State Harding HospitalComment on above:Order Comment: No: Do not add to previous draw Criteria for reflexing a culture was not met. Please call the lab at 7668 within 24 hours of collection time if culture is neededPerformed By: #### 44890 #### [facility] [address] [place] [address], USAGlucose [Mass/Vol]NegativeNormalNEGATIVEThe [facility] Harding HospitalComment on above:Order Comment: No: Do not add to previous draw Criteria for reflexing a culture was not met. Please call the lab at 7668 within 24 hours of collection time if culture is neededPerformed By: #### 20908 #### [facility] [address] [place] [address], USAKETONENegativeNormalNEGATIVEThe [facility] Harding HospitalComment on above:Order Comment: No: Do not add to previous draw Criteria for reflexing a culture was not met. Please call the lab at 7668 within 24 hours of collection time if culture is neededPerformed By: #### 72466 #### [facility] [address] [place] [id number], USALEUK ESTERNegativeNormalNEGATIVEThe [facility] Harding HospitalComment on above:Order Comment: No: Do not add to previous draw Criteria for reflexing a culture was not met. Please call the lab at 7668 within 24 hours of collection time if culture is neededPerformed By: #### 45952 #### [facility] [address] [facility]. [place] [id number], USAMICRO NOT DONEnegative chemical reactions unless requested in original orderNormalThe [facility] State Harding HospitalComment on above: Order Comment: No: Do not add to previous draw Criteria for reflexing a culture was not met. Please call the lab at 7668 within 24 hours of collection time if culture is neededPerformed By: #### 62470 #### [facility] [address] [facility] [place] [address], UNM CHILDREN'S PSYCHIATRIC CENTERNitrite Ql (U)NegativeNormalNEGATIVEThe [facility] Harding HospitalComment on above:Order Comment: No: Do not add to previous draw Criteria for reflexing a culture was not met. Please call the lab at 7668 within 24 hours of collection time if culture is neededPerformed By: #### 82408 #### [facility] [address] [facility] [place] [address], USApH (Bld)6.1Qojvao4.0-8.0The [facility] Harding HospitalComment on above:Order Comment: No: Do not add to previous draw Criteria for reflexing a culture was not met. Please call the lab at 7668 within 24 hours of collection time if culture is neededPerformed By: #### 65413 #### [facility] [address] [facility] [place] [address], USAProtein (U) [Mass/Vol]NegativeNormalNEGATIVEThe [facility] Harding HospitalComment on above:Order Comment: No: Do not add to previous draw Criteria for reflexing a culture was not met. Please call the lab at 7668 within 24 hours of collection time if culture is neededPerformed By: #### 51061 #### [facility] [address] [place] [address], USASPEC GRAV1.776Tac0.015-1.020The [facility] Harding HospitalComment on above:Order Comment: No: Do not add to previous draw Criteria for reflexing a culture was not met. Please call the lab at 7668 within 24 hours of collection time if culture is neededPerformed By: #### 54504 #### [facility] [address] [place] [address], [facility] Vital Signs Date TimeVital SignValuePerforming BymrehitpOkhdzfiq88-95-8527 12:58-0400Body eibqjyrnuil26.6 [degF]Nickie 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 Phone: [facility]'s HospitalLloohundub41-62-3949 12:58-0400Body hnkrer06.3 kg Nickie 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 Phone: [facility] HospitalWvcgvtrrja73-52-0545 12:58-0400Diastolic blood mm[Hg]Nickie 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 Phone: [facility] HospitalVnaitrvzsp16-65-7980 12:58-0400Heart rate82 /min Nickie 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 Phone: [facility] HospitalOvjnnubrlw95-16-9895 12:58-8715HnA2% (BldA) [Mass fraction]96 %Nickie 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 Phone: [facility]'s HospitalDekcjyquiu82-99-1358 12:58-0400Systolic blood wtgeuvfg447 mm[Hg]Nickie 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 Phone: [facility]'s HospitalGrgatxofij94-80-8955 14:44-0400Body dobrcp392.56 cmBenjamin Ball DO Work Phone: [facility]09-02-2025 14:44-0400 Body mass index (BMI) [Ratio]27.3 kg/v4Mitrgwav Ball DO Work Phone: [facility]09-02-2025 14:44-0400 Body .12 kgBenjamin Ball DO Work Phone: 1(972)833-[address] [place], [place] 1584109-02-2025 14:44-0400 Diastolic blood imonuulm84 mm[Hg]Al Ball DO Work Phone: 1(864)764-[address] [place], [place] 1584109-02-2025 14:44-0400 Heart rate82 /minBenjamin Ball DO Work Phone: 1(486)[facility] [place], [place] 1584109-02-2025 14:44-0400 Respiratory rate12 /minBenjamin Ball DO Work Phone: 1(818)284-[address] [place], [place] 1584109-02-2025 14:44-0400 Systolic blood pahgfqwx452 mm[Hg]Al Ball DO Work Phone: 1(859)[address] [place], [place] 3260607-01-2025 15:03-0400 Body ypntxl954.56 cmBenjamin Ball DO Work Phone: 1(507)[address] [place], [place] 3260607-01-2025 15:03-0400 Body mass index (BMI) [Ratio]27.5 kg/z6Whzcflui Ball DO Work Phone: 1(300)[address] [place], [place] 3260607-01-2025 15:03-0400 Body lsudfj67.68 kgBenjamin Ball DO Work Phone: 1(050)[address] [place], [place] 3260607-01-2025 15:03-0400 Diastolic blood ghugeutk66 mm[Hg]Al Ball DO Work Phone: 1(618)[address] [place], [place] 3260607-01-2025 15:03-0400 Heart rate76 /minBenjamin Ball DO Work Phone: 1(568)626-[address] [place], [place] 1584107-01-2025 15:03-0400 Respiratory rate12 /minBenjamin Ball DO Work Phone: 1(195)[address] [place], [place] 3260607-01-2025 15:03-0400 Systolic blood kvdnybjf735 mm[Hg]Al Ball DO Work Phone: 1(288)[address] [place], [place] 3260605-09-2025 09:43-0400 Body zsyjhw039.56 cmBenjamin Ball DO Work Phone: [facility]05-09-2025 09:43-0400 Body mass index (BMI) [Ratio]27.4 kg/v5Ktemgchu Ball DO Work Phone: [facility]05-09-2025 09:43-0400 Body .57 kgBenjamin Ball DO Work Phone: [facility]05-09-2025 09:43-0400 Diastolic blood eopjwdlz91 mm[Hg]Al Ball DO Work Phone: [facility]05-09-2025 09:43-0400 Heart rate85 /minBenjamin Ball DO Work Phone: [phone]05-09-2025 09:43-0400 Respiratory rate12 /minBenjamin Ball DO Work Phone: [phone]05-09-2025 09:43-0400 Systolic blood fhjiraok186 mm[Hg]Al Ball DO Work Phone: [facility]02-07-2025 11:43-0500 Body bteaqb810.56 cmTr[facility]02-07-2025 11:43-0500Body mass index (BMI) [Ratio]27.3 kg/v9JboqcpgbaTr[facility]02-07-2025 11:43-0500Body wptmqu23.29 kgTr[facility]02-07-2025 11:43-0500Diastolic blood diawmcmc93 mm[Hg][facility] 04-29-2024 11:43-0500Heart rate92 /[facility] 04-29-2024 11:43-0500Respiratory rate12 /[facility] 04-29-2024 11:43-0500Systolic blood grxzdyxm492 mm[Hg][facility]12-23-2024 11:34-0500Body tnfmoh165.56 cmTr[facility]12-23-2024 11:34-0500Body mass index (BMI) [Ratio]27.6 kg/i8ZfpavgzaaTr[facility]12-23-2024 11:34-0500Body exsxvk00.02 [facility]12-23-2024 11:34-0500Diastolic blood mm[Hg] [facility]12-23-2024 11:34-0500Heart rate83 /[facility]12-23-2024 11:34-0500Respiratory rate12 /[facility]12-23-2024 11:34-0500Systolic blood oakauyyq612 mm[Hg] [facility]02-19-2024 13:30-0500Body tfdutx684.56 cm [facility]02-19-2024 13:30-0500Body mass index (BMI) [Ratio]27.6 kg/p6SxeahbrpcTr[facility]02-19-2024 13:30-0500Body zyczwa85.02 [facility]02-19-2024 13:30-0500Diastolic blood gbqvlher54 mm[Hg][facility]02-19-2024 13:30-0500 Heart rate84 /[facility]02-19-2024 13:30-7764JcP2% (BldA) [Mass fraction]97 %[facility]02-19-2024 13:30-0500 Systolic blood ndemhoeq621 mm[Hg][facility]12-08-2023 11:00-0500Body vqypne318.56 cmBenjamin Ball Other [facility]12-08-2023 11:00-0500 Body mass index (BMI) [Ratio]26.43 kg/c6Tzbzprno Ball Other [place] [employer] Other 718242-79-1829 11:00-0500Body tvyphf99.85 kgBenjamin Ball Other [facility]12-08-2023 11:00-0500 Diastolic blood ahaloves50 mm[Hg]Al Ball Other [facility]12-08-2023 11:00-0500 Respiratory rate18 /minBenjamin Ball Other [facility] [employer] Other 759250-89-8365 11:00-0500Systolic blood pisrylte213 mm[Hg] Al Soto Other [facility] Encounters Encounter DateEncounter TypeCare ProviderFacilityStart: 12-26-2024 End: 55-16-7566Ugtzunuxe encounterLinrosa 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 Phone: no [facility] CareStart: 12-26-2024 End: 66-62-7551clfocqdumdZMOKODQ R LACONISNot AvailableStart: 12-26-2024 End: 40-71-7319Klgqdb outpatient new 45 minutesNickie 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 Phone: noms Tomy Urgent CareComment on above:Acute bronchitis, unspecified organism (Primary Dx); Acute coughStart: 11-22-2024 End: 75-00-9489nydlngfdplNvhudxvw Charles DO Work Phone: [facility] Work Phone: Start: 11-22-2024 End: 94-59-6640Pkdmkno encounter procedureAl Soto DO-[facility] Work Phone: Start: 75-96-2054Ebp-patient / Non-visitAl Soto DO-[facility] Work Phone: Start: 39-78-8053Ywp-patient / Myf-zpairLdlb-Bxbt Chang MD-[facility] Work Phone: Start: 09-22-2024 End: 86-19-6865prkijjczglWJUPVO J CROAKMercy Daniel Freeman Memorial Hospitaltart: 09-22-2024 End: 68-28-6093Kzvylxrqwh hospital visit by physicianAl Soto DO Work Phone: stvZ [place] LAB DOCTORComment on above:Vaginal itching Start: 09-20-2024 End: 75-84-6050uokarjsemgNhpqyvfu Ball DO Work Phone: [facility] Work Phone: Start: 09-20-2024 End: 94-36-6289Mciwpmb encounter procedureBencandy Soto DO-[facility] Work Phone: Start: 07-29-2024 End: 51-88-7812Zyyrvwa encounter procedureBencandy Soto DO-[facility] Work Phone: Start: 04-29-2024 End: 45-57-9151zzrnrvjgiqXmbvkvndoGood Samaritan Hospital Work Phone: Start: 04-29-2024 End: 01-64-4356Bnnlqrs encounter procedureFirelands Physician Group-[facility] Work Phone: Start: 04-15-7254Ipz-patient / Non-visitFirbella vistas Physician Group-[facility] Work Phone: Start: 83-61-2770Oik-patient / Non-visitFirelands Physician Group-[facility] Work Phone: Start: 03-14-2024 End: 68-79-7244Gxqjlof encounter procedureFirbella vistas [facility]ician [facility] Work Phone: Start: 86-03-5200Midmxaz encounter procedureMount Carmel Health Systemtart: 22-43-3640Hbc-patient / Non-visitFirelands Physician Group-[facility] Work Phone: Start: 49-35-2533Vza-patient / Non-visitFirelands Physician Group-[facility] Work Phone: start: 05-11-2023 End: 47-04-2784taqzbcrppgToesyxzwuGood Samaritan Hospital Work Phone: Start: 05-11-2023 End: 39-19-1065Ihrsbid encounter procedureFirbella vistas [facility]ician [facility] Work Phone: Start: 02-27-2023 End: 29-07-6799dcqvgyulnuKppzghic Ball Other [employer] Other Start: 07-55-8430Bhdfuva encounter procedureAl Soto Medical ClinicStart: 02-27-2023 End: 20-18-9069Qpemioz encounter procedureFirelands Physician Group-[facility] Work Phone: Start: 02-19-2023 End: 07-55-7153ddepazbstjFcoedacc Ball Other [employer] Other Start: 41-41-8043Tkgeylxwx encounterAl Soto Medical ClinicStart: 12-29-2022 End: 78-70-9922ozfhzrnqtbPocwozhh Ball Other [employer] Other Start: 85-73-5403Icgwhht evaluation of patient and reportBereji Soto Medical ClinicStart: 06-05-2022 End: 88-55-4950wkqrmechzjDL NONE LISTED REQUESTFacility:D9Nbrqt: 05-16-2022 End: 79-79-2682vhbfmwcuqkLV AL BALLFacility:A8Jcstz: 17-61-0692Haxvg health examinationAl Soto Other [employer] Other Start: 02-24-2022 End: 17-73-7468uqbvshdsjiQB AL BALLFacility:O0Uutbm: 08-21-2021 End: 65-69-6913xytpwhwfcuAF AL BALLFacility:H1 Procedures DateProcedureProcedure DetailPerforming ClinicianStart: 95-10-5615Vwebqlbrxa exam chest 2 Najma 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 Phone: Start: 10-11-2020H/O: hysterectomyRALH, BSO, A/P repair, Lynx sling, Cysto 10/11/20Al Soto DO Work Phone: Start: 38-18-3516Gtnecpinv mammographyBereji Soto Other Start: 49-81-5079Pwllkpe examination of patient Al Soto Other Start: 69-07-0697Ofdppdfpl for malignant neoplasm of colonAl Soto Other Start: 16-62-0920Ephmqtxzi for osteoporosisAl Soto Other Depression screeningAl Soto Other Screening for malignant neoplasm of breastAl Soto Other Plan of Treatment DateCare ActivityDetailAuthorStart: 90-75-1484NZiS/Tdap/Td vaccine (2 - Tdap) DTaP/Tdap/Td vaccine (2 - Tdap)[facility]: 2026 Respiratory Syncytial Virus (RSV) or age 60 yrs+ (1 - 1-dose 75+ series)Respiratory Syncytial Virus (RSV) or age 60 yrs+ (1 - 1-dose 75+ series)[facility] CenterStart: 61-94-4007Douryollp vaccinationInfluenza Vaccine (#1)[facility] HealthcareStart: 51-95-2654Hejhooxla vaccinationFlu vaccine (#1)[facility]: 92-27-1333Ftlsuk Wellness Visit (Medicare) Annual Wellness Visit (Medicare)[facility]: 52-06-5203XFMSF- 19 Vaccine ( season)COVID-19 Vaccine ( season)Bon [facility]: 93-46-3010Oklqvdowh for osteoporosisDEXA (modify frequency per FRAX score)Bon [facility]: 73-40-4158Xqzcwdznu for malignant neoplasm of colonBon [facility]: 50-50-9786Rgoaipgtj for malignant neoplasm of breastBon [facility] Centerart: 14-94-7487Ogejwudqd C screeningHepatitis C screenBon [facility]: 86-75-8355Cnnimmprdk ScreenDepression ScreenBon St. [facility]S Medical CenterStart: 23-68-5605Uzpfn panel LipidsPoplar Springs Hospital: 51-14-4664Ylfhkcivm for malignant neoplasm of colonNORI Healthcare Breast - bilateral ScreeningTr[facility] End: 15-76-9140Nmvtarark DNA ProbeSentara Williamsburg Regional Medical CenterComment on above:1 Occurrences starting 09/22/2024 until 09/22/2024[facility] Immunizations Immunization DateImmunizationNotesCare CadqnxuiPjysxtty11-43-1886mpochksyt virus vaccine, unspecified formulationNickie 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 Phone: [facility]'s HospitalCitmzkilhe23-37-6567iybupmszn virus vaccine, unspecified formulationTr[facility] Health [facility] Center10-09-2023influenza, high dose seasonal, preservative-freeBenjamin Ball Other [employer] Other 10143748-38-4719pxvqhzjrj virus vaccine, split virus (incl. purified surface antigen)Al Soto Other [employer] Other 10-507055-60-3383tqxgmgpje virus vaccine, unspecified formulationTr[facility] Health [facility] Center03-08-2021COVID-19, [facility], Primary or Immunocompromised, (age 12y+), IM, 100 mcg/0.5mLBenjamin Ball DO Work Phone: bon [facility]S Medical CenterBgaexi80-88-4459FSSNS-70, [facility] border, Primary or Immunocompromised, (age 12y+), IM, 100 mcg/0.5mLBenjamin Ball DO Work Phone: bon [facility]S Medical CenterEghcom30-61-3465eewacjvjtzdd polysaccharide vaccine, 23 valentBenjamin Ball Other [facility]10-17-2018influenza virus vaccine, split virus (incl. purified surface antigen)Al Soto Other [employer] Other 10860802-93-6020bxxnbhogk virus vaccine, unspecified formulationTr[facility]04-09-2018diphtheria, tetanus toxoids and acellular pertussis vaccine, unspecified formulationBedignacandy Soto Other [facility]04-09-2018 pneumococcal conjugate vaccine, 13 valentBencandy Ball Other [facility] Payers DatePayer CategoryPayerPolicy [id number] (Managed Care)[employer] [id number] [id number] 2..1.640111.3.579.2. [id number] 2..1.553917.3.57[id number] 2..1.742851.3.57[id number] 2..1.884087.3.57[id number] 2.0.1.246525.3.57[id number] 2..840.1.900600.3.579.2.1259Self-paySelf Pay [id number] 2..840.1.255102.3.579.2.593 Social History DateTypeDetailFacilityUnknown if ever smokedNash[place] [employer] Other Start: 24-33-3649Pwl Assigned At [facility] [employer] Other Start: 05-11-2023 End: 30-52-4691Cienmsx smoking status NHISNever smoked tobacco (finding) [facility] Systemtart: 95-70-5081Qnn Assigned At [facility]FeCincinnati [facility]rin[facility] Hospitaltart: 05-04-2012 End: 56-26-1710RjyAfoaqt (finding)[facility] Systemtart: 64-12-4394Ffmnqri use and exposureSmokeless tobacco non-userBon [facility] HospitalRED IN[facility] HospitalMerrim[employer] [facility] DublinStart: 54-64-1539Iqvgjpueq beverage intakeCurrent drinker of alcohol (finding)[facility] HospitalRED IN[facility] HospitalMerrimack [employer] [facility] [facility] DublinStart: [id number] of Social functionBon Aurora East HospitalRED INNOVA [facility] HospitalMerrimack Pharmaceuticals [facility] DublinStart: 06-46-6750Iqulycl CommentsocialSentara Halifax Regional HospitalRED INNOVA [facility] HospitalMerrimack Pharmaceuticals [facility] DublinStart: 16-37-3153Yvf assigned at birthNot on fileSentara Halifax Regional HospitalPiiku Tobacco smoking status NHISTobacco smoking consumption unknownNOMS Healthcare Medical Equipment Procedure CodeEquipment CodeEquipment Original TextEquipment IdentifierDates Sling Black Off Worker Polypr Suprpub Midurethral Halo Ndl Guid Tb [id number]: [id number] on above:Description: [id number] Clinical Notes 02-19-2023 to 12-26-2024 Note Date & [id number] Telephone encounter Note* Telephone Encounter - Nickie Feliciano NP - 12/26/2024 2:26 PM EDT Final chest xray neg for acute findings. Immediate eval if new, worsening sx otherwise follow up with PCP if sx not resolved with course of atb, sooner if not improving over next 3-4 days. [facility] Children's [id number] Miscellaneous Notes* Telephone Encounter - Nickie Feliciano NP - 12/26/2024 2:26 PM EDT Final chest xray neg for acute findings. Immediate eval if new, worsening sx otherwise follow up with PCP if sx not resolved with course of atb, sooner if not improving over next 3-4 days. documented in this encounterSSM Health Cardinal Glennon Children's [id number] History of Present illness Narrative* Nickie Feliciano NP - 12/26/2024 12:55 PM EDT Images from the original note were not included. [address] , [address] [facility], [address] P: [phone] F: [phone] HPI Historian of HPI: patient Epi Dailey is a 74 y.o. female who presents today to the Urgent Care with the following complaints and denials which have been present for 1 week(s) C/O Denies Symptom Comments [] [x] Runny Nose [] [x] Difficulty Swallowing [] [x] Sore Throat [x] [] Cough Nonproductive [] [x] Ear Pain [] [x] Fever [x] [] Chills [] [x] Nasal Congestion [] [x] Myalgia [] [x] Sinus Pain [] [x] Sinus Pressure Additional Comments: pt has not taken any OTC medications Denies chest pain or SOB. Denies leg swelling. States she had a slight runny nose today. States sheis feeling worse, not better. ROS A complete system ROS was performed and negative aside from the pertinent positives noted in the HPI and PE. PHYSICAL EXAM Examination General Examination: General Examination: in no acute distress, well developed, well nourished Head: normocephalic, atraumatic Eyes: no discharge Ears: BOTH EARS canals with moderate cerumen TM intact and clear Nose: nares patent, sinuses nontender bilaterally Oral Cavity: mucosa moist Throat: pharynx with erythema and PND. No trismus, muffled voice, drooling or protrusion of soft palate. Uvula midline Neck/Thyroid: neck supple, trachea midline Lymph Nodes: no cervical adenopathy Skin: warm and dry Heart: S1, S2 normal, regular rate and rhythm, no S3, S4, no murmurs, rubs, gallops Lungs: clear anteriorly and posteriorly, clear to auscultation bilaterally, good air movement, no wheezes, rales, rhonchi occasional dry hacking cough. Chest: normal shape and expansion, normal anteroposterior (AP) diameter no nasal flaring, retractions or stridor Ext no edema, no calf tenderness BLE Psych: alert, oriented. TREATMENT PLAN 1. Acute bronchitis, unspecified organism (Primary) Pt to obtain STAT Chest xray today and will contact pt with results. Sx have been x 1 week and worsening per pt. Start doxy-see rx. Start proair-see rx. Discussed PO steroid use and pt wishes to avoid use at this time. Immediate eval if new, worsening or warning s/s otherwise if pos findings on chest xray today, pt must follow up with PCP over next 3-5 days. Discussed if chest xray WNL, recommendfollow up with PCP if sx not resolved with course of atb, sooner if not improving over next 3-4 days. 2. Acute cough See 1 - XR chest 2 views - doxycycline (Adoxa) 100 MG tablet; Take 1 tablet (100 mg) by mouth every 12 (twelve) hours for 10days Take with a full glass of water and do not lie down for at least 30 minutes after, avoid sun exposure Dispense: 20 tablet; Refill: 0 - albuterol HFA (ProAir HFA) 90 mcg/act inhaler; Inhale 2 puffs every 4 (four) hours if needed (cough) Dispense: 8.5 g; Refill: 0 documented in this encounterSSM Health Cardinal Glennon Children's [id number] Evaluation note* Diagnosis Onset Date Resolution Status Admit Date Cervical spondylosis with radiculopathy acuteJuly 2024 2:52pmHx of fusion of cervical spineacuteJuly 2024 2:52pmCervical spondylosis with radiculopathyacuteSept2024 2:25pmHx of fusion of cervical spineacuteSept2024 2:25pmHypercalcemiaacute Mere 2024 2:25pm [facility] Work Phone: 1(260) 446-964805-09-2025 Evaluation note* Diagnosis Onset Date Resolution Status Admit Date Cervical spondylosis acuteMay 2024 9:32amRadicular pain in right armacuteMay 2024 9:32am Neck painnoneactiveMay 2024 9:32am [facility] Work Phone: 1(985) 291-601412-23-2024 Evaluation note* Diagnosis Onset Date Resolution Status Admit Date Essential (primary) hypertension acuteDecember 2023 11:25amHypercholesterolemiaacuteDecember 2023 11:25amHypothyroidacuteDecember 2023 11:25amMedicare annual wellness visit, subsequentacuteDeceer 2023 11:25amOverweightacuteDecember 2023 11:25amScreening mammogram for breast canceracuteMarch 14, 2024 11:25amColitisacuteFebruary 2024 11:25amHematocheziaacuteFebruary 2024 11:25am [facility] Work Phone: 1([phone]) 768-385012-08-2023 Evaluation note* Encounter Date Diagnosis Assessment Notes [...] reviewed and amended by provider signed below. Feb,rimary hypertension (ICD-10 - I10)This patient is instructed to consume a healthy, low-fat, low-salt diet. They are also encouraged to continue exercise to achieve/maintain a normal BMI. Feb,Hypercholesteremia (ICD-10 - E78.00)Instructed on diet and exercise with continued statin therapy.Discussed the beneficial effects of lowering cholesterol in reducing the risk for cerebrovascular and cardiovascular disease. Feb,Other specified hypothyroidism (ICD-10 - E03.8) Feb,utoimmune thyroiditis (ICD-10 - E06.3)Clinically euthyroid TSH minally elevated, recommend rechecking in 3mo (GEOVANNI) Feb,Screening mammogram for breast cancer (ICD-10 - Z12.31)Instructed patient on monthly SBE and yearly mammograms. Feb,Menopause (ICD-10 - Z78.0)Continue estrogen crm. Healthy diet and exercise. WHIT dawson [employer] Other 11-30-2023 Evaluation note* Encounter Date Diagnosis Assessment Notes Treatment Notes Treatment Clinical Notes Jan, Primary hypertension (ICD-10 - I 10) Jan,Hypercholesteremia (ICD-10 - E78.00) Jan,Other specified hypothyroidism (ICD-10 - E03.8) Jan,utoimmune thyroiditis (ICD-10 - E06.3) Jan,Vitamin D deficiency (ICD-10 - E55.9) Jan,High risk medication use (ICD-10 - Z79.899) [employer] Other Evaluation noteNo InformationNort [employer] Other Evaluation note* Diagnosis Onset Date Resolution Status Bacterial conjunctivitis of right eye acute [facility] Work Phone: Evaluation note* Diagnosis Vaginal itching Pruritus of genital organs documented in this encounter [facility] CenterEvaluation [facility]* Diagnosis Acute bronchitis, unspecified organism- Primary Acute cough documented in this encounter NOMS HealthcareHistory general Narrative - Reported* Type Description Date Medical History hypertension Medical HistoryhypercholesterolemiaSurgical HistoryProblem Title : ANTERIOR CERVICAL DISCECTOMY AND FUSION (ACDF) (95900), Problem Status : Active,Surgical HistoryProblem Title : past surgical history reviewed, Problem Description : past surgical history reviewed, Problem Comment : reviewed - no changes required, Problem Status : Inactive,Surgical HistoryProblem Title : Spinal Fusion - Neck, Problem Status : Active, [employer] Other History general Narrative - Reported* Type Description Date Medical History hypertension Medical HistoryhypercholesterolemiaSurgical Historyneck surgeryHospitalization Historysee surgical history [employer] Other Reason for referral (narrative)No reason for referral information availableSelect Medical [facility] Work Phone: Summary Purpose Family History No Family History Records Found Relationship Condition Age at Onset Recorded Date/T addy father Unknown Not SpecifiedDeceasedUnknownHypertensionUnknown Relationship Condition Age at Onset Recorded Date/T addy father Unknown motherDeceasedUnknownHypertensionUnknown Advance Directives No Advanced Directives Records Found Advance Directive Response Recorded Date/ Time Advance Directives No September 27 9 10:11am Advance Directive Response Recorded Date/ Time Advance Directives No September 27 9 11:11am Date ActivatedDate InactivatedComments10/11/2020 12:36 PM10/12/2020 3:44 PM Hospital Course Note MR#: [id number] [facility] Pt. Name: Epi Dailey Admitted: 11/13/2018 Discharged: 11/16/2018 Date of : 1950 Physician: Ryan Rehman MD DISCHARGE SUMMARY DIAGNOSES AT ADMISSION: 1. Ful-MT-ahkjhfjfp myocardial infarction. 2. Acute congestive heart failure exacerbation. 3. Oropharyngeal candidiasis. DIAGNOSES AT DISCHARGE: 1. Kso-UO-qytpmltxi myocardial infarction. 2. Acute diastolic congestive heart failure exacerbation, resolved. 3. Oropharyngeal candidiasis, resolved. 4. Questionable pneumonia treated. 5. Hypertension controlled. 6. Hyperlipidemia. 7. Abnormal LFTs, resolved. HOSPITAL COURSE: This is a 68-year-old female, who was recently treated with Bactrim for her urinary tract infection and was also started on antibiotics and steroids for possible pneumonia, was transferred from the [place] for worsening shortness of breath along with left lower extremity weakness. The patient was started on Zosyn and ciprofloxacin for the last so (more content not included)... Chief Complaint and Reason for Visit Chief Complaint Wellness RashReason for VisitBacterial conjunctivitis of right eye Chief Complaint Admit Date [...] 11:25am [facility] 11:25am Colitis April 29, 2024 1 [...] section and content) DATE CREATED AUTHOR 12/31/2018 [facility] DATE CREATED AUTHOR AUTHOR'S ORGANIZ ATION 03/30/2020 [facility] DATE CREATED AUTHOR AUTHOR'S ORGANIZ ATION 06/06/2022 [facility] DATE CREATED AUTHOR AUTHOR'S ORGANIZ ATION 09/25/2024 [facility] DATE CREATED AUTHOR AUTHOR'S ORGANIZ ATION 01/01/2025 [facility] EPIC REASON FOR VISIT (unrecogniz ed section and content) FLU SHOTWellness Lab OrdersW [facility] Care Teams (unrecognized sec tion and content) Team Status: Active Member Role Status Dates Al Soto DO Primary Care Provider Active Team Status: Inactive Member Role Status Dates Al Soto DO Primary Care Provider Active Start: July 29, 2024 End: July 29jose m Soto DOAttbarry ProviderActiveStart: July 29, 2024 End: July 29, 2024 Team Status: Inactive Member Role Status Rolando Soto DO Primary Care Provider Active Start: September 20, 2024 End: September 20jose m Soto DOAttending ProviderActiveStart: September 20, 2024 End: September 20, 2024 Team Status: Active Member Role Status Rolando Soto DO Primary Care Provide r, Attending Provider Active Start: March 08, 2024 Team Status: Active Member Role Status Rolando Soto DO Primary Care Provide r, Attending Provider Active Start: March 11, 2024 Team Status: Inactive Member Role Status Rolando Soto DO Primary Care Provide r, Attending Provider Active Start: March 14, 2024 End: March 14, 2024 Team Status: Active Member Role Status Rolando Soto DO Primary Care Provider Active Start: April 18, 2024 Fernie Chaidez DOAttending ProviderActiveStart: April 18, 2024 Team Status: Active Member Role Status Rolando Soto DO Primary Care Provider Active Start: April 19, 2024 Epi Hamilton CMAAttending ProviderActiveStart: April 19, 2024 Team Status: Inactive Member Role Status Rolando Soto DO Primary Care Provide r, Attending Provider Active Start: April 29, 2024 End: April 29, 2024 Team Status: Inactive Member Role Status Rolando Soto DO Attending Provider Active Sta rt: February 27, 2023 End: February 27, 2023 Team Status: Inactive Member Role Status Rolando Soto DO Primary Care Provider Active Start: May 11, 2023 End: May 11, 2023Maria Guadalupe Youssef APRN AERONAUTICAL INSPECTOR-CAttending ProviderActive Start: May 11, 2023 End: May 11, 2023Team MemberRelationshipSpecialtyStart DateEnd Date Al Soto DO [address] [place] [address] PCP - GeneralInternal Pnqjwzgl22/4/24 Team Status: Active Member Role Status Dates Al Soto DO Primary Care Provider Active Start: October 28, 2024 SpenserArnoldo [place] MDAttbarry ProviderActiveStart: October 28, 2024 Team Status: Active Member Role Status Dates Al Soto DO Primary Care Provider Active Start: October 31, 2024 Al Charles DOAttending ProviderActiveStart: October 31, 2024 Team Status: Inactive Member Role Status Dates Al Soto DO Primary Care Provider Active Start: November 22, 2024 End: November 22encandy Charles Attending ProviderActiveStart: November 22, 2024 End: November 22, 2024Team MemberRelationshipSpecialtyStart DateEnd Date Al Soto DO [address] [place] [id number] PCP - GeneralInternal Cmgpqtqg32/6/25Team MemberRelationshipSpecialtyStart Date End Date CharlesAl [address] [place] [id number] PCP - GeneralInternal Idnzmcmz63/6/25 Goals (unrecognized section and content) Goals may [...] BE BASED ON THE PRIMARY CLINICAL RECORDS. [facility]. provides no warranty or guarantee of the accuracy or completeness of information in this document.
[2025-02-24 11:19] LABS: Alanine Aminotransferase 70 U/L (14-59); Albumin Globulin Ratio 0.9; Albumin Level 3.8 g/dL (3.4-5.0); Alkaline Phosphatase 70 U/L (46-116); Anion Gap 13.0; Aspartate Amino Transferase 46 U/L (15-37); Blood Urea Nitrogen 16.0 mg/dL (7.0-18.0); Calcium 9.5 mg/dL (8.5-10.1); Carbon Dioxide 28.2 mmol/L (21.0-32.0); Chloride 106 mmol/L (98-107); Estimated GFR (African America >60 (>=60 mL/min/1.73m^2); Estimated GFR (Non-African Ame >60 (>=60 mL/min/1.73m^2); Globulin 4.1 g/dL; Glucose 104 mg/dL (74-106); Magnesium 2.0 mg/dL (1.8-2.4); Potassium 4.2 mmol/L (3.5-5.1); Sodium 143 mmol/L (136-145); Total Protein 7.9 g/dL (6.4-8.2)
== END 2025-02-24 08:40 | disposition home or self-care (01) ==
PROVIDERS: PCP Internal Medicine; Visit Provider Internal Medicine
DX: E83.39 Other disorders of phosphorus metabolism (principal); E83.52 Hypercalcemia; K52.9 Noninfective gastroenteritis and colitis, unspecified; E78.00 Pure hypercholesterolemia, unspecified; I10 Essential (primary) hypertension
CPT/HCPCS: 36415; 80053; 82306; 83735; 83970; 84100

== ENCOUNTER 2025-03-01 09:22 | Outpatient (OUT) | payer MEDICARE, SELFPAY ==
--- NOTE | 2025-03-01 09:25 | US_ITS ---
The [address] [address] Patient Name: EPI GEORGE MRN: [id number] date: 1950 Sex: F Assigned Patient Location: [place] Current Patient Location: [place] Accession/Order Number: [id number] Exam Date: 03/01/2025 09:30 Report Date: 03/01/2025 11:09 At the request of: EDGAR LEVINE DO Procedure: US right upper quadrant LIMITED RIGHT UPPER QUADRANT ABDOMINAL ULTRASOUND CLINICAL HISTORY: Transaminasemia COMPARISON: CT 04/18/2024 The gallbladder is physiologically distended without shadowing calculi, wall thickening or pericholecystic fluid. No intra- or extrahepatic biliary dilatation is evident. The common duct measures 3 - 4 mm. There is increased echogenicity of the hepatic parenchyma suggesting fatty infiltration. No focal intrahepatic masses are seen. There is appropriate hepatopetal flow within the main portal vein. The pancreas shows no significant sonographic abnormality. Evaluation of the right kidney reveals no hydronephrosis or fluid within Monson's pouch. US/US right upper quadrant IMPRESSION: FATTY LIVER. NO GALLBLADDER PATHOLOGY Impression dictated by: Swathi Lewis M.D. 03/01/2025 11:09 AM Dictation Location: [place] [address] Electronically authenticated by: [id number] Y Date: 03/01/2025 11:09
--- OUTSIDE RECORDS SUMMARY | 2025-03-01 09:27 | XMS_ITS | CCD ---
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 Gluing Operator Name Role Phone DR AL SOTO Admitting [...] Unavailable Al Soto DO Primary Care Provider [phone] Al Soto DO Attending Provider Al Soto DO Primary Care Provider [phone] STEVIE DELGADO Referring Unavailable AL SOTO Primary Care Unavailable Al Soto DO Primary Care Provider [phone] Al Soto DO Attending Provider Marcela Haynes MD Attending Provider Unavailab Al Fisher DO Primary Care Provider NICKIE FELICIANO Attending Unavailable NICKIE FELICIANO Referring Unavailable Allergies Allergy ClassificationReported Allergen(s)Allergy TypeDate of OnsetReaction(s) Facility (1 source)Sulfamethoxazole / TrimethoprimDrug AllergyThe [facility] Rep[facility] (2 sources)patient allergy list reviewed by nurse or physiciaPropensity to adverse qxhkvozog02-94-4557Wwpibeg:Pins Other (2 sources)Allergies ReconciledPropensity to adverse reactionsReid Hospital And Health Care ServicesFieldView Solutions Other (7 sources)Substance with sulfonamide structure and antibacterial mechanism of action (substance)Drug pawsdlg70-29-3783Lcmin, Other (See Comments)[facility] Tattva (4 sources)Sulfamethoxazole / TrimethoprimDrug Syrwxmn03-34-5506Tnw [facility] Medications Current Medications MedicationDrug Class(es)DatesSig (Normalized)Sig (Original)[id number] 200 actuat albuterol 0.09 mg/actuat metered dose inhaler (3 sources)beta2-Adrenergic AgonistStart: 62-33-8954vvsm 2 puff(s) by inhalation every four hoursalbuterol HFA (ProAir HFA) 90 mcg/act inhaler Indications: Acute cough Inhale 2 puffs every 4 (four) hours if needed (cough) 8.5 g 12/26/2024 ActiveamLODIPine 2.5 mg oral tablet (14 sources)Dihydropyridine Calcium Channel BlockerStart: 23-66-1059fjuu 1 tablet by mouth twice dailyAmlodipine 2.5 mg tablet Active 0 .ROUTE .COMPLEX 180 February 29, 2024 5:57pm Take 1 tablet by mouth twice daily for 90 days Complies with drug therapyStart: 05-11-2023 End: 33-42-9129cazp 1 tablet by mouth twice dailyAmlodipine 2.5 mg tablet Discontinued 2.5 MG PO Twice daily May 11, 2023 1:00am February 29, 2024 5:57pmtake 1 tablet by mouth once dailyamLODIPine Besylate 2.5 MG Take 1 tablet by mouth once daily for 90 Activeatorvastatin (3 sources)HMG-CoA Reductase InhibitorAtorvastatin Calcium Activebaclofen 10 mg oral tablet (5 sources)gamma-Aminobutyric Acid-ergic AgonistStart: 61-03-4349qozcwrud (Lioresal) 10 MG tablet 07/29/2024 Activedoxycycline monohydrate 100 mg oral tablet (3 sources)Tetracycline-class DrugStart: 12-26-2024 End: 09-36-8320yvye 1 tablet by mouth oncedoxycycline (Adoxa) 100 MG tablet Indications: Acute cough Take 1 tablet (100 mg) by mouth every 12(twelve) hours for 10 days Take with a full glass of water and do not lie down for at least 30 minutes after, avoid sun exposure 20 tablet 12/26/2024 01/05/2025 Active estradiol 0.1 mg/ml vaginal cream (6 sources)EstrogenStart: 15-21-9231cothgpslo (ESTRACE VAGINAL) 0.1 MG/GM vaginal cream Indications: Postmenopausal atrophic vaginitis Place 1 g vaginally Twice a Week 42.5 g 3 01/25/2024 ActiveStart: 42-37-6473Bsrgotpfr 0.01 % (0.1 mg/gram) cream Active 1 APPLICATOR VAGINAL As Directed May 11, 2023 1:0 0am Complies with drug therapyEstradiol 0.1 MG/GM as directed Vaginal Active levothyroxine sodium 0.075 mg oral tablet (14 sources)l-ThyroxineStart: 54-82-2552tjxw 1 tablet by mouth once daily levothyroxine (Synthroid, Levoxyl) 75 MCG tablet TAKE 1 TABLET BY MOUTH ONCE DAILY ON AN EMPTY STOMACH 11/29/2024 ActiveStart: 05-57-4622hbhd 1 tablet by mouth once dailyLevothyroxine 75 mcg tablet Active 0 .ROUTE .COMPLEX March 03, 2024 11:30am TAKE 1 TABLET BY MOUTH ONCE DAILY ON AN EMPTY STOMACH FOR 90 DAYS Complies with drug therapyStart: 80-14-6540vcbk 1 tablet by mouth once dailyLevothyroxine 75 mcg tablet Active 0 .ROUTE .COMPLEX March 03, 2024 10:30am TAKE 1 TABLET BY MOUTH ONCE DAILY ON AN EMPTY STOMACH FOR 90 DAYSStart: 05-11-2023 End: 22-66-1316twxn 1 tablet by mouth once dailyLevothyroxine (Euthyrox) 75 mcg tablet Discontinued 75 MCG PO Daily May 11, 2023 1:00am March 03, 2024 11:30amStart: 59-70-5981ywbt 1 tablet by mouth every twenty-four hours Euthyrox 75 MCG 1 tablet on an empty stomach oral daily for 90 days *Pick strength-form from [facility] for eRX* Feb, ActiveStart: 79-20-4541xbxf 1 tablet by mouth once dailyEuthyrox 75mcg Euthyrox 75mcg, 1 Tablet daily # 90, 02/26/2022, Ref. x3. Active oral daily for 90 *Pick strength-form from [facility] for eRX* 07 Feb, 2022 Activetake 1 tablet by mouth once dailylevothyroxine (SYNTHROID) 50 MCG tablet Take 1 tablet by mouth Daily Activelisinopril 20 mg oral tablet (9 sources)Angiotensin Converting Enzyme InhibitorStart: 55-62-9243lfdn 1 tablet by mouth in the morninglisinopril 20 MG tablet Take 20 mg by mouth in the morning and 20 mg before bedtime. 12/02/2024 ActiveStart: 03-14-2024 End: 68-78-6477pbsx 1 tablet by mouth twice dailyLisinopril 20 mg tablet Active 20 MG PO Twice daily 180 March 14, 2024 1:00am Complies withdrug therapy lovastatin 20 mg oral tablet (11 sources)HMG-CoA Reductase InhibitorStart: 11-29-1929gdnk 1 tablet by mouth once dailyLovastatin 20 mg tablet Active 0 .ROUTE .COMPLEX February 22, 2024 9:38am Take 1 tablet by mouth once daily for 90 days Complies with drug therapy Start: 02-26-2022 End: 06-50-2679wggq 1 tablet by mouth once dailyLovastatin 20 mg tablet Discontinued 20 MG PO Daily May 11, 2023 1:00am February 22, 2024 9:39am nystatin 249102 unt/ml / triamcinolone acetonide 1 mg/ml topical cream (1 source)Polyene Antifungal, CorticosteroidStart: 62-06-0056sivpmohr- triamcinolone (MYCOLOG II) 313403-6.1 UNIT/GM-% cream Apply topically 2 times daily. 1 each 09/22/2024 Activepolymyxin b 38223 unt/ml / trimethoprim 1 mg/ml ophthalmic solution (4 sources)Dihydrofolate Reductase Inhibitor Antibacterial, Polymyxin-class AntibacterialStart: 18-83-1773qlez 1 drop(s) into the eye(s) four times daily Polymyxin B Sulf-Trimethoprim 10,000 unit- 1 mg/mL drops Active 1 DROPS OPHTHALMIC Four times daily10 May 11, 2023 1:00am Complies with drug therapyStart: 62-57-0983oazf 1 drop(s) into the eye(s) four times dailyPolymyxin B Sulf-Trimethoprim Active 1 DROPS OPHTHALMIC Four times daily 10 May 11, 2023 12:00amubidecarenone 100 mg / vitamin e 5 unt oral capsule (1 source)take 1 capsule by mouth once dailyCoenzyme Q10 (COQ10) 100 MG CAPS Take by mouth daily Active Completed/Discontinued Medications MedicationDrug Class(es)DatesSig (Normalized)Sig (Original)cephalexin 500 mg oral capsule (3 sources)Cephalosporin AntibacterialStart: 28-63-5031ahza 1 capsule by mouth every eight hoursCephalexin 500 MG 1 capsule Orally three times a day for 5 days Sep, Not-Taking/PRNfluconazole 150 mg oral tablet (2 sources)Azole AntifungalStart: 05-10-2024 End: 48-52-1730nudc 1 tablet by mouth once dailyFluconazole 150 mg tablet Discontinued 150 MG PO Daily 1 May 10, 2024 1:00am September 02, 2024 7:37amlosartan potassium 100 mg oral tablet (9 sources)Angiotensin 2 Receptor BlockerStart: 05-11-2023 End: 95-71-1947gwfy 1 tablet by mouth once dailyLosartan 100 mg tablet Discontinued 100 MG PO Daily May 11, 2023 1:00am March 14, 2024 1 2:43pmStart: 72-08-7886iyno 1 tablet by mouth every twenty-four hoursLosartan Potassium 100 MG 1 tablet Orally Once a day for 90 days Feb, Activetake 1 tablet by mouth once dailylosartan (COZAAR) 25 MG tablet Take 1 tablet by mouth daily ActiveLosartan Potassium-HCTZ (3 sources)Losartan Potassium-HCTZ Not-Taking/PRNLosartan Potassium-HCTZ Active phenazopyridine hydrochloride 200 mg oral tablet (3 sources)Start: 88-47-5871lsvp 1 tablet by mouth every eight hoursPyridium 200 MG 1 tablet after meals Orally Three times a day for 2 day(s) Sep, Not-Taking/PRNpredniSONE 20 mg oral tablet (2 sources)Start: 07-29-2024 End: 50-71-9288Ejxyappyrg 20 mg tablet Discontinued 20 MG PO As Directed 04 01July 29, 2024 12:00am September 02, 2024 7:37am 1 tab bid w/ food x 5 days, then qd w/ food x 5 days Problems Active Problems Problem ClassificationProblemDateDocumented DateEpisodic/ChronicAcute bronchitis (2 sources)Acute bronchitis; Translations: [Acute bronchitis, unspecified] 99-23-9311NrajhorhWbwicxgl of white blood cells (7 sources)Lymphocytosis (symptomatic); Translations: [Lymphocytosis]Onset: 28-46-9534YxdhuldUditvvghm of lipid metabolism (19 sources)Pure hypercholesterolemia, unspecified; Translations: [Hyperlipidemia]Onset: 06-29-2016 Resolved: 83-93-1967YhakokwKbrwcuwuc hypertension (14 sources)Essential (primary) hypertension; Translations: [Essential hypertension]Onset: 35-11-3210YgdolhfFndwfkmrnbhfhfdc hemorrhage (4 sources)Hematochezia; Translations: [Melena]65-25-8021LnwxybknSwiiogzgnxcef symptoms and ill-defined conditions (3 sources)Polyuria; Translations: [Other polyuria]EpisodicImmunizations and screening for infectious disease (3 sources)Vaccination given; Translations: [Encounter for immunization]Episodic Inflammation; infection of eye (except that caused by tuberculosis or sexually transmitteddisease) (2 sources)Bacterial conjunctivitis; Translations: [Unspecified conjunctivitis] 80-43-8821IqvkmmweSufawwosrqseg gastroenteritis (4 sources)Colitis; Translations: [Noninfective gastroenteritis and colitis, unspecified]50-08-8328UfmotujeXpygpyywffb deficiencies (3 sources)Vitamin D deficiency; Translations: [Vitamin D deficiency, unspecified]ChronicOther aftercare (2 sources)Other nursing home (current) drug therapy; Translations: [OTH INTERMEDIATE CURRENT DRUG THERAPY]Onset: 53-72-6750IviwndopLimov aftercare (3 sources)Long-term current use of drug therapy; Translations: [Other nursing home (current) drug therapy]EpisodicOther connective tissue disease (4 sources)History of cervical spine fusion; Translations: [Arthrodesis status] 04-23-0198LopubrzxKlaze connective tissue disease (3 sources)Radicular pain; Translations: [Neuralgia and neuritis, unspecified] 01-44-6011GybrtuaxDggts female genital disorders (1 source)Pruritus of vagina; Translations: [Other specified noninflammatory disorders of vagina]47-11-0081OvahekbbMqdyl female genital disorders (1 source)Other specified noninflammatory disorders of vagina; Translations: [Other specified noninflammatorydisorders of vagina]Onset: 15-69-5427Qcptzkqr Other injuries and conditions due to external causes (3 sources)History of fall; Translations: [History of falling]EpisodicOther lower respiratory disease (2 sources)Cough; Translations: [Acute cough]62-84-8759QsundimyAjunb non- traumatic joint disorders (1 source)Shoulder pain; Translations: [Pain in unspecified shoulder]10-31-2024 EpisodicOther nutritional; endocrine; and metabolic disorders (2 sources)Hypercalcemia; Translations: [Hypercalcemia]27-04-8698NvwefhuUqfkc nutritional; endocrine; and metabolic disorders (6 sources)Overweight; Translations: [Overweight]53-53-3579EttqafnvBdypb nutritional; endocrine; and metabolic disorders (1 source)Overweight; Translations: [Overweight]34-78-0477IjgzyinwMhaum screening for suspected conditions (not mental disorders or infectious disease) (9 sources)Encounter for screening mammogram for malignant neoplasm of breast; Translations: [Patient encounter status]Onset: 81-46-2051DjknlcfqLtvovtjk of female genital organs (5 sources)Uterovaginal prolapse; Translations: [Uterovaginal prolapse, unspecified]Onset: 410586-91-9122NblcrviStngxpmc codes; unclassified (3 sources)Postmenopausal state; Translations: [Asymptomatic menopausal state] EpisodicResidual codes; unclassified (3 sources)Procedure not done; Translations: [Procedure and treatment not carried out because of patient's decision for unspecified reasons]Episodic Residual codes; unclassified (1 source)Asymptomatic menopausal stateEpisodicSpondylosis; intervertebral disc disorders; other back problems (7 sources)Cervical spondylosis; Translations: [Other spondylosis with radiculopathy, cervical region]97-03-2655IoyjyzmYanaizoucwa; intervertebral disc disorders; other back problems (4 sources)Low back pain; Translations: [Low back pain, unspecified]Onset: 711738-13-8862YyliohikJcyztam disorders (17 sources)Autoimmune thyroiditis; Translations: [Thyroiditis]Onset: 03-01-2022 ChronicThyroid disorders (1 source)Disorder of thyroid gland; Translations: [Disorder of thyroid, unspecified]48-91-5419UulevqzkDjvhg infection (6 sources)Herpes simplex; Translations: [Herpesviral infection, unspecified] Episodic Past or Other Problems Problem ClassificationProblemDateDocumented DateEpisodic/ChronicBacterial infection; unspecified site (3 sources)Bacterial infectious disease; Translations: [Bacterial infection, unspecified, in conditions classified elsewhere and of unspecified site]Onset: 09-67-7325VyicgzxnEwwdgfx and fatigue (3 sources)Malaise and fatigue; Translations: [Other malaise and fatigue]Onset: 12-19-9245IwkcklncHeikjruizv disorders (6 sources)Menopausal symptom; Translations: [Symptomatic menopausal or female climacteric states]Onset: 04-29-2016 Resolved: 45-59-0254JjgjmljVutgnkwk codes; unclassified (3 sources)Requires influenza virus vaccination; Translations: [Need for prophylactic vaccination and inoculation, Influenza]Onset: 05-38-1712Bheixsgv Unclassified (3 sources)Long-term current use of drug therapy; Translations: [Long-term (current) use of other medications]Onset: 34-23-9976Srwrktt tract infections (3 sources)Acute cystitis; Translations: [Acute cystitis without hematuria] Onset: 66-85-4050Kmduoqno Results Test NameValueInterpretationReference RangeFacilityXR CHEST 2 VIEWSon [...] process. ELECTRONICALLY SIGNED BY: Bonifacio Colindres DO [facility] HealthcareRadiology Study observation (narrative)[facility] HealthcareXR Chest 2 ViewsOrdered By: Bonifacio Colindres on 68-89-3486ZZIH Healthcare Work Phone: albumin [Mass/volume] in Serum or PlasmaOrdered By: Al Soto on 83-80-2593Xmrvyrq [Mass/Vol]4.2 g/dL2.9-4.4FMemorial Health System Selby General HospitalBasophils Auto (Bld) [#/Vol]Ordered By: Al Soto on 12-54-0995Zdxnwxvvr (Bld) [#/Vol]0.0 10 3/uL0.0-0.1FMemorial Health System Selby General HospitalBasophils/100 WBC Auto (Bld)Ordered By: Al Soto on 10-31-2024 Basophils/100 WBC (Bld)0.5 %0.2-2.0[facility] Eosinophils/100 WBC Auto (Bld)Ordered By: Al Soto on 10-31-2024 Eosinophils/100 WBC (Bld)1.2 %0.9-7.0[facility] Erythrocyte distribution width Auto (RBC) [Ratio]Ordered By: Al Soto on 55-37-8040Fumgzutmwqy distribution width (RBC) [Ratio]13.8 %11.0-15.0[facility] HospitalGlomerular filtration rate (GFR) estimation in non- AmericanOrdered By: Al Soto on 35-81-0679EMB/1.73 sq M.predicted among non-blacks MDRD (S/P/Bld) [Vol rate/Area]mL/min/{1.73_m2}>=60 mL/min/1.73m 2FMemorial Health System Selby General HospitalHematocrit Auto (Bld) [Volume fraction]Ordered By: Al Soto on 93-60-9774Pcgxgmdfib (Bld) [Volume fraction]44.1 %36.0-48.0 [facility] HospitalHemoglobin [Mass/volume] in BloodOrdered By: Al Soto on 88-22-1717Gggdbcuouk (Bld) [Mass/Vol]15.0 g/dL12.0-16.0 [facility] HospitalIgA [Mass/volume] in Serum or PlasmaOrdered By: Al Soto on 15-43-0176CiN [Mass/Vol]247 mg/dD42-915YimqscyrwMercy Health Tiffin HospitalIgG [Mass/volume] in Serum or PlasmaOrdered By: Al Soto on 84-24-9153NdM [Mass/Vol]1471 mg/bC874-1443GajlpoixwMercy Health Tiffin HospitalIgM [Mass/volume] in Serum or PlasmaOrdered By: Al Soto 47-45-1890IuJ [Mass/Vol]64 mg/yQ67-266NwvzjstsgMercy Health Tiffin HospitalImmunoglobulin light chains.kappa.free [Mass/volume] in SerumOrdered By: Al Soto 10-31-2024 Immunoglobulin light chains.kappa.free (S) [Mass/Vol]24.8 mg/LAbnormal3.3-19.4 [facility] HospitalImmunoglobulin light chains.kappa.free/Immunoglobulin light chains.lambda.free [MassOrdered By: Al Soto 37-55-9286Gsrimtsnudducp light chains.kappa.free/Immunoglobulin light chains.lambda.free (S) [Mass ratio]1.440.26-1.65[facility] HospitalComment on above:Performed at: [facility] [id number] Director: Craig Goel PhD, Phone: [phone] Immunoglobulin light chains.lambda.free [Mass/volume] in Serum or PlasmaOrdered By: Al Soto 21-85-3370Ifnadnuuuybolq light chains.lambda.free [Mass/Vol]17.2 mg/L5.7-26.3FMemorial Health System Selby General HospitalLaboratory - Chemistry and Chemistry - challengeOrdered By: Al Soto 10-31-2024 Calcium [Mass/Vol]10.3 mg/dLHigh8.5-10.1FMemorial Health System [facility] Chloride [Moles/Vol]104 mmol/N60-684SjbrywjydMercy Health Tiffin HospitalCO2 [Moles/Vol]24.8 mmol/L21.0-32.0[facility] HospitalCreatinine [Mass/Vol]0.90 mg/dL0.55-1.02[facility] HospitalGFR/1.73 sq M.predicted MDRD (S/P/Bld) [Vol rate/Area]mL/min/{1.73_m2}>=60 mL/min/1.73m 2 [facility] HospitalGlucose [Mass/Vol]110 mg/rLXpgz09-000DjnrrwvhqMercy Health Tiffin HospitalPotassium [Moles/Vol]3.9 mmol/L3.5-5.1FOhio State Harding Hospitalodium [Moles/Vol]140 mmol/K916-479HnszjjjpbMercy Health Tiffin HospitalUrea nitrogen [Mass/Vol]12.0 mg/dL7.0-18.0[facility] HospitalUrea nitrogen/Creatinine [Mass ratio]13.3 mg/mgMercy Health Tiffin HospitalLaboratory - Hematology and Cell countsOrdered By: Al Soto on 94-12-1033Pqulkknt granulocytes/100 WBC (Bld)0.0 %0.0-0.5FMemorial Health System Selby General HospitalLeukocytes [#/volume] corrected for nucleated erythrocytes in Blood by Automated counOrdered By: Al Soto on 88-10-4627WEC corrected for nucl RBC Auto (Bld) [#/Vol]6.6 10 3/uL4.0-11.0[facility] Lymphocytes Auto (Bld) [#/Vol]Ordered By: Al Soto on 30-57-4806Desfsdpfgll (Bld) [#/Vol]3.1 10 3/uL1.2-3.8[facility] HospitalLymphocytes/100 WBC Auto (Bld)Ordered By: Al Soto on 52-52-3063Zdovrbesutz/100 WBC (Bld) 46.7 %20.5-60.0[facility] HospitalMCH Auto (RBC) [Entitic mass] Ordered By: Al Soto on 19-78-1351REG (RBC) [Entitic mass]29.7 pg26.7-34.0 [facility] HospitalMCHC Auto (RBC) [Mass/Vol]Ordered By: Al Soto on 68-43-9452XLDA (RBC) [Mass/Vol]34.0 g/dL29.9-35.2FMemorial Health System Selby General HospitalMCV Auto (RBC) [Entitic vol]Ordered By: Al Soto on 95-54-2076YTP (RBC) [Entitic vol]87.3 fL81.0-99.0[facility] HospitalMonocytes Auto (Bld) [#/Vol]Ordered By: Al Soto on 10-31-2024 Monocytes (Bld) [#/Vol]0.3 10 3/uL0.3-0.8[facility] Monocytes/100 WBC Auto (Bld)Ordered By: Al Soto on 81-09-9828Ohndqptgm/100 WBC (Bld)4.9 %1.7-12.0[facility] HospitalNeutrophils Auto (Bld) [#/Vol]Ordered By: Al Soto on 53-28-5748Lualzzczsih (Bld) [#/Vol]3.1 10 3/uL1.4-6.5FMemorial Health System Selby General HospitalNeutrophils/100 WBC Auto (Bld) Ordered By: Al Soto on 63-95-1354Vrxtodykjsh/100 WBC (Bld)46.7 %43.0-75.0 [facility] HospitalNo Panel InformationOrdered By: Al Soto on 65-81-6557Rbcunrdbldz # (Auto)0.1 10 3/uL0.0-0.7FMemorial Health System Selby General HospitalImmature Granulocyte # (Auto)0.00 10 3/uL0.00-0.03[facility] HospitalProtein Electrophoresis M-SpikeNot Observed g/dLNot Observed [facility] HospitalProtein Electrophoresis NoteComment.[facility] HospitalComment on above:Protein electrophoresis scan will follow via computer,mail, or drilling field specialist delivery.Platelet mean volume Auto (Bld) [Entitic vol]Ordered By: Al Soto on 37-76-5567Tfivluxc mean volume (Bld) [Entitic vol]11.6 fL9.5-13.5Fire[facility] Regional Medical CenterPlatelets Auto (Bld) [#/Vol] Ordered By: Al Soto on 55-37-1786Ksvkjsyaz (Bld) [#/Vol]232 10 3/zY585-171 [facility] HospitalProtein [Mass/volume] in Serum or PlasmaOrdered By: Al Soto on 26-05-2929Keapshq [Mass/Vol]8.5 g/dL6.0-8.5FMemorial Health System Selby General HospitalRBC Auto (Bld) [#/Vol]Ordered By: Al Soto on 20-61-4093INL (Bld) [#/Vol]5.05 10 6/uL4.20-5.40[facility] Hospitalerum globulin measurement (mass/volume)Ordered By: Al Soto on 60-17-2054Tsnncbqu (S) [Mass/Vol]4.3 g/dLAbnormal2.2-3.9[facility] Hospitalerum or plasma albumin/globulin mass ratioOrdered By: Al Soto 28-84-2875Jbtbxfm/Globulin [Mass ratio]1.0 {ratio}0.7-1.7FOhio State Harding Hospitalerum or plasma alpha 1 globulin measurement by electrophoresis (mass/volume)Ordered By: Al Soto 48-41-3783Kebeu 1 globulin Elph [Mass/Vol]0.3 g/dL0.0-0.4FOhio State Harding Hospitalerum or plasma alpha 2 globulin measurement by electrophoresis (mass/volume)Ordered By: Al Soto 55-15-7716Ygyhe 2 globulin Elph [Mass/Vol]1.1 g/dLAbnormal 0.4-1.0[facility] Hospitalerum or plasma anion gap determination Ordered By: Al Soto 84-73-4710Sjzpq gap [Moles/Vol]15.1 mmol/LFOhio State Harding Hospitalerum or plasma beta globulin measurement by electrophoresis (mass/volume)Ordered By: Al Soto 57-61-4335Pjcb globulin Elph [Mass/Vol]1.4 g/dLAbnormal0.7-1.3FMemorial Health System [facility] Serum or plasma gamma globulin measurement by electrophoresis (mass/volume) Ordered By: Al Soto 77-93-3161Lxzkv globulin Elph [Mass/Vol]1.5 g/dL 0.4-1.8[facility] Hospitalerum or plasma immunoelectrophoresis interpretationOrdered By: Al Soto on 33-99-4196Xmkabtuzafwxtp IEP [Interp] Comment.[facility] HospitalComment on above:No monoclonality detected.Glomerular filtration rate (GFR) estimation in non- Ordered By: Marcela Haynes on 38-56-4615URQ/1.73 sq M.predicted among non- blacks MDRD (S/P/Bld) [Vol rate/Area]mL/min/{1.73_m2}>=60 mL/min/1.73m 2 [facility] HospitalLaboratory - Chemistry and Chemistry - challengeOrdered By: Marcela Haynes on 59-86-0003Cylzavqhnb [Mass/Vol]0.85 mg/dL0.55-1.02[facility] HospitalGFR/1.73 sq M.predicted MDRD (S/P/Bld) [Vol rate/Area]mL/min/{1.73_m2}>=60 mL/min/1.73m 2FMemorial Health System Selby General HospitalVaginitis DNA Probeon 57-81-8800SepwiffVwqrgjfrEgypvnKZYFevbpUC West Chester HospitalComment on above:Result Comment: for Zaida sp. Method of testing is a DNA probe intended for detection and identification of Zaida species, Gardnerella vaginalis, and Trichomonas vaginalis nucleic acid in vaginal fluid specimens from patients with symptoms of vaginitis/vaginosis. Performed By: #### VAGP #### [employer] [address] [place], [place] [address] [employer]: Cara GonsalesllaPositiveAbnoSumma HealthComment on above:Result Comment: for Gardnerella vaginalis Performed By: #### VAGP #### [employer] [address] [place], [place] [address] [employer]: Kobe GonsalesonasNegTriHealthComment on above:Result Comment: for Trichomonas Vaginalis Performed By: #### VAGP #### [employer] [address] [place] [address] [employer]: Matthew España MDVaginitis DNA Probeon 28-61-1733Ygbort.VAGINAL SWABNormalMercy Mercy Hospital BakersfieldComment on above:Performed By: #### VAGP #### [employer] [address] [place] [address] [employer]: Matthew España MDBasophils Auto (Bld) [#/Vol]on 04-18-2024 Basophils (Bld) [#/Vol]Automated basophil count0.0-0.1FMemorial Health System Selby General HospitalBasophils/100 WBC Auto (Bld)on 28-84-0142Odfzxkwsv/100 WBC (Bld)Automated basophil %0.2-2.0[facility] HospitalEosinophils/100 WBC Auto (Bld)on 83-96-6327Zsfliwxstnl/100 WBC (Bld)Automated eosinophil %Low0.9-7.0 [facility] HospitalErythrocyte distribution width Auto (RBC) [Ratio]on 17-27-8466Gsskiuroixw distribution width (RBC) [Ratio]Erythrocyte distribution width [Ratio] by Automated count11.0-15.0[facility] HospitalEstimated glomerular filtration rate (GFR) non- Americanon 19-74-3510SII/1.73 sq M.predicted among non-blacks MDRD (S/P/Bld) [Vol rate/Area]Estimated glomerular filtration rate (GFR) non- AmericanLow>=60 mL/min/1.73m 2FMemorial Health System Selby General HospitalHematocrit Auto (Bld) [Volume fraction]on 01-38-5507Gxilssspok (Bld) [Volume fraction]Hematocrit [Volume Fraction] of Blood by Automated count36.0-48.0[facility] Hemoglobin [Mass/volume] in Bloodon 82-96-7096Opsupifglk (Bld) [Mass/Vol] Hemoglobin [Mass/volume] in Blood12.0-16.0[facility] Laboratory - Chemistry and Chemistry - challengeon 28-15-8887Tafscxg [Mass/Vol] 9.8 mg/dL8.5-10.1FMemorial Health System Selby General HospitalChloride [Moles/Vol]101 mmol/L 98-107[facility] HospitalCO2 [Moles/Vol]24.7 mmol/L21.0-32.0 [facility] HospitalCreatinine [Mass/Vol]1.02 mg/dL0.55-1.02 [facility] HospitalGFR/1.73 sq M.predicted MDRD (S/P/Bld) [Vol rate/Area]mL/min/{1.73_m2}>=60 mL/min/1.73m 2FMemorial Health System [facility] Hospital Glucose [Mass/Vol]123 mg/tMYtny20-527RdwwhqkvuMercy Health Tiffin HospitalPotassium [Moles/Vol]3.6 mmol/L3.5-5.1FOhio State Harding Hospitalodium [Moles/Vol] 136 mmol/Q152-320VevkvdqyqMercy Health Tiffin HospitalUrea nitrogen [Mass/Vol]13.0 mg/dL7.0-18.0[facility] HospitalUrea nitrogen/Creatinine [Mass ratio]12.7 mg/mgMercy Health Tiffin HospitalLaboratory - Hematology and Cell countson 77-39-2144Bmkwvbaq granulocytes/100 WBC (Bld)0.2 %0.0-0.5FMemorial Health System Selby General HospitalLeukocytes [#/volume] corrected for nucleated erythrocytes in Blood by Automated counon 66-73-9953NEW corrected for nucl RBC Auto (Bld) [#/Vol]Leukocytes [#/volume] corrected for nucleated erythrocytes in Blood by Automated counHigh4.0-11.0[facility] HospitalLymphocytes Auto (Bld) [#/Vol]on 43-18-5853Jyskyzyyehf (Bld) [#/Vol]Lymphocytes [#/volume] in Blood by Automated countHealthsouth Rehabilitation Hospital1.2-3.8[facility] Lymphocytes/100 WBC Auto (Bld)on 47-04-8331Ryznutodqmb/100 WBC (Bld) Lymphocytes/100 leukocytes in Blood by Automated count20.5-60.0[facility] HospitalMCH Auto (RBC) [Entitic mass]on 61-96-5782AWV (RBC) [Entitic mass]MCH [Entitic mass] by Automated count26.7-34.0[facility] HospitalMCHC Auto (RBC) [Mass/Vol]on 95-25-5343HPRQ (RBC) [Mass/Vol]MCHC [Mass/volume] by Automated count29.9-35.2FMemorial Health System Selby General HospitalMCV Auto (RBC) [Entitic vol]on 98-85-4029HUK (RBC) [Entitic vol]MCV [Entitic volume] by Automated count81.0-99.0[facility] HospitalMonocytes Auto (Bld) [#/Vol]on 97-78-5561Tcevsqsqs (Bld) [#/Vol]Automated blood monocyte count0.3-0.8 [facility] HospitalMonocytes/100 WBC Auto (Bld)on 04-18-2024 Monocytes/100 WBC (Bld)Automated monocyte %1.7-12.0[facility] HospitalNeutrophils Auto (Bld) [#/Vol]on 79-51-1286Yjlixyschle (Bld) [#/Vol] Neutrophils [#/volume] in Blood by Automated countHigh1.4-6.5FMemorial Health System Selby General HospitalNeutrophils/100 WBC Auto (Bld)on 26-88-2273Lvzxdakafrn/100 WBC (Bld)Automated neutrophil %43.0-75.0[facility] HospitalNo Panel Informationon 39-63-0708Qvurgfvmcse # (Auto)0.0 10 3/uL0.0-0.7FMemorial Health System Selby General HospitalImmature Granulocyte # (Auto)0.02 10 3/uL0.00-0.03[facility] HospitalPlatelet mean volume Auto (Bld) [Entitic vol]on 51-12-7181Tiuoinyj mean volume (Bld) [Entitic vol]Platelet mean volume [Entitic volume] in Blood by Automated count9.5-13.5FMemorial Health System Selby [facility] Hospital Platelets Auto (Bld) [#/Vol]on 34-02-9392Frxolpdfq (Bld) [#/Vol]Platelets [#/volume] in Blood by Automated czeqr544-512LvjqjzerpMercy Health Tiffin Hospital RBC Auto (Bld) [#/Vol]on 15-78-7594RSB (Bld) [#/Vol]Erythrocytes [#/volume] in Blood by Automated count4.20-5.40[facility] Hospitalerum or plasma anion gap determinationon 86-41-7529Pnlkw gap [Moles/Vol]Serum or plasma anion gap determinationMercy Health Tiffin HospitalBasophils Auto (Bld) [#/Vol]on 99-35-0688Payotifhf (Bld) [#/Vol]Automated basophil count0.0-0.1 [facility] HospitalBasophils/100 WBC Auto (Bld)on 03-08-2024 Basophils/100 WBC (Bld)Automated basophil %0.2-2.0[facility] HospitalCholesterol in LDL Calc [Mass/Vol]on 47-55-0548Bxkhooipcli in LDL [Mass/Vol]Cholesterol in LDL [Mass/volume] in Serum or Plasma by calculation [facility] HospitalComment on above:<100 mg/dl FKLBYWL256-910 mg/dl NEAR OR ABOVE DVRLEAG923-870 mg/dl BORDERLINE OMIG243-182 mg/dl HIGH>190 mg/dl VERY HIGHCholesterol in VLDL Calc [Mass/Vol]on 44-27-4139Hyloyqkfnem in VLDL [Mass/Vol]Cholesterol in VLDL [Mass/volume] in Serum or Plasma by calculationMercy Health Tiffin HospitalEosinophils/100 WBC Auto (Bld)on 49-38-2128Lmzjkukprrs/100 WBC (Bld)Automated eosinophil %0.9-7.0[facility] HospitalErythrocyte distribution width Auto (RBC) [Ratio]on 38-71-0153Zcndwmxnngb distribution width (RBC) [Ratio]Erythrocyte distribution width [Ratio] by Automated count11.0-15.0[facility] Estimated glomerular filtration rate (GFR) non- Americanon 03-08-2024 GFR/1.73 sq M.predicted among non-blacks MDRD (S/P/Bld) [Vol rate/Area]Estimated glomerular filtration rate (GFR) non->=60 mL/min/1.73m 2 [facility] HospitalGlobulin Calc (S) [Mass/Vol]on 03-08-2024 Globulin (S) [Mass/Vol]Serum globulin measurement by calculation (mass/volume) [facility] HospitalHematocrit Auto (Bld) [Volume fraction]on 26-70-9960Kvovbfmgxk (Bld) [Volume fraction]Hematocrit [Volume Fraction] of Blood by Automated count36.0-48.0[facility] HospitalHemoglobin [Mass/volume] in Bloodon 75-22-1447Alehngohfg (Bld) [Mass/Vol]Hemoglobin [Mass/volume] in Blood12.0-16.0[facility] HospitalLaboratory - Chemistry and Chemistry - challengeon 34-58-0488Hnsupqe [Mass/Vol]3.7 g/dL 3.4-5.0[facility] HospitalALP [Catalytic activity/Vol]76 U/L46-116 [facility] HospitalALT [Catalytic activity/Vol]56 U/L14-59 [facility] HospitalAST [Catalytic activity/Vol]45 U/IIcwf66-43 [facility] HospitalBilirubin [Mass/Vol]0.5 mg/dL0.2-1.0[facility] HospitalCalcium [Mass/Vol]9.2 mg/dL8.5-10.1FMemorial Health System Selby General HospitalChloride [Moles/Vol]106 mmol/L66-064PlhdrfibaMercy Health Tiffin HospitalCholesterol [Mass/Vol]151 mg/dL<=200[facility] Cholesterol in HDL [Mass/Vol]37 mg/rTZio52-54RwysguwzxMercy Health Tiffin Hospital Comment on above:> or =60 mg/dl - LOW CARDIOVASCULAR RISK<40 mg/dl - HIGH CARDIOVASCULAR RISKCO2 [Moles/Vol]27.0 mmol/L21.0-32.0[facility] HospitalCreatinine [Mass/Vol]0.91 mg/dL0.55-1.02[facility] GFR/1.73 sq M.predicted MDRD (S/P/Bld) [Vol rate/Area]mL/min/{1.73_m2}>=60 mL/min/1.73m 2FMemorial Health System Selby General HospitalGlucose [Mass/Vol]107 mg/dLHigh 74-106[facility] HospitalPotassium [Moles/Vol]4.0 mmol/L3.5-5.1 [facility] HospitalProtein [Mass/Vol]7.6 g/dL6.4-8.2FOhio State Harding Hospitalodium [Moles/Vol]142 mmol/T229-845NgnmeiujlMercy Health Tiffin HospitalTriglyceride [Mass/Vol]149 mg/dL<=150[facility] HospitalTSH Qn1.900 m[IU]/L0.358-3.740[facility] HospitalUrea nitrogen [Mass/Vol]13.0 mg/dL7.0-18.0[facility] HospitalUrea nitrogen/Creatinine [Mass ratio]14.3 mg/mgMercy Health Tiffin Hospital Laboratory - Hematology and Cell countson 99-19-2268Evvoymvb granulocytes/100 WBC (Bld)0.1 %0.0-0.5FMemorial Health System Selby General HospitalLeukocytes [#/volume] corrected for nucleated erythrocytes in Blood by Automated counon 96-63-5969BUD corrected for nucl RBC Auto (Bld) [#/Vol]Leukocytes [#/volume] corrected for nucleated erythrocytes in Blood by Automated coun4.0-11.0[facility] HospitalLymphocytes Auto (Bld) [#/Vol]on 96-68-9358Zfzdpowbelc (Bld) [#/Vol]Lymphocytes [#/volume] in Blood by Automated count1.2-3.8[facility] HospitalLymphocytes/100 WBC Auto (Bld)on 03-08-2024 Lymphocytes/100 WBC (Bld)Lymphocytes/100 leukocytes in Blood by Automated count 20.5-60.0[facility] NorthH Auto (RBC) [Entitic mass]on 76-17-3809WEE (RBC) [Entitic mass]MCH [Entitic mass] by Automated count26.7-34.0 [facility] HospitalMCHC Auto (RBC) [Mass/Vol]on 15-75-8154WMPR (RBC) [Mass/Vol]MCHC [Mass/volume] by Automated count29.9-35.2FMemorial Health System Selby General HospitalMCV Auto (RBC) [Entitic vol]on 53-95-2617RNJ (RBC) [Entitic vol] MCV [Entitic volume] by Automated count81.0-99.0[facility] HospitalMonocytes Auto (Bld) [#/Vol]on 17-50-7644Jyttkobod (Bld) [#/Vol]Automated blood monocyte count0.3-0.8[facility] HospitalMonocytes/100 WBC Auto (Bld)on 06-86-1879Nsomrlpni/100 WBC (Bld)Automated monocyte %1.7-12.0 [facility] HospitalNeutrophils Auto (Bld) [#/Vol]on 03-08-2024 Neutrophils (Bld) [#/Vol]Neutrophils [#/volume] in Blood by Automated count 1.4-6.5FMemorial Health System Selby General HospitalNeutrophils/100 WBC Auto (Bld)on 80-97-6867Ryglpaqbtii/100 WBC (Bld)Automated neutrophil %Low43.0-75.0[facility] HospitalNo Panel Informationon 54-22-4771Bntpkxildwx # (Auto)0.2 10 3/uL0.0-0.7FMemorial Health System Selby General HospitalImmature Granulocyte # (Auto)0.01 10 3/uL0.00-0.03[facility] HospitalPlatelet mean volume Auto (Bld) [Entitic vol]on 85-94-4281Fcsmwpte mean volume (Bld) [Entitic vol]Platelet mean volume [Entitic volume] in Blood by Automated count9.5-13.5FMemorial Health System Selby General HospitalPlatelets Auto (Bld) [#/Vol]on 87-53-4469Jpzamswax (Bld) [#/Vol]Platelets [#/volume] in Blood by Automated ouemn977-584HfkwlrvqsMercy Health Tiffin HospitalRBC Auto (Bld) [#/Vol]on 97-01-9904SVE (Bld) [#/Vol]Erythrocytes [#/volume] in Blood by Automated count4.20-5.40[facility] Serum or plasma albumin/globulin mass ratioon 50-32-1380Xhjfiuq/Globulin [Mass ratio]Serum or plasma albumin/globulin mass ratioHolmes County Joel Pomerene Memorial Hospitalerum or plasma anion gap determinationon 98-47-1315Fljic gap [Moles/Vol] Serum or plasma anion gap determinationHolmes County Joel Pomerene Memorial Hospitalerum or plasma total cholesterol/high density lipoprotein (HDL) cholesterol mass lai 21-13-1639Nrjkporaykw.total/Cholesterol in HDL [Mass ratio]Serum or plasma total cholesterol/high density lipoprotein (HDL) cholesterol mass [facility] HospitalComment on above:3.3 - 4.4 LOW RISK4.4 - 7.1 AVERAGE RISK7.1 - 11.0 MODERATE RISK>11.0 HIGH RISKDAT - TSHon 41-09-0138BQS4.299 uIU/mL Critically low0.358-3.740K[facility]tering Health PrebleComment on above:Performed By: #### DATTSH #### [facility] [address] [place] [address] Dr. Kali [facility] Memorial HospitalComment on above: Result Comment: <0.34 UIU/ml HYPERTHYROID 0.34-5.60 UIU/ml EUTHYROID >5.60 UIU/ml HYPOTHYROIDPerformed By: #### DATTSH #### [facility] [address] [place] [address] Dr. Kali Haynes MAMM SCREEN 3D IFEANYI CADon 82-03-7896GB MAMM SCREEN 3D IFEANYI CAD Patient: EPI DAILEY Exam Date: 05/16/2022 : 1950 Gender:F Ordering : DR AL SOTO D.O. Admission #: [id number] Family : Order #: [id number] CLICK HERE TO VIEW EXAM RADIOLOGY REPORT [...] Treatments None Family Cancers None LOCATION: [facility] BREAST COMPOSITION: Heterogeneously dense,which may obscure small [...] by: Dandre Ward M.D. on 05/16/2022 at 14:31NoSumma Health Ak[facility] Campus AUTO DIFFon 89-98-2961ZPKZ #0.0 103/ulNormal0.0-0.1[facility] PrebleComment on above:Performed By: #### CBC #### [facility] [address] [place] [address] Dr. Kali HaynesBasophils/100 WBC (Bld)0.5 %Normal0.2-2.0[facility] Comment on above:Performed By: #### CBC #### [facility] [address] [place] [address] Dr. Kali Mendoza #0.2 103/ulNormal0.0-0.7ThHarrison Community HospitalComment on above: Performed By: #### CBC #### [facility] [address] [place] [address] Dr. Kali Koenigosinophils/100 WBC (Bld)2.8 %Normal0.9-7.0[facility] Comment on above:Performed By: #### CBC #### [facility] [address] [place] [address] Dr. Kali Koenigrythrocyte distribution width (RBC) [Ratio]13.9 %Ysvyvi06.0-15.0 [facility] PrebleComment on above:Performed By: #### CBC #### [facility] [address] [place] [address] Dr. Kali HaynesHematocrit (Bld) [Volume fraction]43.0 %Ibrsto32.0-48.0[facility] PrebleComment on above:Performed By: #### CBC #### [facility] [address] [place] [address] Dr. Kali HaynesHemoglobin (Bld) [Mass/Vol]14.5 g/vZOpidck61.0-16.0The [facility] CenterComment on above:Performed By: #### CBC #### [facility] [address] [place] [address] Dr. Kali Marie #0.01 10e3/ulNormal0.00-0.03The [facility] Medical CenterComment on above:Performed By: #### CBC #### [facility] [address] [place] [address] Dr. Kali Marie %0.2 %Normal0.0-0.5The [facility] Medical CenterComment on above: Performed By: #### CBC #### [facility] [address] [place] [address] Dr. Kali Estevez #3.9 103/ulCritically high1.2-3.8The [facility] Comment on above:Performed By: #### CBC #### [facility] [address] [place] [address] Dr. Kali De La Garzahocytes/100 WBC (Bld)59.7 %Rdujjs89.5-60.0The [facility] CenterComment on above:Performed By: #### CBC #### [facility] [address] [place] [address] Dr. Kali MendezUAL DIFF REQNONormalThe [facility] CenterComment on above: Performed By: #### CBC #### [facility] [address] [place] [address] Dr. Kali Corona (RBC) [Entitic mass]29.3 tcMjudfq83.7-34.0The [facility] CenterComment on above:Performed By: #### CBC #### [facility] [address] [place] [address] Dr. Kali Corona (RBC) [Mass/Vol]33.7 g/nYMdpsej61.9-35.2The [facility] CenterComment on above:Performed By: #### CBC #### [facility] [address] [place], [place] [address] Dr. Kali CoronaV (RBC) [Entitic vol]86.9 nXSnlpgy72.0-99.0The [facility] CenterComment on above:Performed By: #### CBC #### [facility] [address] [place] [address] Dr. Kali Gurrola #0.4 103/ulNormal0.3-0.8The [facility] CenterComment on above:Performed By: #### CBC #### [facility] [address] [place] [address] Dr. Kali Hernandesocytes/100 WBC (Bld)6.5 %Normal1.7-12.0The [facility] Comment on above:Performed By: #### CBC #### [facility] [address] [place] [address] Dr. Kali Shell #2.0 103/ulNormal1.4-6.5The [facility] CenterComment on above:Performed By: #### CBC #### [facility] [address] [place] [address] Dr. Kali Keatingutrophils/100 WBC (Bld)30.3 %Critically low43.0-75.0The [facility] Medical CenterComment on above:Performed By: #### CBC #### [facility] [address] [place] [address] Dr. Kali Lorenzolet mean volume (Bld) [Entitic vol]11.1 fLNormal9.5-13.5The [facility] CenterComment on above:Performed By: #### CBC #### [facility] [address] [place] [address] Dr. Kali HaynesPLT221 103/ndOulozb521-121Ixj [facility] CenterComment on above: Performed By: #### CBC #### [facility] [address] [place] [address] Dr. Kali HaynesRBC4.95 106/ulNormal4.20-5.40The [facility] CenterComment on above:Performed By: #### CBC #### [facility] [address] [address] [address] Kali HaynesWBC6.5 103/ulNormal4.0-11.0The [facility] CenterComment on above: Performed By: #### CBC #### [facility] [address] [place] [address] Dr. Kali García PROFILEon 74-00-6482UIJL-HDL RATIO NORMSEE BELOWOhioHealthComment on above:Result Comment: 3.3 - 4.4 LOW RISK 4.4 - 7.1 AVERAGE RISK 7.1 - 11.0 MODERATE RISK >11.0 HIGH RISKPerformed By: #### TSH, BMP, LIPID, ALT #### [facility] [address] [place] [address] Dr. Kali Andrewsesterol [Mass/Vol]151 mg/dLNormal<=200The [facility] Comment on above:Performed By: #### TSH, BMP, LIPID, ALT #### [facility] [address] [place] [address] Dr. Kali Andrewsesterol in HDL [Mass/Vol]39 mg/dLCritically zmj84-30Kla [facility] CenterComment on above:Performed By: #### TSH, BMP, LIPID, ALT #### [facility] [address] [place] [address] Dr. Kali Andrewsesterol in LDL [Mass/Vol]85.6 mg/dLOhioHealthComment on above:Performed By: #### TSH, BMP, LIPID, ALT #### [facility] [address] [place] [address] Dr. Kali Cortes.total/Cholesterol in HDL [Mass ratio]3.9 {ratio} NormalThe [facility] Medical CenterComment on above:Performed By: #### TSH, BMP, LIPID, ALT #### [facility] [address] [place] [address] Dr. Kali Conner NORMAL> or = 60 mg/dl - LOW CARDIOVASCULAR RISK <40 mg/dl - HIGH CARDIOVASCULAR RISKNoMercy Health St. Vincent Medical CenterComment on above:Performed By: #### TSH, BMP, LIPID, ALT #### [facility] [address] [address] [address] Kali Holguin CALC NORMALSEE BELOWOhioHealthComment on above:Result Comment: <100 mg/dl OPTIMAL 100 - 129 mg/dl NEAR OR ABOVE OPTIMAL 130 - 159 mg/dl BORDERLINE HIGH 160 - 189 mg/dl HIGH >190 mg/dl VERY HIGH Performed By: #### TSH, BMP, LIPID, ALT #### [facility] [address] [address] [address] Kali HaynesTriglyceride [Mass/Vol]132 mg/dLNormal<=150[facility] Comment on above:Performed By: #### TSH, BMP, LIPID, ALT #### [facility] [address] [address] [address] Kali HaynesVLDL CALC26.4 mg/dLOhioHealthComment on above: Performed By: #### TSH, BMP, LIPID, ALT #### [facility] [address] [place] [address] Dr. Kali HaynesPROF CHEM 8 (BAS METB)on 01-35-3376Mhadi gap [Moles/Vol]12.5 mmol/LNormalKettering Health PrebleComment on above:Performed By: #### TSH, BMP, LIPID, ALT #### [facility] [address] [address] [address] Kali HaynesCalcium [Mass/Vol]9.4 mg/dLNormal8.5-10.1[facility] Comment on above:Performed By: #### TSH, BMP, LIPID, ALT #### [facility] [address] [place] [address] Dr. Kali HaynesChloride [Moles/Vol]103 mmol/XWtbted19-206Xon [facility] Comment on above:Performed By: #### TSH, BMP, LIPID, ALT #### [facility] [address] [address] [address] Kali HaynesCO2 [Moles/Vol]26.3 mmol/RHrzklm75.0-32.0[facility] Comment on above:Performed By: #### TSH, BMP, LIPID, ALT #### [facility] [address] [address] [address] Kali HaynesCreatinine [Mass/Vol]0.82 mg/dLNormal0.55-1.02The [facility] Medical CenterComment on above:Performed By: #### TSH, BMP, LIPID, ALT #### [facility] [address] [address] [address] Kali KoenigGFR-AF SWISS>60Normal>=60The [facility] Medical CenterComment on above:Performed By: #### TSH, BMP, LIPID, ALT #### [facility] [address] [place] [address] Dr. Kali Sanz-NON AF SWISS>60Normal>=60The [facility] Medical CenterComment on above:Performed By: #### TSH, BMP, LIPID, ALT #### [facility] [address] [place] [address] Dr. Kali HaynesGlucose [Mass/Vol]110 mg/dLCritically ajhv31-326Yjx [facility] CenterComment on above:Performed By: #### TSH, BMP, LIPID, ALT #### [facility] [address] [place] [address] Dr. Kali HaynesPotassium [Moles/Vol]3.8 mmol/LNormal3.5-5.1[facility] Comment on above:Performed By: #### TSH, BMP, LIPID, ALT #### [facility] [address] [place] [address] Dr. Kali Turnerdium [Moles/Vol]138 mmol/YXtgtbj557-294Ayf [facility] Comment on above:Performed By: #### TSH, BMP, LIPID, ALT #### [facility] [address] [place] [address] Dr. Kali HaynesUrea nitrogen [Mass/Vol]17.0 mg/dLNormal7.0-18.0The [facility] Medical CenterComment on above:Performed By: #### TSH, BMP, LIPID, ALT #### [facility] [address] [place] [address] Dr. Kali Yi nitrogen/Creatinine [Mass ratio]20.7 mg/mgNormalThe [facility] CenterComment on above:Performed By: #### TSH, BMP, LIPID, ALT #### [facility] [address] [place] [address] Dr. Kali Moncada 03-28-7514HTC [Catalytic activity/Vol]36 U/OZkiphh11-53Ivo [facility] CenterComment on above:Performed By: #### TSH, BMP, LIPID, ALT #### [facility] [address] [place] [address] Dr. Kali Goodman 87-42-2822XSM9.788 uIU/mLCritically high0.358-3.740The [facility] CenterComment on above:Performed By: #### TSH, BMP, LIPID, ALT #### [facility] [address] [place] [address] Dr. Kali Lara AUTO DIFFon 89-72-2840CIKC #0.0 103/ulNormal0.0-0.1The [facility] CenterComment on above:Performed By: #### CBC #### [facility] [address] [place] [address] Dr. Kali Moffettsophils/100 WBC (Bld)0.5 %Normal0.2-2.0[facility] Comment on above:Performed By: #### CBC #### [facility] [address] [place] [address] Dr. Kali Mendoza #0.2 103/ulNormal0.0-0.7The [facility] CenterComment on above: Performed By: #### CBC #### [facility] [address] [place] [address] Dr. Kali Koenigosinophils/100 WBC (Bld)2.6 %Normal0.9-7.0The [facility] Comment on above:Performed By: #### CBC #### [facility] [address] [place] [address] Dr. Kali Koenigrythrocyte distribution width (RBC) [Ratio]14.4 %Numwfa80.0-15.0 The [facility] Medical CenterComment on above:Performed By: #### CBC #### [facility] [address] [place] [address] Dr. Kali HaynesHematocrit (Bld) [Volume fraction]40.4 %Sasftl69.0-48.0The [facility] CenterComment on above:Performed By: #### CBC #### [facility] [address] [place] [address] Dr. Kali HaynesHemoglobin (Bld) [Mass/Vol]13.3 g/dTMtypdz74.0-16.0The [facility] CenterComment on above:Performed By: #### CBC #### [facility] [address] [place] [address] Dr. Kali Marie #0.01 10e3/ulNormal0.00-0.03The [facility] CenterComment on above:Performed By: #### CBC #### [facility] [address] [place] [address] Dr. Kali Marie %0.2 %Normal0.0-0.5The [facility] CenterComment on above: Performed By: #### CBC #### [facility] [address] [place] [address] Dr. Kali Estevez #3.0 103/ulNormal1.2-3.8The [facility] CenterComment on above:Performed By: #### CBC #### [facility] [address] [place] [address] Dr. Kali Willismphocytes/100 WBC (Bld)48.6 %Hiuzar61.5-60.0The [facility] CenterComment on above:Performed By: #### CBC #### [facility] [address] [place] [address] Dr. Kali MendezUAL DIFF REQNONormalThe [facility] CenterComment on above: Performed By: #### CBC #### [facility] [address] [place] [address] Dr. Kali Aodrno (RBC) [Entitic mass]29.0 thIzfqiw72.7-34.0The [facility] CenterComment on above:Performed By: #### CBC #### [facility] [address] [place] [address] Dr. Kali Corona (RBC) [Mass/Vol]32.9 g/hJRyrizp41.9-35.2The [facility] CenterComment on above:Performed By: #### CBC #### [facility] [address] [place] [address] Dr. Kali Corona (RBC) [Entitic vol]88.0 cPMmzmkc13.0-99.0The [facility] CenterComment on above:Performed By: #### CBC #### [facility] [address] [place] [address] Dr. Kali Gurrola #0.5 103/ulNormal0.3-0.8The [facility] CenterComment on above:Performed By: #### CBC #### [facility] [address] [place] [address] Dr. Kali Hernandesocytes/100 WBC (Bld)7.4 %Normal1.7-12.0The [facility] Comment on above:Performed By: #### CBC #### [facility] [address] [place] [address] Dr. Kali Shell #2.5 103/ulNormal1.4-6.5The [facility] CenterComment on above:Performed By: #### CBC #### [facility] [address] [place] [address] Dr. Kali Keatingutrophils/100 WBC (Bld)40.7 %Critically low43.0-75.0The [facility] CenterComment on above:Performed By: #### CBC #### [facility] [address] [place] [address] Dr. Kali Lorenzolet mean volume (Bld) [Entitic vol]11.3 fLNormal9.5-13.5The [facility] CenterComment on above:Performed By: #### CBC #### [facility] [address] [address] [address] Kali HaynesPLT218 103/brXpbfdd525-552Tvy [facility] CenterComment on above: Performed By: #### CBC #### [facility] [address] [address] [address] Kali HaynesRBC4.59 106/ulNormal4.20-5.40The [facility] CenterComment on above:Performed By: #### CBC #### [facility] [address] [address] [address] Kali HaynesWBC6.2 103/ulNormal4.0-11.0The [facility] CenterComment on above: Performed By: #### CBC #### [facility] [address] [address] [address] Kali Anna for Release of Medical Recordson [id number] for Release of Medical [id number]#1.00CD:[address] [place] [address] for Release of Medical Records [id number]#1.00CD:[address] [place], [place] [address]Retail - Clinical Noteon 35-68-9747Tuvobg - Clinical Note [id number]#1.00CD:[address] [place], [place] [address]BASIC METABOLIC PANELon 96-44-6766Vruzhkj [Mass/Vol]9.4 mg/dLNormal 8.6-10.3The [facility] HospitalComment on above:Order Comment: No: Do not add to previous drawPerformed By: #### 11838, 09580, 19386 #### [facility] [address] [place] [address], USAChloride [Moles/Vol]102 mmol/QMegugp45-367Ciw [facility] HospitalComment on above:Order Comment: No: Do not add to previous drawPerformed By: #### 56063, 38090, 40899 #### [facility] [address] [place] [address], USACO2 [Moles/Vol]27 mmol/FEqmphq00-95Ouz [facility] HospitalComment on above:Order Comment: No: Do not add to previous draw Performed By: #### 51361, 43952, 93377 #### [facility] [address] [place] [address], USACreatinine [Mass/Vol]0.63 mg/dLNormal0.60-1.20The [facility] HospitalComment on above:Order Comment: No: Do not add to previous drawPerformed By: #### 01291, 19015, 79521 #### [facility] [address] [place] [address], USAGFR/1.73 sq M predicted among blacks MDRD (S/P/Bld) [Vol rate/Area]mL/min/{1.73_m2}Normal>60The [facility] Comment on above:Order Comment: No: Do not add to previous drawPerformed By: #### 22404, 65807, 77479 #### [facility] [address] [place] [address], USAGFR/1.73 sq M predicted among non-blacks MDRD (S/P/Bld) [Vol rate/Area]mL/min/{1.73_m2}Normal>60The [facility] Comment on above:Order Comment: No: Do not add to previous drawPerformed By: #### 38533, 63122, 52834 #### [facility] [address] [place] [address], USAGlucose [Mass/Vol]129 mg/bROxit95-100Okn [facility] HospitalComment on above:Order Comment: No: Do not add to previous drawPerformed By: #### 33248, 28923, 77932 #### [facility] [address] [place] [address], USAPotassium [Moles/Vol]3.2 mmol/LLow3.5-5.1The [facility] HospitalComment on above:Order Comment: No: Do not add to previous drawPerformed By: #### 87525, 55929, 26193 #### [facility] [address] [place] [address], USASodium [Moles/Vol]137 mmol/NZliqeu826-446Dzt [facility] HospitalComment on above:Order Comment: No: Do not add to previous drawPerformed By: #### 66363, 33847, 77077 #### [facility] [address] [place] [address], USAUrea nitrogen [Mass/Vol]11 mg/dLNormal7-25The [facility] HospitalComment on above:Order Comment: No: Do not add to previous drawPerformed By: #### 59874, 34668, 45474 #### [facility] [address] [facility] [place] [address], USACBC COMPLETE BLOOD COUNTon 57-16-3655Zxwwftjcbht distribution width (RBC) [Ratio]15.2 %High11.5-15.0The [facility] HospitalComment on above:Order Comment: No: Do not add to previous draw Performed By: #### 25243, 38157, 32192 #### [facility] [address] [facility] [place] [address], USAHematocrit (Bld) [Volume fraction]37.7 %Vdwgmz24.0-45.0The [facility] HospitalComment on above:Order Comment: No: Do not add to previous drawPerformed By: #### 15316, 05292, 02363 #### [facility] [address] [place] [address], USAHemoglobin (Bld) [Mass/Vol]12.7 g/oRMegbqh30.0-15.0The [facility] HospitalComment on above:Order Comment: No: Do not add to previous drawPerformed By: #### 95066, 16985, 62551 #### [facility] [address] [place] [address], [facility] (RBC) [Entitic mass]28.7 rnIizhtk09.0-33.0The [facility] HospitalComment on above:Order Comment: No: Do not add to previous drawPerformed By: #### 69521, 82804, 12152 #### [facility] [address] [place] [address], [facility] (RBC) [Mass/Vol]33.7 g/gITkvidx66.0-35.0The [facility] HospitalComment on above:Order Comment: No: Do not add to previous drawPerformed By: #### 91664, 66134, 16257 #### [facility] [address] [place] [address], [facility] (RBC) [Entitic vol]85.1 fIJakeam05.0-98.0The [facility] HospitalComment on above:Order Comment: No: Do not add to previous drawPerformed By: #### 13627, 46767, 75041 #### [facility] [address] [place] [address], USANucleated RBC/100 WBC (Bld) [Ratio]0 %Normal0-0The [facility] HospitalComment on above:Order Comment: No: Do not add to previous drawPerformed By: #### 49391, 03141, 26008 #### [facility] [address] [place] [address], USAPLAT ETS772 10*3/sLBwkvje913-241Vpp [facility] HospitalComment on above:Order Comment: No: Do not add to previous draw Performed By: #### 88593, 42604, 41320 #### [facility] [address] [place] [address], [facility] HOSPITALRBC (Bld) [#/Vol]4.43 10*6/uLNormal3.80-5.00The [facility] HospitalComment on above:Order Comment: No: Do not add to previous drawPerformed By: #### 33857, 58960, 02819 #### [facility] [address] [place] [address], [facility] HOSPITALWBC (Bld) [#/Vol]10.34 10*3/uLNormal4.00-10.60The [facility] HospitalComment on above:Order Comment: No: Do not add to previous drawPerformed By: #### 55843, 45201, 90804 #### [facility] [address] [place] [address], [facility] HOSPITALCardiovascular Lab Reporton [id number] Lab ReportUnKettering Health [facility] Epi MR #: [id number] Department of Physician: Isaura Ching M.D. Division of Service Date: 11/15/2018 Cardiology Birthdate: 1950 Adult Cardiovascular Room #: 3AB [id number] [facility] [address] [address] Cardiovascular Laboratory Report FINAL IMPRESSIONS: 1. 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 This does not represent an acute coronary syndrome and the patient does not require dual antiplatelet therapy. 2. Aggressive cardiovascular risk factor modification. 3. Optimization of medical management; given plaque disease, aspirin, plfradcc-xi-ohsk intensity statin therapy, a beta heraclio. If left ventricular hypertrophy is conformed, would recommend addition of an angiotension concerting enzyme inhibitor or receptor hreaclio. 4. Further recommendations deferred to the inpatient [...] right internal jugular vein was obtained. A 6-Icelandic 11 cm sheath was inserted without difficulty. [...] to access the right radial artery. A 6-Icelandic Glidesheath was inserted without difficulty. Bilateral selective [...] Camilo M.D. Date Trans: 11/16/2018 09:01 Tressa/alisa DN_JN:[id number] VA / Crille HospitalLIVER BATTERYon 17-21-3381Zgcrauc [Mass/Vol]3.6 g/dLNormal3.5-5.7The [facility] HospitalComment on above:Order Comment: No: Do not add to previous draw Performed By: #### 73831, 35317, 85701 #### [facility] [address] [place] [address], USAALKALINE TUAPYZ66 IU/XXgxqhn35-671Isw [facility] HospitalComment on above:Order Comment: No: Do not add to previous draw Performed By: #### 90259, 41302, 43923 #### [facility] [address] [place] [address], USAALT [Catalytic activity/Vol]63 U/LHigh7-52The [facility] HospitalComment on above:Order Comment: No: Do not add to previous drawPerformed By: #### 31057, 74889, 30900 #### [facility] [address] [place] [address], USAAST [Catalytic activity/Vol]19 U/CUyqzxd82-35Rbc [facility] HospitalComment on above:Order Comment: No: Do not add to previous drawPerformed By: #### 09671, 03877, 47486 #### [facility] [address] [place] [address], USABilirubin [Mass/Vol]0.5 mg/dLNormal0.3-1.0The [facility] HospitalComment on above:Order Comment: No: Do not add to previous drawPerformed By: #### 98088, 14638, 36282 #### [facility] [address] [place] [address], USABilirubin.direct [Mass/Vol]0.1 mg/dLNormal0.0-0.2The [facility] HospitalComment on above:Order Comment: No: Do not add to previous drawPerformed By: #### 41124, 85019, 12985 #### [facility] [address] [place] [address], USAProtein [Mass/Vol]6.5 g/dLNormal6.0-8.3The [facility] HospitalComment on above:Order Comment: No: Do not add to previous drawPerformed By: #### 18650, 08080, 93628 #### [facility] [address] [place] [address], USAMAGNESIUM BLOODon 85-56-6028Mnpcpyexa [Mass/Vol]1.8 mg/dL Low1.9-2.7The [facility] HospitalComment on above:Order Comment: No: Do not add to previous drawPerformed By: #### 85478, 12572, 17125 #### [facility] [address] [place] [address], USAPHOSPHORUS BLOODon 26-74-7583Yiafcwfpi [Mass/Vol]3.1 mg/dL Normal2.5-5.0The [facility] HospitalComment on above:Order Comment: No: Do not add to previous drawPerformed By: #### 51142, 05673, 31482 #### [facility] [address] [place] [address], USABASIC METABOLIC PANELon 55-47-0871Sslstsc [Mass/Vol]9.0 mg/dLNormal8.6-10.3The [facility] HospitalComment on above:Order Comment: No: Do not add to previous drawPerformed By: #### 49147, 39998, 50011 #### [facility] [address] [place] [address], USAChloride [Moles/Vol]103 mmol/KTsuscj77-953Hij [facility] HospitalComment on above:Order Comment: No: Do not add to previous drawPerformed By: #### 55465, 50805, 96580 #### [facility] [address] [place] [address], USACO2 [Moles/Vol]25 mmol/IMlyqyg71-53Kty [facility] HospitalComment on above:Order Comment: No: Do not add to previous draw Performed By: #### 46992, 81472, 12126 #### [facility] [address] [place] [address], USACreatinine [Mass/Vol]0.65 mg/dLNormal0.60-1.20The [facility] HospitalComment on above:Order Comment: No: Do not add to previous drawPerformed By: #### 75202, 87851, 49540 #### [facility] [address] [place] [address], USAGFR/1.73 sq M predicted among blacks MDRD (S/P/Bld) [Vol rate/Area]mL/min/{1.73_m2}Normal>60The [facility] Comment on above:Order Comment: No: Do not add to previous drawPerformed By: #### 94286, 05714, 87509 #### [facility] [address] [place] [address], USAGFR/1.73 sq M predicted among non-blacks MDRD (S/P/Bld) [Vol rate/Area]mL/min/{1.73_m2}Normal>60The [facility] Comment on above:Order Comment: No: Do not add to previous drawPerformed By: #### 88190, 02489, 18000 #### [facility] [address] [place] [address], USAGlucose [Mass/Vol]192 mg/vPHyqo98-195Ayo [facility] HospitalComment on above:Order Comment: No: Do not add to previous drawPerformed By: #### 76211, 31919, 21684 #### [facility] [address] [place] [address], USAPotassium [Moles/Vol]3.0 mmol/LLow3.5-5.1The [facility] HospitalComment on above:Order Comment: No: Do not add to previous drawPerformed By: #### 36314, 95225, 05038 #### [facility] [address] [place] [address], USASodium [Moles/Vol]138 mmol/HBpstdt018-123Wit [facility] HospitalComment on above:Order Comment: No: Do not add to previous drawPerformed By: #### 86616, 99213, 05733 #### [facility] [address] [place] [address], USAUrea nitrogen [Mass/Vol]10 mg/dLNormal7-25The [facility] HospitalComment on above:Order Comment: No: Do not add to previous drawPerformed By: #### 07182, 25828, 97903 #### [facility] [address] [place] [address], USALIVER BATTERYon 56-56-5349Kpvyozf [Mass/Vol]3.3 g/dLLow 3.5-5.7The [facility] HospitalComment on above:Order Comment: No: Do not add to previous drawPerformed By: #### 13209, 64163, 02525 #### [facility] [address] [place] [address], USAALKALINE KWJREZ90 IU/NUzbbor46-677Tse [facility] HospitalComment on above:Order Comment: No: Do not add to previous draw Performed By: #### 15067, 30223, 88041 #### [facility] [address] [place] [address], USAALT [Catalytic activity/Vol]70 U/LHigh7-52The [facility] HospitalComment on above:Order Comment: No: Do not add to previous drawPerformed By: #### 50758, 96693, 45249 #### [facility] [address] [place] [address], USAAST [Catalytic activity/Vol]22 U/MPhptvw73-91Ahy [facility] HospitalComment on above:Order Comment: No: Do not add to previous drawPerformed By: #### 77920, 91841, 02319 #### [facility] [address] [place] [address], USABilirubin [Mass/Vol]0.4 mg/dLNormal0.3-1.0The [facility] HospitalComment on above:Order Comment: No: Do not add to previous drawPerformed By: #### 09697, 00613, 28283 #### [facility] [address] [place] [address], USABilirubin.direct [Mass/Vol]0.1 mg/dLNormal0.0-0.2The [facility] HospitalComment on above:Order Comment: No: Do not add to previous drawPerformed By: #### 59257, 54682, 23921 #### [facility] [address] [place] [address], USAProtein [Mass/Vol]6.2 g/dLNormal6.0-8.3The [facility] HospitalComment on above:Order Comment: No: Do not add to previous drawPerformed By: #### 88126, 98873, 32584 #### [facility] [address] [place] [address], USAUFH HEPARIN ASSAYon [id number] HEPARIN0.71 IU/mLHigh0.30-0.70The [facility] HospitalComment on above:Result Comment: Rivaroxaban and Apixaban will interfere with the anti Xa assay used to monitor UFH and LMWH.Performed By: #### 90659 #### [facility] [address] [place] [address], USABASIC METABOLIC PANELon 10-97-1137Fokytht [Mass/Vol]8.9 mg/dLNormal8.6-10.3The [facility] HospitalComment on above:Order Comment: No: Do not add to previous draw Criteria for reflexing a culture was not met. Please call the lab at 7668 within 24 hours of collection time if culture is neededPerformed By: #### 63026 #### [facility] [address] [place] [address], USAChloride [Moles/Vol]105 mmol/GAbbdhp67-559Ojk [facility] HospitalComment on above:Order Comment: No: Do not add to previous draw Criteria for reflexing a culture was not met. Please call the lab at 7668 within 24 hours of collection time if culture is neededPerformed By: #### 08290 #### [facility] [address] [place] [address], USACO2 [Moles/Vol]25 mmol/ORtbekl38-85Aec [facility] HospitalComment on above:Order Comment: No: Do not add to previous draw Criteria for reflexing a culture was not met. Please call the lab at 7668 within 24 hours of collection time if culture is neededPerformed By: #### 54355 #### [facility] [address] [place] [address], USACreatinine [Mass/Vol]0.64 mg/dLNormal0.60-1.20The [facility] HospitalComment on above:Order Comment: No: Do not add to previous draw Criteria for reflexing a culture was not met. Please call the lab at 7668 within 24 hours of collection time if culture is neededPerformed By: #### 32663 #### [facility] [address] [facility] [place] [address], USAGFR/1.73 sq M predicted among blacks MDRD (S/P/Bld) [Vol rate/Area]mL/min/{1.73_m2}Normal>60The [facility] Comment on above:Order Comment: No: Do not add to previous draw Criteria for reflexing a culture was not met. Please call the lab at 7668 within 24 hours of collection time if culture is neededPerformed By: #### 31183 #### [facility] [address] [place] [address], USAGFR/1.73 sq M predicted among non-blacks MDRD (S/P/Bld) [Vol rate/Area]mL/min/{1.73_m2}Normal>60The [facility] Comment on above:Order Comment: No: Do not add to previous draw Criteria for reflexing a culture was not met. Please call the lab at 7668 within 24 hours of collection time if culture is neededPerformed By: #### 57672 #### [facility] [address] [place] [address], USAGlucose [Mass/Vol]129 mg/zWKisd58-589Zbh [facility] HospitalComment on above:Order Comment: No: Do not add to previous draw Criteria for reflexing a culture was not met. Please call the lab at 7668 within 24 hours of collection time if culture is neededPerformed By: #### 59894 #### [facility] [address] [place] [address], USAPotassium [Moles/Vol]3.6 mmol/LNormal3.5-5.1The [facility] HospitalComment on above:Order Comment: No: Do not add to previous draw Criteria for reflexing a culture was not met. Please call the lab at 7668 within 24 hours of collection time if culture is neededPerformed By: #### 45485 #### [facility] [address] [place] [address], [facility] HOSPITALSodium [Moles/Vol]137 mmol/HBuyqqh746-753Lvj [facility] HospitalComment on above:Order Comment: No: Do not add to previous draw Criteria for reflexing a culture was not met. Please call the lab at 7668 within 24 hours of collection time if culture is neededPerformed By: #### 44342 #### [facility] [address] [place] [address], USAUrea nitrogen [Mass/Vol]11 mg/dLNormal7-25The [facility] HospitalComment on above:Order Comment: No: Do not add to previous draw Criteria for reflexing a culture was not met. Please call the lab at 7668 within 24 hours of collection time if culture is neededPerformed By: #### 21853 #### [facility] [address] [place] [address], [facility] HOSPITALCB W/DIFFon [id number] BASOPHILS0.0 10*3/uLNormal 0.0-0.2The [facility] HospitalComment on above:Order Comment: No: Do not add to previous draw Criteria for reflexing a culture was not met. Please call the lab at 7668 within 24 hours of collection time if culture is neededPerformed By: #### 82283 #### [facility] [address] [place] [address], [facility] HOSPITALABS IMM GRANS0.0 10*3/uLNormal0.0-0.2The [facility] HospitalComment on above:Order Comment: No: Do not add to previous draw Criteria for reflexing a culture was not met. Please call the lab at 7668 within 24 hours of collection time if culture is neededPerformed By: #### 59083 #### [facility] [address] [place] [address], USAABS NEUTROPHILS5.0 10*3/uLNormal1.6-7.6The [facility] HospitalComment on above:Order Comment: No: Do not add to previous draw Criteria for reflexing a culture was not met. Please call the lab at 7668 within 24 hours of collection time if culture is neededPerformed By: #### 41811 #### [facility] [address] [place] [address], USABasophils/100 WBC (Bld)0.1 %Normal0.0-1.0The [facility] HospitalComment on above:Order Comment: No: Do not add to previous draw Criteria for reflexing a culture was not met. Please call the lab at 7668 within 24 hours of collection time if culture is neededPerformed By: #### 71693 #### [facility] [address] [place] [address], USAEosinophils (Bld) [#/Vol]0.2 10*3/uLNormal0.0-0.5The [facility] HospitalComment on above:Order Comment: No: Do not add to previous draw Criteria for reflexing a culture was not met. Please call the lab at 7668 within 24 hours of collection time if culture is neededPerformed By: #### 50596 #### [facility] [address] [place] [address], USAEosinophils/100 WBC (Bld)1.8 %Normal0.0-6.0The [facility] HospitalComment on above:Order Comment: No: Do not add to previous draw Criteria for reflexing a culture was not met. Please call the lab at 7668 within 24 hours of collection time if culture is neededPerformed By: #### 53581 #### [facility] [address] [place] [address], USAErythrocyte distribution width (RBC) [Ratio]15.9 %High 11.5-15.0The [facility] HospitalComment on above:Order Comment: No: Do not add to previous draw Criteria for reflexing a culture was not met. Please call the lab at 7668 within 24 hours of collection time if culture is neededPerformed By: #### 56443 #### [facility] [address] [place] [address], USAHematocrit (Bld) [Volume fraction]36.8 %Elaahe94.0-45.0The [facility] HospitalComment on above:Order Comment: No: Do not add to previous draw Criteria for reflexing a culture was not met. Please call the lab at 7668 within 24 hours of collection time if culture is neededPerformed By: #### 42838 #### [facility] [address] [facility] [place] [address], USAHemoglobin (Bld) [Mass/Vol]12.1 g/bXDvpejs57.0-15.0The [facility] HospitalComment on above:Order Comment: No: Do not add to previous draw Criteria for reflexing a culture was not met. Please call the lab at 7668 within 24 hours of collection time if culture is neededPerformed By: #### [id number] #### [facility] [address] [facility] [place] [address], USAIMMATURE GRANS0.4 %Normal0.0-1.0The [facility] HospitalComment on above:Order Comment: No: Do not add to previous draw Criteria for reflexing a culture was not met. Please call the lab at [phone] within 24 hours of collection time if culture is neededPerformed By: #### [id number] #### [facility] [address] [place] [address], USALymphocytes (Bld) [#/Vol]4.7 10*3/uLHigh1.2-4.0The [facility] HospitalComment on above:Order Comment: No: Do not add to previous draw Criteria for reflexing a culture was not met. Please call the lab at 7668 within 24 hours of collection time if culture is neededPerformed By: #### [id number] #### [facility] [address] [place] [address], [facility] HOSPITALLymphocytes/100 WBC (Bld)45.2 %High20.0-45.0The [facility] HospitalComment on above:Order Comment: No: Do not add to previous draw Criteria for reflexing a culture was not met. Please call the lab at 7668 within 24 hours of collection time if culture is neededPerformed By: #### [id number] #### [facility] [address] [place] [address], [facility] (RBC) [Entitic mass]28.7 jsCrypvb02.0-33.0The [facility] HospitalComment on above:Order Comment: No: Do not add to previous draw Criteria for reflexing a culture was not met. Please call the lab at 7668 within 24 hours of collection time if culture is neededPerformed By: #### 40462 #### [facility] [address] [place] [address], [facility]OSPITALMCHC (RBC) [Mass/Vol]32.9 g/bHJoqdhh98.0-35.0The [facility] HospitalComment on above:Order Comment: No: Do not add to previous draw Criteria for reflexing a culture was not met. Please call the lab at 7668 within 24 hours of collection time if culture is neededPerformed By: #### 38026 #### [facility] [address] [facility]. [place] [id number], [facility] (RBC) [Entitic vol]87.2 sQXcdspf33.0-98.0The [facility] HospitalComment on above:Order Comment: No: Do not add to previous draw Criteria for reflexing a culture was not met. Please call the lab at 7668 within 24 hours of collection time if culture is neededPerformed By: #### 09051 #### [facility] [address] [place] [address], [facility] HOSPITALMonocytes (Bld) [#/Vol]0.5 10*3/uLNormal0.1-1.0The [facility] HospitalComment on above:Order Comment: No: Do not add to previous draw Criteria for reflexing a culture was not met. Please call the lab at 7668 within 24 hours of collection time if culture is neededPerformed By: #### 05856 #### [facility] [address] [place] [address], USAMONOS4.5 %Low5.0-12.0The [facility] HospitalComment on above:Order Comment: No: Do not add to previous draw Criteria for reflexing a culture was not met. Please call the lab at 7668 within 24 hours of collection time if culture is neededPerformed By: #### 00716 #### [facility] [address] [place] [address], USANeutrophils/100 WBC (Bld)48.0 %Omosox92.0-72.0The [facility] HospitalComment on above:Order Comment: No: Do not add to previous draw Criteria for reflexing a culture was not met. Please call the lab at 7668 within 24 hours of collection time if culture is neededPerformed By: #### [id number] #### [facility] [address] [place] [address], USANucleated RBC/100 WBC (Bld) [Ratio]0 %Normal0-0The [facility] HospitalComment on above:Order Comment: No: Do not add to previous draw Criteria for reflexing a culture was not met. Please call the lab at 7668 within 24 hours of collection time if culture is neededPerformed By: #### [id number] #### [facility] [address] [place] [address], USAPLAT PLY294 10*3/sGQqibih461-184Iga [facility] HospitalComment on above:Order Comment: No: Do not add to previous draw Criteria for reflexing a culture was not met. Please call the lab at 7668 within 24 hours of collection time if culture is neededPerformed By: #### [id number] #### [facility] [address] [place] [address], [facility] HOSPITALRBC (Bld) [#/Vol]4.22 10*6/uLNormal3.80-5.00The [facility] HospitalComment on above:Order Comment: No: Do not add to previous draw Criteria for reflexing a culture was not met. Please call the lab at 7668 within 24 hours of collection time if culture is neededPerformed By: #### [id number] #### [facility] [address] [place] [address], [facility] HOSPITALWBC (Bld) [#/Vol]10.38 10*3/uLNormal4.00-10.60The [facility] HospitalComment on above:Order Comment: No: Do not add to previous draw Criteria for reflexing a culture was not met. Please call the lab at 7668 within 24 hours of collection time if culture is neededPerformed By: #### [id number] #### [place] [address], [facility]OSPITALCHEST AND [facility] [id number] AND [facility] Department of Radiology [address] [place] [address] [id number] Patient Name: EPI DAILEY : 1950 Sex: F Age: Race: White Pt. Location: [id number] Patient Status: I Ordered Date: 11/14/2018 8:00:00 [...] findings. Electronically signed by:Jamey Hamilton. Transcribed by: [email or web address], User Resident: GAGAN RAYGOZA Electronically Signed by: JAMEY HAMILTON @ 11/15/2018 09:14 AM I personally read this/these film(s) with this residentProMedica Bay Park HospitalComment on above:Order Comment: No: Do not add to previous draw Criteria for reflexing a culture was not met. Please call the lab at 7668 within 24 hours of collection time if culture is neededLIPID PROFILEon [id number] [Mass/Vol]113 mg/tBDse750-632Lik [facility] HospitalComment on above:Order Comment: No: Do not [...] mg/dl and greater High RiskPerformed By: #### [id number] #### [facility] [address] [place] [address], USACholesterol in HDL [Mass/Vol]29 mg/zDIvimlz89-26Fji [facility] HospitalComment on above:Order Comment: No: Do not [...] Risk <40 mg/dL High RiskPerformed By: #### 26541 #### [facility] [address] [place] [address], USACholesterol in LDL [Mass/Vol]61 mg/dLNormal0-130The [facility] HospitalComment on above:Order Comment: No: Do not add to previous draw Criteria for reflexing a culture was not met. Please call the lab at 7668 within 24 hours of collection time if culture is neededResult Comment: LDL IS A CALCULATION LDL IS ONLY VALID IF THE TRIG IS LESS THAN 400.Performed By: #### 86452 #### [facility] [address] [place] [address], USACholesterol.total/Cholesterol in HDL [Mass ratio]3.9 {ratio}Normal0.0-4.5The [facility] HospitalComment on above: Order Comment: No: Do not add to previous draw Criteria for reflexing a culture was not met. Please call the lab at 7668 within 24 hours of collection time if culture is neededPerformed By: #### 85123 #### [facility] [address] [place] [address], USANON-HDL NBFURMPALQN38 mg/dLNormalThe [facility] HospitalComment on above:Order Comment: No: Do not add to previous draw Criteria for reflexing a culture was not met. Please call the lab at 7668 within 24 hours of collection time if culture is neededPerformed By: #### 70489 #### [facility] [address] [place] [address], USATriglyceride [Mass/Vol]113 mg/nGRngovi05-381Atl [facility] HospitalComment on above:Order Comment: No: Do not [...] mg/dl AND GREATER HIGH RISKPerformed By: #### 40940 #### [address] [place] [address], USAVLDL CHOL23 mg/dLNormal0-40The [facility] HospitalComment on above:Order Comment: No: Do not add to previous draw Criteria for reflexing a culture was not met. Please call the lab at 7668 within 24 hours of collection time if culture is neededPerformed By: #### 61159 #### [address] [place] [address], USAMAGNESIUM BLOODon [id number] [Mass/Vol]2.0 mg/dL Normal1.9-2.7The [facility] HospitalComment on above:Order Comment: No: Do not add to previous draw Criteria for reflexing a culture was not met. Please call the lab at 7668 within 24 hours of collection time if culture is neededPerformed By: #### 85186 #### [address] [place] [address], USAMRI LUMBAR SPINE W WO CONTRASTon [id number] LUMBAR SPINE W WO CONTRASTUnUniversity [facility] Department of Radiology [address] [place] [address] Patient Name: EPI DAILEY : 1950 Sex: F Age: Race: White Pt. Location: [address] [place] [address] Patient Status: I Ordered Date: 11/13/2018 7:45:00 [...] spine. Electronically signed by:Kunal Bloom. Transcribed by: [email or web address], User Resident: Electronically Signed by: KUNAL BLOOM @ 11/15/2018 02:54 PMNormalThe [facility] HospitalComment on above:Order Comment: No: Do not add to previous drawPROTHROMBIN TIMEon [id number] Coag (PPP) [Relative time] 1.04 {INR}Normal0.91-1.16The [facility] HospitalComment on above:Order Comment: No: Do not [...] OPTIMAL THERAPEUTIC RANGE. CHEST 1995;108:231S-246S.Performed By: #### 00519 #### [facility] [address] [place] [address], USAPT Coag (PPP) [Time]13.6 cKlozjd65.3-14.8The [facility] HospitalComment on above:Order Comment: No: Do not add to previous draw Criteria for reflexing a culture was not met. Please call the lab at 7668 within 24 hours of collection time if culture is neededResult Comment: ALL RESULTS MUST BE INTERPRETED WITH RESPECT TO BLOOD DRAWING ARTIFACT OR DILUTION ERROR OF ANTICOAGULANT AT THE TIME OF SAMPLING.Performed By: #### 91121 #### [facility] [address] [place] [address], USATROPONIN-Ion [id number] I.cardiac [Mass/Vol]1.03 ng/mLCritically high0.00-0.04The [facility] HospitalComment on above:Order Comment: No: Do not add to previous drawResult Comment: M-PREVIOUS CRITICAL RESULT REFERENCE RANGES: 0.00 - 0.04 ng/ml NORMAL 0.05 - 0.50 ng/ml INDETERMINATE > 0.50 ng/ml CONSISTENT WITH AN M.I.Performed By: #### 42878 #### [facility] [address] [place] [address], USAUFH HEPARIN ASSAYon [id number] HEPARIN0.21 IU/mLLow0.30-0.70The [facility] HospitalComment on above:Result Comment: Rivaroxaban and Apixaban will interfere with the anti Xa assay used to monitor UFH and LMWH.Performed By: #### 05315 #### [facility] [address] [place] [address], USAUNFRACTIONATED HEPARIN0.26 IU/mLLow0.30-0.70The [facility] HospitalComment on above:Result Comment: Rivaroxaban and Apixaban will interfere with the anti Xa assay used to monitor UFH and LMWH.Performed By: #### 14310 #### [facility] [address] [place] [address], USAUNFRACTIONATED HEPARIN0.21 IU/mLLow0.30-0.70The [facility] HospitalComment on above:Result Comment: Rivaroxaban and Apixaban will interfere with the anti Xa assay used to monitor UFH and LMWH.Performed By: #### 12949 #### [facility] [address] [place] [address], USAUNFRACTIONATED HEPARIN<0.10Critically low0.30-0.70The [facility] HospitalComment on above:Result Comment: Rivaroxaban and Apixaban will interfere with the anti Xa assay used to monitor UFH and LMWH. RESULTS CHECKED AND CALLED. ACCURATELY READ BACK BY WILIAM DOMINGO RN @0058Performed By: #### [id number] #### [facility] [address] [place] [address], USABASIC METABOLIC PANELon [id number] [Mass/Vol]9.2 mg/dLNormal8.6-10.3The [facility] HospitalComment on above:Order Comment: No: Do not add to previous drawPerformed By: #### 20245, 16765, 59412 #### [facility] [address] [place] [address], USAChloride [Moles/Vol]103 mmol/CBnfzwi89-515Oxh [facility] HospitalComment on above:Order Comment: No: Do not add to previous drawPerformed By: #### 29223, 93044, 48547 #### [facility] [address] [place] [address], USACO2 [Moles/Vol]22 mmol/DExvyxv28-75Jvy [facility] HospitalComment on above:Order Comment: No: Do not add to previous draw Performed By: #### 34439, 04571, 22483 #### [facility] [address] [place] [address], USACreatinine [Mass/Vol]0.74 mg/dLNormal0.60-1.20The [facility] HospitalComment on above:Order Comment: No: Do not add to previous drawPerformed By: #### 21429, 79180, 91940 #### [facility] [address] [place] [address], USAGFR/1.73 sq M predicted among blacks MDRD (S/P/Bld) [Vol rate/Area]mL/min/{1.73_m2}Normal>60The [facility] Comment on above:Order Comment: No: Do not add to previous drawPerformed By: #### 78463, 80571, 05860 #### [facility] [address] [place] [address], USAGFR/1.73 sq M predicted among non-blacks MDRD (S/P/Bld) [Vol rate/Area]mL/min/{1.73_m2}Normal>60The [facility] Comment on above:Order Comment: No: Do not add to previous drawPerformed By: #### 08507, 72467, 57300 #### [facility] [address] [place] [address], USAGlucose [Mass/Vol]116 mg/sPDjbi84-570Uro [facility] HospitalComment on above:Order Comment: No: Do not add to previous drawPerformed By: #### 45208, 91952, 94952 #### [facility] [address] [place] [address], USAPotassium [Moles/Vol]3.5 mmol/LNormal3.5-5.1The [facility] HospitalComment on above:Order Comment: No: Do not add to previous drawPerformed By: #### 28393, 13001, 52383 #### [facility] [address] [place] [address], USASodium [Moles/Vol]137 mmol/WUrrttt839-442Yfq [facility] HospitalComment on above:Order Comment: No: Do not add to previous drawPerformed By: #### 78235, 42108, 85820 #### [facility] [address] [place] [address], USAUrea nitrogen [Mass/Vol]14 mg/dLNormal7-25The [facility] HospitalComment on above:Order Comment: No: Do not add to previous drawPerformed By: #### 47868, 17597, 43085 #### [facility] [address] [place] [id number], USABNP (B-TYPE NATRIURETIC PEPTIDE)on 97-05-3400Winnwrqhlmp peptide B (Bld) [Mass/Vol]695 pg/mLHigh0-100The [facility] HospitalComment on above:Order Comment: Yes: Add to Previous draw if ableResult Comment: Given the appropriate clinical setting a BNP result of >100 pg/mL indicates congestive heart failure.Performed By: #### 89084, 11615 #### [facility] [address] [place] [address], USACBC W/DIFFon [id number] BASOPHILS0.0 10*3/uLNormal 0.0-0.2The [facility] HospitalComment on above:Performed By: #### 69036 #### [facility] [address] [facility] [place] [address], USAABS IMM GRANS0.1 10*3/uLNormal0.0-0.2The [facility] HospitalComment on above:Performed By: #### 17128 #### [facility] [address] [facility] [place] [address], USAABS NEUTROPHILS9.9 10*3/uLHigh1.6-7.6The [facility] HospitalComment on above:Performed By: #### 91663 #### [facility] [address] [facility] [place] [address], USABasophils/100 WBC (Bld)0.1 %Normal0.0-1.0The [facility] HospitalComment on above:Performed By: #### 69509 #### [facility] [address] [place] [address], USAEosinophils (Bld) [#/Vol]0.0 10*3/uLNormal0.0-0.5The [facility] HospitalComment on above:Performed By: #### 63613 #### [facility] [address] [place] [address], USAEosinophils/100 WBC (Bld)0.2 %Normal0.0-6.0The [facility] HospitalComment on above:Performed By: #### 17010 #### [facility] [address] [place] [address], USAErythrocyte distribution width (RBC) [Ratio]15.9 %High 11.5-15.0The [facility] HospitalComment on above:Performed By: #### 59007 #### [facility] [address] [place] [address], USAHematocrit (Bld) [Volume fraction]36.8 %Ramhke16.0-45.0The [facility] HospitalComment on above:Performed By: #### 76298 #### [facility] [address] [place] [address], USAHemoglobin (Bld) [Mass/Vol]12.4 g/sJQyarab18.0-15.0The [facility] HospitalComment on above:Performed By: #### 78153 #### [facility] [address] [place] [address], USAIMMATURE GRANS0.6 %Normal0.0-1.0The [facility] HospitalComment on above:Performed By: #### 74668 #### [facility] [address] [place] [address], USALymphocytes (Bld) [#/Vol]5.0 10*3/uLHigh1.2-4.0The [facility] HospitalComment on above:Performed By: #### 45871 #### [facility] [address] [place] [address], USALymphocytes/100 WBC (Bld)32.2 %Hdyegq70.0-45.0The [facility] HospitalComment on above:Performed By: #### 41103 #### [facility] [address] [place] [id number], [facility] (RBC) [Entitic mass]28.8 etFphprl70.0-33.0The [facility] HospitalComment on above:Performed By: #### 00863 #### [facility] [address] [place] [id number], [facility]ITALMCHC (RBC) [Mass/Vol]33.7 g/iUNkggjl08.0-35.0The [facility] HospitalComment on above:Performed By: #### 58365 #### [facility] [address] [address], [facility] HOSPITALMCV (RBC) [Entitic vol]85.6 jNEbefsk91.0-98.0The [facility] HospitalComment on above:Performed By: #### 76453 #### [facility] [address] [address], USAMonocytes (Bld) [#/Vol]0.5 10*3/uLNormal0.1-1.0The [facility] HospitalComment on above:Performed By: #### 88148 #### [facility] [address] [place] [id number], USAMONOS3.3 %Low5.0-12.0The [facility] HospitalComment on above:Performed By: #### 94794 #### [facility] [address] [address], USANeutrophils/100 WBC (Bld)63.6 %Ntopno09.0-72.0The [facility] HospitalComment on above:Performed By: #### 56833 #### [facility] [address] [place] [address], USANucleated RBC/100 WBC (Bld) [Ratio]0 %Normal0-0The [facility] HospitalComment on above:Performed By: #### 45224 #### [facility] [address] [place] [address], USAPLAT LMG650 10*3/gZHparrx357-480Zex [facility] HospitalComment on above:Performed By: #### 14965 #### [facility] [address] [place] [address], USARBC (Bld) [#/Vol]4.30 10*6/uLNormal3.80-5.00The [facility] HospitalComment on above:Performed By: #### 04710 #### [facility] [address] [place] [address], USAWBC (Bld) [#/Vol]15.51 10*3/uLHigh4.00-10.60The [facility] HospitalComment on above:Performed By: #### 83940 #### [facility] [address] [place] [address], USAHEMOGLOBIN A1Con 81-02-0856NiW0e (Bld) [Mass fraction]117 mg/uKNcbjem90-363Ans [facility] HospitalComment on above:Order Comment: Yes: Add to Previous draw if ablePerformed By: #### 18782, 48477 #### [facility] [address] [place] [address], AEGTzV9f (Bld) [Mass fraction]5.7 %Normal4.0-6.0The [facility] HospitalComment on above:Order Comment: Yes: Add to Previous draw if ablePerformed By: #### 52334, 21860 #### [facility] [address] [place] [address], USALIVER BATTERYon 01-37-7009Abfvkvd [Mass/Vol]3.7 g/dLNormal 3.5-5.7The [facility] HospitalComment on above:Order Comment: No: Do not add to previous drawPerformed By: #### 29591, 94742, 80889 #### [facility] [address] [place] [address], USAALKALINE OOONVB23 IU/CMipysh88-487Jen [facility] HospitalComment on above:Order Comment: No: Do not add to previous draw Performed By: #### 37595, 15162, 06978 #### [facility] [address] [place] [address], USAALT [Catalytic activity/Vol]156 U/LHigh7-52The [facility] HospitalComment on above:Order Comment: No: Do not add to previous drawPerformed By: #### 32634, 63181, 64866 #### [facility] [address] [place] [address], USAAST [Catalytic activity/Vol]62 U/YXsgm33-10Ubu [facility] HospitalComment on above:Order Comment: No: Do not add to previous drawPerformed By: #### 92804, 51147, 11376 #### [facility] [address] [place] [address], USABilirubin [Mass/Vol]0.5 mg/dLNormal0.3-1.0The [facility] HospitalComment on above:Order Comment: No: Do not add to previous drawPerformed By: #### 38719, 09765, 32179 #### [facility] [address] [place] [address], USABilirubin.direct [Mass/Vol]0.1 mg/dLNormal0.0-0.2The [facility] HospitalComment on above:Order Comment: No: Do not add to previous drawPerformed By: #### 32042, 20104, 47378 #### [facility] [address] [place] [address], USAProtein [Mass/Vol]6.8 g/dLNormal6.0-8.3The [facility] HospitalComment on above:Order Comment: No: Do not add to previous drawPerformed By: #### 51733, 85024, 25407 #### [facility] [address] [place] [address], USATROPONIN-Ion 86-18-8822Zvkozhsd I.cardiac [Mass/Vol]1.42 ng/mLCritically high0.00-0.04The [facility] HospitalComment on above:Order Comment: No: Do not add to previous drawResult Comment: M-PREVIOUS CRITICAL RESULT REFERENCE RANGES: 0.00 - 0.04 ng/ml NORMAL 0.05 - 0.50 ng/ml INDETERMINATE > 0.50 ng/ml CONSISTENT WITH AN M.I.Performed By: #### 90039 #### [facility] [address] [facility] [place] [address], USATroponin I.cardiac [Mass/Vol]1.12 ng/mLCritically high 0.00-0.04The [facility] HospitalComment on above:Order Comment: No: Do not add to previous drawResult Comment: M-CRITICAL RESULT(S) REVIEWED, CALLED TO AND READ BACK BY MONICA HERNANDEZ RN @ 2000 ON 11-13-18 REFERENCE RANGES: 0.00 - 0.04 ng/ml NORMAL 0.05 - 0.50 ng/ml INDETERMINATE > 0.50 ng/ml CONSISTENT WITH AN M.I.Performed By: #### 40166, 14062, 52682 #### [facility] [address] [facility] [place] [address], USAURINALYSIS REFLEXon [id number] (U)CLEARNormal CLEARThe [facility] HospitalComment on above:Order Comment: No: Do not add to previous draw Criteria for reflexing a culture was not met. Please call the lab at 7668 within 24 hours of collection time if culture is neededPerformed By: #### 30411 #### [facility] [address] [place] [address], USABilirubin [Mass/Vol]NegativeNormalNEGATIVEThe [facility] HospitalComment on above:Order Comment: No: Do not add to previous draw Criteria for reflexing a culture was not met. Please call the lab at 7668 within 24 hours of collection time if culture is neededPerformed By: #### 01023 #### [facility] [address] [place] [address], USABLOODNegativeNormalNEGATIVEThe [facility] HospitalComment on above:Order Comment: No: Do not add to previous draw Criteria for reflexing a culture was not met. Please call the lab at 7668 within 24 hours of collection time if culture is neededPerformed By: #### 58680 #### [facility] [address] [place] [address], USAColor (U)YELLOWAbnormalYELLOWThe [facility] HospitalComment on above:Order Comment: No: Do not add to previous draw Criteria for reflexing a culture was not met. Please call the lab at [phone] within 24 hours of collection time if culture is neededPerformed By: #### [id number] #### [facility] [address] [place] [address], USAGlucose [Mass/Vol]NegativeNormalNEGATIVEThe [facility] Health Allen HospitalComment on above:Order Comment: No: Do not add to previous draw Criteria for reflexing a culture was not met. Please call the lab at [phone] within 24 hours of collection time if culture is neededPerformed By: #### [id number] #### [facility] [address] [place] [address], USAKETONENegativeNormalNEGATIVEThe [facility] Allen HospitalComment on above:Order Comment: No: Do not add to previous draw Criteria for reflexing a culture was not met. Please call the lab at [phone] within 24 hours of collection time if culture is neededPerformed By: #### [id number] #### [facility] [address] [facility] [place] [place] [id number], USALEUK ESTERNegativeNormalNEGATIVEThe [facility] Allen HospitalComment on above:Order Comment: No: Do not add to previous draw Criteria for reflexing a culture was not met. Please call the lab at 7668 within 24 hours of collection time if culture is neededPerformed By: #### [id number] #### [facility] [address] [facility]. [place] [id number], USAMICRO NOT DONEnegative chemical reactions unless requested in original orderNormalThe [facility] Allen HospitalComment on above: Order Comment: No: Do not add to previous draw Criteria for reflexing a culture was not met. Please call the lab at 7668 within 24 hours of collection time if culture is neededPerformed By: #### [id number] #### [facility] [address] [place] [address], MIMBR[facility] MEMORIAL HOSPITALNitrite Ql (U)NegativeNormalNEGATIVEThe [facility] Allen HospitalComment on above:Order Comment: No: Do not add to previous draw Criteria for reflexing a culture was not met. Please call the lab at 7668 within 24 hours of collection time if culture is neededPerformed By: #### [id number] #### [facility] [address] [place] [address], USApH (Bld)6.3Jkwvkg2.0-8.0The [facility] Allen HospitalComment on above:Order Comment: No: Do not add to previous draw Criteria for reflexing a culture was not met. Please call the lab at 7668 within 24 hours of collection time if culture is neededPerformed By: #### [id number] #### [facility] [address] [place] [address], USAProtein (U) [Mass/Vol]NegativeNormalNEGATIVEThe [facility] HospitalComment on above:Order Comment: No: Do not add to previous draw Criteria for reflexing a culture was not met. Please call the lab at 7668 within 24 hours of collection time if culture is neededPerformed By: #### [id number] #### [facility] [address] [place] [address], USASPEC GRAV1.437Rnu4.015-1.020The [facility] Allen HospitalComment on above:Order Comment: No: Do not add to previous draw Criteria for reflexing a culture was not met. Please call the lab at 7668 within 24 hours of collection time if culture is neededPerformed By: #### [id number] #### [facility] [address] [place] [address], [facility] Vital Signs Date TimeVital SignValuePerforming FozwzpcnnCpnodddh38-18-3693 12:58-0400Body .6 [degF]Nickie Feliciano COUNTY JUDGE Work Phone: [facility] HospitalWavqbmlhvj24-38-4219 12:58-0400Body sylilb21.3 kg Nickie Feliciano COUNTY JUDGE Work Phone: [facility] HospitalArvngkufeu17-85-0736 12:58-0400Diastolic blood wppxomoe92 mm[Hg]Nickie Feliciano COUNTY JUDGE Work Phone: [facility] HospitalKwgiqsarcr79-32-8048 12:58-0400Heart rate82 /min Nickie Feliciano COUNTY JUDGE Work Phone: [facility] HospitalTvwdxydtzx32-85-1257 12:58-4693XiH3% (BldA) [Mass fraction]96 %Nickie Feliciano COUNTY JUDGE Work Phone: [facility] HospitalQeghomqzle48-40-1299 12:58-0400Systolic blood tbtvvgly168 mm[Hg]Nickie Feliciano COUNTY JUDGE Work Phone: [facility] HospitalHvyesiqvjw53-41-0664 14:44-0400Body xfarmo191.56 cmBenjamin Ball DO Work Phone: [facility]09-02-2025 14:44-0400 Body mass index (BMI) [Ratio]27.3 kg/d9Mwwnqjre Ball DO Work Phone: [facility]09-02-2025 14:44-0400 Body .12 kgBenjamin Ball DO Work Phone: 1(486)036-[address] [place], [place] 2406709-02-2025 14:44-0400 Diastolic blood slrgcomm34 mm[Hg]Al Ball DO Work Phone: 1(642)880-[address] [place], [place] 2406709-02-2025 14:44-0400 Heart rate82 /minBenjamin Ball DO Work Phone: 1(269)[facility] [place], [place] 2406709-02-2025 14:44-0400 Respiratory rate12 /minBenjamin Ball DO Work Phone: 1(277)092-[address] [place], [place] 2406709-02-2025 14:44-0400 Systolic blood vynhsiwk094 mm[Hg]Al Ball DO Work Phone: 1(934)[address] [place], [place] 6654907-01-2025 15:03-0400 Body rslduz180.56 cmBenjamin Ball DO Work Phone: 1(972)[address] [place], [place] 6654907-01-2025 15:03-0400 Body mass index (BMI) [Ratio]27.5 kg/m8Yzudnwvm Ball DO Work Phone: 1(934)[address] [place], [place] 6654907-01-2025 15:03-0400 Body jipbux39.68 kgBenjamin Ball DO Work Phone: 1(041)[address] [place], [place] 6654907-01-2025 15:03-0400 Diastolic blood yqcwaxmy04 mm[Hg]Al Ball DO Work Phone: 1(599)[address] [place], [place] 6654907-01-2025 15:03-0400 Heart rate76 /minBenjamin Ball DO Work Phone: 1(074)091-[address] [place], [place] 2406707-01-2025 15:03-0400 Respiratory rate12 /minBenjamin Ball DO Work Phone: 1(194)[address] [place], [place] 6654907-01-2025 15:03-0400 Systolic blood lculdvhv575 mm[Hg]Al Ball DO Work Phone: 1(996)[address] [place], [place] 6654905-09-2025 09:43-0400 Body ybfzlw927.56 cmBenjamin Ball DO Work Phone: [facility]05-09-2025 09:43-0400 Body mass index (BMI) [Ratio]27.4 kg/s4Xwchwwgl Ball DO Work Phone: [facility]05-09-2025 09:43-0400 Body .57 kgBenjamin Ball DO Work Phone: [facility]05-09-2025 09:43-0400 Diastolic blood zgpugzsi41 mm[Hg]Al Ball DO Work Phone: [facility]05-09-2025 09:43-0400 Heart rate85 /minBenjamin Ball DO Work Phone: 1([phone])[phone]05-09-2025 09:43-0400 Respiratory rate12 /minBenjamin Ball DO Work Phone: 1(957)923-62[facility]05-09-2025 09:43-0400 Systolic blood agpolney706 mm[Hg]Al Ball DO Work Phone: [facility]02-07-2025 11:43-0500 Body xhgqmo626.56 cmMercy Health [facility] Hospital02-07-2025 11:43-0500Body mass index (BMI) [Ratio]27.3 kg/u4KyeqyekshMercy Health Tiffin Hospital02-07-2025 11:43-0500Body uvuzog78.29 kgMercy Health [facility] Hospital02-07-2025 11:43-0500Diastolic blood svdwmeib64 mm[Hg][facility] 04-29-2024 11:43-0500Heart rate92 /[facility] 04-29-2024 11:43-0500Respiratory rate12 /[facility] 04-29-2024 11:43-0500Systolic blood tmckxyxz229 mm[Hg][facility]12-23-2024 11:34-0500Body .56 cmMer[facility] Health [facility] Hospital12-23-2024 11:34-0500Body mass index (BMI) [Ratio]27.6 kg/m2IxhtmqslkMercy Health Tiffin Hospital12-23-2024 11:34-0500Body muokxj55.02 [facility]12-23-2024 11:34-0500Diastolic blood wabcdlnl03 mm[Hg] [facility]12-23-2024 11:34-0500Heart rate83 /[facility]12-23-2024 11:34-0500Respiratory rate12 /[facility]12-23-2024 11:34-0500Systolic blood mm[Hg] [facility]02-19-2024 13:30-0500Body .56 cm [facility]02-19-2024 13:30-0500Body mass index (BMI) [Ratio]27.6 kg/p7WjctwkvkmMercy Health [facility] Hospital02-19-2024 13:30-0500Body oyoqph53.02 [facility]02-19-2024 13:30-0500Diastolic blood fpwaazwy87 mm[Hg][facility]02-19-2024 13:30-0500 Heart rate84 /[facility]02-19-2024 13:30-1386NfW3% (BldA) [Mass fraction]97 %[facility]02-19-2024 13:30-0500 Systolic blood uunqyzrp045 mm[Hg][facility]12-08-2023 11:00-0500Body .56 cmBenjamin Ball Other [facility]12-08-2023 11:00-0500 Body mass index (BMI) [Ratio]26.43 kg/c7Xrxbtxnc Ball Other [employer] Other 637679-32-8065 11:00-0500Body wnepax99.85 kgBenjamin Ball Other [facility]12-08-2023 11:00-0500 Diastolic blood nhrbvloz22 mm[Hg]Al Ball Other [facility]12-08-2023 11:00-0500 Respiratory rate18 /minBenjamin Ball Other [facility] [employer] Other 212720-08-2644 11:00-0500Systolic blood jnsotcls493 mm[Hg] Al Soto Other [facility] Encounters Encounter DateEncounter TypeCare ProviderFacilityStart: 12-26-2024 End: 67-57-3573Xvondsgmi encounterLinrosa Feliciano COUNTY JUDGE Work Phone: no [facility] CareStart: 12-26-2024 End: 84-74-5383goxmxeoiwuFASQWPK R LACONISNot AvailableStart: 12-26-2024 End: 30-95-0263Vxbedv outpatient new 45 minutesNickie Feliciano COUNTY JUDGE Work Phone: noms [facility] Urgent CareComment on above:Acute bronchitis, unspecified organism (Primary Dx); Acute coughStart: 11-22-2024 End: 34-39-0291xopltorompOkjvtuju Charles DO Work Phone: [facility] Work Phone: Start: 11-22-2024 End: 98-89-2385Hpygbre encounter procedureAl Soto DO-[facility] Work Phone: Start: 56-70-2229Rup-patient / Non-visitAl Soto DO-[facility] Work Phone: Start: 41-46-2333Qqy-patient / Azt-wjeuiFrcj-Wags Chang MD-[facility] Work Phone: Start: 09-22-2024 End: 51-71-4655cqbgrkwtwaWNNTWK J CROAKMercy Mammoth Hospitaltart: 09-22-2024 End: 60-93-5190Uqbpykduml hospital visit by physicianAl Soto DO Work Phone: stvZ WI LAB DOCTORComment on above:Vaginal itching Start: 09-20-2024 End: 39-00-9720iztedqxfflKnptapfk Ball DO Work Phone: [facility] Work Phone: Start: 09-20-2024 End: 89-69-8768Bbpxkne encounter procedureBencandy Soto DO-[facility] Work Phone: Start: 07-29-2024 End: 30-93-9859Favgaha encounter procedureBencandy Soto DO-[facility] Work Phone: Start: 04-29-2024 End: 02-67-4512sxpfxkvogmKuwzhqlvvC[facility] Clinic [facility] Work Phone: Start: 04-29-2024 End: 83-93-7575Xxqwlue encounter procedureFirelands Physician Group-[facility] Work Phone: Start: 41-25-8351Too-patient / Non-visitFirwilloughbys Physician Group-[facility] Work Phone: Start: 20-13-1832Skh-patient / Non-visitFirelands Physician Group-[facility] Work Phone: Start: 03-14-2024 End: 78-04-2428Cwrbfyj encounter procedureFirwilloughbys Physician Group-[facility] Work Phone: Start: 79-04-6619Cwzzcva encounter procedureHolmes County Joel Pomerene Memorial Hospitaltart: 55-11-0913Xwb-patient / Non-visitFirelands Physician Group-[facility] Work Phone: Start: 83-79-0380Zin-patient / Non-visitFirelands Physician Group-[facility] Work Phone: start: 05-11-2023 End: 25-72-0568xyfzihfwceWiyjbhhmwC[facility] Clinic [facility] Work Phone: Start: 05-11-2023 End: 49-15-8312Hkettnj encounter procedureFirwilloughbys Physician Group-[facility] Work Phone: Start: 02-27-2023 End: 35-60-0657vksqlbqqweWxvugvoz Ball Other [employer] Other Start: 64-98-9205Tvxvmwi encounter procedureAl Soto Medical ClinicStart: 02-27-2023 End: 52-30-9393Yjljkpw encounter procedureFirelands Physician Group-[facility] Work Phone: Start: 02-19-2023 End: 66-31-5289etqtlyqzdvQjpgebpx Ball Other [employer] Other Start: 07-04-9255Emoqlmzoz encounterAl Soto Medical ClinicStart: 12-29-2022 End: 84-57-3365mfehzpkvlvDltxvzvm Ball Other [employer] Other Start: 03-84-2261Xifskum evaluation of patient and reportBereji Soto Medical ClinicStart: 06-05-2022 End: 09-83-9951ijkwpsfgmuIV NONE LISTED REQUESTFacility:C0Pisxi: 05-16-2022 End: 37-65-7916oquodgqomiBJ AL BALLFacility:B2Itbya: 98-23-6281Xajvc health examinationAl Soto Other [employer] Other Start: 02-24-2022 End: 30-91-5188vhximxwqimMA AL BALLFacility:Q4Gzxsx: 08-21-2021 End: 18-92-9029nobegskcrdNA AL BALLFacility:H1 Procedures DateProcedureProcedure DetailPerforming ClinicianStart: 94-02-9375Xtkkaluprg exam chest 2 Najma Feliciano COUNTY JUDGE Work Phone: Start: 10-11-2020H/O: hysterectomyRALH, BSO, A/P repair, Lynx sling, Cysto 10/11/20Al Soto DO Work Phone: Start: 45-45-2926Mnbxrivcg mammographyBereji Soto Other Start: 03-95-0891Yzlkmnh examination of patient Al Soto Other Start: 67-83-7199Ftcnrzrqn for malignant neoplasm of colonAl Soto Other Start: 08-80-5835Foeqwyhkk for osteoporosisAl Soto Other Depression screeningAl Soto Other Screening for malignant neoplasm of breastAl Soto Other Plan of Treatment DateCare ActivityDetailAuthorStart: 89-07-0575RVtE/Tdap/Td vaccine (2 - Tdap) DTaP/Tdap/Td vaccine (2 - Tdap)[facility]art: 2026 Respiratory Syncytial Virus (RSV) or age 60 yrs+ (1 - 1-dose 75+ series)Respiratory Syncytial Virus (RSV) or age 60 yrs+ (1 - 1-dose 75+ series)Bon [facility] HospitalStart: 69-94-6106Nolznxavf vaccinationInfluenza Vaccine (#1)[facility] HealthcareStart: 94-76-3559Qugbqfspy vaccinationFlu vaccine (#1)[facility]: 63-53-3321Qbuogu Wellness Visit (Medicare) Annual Wellness Visit (Medicare)[facility]: 54-67-7684BGGNT- 19 Vaccine ( season)COVID-19 Vaccine ( season)Bon [facility]: 00-08-0789Qsrtlvdxt for osteoporosisDEXA (modify frequency per FRAX score)Bon [facility]: 46-19-7713Ujazqdgef for malignant neoplasm of colonBon [facility]: 20-38-8912Yzrdcthia for malignant neoplasm of breastBon [facility] Centerart: 19-75-3776Hhanuukxb C screeningHepatitis C screenBon [facility]: 97-70-8466Wwiyktkxso ScreenDepression ScreenBon [facility] HospitalStart: 71-97-7334Mfcyv panel LipidsMountain [facility] Regional Medical Center: 60-59-4863Kdyngfisw for malignant neoplasm of colonNOTN Healthcare Breast - bilateral ScreeningMer[facility] Health [facility] End: 02-01-9131Erezjxxjk DNA ProbeLewisgale Hospital MontgomeryComment on above:1 Occurrences starting 09/22/2024 until 09/22/2024[facility] Immunizations Immunization DateImmunizationNotesCare DgcaikwgZiqqdtmj12-63-9917dyfsfmaqn virus vaccine, unspecified formulationNickie Feliciano COUNTY JUDGE Work Phone: [facility] HospitalVdfelhcuis26-65-7199crzviyitr virus vaccine, unspecified formulationMercy Health Tiffin Hospital10-09-2023influenza, high dose seasonal, preservative-freeBenjamin Ball Other [employer] Other 10860069-67-3255tdplulhip virus vaccine, split virus (incl. purified surface antigen)Al Soto Other [employer] Other 10-527343-90-6471jaaycmcih virus vaccine, unspecified formulationMercy Health [facility]iff[facility] Hospital03-08-2021COVID-19, [facility], Primary or Immunocompromised, (age 12y+), IM, 100 mcg/0.5mLBenjamin Ball DO Work Phone: bon [facility] HospitalAelohw85-04-6258YCLEX-78, [facility] border, Primary or Immunocompromised, (age 12y+), IM, 100 mcg/0.5mLBenjamin Ball DO Work Phone: bon [facility] HospitalTkgwcm79-29-7015wlhzijzibqkm polysaccharide vaccine, 23 valentBenjamin Ball Other [facility]10-17-2018influenza virus vaccine, split virus (incl. purified surface antigen)Al Soto Other [employer] Other 10103565-96-0155gcsxkkezq virus vaccine, unspecified formulationMercy Health [facility]iff[facility] Hospital04-09-2018diphtheria, tetanus toxoids and acellular pertussis vaccine, unspecified formulationBedignacandy Soto Other [facility]04-09-2018 pneumococcal conjugate vaccine, 13 valentBencandy Ball Other [facility] Payers DatePayer CategoryPayerPolicy [id number] (Managed Care)[employer] [id number] [id number] 2..[id number]. [id number] 2..[id number] 2..[id number] 2..[id number] [id number] 2..[id number]-paySelf Pay [id number] 2..[id number] Social History DateTypeDetailFacilityUnknown if ever smokedVan [employer] Other Start: 33-99-9878Snp Assigned At [facility] [employer] Other Start: 05-11-2023 End: 80-96-6630Qizybmo smoking status NHISNever smoked tobacco (finding) [facility] Hospitaltart: 70-67-4985Uxc Assigned At [facility] HospitalFeLake County [facility] Hospital - Westtart: 05-04-2012 End: 88-26-2658OyeNprnlg (finding)[facility] Hospitaltart: 85-14-5481Ardpkqr use and exposureSmokeless tobacco non-userBon [facility] CenterCloudkick [facility] HospitalEZ-Apps [facility] HospitalStart: 12-26-7655Yzqygpyat beverage intakeCurrent drinker of alcohol (finding)[facility] SystemCloudkick [facility] HospitalEZ-Apps [facility] HospitalStart: 81-39-0414Fxxuhjs of Social functionBon [facility] CenterCloudkick [facility] HospitalEZ-Apps [facility] HospitalStart: 17-00-9132Yofrgra CommentsocialWellmont Health SystemCloudkick [facility] HospitalEZ-Apps [facility] HospitalStart: 08-77-9154Avd assigned at birthNot on fileWellmont Health SystemFlagr Tobacco smoking status NHISTobacco smoking consumption unknownNOMS Healthcare Medical Equipment Procedure CodeEquipment CodeEquipment Original TextEquipment IdentifierDates Sling Sandstone Splitter Polypr Suprpub Midurethral Halo Ndl Guid Tb [id number]: 09-74-9013Khgudhd on above:Description: [id number] Clinical Notes 02-19-2023 to 12-26-2024 Note Date & VxwuDzgoAostayni85-89-6549 Telephone encounter Note* Telephone Encounter - Nickie Feliciano NP - 12/26/2024 2:26 PM EDT Final chest xray neg for acute findings. Immediate eval if new, worsening sx otherwise follow up with PCP if sx not resolved with course of atb, sooner if not improving over next 3-4 days. [facility] HospitalVaadpnumhd55-43-5427 Miscellaneous Notes* Telephone Encounter - Nickie Feliciano NP - 12/26/2024 2:26 PM EDT Final chest xray neg for acute findings. Immediate eval if new, worsening sx otherwise follow up with PCP if sx not resolved with course of atb, sooner if not improving over next 3-4 days. documented in this encounterSelect Specialty HospitalFjovuwsmyf46-29-5880 History of Present illness Narrative* Nickie Feliciano NP - 12/26/2024 12:55 PM EDT Images from the original note were not included. [address] , [address] [facility], [address] P: [phone] F: [phone] HPI Historian of HPI: patient Epi Dailey [...] 8.5 g; Refill: 0 documented in this encounterSelect Specialty HospitalWefblzpjau77-06-2753 Evaluation note* Diagnosis Onset Date Resolution Status Admit Date Cervical spondylosis with radiculopathy acuteJuly 2024 2:52pmHx of fusion of cervical spineacuteJuly 2024 2:52pmCervical spondylosis with radiculopathyacuteSept2024 2:25pmHx of fusion of cervical spineacuteSept2024 2:25pmHypercalcemiaacute Mere 2024 2:25pm [facility] Work Phone: 1(434) 722-228605-09-2025 Evaluation note* Diagnosis Onset Date Resolution Status Admit Date Cervical spondylosis acuteMay 2024 9:32amRadicular pain in right armacuteMay 2024 9:32am Neck painnoneactiveMay 2024 9:32am [facility] Work Phone: 1(690) 596-844112-23-2024 Evaluation note* Diagnosis Onset Date Resolution Status Admit Date Essential (primary) hypertension acuteDecember 2023 11:25amHypercholesterolemiaacuteDecember 2023 11:25amHypothyroidacuteDecember 2023 11:25amMedicare annual wellness visit, subsequentacuteDeceer 2023 11:25amOverweightacuteDecember 2023 11:25amScreening mammogram for breast canceracuteMarch 14, 2024 11:25amColitisacuteFebruary 2024 11:25amHematocheziaacuteFebruary 2024 11:25am [facility] Work Phone: 1(403) 356-559412-08-2023 Evaluation note* Encounter Date Diagnosis Assessment Notes [...] crm. Healthy diet and exercise. WHIT dawson [employer] Other 11-30-2023 Evaluation note* Encounter Date Diagnosis Assessment Notes Treatment Notes Treatment Clinical Notes Jan, Primary hypertension (ICD-10 - I 10) Jan,Hypercholesteremia (ICD-10 - E78.00) Jan,Other specified hypothyroidism (ICD-10 - E03.8) Jan,utoimmune thyroiditis (ICD-10 - E06.3) Jan,Vitamin D deficiency (ICD-10 - E55.9) Jan,High risk medication use (ICD-10 - Z79.899) [employer] Other Evaluation noteNo InformationNort [employer] Other Evaluation note* Diagnosis Onset Date Resolution Status Bacterial conjunctivitis of right eye acute [facility] Work Phone: Evaluation note* Diagnosis Vaginal itching Pruritus of genital organs documented in this encounter [facility] MontgomeryEvaluation note* Diagnosis Acute bronchitis, unspecified organism- Primary Acute cough documented in this encounter NOMS HealthcareHistory general Narrative - Reported* Type Description Date Medical History hypertension Medical HistoryhypercholesterolemiaSurgical HistoryProblem Title : ANTERIOR CERVICAL DISCECTOMY AND FUSION (ACDF) (65607), Problem Status : Active,Surgical HistoryProblem Title : past surgical history reviewed, Problem Description : past surgical history reviewed, Problem Comment : reviewed - no changes required, Problem Status : Inactive,Surgical HistoryProblem Title : Spinal Fusion - Neck, Problem Status : Active, [employer] Other History general Narrative - Reported* Type Description Date Medical History hypertension Medical HistoryhypercholesterolemiaSurgical Historyneck surgeryHospitalization Historysee surgical history [employer] Other Reason for referral (narrative)No reason for referral information availableP[facility] Hospital Work Phone: Summary Purpose Family History [...] 3:44 PM Hospital Course Note MR#: [id number] [facility] Pt. Name: Epi Dailey Admitted: 11/13/2018 Discharged: 11/16/2018 Date of : 1950 Physician: Ryan Rehman MD DISCHARGE SUMMARY DIAGNOSES AT ADMISSION: 1. Mxq-EO-ougturhrt myocardial infarction. 2. Acute congestive heart failure exacerbation. 3. Oropharyngeal candidiasis. DIAGNOSES AT DISCHARGE: 1. Grv-AE-uwfghxbiq myocardial infarction. 2. Acute diastolic congestive heart failure exacerbation, resolved. 3. Oropharyngeal candidiasis, resolved. 4. Questionable pneumonia treated. 5. Hypertension controlled. 6. Hyperlipidemia. 7. Abnormal LFTs, resolved. HOSPITAL COURSE: This is a 68-year-old female, who was recently treated with Bactrim for her urinary tract infection and was also started on antibiotics and steroids for possible pneumonia, was transferred from the [facility] for worsening shortness of breath along with [...] 11:25am [facility] 11:25am Colitis April 29, 2024 1 [...] and content) DATE CREATED AUTHOR 12/31/2018 [facility] DATE CREATED AUTHOR AUTHOR'S ORGANIZ ATION 03/30/2020 [facility] DATE CREATED AUTHOR AUTHOR'S ORGANIZ ATION 06/06/2022 [facility] DATE CREATED AUTHOR AUTHOR'S ORGANIZ ATION 09/25/2024 [facility] DATE CREATED AUTHOR AUTHOR'S ORGANIZ ATION 01/01/2025 [facility] EPIC REASON FOR VISIT (unrecogniz ed section and content) [facility] Care Teams (unrecognized sec tion [...] End: May 11, 2023Maria Guadalupe Youssef APRN COUNTY JUDGE-CAttending ProviderActive Start: May 11, 2023 End: May 11, 2023Team MemberRelationshipSpecialtyStart DateEnd Date Al Soto DO [address] [place] [address] PCP - GeneralInternal [id number]/4/24 Team Status: Active Member Role Status Dates [...] DateEnd Date Al Soto DO [address] [place] [id number] PCP - GeneralInternal Srznzvdk45/6/25Team MemberRelationshipSpecialtyStart Date End Date CharlesAl [address] [place] [id number] PCP - GeneralInternal Sszezirl24/6/25 Goals (unrecognized section and content) Goals may [...] BE BASED ON THE PRIMARY CLINICAL RECORDS. [facility] and [facility]. provides no warranty or guarantee of the accuracy or completeness of information in this document.
== END 2025-03-01 09:23 | disposition home or self-care (01) ==
LOC: US 09:22
PROVIDERS: PCP Internal Medicine; Visit Provider Internal Medicine
DX: R74.01 Elevation of levels of liver transaminase levels (principal); K76.0 Fatty (change of) liver, not elsewhere classified
CPT/HCPCS: 76705

== ENCOUNTER 2025-03-08 10:17 | Outpatient (OUT) | payer MEDICARE, SELFPAY ==
--- OUTSIDE RECORDS SUMMARY | 2025-03-08 10:20 | XMS_ITS | Clinical Summary ---
Author Organization [facility] Address [address] [place] [address] Phone Care Team Providers Care Hand Etcher Name Role Phone Unavailable Primary Care Provider Unavailabl e Social History Tobacco UseTypesPacks/DayYears UsedDateSmoking Tobacco: Never Assessed CommentsUnknownSex and Gender InformationValueDate RecordedSex Assigned at Not on fileLegal VegFohcsb50/26/2022 7:42 PM ESTGender IdentityNot on fileSexual OrientationNot on file Plan of Treatment Not on file
[2025-03-08 10:43] LABS: Hematocrit 42.8 % (36.0-48.0); Hemoglobin 14.2 g/dL (12.0-16.0); Immature Granulocytes Abs Auto 0.00 10^3/uL (0.00-0.03); Immature Granulocytes Pct Auto 0.0 % (0.0-0.5); Lymphocytes Absolute Auto 3.3 10^3/uL (1.2-3.8); Mean Corpuscular HGB Conc 33.2 g/dL (29.9-35.2); Mean Corpuscular Hemoglobin 29.3 pg (26.7-34.0); Mean Corpuscular Volume 88.4 fL (81.0-99.0); Platelet Count 215 10^3/uL (150-450); Red Blood Count 4.84 10^6/uL (4.20-5.40); White Blood Count 5.6 10^3/uL (4.0-11.0)
[2025-03-08 11:39] LABS: Alanine Aminotransferase 73 U/L (14-59); Albumin Globulin Ratio 1.0; Albumin Level 3.9 g/dL (3.4-5.0); Alkaline Phosphatase 73 U/L (46-116); Anion Gap 13.4; Aspartate Amino Transferase 51 U/L (15-37); Blood Urea Nitrogen 13.0 mg/dL (7.0-18.0); Calcium 9.2 mg/dL (8.5-10.1); Carbon Dioxide 26.5 mmol/L (21.0-32.0); Chloride 107 mmol/L (98-107); Cholesterol 133 mg/dL (<=200); Estimated GFR (African America >60 (>=60 mL/min/1.73m^2); Estimated GFR (Non-African Ame >60 (>=60 mL/min/1.73m^2); Globulin 3.9 g/dL; Glucose 105 mg/dL (74-106); HDL Cholesterol 33 mg/dL (40-60); Potassium 3.9 mmol/L (3.5-5.1); Sodium 143 mmol/L (136-145); Thyroid Stimulating Hormone 1.068 uIU/mL (0.358-3.740); Total Protein 7.8 g/dL (6.4-8.2); Triglycerides 101 mg/dL (<=150); VLDL CHOLESTEROL 20.2 mg/dL
== END 2025-03-08 10:18 | disposition home or self-care (01) ==
LOC: LAB 10:18
PROVIDERS: PCP Internal Medicine; Visit Provider Internal Medicine
DX: E06.3 Autoimmune thyroiditis (principal); E78.00 Pure hypercholesterolemia, unspecified; I10 Essential (primary) hypertension
CPT/HCPCS: 36415; 80053; 80061; 84443; 85025